=== PATIENT | female | born 1945 | race Caucasian/White ===

== ENCOUNTER 2018-12-03 06:17 | Emergency (ER) | payer MEDICARE, SELFPAY ==
[~2018-12-03] VITALS: Ht 162.6 cm; Wt 59.1 kg
--- NOTE | 2018-12-03 07:49 | REP ---
Left knee five views: There are no comparisons. There is diffuse demineralization. There is no patellar fracture. There is no fracture, otherwise. There is no joint effusion. There is no joint space narrowing. There are no calcifications except for vascular atheroma in the popliteal artery. There is slight deformity at the upper pole of the patella, possibly an old healed patellar injury. Impression: Demineralization. No evidence of arthropathy. No acute fracture. Slight deformity at the upper pole patella on the lateral view, possibly sequela of an old healed injury. No joint effusion. Electronically Signed by Riccardo Barker MD 12/03/2018 07:40 A
[2018-12-03 08:18] VITALS: BP 149/66
== END 2018-12-03 08:22 | disposition home or self-care (01) ==
LOC: M ED 06:17
DX: T74.11XA Adult physical abuse, confirmed, initial encounter (principal); Y07.499 Other family member, perpetrator of maltreatment and neglect; S83.92XA Sprain of unspecified site of left knee, initial encounter; S50.12XA Contusion of left forearm, initial encounter; Y92.098 Other place in other non-institutional residence as the place of occurrence of the external cause; F17.200 Nicotine dependence, unspecified, uncomplicated; Z88.5 Allergy status to narcotic agent; Z91.030 Bee allergy status

== ENCOUNTER 2019-08-08 08:02 | Inpatient (IN) | payer MEDICARE, SELFPAY ==
[~2019-08-08] VITALS: Ht 165.1 cm; Wt 56.8 kg
[2019-08-08] MEDS ORDERED: NS 1,000 ML IV SCH (08:06)
[2019-08-08 08:25] LABS: BASO % 0.4 % (0.0-1.0); EOS % 0.3 % (0.0-3.0); HEMATOCRIT 39.1 % (36.0-47.0); HEMOGLOBIN 13.4 g/dl (12.0-15.5); LYMPH # 1.6 10^3/uL (1.5-5.0); LYMPH % 22.8 % (24.0-44.0); MEAN CORPUSCULAR HEMOGLOBIN 34.6 pg (27.0-33.0); MEAN CORPUSCULAR HGB CONC 34.3 g/dl (32.0-36.5); MONO # 0.6 10^3/uL (0.0-0.8); MONO % 9.2 % (0.0-5.0); NEUTROPHILS # 4.6 10^3/uL (1.5-8.5); NEUTROPHILS % 66.9 % (36.0-66.0); PLATELET COUNT, AUTOMATED 150 10^3/uL (150-450); RED BLOOD COUNT 3.87 10^6/uL (4.00-5.40); WHITE BLOOD COUNT 6.8 10^3/uL (4.0-10.0)
[2019-08-08 08:41] LABS: INR 0.92; PROTHROMBIN TIME 12.1 SECONDS (11.8-14.0)
[2019-08-08] MEDS ORDERED: ISOVUE-370 76% 100ML VIAL As Ordered ONE (08:56)
[2019-08-08 08:57] LABS: ALBUMIN 3.3 GM/DL (3.2-5.2); ALT/SGPT 60 U/L (12-78); BILIRUBIN,DIRECT 0.4 MG/DL (0.0-0.2); BILIRUBIN,TOTAL 1.6 MG/DL (0.2-1.0); LIPASE 151 U/L (73-393)
[2019-08-08] MEDS ORDERED: PANTOPRAZOLE 40MG VIAL (C9113 PER 1) IV ONE (09:00)
[2019-08-08 09:17] LABS: CK-MB VALUE MASS 1.2 NG/ML (<3.6); CPK CREATINE PHOSPHOKINASE 106 U/L (26-192); MB/CK RELATIVE INDEX 1.13 (< OR =4); TROPONIN I < 0.02 NG/ML (< 0.10)
--- NOTE | 2019-08-08 10:02 | REP ---
CT ABDOMEN AND PELVIS WITH IV CONTRAST: TECHNIQUE: Axial contrast-enhanced images from the lung bases to the pubic symphysis using 100 mL Isovue-370 intravenous contrast material with multiplanar reformations. In the visualized lung bases, there are fibroatelectatic changes. There are prominent thickened interstitial markings in the right lower lobe which may represent fibrosis or pneumonitis. There is diffuse fatty infiltration of the liver. No liver mass is seen. Spleen is normal in size with no intrinsic abnormality. No adrenal mass is seen. No pancreatic mass is seen. The patient has had a prior cholecystectomy with expected prominence of the common bile duct. There is bilateral renal cortical scarring with no hydronephrosis. There is a subcentimeter cyst of the lower pole of the right kidney. There is atherosclerotic calcification of the abdominal aorta without aneurysm. There is no adenopathy. There is no free air or free fluid. There is no bowel thickening. There are scattered diverticula of the sigmoid and left colon without acute diverticulitis. Urinary bladder is not well distended and not evaluated. There is as small ventral hernia in the midline of the pelvis containing noninflamed fat with the aperture of the hernia approximately 2.2 cm in width. There are degenerative changes of the spine. IMPRESSION: Scattered diverticula of the sigmoid and left colon without acute diverticulitis. No bowel obstruction, free air or free fluid. Small ventral hernia in the midline of the pelvis contains noninflamed fat. No other evidence of acute finding. Electronically Signed by Riccardo Jones MD 08/08/2019 10:10 A
[2019-08-08] MEDS: NS 1,000 ML IV SCH ×2 (10:37→17:33)
--- NOTE | 2019-08-08 10:57 | HPEPDOC ---
General Date of Admission 08/08/19 Date of Service: August 08, 2019 Chief Complaint The patient is a 73-year-old female admitted with a reason for visit of Hemorrhoids. Source: Patient Exam Limitations: No limitations Timing/Duration: 24 hours Severity: Mild Associated Symptoms: Other (rectal bleeding) History of Present Illness Patient is 73 years old female with past medical history of ovarian cancer, history of uterine cancer presented to the hospital with rectal bleeding. Patient stated that yesterday evening she developed multiple episodes of bowel movements with stool covered with red blood. Patient stated that she has never had this symptoms before. Patient denied any history of colonoscopy. She denied fever, chills, nausea, vomiting, lightheadedness or dizziness. In ER pt was found to have hemoglobin 13.4, no leukocytosis, blood pressure was elevated to 194/93. CT was done and showed scattered diverticula of the sigmoid and left colon without acute diverticulitis. No bowel obstruction, free air or free fluid Home Medications No Active Prescriptions or Reported Meds Allergies Coded Allergies: bee pollen (Verified Allergy, Severe, stops breathing, 12/03/18) codeine (Verified Allergy, Severe, stopped breathing , 12/03/18) morphine (Verified Allergy, Severe, stopped breathing, 12/03/18) oxycodone (Verified Allergy, Severe, stopped breathing, 12/03/18) Past Medical History Medical History Ovarian cancer, uterine cancer, cholecystectomy Surgical History Cholecystectomy, total ureterectomy Family History I personally reviewed family history and found not pertinent Social History * Smoker: current smoker Alcohol: Denies Drugs: denies A-FIB/CHADSVASC A-FIB History Current/History of A-Fib/PAF?: No Current PO Anticoag Therapy: No Review of Systems Constitutional: Denies: Chills, Fever Eyes: Denies: Pain, Vision change ENT: Denies: Head Aches Skin: Denies: Rash Pulmonary: Denies: Dyspnea, Cough Cardiovascular: Denies: Chest Pain Gastrointestinal: Reports: Other Symptoms (rectal bleeding); Denies: Nausea Genitourinary: Denies: Dysuria, Frequency Hematologic: Denies: Bruising Endocrine: Denies: Polydipsia, Polyphagia Musculoskeletal: Denies: Neck Pain Neurological: Denies: Weakness, Numbness Psych: Reports: Mood Normal Physical Examination General Exam: Positive: Alert, Cooperative Eye Exam: Positive: PERRLA ENT Exam: Positive: Atraumatic Neck Exam: Positive: Supple; Negative: JVD Chest Exam: Positive: Clear to auscultation Heart Exam: Positive: Rate Normal Telemetry: Positive: No significant arrhythmia Abdomen Exam: Positive: BS Hyperactive, Tenderness (LLQ tenderness) Extremity Exam: Positive: Clubbing; Negative: Cyanosis Skin Exam: Positive: Nl turgor and temperature Neuro Exam: Positive: Normal Gait, Strength at 5/5 X4 ext Psych Exam: Positive: Mental status NL Vital Signs Vital Signs Date Time Temp Pulse Resp B/P (MAP) Pulse Ox O2 Delivery O2 Flow Rate FiO2 08/08/19 09:30 83 156/70 (98) 97 Room Air 08/08/19 08:08 98.3 22 Laboratory Data Labs 24H Laboratory Tests 2 08/08/19 08:11: Immature Granulocyte % (Auto) 0.4, Neutrophils (%) (Auto) 66.9H, Lymphocytes (%) (Auto) 22.8L, Monocytes (%) (Auto) 9.2H, Eosinophils (%) (Auto) 0.3, Basophils (%) (Auto) 0.4, Neutrophils # (Auto) 4.6, Lymphocytes # (Auto) 1.6, Monocytes # (Auto) 0.6, Eosinophils # (Auto) 0.0, Basophils # (Auto) 0.0, Nucleated Red Blood Cells % (auto) 0.0, Prothrombin Time 12.1, Prothromb Time International Ratio 0.92, Activated Partial Thromboplast Time 29.0, Total Bilirubin 1.6H, Direct Bilirubin 0.4H, Aspartate Amino Transf (AST/SGOT) 61H, Alanine Aminotransferase (ALT/SGPT) 60, Alkaline Phosphatase 96, Total Creatine Kinase 106, Creatine Kinase MB 1.2, Creatine Kinase MB Relative Index 1.13, Troponin I < 0.02, Total Protein 7.0, Albumin 3.3, Albumin/Globulin Ratio 0.9L, Lipase 151 08/08/19 08:15: POC Glucose (Misc Panel) 114H, POC Sodium (Misc Panel) 134L, POC Potassium (Misc Panel) 3.4L, POC Chloride (Misc Panel) 96L, POC Total CO2 (Misc Panel) 24.0, POC Blood Urea Nitrogen (Misc Panel 7L, POC Ionized Calcium (Misc Panel) 4.2L, POC Creatinine (Misc Panel) 0.8, POC Hematocrit (Misc Panel) 43.0 CBC/BMP Laboratory Tests 08/08/19 08:11 Assessment/Plan Patient is 73 years old female with past medical history of ovarian cancer, history of uterine cancer presented to the hospital with rectal bleeding. Patient stated that yesterday evening she developed multiple episodes of bowel movements with stool covered with red blood. Patient stated that she has never had this symptoms before. Patient denied any history of colonoscopy. She denied fever, chills, nausea, vomiting, lightheadedness or dizziness. In ER pt was found to have hemoglobin 13.4, no leukocytosis, blood pressure was elevated to 194/93. CT was done and showed scattered diverticula of the sigmoid and left colon without acute diverticulitis. No bowel obstruction, free air or free fluid Problems (1) GI bleed Status: Acute Problem Text: Most likely secondary to diverticulosis Hemoglobin stable H&H every 6 hours if patient continues to bleed I will ask GI team to evaluate PPI IV fluid (2) Diverticulosis Status: Acute Problem Text: See above (3) Hypertensive urgency Status: Acute Problem Text: Lisinopril 20 mg Patient stated that she didn't see PCP for years Continue to monitor Plan / VTE VTE Prophylaxis Ordered?: No VTE Exclusion Pharmacological: Active Bleeding SARA ARMENDARIZ DO August 08, 2019 10:57
[2019-08-08] MEDS ORDERED: lisinopriL 20 MG TAB PO ONE (11:00)
[2019-08-08 11:30] VITALS: BP 157/72
--- NOTE | 2019-08-08 12:17 | ECGEPIP ---
[facility] - ED Test Date: 2019-08-08 Pat Name: JESSIE LUZ Department: Room: - Gender: Female Curber: : 1945 Requested By: Millie Oh Order Number: [id number] Reading MD: Delta Palmer Measurements Intervals Clio Rate: 87 P: 63 MD: 155 QRS: 68 QRSD: 101 T: 81 QT: 401 QTc: 484 Interpretive Statements SINUS RHYTHM Nonspecific ST-T wave abnormalities Perhaps lateral st depression but significant artifact Comparison tracing not on file Electronically Signed on 08-08-2019 12:17:03 EDT by Delta Palmer
[2019-08-08] MEDS: ACETAMINOPHEN TAB 650MG DOSE (2X325MG) PO PRN ×3 (12:26→22:46)
[2019-08-08 14:00] VITALS: BP 125/58
[2019-08-08 16:06] LABS: HEMATOCRIT 36.8 % (36.0-47.0); HEMOGLOBIN 12.5 g/dl (12.0-15.5)
[2019-08-08] MEDS: NICOTINE 21MG/24HR 1 EA TRANSDERMAL TD SCH (17:33)
[2019-08-08] MEDS ORDERED: MOM 30ML SUSPENSION UDC PO ONE (18:30)
[2019-08-08] MEDS: PANTOPRAZOLE 40MG VIAL (C9113 PER 1) IV SCH (20:45)
[2019-08-08 22:00] VITALS: BP 125/57
[2019-08-08 22:20] LABS: HEMATOCRIT 36.9 % (36.0-47.0); HEMOGLOBIN 12.4 g/dl (12.0-15.5)
[2019-08-09] MEDS: NS 1,000 ML IV SCH ×3 (03:36→23:24)
[2019-08-09 04:06] LABS: HEMATOCRIT 33.2 % (36.0-47.0); HEMOGLOBIN 11.3 g/dl (12.0-15.5); MEAN CORPUSCULAR HEMOGLOBIN 35.1 pg (27.0-33.0); MEAN CORPUSCULAR VOLUME 103.1 fl (80.0-96.0); PLATELET COUNT, AUTOMATED 118 10^3/uL (150-450); RED BLOOD COUNT 3.22 10^6/uL (4.00-5.40); WHITE BLOOD COUNT 5.7 10^3/uL (4.0-10.0)
[2019-08-09 04:40] LABS: ALBUMIN 2.6 GM/DL (3.2-5.2); ALT/SGPT 39 U/L (12-78); BILIRUBIN,TOTAL 1.3 MG/DL (0.2-1.0); BLOOD UREA NITROGEN 5 MG/DL (7-18); CALCIUM LEVEL 7.5 MG/DL (8.8-10.2); CARBON DIOXIDE LEVEL 26 MEQ/L (21-32); CHLORIDE LEVEL 104 MEQ/L (98-107); GLOMERULAR FILTRATION RATE > 60.0 (>39); GLUCOSE, FASTING 85 MG/DL (70-100); MAGNESIUM LEVEL 2.1 MG/DL (1.8-2.4); SODIUM LEVEL 139 MEQ/L (136-145); TOTAL PROTEIN 5.3 GM/DL (6.4-8.2)
[2019-08-09 06:00] VITALS: BP 121/59
[2019-08-09] MEDS ORDERED: POLYETHYLENE GLYCOL (MIRALAX) 238GM BOTTLE PO ONE ×2 (08:00→17:00)
[2019-08-09] MEDS: PANTOPRAZOLE 40MG VIAL (C9113 PER 1) IV SCH ×2 (08:51→21:12)
[2019-08-09] MEDS: NICOTINE 21MG/24HR 1 EA TRANSDERMAL TD SCH (08:52)
[2019-08-09] MEDS ORDERED: POTASSIUM CHLORIDE 10 MEQ SR TABLET PO ONE (09:00)
--- NOTE | 2019-08-09 11:51 | IPNPDOC ---
Text Note Date of Service The patient was seen on 08/09/19. NOTE Subjective: Pt developed a few bm overnight covered with blood. Patient denies fever, chills, nausea, vomiting, chest pain, dysuria Objective: VITAL SIGNS: Please see below. GENERAL: awake, alert, NAD HEENT: NCAT, anicteric sclera, STANISLAW NECK: supple, no JVD CARDIOVASCULAR EXAMINATION: NS1S2, regular rate/rhythm RESPIRATORY EXAMINATION: CTA b/l, no wheezes/rales/rhonchi ABDOMINAL EXAMINATION: positive bowel sounds x 4, mild tenderness in the left lower quadrant EXTREMITIES: no cyanosis, clubbing, edema SKIN: warm, no rashes. NEUROLOGICAL EXAMINATION: AAO x 3, no motor/sensory deficits PSYCHIATRIC EXAMINATION: calm, normal affect Assessment/Plan Patient is 73 years old female with past medical history of ovarian cancer, history of uterine cancer presented to the hospital with rectal bleeding. Patient stated that yesterday evening she developed multiple episodes of bowel movements with stool covered with red blood. Patient stated that she has never had this symptoms before. Patient denied any history of colonoscopy. She denied fever, chills, nausea, vomiting, lightheadedness or dizziness. In ER pt was found to have hemoglobin 13.4, no leukocytosis, blood pressure was elevated to 194/93. CT was done and showed scattered diverticula of the sigmoid and left colon without acute diverticulitis. No bowel obstruction, free air or free fluid Problems (1) GI bleed Most likely secondary to diverticulosis Hemoglobin stable H&H every 6 hours GI team will proceed with colonoscopy tomorrow PPI IV fluid (2) Diverticulosis See above (3) Hypertensive urgency Lisinopril 20 mg Patient stated that she didn't see PCP for years Continue to monitor Plan / VTE VTE Prophylaxis Ordered?: No VTE Exclusion Pharmacological: Active Bleeding VS,Fishbone, I+O VS, Fishbone, I+O Laboratory Tests 08/08/19 15:52 08/08/19 22:01 08/09/19 04:01 08/09/19 10:53 Vital Signs Date Time Temp Pulse Resp B/P (MAP) Pulse Ox O2 Delivery O2 Flow Rate FiO2 08/09/19 06:00 98.4 77 18 121/59 (79) 97 Room Air I&O- Last 24 Hours up to 6 AM 08/09/19 05:59 Intake Total 1880 ml Output Total 0 ml Balance 1880 ml SARA ARMENDARIZ DO August 09, 2019 11:51
[2019-08-09 14:00] VITALS: BP 134/65
[2019-08-09 15:56] LABS: HEMATOCRIT 37.8 % (36.0-47.0); HEMOGLOBIN 13.1 g/dl (12.0-15.5)
[2019-08-09] MEDS ORDERED: MIRALAX *UNIT DOSE* 17GM PACKET PO ONE (17:15)
[2019-08-09] MEDS ORDERED: lisinopriL 20 MG TAB PO SCH (21:00)
[2019-08-09 21:12] VITALS: BP 134/65
[2019-08-09 22:00] VITALS: BP 182/95
[2019-08-09 22:22] LABS: HEMATOCRIT 35.2 % (36.0-47.0); HEMOGLOBIN 11.9 g/dl (12.0-15.5)
[2019-08-10 04:00] LABS: HEMATOCRIT 34.4 % (36.0-47.0); HEMOGLOBIN 11.7 g/dl (12.0-15.5)
[2019-08-10 06:00] VITALS: BP 162/83
[2019-08-10 07:48] VITALS: BP 171/79
[2019-08-10 08:36] LABS: BLOOD UREA NITROGEN 2 MG/DL (7-18); CALCIUM LEVEL 7.7 MG/DL (8.8-10.2); CARBON DIOXIDE LEVEL 25 MEQ/L (21-32); CHLORIDE LEVEL 103 MEQ/L (98-107); CREATININE FOR GFR 0.42 MG/DL (0.55-1.30); GLOMERULAR FILTRATION RATE > 60.0 (>39); GLUCOSE, FASTING 73 MG/DL (70-100); MAGNESIUM LEVEL 1.9 MG/DL (1.8-2.4); POTASSIUM SERUM 2.7 MEQ/L (3.5-5.1); SODIUM LEVEL 139 MEQ/L (136-145)
[2019-08-10] MEDS ORDERED: LIDOCAINE 2% 100MG/5ML SDV (FOR ANES.) As Ordered ONE (08:44)
[2019-08-10] MEDS ORDERED: propofoL 200 MG/20 ML VIAL As Ordered ONE ×2 (08:44→09:09)
--- NOTE | 2019-08-10 09:26 | ROOR ---
Patient Name: Chen Blanca Procedure Date: 08/10/2019 8:16 AM Date of : 1945 Age: 73 Room: Main OR Gender: Female Note Status: Finalized Procedure: Colonoscopy Indications: Hematochezia, Acute post hemorrhagic anemia Providers: Delta DIA MD Referring MD: 2. Inpatient 2. Inpatient Requesting Provider: Medicines: Monitored Anesthesia Care Complications: No immediate complications. Procedure: Pre-Anesthesia Assessment: - The heart rate, respiratory rate, oxygen saturations, blood pressure, adequacy of pulmonary ventilation, and response to care were monitored throughout the procedure. The Colonoscope was introduced through the anus and advanced to the cecum, identified by appendiceal orifice and ileocecal valve. The colonoscopy was somewhat difficult due to multiple diverticula in the colon. The patient tolerated the procedure well. The quality of the bowel preparation was fair. Findings: Hemorrhoids were found on perianal exam. A frond-like/villous non-obstructing medium-sized mass was found in the proximal ascending colon. The mass measured four cm in length. No bleeding was present. The polyp was partially removed with a piecemeal technique using a cold snare. Polyp resection was incomplete. The resected tissue was retrieved. Multiple small and large-mouthed diverticula were found in the sigmoid colon. There was narrowing of the colon in association with the diverticular opening. There was evidence of diverticular spasm. Prolapsed internal hemorrhoids were found during retroflexion. The hemorrhoids were medium-sized. Impression: - Preparation of the colon was fair/suboptimal in a few areas. - Hemorrhoids found on perianal exam. - 4 cm flat multilobed villous lesion in the proximal ascending colon (3 cm distal to ileocecal valve). The lesion was sampled via cold snare. The lesion was NOT REMOVED. - Moderate diverticulosis in the sigmoid colon. There was narrowing of the colon in association with the diverticular opening. There was evidence of diverticular spasm. - Prolapsed internal hemorrhoids. (- Suspect source for rectal bleeding is related to hemorrhoidal bleed, or related to a low grade diverticular bleed. There is no further bleeding at this time) Recommendation: - Await pathology results. - Refer to a surgeon for resection of ascending colon lesion at appointment to be scheduled. (endoscopically unresectable). - Repeat colonoscopy in 1-2 years post resection. (suboptimal prep in a few areas). Delta Dia MD Delta DIA MD 08/10/2019 9:25:46 AM Electronically signed by Delta DIA MD Number of Addenda: 0 Note Initiated On: 08/10/2019 8:16 AM Estimated Blood Loss: Estimated blood loss: none.
[2019-08-10 10:19] LABS: HEMOGLOBIN 11.8 g/dl (12.0-15.5)
[2019-08-10] MEDS: PANTOPRAZOLE 40MG VIAL (C9113 PER 1) IV SCH (10:22)
[2019-08-10] MEDS: NICOTINE 21MG/24HR 1 EA TRANSDERMAL TD SCH (10:23)
[2019-08-10] MEDS ORDERED: POTA20TA6 PO (10:52)
[2019-08-10] MEDS ORDERED: NICO21PAT TD (10:52)
[2019-08-10] MEDS ORDERED: LISI-538 PO (10:52)
[2019-08-10] MEDS ORDERED: POTASSIUM CHLORIDE 10 MEQ SR TABLET PO ONE ×3 (11:00→16:00)
[2019-08-10] MEDS ORDERED: KCL 10MEQ/100ML SWI (KRUN) 10 MEQ in IV 1 EA IV ONE (11:00)
[2019-08-10] MEDS: NS 1,000 ML IV SCH (12:22)
--- NOTE | 2019-08-10 13:28 | DS.PDOC ---
Discharge Summary General Date of Admission August 08, 2019 at 10:22 Date of Discharge 08/10/19 Discharge Summary PROCEDURES PERFORMED DURING STAY: [None]. ADMITTING DIAGNOSES: GI bleed Diverticulosis Hypertensive urgency DISCHARGE DIAGNOSES: GI bleed Diverticulosis Hypertensive urgency COMPLICATIONS/CHIEF COMPLAINT: Gi Bleed. HISTORY OF PRESENT ILLNESS: Patient is 73 years old female with past medical history of ovarian cancer, history of uterine cancer presented to the hospital with rectal bleeding. Patient stated that yesterday evening she developed multiple episodes of bowel movements with stool covered with red blood. Patient stated that she has never had this symptoms before. Patient denied any history of colonoscopy. She denied fever, chills, nausea, vomiting, lightheadedness or dizziness. In ER pt was found to have hemoglobin 13.4, no leukocytosis, blood pressure was elevated to 194/93. CT was done and showed scattered diverticula of the sigmoid and left colon without acute diverticulitis. No bowel obstruction, free air or free fluid HOSPITAL COURSE: During hospital stay following issues addressed Colonoscopy was done. It showed Findings: Hemorrhoids were found on perianal exam. A frond-like/villous non-obstructing medium-sized mass was found in the proximal ascending colon. The mass measured four cm in length. No bleeding was present. The polyp was partially removed with a piecemeal technique using a cold snare. Polyp resection was incomplete. The resected tissue was retrieved. Multiple small and large-mouthed diverticula were found in the sigmoid colon. There was narrowing of the colon in association with the diverticular opening. There was evidence of diverticular spasm. Prolapsed internal hemorrhoids were found during retroflexion. The hemorrhoids were medium-sized. Impression: - Preparation of the colon was fair/suboptimal in a few areas. - Hemorrhoids found on perianal exam. - 4 cm flat multilobed villous lesion in the proximal ascending colon (3 cm distal to ileocecal valve). The lesion was sampled via cold snare. The lesion was NOT REMOVED. - Moderate diverticulosis in the sigmoid colon. There was narrowing of the colon in association with the diverticular opening. There was evidence of diverticular spasm. - Prolapsed internal hemorrhoids. (- Suspect source for rectal bleeding is related to hemorrhoidal bleed, or related to a low grade diverticular bleed. There is no further bleeding at this time) Recommendation: - Await pathology results. - Refer to a surgeon for resection of ascending colon lesion at appointment to be scheduled. (endoscopically unresectable). - Repeat colonoscopy in 1-2 years post resection. (suboptimal prep in a few areas). DISCHARGE MEDICATIONS: Please see below. ALLERGIES: Please see below. PHYSICAL EXAMINATION ON DISCHARGE: VITAL SIGNS: Please see below. GENERAL: awake, alert, NAD HEENT: NCAT, anicteric sclera, STANISLAW NECK: supple, no JVD CARDIOVASCULAR EXAMINATION: NS1S2, regular rate/rhythm RESPIRATORY EXAMINATION: CTA b/l, no wheezes/rales/rhonchi ABDOMINAL EXAMINATION: positive bowel sounds x 4, mild tenderness in the left lower quadrant EXTREMITIES: no cyanosis, clubbing, edema SKIN: warm, no rashes. NEUROLOGICAL EXAMINATION: AAO x 3, no motor/sensory deficits PSYCHIATRIC EXAMINATION: calm, normal affect LABORATORY DATA: Please see below. IMAGING: CT ABDOMEN AND PELVIS WITH IV CONTRAST: TECHNIQUE: Axial contrast-enhanced images from the lung bases to the pubic symphysis using 100 mL Isovue-370 intravenous contrast material with multiplanar reformations. In the visualized lung bases, there are fibroatelectatic changes. There are prominent thickened interstitial markings in the right lower lobe which may represent fibrosis or pneumonitis. There is diffuse fatty infiltration of the liver. No liver mass is seen. Spleen is normal in size with no intrinsic abnormality. No adrenal mass is seen. No pancreatic mass is seen. The patient has had a prior cholecystectomy with expected prominence of the common bile duct. There is bilateral renal cortical scarring with no hydronephrosis. There is a subcentimeter cyst of the lower pole of the right kidney. There is atherosclerotic calcification of the abdominal aorta without aneurysm. There is no adenopathy. There is no free air or free fluid. There is no bowel thickening. There are scattered diverticula of the sigmoid and left colon without acute diverticulitis. Urinary bladder is not well distended and not evaluated. There is as small ventral hernia in the midline of the pelvis containing noninflamed fat with the aperture of the hernia approximately 2.2 cm in width. There are degenerative changes of the spine. IMPRESSION: Scattered diverticula of the sigmoid and left colon without acute diverticulitis. No bowel obstruction, free air or free fluid. Small ventral hernia in the midline of the pelvis contains noninflamed fat. No other evidence of acute finding. PROGNOSIS: Fair ACTIVITY: [As tolerated]. DIET: Cardiac DISPOSITION: Home DISCHARGE INSTRUCTIONS: See above ITEMS TO FOLLOWUP ON ON OUTPATIENT: Follow-up with PCP, surgeon, GI DISCHARGE CONDITION: [Stable]. TIME SPENT ON DISCHARGE: Greater than 20 minutes. Vital Signs/I&Os Vital Signs Date Time Temp Pulse Resp B/P (MAP) Pulse Ox O2 Delivery O2 Flow Rate FiO2 08/10/19 09:32 75 16 142/85 (104) 99 Room Air 08/10/19 09:17 97.1 I&O- Last 24 Hours up to 6 AM 08/10/19 05:59 Intake Total 2470 ml Output Total 0 ml Balance 2470 ml Laboratory Data Labs 24H Laboratory Tests 2 08/10/19 03:50: Anion Gap 11, Glomerular Filtration Rate > 60.0, Calcium Level 7.7L, Magnesium Level 1.9 08/10/19 13:11: CBC/BMP Laboratory Tests 08/09/19 15:43 08/09/19 22:04 08/10/19 03:50 08/10/19 09:59 Discharge Medications Scheduled Lisinopril (Lisinopril) 20 Mg Tablet, 20 MG PO QHS Nicotine (Nicotine Patch) 21 Mg Patch.td24, 1 PATCH TD DAILY Potassium Chloride (Potassium Chloride) 20 Meq Tab.er.prt, 1 TAB PO DAILY Allergies Coded Allergies: bee pollen (Verified Allergy, Severe, stops breathing, 12/03/18) codeine (Verified Allergy, Severe, stopped breathing , 12/03/18) morphine (Verified Allergy, Severe, stopped breathing, 12/03/18) oxycodone (Verified Allergy, Severe, stopped breathing, 12/03/18) SARA ARMENDARIZ DO August 10, 2019 13:28
[2019-08-10 13:56] LABS: BLOOD UREA NITROGEN 2 MG/DL (7-18); CALCIUM LEVEL 7.6 MG/DL (8.8-10.2); CARBON DIOXIDE LEVEL 25 MEQ/L (21-32); CHLORIDE LEVEL 101 MEQ/L (98-107); CREATININE FOR GFR 0.67 MG/DL (0.55-1.30); GLOMERULAR FILTRATION RATE > 60.0 (>39); GLUCOSE, FASTING 188 MG/DL (70-100); POTASSIUM SERUM 2.7 MEQ/L (3.5-5.1); SODIUM LEVEL 135 MEQ/L (136-145)
[2019-08-10 14:00] VITALS: BP 158/81
[2019-08-10 14:57] LABS: BASO % 0.5 % (0.0-1.0); EOS # 0.1 10^3/uL (0.0-0.5); EOS % 1.2 % (0.0-3.0); LYMPH # 1.8 10^3/uL (1.5-5.0); LYMPH % 27.6 % (24.0-44.0); MEAN CORPUSCULAR HEMOGLOBIN 35.3 pg (27.0-33.0); MEAN CORPUSCULAR HGB CONC 34.3 g/dl (32.0-36.5); MONO # 0.6 10^3/uL (0.0-0.8); MONO % 8.7 % (0.0-5.0); NEUTROPHILS % 61.5 % (36.0-66.0); PLATELET COUNT, AUTOMATED 121 10^3/uL (150-450); RED BLOOD COUNT 3.31 10^6/uL (4.00-5.40); WHITE BLOOD COUNT 6.6 10^3/uL (4.0-10.0)
== END 2019-08-10 16:00 | disposition home or self-care (01) | DRG 379 ==
LOC: M ED 08:02 → EDBD 08:02 → M ED INP 10:22 → ENRESERV 11:00 → M MS5PR 11:30
PROVIDERS: ADMIT Internal Medicine; ATTEND Internal Medicine
PROC: 0DBK8ZX Excision of Ascending Colon, Via Natural or Artificial Opening Endoscopic, Diagnostic (ICD-10-PCS; principal; 2019-08-10 08:00)
DX: K57.31 Diverticulosis of large intestine without perforation or abscess with bleeding (principal); K64.8 Other hemorrhoids; F17.200 Nicotine dependence, unspecified, uncomplicated; I16.0 Hypertensive urgency; K63.89 Other specified diseases of intestine; D12.2 Benign neoplasm of ascending colon; Z85.43 Personal history of malignant neoplasm of ovary; Z85.42 Personal history of malignant neoplasm of other parts of uterus; Z88.5 Allergy status to narcotic agent; Z91.030 Bee allergy status

== ENCOUNTER → 2019-10-09 | Outpatient (REF) | payer MEDICARE, MEDICAID ==
[~2019-10-09] MED LIST: ACET-897 PO; AMLO1TAB24 PO; LISI-538 PO; MULTCAP PO; NICO21PAT TD; POTA20TA6 PO; VITMTA PO
[2019-11-06 13:09] LABS: HEMATOCRIT 45.8 % (36.0-47.0); HEMOGLOBIN 15.3 g/dl (12.0-15.5); MEAN CORPUSCULAR HEMOGLOBIN 34.7 pg (27.0-33.0); MEAN CORPUSCULAR HGB CONC 33.4 g/dl (32.0-36.5); MEAN CORPUSCULAR VOLUME 103.9 fl (80.0-96.0); PLATELET COUNT, AUTOMATED 240 10^3/uL (150-450); RED BLOOD COUNT 4.41 10^6/uL (4.00-5.40); WHITE BLOOD COUNT 8.6 10^3/uL (4.0-10.0)
[2019-11-09 08:08] LABS: ALBUMIN 3.3 GM/DL (3.2-5.2); ALT/SGPT 44 U/L (12-78); BILIRUBIN,TOTAL 0.7 MG/DL (0.2-1.0); BLOOD UREA NITROGEN 5 MG/DL (7-18); CALCIUM LEVEL 9.2 MG/DL (8.8-10.2); CARBON DIOXIDE LEVEL 30 MEQ/L (21-32); CHLORIDE LEVEL 97 MEQ/L (98-107); CHOLESTEROL LEVEL 234 MG/DL (<200); CHOLESTEROL RISK RATIO 2.962 (<5); CREATININE FOR GFR 0.75 MG/DL (0.55-1.30); GLOMERULAR FILTRATION RATE > 60.0 (>39); GLUCOSE, FASTING 119 MG/DL (70-100); HDL CHOLESTEROL 79 MG/DL (>40); LDL CHOLESTEROL 134 MG/DL (<100); NON-HDL-C 155 MG/DL; POTASSIUM SERUM 4.5 MEQ/L (3.5-5.1); SODIUM LEVEL 135 MEQ/L (136-145); TRIGLYCERIDES LEVEL 105 MG/DL (<150)
[2019-11-12 10:31] LABS: HEMOGLOBIN A1c 4.9 %
== END ==
LOC: M SFHCPLAZ 14:09
PROVIDERS: ATTEND Family Medicine
DX: Z01.818 Encounter for other preprocedural examination (principal); Z13.1 Encounter for screening for diabetes mellitus; E87.6 Hypokalemia; E78.5 Hyperlipidemia, unspecified; K62.5 Hemorrhage of anus and rectum

== ENCOUNTER → 2019-10-13 | Outpatient (CLI) | payer MEDICARE, MEDICAID | LOC: EDSTATUS 15:09 → M ED 18:50 → M RAD 18:50 | PROVIDERS: ATTEND Surgery | DX: Z01.818 Encounter for other preprocedural examination (principal); D12.2 Benign neoplasm of ascending colon ==

== ENCOUNTER 2019-10-14 10:00 | Inpatient (IN) | payer MEDICARE, MEDICAID ==
[~2019-10-14] VITALS: Ht 167.6 cm; Wt 64.0 kg
[~2019-10-14 10:00] MED LIST changes: -ACET-897 PO; -AMLO1TAB24 PO; -VITMTA PO
[2019-10-14] MEDS ORDERED: cefoTEtan INJ 2GM VIAL (S0074 PER 500MG) As Ordered ONE (10:31)
[2019-10-14] MEDS ORDERED: ALVIMOPAN 12 MG CAPSULE (ENTEREG) As Ordered ONE (10:31)
[2019-10-14] MEDS ORDERED: LIDOCAINE 2% 100MG/5ML SDV (FOR ANES.) As Ordered ONE (13:09)
[2019-10-14] MEDS ORDERED: propofoL 200 MG/20 ML VIAL As Ordered ONE (13:09)
[2019-10-14] MEDS ORDERED: fentaNYL 250 MCG/5 ML INJECTION (J3010) As Ordered ONE (13:10)
[2019-10-14] MEDS ORDERED: ROCURONIUM BROMIDE 50 MG/5 ML VIAL As Ordered ONE ×2 (13:10→16:23)
[2019-10-14] MEDS ORDERED: MIDAZOLAM INJ 2MG/2ML VIAL (J2250 PER 1MG) As Ordered ONE (13:10)
[2019-10-14] MEDS ORDERED: BUPIVACAINE HCL 0.25% 30ML VIAL As Ordered ONE (13:54)
[2019-10-14] MEDS ORDERED: metroNIDAZOLE/NACL 500MG(5MG/ML) 100ML BAG (S0030) As Ordered ONE (14:18)
[2019-10-14] MEDS ORDERED: PHENYLephrine HCL 500 MCG/5 ML (100MCG/ML) SYRINGE (J2370) As Ordered ONE (15:17)
[2019-10-14] MEDS ORDERED: dexameTHASONE 4 MG/ML 1ML VIAL (J1100 PER 1MG) As Ordered ONE (15:30)
[2019-10-14] MEDS ORDERED: ONDANSETRON 4MG/2ML VIAL As Ordered ONE (16:49)
[2019-10-14] MEDS ORDERED: SUGAMMADEX SODIUM 500 MG/5 ML VIAL (BRIDION) As Ordered ONE (16:49)
[2019-10-14] MEDS ORDERED: ACETAMINOPHEN 1000MG 100ML IV BTL (OFIRMEV) (J0131 PER 10MG) As Ordered ONE (17:07)
[2019-10-14] MEDS ORDERED: HYDROmorphone HCL 2 MG/ML 1ML VIAL (J1170) As Ordered ONE (17:28)
[2019-10-14] MEDS ORDERED: ePHEDrine SULFATE 25 MG/5 ML(5MG/ML) SYRINGE As Ordered ONE (17:41)
[2019-10-14] MEDS ORDERED: HYDROMORPHONE HCL 0.5 MG/ 0.5 ML SYRINGE (J1170 PER 1) As Ordered ONE ×3 (18:52→19:20)
[2019-10-14] MEDS ORDERED: KETOROLAC 30 MG/ML 1ML VIAL As Ordered ONE (19:20)
[2019-10-14] MEDS ORDERED: metroNIDAZOLE/NACL 500MG(5MG/ML) 100ML BAG (S0030) ONE (22:47)
[2019-10-14] MEDS ORDERED: ACETAMINOPHEN 325 MG TAB ONE (22:52)
[2019-10-15] MEDS ORDERED: HYDROMORPHONE HCL 0.5 MG/ 0.5 ML SYRINGE (J1170 PER 1) As Ordered ONE ×4 (01:08→20:54)
[2019-10-15] MEDS ORDERED: KETOROLAC 30 MG/ML 1ML VIAL As Ordered ONE ×2 (08:05→16:09)
[2019-10-15] MEDS ORDERED: metroNIDAZOLE/NACL 500MG(5MG/ML) 100ML BAG (S0030) As Ordered ONE (08:06)
[2019-10-15] MEDS ORDERED: NICOTINE 14 MG/24 HR TRANSDERMAL As Ordered ONE (10:25)
[2019-10-15] MEDS ORDERED: ACETAMINOPHEN TAB 650MG DOSE (2X325MG) As Ordered ONE ×2 (12:05→23:49)
[2019-10-15] MEDS ORDERED: cefoTEtan INJ 1GM VIAL (S0074 PER 500MG) ONE (13:00)
[2019-10-15] MEDS ORDERED: ONDANSETRON 4MG/2ML VIAL As Ordered ONE (20:59)
[2019-10-16] MEDS ORDERED: HYDROMORPHONE HCL 0.5 MG/ 0.5 ML SYRINGE (J1170 PER 1) As Ordered ONE ×2 (05:57→13:52)
[2019-10-16] MEDS ORDERED: NICOTINE 14 MG/24 HR TRANSDERMAL As Ordered ONE (09:35)
[2019-10-16] MEDS ORDERED: IBUPROFEN 400 MG TAB As Ordered ONE (18:58)
[2019-10-16] MEDS ORDERED: ACETAMINOPHEN 325 MG TAB As Ordered ONE (22:02)
[2019-10-17] MEDS ORDERED: IBUPROFEN 400 MG TAB As Ordered ONE (01:05)
[2019-10-17] MEDS ORDERED: ACETAMINOPHEN 325 MG TAB As Ordered ONE (07:41)
[2019-10-17] MEDS ORDERED: NICOTINE 14 MG/24 HR TRANSDERMAL As Ordered ONE (09:12)
--- NOTE | 2019-11-26 13:19 | IPN ---
DATE: 10/15/2019 SUBJECTIVE: Patient is now postop day one from a robotic-assisted laparoscopic right hemicolectomy for a polyp of the proximal ascending colon. She is general has done very well following the surgery. She has been taking some clear liquids, but has not taken much yet. She has been out of bed to the bathroom. She denies any nausea or vomiting, but is having some abdominal pain. OBJECTIVE: VITAL SIGNS: Reveal that she has been afebrile and there is no evidence of tachycardia. Her blood pressure is acceptable. GENERAL: Patient is awake and alert. HEART: Shows a regular rhythm. LUNGS: Clear. ABDOMEN: Shows that her incisions are dressed and her dressings are clean and dry. The abdomen may be very slightly distended. She does have bowel sounds present. She is tender particularly in the right mid-abdomen about at the level of her longer midline incision. IMPRESSION: Patient is doing well postoperative day one from her right hemicolectomy. PLAN: She will be advanced to a full liquid diet. We will monitor her intake and saline lock her IV when she has taken an adequate amount. She is encouraged to be up out of bed. She has some pain medication ordered, and she was encouraged to use this as necessary. I advised her that I would expect her to be ready for discharge on or about the third postop day. WEI
--- NOTE | 2019-11-26 13:21 | IPN ---
DATE: 10/16/2019 SUBJECTIVE: Patient is now postop day two from a right hemicolectomy for a large non-endoscopically resectable polyp. Her pathology is still pending. Patient reports she feels much better today with decreased pain. She has been taking liquids well and has been advanced to a regular diet. OBJECTIVE: VITAL SIGNS: Show she has been afebrile with stable vitals. LUNGS: She has clear breath sounds. HEART: Regular rate and rhythm. ABDOMEN: Nondistended. She has active bowel sounds. She still has some tenderness in the right side of the abdomen. Her incisions are clean and dry with no sign of hematoma or infection. EXTREMITIES: The calves are nontender and there is no peripheral edema identified. IMPRESSION: Patient is doing much better today pain-joyce following her right hemicolectomy. PLAN: She was encouraged to continue her regular diet. She has noted some small amount of stool today on one occasion and has been passing some flatus. I advised her that if she continues to do well that I would anticipate, she would be ready for discharge tomorrow on postop day three. WEI
[2019-12-13 08:44] LABS: HEMATOCRIT 37.8 % (36.0-47.0); HEMOGLOBIN 12.2 g/dl (12.0-15.5); MEAN CORPUSCULAR HEMOGLOBIN 34.6 pg (27.0-33.0); MEAN CORPUSCULAR HGB CONC 32.3 g/dl (32.0-36.5); MEAN CORPUSCULAR VOLUME 107.1 fl (80.0-96.0); PLATELET COUNT, AUTOMATED 182 10^3/uL (150-450); RED BLOOD COUNT 3.53 10^6/uL (4.00-5.40); WHITE BLOOD COUNT 9.1 10^3/uL (4.0-10.0)
--- NOTE | 2019-12-18 15:17 | RO ---
DATE OF OPERATION: 10/14/2019 PREOPERATIVE DIAGNOSIS: Ascending colon polyp. POSTOPERATIVE DIAGNOSIS: Non-endoscopically resectable ascending colon polyp. PROCEDURE(S) PERFORMED: Robotic-assisted laparoscopic right hemicolectomy with ileocolonic anastomosis. Lysis of adhesions was also performed. SURGEON: Richard Cabezas M.D. PHARMACEUTICAL ANALYST: DO Dr. Oscar Lin assistance was necessary for exposure of the ends of the terminal ileum and colon and performance and the stapled anastomosis. ANESTHESIA: General. INDICATIONS FOR PROCEDURE: The patient is a 74-year-old woman who on endoscopy was found to have an approximately 3-4 cm sessile polyp in the proximal ascending colon. Some biopsies were obtained with a cold snare, which confirmed an adenoma, but the closing agent felt that this was a non-endoscopically resectable polyp and recommended resection. She is now for a right hemicolectomy. OPERATIVE PROCEDURE: The patient was brought in the operating room and placed on the table in a supine position. She was placed under general endotracheal anesthesia. TEDs and sequentials were utilized. A Barry catheter was inserted. Patient was placed supine. The patients abdomen was prepped and draped in a sterile fashion. A 0.25% Marcaine was infiltrated in each of the trocar sites as needed. A short transverse high left upper quadrant incision was made. A Veress needle was inserted and after posit positive hanging drop test, the abdomen was inflated with carbon dioxide gas. An 8-mm robotic port was placed over a 5-mm scope and advanced through the abdominal wall without difficulty. The laparoscope was inserted. Initial examination showed some adhesions of the lower midline associated with a low midline incision she had. There were also some adhesions in the upper abdomen along the midline and right upper quadrant from a previous cholecystectomy. A second 8-mm port was placed slightly to the right of the midline and slightly above the level of the umbilicus. Using a handheld cauterizing scissor through this port, some of the adhesions were taken down to better expose the midline and locate the areas for the remaining two trocars. A third 12-mm port was placed along the midline just below the umbilicus and a fourth port was placed in the left lower quadrant. The patient cart of the [employer] robot was then brought into position and the endoscope port was docked. Targeting took place in the right upper quadrant in the general area of the hepatic flexure. A cauterizing scissor was placed in the left upper quadrant and a grasping retractor and force bipolar were placed in the right lower quadrant and low midline ports. I then moved to the control consol to begin the robotic portion of the procedure. I continued to take down some adhesions in the upper abdomen and right upper quadrant. The ascending colon was clearly identified. There were some adhesions of the colon along the lateral aspect of the abdomen. Colon was also fairly well-adhesed to the undersurface of the liver in the area of her previous cholecystectomy. Inspection of the ileocolic area showed that the terminal ileum was nicely mobile. A few filmy attachments of the terminal ileum to the retroperitoneum were divided using the cauterizing scissor. I selected a point for transection of the terminal ileum and created a small opening through the mesentery at that point. The lateral attachments of the cecum and ascending colon were divided using the cauterizing scissor initially and the avascular plane was entered and the colon rolled medially. The transverse colon was identified. Using the vessel feeler, the attachments of the mid and proximal transverse colon were divided. This was carried from the midpoint across beneath the liver where the colon was quite adherent to the liver. The peritoneum was opened and the fatty tissues of the attachments in this area were divided using the vessel feeler. The retroperitoneal portion of the duodenum was identified and protected. The dissection was carried across the superior aspect of the hepatic flexure then down along the lateral aspect of the ascending colon. Once the hepatic flexure had been largely mobilized, the terminal ileum was transected with a blue load of the endoscopic 45-mm robotic stapler. The mesentery was dissected down to its base with the vessel feeler. The transverse colon was then transected in the proximal transverse colon with a load of the 45-mm stapler. Again, the mesentery was divided down to its base. Attention was then turned to the ileocolic vessel. This was divided near its base in the retroperitoneum and the mesentery of the ascending colon was then divided working proximally. The final attachments of the mesentery of the distal ascending colon were then divided completely freeing the specimen. Inspection revealed no evidence of any injury to the duodenum. There was no bleeding identified. The terminal ileum and proximal transverse colon were then checked for their degree of mobility. It was necessary to divide some of the attachments of the omentum to the superior aspect of the transverse colon to allow adequate mobility for this to come to the area of the anastomosis. The robot was then undocked after removing the robotic instruments. A handheld laparoscope was inserted and graspers were used to grab the specimen, the end of the terminal ileum, and the end of the colon. A midline incision was made at the site of the infraumbilical midline port site. This was extended to approximately 6-7 cm. The fascia was opened and the peritoneum was then entered. A Mobius retractor was utilized. The specimen was delivered. There did appear to be some thickening in the wall of the proximal ascending colon. This was subsequently opened longitudinally revealing an approximately 3.5 cm fleshy mass just distal to the ileocecal valve. There also appeared to be an approximately 1.5 to 2 cm submucosal lipoma in the ascending colon. The specimen was sent for permanent pathology. The end of the terminal ileum and the end of the colon were brought through the Mobius retractor. The bowel nicely lined up for a stapled anastomosis. This was accomplished with a linear cutter 55 stapler and a TX60G stapler to complete the anastomosis. Several reinforcing sutures of 3-0 Vicryl were placed. The area of the anastomosis was then irrigated with saline and this was then reduced into the abdomen. The Mobius retractor was removed. The surgical team changed gloves and we then moved on with the closing tray. The fascia was somewhat thinned, particularly on the right side of the incision, which had been placed through an old scar from her prior hysterectomy. The edges of the fascia were trimmed and better identified, and the incision was then closed with interrupted simple sutures of 1-Vicryl. The skin incisions were then all closed with buried 4-0 Vicryl and Steri-Strips. Light dressings were applied. The patient tolerated the procedure well without apparent complication. The patients Barry catheter was removed. She was awakened in the operating room, extubated, and moved to the recovery room in stable condition. WEI
[2020-01-07 15:09] LABS: BLOOD UREA NITROGEN 8 MG/DL (7-18); GLUCOSE, FASTING 139 MG/DL (70-100)
[2020-01-07 15:10] LABS: CALCIUM LEVEL 8.1 MG/DL (8.8-10.2); CARBON DIOXIDE LEVEL 29 mmol/L (20-29); CHLORIDE LEVEL 105 MEQ/L (98-107); CREATININE FOR GFR 0.89 MG/DL (0.55-1.30); GLOMERULAR FILTRATION RATE > 60.0 (>39); POTASSIUM SERUM 4.5 MEQ/L (3.5-5.1); SODIUM LEVEL 137 MEQ/L (136-145)
== END 2019-10-17 07:55 | disposition home or self-care (01) | DRG 331 ==
LOC: M MS5PR 12:30
PROVIDERS: ADMIT Surgery; ATTEND Surgery
PROC: 0DTF4ZZ Resection of Right Large Intestine, Percutaneous Endoscopic Approach (ICD-10-PCS; principal; 2019-10-14)
PROC: 8E0WXCZ Robotic Assisted Procedure of Trunk Region (ICD-10-PCS; 2019-10-14)
DX: D12.2 Benign neoplasm of ascending colon (principal)

== ENCOUNTER → 2020-01-07 | Outpatient (REF) | payer MEDICARE ==
[~2020-01-07] MED LIST changes: +ACET-897 PO; +AMLO1TAB24 PO; +VITMTA PO
[2020-01-07 17:15] LABS: BASO # 0.1 10^3/uL (0.0-0.2); BASO % 0.6 % (0.0-1.0); EOS # 0.1 10^3/uL (0.0-0.5); EOS % 0.9 % (0.0-3.0); HEMATOCRIT 45.3 % (36.0-47.0); HEMOGLOBIN 14.7 g/dl (12.0-15.5); LYMPH # 2.9 10^3/uL (1.5-5.0); MEAN CORPUSCULAR HEMOGLOBIN 34.9 pg (27.0-33.0); MEAN CORPUSCULAR HGB CONC 32.5 g/dl (32.0-36.5); MEAN CORPUSCULAR VOLUME 107.6 fl (80.0-96.0); MONO # 0.6 10^3/uL (0.0-0.8); MONO % 7.3 % (0.0-5.0); NEUTROPHILS # 4.1 10^3/uL (1.5-8.5); NEUTROPHILS % 52.9 % (36.0-66.0); PLATELET COUNT, AUTOMATED 197 10^3/uL (150-450); RED BLOOD COUNT 4.21 10^6/uL (4.00-5.40); WHITE BLOOD COUNT 7.7 10^3/uL (4.0-10.0)
[2020-01-07 17:45] LABS: ALT/SGPT 25 U/L (12-78); BLOOD UREA NITROGEN 4 MG/DL (7-18); CALCIUM LEVEL 9.2 MG/DL (8.8-10.2); CARBON DIOXIDE LEVEL 27 MEQ/L (21-32); CHLORIDE LEVEL 103 MEQ/L (98-107); CREATININE FOR GFR 0.66 MG/DL (0.55-1.30); GLOMERULAR FILTRATION RATE > 60.0 (>39); GLUCOSE, FASTING 87 MG/DL (70-100); POTASSIUM SERUM 3.6 MEQ/L (3.5-5.1); SODIUM LEVEL 138 MEQ/L (136-145)
[2020-01-07 17:46] LABS: ALBUMIN 2.9 GM/DL (3.2-5.2); BILIRUBIN,TOTAL 0.9 MG/DL (0.2-1.0); FREE T4 1.32 NG/DL (0.76-1.46); THYROID STIMULATING HORMONE 0.859 uIU/ML (0.358-3.740); TOTAL PROTEIN 6.8 GM/DL (6.4-8.2)
== END ==
LOC: M SFHCPLAZ 15:14
PROVIDERS: ATTEND Family Medicine
DX: R55 Syncope and collapse (principal); R53.83 Other fatigue; Z23 Encounter for immunization
CPT/HCPCS: 36415; 80053; 84439; 84443; 85025; 90682; 93005; G0008; G0463

== ENCOUNTER 2020-01-20 00:52 | Inpatient (IN) | payer MEDICARE ==
[~2020-01-20] VITALS: Ht 167.6 cm; Wt 64.9 kg
[~2020-01-20 00:52] MED LIST changes: -ACET-897 PO; -AMLO1TAB24 PO; -VITMTA PO
[2020-01-20] MEDS ORDERED: NS 1,000 ML IV ONE (01:15)
[2020-01-20] MEDS ORDERED: fentaNYL 100 MCG/2 ML INJECTION (J3010) IV ONE (01:30)
[2020-01-20] MEDS ORDERED: ONDANSETRON 4MG/2ML VIAL IV ONE (01:30)
[2020-01-20 01:40] LABS: BASO # 0.1 10^3/uL (0.0-0.2); BASO % 0.6 % (0.0-1.0); HEMATOCRIT 44.2 % (36.0-47.0); HEMOGLOBIN 14.5 g/dl (12.0-15.5); LYMPH # 1.1 10^3/uL (1.5-5.0); LYMPH % 10.4 % (24.0-44.0); MEAN CORPUSCULAR HEMOGLOBIN 34.4 pg (27.0-33.0); MEAN CORPUSCULAR HGB CONC 32.8 g/dl (32.0-36.5); MONO # 0.4 10^3/uL (0.0-0.8); MONO % 4.3 % (0.0-5.0); NEUTROPHILS # 8.7 10^3/uL (1.5-8.5); NEUTROPHILS % 84.3 % (36.0-66.0); PLATELET COUNT, AUTOMATED 205 10^3/uL (150-450); RED BLOOD COUNT 4.21 10^6/uL (4.00-5.40); WHITE BLOOD COUNT 10.3 10^3/uL (4.0-10.0)
[2020-01-20 02:05] LABS: ALT/SGPT 43 U/L (12-78); BILIRUBIN,DIRECT 0.3 MG/DL (0.0-0.2); CK-MB VALUE MASS < 1.0 NG/ML (<3.6); CPK CREATINE PHOSPHOKINASE 58 U/L (26-192); LIPASE 129 U/L (73-393); MB/CK RELATIVE INDEX 1.72 (< OR =4); TOTAL PROTEIN 6.8 GM/DL (6.4-8.2); TROPONIN I < 0.02 NG/ML (< 0.10)
[2020-01-20] MEDS ORDERED: ISOVUE-370 76% 100ML VIAL As Ordered ONE (02:29)
--- NOTE | 2020-01-20 04:03 | REPVR ---
PROCEDURE INFORMATION: Exam: CT Abdomen And Pelvis With Contrast Exam date and time: 01/20/2020 2:38 AM Age: 74 years old Clinical indication: Abdominal pain; Generalized; Additional info: Abd pain, resent hemicolectomy TECHNIQUE: Imaging protocol: Computed tomography of the abdomen and pelvis with intravenous contrast. Radiation optimization: All CT scans at this facility use at least one of these dose optimization techniques: automated exposure control; mA and/or kV adjustment per patient size (includes targeted exams where dose is matched to clinical indication); or iterative reconstruction. Contrast material: ISOVUE 370; Contrast volume: 100 ml; Contrast route: INTRAVENOUS (IV); COMPARISON: CT ABD/PEL W/IV CONTRAST ONLY 08/08/2019 8:54 AM FINDINGS: Lungs: Minimal bibasilar fibro-atelectatic change with minimal right lower lobe infiltrate. Liver: The liver attenuation is 24 Hounsfield units and the spleen is 130 Hounsfield units. Gallbladder and bile ducts: Absent gallbladder. Mild biliary dilation which is attributed to prior cholecystectomy and is likely physiologic. The CBD measures 10 mm with tapering to the ampulla. Pancreas: Normal. No ductal dilation. Spleen: Normal. No splenomegaly. Adrenal glands: Normal. No mass. Kidneys and ureters: Small focal areas of renal parenchymal loss, right greater than left. Stomach and bowel: Partial ascending colectomy with ileocolic anastomosis at the proximal aspect of the hepatic flexure. Question of wall thickening of the distal gastric antrum which may reflect contraction. Antral gastritis is not excluded. There is colonic diverticulosis without evidence of diverticulitis. Appendix: No evidence of appendicitis. Intraperitoneal space: Unremarkable. No free air. No significant fluid collection. Vasculature: There is mild calcification of the abdominal aorta with extension into the iliac arteries. Lymph nodes: Unremarkable. No enlarged lymph nodes. Urinary bladder: Unremarkable as visualized. Reproductive: Status post hysterectomy. Bones/joints: Unremarkable. No acute fracture. Soft tissues: Unremarkable. IMPRESSION: 1. Interval ascending colectomy since 08/08/2019. 2. Minimal bibasilar fibro-atelectatic change with minimal right lower lobe infiltrate which is similar to the prior study. 3. There has been prior cholecystectomy and hysterectomy. 4. Question of some wall thickening of the pre-pyloric gastric antrum which may reflect fortuitous contraction. Antral gastritis is not excluded. 5. Fatty infiltration of the liver. 6. Colonic diverticulosis without diverticulitis. COMMENTS: Consistent with the [employer]'s Incidental Findings Committee white paper (J Am Carmen Radiol 2018): Any incidental renal lesion less than 1 cm or classified as too small to characterize, or any incidental cystic renal lesion characterized as simple-appearing, is likely benign. No follow-up imaging is recommended for these lesions per consensus recommendations based on imaging criteria. Electronically signed by: Jeison Strong On 01/20/2020 04:02:49 AM
[2020-01-20] MEDS ORDERED: VITMTA PO (04:47)
[2020-01-20] MEDS ORDERED: ACET-897 PO (04:47)
[2020-01-20] MEDS ORDERED: MAALOX 30 ML SUSP *UDC PO PRN (05:15)
[2020-01-20] MEDS ORDERED: MOM 30ML SUSPENSION UDC PO PRN (05:15)
[2020-01-20] MEDS ORDERED: ONDANSETRON 4MG/2ML VIAL IV PRN (05:45)
--- NOTE | 2020-01-20 05:51 | HPEPDOC ---
[facility] Medical History & Physical Date of Admission Jan 20, 2020 Date of Service: Jan 20, 2020 Primary Care Physician: AVILA PADILLA MD Attending Physician: SHILPA VARGAS MD History and Physical CHIEF COMPLAINT: Blood in stool, abdominal pain HISTORY OF PRESENT ILLNESS: Patient is a 74-year-old female who presented to the emergency department with a chief complaint of blood in her stool. Patient states that about a day ago she had a large amount of bright red blood in the toilet bowl after a bowel movement. Patient also saw blood on the toilet paper when wiping. Patient states that the next day she noticed less blood but there was still some bright red blood. Patient denies any dark tarry or maroon stools. Patient recently had a hemicolectomy due to a polyp that was found. This polyp ended up being benign. Patient is also complaining some abdominal pain in her left upper quadrant where she says the surgery was done. Patient is also saying that she's been having some difficulty with keeping things down saying that she has vomited a few times. Patient denies any blood in her vomitus. Patient also says that she has had some issues with syncope. 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 Patient says that she got up and went back to her apartment to rest. Patient says is having a few times over the past few weeks and she has seen her primary care provider for this issue. In the emergency department today, patient says she is very anxious about the blood in her stool and the abdominal pain as she is worried that something may be wrong with her surgery. PAST MEDICAL HISTORY: 1. Hyperlipidemia. 2. History of hypertension. 3. GERD. 4. History of ovarian and uterine cancer PAST SURGICAL HISTORY: 1. Hysterectomy. 2. Cholecystectomy. 3. Breast surgery. 4. Right hemicolectomy, pathology showed large tubovillous adenoma, with rare foci of superficial high-grade dysplasia, large lipoma, no invasive carcinoma SOCIAL HISTORY: Patient smokes about a pack of cigarettes a week. She rarely drinks and denies any illicit drug use. Patient lives at home and apartment with her cat. 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 REVIEW OF SYSTEMS: General: Patient denies fevers HEENT: Patient denies headaches Cardiovascular: Patient denies chest pain Respiratory: Patient denies shortness of breath, cough GI: Patient reports abdominal pain, nausea, blood in stool as above. Patient denies constipation or diarrhea : Patient denies increased frequency or pain with urination Extremities: Patient denies swelling or pain in extremities Neurological: Patient denies numbness or tingling in legs Skin: Patient denies any new rashes or lesions. Hematologic: Patient denies any easy bruising. Lymphatic: Patient denies any lumps lumps or bumps in neck, axilla, or groin HOME MEDICATIONS: Please see below. PHYSICAL EXAMINATION: VITAL SIGNS: See below General: Alert and oriented female patient who is laying on the stretcher when I walked into the room. Patient did not appear to be in any acute distress. HEENT: Normocephalic, atraumatic, moist mucous membranes. Neck: No lymphadenopathy or thyromegaly Cardiac: Regular rate and rhythm, 2/6 systolic murmur heard loudest at the second right intercostal space. Pulm: Clear to auscultation bilaterally. No wheezes, rhonchi, rales Abd: Normal bowel sounds, nondistended, tenderness to palpation in all quadrants but worse over the left upper quadrant, voluntary guarding, no rebound tenderness. Rectal: Exterior anal exam was done and showed multiple external hemorrhoids with dry blood around the anal opening. Ext: No edema bilateral lower extremities dorsalis pedis and posterior tibial pulses 2/4 bilaterally. Skin: No evidence of rash or other lesions. LABORATORY DATA: See below. IMAGING: A CT of the abdomen and pelvis performed with IV contrast only on was reported to show interval descending colectomy since 08/08/2019, minimal bibasilar fibro-atelectatic change with minimal right lower lobe infiltrate which is similar to prior study. There is been a prior cholecystectomy and hysterectomy. Question of some wall thickening in the prepyloric gastric antrum which may reflect Marquita was contraction, antral gastritis is not excluded, fatty infiltration of liver, colonic diverticulosis without diverticulitis. MICROBIOLOGY: Please see below. ASSESSMENT: Patient is a 74-year-old female who presented to the hospital with blood in her stool as well as abdominal pain who was found to have external hemorrhoids on exam. . PLAN: 1. GI bleeding. Patient's GI bleeding is bright red blood. Patient's bleeding is most likely secondary to hemorrhoids however, we'll continue to monitor the patient's hemoglobin and hematocrit as time goes on. Patient's hemoglobin is currently 14.5 with hematocrit of 44.2. GI or general surgical consultation can be placed however, because the patient does not appear to have any brisk bleeding colonoscopy and may not be necessary however, since the patient did just have a recent hemicolectomy in October 2019, Gen. surgery may want to be made aware of the patient. At this time, we will give hemorrhoid cream to the patient to help with her symptoms. 2. Hemorrhoids. This is the most likely source of her bleed. We will monitor and treat as above. 3. Anxiety. Patient is very anxious in the room. Explained to the patient that we do not believe her condition is very serious did seem to calm the patient do wn. If necessary, we will treat that at this time I do not believe pharmacological intervention is needed. 4. History hypertension. The patient's blood pressure is elevated in the hospital. I will start the patient on amlodipine with hold parameters to hold the medication with an SBP < 130 5. DVT prophylaxis: Teds and sequentials as the patient currently has a bleed. 6. CODE STATUS: Full code Vital Signs Vital Signs Date Time Temp Pulse Resp B/P (MAP) Pulse Ox O2 Delivery O2 Flow Rate FiO2 01/20/20 05:27 93 94 01/20/20 05:00 165/77 (106) 01/20/20 01:49 20 Room Air 01/20/20 00:54 98.6 Laboratory Data Labs 24H Laboratory Tests 2 01/20/20 01:13: Immature Granulocyte % (Auto) 0.4, Neutrophils (%) (Auto) 84.3H, Lymphocytes (%) (Auto) 10.4L, Monocytes (%) (Auto) 4.3, Eosinophils (%) (Auto) 0.0, Basophils (%) (Auto) 0.6, Neutrophils # (Auto) 8.7H, Lymphocytes # (Auto) 1.1L, Monocytes # (Auto) 0.4, Eosinophils # (Auto) 0.0, Basophils # (Auto) 0.1, Nucleated Red Blood Cells % (auto) 0.0, Total Bilirubin 1.0, Direct Bilirubin 0.3H, Aspartate Amino Transf (AST/SGOT) 100H, Alanine Aminotransferase (ALT/SGPT) 43, Alkaline Phosphatase 129H, Total Creatine Kinase 58, Creatine Kinase MB < 1.0, Creatine Kinase MB Relative Index 1.72, Troponin I < 0.02, Total Protein 6.8, Albumin 3.0L, Albumin/Globulin Ratio 0.8L, Lipase 129 01/20/20 01:19: POC Glucose (Misc Panel) 148H, POC Sodium (Misc Panel) 137, POC Potassium (Misc Panel) 3.9, POC Chloride (Misc Panel) 101, POC Total CO2 (Misc Panel) 23.0, POC Blood Urea Nitrogen (Misc Panel 4L, POC Ionized Calcium (Misc Panel) 4.2L, POC Creatinine (Misc Panel) 0.6, POC Hematocrit (Misc Panel) 48.0 01/20/20 05:24: CBC/BMP Laboratory Tests 01/20/20 01:13 Home Medications Scheduled Amlodipine Besylate (Amlodipine Besylate) 5 Mg Tablet, 5 MG PO DAILY Multivitamins (Thera M Plus Tablet) 1 Each Tablet, 1 TAB PO DAILY Scheduled PRN Acetaminophen (Tylenol Extra Strength) 500 Mg Tablet, 1,000 MG PO Q6H PRN for PAIN Allergies Coded Allergies: bee pollen (Verified Allergy, Severe, stops breathing, 09/30/19) codeine (Verified Allergy, Severe, stopped breathing , 09/30/19) morphine (Verified Allergy, Severe, stopped breathing, 09/30/19) oxycodone (Verified Allergy, Severe, stopped breathing, 09/30/19) atorvastatin (Verified Allergy, Intermediate, hives, 01/20/20) A-FIB/CHADSVASC A-FIB History Current/History of A-Fib/PAF?: No GME ATTESTATION GME ATTESTATION My faculty preceptor for this patient encounter was physically present during the encounter and was fully available. All aspects of the patient interview, examination, medical decision making process, and medical care plan development were reviewed and approved by the faculty preceptor. The faculty preceptor is aware and concurs with the plan as stated in the body of this note and will attest to such by his/her cosignature. ATTENDING NOTE I, A Yousef, have independently examined this patient and performed my own physical exam, as well as reviewed the documentation and edited where necessary. I have discussed in detail with the resident / student the findings and plan of treatment as documented by the resident / student and edited their note. I agree with their findings and treatment plan and have edited their documentation. I will continue to follow the patient during this hospital stay. LYNETTE HORNE DO Jan 20, 2020 05:51 SHILPA VARGAS MD Jan 27, 2020 05:14
[2020-01-20] MEDS ORDERED: PREPARATION H OINTMENT (HEMORRHOID) PR PRN (06:00)
[2020-01-20] MEDS: amLODIPine 5 MG TAB PO SCH (07:19)
[2020-01-20] MEDS: HYDROMORPHONE HCL 0.5 MG/ 0.5 ML SYRINGE (J1170 PER 1) IV PRN ×2 (07:24→16:10)
[2020-01-20] MEDS ORDERED: PROCHLORPERAZINE 10MG/2ML VIAL (J0780 PER 1) IV PRN (08:15)
[2020-01-20] MEDS: MULTIVITAMINS/MINERALS THERAP 1 TAB PO SCH (09:00)
--- NOTE | 2020-01-20 09:10 | ECGEPIP ---
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
[2020-01-20 10:47] LABS: HEMATOCRIT 39.4 % (36.0-47.0); HEMOGLOBIN 13.1 g/dl (12.0-15.5); MEAN CORPUSCULAR HEMOGLOBIN 34.9 pg (27.0-33.0); MEAN CORPUSCULAR HGB CONC 33.2 g/dl (32.0-36.5); MEAN CORPUSCULAR VOLUME 105.1 fl (80.0-96.0); PLATELET COUNT, AUTOMATED 169 10^3/uL (150-450); RED BLOOD COUNT 3.75 10^6/uL (4.00-5.40)
[2020-01-20 10:52] LABS: BLOOD UREA NITROGEN 6 MG/DL (7-18); CALCIUM LEVEL 8.6 MG/DL (8.8-10.2); CARBON DIOXIDE LEVEL 29 MEQ/L (21-32); CHLORIDE LEVEL 104 MEQ/L (98-107); CREATININE FOR GFR 0.67 MG/DL (0.55-1.30); GLOMERULAR FILTRATION RATE > 60.0 (>39); GLUCOSE, FASTING 133 MG/DL (70-100); MAGNESIUM LEVEL 1.8 MG/DL (1.8-2.4); POTASSIUM SERUM 3.9 MEQ/L (3.5-5.1); SODIUM LEVEL 140 MEQ/L (136-145)
[2020-01-20 12:43] LABS: HEMATOCRIT 36.9 % (36.0-47.0); HEMOGLOBIN 12.4 g/dl (12.0-15.5); MEAN CORPUSCULAR HEMOGLOBIN 35.3 pg (27.0-33.0); MEAN CORPUSCULAR HGB CONC 33.6 g/dl (32.0-36.5); MEAN CORPUSCULAR VOLUME 105.1 fl (80.0-96.0); PLATELET COUNT, AUTOMATED 163 10^3/uL (150-450); RED BLOOD COUNT 3.51 10^6/uL (4.00-5.40); WHITE BLOOD COUNT 7.4 10^3/uL (4.0-10.0)
[2020-01-20 14:45] VITALS: BP 98/47
[2020-01-20 15:15] VITALS: BP_SYST 115; BP_SYST 117; BP_SYST 98; BP_DIAS 47; BP_DIAS 64; BP_DIAS 66
[2020-01-20] MEDS: ONDANSETRON 4MG/2ML VIAL IV PRN (16:10)
[2020-01-20 18:11] LABS: HEMATOCRIT 37.2 % (36.0-47.0); HEMOGLOBIN 12.5 g/dl (12.0-15.5); MEAN CORPUSCULAR HEMOGLOBIN 35.4 pg (27.0-33.0); MEAN CORPUSCULAR HGB CONC 33.6 g/dl (32.0-36.5); MEAN CORPUSCULAR VOLUME 105.4 fl (80.0-96.0); PLATELET COUNT, AUTOMATED 159 10^3/uL (150-450); RED BLOOD COUNT 3.53 10^6/uL (4.00-5.40); WHITE BLOOD COUNT 7.9 10^3/uL (4.0-10.0)
[2020-01-20 22:00] VITALS: BP 117/63
[2020-01-21] VITALS (7 sets, daily range): BP systolic 111–148; BP diastolic 58–111
[2020-01-21] MEDS: ACETAMINOPHEN TAB 650MG DOSE (2X325MG) PO PRN ×3 (02:03→19:34)
[2020-01-21] MEDS: ONDANSETRON 4MG/2ML VIAL IV PRN (02:46)
[2020-01-21 06:14] LABS: HEMATOCRIT 34.6 % (36.0-47.0); HEMOGLOBIN 11.4 g/dl (12.0-15.5); MEAN CORPUSCULAR HEMOGLOBIN 35.3 pg (27.0-33.0); MEAN CORPUSCULAR HGB CONC 32.9 g/dl (32.0-36.5); MEAN CORPUSCULAR VOLUME 107.1 fl (80.0-96.0); PLATELET COUNT, AUTOMATED 139 10^3/uL (150-450); RED BLOOD COUNT 3.23 10^6/uL (4.00-5.40)
[2020-01-21 06:31] LABS: BLOOD UREA NITROGEN 7 MG/DL (7-18); CARBON DIOXIDE LEVEL 29 MEQ/L (21-32); CHLORIDE LEVEL 103 MEQ/L (98-107); CREATININE FOR GFR 0.52 MG/DL (0.55-1.30); GLOMERULAR FILTRATION RATE > 60.0 (>39); GLUCOSE, FASTING 69 MG/DL (70-100); MAGNESIUM LEVEL 1.8 MG/DL (1.8-2.4); POTASSIUM SERUM 3.2 MEQ/L (3.5-5.1); SODIUM LEVEL 139 MEQ/L (136-145)
[2020-01-21] MEDS: MULTIVITAMINS/MINERALS THERAP 1 TAB PO SCH (08:35)
[2020-01-21] MEDS: amLODIPine 5 MG TAB PO SCH (08:36)
[2020-01-21] MEDS: POTASSIUM CHLORIDE 10 MEQ SR TABLET PO SCH (08:36)
--- NOTE | 2020-01-21 13:12 | IPNPDOC ---
Text Note Date of Service The patient was seen on 01/21/20. NOTE SUBJECTIVE: No further bleeding per rectum in hospital , No nausea or abdominal pain. However she does still have severe dizziness and light headedness on standing up and felt this morning that she was going to pass out on standing up. Her orthostatic vitals were negative. PHYSICAL EXAMINATION: VITAL SIGNS: See below General: Alert and oriented female patient who is laying on the stretcher when I walked into the room. Patient did not appear to be in any acute distress. HEENT: Normocephalic, atraumatic, moist mucous membranes. Neck: No lymphadenopathy or thyromegaly Cardiac: Regular rate and rhythm, 3/6 systolic murmur heard loudest at the second right intercostal space. Pulm: Clear to auscultation bilaterally. No wheezes, rhonchi, rales Abd: Normal bowel sounds, nondistended, tenderness to palpation in all quadrants but worse over the left upper quadrant, voluntary guarding, no rebound tenderness. Rectal: Exterior anal exam was done and showed multiple external hemorrhoids with dry blood around the anal opening. Ext: No edema bilateral lower extremities dorsalis pedis and posterior tibial pulses 2/4 bilaterally. Skin: No evidence of rash or other lesions. LABORATORY DATA: See below. IMAGING: A CT of the abdomen and pelvis performed with IV contrast only on 01/20/2020 was reported to show interval descending colectomy since 08/08/2019, minimal bibasilar fibro-atelectatic change with minimal right lower lobe infiltrate which is similar to prior study. There has been a prior cholecystectomy and hysterectomy. Question of some wall thickening in the p repyloric gastric antrum which may reflect contraction, antral gastritis is not excluded, fatty infiltration of liver, colonic diverticulosis without diverticulitis. MICROBIOLOGY: Please see below. ASSESSMENT: Patient is a 74-year-old female who presented to the hospital with blood in her stool as well as abdominal pain, vomiting for 3 days which culminated into severe dizziness and fall. SHe denied any loss of consciousness. She was found to have external hemorrhoids on exam. Dizziness and fall orthostatic hypotension Vs Vasovagal Vs cardiac will check orthostatic vitals PT eval for vestibular function. GI bleeding. bleeding is most likely secondary to hemorrhoids colonoscopy may not be necessary since the patient did just have a recent hemicolectomy in October 2019. we will give hemorrhoid cream to the patient to help with her symptoms. Acute gastritis pantoprazole and sucralfate helping Anxiety Hypertension. amlodipne DVT prophylaxis: Teds and sequentials as the patient currently has a bleed. CODE STATUS: Full code VS,Fishbone, I+O VS, Fishbone, I+O Laboratory Tests 01/20/20 17:50 01/21/20 05:31 Vital Signs Date Time Temp Pulse Resp B/P (MAP) Pulse Ox O2 Delivery O2 Flow Rate FiO2 01/21/20 08:36 79 152/58 01/21/20 06:00 98.8 18 92 Room Air I&O- Last 24 Hours up to 6 AM 01/21/20 06:00 Intake Total 240 ml Output Total 500 ml Balance -260 ml ALONDRA HARPER MD Jan 21, 2020 13:12
[2020-01-21] MEDS ORDERED: SODIUM CHLORIDE 0.9% 1000ML IV ONE (13:45)
[2020-01-21 18:20] LABS: HEMATOCRIT 36.4 % (36.0-47.0); HEMOGLOBIN 11.9 g/dl (12.0-15.5); MEAN CORPUSCULAR HEMOGLOBIN 35.1 pg (27.0-33.0); MEAN CORPUSCULAR HGB CONC 32.7 g/dl (32.0-36.5); MEAN CORPUSCULAR VOLUME 107.4 fl (80.0-96.0); PLATELET COUNT, AUTOMATED 132 10^3/uL (150-450); RED BLOOD COUNT 3.39 10^6/uL (4.00-5.40); WHITE BLOOD COUNT 5.5 10^3/uL (4.0-10.0)
[2020-01-22 06:00] VITALS: BP 159/72
[2020-01-22 06:10] VITALS: BP_SYST 118; BP_SYST 136; BP_SYST 152; BP_DIAS 51; BP_DIAS 67; BP_DIAS 70
[2020-01-22 06:32] LABS: BLOOD UREA NITROGEN 5 MG/DL (7-18); CARBON DIOXIDE LEVEL 29 MEQ/L (21-32); CHLORIDE LEVEL 100 MEQ/L (98-107); CREATININE FOR GFR 0.54 MG/DL (0.55-1.30); GLOMERULAR FILTRATION RATE > 60.0 (>39); GLUCOSE, FASTING 89 MG/DL (70-100); MAGNESIUM LEVEL 1.8 MG/DL (1.8-2.4); POTASSIUM SERUM 3.2 MEQ/L (3.5-5.1); SODIUM LEVEL 137 MEQ/L (136-145)
[2020-01-22] MEDS: ACETAMINOPHEN TAB 650MG DOSE (2X325MG) PO PRN ×2 (08:38→19:36)
[2020-01-22] MEDS: MULTIVITAMINS/MINERALS THERAP 1 TAB PO SCH (08:38)
[2020-01-22] MEDS: POTASSIUM CHLORIDE 10 MEQ SR TABLET PO SCH (08:38)
[2020-01-22] MEDS: amLODIPine 5 MG TAB PO SCH (08:39)
--- NOTE | 2020-01-22 09:18 | REP ---
INDICATION: fall hit head 1 week ago/RIBERA. COMPARISON: None. TECHNIQUE: Axial soft tissue and bone windows with coronal reconstructions. FINDINGS: Lateral ventricles are midline symmetric and mildly dilated. This is in proportion to the diffuse cerebral atrophy which is greatest in the frontal and temporal lobes. Third and 4th ventricles were also proportional in their size to the diffuse atrophy. There are fairly extensive periventricular low-density white matter changes in the cerebral hemispheres bilaterally. This represents small-vessel white matter ischemic change. There is no vascular territory infarct, intracranial hemorrhage, mass or mass effect. The brainstem is unremarkable and the cerebellum shows atrophy. No posterior fossa mass or hemorrhage. The skull base bone windows show mastoids and visualized sinuses well aerated. There is no fracture or focal bone lesion of the skull base or calvarium. Some mild atherosclerotic calcifications in the carotid siphons. IMPRESSION: 1. Cerebral atrophy and ventriculomegaly in proportion, [id number] severity. 2. Fairly extensive small vessel white matter ischemic change. 3. No intracranial hemorrhage, acute infarct, mass, mass effect or edema. 4. The skull base and calvarium show no fracture or focal lesion. <Electronically signed by Cruz Rodriguez > 01/22/20 0901
[2020-01-22 13:32] VITALS: BP 125/68
--- NOTE | 2020-01-22 13:55 | IPNPDOC ---
Text Note Date of Service The patient was seen on 01/22/20. NOTE SUBJECTIVE: No further bleeding per rectum in hospital , No nausea or abdominal pain. However she does still have severe dizziness and light headedness on standing up and felt this morning that she was going to pass out on standing up. Her orthostatic vitals were negative at 3 mins. Today she also says that she passed out and fell 2 weeks ago and hit her head. and since then she has been having a constant headache. She likes to keep her lights inthe room off. She says her eyes are very sensitive to light since childhood. This time during admission also she had passed out . PHYSICAL EXAMINATION: VITAL SIGNS: See below General: Alert and oriented female patient who is laying on the stretcher when I walked into the room. Patient did not appear to be in any acute distress. HEENT: Normocephalic, atraumatic, moist mucous membranes. Neck: No lymphadenopathy or thyromegaly Cardiac: Regular rate and rhythm, 3/6 systolic murmur heard loudest at the second right intercostal space. Pulm: Clear to auscultation bilaterally. No wheezes, rhonchi, rales Abd: Normal bowel sounds, nondistended, tenderness to palpation in all quadrants but worse over the left upper quadrant, voluntary guarding, no rebound tenderness. Rectal: Exterior anal exam was done and showed multiple external hemorrhoids with dry blood around the anal opening. Ext: No edema bilateral lower extremities dorsalis pedis and posterior tibial pulses 2/4 bilaterally. Skin: No evidence of rash or other lesions. LABORATORY DATA: See below. IMAGING: A CT of the abdomen and pelvis performed with IV contrast only on 01/20/2020 was reported to show interval descending colectomy since 08/08/2019, minimal bibasilar fibro-atelectatic change with minimal right lower lobe infiltrate which is similar to prior study. There has been a prior cholecystectomy and hysterectomy. Question of some wall thickening in the prepyloric gastric antrum which may reflect contraction, antral gastritis is not excluded, fatty infiltration of liver, colonic diverticulosis without diverticulitis. MICROBIOLOGY: Please see below. ASSESSMENT: Patient is a 74-year-old female who presented to the hospital with blood in her stool as well as abdominal pain, vomiting for 3 days. Then she had an episode of dizziness and fall. Patient reports today that she had passed out for 10 mins . She was found on the floor of the elevator by her neighbors son who is autistic. She was helped up to her apartment. She did have another fall 2 weeks ago when she reported that she had passed out for several minutes. She unsure about any loss of consciousness. She was found to have external hemorrhoids on exam. Syncope/ Dizziness and fall orthostatic hypotension Vs Vasovagal Vs cardiac will check orthostatic vitals at 1 min, 3 min and 5 mins She did have positive orthostats on the day of admission but after that has been negative PT eval for vestibular function was negative for any vestibular abnormality will order telemetry, Carotid US Had Echo in september 2019 with no major structural abnormality. GI bleeding. 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 we will give hemorrhoid cream to the patient to help with her symptoms. H/o dysphagia/ GERD/ Acute gastritis. continue PPI, sucralfate has been referred to Dr Cabezas from PMD Anxiety Hypertension amlodipine HLD could not tolerate statins H/o Uterine and cervical cancer in 1977 DVT prophylaxis: Teds and sequentials as the patient currently has a bleed. CODE STATUS: Full code VS,Fishbone, I+O VS, Fishbone, I+O Laboratory Tests 01/21/20 17:39 01/22/20 05:24 Vital Signs Date Time Temp Pulse Resp B/P (MAP) Pulse Ox O2 Delivery O2 Flow Rate FiO2 01/22/20 13:32 96.4 72 16 125/68 (87) 90 Room Air I&O- Last 24 Hours up to 6 AM 01/22/20 06:00 Intake Total 1120 ml Output Total 1101 ml Balance 19 ml ALONDRA HARPER MD Jan 22, 2020 13:55
--- NOTE | 2020-01-22 16:47 | REP ---
INDICATION: syncope COMPARISON: None. TECHNIQUE: Real-time ultrasound evaluation and duplex Doppler interrogation of the extracranial carotid vasculature is performed. FINDINGS: There is mild plaquing and narrowing in both carotid bulbs extending into the internal and external carotid arteries. Luminal narrowing is less than 50%. There is no evidence of hemodynamically significant stenosis of either internal carotid artery. Normal flow velocities are seen. The vertebral arteries demonstrate normal direction of flow. RIGHT LEFT Peak systolic velocity ICA 84.4 cm/s 85.2 cm/s End diastolic velocity ICA 20 cm/s 23.3 cm/s Peak systolic velocity CCA 130.2 cm/s 98.6cm/s Peak systolic velocity ECA 102 cm/s 75.4 cm/s ICA/CCA ratio 0.65 0.86 IMPRESSION: Bilateral luminal narrowing of the internal carotid arteries less than 50%. No evidence of hemodynamically significant stenosis. Cranial direction of flow in both vertebral arteries. <Electronically signed by Cruz Rodriguez > 01/22/20 [id number]
[2020-01-22 22:00] VITALS: BP 104/68
[2020-01-22 23:40] VITALS: BP_SYST 127; BP_SYST 134; BP_SYST 143; BP_DIAS 64; BP_DIAS 70
[2020-01-23] MEDS: ACETAMINOPHEN TAB 650MG DOSE (2X325MG) PO PRN ×2 (00:21→09:08)
[2020-01-23 06:00] VITALS: BP 148/68
[2020-01-23 06:29] LABS: BLOOD UREA NITROGEN 4 MG/DL (7-18); CALCIUM LEVEL 8.3 MG/DL (8.8-10.2); CARBON DIOXIDE LEVEL 32 MEQ/L (21-32); CHLORIDE LEVEL 102 MEQ/L (98-107); CREATININE FOR GFR 0.54 MG/DL (0.55-1.30); GLOMERULAR FILTRATION RATE > 60.0 (>39); GLUCOSE, FASTING 92 MG/DL (70-100); MAGNESIUM LEVEL 1.8 MG/DL (1.8-2.4); SODIUM LEVEL 139 MEQ/L (136-145)
[2020-01-23] MEDS ORDERED: POTASSIUM CHLORIDE 10 MEQ SR TABLET PO SCH (09:00)
[2020-01-23] MEDS: MULTIVITAMINS/MINERALS THERAP 1 TAB PO SCH (09:07)
[2020-01-23 09:08] VITALS: BP 159/84
[2020-01-23] MEDS: amLODIPine 5 MG TAB PO SCH (09:08)
[2020-01-23] MEDS ORDERED: AMLO1TAB24 PO (10:28)
--- NOTE | 2020-01-23 13:56 | DS ---
DATE OF ADMISSION: 01/20/2020 DATE OF DISCHARGE: 01/23/2020 PRINCIPAL DIAGNOSIS: Syncope secondary to orthostatic hypotension versus vasovagal episodes. SECONDARY DIAGNOSES: * Chronic mild dizziness. * Lower GI bleeding secondary to hemorrhoids. * History of anxiety. * Hypertensive heart disease. * Hyperlipidemia; intolerant to STATINS. PRIMARY CARE PROVIDER: Robyn Owen MD. HISTORY: Patient was admitted after having abdominal pain, blood in her stool, dizziness and a fall. She had some orthostatic hypotension on admission so she was admitted. HOSPITAL COURSE: Patient admitted to a telemetry bed. She had no significant arrhythmias during the course of her hospitalization. After hydration her orthostatic hypotension resolved. She is still mildly symptomatic with dizziness that is probably vestibular. This morning she had an orthostatic drop of her blood pressure so she still feels a little dizzy when she is upright. She tells me this after I observed her walking in the room and in the doorway several times during my rounds without any symptoms. She is anxious and I think this is contributing as well. She had some lower GI bleeding that was attributed to hemorrhoids. She has had a recent endoscopy so this was not pursued further. I think she is safe for discharge and she has been cleared by physical therapy. She had a vestibular evaluation by physical therapy during this admission and not felt to have significant vestibular abnormality. Consideration could be given to follow up with the [facility] who deals with dizziness problems. PHYSICAL EXAMINATION ON DISCHARGE: On day of discharge she is resting comfortably. No orthostatic fall of her blood pressure. Vital signs are stable. HEENT: There is no nystagmus. Lungs: Clear. Neck: There is no JVD. Heart: Rhythm regular, 1/6 systolic ejection murmur. Abdomen: Soft, nontender, no masses. Extremities: Trace peripheral edema. LABORATORY DATA: White count 5.5, hemoglobin 11.9 which is stable, platelets 132. Sodium 139, potassium 3 [some potassium given before discharge], BUN 4, creatinine 0.5, glucose 92. COVID test was negative. IMAGING: Carotid ultrasound showed no significant stenosis. Echocardiogram is pending. CT of the abdomen and pelvis showed no actionable findings; fatty liver was noted. Head CT showed cerebral atrophy mild to moderate in severity, small vessel disease. DISPOSITION: Discharged home in improved and stable condition. FOLLOW UP: She will follow up with Dr. Owen her primary care provider in a week. DISCHARGE INSTRUCTIONS: * Activity is as tolerated. * No added salt diet recommended. DISCHARGE MEDICATIONS: * Amlodipine 5 mg daily. Continue her home medications: * Tylenol * Multivitamin. MTDD
== END 2020-01-23 11:52 | disposition home or self-care (01) | DRG 312 ==
LOC: M ED 00:52 → M ED INP 04:57 → ENRESERV 14:40 → M MSPAV 14:42
PROVIDERS: ADMIT Family Medicine; ATTEND Family Medicine
DX: I95.1 Orthostatic hypotension (principal); K92.1 Melena; E78.5 Hyperlipidemia, unspecified; I10 Essential (primary) hypertension; K21.9 Gastro-esophageal reflux disease without esophagitis; Z85.42 Personal history of malignant neoplasm of other parts of uterus; F41.9 Anxiety disorder, unspecified; K64.4 Residual hemorrhoidal skin tags; F17.210 Nicotine dependence, cigarettes, uncomplicated; R42 Dizziness and giddiness; Z85.43 Personal history of malignant neoplasm of ovary; Z90.49 Acquired absence of other specified parts of digestive tract; Z88.5 Allergy status to narcotic agent; Z88.8 Allergy status to other drugs, medicaments and biological substances; Z91.030 Bee allergy status; Z20.828 Contact with and (suspected) exposure to other viral communicable diseases

== ENCOUNTER → 2020-02-02 | Outpatient (REF) | payer MEDICARE ==
[~2020-02-02] MED LIST changes: +ACET-897 PO; +AMLO1TAB24 PO; +VITMTA PO
[2020-02-02 13:44] LABS: BASO # 0.1 10^3/uL (0.0-0.2); BASO % 1.1 % (0.0-1.0); EOS # 0.1 10^3/uL (0.0-0.5); EOS % 1.6 % (0.0-3.0); HEMOGLOBIN 14.5 g/dl (12.0-15.5); LYMPH # 3.3 10^3/uL (1.5-5.0); LYMPH % 44.6 % (24.0-44.0); MEAN CORPUSCULAR HEMOGLOBIN 35.5 pg (27.0-33.0); MEAN CORPUSCULAR VOLUME 107.6 fl (80.0-96.0); MONO # 0.6 10^3/uL (0.0-0.8); MONO % 8.4 % (0.0-5.0); NEUTROPHILS # 3.3 10^3/uL (1.5-8.5); PLATELET COUNT, AUTOMATED 339 10^3/uL (150-450); RED BLOOD COUNT 4.09 10^6/uL (4.00-5.40); WHITE BLOOD COUNT 7.5 10^3/uL (4.0-10.0)
[2020-02-02 15:26] LABS: ALBUMIN 2.8 GM/DL (3.2-5.2); ALT/SGPT 23 U/L (12-78); BILIRUBIN,TOTAL 0.3 MG/DL (0.2-1.0); BLOOD UREA NITROGEN 3 MG/DL (7-18); CALCIUM LEVEL 9.2 MG/DL (8.8-10.2); CARBON DIOXIDE LEVEL 25 MEQ/L (21-32); CHLORIDE LEVEL 104 MEQ/L (98-107); CREATININE FOR GFR 0.58 MG/DL (0.55-1.30); FERRITIN 130 NG/ML (8-252); GLOMERULAR FILTRATION RATE > 60.0 (>39); GLUCOSE, FASTING 90 MG/DL (70-100); IRON (FE) 112 UG/DL (50-170); MAGNESIUM LEVEL 2.1 MG/DL (1.8-2.4); POTASSIUM SERUM 4.2 MEQ/L (3.5-5.1); SODIUM LEVEL 137 MEQ/L (136-145); TOTAL PROTEIN 6.5 GM/DL (6.4-8.2)
== END ==
LOC: M SFHCPLAZ 10:51
PROVIDERS: ATTEND Physician Assistant Medical
DX: K92.2 Gastrointestinal hemorrhage, unspecified (principal)
CPT/HCPCS: 36415; 80053; 82728; 83540; 83735; 85025; 99495; G0463

== ENCOUNTER → 2020-04-08 | Outpatient (REF) | payer MEDICARE ==
[2020-04-08 13:42] LABS: HEMATOCRIT 44.7 % (36.0-47.0); HEMOGLOBIN 14.6 g/dl (12.0-15.5); MEAN CORPUSCULAR HEMOGLOBIN 34.4 pg (27.0-33.0); MEAN CORPUSCULAR HGB CONC 32.7 g/dl (32.0-36.5); MEAN CORPUSCULAR VOLUME 105.4 fl (80.0-96.0); PLATELET COUNT, AUTOMATED 245 10^3/uL (150-450); RED BLOOD COUNT 4.24 10^6/uL (4.00-5.40); WHITE BLOOD COUNT 8.5 10^3/uL (4.0-10.0)
[2020-04-08 13:51] LABS: HEMATOCRIT 44.2 % (36.0-47.0)
== END ==
LOC: M SFHCPLAZ 08:24
PROVIDERS: ATTEND Family Medicine
DX: D75.89 Other specified diseases of blood and blood-forming organs (principal)
CPT/HCPCS: 36415; 82607; 82747; 85027; G0463

== ENCOUNTER → 2020-04-19 | Outpatient (REF) | payer MEDICARE ==
[~2020-04-19] MED LIST changes: -LISI-538 PO; +LISI20TA33 PO
== END ==
LOC: M PLALAB 13:22
PROVIDERS: ATTEND Family Medicine
DX: D75.89 Other specified diseases of blood and blood-forming organs (principal)

== ENCOUNTER → 2020-04-27 | Outpatient (CLI) | payer MEDICARE ==
--- NOTE | 2020-04-27 12:50 | DEXAMM ---
INDICATION: [age] AGE REL OSTEOPOROSIS W/O FX. COMPARISON: None. TECHNIQUE: Bone density was measured using dual-energy x-ray absorptionmetry (DEXA). FINDINGS: AP SPINE L1-L4 BMD 0.813 g/cm2 Young Adult T-Score -3.1 Age Matched Z-Score -1.3. LT FEMUR, TOTAL BMD 0.670 g/cm2 Young Adult T-Score -2.7 Age Matched Z-Score -0.9. LT NECK BMD 0.768 g/cm2 Young Adult T-Score -1.9 Age Matched Z-Score 0.0. RT FEMUR, TOTAL BMD 0.683 g/cm2 Young Adult T-Score -2.6 Age Matched Z-Score -0.8. RT NECK BMD 0.776 g/cm2 Young Adult T-Score -1.9 Age Matched Z-Score 0.1. IMPRESSION: There is osteoporosis of the spine. There is osteoporosis of the left hip. There is osteoporosis of the right hip. FOLLOW-UP: Recommendation for the next bone density exam: 2 years. <Electronically signed by Rafael Devine > 04/27/20 [id number]
== END ==
LOC: M WHC 11:02
PROVIDERS: ATTEND Family Medicine
DX: M81.0 Age-related osteoporosis without current pathological fracture (principal)

== ENCOUNTER 2020-06-29 13:14 | Outpatient (CLI) | payer MEDICARE, OTHER ==
[~2020-06-29] VITALS: Ht 162.6 cm; Wt 62.7 kg
[~2020-06-29 13:14] MED LIST changes: +AMLO25TA PO; +ZOLEDRONIC ACID 5 MG in IV 1 EA IV ONE
[2020-06-29 13:15] VITALS: BP 167/68
[2020-06-29 14:20] VITALS: BP 149/70
== END 2020-06-29 14:20 | disposition home or self-care (01) ==
LOC: M INFU 13:14
PROVIDERS: ATTEND Family Medicine
DX: M81.0 Age-related osteoporosis without current pathological fracture (principal); Z88.5 Allergy status to narcotic agent; Z88.6 Allergy status to analgesic agent; Z88.8 Allergy status to other drugs, medicaments and biological substances
CPT/HCPCS: 96365; J3489

== ENCOUNTER → 2020-07-20 | Outpatient (REF) | payer MEDICARE, OTHER ==
[~2020-07-20] MED LIST changes: -ZOLEDRONIC ACID 5 MG in IV 1 EA IV ONE
[2020-07-20 10:41] LABS: BASO # 0.1 10^3/uL (0.0-0.2); BASO % 0.6 % (0.0-1.0); EOS # 0.1 10^3/uL (0.0-0.5); EOS % 0.7 % (0.0-3.0); HEMATOCRIT 43.4 % (36.0-47.0); HEMOGLOBIN 14.3 g/dl (12.0-15.5); LYMPH # 2.3 10^3/uL (1.5-5.0); MEAN CORPUSCULAR HEMOGLOBIN 34.8 pg (27.0-33.0); MEAN CORPUSCULAR HGB CONC 32.9 g/dl (32.0-36.5); MEAN CORPUSCULAR VOLUME 105.6 fl (80.0-96.0); MONO # 0.6 10^3/uL (0.0-0.8); MONO % 7.2 % (2.0-8.0); NEUTROPHILS # 5.7 10^3/uL (1.5-8.5); NEUTROPHILS % 65.2 % (36.0-66.0); PLATELET COUNT, AUTOMATED 308 10^3/uL (150-450); RED BLOOD COUNT 4.11 10^6/uL (4.00-5.40); WHITE BLOOD COUNT 8.7 10^3/uL (4.0-10.0)
[2020-07-20 10:52] LABS: INR 0.85; PROTHROMBIN TIME 11.8 SECONDS (12.5-14.3)
[2020-07-20 10:53] LABS: PARTIAL THROMBOPLASTIN TIME 29.7 SECONDS (24.2-38.5)
[2020-07-20 11:04] LABS: ERYTHROCYTE SEDIMENTATION RATE 22 mm/hr (0-30)
[2020-07-20 11:13] LABS: ALBUMIN 2.7 GM/DL (3.2-5.2); ALT/SGPT 20 U/L (12-78); BILIRUBIN,TOTAL 0.5 MG/DL (0.2-1.0); BLOOD UREA NITROGEN 5 MG/DL (7-18); C REACTIVE PROTEIN QUANTITATIV 0.55 MG/DL (0.00-0.30); CARBON DIOXIDE LEVEL 29 MEQ/L (21-32); CHLORIDE LEVEL 102 MEQ/L (98-107); CREATININE FOR GFR 0.52 MG/DL (0.55-1.30); GLOMERULAR FILTRATION RATE > 60.0 (>39); GLUCOSE, FASTING 89 MG/DL (70-100); POTASSIUM SERUM 3.9 MEQ/L (3.5-5.1); RHEUMATOID FACTOR QUANT < 10.0 IU/ML (<15.0); SODIUM LEVEL 137 MEQ/L (136-145); TOTAL PROTEIN 6.4 GM/DL (6.4-8.2)
[2020-07-20 11:18] LABS: TOTAL 25(OH) VITAMIN D 10.8 NG/ML (30.0-100.0)
[2020-07-21 23:10] LABS: ANTI DOUBLE STRAND-DNA AB 16 IU/mL (0-9); ANTINUCLEAR ANTIBODIES DIRECT Positive (Negative); CYCLIC CITRULLINATED PEPTIDE 5 units (0-19); RNP ANTIBODIES 1.4 AI (0.0-0.9); SJOGREN'S ANTI SS-A <0.2 AI (0.0-0.9); SJOGREN'S ANTI SS-B 0.7 AI (0.0-0.9); SMITH ANTIBODIES <0.2 AI (0.0-0.9)
== END ==
LOC: M PLALAB 08:04
PROVIDERS: ATTEND Family Medicine
DX: M25.50 Pain in unspecified joint (principal); R23.8 Other skin changes; E55.9 Vitamin D deficiency, unspecified
CPT/HCPCS: 36415; 80053; 82306; 85025; 85610; 85652; 85730; 86038; 86140; 86200; 86431; G0463

== ENCOUNTER 2020-12-27 08:39 | Observation (INO) | payer MEDICARE, OTHER ==
[~2020-12-27] VITALS: Ht 162.6 cm; Wt 59.1 kg
[2020-12-27 09:18] LABS: BASO % 0.6 % (0.0-1.0); EOS % 0.6 % (0.0-3.0); HEMATOCRIT 38.3 % (36.0-47.0); HEMOGLOBIN 13.1 g/dl (12.0-15.5); LYMPH # 1.7 10^3/uL (1.5-5.0); LYMPH % 24.2 % (24.0-44.0); MEAN CORPUSCULAR HEMOGLOBIN 35.1 pg (27.0-33.0); MEAN CORPUSCULAR HGB CONC 34.2 g/dl (32.0-36.5); MEAN CORPUSCULAR VOLUME 102.7 fl (80.0-96.0); MONO # 0.6 10^3/uL (0.0-0.8); NEUTROPHILS # 4.6 10^3/uL (1.5-8.5); NEUTROPHILS % 65.3 % (36.0-66.0); PLATELET COUNT, AUTOMATED 174 10^3/uL (150-450); RED BLOOD COUNT 3.73 10^6/uL (4.00-5.40); WHITE BLOOD COUNT 7.1 10^3/uL (4.0-10.0)
--- OUTSIDE RECORDS SUMMARY | 2020-12-27 09:44 | CCD ---
Author Author [facility] Organization [facility] Address Unknown Phone Unavailable Care Team Providers Care Wax Pattern Repairer Name Role Phone DEREK, CLEOPATRA FARR Unavailable Unavailable REINDL, CLEOPATRA FARR Unavailable Unavailable REINDL, CLEOPATRA FARR Unavailable Unavailable REINSHARON, CLEOPATRA FARR Unavailable Unavailable REINSHARON, CLEOPATRA FARR Unavailable Unavailable REINDL, CLEOPATRA FARR Unavailable Unavailable REINDL, CLEOPATRA FARR Unavailable Unavailable REINDL, CLEOPATRA FARR Unavailable Unavailable REINDL, CLEOPATRA FARR Unavailable Unavailable REINDL, CLEOPATRA FARR Unavailable Unavailable REINDL, CLEOPATRA FARR Unavailable Unavailable REINDL, CLEOPATRA FARR Unavailable Unavailable REINDL, CLEOPATRA FARR Unavailable Unavailable REINDL, CLEOPATRA FARR Unavailable Unavailable REINDL, CLEOPATRA FARR Unavailable Unavailable REINDL, CLEOPATRA FARR Unavailable Unavailable REINDL, CLEOPATRA FARR Unavailable Unavailable REINDL, CLEOPATRA FARR Unavailable Unavailable REINDL, CLEOPATRA FARR Unavailable Unavailable REINDL, CLEOPATRA FARR Unavailable Unavailable REINDL, CLEOPATRA FARR Unavailable Unavailable REINDL, CLEOPATRA FARR Unavailable Unavailable REINDL, CLEOPATRA FARR Unavailable Unavailable REINSHARON, CLEOPATRA FARR Unavailable Unavailable REINDL, CLEOPATRA FARR Unavailable Unavailable REINDL, CLEOPATRA FARR Unavailable Unavailable REINDL, CLEOPATRA FARR Unavailable Unavailable REINDL, CLEOPATRA FARR Unavailable Unavailable REINDL, CLEOPATRA FARR Unavailable Unavailable REINDL, CLEOPATRA FARR Unavailable Unavailable REINDL, CLEOPATRA FARR Unavailable Unavailable REINDL, CLEOPATRA FARR Unavailable Unavailable REINDL, CLEOPATRA FARR Unavailable Unavailable REINDL, CLEOPATRA FARR Unavailable Unavailable REINDL, CLEOPATRA FARR Unavailable Unavailable REINDL, CLEOPATRA FRAR Unavailable Unavailable REINDL, CLEOPATRA FARR Unavailable Unavailable REINDL, CELOPATRA FARR Unavailable Unavailable REINDL, CLEOPATRA FARR Unavailable Unavailable REINSHARON, CLEOPATRA FARR Unavailable Unavailable DEREK, CLEOPATRA FARR Unavailable Unavailable DEREK, CLEOPATRA FARR Unavailable Unavailable Allyson Kevin MD Unavailable Unavailable Allyson Kevin MD Unavailable Unavailable Allyson Kevin MD Unavailable Unavailable Allyson Kevin MD Unavailable Unavailable Allyson Kevin MD Unavailable Unavailable Allyson Kevin MD Unavailable Unavailable Allyson Kevin MD Unavailable Unavailable Allyson Kevin MD Unavailable Unavailable Allyson Kevin MD Unavailable Unavailable Allyson Kevin MD Unavailable Unavailable Allyson Kevin MD Unavailable Unavailable Allyson Kevin MD Unavailable Unavailable Allyson Kevin MD Unavailable Unavailable Allyson Kevin MD Unavailable Unavailable Allyson Kevin MD Unavailable Unavailable Allyson Kevin MD Unavailable Unavailable Allyson Kevin MD Unavailable Unavailable Allyson Kevin MD Unavailable Unavailable Allyson Kevin MD Unavailable Unavailable Allyson Kevin MD Unavailable Unavailable Allyson Kevin MD Unavailable Unavailable Allyson Kevin MD Unavailable Unavailable Allyson Kevin MD Unavailable Unavailable Allyson Kevin MD Unavailable Unavailable Allyson Kevin MD Unavailable Unavailable Allyson Kevin MD Unavailable Unavailable Allyson Kevin MD Unavailable Unavailable Allyson Kevin MD Unavailable Unavailable Allyson Kevin MD Unavailable Unavailable Allyson Kevin MD Unavailable Unavailable Allyson Kevin MD Unavailable Unavailable Allyson Kevin MD Unavailable Unavailable Allyson Kevin MD Unavailable Unavailable Allyson Kevin MD Unavailable Unavailable Allyson Kevin MD Unavailable Unavailable Allyson Kevin MD Unavailable Unavailable Allyson Kevin MD Unavailable Unavailable Allyson Kevin MD Unavailable Unavailable Allyson Kevin MD Unavailable Unavailable Allyson Kevin MD Unavailable Unavailable Allyson Kevin MD Unavailable Unavailable Allyson Kevin MD Unavailable Unavailable Allyson Kevin MD Unavailable Unavailable Allyson Kevin MD Unavailable Unavailable Allyson Kevin MD Unavailable Unavailable Allyson Kevin MD Unavailable Unavailable Allyson Kevin MD Unavailable Unavailable Allyson Kevin MD Unavailable Unavailable Allyson Kevin MD Unavailable Unavailable Allyson Kevin MD Unavailable Unavailable Allyson Kevin MD Unavailable Unavailable Allyson Kevin MD Unavailable Unavailable Allyson Kevin MD Unavailable Unavailable Allyson Kevin MD Unavailable Unavailable Allyson Kevin MD Unavailable Unavailable Allyson Kevin MD Unavailable Unavailable Allyson Kevin MD Unavailable Unavailable Allyson Kevin MD Unavailable Unavailable Re-disclosure Warning The records that you are about to access may contain information from federally-assisted alcohol or drug abuse programs. If such information is present, then the following federally mandated warning applies: This information has been disclosed to you from records protected by federal confidentiality rules (42 CFR part 2). The federal rules prohibit you from making any further disclosure of this information unless further disclosure is expressly permitted by the written consent of the person to whom it pertains or as otherwise permitted by 42 CFR part 2. A general authorization for the release of medical or other information is NOT sufficient for this purpose. The Federal rules restrict any use of the information to criminally investigate or prosecute any alcohol or drug abuse patient.The records that you are about to access may contain highly sensitive health information, the redisclosure of which is protected by Article 27-F of the [facility] Public [facility] law. If you continue you may have access to information: Regarding HIV / AIDS; Provided by facilities licensed or operated by the [facility] Office of Mental Health; or Provided by the [facility] Office for People With Developmental Disabilities. If such information is present, then the following [facility] mandated warning applies: This information has been disclosed to you from confidential records which are protected by state law. State law prohibits you from making any further disclosure of this information without the specific written consent of the person to whom it pertains, or as otherwise permitted by law. Any unauthorized further disclosure in violation of state law may result in a fine or chcf sentence or both. A general authorization for the release of medical or other information is NOT sufficient authorization for further disc losure. Encounters Encounter Providers Location Date Indications Data Source(s ) [place] [address] [facility] [address] 12/09/2020 12:00:00 AM EDT eCW1 ([facility]) Outpatient Attender: CLEOPATRA Goldberg/Arnoldo/Igor/Rene kearney 09/29/2020 03:00:00 PM EDT MEDENT ([facility], ) [place] [address] [facility] [address] 08/27/2020 12:00:00 AM EDT eCW1 ([facility]) [place] [address] [facility] [address] 08/26/2020 12:00:00 AM EDT eCW1 ([facility]) [place] [address] [facility] [address] 07/27/2020 12:00:00 AM EDT eCW1 ([facility]) [place] [address] [facility] [address] 07/22/2020 12:00:00 AM EDT eCW1 ([facility]) [place] [address] [facility] [address] 07/20/2020 12:00:00 AM EDT eCW1 ([facility]) [place] [address] [facility] [address] 07/19/2020 12:00:00 AM EDT eCW1 ([facility]) [place] [address] [facility] [address] 07/08/2020 12:00:00 AM EDT eCW1 ([facility]) [place] [address] [facility] [address] 06/24/2020 12:00:00 AM EDT eCW1 ([facility]) [place] [address] [facility] [address] 06/07/2020 12:00:00 AM EDT eCW1 ([facility]) Unknown [address] [facility] [address] 05/20/2020 12:00:00 AM EST eCW1 ([facility]) Unknown [address] [facility] [address] 04/29/2020 12:00:00 AM EST eCW1 ([facility]) Unknown [address] [facility] [address] 04/21/2020 12:00:00 AM EST eCW1 ([facility]) [place] [address] [facility] [address] 04/21/2020 12:00:00 AM EST eCW1 ([facility]) [place] [address] [facility] [address] 04/13/2020 12:00:00 AM EST eCW1 ([facility]) [place]patient [address] [facility] [address] 04/08/2020 12:00:00 AM EST eCW1 ([facility]) Unknown [address] [facility] [address] 03/31/2020 12:00:00 AM EST eCW1 ([facility]) Outpatient CHRISTIANO 03/18/2020 10:16:27 AM EST [facility] 10:29:02 AM EST [facility] [place] [address] [facility] [address] 03/10/2020 12:00:00 AM EST eCW1 ([facility]) [place]patient [address] [facility] [address] 02/20/2020 12:00:00 AM EST eCW1 ([facility]) Outpatient Referrer: Allyson DOMNIGUEZLUCILLE 03/2019 12:00:00 AM EST [facility] Outpatient [address] [facility] [address] 02/02/2020 12:00:00 AM EST eCW1 ([facility]) Unknown [address] [facility] [place] [address] 01/26/2020 12:00:00 AM EST eCW1 ([facility]) Unknown [address] [facility] [place] [address] 01/25/2020 12:00:00 AM EST eCW1 ([facility]) [place] [address] [facility] [address] 01/08/2020 12:00:00 AM EDT eCW1 ([facility]) [place] [address] [facility] [address] 01/07/2020 12:00:00 AM EDT eCW1 ([facility]) Immunizations Vaccine Date Status Description Data Source(s) COVID-19 dose #2 given elsewhere Unspecified 06/15/2020 09:3 3:00 AM EDT completed eCW1 ([facility]) COVID-19 dose #2 given elsewhere Unspecified 06/15/2020 09:3 3:00 AM EDT completed eCW1 ([facility]) COVID-19 dose #2 given elsewhere Unspecified 06/15/2020 09:3 3:00 AM EDT completed eCW1 ([facility]) COVID-19 dose #2 given elsewhere Unspecified 06/15/2020 09:3 3:00 AM EDT completed eCW1 ([facility]) COVID-19 dose #2 given elsewhere Unspecified 06/15/2020 09:3 3:00 AM EDT completed eCW1 ([facility]) COVID-19 dose #2 given elsewhere Unspecified 06/15/2020 09:3 3:00 AM EDT completed eCW1 ([facility]) COVID-19 dose #2 given elsewhere Unspecified 06/15/2020 09:3 3:00 AM EDT completed eCW1 ([facility]) COVID-19 dose #2 given elsewhere Unspecified 06/15/2020 09:3 3:00 AM EDT completed eCW1 ([facility]) COVID-19 VACCINE Moderna 06/12/2020 12:00:00 AM EDT completed [employer] Vaccine Series Complete: YESThis Data wa s Submitted to [facility] Via [employer]. COVID-19 dose #1 given elsewhere Unspecified 05/24/2020 09:3 3:00 AM EDT completed eCW1 ([facility]) COVID-19 dose #1 given elsewhere Unspecified 05/24/2020 09:3 3:00 AM EDT completed eCW1 ([facility]) COVID-19 dose #1 given elsewhere Unspecified 05/24/2020 09:3 3:00 AM EDT completed eCW1 ([facility]) COVID-19 dose #1 given elsewhere Unspecified 05/24/2020 09:3 3:00 AM EDT completed eCW1 ([facility]) COVID-19 dose #1 given elsewhere Unspecified 05/24/2020 09:3 3:00 AM EDT completed eCW1 ([facility]) COVID-19 dose #1 given elsewhere Unspecified 05/24/2020 09:3 3:00 AM EDT completed eCW1 ([facility]) COVID-19 dose #1 given elsewhere Unspecified 05/24/2020 09:3 3:00 AM EDT completed eCW1 ([facility]) COVID-19 dose #1 given elsewhere Unspecified 05/24/2020 09:3 3:00 AM EDT completed eCW1 ([facility]) COVID-19 VACCINE Moderna 05/15/2020 12:00:00 AM EST completed [employer] Vaccine Series Complete: NOThis Data was Submitted to [facility] Via [employer]. influenza, recombinant, quadrIvalent,injectable, prese rvative free 01/07/2020 03:18:00 PM EDT completed eCW1 ([facility]) influenza, recombinant, quadrIvalent,injectable, prese rvative free 01/07/2020 03:18:00 PM EDT completed eCW1 ([facility]) influenza, recombinant, quadrIvalent,injectable, prese rvative free 01/07/2020 03:18:00 PM EDT completed eCW1 ([facility]) influenza, recombinant, quadrIvalent,injectable, prese rvative free 01/07/2020 03:18:00 PM EDT completed eCW1 ([facility]) influenza, recombinant, quadrIvalent,injectable, prese rvative free 01/07/2020 03:18:00 PM EDT completed eCW1 ([facility]) influenza, recombinant, quadrIvalent,injectable, prese rvative free 01/07/2020 03:18:00 PM EDT completed eCW1 ([facility]) influenza, recombinant, quadrIvalent,injectable, prese rvative free 01/07/2020 03:18:00 PM EDT completed eCW1 ([facility]) influenza, recombinant, quadrIvalent,injectable, prese rvative free 01/07/2020 03:18:00 PM EDT completed eCW1 ([facility]) influenza, recombinant, quadrIvalent,injectable, prese rvative free 01/07/2020 03:18:00 PM EDT completed eCW1 ([facility]) influenza, recombinant, quadrIvalent,injectable, prese rvative free 01/07/2020 03:18:00 PM EDT completed eCW1 ([facility]) influenza, recombinant, quadrIvalent,injectable, prese rvative free 01/07/2020 03:18:00 PM EDT completed eCW1 ([facility]) influenza, recombinant, quadrIvalent,injectable, prese rvative free 01/07/2020 03:18:00 PM EDT completed eCW1 ([facility]) influenza, recombinant, quadrIvalent,injectable, prese rvative free 01/07/2020 03:18:00 PM EDT completed eCW1 ([facility]) influenza, recombinant, quadrIvalent,injectable, prese rvative free 01/07/2020 03:18:00 PM EDT completed eCW1 ([facility]) influenza, recombinant, quadrIvalent,injectable, prese rvative free 01/07/2020 03:18:00 PM EDT completed eCW1 ([facility]) influenza, recombinant, quadrIvalent,injectable, prese rvative free 01/07/2020 03:18:00 PM EDT completed eCW1 ([facility]) influenza, recombinant, quadrIvalent,injectable, prese rvative free 01/07/2020 03:18:00 PM EDT completed eCW1 ([facility]) influenza, recombinant, quadrIvalent,injectable, prese rvative free 01/07/2020 03:18:00 PM EDT completed eCW1 ([facility]) influenza, recombinant, quadrIvalent,injectable, prese rvative free 01/07/2020 03:18:00 PM EDT completed eCW1 ([facility]) influenza, recombinant, quadrIvalent,injectable, prese rvative free 01/07/2020 03:18:00 PM EDT completed eCW1 ([facility]) influenza, recombinant, quadrIvalent,injectable, prese rvative free 01/07/2020 03:18:00 PM EDT completed eCW1 ([facility]) influenza, recombinant, quadrIvalent,injectable, prese rvative free 01/07/2020 03:18:00 PM EDT completed eCW1 ([facility]) influenza, recombinant, quadrIvalent,injectable, prese rvative free 01/07/2020 03:18:00 PM EDT completed eCW1 ([facility]) influenza, recombinant, quadrIvalent,injectable, prese rvative free 01/07/2020 03:18:00 PM EDT completed eCW1 ([facility]) Medications Medication Brand Name Start Date Product Form Dose Route Admi nistrative Instructions Pharmacy Instructions Status Indications Reaction Description Data Source(s) Magnesium Hydroxide 80 MG/ML Oral Suspension Milk Of Magnesi a 09/29/2020 12:00:00 AM EDT ORAL active M EDENT ([facility], ) POLYETHYLENE GLYCOL 3350 142 MG/ML Oral Solution [Miralax] M iralax 09/29/2020 12:00:00 AM EDT active DENNIS ([facility], ) Vitamin D3 125 MCG (5000 UT) Vitamin D3 125 MCG (5000 UT) 12:00:00 AM EDT 1.0 {capsule} active Vitamin D3 125 MCG (5000 UT) eCW1 ([facility]) Vitamin D3 125 MCG (5000 UT) Vitamin D3 125 MCG (5000 UT) 12:00:00 AM EDT 1.0 {capsule} active Vitamin D3 125 MCG (5000 UT) eCW1 ([facility]) Vitamin D3 125 MCG (5000 UT) Vitamin D3 125 MCG (5000 UT) 12:00:00 AM EDT 1.0 {capsule} active Vitamin D3 125 MCG (5000 UT) eCW1 ([facility]) Vitamin D3 125 MCG (5000 UT) Vitamin D3 125 MCG (5000 UT) 12:00:00 AM EDT 1.0 {capsule} active Vitamin D3 125 MCG (5000 UT) eCW1 ([facility]) Vitamin D3 125 MCG (5000 UT) Vitamin D3 125 MCG (5000 UT) 12:00:00 AM EDT 1.0 {capsule} active Vitamin D3 125 MCG (5000 UT) eCW1 ([facility]) Naproxen 375 MG Oral Tablet Naproxen 375 MG 07/20/2020 12:00:00 AM EDT active Naproxen 375 MG eCW1 ([facility]) Naproxen 375 MG Oral Tablet Naproxen 375 MG 07/20/2020 12:00:00 AM EDT active Naproxen 375 MG eCW1 ([facility]) Naproxen 375 MG Oral Tablet Naproxen 375 MG 07/20/2020 12:00:00 AM EDT active Naproxen 375 MG eCW1 ([facility]) Alendronic acid 70 MG Oral Tablet Alendronate Sodium 7 0 MG Alendronate Sodium 70 MG 04/29/2020 12:00:00 AM EST active Alendronate Sodium 70 MG eCW1 ([facility]) Alendronic acid 70 MG Oral Tablet Alendronate Sodium 7 0 MG Alendronate Sodium 70 MG 04/29/2020 12:00:00 AM EST active Alendronate Sodium 70 MG eCW1 ([facility]) Alendronic acid 70 MG Oral Tablet Alendronate Sodium 7 0 MG Alendronate Sodium 70 MG 04/29/2020 12:00:00 AM EST active Alendronate Sodium 70 MG eCW1 ([facility]) Alendronic acid 70 MG Oral Tablet Alendronate Sodium 7 0 MG Alendronate Sodium 70 MG 04/29/2020 12:00:00 AM EST active Alendronate Sodium 70 MG eCW1 ([facility]) Amlodipine 2.5 MG Oral Tablet AmLODIPine Besylate 2.5 MG AmLODIPine Besylate 2.5 MG 04/08/2020 12:00:00 AM EST 1.0 {tablet} activ e AmLODIPine Besylate 2.5 MG eCW1 ([facility]) Amlodipine 2.5 MG Oral Tablet AmLODIPine Besylate 2.5 MG AmLODIPine Besylate 2.5 MG 04/08/2020 12:00:00 AM EST 1.0 {tablet} activ e AmLODIPine Besylate 2.5 MG eCW1 ([facility]) Amlodipine 2.5 MG Oral Tablet AmLODIPine Besylate 2.5 MG AmLODIPine Besylate 2.5 MG 04/08/2020 12:00:00 AM EST 1.0 {tablet} activ e AmLODIPine Besylate 2.5 MG eCW1 ([facility]) Amlodipine 2.5 MG Oral Tablet AmLODIPine Besylate 2.5 MG AmLODIPine Besylate 2.5 MG 04/08/2020 12:00:00 AM EST 1.0 {tablet} activ e AmLODIPine Besylate 2.5 MG eCW1 ([facility]) Amlodipine 2.5 MG Oral Tablet amLODIPine Besylate 2.5 MG amLODIPine Besylate 2.5 MG 04/08/2020 12:00:00 AM EST 1.0 {tablet} activ e amLODIPine Besylate 2.5 MG eCW1 ([facility]) Amlodipine 2.5 MG Oral Tablet AmLODIPine Besylate 2.5 MG AmLODIPine Besylate 2.5 MG 04/08/2020 12:00:00 AM EST 1.0 {tablet} activ e AmLODIPine Besylate 2.5 MG eCW1 ([facility]) Amlodipine 2.5 MG Oral Tablet AmLODIPine Besylate 2.5 MG AmLODIPine Besylate 2.5 MG 04/08/2020 12:00:00 AM EST 1.0 {tablet} activ e AmLODIPine Besylate 2.5 MG eCW1 ([facility]) Amlodipine 2.5 MG Oral Tablet AmLODIPine Besylate 2.5 MG AmLODIPine Besylate 2.5 MG 04/08/2020 12:00:00 AM EST 1.0 {tablet} activ e AmLODIPine Besylate 2.5 MG eCW1 ([facility]) Amlodipine 2.5 MG Oral Tablet AmLODIPine Besylate 2.5 MG AmLODIPine Besylate 2.5 MG 04/08/2020 12:00:00 AM EST 1.0 {tablet} activ e AmLODIPine Besylate 2.5 MG eCW1 ([facility]) Amlodipine 2.5 MG Oral Tablet AmLODIPine Besylate 2.5 MG AmLODIPine Besylate 2.5 MG 04/08/2020 12:00:00 AM EST 1.0 {tablet} activ e AmLODIPine Besylate 2.5 MG eCW1 ([facility]) Amlodipine 2.5 MG Oral Tablet AmLODIPine Besylate 2.5 MG AmLODIPine Besylate 2.5 MG 04/08/2020 12:00:00 AM EST 1.0 {tablet} activ e AmLODIPine Besylate 2.5 MG eCW1 ([facility]) Amlodipine 2.5 MG Oral Tablet AmLODIPine Besylate 2.5 MG AmLODIPine Besylate 2.5 MG 04/08/2020 12:00:00 AM EST 1.0 {tablet} activ e AmLODIPine Besylate 2.5 MG eCW1 ([facility]) Amlodipine 2.5 MG Oral Tablet AmLODIPine Besylate 2.5 MG AmLODIPine Besylate 2.5 MG 04/08/2020 12:00:00 AM EST 1.0 {tablet} activ e AmLODIPine Besylate 2.5 MG eCW1 ([facility]) Amlodipine 2.5 MG Oral Tablet amLODIPine Besylate 2.5 MG amLODIPine Besylate 2.5 MG 04/08/2020 12:00:00 AM EST 1.0 {tablet} activ e amLODIPine Besylate 2.5 MG eCW1 ([facility]) Amlodipine 2.5 MG Oral Tablet AmLODIPine Besylate 2.5 MG AmLODIPine Besylate 2.5 MG 04/08/2020 12:00:00 AM EST 1.0 {tablet} activ e AmLODIPine Besylate 2.5 MG eCW1 ([facility]) Amlodipine 5 MG Oral Tablet AmLODIPine Besylate 5 MG AmLODIP ine Besylate 5 MG 01/25/2020 12:00:00 AM EST 1.0 {tablet} active AmLODIPine Besylate 5 MG eCW1 ([facility]) Amlodipine 5 MG Oral Tablet AmLODIPine Besylate 5 MG AmLODIP ine Besylate 5 MG 01/25/2020 12:00:00 AM EST 1.0 {tablet} active AmLODIPine Besylate 5 MG eCW1 ([facility]) Amlodipine 5 MG Oral Tablet AmLODIPine Besylate 5 MG AmLODIP ine Besylate 5 MG 01/25/2020 12:00:00 AM EST 1.0 {tablet} active AmLODIPine Besylate 5 MG eCW1 ([facility]) Amlodipine 5 MG Oral Tablet AmLODIPine Besylate 5 MG AmLODIP ine Besylate 5 MG 01/25/2020 12:00:00 AM EST 1.0 {tablet} active AmLODIPine Besylate 5 MG eCW1 ([facility]) Amlodipine 5 MG Oral Tablet AmLODIPine Besylate 5 MG AmLODIP ine Besylate 5 MG 01/25/2020 12:00:00 AM EST 1.0 {tablet} active AmLODIPine Besylate 5 MG eCW1 ([facility]) Amlodipine 5 MG Oral Tablet AmLODIPine Besylate 5 MG AmLODIP ine Besylate 5 MG 01/25/2020 12:00:00 AM EST 1.0 {tablet} active AmLODIPine Besylate 5 MG eCW1 ([facility]) Acetaminophen 500 MG Oral Tablet Acetaminophen Extra S trength 500 MG Acetaminophen Extra Strength 500 MG 01/23/2020 12:00:00 AM EST 2.0 {tablets_as_needed} active Acetaminophe n Extra Strength 500 MG eCW1 ([facility]) Acetaminophen 500 MG Oral Tablet Acetaminophen Extra S trength 500 MG Acetaminophen Extra Strength 500 MG 01/23/2020 12:00:00 AM EST 2.0 {tablets_as_needed} active Acetaminophe n Extra Strength 500 MG eCW1 ([facility]) Acetaminophen 500 MG Oral Tablet Acetaminophen Extra S trength 500 MG Acetaminophen Extra Strength 500 MG 01/23/2020 12:00:00 AM EST 2.0 {tablets_as_needed} active Acetaminophe n Extra Strength 500 MG eCW1 ([facility]) Acetaminophen 500 MG Oral Tablet Acetaminophen Extra S trength 500 MG Acetaminophen Extra Strength 500 MG 01/23/2020 12:00:00 AM EST 2.0 {tablets_as_needed} active Acetaminophe n Extra Strength 500 MG eCW1 ([facility]) Acetaminophen 500 MG Oral Tablet Acetaminophen Extra S trength 500 MG Acetaminophen Extra Strength 500 MG 01/23/2020 12:00:00 AM EST 2.0 {tablets_as_needed} active Acetaminophe n Extra Strength 500 MG eCW1 ([facility]) Acetaminophen 500 MG Oral Tablet Acetaminophen Extra S trength 500 MG Acetaminophen Extra Strength 500 MG 01/23/2020 12:00:00 AM EST 2.0 {tablets_as_needed} active Acetaminophe n Extra Strength 500 MG eCW1 ([facility]) Acetaminophen 500 MG Oral Tablet Acetaminophen Extra S trength 500 MG Acetaminophen Extra Strength 500 MG 01/23/2020 12:00:00 AM EST 2.0 {tablets_as_needed} active Acetaminophe n Extra Strength 500 MG eCW1 ([facility]) Acetaminophen 500 MG Oral Tablet Acetaminophen Extra S trength 500 MG Acetaminophen Extra Strength 500 MG 01/23/2020 12:00:00 AM EST 2.0 {tablets_as_needed} active Acetaminophe n Extra Strength 500 MG eCW1 ([facility]) Acetaminophen 500 MG Oral Tablet Acetaminophen Extra S trength 500 MG Acetaminophen Extra Strength 500 MG 01/23/2020 12:00:00 AM EST 2.0 {tablets_as_needed} active Acetaminophe n Extra Strength 500 MG eCW1 ([facility]) Acetaminophen 500 MG Oral Tablet Acetaminophen Extra S trength 500 MG Acetaminophen Extra Strength 500 MG 01/23/2020 12:00:00 AM EST 2.0 {tablets_as_needed} active Acetaminophe n Extra Strength 500 MG eCW1 ([facility]) Acetaminophen 500 MG Oral Tablet Acetaminophen Extra S trength 500 MG Acetaminophen Extra Strength 500 MG 01/23/2020 12:00:00 AM EST 2.0 {tablets_as_needed} active Acetaminophe n Extra Strength 500 MG eCW1 ([facility]) Acetaminophen 500 MG Oral Tablet Acetaminophen Extra S trength 500 MG Acetaminophen Extra Strength 500 MG 01/23/2020 12:00:00 AM EST 2.0 {tablets_as_needed} active Acetaminophe n Extra Strength 500 MG eCW1 ([facility]) Acetaminophen 500 MG Oral Tablet Acetaminophen Extra S trength 500 MG Acetaminophen Extra Strength 500 MG 01/23/2020 12:00:00 AM EST 2.0 {tablets_as_needed} active Acetaminophe n Extra Strength 500 MG eCW1 ([facility]) Acetaminophen 500 MG Oral Tablet Acetaminophen Extra S trength 500 MG Acetaminophen Extra Strength 500 MG 01/23/2020 12:00:00 AM EST 2.0 {tablets_as_needed} active Acetaminophe n Extra Strength 500 MG eCW1 ([facility]) Acetaminophen 500 MG Oral Tablet Acetaminophen Extra S trength 500 MG Acetaminophen Extra Strength 500 MG 01/23/2020 12:00:00 AM EST 2.0 {tablets_as_needed} active Acetaminophe n Extra Strength 500 MG eCW1 ([facility]) Acetaminophen 500 MG Oral Tablet Acetaminophen Extra S trength 500 MG Acetaminophen Extra Strength 500 MG 01/23/2020 12:00:00 AM EST 2.0 {tablets_as_needed} active Acetaminophe n Extra Strength 500 MG eCW1 ([facility]) Acetaminophen 500 MG Oral Tablet Acetaminophen Extra S trength 500 MG Acetaminophen Extra Strength 500 MG 01/23/2020 12:00:00 AM EST 2.0 {tablets_as_needed} active Acetaminophe n Extra Strength 500 MG eCW1 ([facility]) Acetaminophen 500 MG Oral Tablet Acetaminophen Extra S trength 500 MG Acetaminophen Extra Strength 500 MG 01/23/2020 12:00:00 AM EST 2.0 {tablets_as_needed} active Acetaminophe n Extra Strength 500 MG eCW1 ([facility]) Acetaminophen 500 MG Oral Tablet Acetaminophen Extra S trength 500 MG Acetaminophen Extra Strength 500 MG 01/23/2020 12:00:00 AM EST 2.0 {tablets_as_needed} active Acetaminophe n Extra Strength 500 MG eCW1 ([facility]) Acetaminophen 500 MG Oral Tablet Acetaminophen Extra S trength 500 MG Acetaminophen Extra Strength 500 MG 01/23/2020 12:00:00 AM EST 2.0 {tablets_as_needed} active Acetaminophe n Extra Strength 500 MG eCW1 ([facility]) Acetaminophen 500 MG Oral Tablet Acetaminophen Extra S trength 500 MG Acetaminophen Extra Strength 500 MG 01/23/2020 12:00:00 AM EST 2.0 {tablets_as_needed} active Acetaminophe n Extra Strength 500 MG eCW1 ([facility]) Insurance Providers Payer name Policy type / Coverage type Policy ID Covered constitution party ID Covered constitution party's relationship to lou Policy Lou Plan Information MEDICARE [id number] Bridgett [id number] [id number] [employer]MA[employer] GOLD [id number] SP [id number] MEDICARE [id number] SP [id number] MEDICARE [id number] SP [id number] [id number] [facility] MEDICAID [id number] SP [id number] WELLCARE [id number] SP [id number] HUMANA GOLD [id number] SP [id number] WELLCARE [id number] SP [id number] SP [id number] MEDICARE C [id number] S [id number] [id number] MEDICAID M [id number] S [id number] SELF PAY ONLY [id number] SP [id number] MEDICARE [id number] SP [id number] [employer]MANA GOLD [id number] SP [id number] MEDICARE [id number] SP [id number] Problems, Conditions, and Diagnoses Code Display Name Description Problem Type Effective Dates Data Source(s) E55.9 Vitamin D deficiency Vitamin D deficiency Problem 07/20/2020 12:00:00 AM EDT eCW1 ([facility]) D75.89 Macrocytosis Macrocytosis Problem 04/08/2020 12:00:00 A M EST eCW1 ([facility]) D75.89 [id number] Macrocytosis without anemia Problem 02/20/20 12:00:00 AM EST eCW1 ([facility]) K21.9 [id number] Gastroesophageal ref lux disease, unspecified whether esophagitis present Problem 01/07/2020 12:00:00 AM EDT eCW1 ([facility]) E78.2 [id number] Mixed hyperlipidemia Problem 01/07/2020 12:0 0:00 AM EDT eCW1 ([facility]) I10 [id number] Essential hypertension Problem 01/07/2020 12 :00:00 AM EDT eCW1 ([facility]) Z86.73 [id number] History of TIA (transient ischemic attack ) Problem 01/07/2020 12:00:00 AM EDT eCW1 ([facility]) F17.210 [id number] Cigarette nicotine dependence without com plication Problem 01/07/2020 12:00:00 AM EDT eCW1 ([facility]) Surgeries/Procedures Procedure Description Date Indications Data Source(s) OFFICE OUTPATIENT VISIT 25 MINUTES 09/29/2020 12:00:00 AM EDT MEDENT ([facility]) ECG ROUTINE ECG W/LEAST 12 LDS W/I&R 01/07/2020 12:00: 00 AM EDT eCW1 ([facility]) Immunization: Flublok Quadrivalent (18 years & older) 0.5mL IM (Influenza) 01/07/2020 12:00:00 AM EDT eCW1 ([facility]) Results ID Date Data Source [id number] 03/18/2020 10:06:34 AM EST [facility] Name Value Range Interpretation Code Description Data Tram rce(s) Supporting Document(s) &PDF [facility] DRFIXe6xPoTGIwMd01/KKNikPGWed4OvHCziEEy0TTpgPCBiM1VsmKluYTRMOU5QMZTICr4EVYCBMP4e [facility] [file] ICAgICAgICAgICAgICAgICAgICAgICAgICAgICAgICAgICAgICAgICAgICAgICAgICAgICAgICAgICAg ICAgICAgICAgICAgICAgICAgICAgICAgICAgICAgICAgICAgICANCiAgICAgICAgICAgICAgICAgICAg ICAgICAgICAgICAgICAgICAgICAgICAgICAgICAgIC AgICAgICAgICAgICAgICAgICAgICAgICAgICAgICAgICAgICAgICAgICAgICAgICANCiAgICAgICAgIC AgICAgICAgICAgICAgICAgICAgICAgICAgICAgICAgICAgICAgICAgICAgICAgICAgICAgICAgICAgIC AgICAgICAgICAgICAgICAgICAgICAgICAgICAgICAN CiAgICAgICAgICAgICAgICAgICAgICAgICAgICAgICAgICAgICAgICAgICAgICAgICAgICAgICAgICAg ICAgICAgICAgICAgICAgICAgICAgICAgICAgICAgICAgICAgICAgICANCiAgICAgICAgICAgICAgICAg ICAgICAgICAgICAgICAgICAgICAgICAgICAgICAgIC AgICAgICAgICAgICAgICAgICAgICAgICAgICAgICAgICAgICAgICAgICAgICAgICAgICANCiAgICAgIC AgICAgICAgICAgICAgICAgICAgICAgICAgICAgICAgICAgICAgICAgICAgICAgICAgICAgICAgICAgIC AgICAgICAgICAgICAgICAgICAgICAgICAgICAgICAg ICANCiAgICAgICAgICAgICAgICAgICAgICAgICAgICAgICAgICAgICAgICAgICAgICAgICAgICAgICAg ICAgICAgICAgICAgICAgICAgICAgICAgICAgICAgICAgICAgICAgICAgICANCiAgICAgICAgICAgICAg ICAgICAgICAgICAgICAgICAgICAgICAgICAgICAgIC AgICAgICAgICAgICAgICAgICAgICAgICAgICAgICAgICAgICAgICAgICAgICAgICAgICAgICANCiAgIC AgICAgICAgICAgICAgICAgICAgICAgICAgICAgICAgICAgICAgICAgICAgICAgICAgICAgICAgICAgIC AgICAgICAgICAgICAgICAgICAgICAgICAgICAgICAg ICAgICANCiAgICAgICAgICAgICAgICAgICAgICAgICAgICAgICAgICAgICAgICAgICAgICAgICAgICAg ICAgICAgICAgICAgICAgICAgICAgICAgICAgICAgICAgICAgICAgICAgICAgICANCjw/rPLsY9ybvZPr vlZ6G3wtDk9QHp9YCQ2nr1GkGFBoOMjevwFsBvvABi VvUFVaUluNPqj2TNfqBK1BmFJmW6FqN4KwRJijAW2CESHwWKJtoFRrLUPqKOGuDrA9AIBoYCrhER3BnT YfPVnwVAAbTGZxXW9IHOUhP877mfQeKG6FZw7QTqLfWX8ggo2TNOktEEUpWdoZOmn1MQtvDD3OjNIqC6 VqfWBpq4dBGxOdF6KAYJA1CEHmBk2WLGNnEeNtNVSx GKtuXT0gNDFdWZOArVpxkeW0JQ2SVJ0otfPdCS6JTmHoKe3uIz2QQsJgL0AvB6FaLLXsIOOZFJszRC4M IXWzLAZ0DXXuFPNsDJTGMgZvX64xKR6KE0Bsn82gQsS6BZCeSjYxGPelSB20wGnpnaLyeRXtqZzzQZ2W Cj4+DQplbmRvYmoNCnhyZWYNCjAgMjANCjAwMDAwMD IzXTJsLoB6GuCxYw5ZFOGuYCRqNSCzNiRsGCGsWDDxJQuiTNInJXX5VwliFEFhJMWlRP6QTjSnDNRrKH xhXZvzFAAuHBNxep4VCOUaYBZmRIN2DMCxCOHqFJNjIAuuOMKuQJUyBEH9LLGcWUYxVW0AQsWvREDvEH U2FPJgMVLiXWZggz6TJHGaHUToCcF9YzLzFUTtXHQv RGgmQWSmWLSnJwF6QETvYMJbWJ8EEhDoBFEgFQN8HNwnTSWrKAZvvy2NAWLjVGSeCHyjCzWjOBKfHZKj BUdeVKNkPED0YJR4OSJtLTGhQW0VIdVgMRHvIJRySSLfJQGzRLAmvb8PWDWoJUJcAkJ1MfGsUQCwVJEf EEceGAThOEV5XCY4CVYfNNAvUA5KMdNuGBLhVKL9Es qeTIViAZXveq1IUOOfPIGwVzHhXLTjSIYyCDBjPCfxXIPtQAE6LfQ3MNGkKBEbIA4DZeOdTEGjVQF2Wy hvYEUuAPQvcv8XHWZfEFKiNfDfAqKwFFCaUUGbVGu3nfLwpEEaEGe9OM9SV8ZmlfKrPuUOLl8If536NM S5VYClAy0WQ4hlCf3sLYWhIKBDXi8QQGs6NRDjNnqm ODSbO2BsBUUkGGGcGVPeVkS9TSbqZjYzZXc+EVbrUuTkN1ItWZYnAbA8PeJsQYYgGMC6DjGoGYQzEWMm Ud9yCJYUUt5+VHpxiJVnqBbmFTRRPmT9HYM3VQhsMRWSTn2V ID Date Data Source [facility] 02/02/2020 12:00:00 AM EST eCW1 ([facility]) Name Value Range Interpretation Code Description Data Tram rce(s) Supporting Document(s) 130 8-252 FERRITIN eCW1 ([facility]) ID Date Data Source MAGNESIUM LEVEL 02/02/2020 12:00:00 AM EST eCW1 ([facility]) Name Value Range Interpretation Code Description Data Tram rce(s) Supporting Document(s) 2.1 1.8-2.4 MAGNESIUM LEVEL eCW1 ([facility]) ID Date Data Source IRON (FE) 02/02/2020 12:00:00 AM EST eCW1 ([facility]) Name Value Range Interpretation Code Description Data Tram rce(s) Supporting Document(s) 112 50-170 IRON (FE) eCW1 ([facility]) ID Date Data Source Comprehensive Metabolic Profile (CMP) 02/02/2020 12:00:00 AM EST eCW1 ([facility]) Name Value Range Interpretation Code Description Data Tram rce(s) Supporting Document(s) 90 70-100 GLUCOSE, FASTING eCW1 ([facility]) 137 136-145 SODIUM LEVEL eCW1 ([facility]) 3 7-18 BLOOD UREA NITROGEN eCW1 ([facility]) 0.58 0.55-1.30 CREATININE FOR GFR eCW1 ([facility]) > 60.0 >39 GLOMERULAR FILTRATION RATE eCW 1 ([facility]) 4.2 3.5-5.1 POTASSIUM SERUM eCW1 ([facility]) 9.2 8.8-10.2 CALCIUM LEVEL eCW1 ([facility]) 25 21-32 CARBON DIOXIDE LEVEL eCW1 ([facility]) 104 98-107 CHLORIDE LEVEL eCW1 ([facility]) 26 7-37 AST/SGOT eCW1 ([facility]) 0.3 0.2-1.0 BILIRUBIN,TOTAL eCW1 ([facility]) 6.5 6.4-8.2 TOTAL PROTEIN eCW1 ([facility]) 2.8 3.2-5.2 ALBUMIN eCW1 ([facility]) 23 12-78 ALT/SGPT eCW1 ([facility]) 115 45-117 ALKALINE PHOSPHATASE eCW1 ([facility]) 0.8 1.2-2.2 ALBUMIN/GLOBULIN RATIO eCW1 ([facility]) ID Date Data Source CBC with Differential 02/02/2020 12:00:00 AM EST eCW1 ([facility]) Name Value Range Interpretation Code Description Data Tram rce(s) Supporting Document(s) 4.09 4.00-5.40 RED BLOOD COUNT eCW1 ([facility]) 7.5 4.0-10.0 WHITE BLOOD COUNT eCW1 [facility] 14.5 12.0-15.5 HEMOGLOBIN eCW1 ([facility]) 107.6 80.0-96.0 MEAN CORPUSCULAR VOLUME e CW1 ([facility]) 33.0 32.0-36.5 MEAN CORPUSCULAR HGB CONC eCW1 ([facility]) 35.5 27.0-33.0 MEAN CORPUSCULAR HEMOGLOB IN eCW1 ([facility]) 44.0 36.0-47.0 HEMATOCRIT eCW1 ([facility]) 44.0 36.0-66.0 NEUTROPHILS % eCW1 ([facility]) 339 150-450 PLATELET COUNT, AUTOMATED eCW1 ([facility]) 13.2 11.5-14.5 RED CELL DISTRIBUTION WID TH eCW1 ([facility]) 44.6 24.0-44.0 LYMPH % eCW1 ([facility]) 1.6 0.0-3.0 EOS % eCW1 ([facility]) 3.3 1.5-8.5 NEUTROPHILS # eCW1 ([facility]) 8.4 0.0-5.0 MONO % eCW1 ([facility]) 1.1 0.0-1.0 BASO % eCW1 ([facility]) 3.3 1.5-5.0 LYMPH # eCW1 ([facility]) 0.1 0.0-0.2 BASO # eCW1 ([facility]) 0.6 0.0-0.8 MONO # eCW1 ([facility]) 0.1 0.0-0.5 EOS # eCW1 ([facility]) ID Date Data Source FREE T4 & TSH PANEL 01/08/2020 04:13:07 AM EDT eCW1 ([facility]) Name Value Range Interpretation Code Description Data Tram rce(s) Supporting Document(s) 1.32 eCW1 ([facility]) 0.859 eCW1 ([facility]) Procedure Social History Code Duration Value Status Description Data Source(s ) Smoking 11/08/2020 12:00:00 AM EDT Current Smoker completed Curre nt Smoker eCW1 ([facility]) Smoking 08/26/2020 12:00:00 AM EDT Current Smoker completed Curre nt Smoker eCW1 ([facility]) Smoking 08/26/2020 12:00:00 AM EDT Current Smoker completed Curre nt Smoker eCW1 ([facility]) Smoking 07/20/2020 12:00:00 AM EDT Current Smoker completed Curre nt Smoker eCW1 ([facility]) Smoking 07/20/2020 12:00:00 AM EDT Current Smoker completed Curre nt Smoker eCW1 ([facility]) Smoking 07/20/2020 12:00:00 AM EDT Current Smoker completed Curre nt Smoker eCW1 ([facility]) Smoking 07/08/2020 12:00:00 AM EDT Current Smoker completed Curre nt Smoker eCW1 ([facility]) Smoking 07/08/2020 12:00:00 AM EDT Current Smoker completed Curre nt Smoker eCW1 ([facility]) Smoking 04/08/2020 12:00:00 AM EST Current Smoker completed Curre nt Smoker eCW1 ([facility]) Smoking 04/08/2020 12:00:00 AM EST Current Smoker completed Curre nt Smoker eCW1 ([facility]) Smoking 04/08/2020 12:00:00 AM EST Current Smoker completed Curre nt Smoker eCW1 ([facility]) Smoking 04/08/2020 12:00:00 AM EST Current Smoker completed Curre nt Smoker eCW1 ([facility]) Smoking 04/08/2020 12:00:00 AM EST Current Smoker completed Curre nt Smoker eCW1 ([facility]) Smoking 04/08/2020 12:00:00 AM EST Current Smoker completed Curre nt Smoker eCW1 ([facility]) Smoking 04/08/2020 12:00:00 AM EST Current Smoker completed Curre nt Smoker eCW1 ([facility]) Smoking 04/08/2020 12:00:00 AM EST Current Smoker completed Curre nt Smoker eCW1 ([facility]) Smoking 02/20/2020 12:00:00 AM EST Current Smoker completed Curre nt Smoker eCW1 ([facility]) Smoking 02/20/2020 12:00:00 AM EST Current Smoker completed Curre nt Smoker eCW1 ([facility]) Smoking 02/20/2020 12:00:00 AM EST Current Smoker completed Curre nt Smoker eCW1 ([facility]) Smoking 02/02/2020 12:00:00 AM EST Current Smoker completed Curre nt Smoker eCW1 ([facility]) Smoking 01/07/2020 12:00:00 AM EDT Current Smoker completed Curre nt Smoker eCW1 ([facility]) Smoking 01/07/2020 12:00:00 AM EDT Current Smoker completed Curre nt Smoker eCW1 ([facility]) Smoking 01/07/2020 12:00:00 AM EDT Current Smoker completed Curre nt Smoker eCW1 ([facility]) Smoking 01/07/2020 12:00:00 AM EDT Current Smoker completed Curre nt Smoker eCW1 ([facility]) Vital Signs ID Date Data Source UNK Name Value Range Interpretation Code Description Data Source(s) Systolic blood pressure 134 mm[Hg] 134 mm[Hg] M EDENT ([facility]) Diastolic blood pressure 68 mm[Hg] 68 mm[Hg] [facility] ([facility]) Body height 64 [in_i] 64 [in_i] [facility] ([facility]) 5'4" Body weight 142.00 [lb_av] 142.00 [lb_av] MEDEN T ([facility]) Body mass index (BMI) [Ratio] 24.4 kg/m2 24.4 k g/m2 [facility] ([facility]) [place] body weight 120 [lb_av] 120 [lb_av] MEDEN T ([facility]) Body weight 64.411 kg 64.411 kg [facility] ([facility]) Body surface area Derived from formula 1.69 m2 1.69 m2 [facility] ([facility]) Body weight 143 [lb_av] 143 [lb_av] eCW1 ([facility]) Body height 65 [in_i] 65 [in_i] eCW1 ([facility]) Body mass index (BMI) [Ratio] 23.79 kg/m2 23.79 kg/m2 W1 ([facility]) Heart rate 101 /min 101 /min eCW1 ([facility]) Respiratory rate 18 /min 18 /min eCW1 ([facility]) Body temperature 96.8 [degF] 96.8 [degF] eCW1 ( [facility]) Systolic blood pressure 98 mm[Hg] 98 mm[Hg] e CW1 ([facility]) Diastolic blood pressure 60 mm[Hg] 60 mm[Hg] eCW1 ([facility]) Body weight 140 [lb_av] 140 [lb_av] eCW1 ([facility]) Body height 65 [in_i] 65 [in_i] eCW1 ([facility]) Body mass index (BMI) [Ratio] 23.29 kg/m2 23.29 kg/m2 W1 ([facility]) Heart rate 93 /min 93 /min eCW1 ([facility]) Respiratory rate 18 /min 18 /min eCW1 ([facility]) Body temperature 97.4 [degF] 97.4 [degF] eCW1 ( [facility]) Systolic blood pressure 122 mm[Hg] 122 mm[Hg] e CW1 ([facility]) Diastolic blood pressure 60 mm[Hg] 60 mm[Hg] eCW1 ([facility]) Body weight 140 [lb_av] 140 [lb_av] eCW1 ([facility]) Body height 65 [in_i] 65 [in_i] eCW1 ([facility]) Body mass index (BMI) [Ratio] 23.29 kg/m2 23.29 kg/m2 eCW1 ([facility]) Heart rate 92 /min 92 /min eCW1 ([facility]) Respiratory rate 18 /min 18 /min eCW1 ([facility]) Body temperature 98.1 [degF] 98.1 [degF] eCW1 ( [facility]) Systolic blood pressure 138 mm[Hg] 138 mm[Hg] e CW1 ([facility]) Diastolic blood pressure 78 mm[Hg] 78 mm[Hg] eCW1 ([facility]) Heart rate 92 /min 92 /min eCW1 ([facility]) Body weight 134 [lb_av] 134 [lb_av] eCW1 ([facility]) Body height 65 [in_i] 65 [in_i] eCW1 ([facility]) Body mass index (BMI) [Ratio] 22.30 kg/m2 22.30 kg/m2 eCW1 ([facility]) Respiratory rate 18 /min 18 /min eCW1 ([facility]) Body temperature 96.5 [degF] 96.5 [degF] eCW1 ( [facility]) Systolic blood pressure 116 mm[Hg] 116 mm[Hg] e CW1 ([facility]) Diastolic blood pressure 60 mm[Hg] 60 mm[Hg] eCW1 ([facility]) Body weight 134 [lb_av] 134 [lb_av] eCW1 ([facility]) Body height 65 [in_i] 65 [in_i] eCW1 ([facility]) Body mass index (BMI) [Ratio] 22.30 kg/m2 22.30 kg/m2 eCW1 ([facility]) Heart rate 101 /min 101 /min eCW1 ([facility]) Respiratory rate 18 /min 18 /min eCW1 ([facility]) Body temperature 97.3 [degF] 97.3 [degF] eCW1 ( [facility]) Systolic blood pressure 120 mm[Hg] 120 mm[Hg] e CW1 ([facility]) Diastolic blood pressure 60 mm[Hg] 60 mm[Hg] eCW1 ([facility]) Body weight 135.4 [lb_av] 135.4 [lb_av] eCW1 ([facility]) Body height 65 [in_i] 65 [in_i] eCW1 ([facility]) Body mass index (BMI) [Ratio] 22.53 kg/m2 22.53 kg/m2 eCW1 ([facility]) Heart rate 93 /min 93 /min eCW1 ([facility]) Respiratory rate 18 /min 18 /min eCW1 ([facility]) Body temperature 98.2 [degF] 98.2 [degF] eCW1 ( [facility]) Systolic blood pressure 122 mm[Hg] 122 mm[Hg] e CW1 ([facility]) Diastolic blood pressure 62 mm[Hg] 62 mm[Hg] eCW1 ([facility]) Body weight 135 [lb_av] 135 [lb_av] eCW1 ([facility]) Body height 65 [in_i] 65 [in_i] eCW1 ([facility]) Body mass index (BMI) [Ratio] 22.46 kg/m2 22.46 kg/m2 eCW1 ([facility]) Heart rate 101 /min 101 /min eCW1 ([facility]) Respiratory rate 20 /min 20 /min eCW1 ([facility]) Body temperature 96 [degF] 96 [degF] eCW1 ([facility]) Systolic blood pressure 120 mm[Hg] 120 mm[Hg] e CW1 ([facility]) Diastolic blood pressure 62 mm[Hg] 62 mm[Hg] eCW1 ([facility]) Systolic blood pressure 130 mm[Hg] 130 mm[Hg] M EDENT ([facility]) Diastolic blood pressure 70 mm[Hg] 70 mm[Hg] MEDENT ([facility]) Body height 65 [in_i] 65 [in_i] [facility] ([facility]) 5'5" Body weight 134.50 [lb_av] 134.50 [lb_av] [facility] Body mass index (BMI) [Ratio] 22.4 kg/m2 22.4 k g/m2 [facility] ([facility]) [place] body weight 125 [lb_av] 125 [lb_av] MEDEN T ([facility]) Body weight 61.009 kg 61.009 kg [facility] ([facility]) Body surface area Derived from formula 1.67 m2 1.67 m2 [facility] ([facility]) Patient Treatment Plan of Care Planned Activity Planned Date Details Description Data Source (s) Vitamin D3 125 MCG (5000 UT) 07/22/2020 12:00:00 AM EDT eCW1 ([facility]) Vitamin D3 125 MCG (5000 UT) 07/22/2020 12:00:00 AM EDT eCW1 ([facility]) Naproxen 375 MG Oral Tablet 07/20/2020 12:00:00 AM EDT eCW1 ([facility]) Naproxen 375 MG Oral Tablet 07/20/2020 12:00:00 AM EDT eCW1 ([facility]) Naproxen 375 MG Oral Tablet 07/20/2020 12:00:00 AM EDT eCW1 ([facility]) Alendronic acid 70 MG Oral Tablet 04/29/2020 12:00:00 AM EST eCW1 ([facility]) Alendronic acid 70 MG Oral Tablet 04/29/2020 12:00:00 AM EST eCW1 ([facility]) Alendronic acid 70 MG Oral Tablet 04/29/2020 12:00:00 AM EST eCW1 ([facility]) Alendronic acid 70 MG Oral Tablet 04/29/2020 12:00:00 AM EST eCW1 ([facility]) Amlodipine 2.5 MG Oral Tablet 04/08/2020 12:00:00 AM EST eCW1 ([facility]) Amlodipine 2.5 MG Oral Tablet 04/08/2020 12:00:00 AM EST eCW1 ([facility]) Amlodipine 2.5 MG Oral Tablet 04/08/2020 12:00:00 AM EST eCW1 ([facility]) Amlodipine 2.5 MG Oral Tablet 04/08/2020 12:00:00 AM EST eCW1 ([facility]) Amlodipine 2.5 MG Oral Tablet 04/08/2020 12:00:00 AM EST eCW1 ([facility]) Amlodipine 2.5 MG Oral Tablet 04/08/2020 12:00:00 AM EST eCW1 ([facility]) Amlodipine 2.5 MG Oral Tablet 04/08/2020 12:00:00 AM EST eCW1 ([facility]) Amlodipine 2.5 MG Oral Tablet 04/08/2020 12:00:00 AM EST eCW1 ([facility]) Amlodipine 2.5 MG Oral Tablet 04/08/2020 12:00:00 AM EST eCW1 ([facility]) Amlodipine 2.5 MG Oral Tablet 04/08/2020 12:00:00 AM EST eCW1 ([facility]) Amlodipine 5 MG Oral Tablet 01/25/2020 12:00:00 AM EST eCW1 ([facility]) Acetaminophen 500 MG Oral Tablet 01/23/2020 12:00:00 AM EST eCW1 ([facility]) Acetaminophen 500 MG Oral Tablet 01/23/2020 12:00:00 AM EST eCW1 ([facility]) Acetaminophen 500 MG Oral Tablet 01/23/2020 12:00:00 AM EST eCW1 ([facility])
--- OUTSIDE RECORDS SUMMARY | 2020-12-27 09:44 | CCD ---
Author Author [facility] Organization [facility] Address Unknown Phone Unavailable Care Team Providers Care Clinical Rehab Liaison Name Role Phone Chelsi Navarrete Unavailable PROBLEMS Type Condition ICD9-CM Code JED19-MP Code Onset Dates Condition S tatus W/U Status Risk SNOMED Code Notes Problem Cigarette nicotine dependence without complication F17.210 Active confirmed 38554466 Problem Macrocytosis without anemia D75.89 Active confirmed 674953544 Problem Vitamin D deficiency E55.9 Active confirmed 27984105 Problem History of TIA (transient ischemic attack) Z86.73 Active confirmed 307695620 Problem Essential hypertension I10 Active confirmed 91820084 Problem Mixed hyperlipidemia E78.2 Active confirmed 817227430 Problem Gastroesophageal reflux dise ase, unspecified whether esophagitis present K21.9 Active confirmed 647691269 ALLERGIES Allergen (clinical drug ingredient) Drug/Non Drug Allergy do cumented on EMR Reaction Allergy Type Onset Date Status Bee Pollen(NDC Code:[address]-35) Hives Drug Allergy Active atorvastatin Atorvastatin Calcium(NDC Code:[address]-33) Vomiting Drug Allergy Active oxycodone Oxycodone HCl(NDC Code:[address]-96) Anaphylaxis Drug All ergy Active morphine Morphine Sulfate(NDC Code:[address]-89) Hives Drug A llergy Active adhesive tape from heart monitor blisters Non Drug Aller gy Active simvastatin Simvastatin(NDC Code:[address]-52) muscle spasms Drug Al lergy Active ENCOUNTERS from 1945 to 2020-12-23 Encounter Location Date Provider Diagnosis [facility] [address] [facility] [phone] [place] [address] Nov, Chelsi Navarrete IMMUNIZATIONS Vaccine Route Administration Date Status COVID-19 dose #2 given elsewhere Unspecified Unknown Apr il 2020 Administered COVID-19 dose #1 given elsewhere Unspecified Unknown Mar ch 2020 Administered Influenza 18 yrs & older Flublok IM Intramuscular Jan 07, 2020 Administered SOCIAL HISTORY Tobacco Use: Social History Observation Description Date Details (start date - stop date) Current Smoker Sex Assigned At : Social History Observation Description Sex Assigned At Unknown Education: Question Answer Notes Level of Education: High School Audit Question Answer Notes Total Score: 2 Interpretation: Alcohol Education Language: Question Answer Notes Languages spoken: Kosovan palauan Presybeterian: Question Answer Notes Presybeterian 13 Shinto Domestic Violence: Question Answer Notes Status: Sexual Hx: Question Answer Notes Had sex in the last 12 months (vaginal, oral, or anal)? No Have you ever had an STD? No Drug and Alcohol Question Answer Notes Total Score: 0 Interpretation: No problems reported Tobacco Use: Question Answer Notes Are you a: current smoker Smoking Cessation Information Given 08/26/2020 Patient counseled on the dangers of tobacco use and urged to quit: 08/26/2020 How many cigarettes a day do you smoke? 5 or less Are you interested in quitting? Ready to quit Counseled the patient on tobacco use, cessation provided REASON FOR REFERRAL No Information VITAL SIGNS No information MEDICATIONS Medication SIG (Take, Route, Frequency, Duration) Notes Start Da te End Date Status Vitamin B12 100 MCG as directed Orally Active Nicotine 21 MG/24HR 1 patch to skin Transdermal Once a day Active Naproxen 375 MG TAKE 1 TABLET BY MOUTH EVERY 12 HOURS WITH FOOD OR MILK NEEDED for 30 Active Centrum Silver - 1 tab Orally Daily Active Vitamin D3 125 MCG (5000 UT) 1 capsule Orally Once a day for 90 day(s) July, Active Acetaminophen Extra Strength 500 MG 2 tablets as needed Orally e very 6 hours Jan, Active Reclast 5 MG/100ML as directed Intravenous Active amLODIPine Besylate 2.5 MG 1 tablet Orally Once a day for 90 Active Calcium 150 MG as directed Orally Ac tive PROCEDURES No Information RESULTS No Results REASON FOR VISIT N/S 11/08/2020 appt MEDICAL (GENERAL) HISTORY Type Description Date Medical History ?history of DC in 2007 Medical History Hx TIA x 2, one week apart, in 2007 Medical History Hyperlipidemia - ASCVD risk 22.6% 09/2019 Medical History Hx Hypertension - BP ok off medication Medical History GERD, dysphagia to solids Medical History Hx ovarian and uterine cancer in 1967 Surgical History Hysterectomy for "uterus and ovary cance r" 1967 Surgical History Cholecystectomy 1969 Surgical History Left knee surgery - not sure what was do ne Surgical History Breast surgery - benign 2013 Surgical History Colonoscopy - Dr. 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 Cabezas 10/2019 Hospitalization History GI bleed 07/2019 Hospitalization History Hemicolectomy 10/2019 Hospitalization History rectal bleeding 01/2020 Goals Section No Information Health Concerns No Information MEDICAL EQUIPMENT No Information MENTAL STATUS No Information FUNCTIONAL STATUS No Information ASSESSMENTS No Information PLAN OF TREATMENT Medication Medication Name Sig Start Date Stop Date amLODIPine Besylate 2.5 MG 1 tablet Orally Once a day for 90 Acetaminophen Extra Strength 500 MG 2 tablets as needed Oral ly every 6 hours Jan, Naproxen 375 MG TAKE 1 TABLET BY MOUTH EVERY 12 HOURS WITH FOOD OR MILK NEEDED for 30 Next Appt Details Provider Name:Robyn Clifton Ositogiselle, 2020-12-27 07:30:00 AM, [address] [facility], , [place], [address], Insurance Providers Payer Name Payer Address Payer Phone Insured Name Patient Relati onship to Insured Coverage Start Date Coverage End Date [employer] GOLD [address] [address] [facility] [phone] JESSIE NETTLES MEDICARE Part A and B [address] [facility] [phone] JESSIE LUZ self
--- OUTSIDE RECORDS SUMMARY | 2020-12-27 09:44 | CCD | Continuity of Care Document ---
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 AUTM [phone] Robyn Owen M.D. AUTM [phone] Problems Active Problems Provider Date Essential hypertension Richard Cabezas M.D. Onset: 0 Social History Type Date Description Comments Sex Unknown ETOH Use Denies alcohol use Tobacco Use Start: Unknown Patient is a current smoker, smo kes every day 5cigs/d Recreational Drug Use Denies Drug Use Allergies, Adverse Reactions, Alerts Active Allergies Reaction Severity Comments Date Oxycodone Difficulty breathing 020 Morphine Difficulty breathing 020 Bee Sting uses epi pen 09/15/2019 Codeine Facial swelling, Swelling of eyelid 09/15/2019 States She Has An Allergy To Most Pain Meds 09/15/2019 Medications Active Medications SIG Qnty Indications Ordering Provide r Date Milk Of Magnesia 1200mg/15ML Suspe nsion take 45 milliliters by mouth as directed on colonoscopy prep sheet. 355ml D12.2 Delta Quigley MD 09/29/2020 Miralax 17GM/Scoop Powder use as directed see dr quigley colon preparation instructions 510gm D12.2 J Luis Quigley MD 09/29/2020 Atenolol 25mg Tablets 1tab qd Unknown Vitamin D qd Unknown Centrum Silver Tablets 1tab qd Unknown Immunizations Description No Information Available Vital Signs Date Vital Result Comment 09/29/2020 3:11pm BP Systolic 134 mmHg BP Diastolic 68 mmHg Height 64 inches 5'4" Weight 142.00 lb BMI (Body Mass Index) 24.4 kg/m2 [place] Body Weight 120 lb Weight 64.411 kg BSA (Body Surface Area) 1.69 m2 12/01/2019 9:14am BP Systolic 130 mmHg BP Diastolic 70 mmHg Height 65 inches 5'5" Weight 134.50 lb BMI (Body Mass Index) 22.4 kg/m2 [place] Body Weight 125 lb Weight 61.009 kg BSA (Body Surface Area) 1.67 m2 Results Description No Information Available Procedures Date Code Description Status 09/29/2020 91331 Office/Outpatient Established Mo d MDM 30-39 Min Completed Medical Devices Description No Information Available Encounters Type Date Location Provider Dx Diagnosis Office Visit 09/29/2020 3:00p [facility] ctice Delta Quigley MD D12.2 Benign neoplasm of ascending colon Assessments Date Code Description Provider 09/29/2020 D12.2 Benign neoplasm of ascending col on Delta Quigley MD Plan of Treatment 09/29/2020 - Delta Quigley MD* D12.2 Benign neoplasm of ascending colon * * New Medication:* Milk Of Magnesia 1200 mg/15ML * Miralax 17 GM/Scoop * New Orders:* Colonoscopy, Ordered: 09/29/20 * Recommendations:* colonoscopy for follow up malignant/HGD polyp/lesion colon. s/p resection. Her prep was suboptimal, she needs repeat Functional Status Description No Information Available Mental Status Description No Information Available Referrals Description No Information Available
--- OUTSIDE RECORDS SUMMARY | 2020-12-27 09:44 | CCD | Continuity of Care Document ---
Author Author Chen QUIGLEY MD Organization Unknown Address [address] [place] [address] Phone [phone] Care Team Providers Care Display Manager Name Role Phone Julian Johnston MD AUTM [phone] Delta Quigley M.D. AUTM [phone] Robyn Owen M.D. AUTM [phone] Problems Active Problems Provider Date Essential hypertension [...] lb BMI (Body Mass Index) 24.4 kg/m2 [place] Body Weight 120 lb Weight 64.411 kg BSA (Body Surface Area) 1.69 m2 12/01/2019 9:14am BP Systolic 130 mmHg BP Diastolic 70 mmHg Height 65 inches 5'5" Weight 134.50 lb BMI (Body Mass Index) 22.4 kg/m2 [place] Body Weight 125 lb Weight 61.009 kg BSA (Body Surface Area) 1.67 m2 Results Description No Information Available Procedures Description No Information Available Medical Devices Description No Information Available Encounters Description No Information Available Assessments Date Code Description Provider 09/29/2020 D12.2 [...]
[2020-12-27 10:13] LABS: BLOOD UREA NITROGEN 6 MG/DL (7-18); CALCIUM LEVEL 8.5 MG/DL (8.8-10.2); CARBON DIOXIDE LEVEL 25 MEQ/L (21-32); CHLORIDE LEVEL 103 MEQ/L (98-107); CK-MB VALUE MASS < 1.0 NG/ML (<3.6); CPK CREATINE PHOSPHOKINASE 27 U/L (26-192); GLOMERULAR FILTRATION RATE > 60.0 (>39); GLUCOSE, FASTING 91 MG/DL (70-100); POTASSIUM SERUM 3.6 MEQ/L (3.5-5.1); SODIUM LEVEL 136 MEQ/L (136-145); THYROID STIMULATING HORMONE 0.759 uIU/ML (0.358-3.740); TROPONIN I < 0.02 NG/ML (< 0.10)
--- NOTE | 2020-12-27 10:16 | REPVR ---
PROCEDURE INFORMATION: Exam: CT Head Without Contrast Exam date and time: 12/27/2020 9:33 AM Age: 75 years old Clinical indication: Pain; Headache; Additional info: Fall injury TECHNIQUE: Imaging protocol: Computed tomography of the head without contrast. Radiation optimization: All CT scans at this facility use at least one of these dose optimization techniques: automated exposure control; mA and/or kV adjustment per patient size (includes targeted exams where dose is matched to clinical indication); or iterative reconstruction. COMPARISON: CT Head without contrast 01/22/2020 8:55 AM FINDINGS: Brain: There is no acute intracranial hemorrhage or mass effect. Mild to moderate diffuse volume loss is within the range of normal for patient age. There are small vessel ischemic changes within the periventricular and subcortical white matter, but the normal joseph/white matter delineation is maintained. Cerebral ventricles: No ventriculomegaly. Paranasal sinuses: Visualized sinuses are unremarkable. No fluid levels. Mastoid air cells: Visualized mastoid air cells are well aerated. Bones/joints: Unremarkable. No acute fracture. Soft tissues: Unremarkable. IMPRESSION: No acute hemorrhage or calvarial fracture. Electronically signed by: Reanna Caruso On 12/27/2020 10:16:03 AM
--- NOTE | 2020-12-27 10:17 | ECGEPIP ---
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
--- NOTE | 2020-12-27 10:19 | REPVR ---
PROCEDURE INFORMATION: Exam: CT Cervical Spine Without Contrast Exam date and time: 12/27/2020 9:33 AM Age: 75 years old Clinical indication: Neck pain; Additional info: Fall injury TECHNIQUE: Imaging protocol: Computed tomography images of the cervical spine without contrast. Radiation optimization: All CT scans at this facility use at least one of these dose optimization techniques: automated exposure control; mA and/or kV adjustment per patient size (includes targeted exams where dose is matched to clinical indication); or iterative reconstruction. COMPARISON: None available. FINDINGS: Bones/joints: No acute fracture. Normal alignment. Discs/Spinal canal/Neural foramina: There is degenerative disc disease and spondylosis. Changes contribute to multilevel severe neural foraminal narrowing. Lungs: Lung apices are normal. Soft tissues: Unremarkable. IMPRESSION: No acute fracture or listhesis. Electronically signed by: Reanna Caruso On 12/27/2020 10:18:57 AM
[2020-12-27 10:55] LABS: MAGNESIUM LEVEL 2.2 MG/DL (1.8-2.4)
--- NOTE | 2020-12-27 11:29 | REP ---
INDICATION: Syncope/near-syncope. COMPARISON: 10/13/2019. TECHNIQUE: Single portable AP view of the chest was performed. FINDINGS: There is no acute infiltrate or pulmonary edema. Lungs are clear. The heart is not significantly enlarged. There is calcification of the thoracic aorta. The mediastinal silhouette is otherwise unremarkable. The visualized osseous structures are intact. IMPRESSION: No acute pulmonary disease. <Electronically signed by Riccardo Jones > 12/27/20 1126
--- NOTE | 2020-12-27 11:31 | REP ---
INDICATION: Pain/trauma. COMPARISON: None. TECHNIQUE: Five views lumbosacral spine. FINDINGS: There is no compression fracture or malalignment. There is normal lumbar lordosis. There is mild diffuse spurring. There is very mild diffuse disc space narrowing with associated subchondral sclerosis. There is sclerosis and spurring at the posterior facet joints of L4-5 and L5-S1. The posterior elements are intact. There is slight curvature toward the left. IMPRESSION: Diffuse degenerative changes without fracture or dislocation. <Electronically signed by Riccardo Jones > 12/27/20 [id number]
--- NOTE | 2020-12-27 12:30 | HPEPDOC ---
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 This morning while stepping into the bathtub she reported loosing consciousness and falling onto her back. She did not use the toilet prior to this. She could not recollect how she had lost consciousness. She denied prodromal symptoms including nausea, vomiting, diaphoresis, palpitations, headache, and dizziness. She denied incontinence of her bladder and bowels. Reports having mild confusion for a few seconds to a minute because she does not know why she lost consciousness, but is fully aware of her surroundings. She reported having 5 episodes in the last 2 weeks and similar nature. Of note, she was seen in the hospital in 2019 with complaints of dizziness, and reports that this is different and there was no dizziness during these episode. Of note, she endorses a 10 pound weight loss in the last 1 month. She has a poor appetite. At this junction, she is complaining of lower lumbar pain attributed to her fall. Otherwise, she denies headaches, blurry vision, chest pain, shortness of breath, palpitations, abdominal pain, nausea, vomiting, problems with urination and bowel movements. She also denied saddle area numbness and incontinence. She denies focal weakness or sensory changes. PAST MEDICAL HISTORY: 1. Hypertension PAST SURGICAL HISTORY: 1. Hysterectomy 2. Right hemicolectomy 3. Cholecystectomy 4. Knee surgery SOCIAL HISTORY: Lives alone at home. She smokes 5 cigarettes/day. She drinks 2 beers per day. She denies recreational drug use. FAMILY HISTORY: Unaware of her family history ALLERGIES: Please see below. REVIEW OF SYSTEMS: 10 point review of system was negative except for what is noted in the HPI HOME MEDICATIONS: Please see below. PHYSICAL EXAMINATION: VITAL SIGNS: Please see below General: Lying in bed, no acute distress Head/Neck/Throat: Trachea midline, mucous membranes moist Eyes: Sclera anicteric, PERRLA Thorax: Normal respiratory effort on room air, lungs clear to auscultation bilaterally, no wheezes/rales/rhonchi Cardiovascular: Normal rate, regular rhythm, normal S1, S2; no S3, S4, rubs/gallops/murmurs Abdomen: Bowel sounds present, soft/nontender/nondistended Genitourinary: No CVA tenderness, no Barry in place Musculoskeletal: Moving all extremities, no edema Skin: Warm, dry Neurologic: AAOx3. Cranial nerves II to XII intact. Strength in the upper and lower extremities is 5/5. Sensation to gross touch in the upper lower extremities intact. Cerebellar examination including slro-gj-pzrh, and qxwqmt-py-posg intact. Babinski's negative. Reflex 2+ at the patellar as well as biceps LABORATORY DATA: See below. IMAGING: Please see imaging section MICROBIOLOGY: Please see below. ASSESSMENT/PLAN: #Syncope -Possibly 2/2 to orthostatic hypotension vs arrhythmia vs vasovagal -Obtain orthostatic signs. -Monitor on telemetry, obtain echocardiogram to rule out valvular and ventricular pathology -We will ask PT to evaluate patient to assess for vertigo -Follow-up on MRI, check tsh/free t4, b12 #Status post fall -Complaining of back pain. Imaging did not reveal fracture or dislocation of the lumbar sacral spine -Lidocaine patch #Hypertension -c/w Amlodipine #Nicotine abuse -education; nicotine patch #Etoh use -Daily drinker. CIWA protocol. #DVT prophylaxis -Lovenox Vital Signs Vital Signs Date Time Temp Pulse Resp B/P (MAP) Pulse Ox O2 Delivery O2 Flow Rate FiO2 12/27/20 11:34 91 16 137/62 (87) 97 Room Air 12/27/20 09:01 97.6 Laboratory Data Labs 24H Laboratory Tests 2 12/27/20 09:06: Immature Granulocyte % (Auto) 0.3, Neutrophils (%) (Auto) 65.3, Lymphocytes (%) (Auto) 24.2, Monocytes (%) (Auto) 9.0H, Eosinophils (%) (Auto) 0.6, Basophils (%) (Auto) 0.6, Neutrophils # (Auto) 4.6, Lymphocytes # (Auto) 1.7, Monocytes # (Auto) 0.6, Eosinophils # (Auto) 0.0, Basophils # (Auto) 0.0, Nucleated Red Blood Cells % (auto) 0.0, Anion Gap 8, Glomerular Filtration Rate > 60.0, Calcium Level 8.5L, Magnesium Level 2.2, Total Creatine Kinase 27, Creatine Kinase MB < 1.0, Creatine Kinase MB Relative Index 3.70, Troponin I < 0.02, Thyr oid Stimulating Hormone (TSH) 0.759 CBC/BMP Laboratory Tests 12/27/20 09:06 Home Medications Scheduled Amlodipine Besylate (Amlodipine Besylate) 2.5 Mg Tablet, 2.5 MG PO DAILY Multivitamins (Thera M Plus Tablet) 1 Each Tablet, 1 TAB PO DAILY Scheduled PRN Acetaminophen (Tylenol Extra Strength) 500 Mg Tablet, 1,000 MG PO Q6H PRN for PAIN Allergies Coded Allergies: bee pollen (Verified Allergy, Severe, stops breathing, 12/27/20) codeine (Verified Allergy, Severe, stopped breathing , 12/27/20) morphine (Verified Allergy, Severe, stopped breathing, 12/27/20) oxycodone (Verified Allergy, Severe, stopped breathing, 12/27/20) atorvastatin (Verified Allergy, Intermediate, hives, 12/27/20) alendronate sodium (Verified Allergy, Unknown, gives her vomiting and diarrhra, 12/27/20) A-FIB/CHADSVASC A-FIB History Current/History of A-Fib/PAF?: No ALEX ARIAS M.D. Dec 27, 2020 12:30
--- OUTSIDE RECORDS SUMMARY | 2020-12-27 12:43 | CCD ---
Author Author [facility] Organization [facility] Address Unknown Phone Unavailable Care Team Providers Care Wearing Apparel Folder Name Role Phone DEREK, CLEOPATRA FARR Unavailable [...] is protected by Article 27-F of the [facility] [place] Public Health law. If you continue you may have access to information: Regarding HIV / AIDS; Provided by facilities licensed or operated by the [facility] [place] Office of Mental Health; or Provided by the [facility] [place] Office for People With Developmental Disabilities. If such information is present, then the following [facility] [place] mandated warning applies: This information has been [...] law may result in a fine or assisted sentence or both. A general authorization for the release of medical or other information is NOT sufficient authorization for further disc losure. Encounters Encounter Providers Location Date Indications Data Source(s ) [place] [address] [address] 12/09/2020 12:00:00 AM EDT eCW1 (Critical access hospital) Outpatient Attender: CLEOPATRA Goldberg/Arnoldo/Igor/Rene kearney 09/29/2020 03:00:00 PM EDT MEDENT ([facility], ) [place] [address] [address] 08/27/2020 12:00:00 AM EDT eCW1 ([facility]) [place] [address] [address] 08/26/2020 12:00:00 AM EDT eCW1 ([facility]) [place] [address] [address] 07/27/2020 12:00:00 AM EDT eCW1 ([facility]) [place] [address] [address] 07/22/2020 12:00:00 AM EDT eCW1 ([facility]) [place] [address] [address] 07/20/2020 12:00:00 AM EDT eCW1 ([facility]) [place] [address] [address] 07/19/2020 12:00:00 AM EDT eCW1 ([facility]) [place] [address] [address] 07/08/2020 12:00:00 AM EDT eCW1 ([facility]) [place] [address] [address] 06/24/2020 12:00:00 AM EDT eCW1 ([facility]) [place] [address] [address] 06/07/2020 12:00:00 AM EDT eCW1 ([facility]) [place] [address] [address] 05/20/2020 12:00:00 AM EST eCW1 ([facility]) [place] [address] [address] 04/29/2020 12:00:00 AM EST eCW1 ([facility]) [place] [address] [address] 04/21/2020 12:00:00 AM EST eCW1 ([facility]) [place] [address] [address] 04/21/2020 12:00:00 AM EST eCW1 ([facility]) [place] [address] [address] 04/13/2020 12:00:00 AM EST [facility]CW1 ([facility]) [place] [address] [address] 04/08/2020 12:00:00 AM EST eCW1 ([facility]) [place] [address] [address] 03/31/2020 12:00:00 AM EST eCW1 ([facility]) Outpatient CHRISTIANO 03/18/2020 10:16:27 AM EST [facility] 06/2020 10:29:02 AM EST [facility] [place] [address] [address] 03/10/2020 12:00:00 AM EST eCW1 ([facility]) [place] [address] [address] 02/20/2020 12:00:00 AM EST eCW1 ([facility]) Outpatient Referrer: Allyson DOMINGUEZLUCILLE 03/2019 12:00:00 AM EST [facility] Outpatient [address] [address] 02/02/2020 12:00:00 AM EST eCW1 ([facility]) Unknown [address] [facility] [place] [address] 01/26/2020 12:00:00 AM EST eCW1 ([facility]) Unknown [address] [facility] [place] [address] 01/25/2020 12:00:00 AM EST eCW1 (Critical access hospital) [place] [address] [address] 01/08/2020 12:00:00 AM EDT eCW1 (Critical access hospital) [place] [address] [address] 01/07/2020 12:00:00 AM EDT eCW1 (Critical access hospital) Immunizations Vaccine Date Status Description Data Source(s) COVID-19 dose #2 given elsewhere Unspecified 06/15/2020 09:3 3:00 AM EDT completed eCW1 (Critical access hospital) COVID-19 dose #2 given elsewhere Unspecified 06/15/2020 09:3 3:00 AM EDT completed eCW1 (Critical access hospital) COVID-19 dose #2 given elsewhere Unspecified 06/15/2020 09:3 3:00 AM EDT completed eCW1 (Critical access hospital) COVID-19 dose #2 given elsewhere Unspecified 06/15/2020 09:3 3:00 AM EDT completed eCW1 (Critical access hospital) COVID-19 dose #2 given elsewhere Unspecified 06/15/2020 09:3 3:00 AM EDT completed eCW1 (Critical access hospital) COVID-19 dose #2 given elsewhere Unspecified 06/15/2020 09:3 3:00 AM EDT completed eCW1 (Critical access hospital) COVID-19 dose #2 given elsewhere Unspecified 06/15/2020 09:3 3:00 AM EDT completed eCW1 (Critical access hospital) COVID-19 dose #2 given elsewhere Unspecified 06/15/2020 09:3 3:00 AM EDT completed eCW1 (Critical access hospital) COVID-19 VACCINE Moderna 06/12/2020 12:00:00 AM EDT completed [facility] Vaccine Series Complete: YESThis Data wa s Submitted to [facility] Via [employer]. COVID-19 dose #1 given elsewhere Unspecified 05/24/2020 09:3 3:00 AM EDT completed eCW1 (Critical access hospital) COVID-19 dose #1 given elsewhere Unspecified 05/24/2020 09:3 3:00 AM EDT completed eCW1 (Critical access hospital) COVID-19 dose #1 given elsewhere Unspecified 05/24/2020 09:3 3:00 AM EDT completed eCW1 (Critical access hospital) COVID-19 dose #1 given elsewhere Unspecified 05/24/2020 09:3 3:00 AM EDT completed eCW1 (Critical access hospital) COVID-19 dose #1 given elsewhere Unspecified 05/24/2020 09:3 3:00 AM EDT completed eCW1 (Critical access hospital) COVID-19 dose #1 given elsewhere Unspecified 05/24/2020 09:3 3:00 AM EDT completed eCW1 (Critical access hospital) COVID-19 dose #1 given elsewhere Unspecified 05/24/2020 09:3 3:00 AM EDT completed eCW1 (Critical access hospital) COVID-19 dose #1 given elsewhere Unspecified 05/24/2020 09:3 3:00 AM EDT completed eCW1 (Critical access hospital) COVID-19 VACCINE Moderna 05/15/2020 12:00:00 AM EST completed [facility] Vaccine Series Complete: NOThis Data was Submitted to [facility] Via [employer]. influenza, recombinant, quadrIvalent,injectable, prese rvative free 01/07/2020 03:18:00 PM EDT completed eCW1 ([facility]) influenza, recombinant, quadrIvalent,injectable, prese rvative free 01/07/2020 03:18:00 PM EDT completed eCW1 ([facility]) influenza, recombinant, quadrIvalent,injectable, prese rvative free 01/07/2020 03:18:00 PM EDT completed eCW1 ([facility]) influenza, recombinant, quadrIvalent,injectable, prese rvative free 01/07/2020 03:18:00 PM EDT completed eCW1 ([facility]) influenza, recombinant, quadrIvalent,injectable, prese rvative free 01/07/2020 03:18:00 PM EDT completed eCW1 ([facility]) influenza, recombinant, quadrIvalent,injectable, prese rvative free 01/07/2020 03:18:00 PM EDT completed eCW1 ([facility]) influenza, recombinant, quadrIvalent,injectable, prese rvative free 01/07/2020 03:18:00 PM EDT completed eCW1 ([facility]) influenza, recombinant, quadrIvalent,injectable, prese rvative free 01/07/2020 03:18:00 PM EDT completed eCW1 ([facility]) influenza, recombinant, quadrIvalent,injectable, prese rvative free 01/07/2020 03:18:00 PM EDT completed eCW1 ([facility]) influenza, recombinant, quadrIvalent,injectable, prese rvative free 01/07/2020 03:18:00 PM EDT completed eCW1 ([facility]) influenza, recombinant, quadrIvalent,injectable, prese rvative free 01/07/2020 03:18:00 PM EDT completed eCW1 ([facility]) influenza, recombinant, quadrIvalent,injectable, prese rvative free 01/07/2020 03:18:00 PM EDT completed eCW1 ([facility]) influenza, recombinant, quadrIvalent,injectable, prese rvative free 01/07/2020 03:18:00 PM EDT completed eCW1 ([facility]) influenza, recombinant, quadrIvalent,injectable, prese rvative free 01/07/2020 03:18:00 PM EDT completed eCW1 ([facility]) influenza, recombinant, quadrIvalent,injectable, prese rvative free 01/07/2020 03:18:00 PM EDT completed eCW1 ([facility]) influenza, recombinant, quadrIvalent,injectable, prese rvative free 01/07/2020 03:18:00 PM EDT completed eCW1 ([facility]) influenza, recombinant, quadrIvalent,injectable, prese rvative free 01/07/2020 03:18:00 PM EDT completed eCW1 ([facility]) influenza, recombinant, quadrIvalent,injectable, prese rvative free 01/07/2020 03:18:00 PM EDT completed eCW1 ([facility]) influenza, recombinant, quadrIvalent,injectable, prese rvative free 01/07/2020 03:18:00 PM EDT completed eCW1 ([facility]) influenza, recombinant, quadrIvalent,injectable, prese rvative free 01/07/2020 03:18:00 PM EDT completed eCW1 ([facility]) influenza, recombinant, quadrIvalent,injectable, prese rvative free 01/07/2020 03:18:00 PM EDT completed eCW1 ([facility]) influenza, recombinant, quadrIvalent,injectable, prese rvative free 01/07/2020 03:18:00 PM EDT completed eCW1 ([facility]) influenza, recombinant, quadrIvalent,injectable, prese rvative free 01/07/2020 03:18:00 PM EDT completed eCW1 ([facility]) influenza, recombinant, quadrIvalent,injectable, prese rvative free 01/07/2020 03:18:00 PM EDT completed eCW1 ([facility]) Medications Medication Brand Name Start Date Product Form Dose Route Admi nistrative Instructions Pharmacy Instructions Status Indications Reaction Description Data Source(s) Magnesium Hydroxide 80 MG/ML Oral Suspension Milk Of Magnesi a 09/29/2020 12:00:00 AM EDT ORAL active M EDENT ([facility], ) POLYETHYLENE GLYCOL 3350 142 MG/ML Oral Solution [Miralax] M iralax 09/29/2020 12:00:00 AM EDT active DENNIS ([facility], ) Vitamin D3 125 MCG (5000 UT) Vitamin D3 125 MCG (5000 UT) 12:00:00 AM EDT 1.0 {capsule} active Vitamin D3 125 MCG (5000 UT) eCW1 ([facility]) Vitamin D3 125 MCG (5000 UT) Vitamin D3 125 MCG (5000 UT) 12:00:00 AM EDT 1.0 {capsule} active Vitamin D3 125 MCG (5000 UT) eCW1 ([facility]) Vitamin D3 125 MCG (5000 UT) Vitamin D3 125 MCG (5000 UT) 12:00:00 AM EDT 1.0 {capsule} active Vitamin D3 125 MCG (5000 UT) eCW1 ([facility]) Vitamin D3 125 MCG (5000 UT) Vitamin D3 125 MCG (5000 UT) 12:00:00 AM EDT 1.0 {capsule} active Vitamin D3 125 MCG (5000 UT) eCW1 ([facility]) Vitamin D3 125 MCG (5000 UT) Vitamin D3 125 MCG (5000 UT) 12:00:00 AM EDT 1.0 {capsule} active Vitamin D3 125 MCG (5000 UT) eCW1 ([facility]) Naproxen 375 MG Oral Tablet Naproxen 375 MG 07/20/2020 12:00:00 AM EDT active Naproxen 375 MG eCW1 ([facility]) Naproxen 375 MG Oral Tablet Naproxen 375 MG 07/20/2020 12:00:00 AM EDT active Naproxen 375 MG eCW1 ([facility]) Naproxen 375 MG Oral Tablet Naproxen 375 MG 07/20/2020 12:00:00 AM EDT active Naproxen 375 MG eCW1 ([facility]) Alendronic acid 70 MG Oral Tablet Alendronate Sodium 7 0 MG Alendronate Sodium 70 MG 04/29/2020 12:00:00 AM EST active Alendronate Sodium 70 MG eCW1 ([facility]) Alendronic acid 70 MG Oral Tablet Alendronate Sodium 7 0 MG Alendronate Sodium 70 MG 04/29/2020 12:00:00 AM EST active Alendronate Sodium 70 MG eCW1 ([facility]) Alendronic acid 70 MG Oral Tablet Alendronate Sodium 7 0 MG Alendronate Sodium 70 MG 04/29/2020 12:00:00 AM EST active Alendronate Sodium 70 MG eCW1 ([facility]) Alendronic acid 70 MG Oral Tablet Alendronate Sodium 7 0 MG Alendronate Sodium 70 MG 04/29/2020 12:00:00 AM EST active Alendronate Sodium 70 MG eCW1 ([facility]) Amlodipine 2.5 MG Oral Tablet AmLODIPine Besylate 2.5 MG AmLODIPine Besylate 2.5 MG 04/08/2020 12:00:00 AM EST 1.0 {tablet} activ e AmLODIPine Besylate 2.5 MG eCW1 ([facility]) Amlodipine 2.5 MG Oral Tablet AmLODIPine Besylate 2.5 MG AmLODIPine Besylate 2.5 MG 04/08/2020 12:00:00 AM EST 1.0 {tablet} activ e AmLODIPine Besylate 2.5 MG eCW1 ([facility]) Amlodipine 2.5 MG Oral Tablet AmLODIPine Besylate 2.5 MG AmLODIPine Besylate 2.5 MG 04/08/2020 12:00:00 AM EST 1.0 {tablet} activ e AmLODIPine Besylate 2.5 MG eCW1 ([facility]) Amlodipine 2.5 MG Oral Tablet AmLODIPine Besylate 2.5 MG AmLODIPine Besylate 2.5 MG 04/08/2020 12:00:00 AM EST 1.0 {tablet} activ e AmLODIPine Besylate 2.5 MG eCW1 ([facility]) Amlodipine 2.5 MG Oral Tablet amLODIPine Besylate 2.5 MG amLODIPine Besylate 2.5 MG 04/08/2020 12:00:00 AM EST 1.0 {tablet} activ e amLODIPine Besylate 2.5 MG eCW1 ([facility]) Amlodipine 2.5 MG Oral Tablet AmLODIPine Besylate 2.5 MG AmLODIPine Besylate 2.5 MG 04/08/2020 12:00:00 AM EST 1.0 {tablet} activ e AmLODIPine Besylate 2.5 MG eCW1 ([facility]) Amlodipine 2.5 MG Oral Tablet AmLODIPine Besylate 2.5 MG AmLODIPine Besylate 2.5 MG 04/08/2020 12:00:00 AM EST 1.0 {tablet} activ e AmLODIPine Besylate 2.5 MG eCW1 ([facility]) Amlodipine 2.5 MG Oral Tablet AmLODIPine Besylate 2.5 MG AmLODIPine Besylate 2.5 MG 04/08/2020 12:00:00 AM EST 1.0 {tablet} activ e AmLODIPine Besylate 2.5 MG eCW1 ([facility]) Amlodipine 2.5 MG Oral Tablet AmLODIPine Besylate 2.5 MG AmLODIPine Besylate 2.5 MG 04/08/2020 12:00:00 AM EST 1.0 {tablet} activ e AmLODIPine Besylate 2.5 MG eCW1 ([facility]) Amlodipine 2.5 MG Oral Tablet AmLODIPine Besylate 2.5 MG AmLODIPine Besylate 2.5 MG 04/08/2020 12:00:00 AM EST 1.0 {tablet} activ e AmLODIPine Besylate 2.5 MG eCW1 ([facility]) Amlodipine 2.5 MG Oral Tablet AmLODIPine Besylate 2.5 MG AmLODIPine Besylate 2.5 MG 04/08/2020 12:00:00 AM EST 1.0 {tablet} activ e AmLODIPine Besylate 2.5 MG eCW1 ([facility]) Amlodipine 2.5 MG Oral Tablet AmLODIPine Besylate 2.5 MG AmLODIPine Besylate 2.5 MG 04/08/2020 12:00:00 AM EST 1.0 {tablet} activ e AmLODIPine Besylate 2.5 MG eCW1 ([facility]) Amlodipine 2.5 MG Oral Tablet AmLODIPine Besylate 2.5 MG AmLODIPine Besylate 2.5 MG 04/08/2020 12:00:00 AM EST 1.0 {tablet} activ e AmLODIPine Besylate 2.5 MG eCW1 ([facility]) Amlodipine 2.5 MG Oral Tablet amLODIPine Besylate 2.5 MG amLODIPine Besylate 2.5 MG 04/08/2020 12:00:00 AM EST 1.0 {tablet} activ e amLODIPine Besylate 2.5 MG eCW1 ([facility]) Amlodipine 2.5 MG Oral Tablet AmLODIPine Besylate 2.5 MG AmLODIPine Besylate 2.5 MG 04/08/2020 12:00:00 AM EST 1.0 {tablet} activ e AmLODIPine Besylate 2.5 MG eCW1 ([facility]) Amlodipine 5 MG Oral Tablet AmLODIPine Besylate 5 MG AmLODIP ine Besylate 5 MG 01/25/2020 12:00:00 AM EST 1.0 {tablet} active AmLODIPine Besylate 5 MG eCW1 ([facility]) Amlodipine 5 MG Oral Tablet AmLODIPine Besylate 5 MG AmLODIP ine Besylate 5 MG 01/25/2020 12:00:00 AM EST 1.0 {tablet} active AmLODIPine Besylate 5 MG eCW1 ([facility]) Amlodipine 5 MG Oral Tablet AmLODIPine Besylate 5 MG AmLODIP ine Besylate 5 MG 01/25/2020 12:00:00 AM EST 1.0 {tablet} active AmLODIPine Besylate 5 MG eCW1 ([facility]) Amlodipine 5 MG Oral Tablet AmLODIPine Besylate 5 MG AmLODIP ine Besylate 5 MG 01/25/2020 12:00:00 AM EST 1.0 {tablet} active AmLODIPine Besylate 5 MG eCW1 ([facility]) Amlodipine 5 MG Oral Tablet AmLODIPine Besylate 5 MG AmLODIP ine Besylate 5 MG 01/25/2020 12:00:00 AM EST 1.0 {tablet} active AmLODIPine Besylate 5 MG eCW1 ([facility]) Amlodipine 5 MG Oral Tablet AmLODIPine Besylate 5 MG AmLODIP ine Besylate 5 MG 01/25/2020 12:00:00 AM EST 1.0 {tablet} active AmLODIPine Besylate 5 MG eCW1 ([facility]) Acetaminophen 500 MG Oral Tablet Acetaminophen Extra S trength 500 MG Acetaminophen Extra Strength 500 MG 01/23/2020 12:00:00 AM EST 2.0 {tablets_as_needed} active Acetaminophe n Extra Strength 500 MG eCW1 ([facility]) Acetaminophen 500 MG Oral Tablet Acetaminophen Extra S trength 500 MG Acetaminophen Extra Strength 500 MG 01/23/2020 12:00:00 AM EST 2.0 {tablets_as_needed} active Acetaminophe n Extra Strength 500 MG eCW1 ([facility]) Acetaminophen 500 MG Oral Tablet Acetaminophen Extra S trength 500 MG Acetaminophen Extra Strength 500 MG 01/23/2020 12:00:00 AM EST 2.0 {tablets_as_needed} active Acetaminophe n Extra Strength 500 MG eCW1 ([facility]) Acetaminophen 500 MG Oral Tablet Acetaminophen Extra S trength 500 MG Acetaminophen Extra Strength 500 MG 01/23/2020 12:00:00 AM EST 2.0 {tablets_as_needed} active Acetaminophe n Extra Strength 500 MG eCW1 ([facility]) Acetaminophen 500 MG Oral Tablet Acetaminophen Extra S trength 500 MG Acetaminophen Extra Strength 500 MG 01/23/2020 12:00:00 AM EST 2.0 {tablets_as_needed} active Acetaminophe n Extra Strength 500 MG eCW1 ([facility]) Acetaminophen 500 MG Oral Tablet Acetaminophen Extra S trength 500 MG Acetaminophen Extra Strength 500 MG 01/23/2020 12:00:00 AM EST 2.0 {tablets_as_needed} active Acetaminophe n Extra Strength 500 MG eCW1 ([facility]) Acetaminophen 500 MG Oral Tablet Acetaminophen Extra S trength 500 MG Acetaminophen Extra Strength 500 MG 01/23/2020 12:00:00 AM EST 2.0 {tablets_as_needed} active Acetaminophe n Extra Strength 500 MG eCW1 ([facility]) Acetaminophen 500 MG Oral Tablet Acetaminophen Extra S trength 500 MG Acetaminophen Extra Strength 500 MG 01/23/2020 12:00:00 AM EST 2.0 {tablets_as_needed} active Acetaminophe n Extra Strength 500 MG eCW1 ([facility]) Acetaminophen 500 MG Oral Tablet Acetaminophen Extra S trength 500 MG Acetaminophen Extra Strength 500 MG 01/23/2020 12:00:00 AM EST 2.0 {tablets_as_needed} active Acetaminophe n Extra Strength 500 MG eCW1 ([facility]) Acetaminophen 500 MG Oral Tablet Acetaminophen Extra S trength 500 MG Acetaminophen Extra Strength 500 MG 01/23/2020 12:00:00 AM EST 2.0 {tablets_as_needed} active Acetaminophe n Extra Strength 500 MG eCW1 ([facility]) Acetaminophen 500 MG Oral Tablet Acetaminophen Extra S trength 500 MG Acetaminophen Extra Strength 500 MG 01/23/2020 12:00:00 AM EST 2.0 {tablets_as_needed} active Acetaminophe n Extra Strength 500 MG eCW1 ([facility]) Acetaminophen 500 MG Oral Tablet Acetaminophen Extra S trength 500 MG Acetaminophen Extra Strength 500 MG 01/23/2020 12:00:00 AM EST 2.0 {tablets_as_needed} active Acetaminophe n Extra Strength 500 MG eCW1 ([facility]) Acetaminophen 500 MG Oral Tablet Acetaminophen Extra S trength 500 MG Acetaminophen Extra Strength 500 MG 01/23/2020 12:00:00 AM EST 2.0 {tablets_as_needed} active Acetaminophe n Extra Strength 500 MG eCW1 ([facility]) Acetaminophen 500 MG Oral Tablet Acetaminophen Extra S trength 500 MG Acetaminophen Extra Strength 500 MG 01/23/2020 12:00:00 AM EST 2.0 {tablets_as_needed} active Acetaminophe n Extra Strength 500 MG eCW1 ([facility]) Acetaminophen 500 MG Oral Tablet Acetaminophen Extra S trength 500 MG Acetaminophen Extra Strength 500 MG 01/23/2020 12:00:00 AM EST 2.0 {tablets_as_needed} active Acetaminophe n Extra Strength 500 MG eCW1 ([facility]) Acetaminophen 500 MG Oral Tablet Acetaminophen Extra S trength 500 MG Acetaminophen Extra Strength 500 MG 01/23/2020 12:00:00 AM EST 2.0 {tablets_as_needed} active Acetaminophe n Extra Strength 500 MG eCW1 ([facility]) Acetaminophen 500 MG Oral Tablet Acetaminophen Extra S trength 500 MG Acetaminophen Extra Strength 500 MG 01/23/2020 12:00:00 AM EST 2.0 {tablets_as_needed} active Acetaminophe n Extra Strength 500 MG eCW1 ([facility]) Acetaminophen 500 MG Oral Tablet Acetaminophen Extra S trength 500 MG Acetaminophen Extra Strength 500 MG 01/23/2020 12:00:00 AM EST 2.0 {tablets_as_needed} active Acetaminophe n Extra Strength 500 MG eCW1 ([facility]) Acetaminophen 500 MG Oral Tablet Acetaminophen Extra S trength 500 MG Acetaminophen Extra Strength 500 MG 01/23/2020 12:00:00 AM EST 2.0 {tablets_as_needed} active Acetaminophe n Extra Strength 500 MG eCW1 ([facility]) Acetaminophen 500 MG Oral Tablet Acetaminophen Extra S trength 500 MG Acetaminophen Extra Strength 500 MG 01/23/2020 12:00:00 AM EST 2.0 {tablets_as_needed} active Acetaminophe n Extra Strength 500 MG eCW1 ([facility]) Acetaminophen 500 MG Oral Tablet Acetaminophen Extra S trength 500 MG Acetaminophen Extra Strength 500 MG 01/23/2020 12:00:00 AM EST 2.0 {tablets_as_needed} active Acetaminophe n Extra Strength 500 MG eCW1 ([facility]) Insurance Providers Payer name Policy type / Coverage type Policy ID Covered republican ID Covered republican's relationship to lou Policy Lou Plan Information MEDICARE [id number] Bridgett [id number] [employer] GOLD [id number] SP [id number] [employer]NA GOLD [id number] SP [id number] MEDICARE [id number] SP [id number] MEDICARE [id number] SP [id number] [facility] MED[facility]ID [id number] SP [id number] WELLCARE [id number] SP [id number] HUMANA GOLD [id number] SP [id number] WELLCARE [id number] SP [id number] [id number] [id number] SP [id number] MEDICARE C [id number] S [id number] MEDICAID M [id number] S [id number] SELF PAY ONLY [id number] SP [id number] MEDICARE [id number] SP [id number] MEDICARE [id number] SP [id number] MEDICARE [id number] SP [id number] Problems, Conditions, and Diagnoses Code Display Name Description Problem Type Effective Dates Data Source(s) E55.9 Vitamin D deficiency Vitamin D deficiency Problem 07/20/2020 12:00:00 AM EDT eCW1 ([facility]) D75.89 Macrocytosis Macrocytosis Problem 04/08/2020 12:00:00 A M EST eCW1 ([facility]) D75.89 [id number] Macrocytosis without anemia Problem 02/20/20 12:00:00 AM EST eCW1 ([facility]) K21.9 [id number] Gastroesophageal ref lux disease, unspecified whether esophagitis present Problem 01/07/2020 12:00:00 AM EDT eCW1 ([facility]) E78.2 [id number] Mixed hyperlipidemia Problem 01/07/2020 12:0 0:00 AM EDT eCW1 ([facility]) I10 [id number] Essential hypertension Problem 01/07/2020 12 :00:00 AM EDT eCW1 ([facility]) Z86.73 [id number] History of TIA (transient ischemic attack ) Problem 01/07/2020 12:00:00 AM EDT eCW1 ([facility]) F17.210 [id number] Cigarette nicotine dependence without com plication Problem 01/07/2020 12:00:00 AM EDT eCW1 ([facility]) Surgeries/Procedures Procedure Description Date Indications Data Source(s) OFFICE OUTPATIENT VISIT 25 MINUTES 09/29/2020 12:00:00 AM EDT MEDENT ([facility]) ECG ROUTINE ECG W/LEAST 12 LDS W/I&R 01/07/2020 12:00: 00 AM EDT eCW1 ([facility]) Immunization: Flublok Quadrivalent (18 years & older) 0.5mL IM (Influenza) 01/07/2020 12:00:00 AM EDT eCW1 ([facility]) Results ID Date Data Source [id number] 03/18/2020 10:06:34 AM EST [facility] Name Value Range Interpretation Code Description Data Tram rce(s) Supporting Document(s) &PDF [facility] YAKXYc5aUuQZSkTl82/SWGksDIIsg6JiIWasRXw2NCqcEDFkL0SnvSmsAJJCGV1SDQUPFy1FCWGACC8j [facility] [place] [file] ICAgICAgICAgICAgICAgICAgICAgICAgICAgICAgICAgICAgICAgICAgICAgICAgICAgICAgICAgICAg ICAgICAgICAgICAgICAgICAgICAgICAgICAgICAgICAgICAgICANCiAgICAgICAgICAgICAgICAgICAg ICAgICAgICAgICAgICAgICAgICAgICAgICAgICAgIC AgICAgICAgICAgICAgICAgICAgICAgICAgICAgICAgICAgICAgICAgICAgICAgICANCiAgICAgICAgIC AgICAgICAgICAgICAgICAgICAgICAgICAgICAgICAgICAgICAgICAgICAgICAgICAgICAgICAgICAgIC AgICAgICAgICAgICAgICAgICAgICAgICAgICAgICAN CiAgICAgICAgICAgICAgICAgICAgICAgICAgICAgICAgICAgICAgICAgICAgICAgICAgICAgICAgICAg ICAgICAgICAgICAgICAgICAgICAgICAgICAgICAgICAgICAgICAgICANCiAgICAgICAgICAgICAgICAg ICAgICAgICAgICAgICAgICAgICAgICAgICAgICAgIC AgICAgICAgICAgICAgICAgICAgICAgICAgICAgICAgICAgICAgICAgICAgICAgICAgICANCiAgICAgIC AgICAgICAgICAgICAgICAgICAgICAgICAgICAgICAgICAgICAgICAgICAgICAgICAgICAgICAgICAgIC AgICAgICAgICAgICAgICAgICAgICAgICAgICAgICAg ICANCiAgICAgICAgICAgICAgICAgICAgICAgICAgICAgICAgICAgICAgICAgICAgICAgICAgICAgICAg ICAgICAgICAgICAgICAgICAgICAgICAgICAgICAgICAgICAgICAgICAgICANCiAgICAgICAgICAgICAg ICAgICAgICAgICAgICAgICAgICAgICAgICAgICAgIC AgICAgICAgICAgICAgICAgICAgICAgICAgICAgICAgICAgICAgICAgICAgICAgICAgICAgICANCiAgIC AgICAgICAgICAgICAgICAgICAgICAgICAgICAgICAgICAgICAgICAgICAgICAgICAgICAgICAgICAgIC AgICAgICAgICAgICAgICAgICAgICAgICAgICAgICAg ICAgICANCiAgICAgICAgICAgICAgICAgICAgICAgICAgICAgICAgICAgICAgICAgICAgICAgICAgICAg ICAgICAgICAgICAgICAgICAgICAgICAgICAgICAgICAgICAgICAgICAgICAgICANCjw/uCArS6lkoZHb qwE2K9bpJf8RYj1ABF7oo2AkYAGlWZwnzbViIteYBf FuGPBpHprXGsk3RVtzAU1OpNTkP5JrX0XqEGcsCU9TPIEbCBXpwDHxUARpTQWgNlV8OHWxCPswQB8HlG YvCKqpHSGcCJOoWA0VYOVdI060wtAgHD3NZm6KHdYdHK9erm7CHOwiUCXkLquGTob2AHnpIP3WgVOvR5 LntBLhb8bSIeYiQ0WZWIV4NEMhZa8NEWKlNbMbFMYo IMmhDD6bRXWiHBCKrFnbrcE0RQ0ACB1jwkCxUL0CLrDhNk3dCd4ZGuNsK6CeZ8SvAGEkXWKNFUnkUE4S BOXiDXM5UNLsQTRfHEMTIgSgG52dXX8KS5Cbw94jEgS3TEBvPvIvGAlpPT16xJpqcoAngUVmgQsqPB0H Cj4+DQplbmRvYmoNCnhyZWYNCjAgMjANCjAwMDAwMD CvWFEyNeE0QtScLi4MAJAiFDWrMONcNeUoVELmQXMmXDenWSHiZGH6OsuoQASgXXFcLD7DPjCaBYAwAP arALtuZMUyKRCbgh0APPUjOKVnJIH9AWVzVFYeUSXeXVtjMCKhXJXjGZY1GESmOTVbTS6IChPdRYDzAA F9FMYeGAEySONjgp9UMPWgPWPsXwF4OxMuCWYkHAXx YGhdTTOxDAEhYvR8VAMcAHEeHL8MHxJaBFUuCXC3HAleYBVpPFKhqn1JMAWkTBEqWTcqLvGrCMHqXQAt ACtmKRNrWUM6RYE4VTWqXXLyZO2RXpPxOEKdXULrPWWwUDCpBZVqay8XMOLvCXMqWfP0SeHaSMGaSOHx SSidRZJoNAL8RVZ9ZUHxZMLoTQ6PViPgPWEgHYS9Ab ibIHShHCVeqm4ZPGUuYHZgVqXaASLdIDGiACWeKEdfBQJsBRE3LsQ0DELaSUAtDV5JFrUgDSNiMES9Qu exIIEdWYBnyv6STEUuIJJjKgBdOxEvGLFmYRCgMVh1xlUszBAkYCu2NM3NV6PfmcOwMdZRAw1Ox676IK M3PPCpIc3IN3evGk4nWHKfDNXYAe4XHFd3OQKnZmyy KFTcF7RxXJPsTFVmAOWuTaZ7YLgsBkFaFLi+EGhcHqXhZ8HzHIBvMeY4FwKfOXQuJZE0SsMyKAFzUUZm Vh0fLANKDy9+PHlymXOnoVbfJTMAGpW3WLW3LSvlXWGGSi5E ID Date Data Source FERRITIN 02/02/2020 12:00:00 AM EST eCW1 ([facility]ly [facility]) Name Value Range Interpretation Code Description Data Tram rce(s) Supporting Document(s) 130 8-252 FERRITIN eCW1 ([facility]ly [facility]) ID Date Data Source MAGNESIUM LEVEL 02/02/2020 12:00:00 AM EST eCW1 (Formerly [facility]) Name Value Range Interpretation Code Description Data Tram rce(s) Supporting Document(s) 2.1 1.8-2.4 MAGNESIUM LEVEL eCW1 ([facility]) ID Date Data Source IRON (FE) 02/02/2020 12:00:00 AM EST eCW1 (Formerly [facility]) Name Value Range Interpretation Code Description Data Tram rce(s) Supporting Document(s) 112 50-170 IRON (FE) eCW1 ([facility]) ID Date Data Source Comprehensive Metabolic Profile (CMP) 02/02/2020 12:00:00 AM EST eCW1 ([facility]) Name Value Range Interpretation Code Description Data Tram rce(s) Supporting Document(s) 90 70-100 GLUCOSE, FASTING eCW1 ([facility]) 137 136-145 SODIUM LEVEL eCW1 ([facility]) 3 7-18 BLOOD UREA NITROGEN eCW1 ([facility]) 0.58 0.55-1.30 CREATININE FOR GFR eCW1 ([facility]) > 60.0 >39 GLOMERULAR FILTRATION RATE eCW 1 ([facility]) 4.2 3.5-5.1 POTASSIUM SERUM eCW1 ([facility]) 9.2 8.8-10.2 CALCIUM LEVEL eCW1 ([facility]) 25 21-32 CARBON DIOXIDE LEVEL eCW1 ([facility]ly [facility]) 104 98-107 CHLORIDE LEVEL eCW1 ([facility]) 26 7-37 AST/SGOT eCW1 ([facility]) 0.3 0.2-1.0 BILIRUBIN,TOTAL eCW1 ([facility]) 6.5 6.4-8.2 TOTAL PROTEIN eCW1 ([facility]) 2.8 3.2-5.2 ALBUMIN eCW1 ([facility]) 23 12-78 ALT/SGPT eCW1 ([facility]) 115 45-117 ALKALINE PHOSPHATASE eCW1 ([facility]ly [facility]) 0.8 1.2-2.2 ALBUMIN/GLOBULIN RATIO eCW1 ([facility]) ID Date Data Source CBC with Differential 02/02/2020 12:00:00 AM EST eCW1 ([facility]) Name Value Range Interpretation Code Description Data Tram rce(s) Supporting Document(s) 4.09 4.00-5.40 RED BLOOD COUNT eCW1 ([facility]) 7.5 4.0-10.0 WHITE BLOOD COUNT eCW1 ([facility]) 14.5 12.0-15.5 HEMOGLOBIN eCW1 ([facility]ly [facility], [facility]) 107.6 80.0-96.0 MEAN CORPUSCULAR VOLUME e CW1 ([facility]) 33.0 32.0-36.5 MEAN CORPUSCULAR HGB CONC eCW1 ([facility]) 35.5 27.0-33.0 MEAN CORPUSCULAR HEMOGLOB IN eCW1 ([facility]) 44.0 36.0-47.0 HEMATOCRIT eCW1 ([facility], [facility]) 44.0 36.0-66.0 NEUTROPHILS % eCW1 ([facility]) 339 150-450 PLATELET COUNT, AUTOMATED eCW1 ([facility]) 13.2 11.5-14.5 RED CELL DISTRIBUTION WID TH eCW1 ([facility]) 44.6 24.0-44.0 LYMPH % eCW1 ([facility]) 1.6 0.0-3.0 EOS % eCW1 ([facility]) 3.3 1.5-8.5 NEUTROPHILS # eCW1 ([facility]) 8.4 0.0-5.0 MONO % eCW1 ([facility]) 1.1 0.0-1.0 BASO % eCW1 ([facility]) 3.3 1.5-5.0 LYMPH # eCW1 ([facility]) 0.1 0.0-0.2 BASO # eCW1 ([facility]) 0.6 0.0-0.8 MONO # eCW1 ([facility]) 0.1 0.0-0.5 EOS # eCW1 ([facility]) ID Date Data Source FREE T4 & TSH PANEL 01/08/2020 04:13:07 AM EDT eCW1 ([facility]ly [facility]) Name Value Range Interpretation Code Description Data Tram rce(s) Supporting Document(s) 1.32 eCW1 ([facility]) 0.859 eCW1 ([facility]) Procedure Social History Code Duration Value Status Description Data Source(s ) Smoking 11/08/2020 12:00:00 AM EDT Current Smoker completed Curre nt Smoker eCW1 ([facility]) Smoking 08/26/2020 12:00:00 AM EDT Current Smoker completed Curre nt Smoker eCW1 ([facility]) Smoking 08/26/2020 12:00:00 AM EDT Current Smoker completed Curre nt Smoker eCW1 ([facility]) Smoking 07/20/2020 12:00:00 AM EDT Current Smoker completed Curre nt Smoker eCW1 ([facility]) Smoking 07/20/2020 12:00:00 AM EDT Current Smoker completed Curre nt Smoker eCW1 ([facility]) Smoking 07/20/2020 12:00:00 AM EDT Current Smoker completed Curre nt Smoker eCW1 ([facility]) Smoking 07/08/2020 12:00:00 AM EDT Current Smoker completed Curre nt Smoker eCW1 ([facility]) Smoking 07/08/2020 12:00:00 AM EDT Current Smoker completed Curre nt Smoker eCW1 ([facility]) Smoking 04/08/2020 12:00:00 AM EST Current Smoker completed Curre nt Smoker eCW1 ([facility]) Smoking 04/08/2020 12:00:00 AM EST Current Smoker completed Curre nt Smoker eCW1 ([facility]) Smoking 04/08/2020 12:00:00 AM EST Current Smoker completed Curre nt Smoker eCW1 ([facility]) Smoking 04/08/2020 12:00:00 AM EST Current Smoker completed Curre nt Smoker eCW1 ([facility]) Smoking 04/08/2020 12:00:00 AM EST Current Smoker completed Curre nt Smoker eCW1 ([facility]) Smoking 04/08/2020 12:00:00 AM EST Current Smoker completed Curre nt Smoker eCW1 ([facility]) Smoking 04/08/2020 12:00:00 AM EST Current Smoker completed Curre nt Smoker eCW1 ([facility]) Smoking 04/08/2020 12:00:00 AM EST Current Smoker completed Curre nt Smoker eCW1 ([facility]) Smoking 02/20/2020 12:00:00 AM EST Current Smoker completed Curre nt Smoker eCW1 ([facility]) Smoking 02/20/2020 12:00:00 AM EST Current Smoker completed Curre nt Smoker eCW1 ([facility]) Smoking 02/20/2020 12:00:00 AM EST Current Smoker completed Curre nt Smoker eCW1 ([facility]) Smoking 02/02/2020 12:00:00 AM EST Current Smoker completed Curre nt Smoker eCW1 ([facility]) Smoking 01/07/2020 12:00:00 AM EDT Current Smoker completed Curre nt Smoker eCW1 ([facility]) Smoking 01/07/2020 12:00:00 AM EDT Current Smoker completed Curre nt Smoker eCW1 ([facility]) Smoking 01/07/2020 12:00:00 AM EDT Current Smoker completed Curre nt Smoker eCW1 ([facility]) Smoking 01/07/2020 12:00:00 AM EDT Current Smoker completed Curre nt Smoker eCW1 ([facility]) Vital Signs ID Date Data Source UNK Name Value Range Interpretation Code Description Data Source(s) Systolic blood pressure 134 mm[Hg] 134 mm[Hg[facility] Diastolic blood pressure 68 mm[Hg] 68 mm[Hg] [facility] ([facility]) Body height 64 [in_i] 64 [in_i] [facility] ([facility]) 5'4" Body weight 142.00 [lb_av] 142.00 [[facility]_av[facility] Body mass index (BMI) [Ratio] 24.4 kg/m2 24.4 k g/m2 [facility] ([facility]) [place] body weight 120 [lb_av] 120 [lb_av] [facility] Body weight 64.411 kg 64.411 kg [facility] ([facility]) Body surface area Derived from formula 1.69 m2 1.69 m2 [facility] ([facility]) Body weight 143 [lb_av] 143 [lb_av] eCW1 ([facility]) Body height 65 [in_i] 65 [in_i] eCW1 ([facility]ly [facility]) Body mass index (BMI) [Ratio] 23.79 kg/m2 23.79 kg/m2 W1 ([facility]) Heart rate 101 /min 101 /min eCW1 ([facility]) Respiratory rate 18 /min 18 /min W1 ([facility]) Body temperature 96.8 [degF] 96.8 [degF] eCW1 ( [facility]) Systolic blood pressure 98 mm[Hg] 98 mm[Hg] e CW1 ([facility]) Diastolic blood pressure 60 mm[Hg] 60 mm[Hg] eCW1 ([facility]) Body weight 140 [lb_av] 140 [lb_av] eCW1 ([facility]) Body height 65 [in_i] 65 [in_i] eCW1 ([facility]) Body mass index (BMI) [Ratio] 23.29 kg/m2 23.29 kg/m2 [facility] ([facility]) Heart rate 93 /min 93 /min eCW1 ([facility]) Respiratory rate 18 /min 18 /min eCW1 ([facility]) Body temperature 97.4 [degF] 97.4 [degF] eCW1 ( [facility]) Systolic blood pressure 122 mm[Hg] 122 mm[Hg] e CW1 ([facility]) Diastolic blood pressure 60 mm[Hg] 60 mm[Hg] eCW1 ([facility]) Body weight 140 [lb_av] 140 [lb_av] eCW1 ([facility]) Body height 65 [in_i] 65 [in_i] eCW1 ([facility]) Body mass index (BMI) [Ratio] 23.29 kg/m2 23.29 kg/m2 eCW1 ([facility]) Heart rate 92 /min 92 /min eCW1 ([facility]) Respiratory rate 18 /min 18 /min eCW1 ([facility]) Body temperature 98.1 [degF] 98.1 [degF] eCW1 ( [facility]) Systolic blood pressure 138 mm[Hg] 138 mm[Hg] e CW1 ([facility]) Diastolic blood pressure 78 mm[Hg] 78 mm[Hg] eCW1 ([facility]) Respiratory rate 18 /min 18 /min eCW1 ([facility]) Body weight 134 [lb_av] 134 [lb_av] eCW1 ([facility]) Body height 65 [in_i] 65 [in_i] eCW1 ([facility]) Body mass index (BMI) [Ratio] 22.30 kg/m2 22.30 kg/m2 eCW1 ([facility]) Heart rate 92 /min 92 /min eCW1 ([facility]) Body temperature 96.5 [degF] 96.5 [degF] eCW1 ( [facility]) Systolic blood pressure 116 mm[Hg] 116 mm[Hg] e CW1 ([facility]) Diastolic blood pressure 60 mm[Hg] 60 mm[Hg] eCW1 ([facility]) Body weight 134 [lb_av] 134 [lb_av] eCW1 ([facility]) Body mass index (BMI) [Ratio] 22.30 kg/m2 22.30 kg/m2 W1 ([facility]) Heart rate 101 /min 101 /min eCW1 ([facility]) Respiratory rate 18 /min 18 /min eCW1 ([facility]) Body temperature 97.3 [degF] 97.3 [degF] eCW1 ( [facility]) Systolic blood pressure 120 mm[Hg] 120 mm[Hg] e CW1 ([facility]) Body height 65 [in_i] 65 [in_i] eCW1 ([facility]) Diastolic blood pressure 60 mm[Hg] 60 mm[Hg] eCW1 ([facility]) Body weight 135.4 [lb_av] 135.4 [lb_av] eCW1 ([facility]) Body height 65 [in_i] 65 [in_i] eCW1 ([facility]) Body mass index (BMI) [Ratio] 22.53 kg/m2 22.53 kg/m2 eCW1 ([facility]) Heart rate 93 /min 93 /min eCW1 ([facility]) Respiratory rate 18 /min 18 /min eCW1 ([facility]) Body temperature 98.2 [degF] 98.2 [degF] eCW1 ( [facility]) Systolic blood pressure 122 mm[Hg] 122 mm[Hg] e CW1 ([facility]) Diastolic blood pressure 62 mm[Hg] 62 mm[Hg] eCW1 ([facility]) Body weight 135 [lb_av] 135 [lb_av] eCW1 ([facility]) Body height 65 [in_i] 65 [in_i] eCW1 ([facility]) Body mass index (BMI) [Ratio] 22.46 kg/m2 22.46 kg/m2 eCW1 ([facility]) Heart rate 101 /min 101 /min eCW1 ([facility]) Respiratory rate 20 /min 20 /min eCW1 ([facility]) Body temperature 96 [degF] 96 [degF] eCW1 ([facility]) Systolic blood pressure 120 mm[Hg] 120 mm[Hg] e CW1 ([facility]) Diastolic blood pressure 62 mm[Hg] 62 mm[Hg] eCW1 ([facility]) Systolic blood pressure 130 mm[Hg] 130 mm[Hg] M EDENT ([facility]) Diastolic blood pressure 70 mm[Hg] 70 mm[Hg] [facility] Body height 65 [in_i] 65 [in_i] [facility] ([facility]) 5'5" [place] body weight 125 [lb_av] 125 [lb_av] [facility] Body weight 61.009 kg 61.009 kg [facility] ([facility]) Body surface area Derived from formula 1.67 m2 1.67 m2 [facility] ([facility]) Body weight 134.50 [lb_av] 134.50 [lb_av] [facility] Body mass index (BMI) [Ratio] 22.4 kg/m2 22.4 k g/m2 [facility] ([facility]) Patient Treatment Plan of Care Planned Activity Planned Date Details Description Data Source (s) Vitamin D3 125 MCG (5000 UT) 07/22/2020 12:00:00 AM EDT eCW1 ([facility]) Vitamin D3 125 MCG (5000 UT) 07/22/2020 12:00:00 AM EDT eCW1 ([facility]) Naproxen 375 MG Oral Tablet 07/20/2020 12:00:00 AM EDT eCW1 ([facility]) Naproxen 375 MG Oral Tablet 07/20/2020 12:00:00 AM EDT eCW1 ([facility]) Naproxen 375 MG Oral Tablet 07/20/2020 12:00:00 AM EDT eCW1 ([facility]) Alendronic acid 70 MG Oral Tablet 04/29/2020 12:00:00 AM EST eCW1 ([facility]) Alendronic acid 70 MG Oral Tablet 04/29/2020 12:00:00 AM EST eCW1 ([facility]) Alendronic acid 70 MG Oral Tablet 04/29/2020 12:00:00 AM EST eCW1 ([facility]) Alendronic acid 70 MG Oral Tablet 04/29/2020 12:00:00 AM EST eCW1 ([facility]) Amlodipine 2.5 MG Oral Tablet 04/08/2020 12:00:00 AM EST eCW1 ([facility]) Amlodipine 2.5 MG Oral Tablet 04/08/2020 12:00:00 AM EST eCW1 ([facility]) Amlodipine 2.5 MG Oral Tablet 04/08/2020 12:00:00 AM EST eCW1 ([facility]) Amlodipine 2.5 MG Oral Tablet 04/08/2020 12:00:00 AM EST eCW1 ([facility]) Amlodipine 2.5 MG Oral Tablet 04/08/2020 12:00:00 AM EST eCW1 ([facility]) Amlodipine 2.5 MG Oral Tablet 04/08/2020 12:00:00 AM EST eCW1 ([facility]) Amlodipine 2.5 MG Oral Tablet 04/08/2020 12:00:00 AM EST eCW1 ([facility]) Amlodipine 2.5 MG Oral Tablet 04/08/2020 12:00:00 AM EST eCW1 ([facility]) Amlodipine 2.5 MG Oral Tablet 04/08/2020 12:00:00 AM EST eCW1 ([facility]) Amlodipine 2.5 MG Oral Tablet 04/08/2020 12:00:00 AM EST eCW1 ([facility]) Amlodipine 5 MG Oral Tablet 01/25/2020 12:00:00 AM EST eCW1 ([facility]) Acetaminophen 500 MG Oral Tablet 01/23/2020 12:00:00 AM EST eCW1 ([facility]) Acetaminophen 500 MG Oral Tablet 01/23/2020 12:00:00 AM EST eCW1 ([facility]) Acetaminophen 500 MG Oral Tablet 01/23/2020 12:00:00 AM EST eCW1 ([facility])
[2020-12-27] MEDS: LIDOCAINE 5% (LIDODERM) PATCH TD SCH (13:00)
[2020-12-27 13:41] LABS: RSV AMPLIFICATION NEGATIVE (NEGATIVE)
[2020-12-27] MEDS ORDERED: HOME MED LIST COMPLETE! XX SCH (14:05)
[2020-12-27] MEDS ORDERED: amLODIPine 5 MG TAB PO ONE (14:20)
[2020-12-27] MEDS ORDERED: PILL CUTTER 1 EACH XX ONE (14:20)
[2020-12-27 16:35] VITALS: BP 138/71
--- NOTE | 2020-12-27 16:56 | REP ---
INDICATION: Assess stenosis TECHNIQUE: Carotid ultrasonography was performed bilaterally FINDINGS: Right: CCA systolic: 119 centimeters/second CCA diastolic: 19.4 centimeters/second ICA systolic: 83.7 centimeters/second ICA diastolic: 15.1 centimeters/second ICA CCA ratio: 0.7 Left: CCA systolic: 93.7 centimeters/second CCA diastolic: 15 centimeters/second ICA systolic: 91.4 centimeters/second ICA diastolic: 21.1 centimeters/second ICA CCA ratio: 0.98 Vertebral artery: Right: Antegrade flow left: Antegrade flow A moderate amount of patchy echogenic material seen along the carotid arterial razo some of which casts and acoustic shadow IMPRESSION: According to the SRU criteria there is less than 50% stenosis of the internal carotid artery bilaterally secondary to both calcified and noncalcified atheromatous plaque formation. <Electronically signed by Juan Gregorio > 12/27/20 [id number]
[2020-12-27] MEDS ORDERED: ACETAMINOPHEN 500 MG TAB PO ONE (17:45)
[2020-12-27 18:00] VITALS: BP 138/71
[2020-12-27] MEDS: NICOTINE 21MG/24HR 1 EA TRANSDERMAL TD SCH (18:07)
--- NOTE | 2020-12-27 20:26 | REPVR ---
PROCEDURE INFORMATION: Exam: MR Head Without Contrast Exam date and time: 12/27/2020 7:37 PM Age: 75 years old Clinical indication: Syncope and collapse TECHNIQUE: Imaging protocol: MR of the head without contrast. COMPARISON: CT Head without contrast 12/27/2020 9:39 AM FINDINGS: Brain: Moderate parenchymal atrophy. Multiple foci of T2 lengthening are demonstrated in the subcortical, periventricular and centrum semiovale white matter consistent with age-related small vessel gliosis. Cerebral ventricles: The degree of ventricular dilatation is normal for age and/or degree of atrophy present. Bones/joints: Unremarkable. Paranasal sinuses: Normal as visualized. No acute sinusitis. Mastoid air cells: Normal as visualized. No mastoid effusion. Orbital cavity: Unremarkable. Soft tissues: Unremarkable. IMPRESSION: 1. Moderate parenchymal atrophy. Multiple foci of T2 lengthening are demonstrated in the subcortical, periventricular and centrum semiovale white matter consistent with age-related small vessel gliosis. 2. The degree of ventricular dilatation is normal for age and/or degree of atrophy present. 3. No acute intracranial findings. Electronically signed by: Gregg Mayer On 12/27/2020 20:25:58 PM
--- NOTE | 2020-12-27 20:28 | REPVR ---
PROCEDURE INFORMATION: Exam: MRA Head Without Contrast; Arteriography Exam date and time: 12/27/2020 7:37 PM Age: 75 years old Clinical indication: Syncope and collapse TECHNIQUE: Imaging protocol: Magnetic resonance angiography head without contrast. Exam focused on the arteries. COMPARISON: CT Head without contrast 12/27/2020 9:39 AM FINDINGS: ANTERIOR CIRCULATION: Right internal carotid artery: Intracranial segment is patent with no significant stenosis. No aneurysm. Right middle cerebral artery: No occlusion or significant stenosis. No aneurysm. Right anterior cerebral artery: No occlusion or significant stenosis. No aneurysm. Left internal carotid artery: Intracranial segment is patent with no significant stenosis. No aneurysm. Left middle cerebral artery: No occlusion or significant stenosis. No aneurysm. Left anterior cerebral artery: No occlusion or significant stenosis. No aneurysm. POSTERIOR CIRCULATION: Right vertebral artery: No occlusion or significant stenosis. No aneurysm. Left vertebral artery: No occlusion or significant stenosis. No aneurysm. Basilar artery: No occlusion or significant stenosis. No aneurysm. Right posterior cerebral artery: No occlusion or significant stenosis. No aneurysm. Left posterior cerebral artery: No occlusion or significant stenosis. No aneurysm. IMPRESSION: No stenosis or occlusion. Electronically signed by: Gregg Mayer On 12/27/2020 20:28:10 PM
[2020-12-27] MEDS: **NOTE PATIENT COMMENT** MISC XX SCH (21:19)
[2020-12-27 22:00] VITALS: BP_SYST 106; BP_SYST 111; BP_SYST 125; BP_DIAS 60; BP_DIAS 61; BP_DIAS 64
[2020-12-27 22:49] LABS: FREE T4 1.36 NG/DL (0.76-1.46); THYROID STIMULATING HORMONE 0.701 uIU/ML (0.358-3.740)
[2020-12-27] MEDS: ACETAMINOPHEN 500 MG TAB PO PRN (23:43)
[2020-12-28] MEDS: ACETAMINOPHEN 500 MG TAB PO PRN ×3 (05:51→20:45)
[2020-12-28 06:22] LABS: HEMATOCRIT 35.3 % (36.0-47.0); MEAN CORPUSCULAR HEMOGLOBIN 35.2 pg (27.0-33.0); MEAN CORPUSCULAR VOLUME 103.5 fl (80.0-96.0); PLATELET COUNT, AUTOMATED 183 10^3/uL (150-450); RED BLOOD COUNT 3.41 10^6/uL (4.00-5.40); WHITE BLOOD COUNT 5.1 10^3/uL (4.0-10.0)
[2020-12-28 06:47] LABS: ALBUMIN 2.1 GM/DL (3.2-5.2); ALT/SGPT 39 U/L (12-78); BILIRUBIN,TOTAL 0.9 MG/DL (0.2-1.0); BLOOD UREA NITROGEN 9 MG/DL (7-18); CARBON DIOXIDE LEVEL 28 MEQ/L (21-32); CHLORIDE LEVEL 102 MEQ/L (98-107); CREATININE FOR GFR 0.61 MG/DL (0.55-1.30); GLOMERULAR FILTRATION RATE > 60.0 (>39); GLUCOSE, FASTING 78 MG/DL (70-100); PHOSPHORUS LEVEL 2.5 MG/DL (2.5-4.9); POTASSIUM SERUM 3.2 MEQ/L (3.5-5.1); SODIUM LEVEL 136 MEQ/L (136-145); TOTAL PROTEIN 5.5 GM/DL (6.4-8.2)
[2020-12-28 07:19] VITALS: BP 112/65
[2020-12-28] MEDS ORDERED: POTASSIUM CHLORIDE 10MEQ SR TABLET PO ONE (08:00)
[2020-12-28] MEDS: ENOXAPARIN 40MG/0.4ML SYRINGE (J1650 PER 10MG) SC SCH (08:03)
[2020-12-28] MEDS: LIDOCAINE 5% (LIDODERM) PATCH TD SCH (08:04)
[2020-12-28] MEDS: NICOTINE 21MG/24HR 1 EA TRANSDERMAL TD SCH (08:06)
[2020-12-28 08:39] LABS: FOLATE 9.6 NG/ML (>5.4)
[2020-12-28] MEDS ORDERED: PREVNAR 13 VACCINE SYRINGE IM ONE (09:00)
[2020-12-28] MEDS ORDERED: FLUBLOK(EGG FREE)(QUAD)INFLUENZA VACC 0.5ML SYRINGE 18YRS & OLDER IM ONE (09:00)
[2020-12-28] MEDS: KCL 10MEQ/100ML SWI (KRUN) 10 MEQ in IV 1 EA IV SCH ×2 (09:58→12:33)
[2020-12-28 14:00] VITALS: BP_SYST 103; BP_SYST 113; BP_SYST 116; BP_DIAS 52; BP_DIAS 62
--- NOTE | 2020-12-28 14:28 | ECHO ---
ECHOCARDIOGRAM DATE OF PROCEDURE: 12/27/2020 Age: 75 Gender: Female Height: 64 inches Weight: 130 pounds Body Surface Area: 1.62 m2 PATIENT LOCATION: Inpatient Emergency Room 10. REFERRING PHYSICIAN: Dr. Ayden Cortés. INDICATION: Syncope. Abnormal EKG. MEASUREMENTS: 2D Measurements: RV 2.8 cm LV 3.8 cm Septum 0.8 cm Posterior wall 0.8 cm Aortic Root 3.0 cm LA 3.6 cm LVEF 65% Doppler Measurements: AV - 2.36 m/s LVOT 1.03 m/s LVOT diameter 2.0 cm Mean AV systolic gradient 12 mmHg Dimensionless index 0.49 MV-E 61, A 92, EA ratio 0.7 Early mitral deceleration time 240 msec E prime medial 5, A prime medial 9.5, E prime lateral 7.2 Average E/E prime ratio 10/PCWP 14.3 mmHg PV - 0.9 m/s Pulmonary artery acceleration time 141 msec PASP 20 mmHg IVC 1.3 cm COMMENTS: Normal sinus rhythm without intraventricular conduction disturbance. Technically challenging study in light of the patient's limited cooperation and body habitus, but diagnostically useful information was still obtained. M-mode and 2-dimensional echocardiography was performed with pulse, continuous wave, color flow, and tissue Doppler studies. Normal left ventricular size, wall thickness, and wall motion. Normal left atrial size with grade 1 LV diastolic dysfunction but currently normal estimated mean left atrial pressure. Normal right heart chamber sizes and motion and estimated pulmonary arterial pressure. IVC size was somewhat reduced with prompt collapse against an elevated central venous pressure. Normal aortic diameters. Mild degenerative changes of the aortic valvular structures with no more than marginal aortic stenosis and no apparent insufficiency. Subtle degenerative changes of her mitral valvular apparatus without inflow tract obstruction and no more than trace insufficiency. Normal appearing tricuspid valve with very mild insufficiency. No apparent intracardiac mass or pericardial effusion. Patient did have an anterior fat pad. MTDD
[2020-12-28] MEDS: **NOTE PATIENT COMMENT** MISC XX SCH (20:49)
[2020-12-28 22:00] VITALS: BP 114/49
--- NOTE | 2020-12-28 22:47 | IPNPDOC ---
Subjective Date Seen The patient was seen on 12/28/20. Subjective Chief Complaint/HPI No complaints this morning. No dizziness or light headedness. Objective Physical Examination General Exam: Positive: Alert, Cooperative, No Acute Distress Eye Exam: Positive: PERRLA, Conjunctiva & lids normal, EOMI; Negative: Sclera icteric ENT Exam: Positive: Atraumatic, Mucous membr. 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 She reported having 5 episodes in the last 2 weeks and similar nature. Of note, she endorses a 10 pound weight loss in the last 1 month. She was admitted for evaluation of Syncope. Syncope possibly due to hypotension from antihypertensive medications. Patient 's hypertension has likely resolved due ot ravinder loss of weight over the past year since her colon surgery so the antihypertensive medication was likely causing her to have episodes of hypotension or vasovagal syncope. . orthostatic changes are negative. Telemetry no cardiac arrhythmias noted yet Carotid doppler less than 50% stenosis. MRI and MRA brain no acute intracranial events. Echo grade 1 diastolic dysfunction, marginal . Hypokalemia replaced. Status post fall Complaining of back pain. Imaging did not reveal fracture or dislocation of the lumbar sacral spine Lidocaine patch is helping. Hypertension Bp low normal will stop amlodipine Nicotine abuse education; nicotine patch Etoh use Daily drinker. H/o Tubullovillous adenoma with dysplastic changes in the ascending colon s/p right hemicolectomy in 2020 has chronic diarrhea since the surgery adn also complains of early satiety with weight loss. GERD PPI H/o Dysphagia to solids. Arthralgias with positive JASON and positive ds DNA pmd has referred her to rheumatology. Plan/VTE VTE Prophylaxis Ordered?: Yes VS, I&O, 24H, Fishbone Vital Signs/I&O Vital Signs Date Time Temp Pulse Resp B/P (MAP) Pulse Ox O2 Delivery O2 Flow Rate FiO2 12/28/20 14:00 76 103/52 (69) 78 116/52 (73) 84 113/62 (79) 12/28/20 07:19 97.4 18 93 Room Air I&O- Last 24 Hours up to 6 AM 12/28/20 07:00 Intake Total 350 ml Balance 350 ml Laboratory Data 24H LABS Laboratory Tests 2 12/28/20 05:35: Nucleated Red Blood Cells % (auto) 0.0, Anion Gap 6L, Glomerular Filtration Rate > 60.0, Calcium Level 8.0L, Phosphorus Level 2.5, Magnesium Level 2.0, Total Bilirubin 0.9, Aspartate Amino Transf (AST/SGOT) 37, Alanine Aminotransferase (ALT/SGPT) 39, Alkaline Phosphatase 111, Total Protein 5.5L, Albumin 2.1L, Albumin/Globulin Ratio 0.6L CBC/BMP Laboratory Tests 12/28/20 05:35 Bessie Lara MD Dec 28, 2020 22:47
[2020-12-28] MEDS ORDERED: carisoprodoL 350 MG TAB PO PRN (23:55)
[2020-12-29] MEDS: DICLOFENAC EPOLAMINE 1.3 % PATCH TOP SCH ×2 (01:03→09:10)
[2020-12-29] MEDS: ACETAMINOPHEN 500 MG TAB PO PRN (04:52)
[2020-12-29 06:00] VITALS: BP 114/57
[2020-12-29] MEDS: ENOXAPARIN 40MG/0.4ML SYRINGE (J1650 PER 10MG) SC SCH (09:10)
[2020-12-29] MEDS: LIDOCAINE 5% (LIDODERM) PATCH TD SCH (09:10)
[2020-12-29] MEDS: NICOTINE 21MG/24HR 1 EA TRANSDERMAL TD SCH (09:11)
[2020-12-29 09:32] LABS: BLOOD UREA NITROGEN 5 MG/DL (7-18); CALCIUM LEVEL 8.3 MG/DL (8.8-10.2); CARBON DIOXIDE LEVEL 27 MEQ/L (21-32); CHLORIDE LEVEL 106 MEQ/L (98-107); CREATININE FOR GFR 0.56 MG/DL (0.55-1.30); GLOMERULAR FILTRATION RATE > 60.0 (>39); GLUCOSE, FASTING 135 MG/DL (70-100); POTASSIUM SERUM 3.4 MEQ/L (3.5-5.1); SODIUM LEVEL 137 MEQ/L (136-145)
[2020-12-29] MEDS ORDERED: LIDO5TD TD (09:52)
[2020-12-29] MEDS ORDERED: NAPR-885 PO (09:52)
[2020-12-29] MEDS ORDERED: KETOROLAC 30 MG/ML 1ML VIAL IV ONE (10:35)
--- NOTE | 2020-12-29 10:37 | DS.PDOC ---
Discharge Summary General Date of Admission Dec 27, 2020 at 08:40 Date of Discharge 12/29/20 Discharge Summary PROCEDURES PERFORMED DURING STAY: [None]. DISCHARGE DIAGNOSES: Syncope likely vasovagal or antihypertensive medication related hypotension Back pain s/p fall Hypokalemia chronic diarrhea s/p right hemicolectomy in 2019 GERD Dysphagia Nicotine and alcohol use daily Arthralgias with positive JASON and positive ds DNA COMPLICATIONS/CHIEF COMPLAINT: Syncope. 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 She reported having 5 episodes in the last 2 weeks and similar nature. Of note, she endorses a 10 pound weight loss in the last 1 month. She was admitted for evaluation of Syncope. Syncope possibly due to hypotension from antihypertensive medications. Patient 's hypertension has likely resolved due ot ravinder loss of weight over the past year since her colon surgery so the antihypertensive medication was likely causing her to have episodes of hypotension or vasovagal syncope. . orthostatic changes are negative. Telemetry no cardiac arrhythmias noted Carotid doppler less than 50% stenosis. MRI and MRA brain no acute intracranial events. Echo grade 1 diastolic dysfunction, marginal . Hypokalemia replaced. Status post fall Complaining of back pain. Imaging did not reveal fracture or dislocation of the lumbar sacral spine Lidocaine patch is helping. will also give naproxen Hypertension Bp low normal will stop amlodipine Nicotine abuse education; nicotine patch Etoh use Daily drinker. H/o Tubullovillous adenoma with dysplastic changes in the ascending colon s/p right hemicolectomy in 2019 has chronic diarrhea since the surgery and also complains of early satiety with weight loss. Has been scheduled for outpatient colonoscopy. Patient may also need a EGD. GERD PPI H/o Dysphagia to solids. Arthralgias with positive JASON and positive ds DNA pmd has referred her to rheumatology. DISCHARGE MEDICATIONS: Please see below. ALLERGIES: Please see below. PHYSICAL EXAMINATION ON DISCHARGE: VITAL SIGNS: Please see below. General Exam: Positive: Alert, Cooperative, No Acute Distress Eye Exam: Positive: PERRLA, Conjunctiva & lids normal, EOMI; Negative: Sclera icteric ENT Exam: Positive: Atraumatic, Mucous membr. moist/pink, Pharynx Normal Neck Exam: Positive: Supple; Negative: JVD, thyromegaly Chest Exam: Positive: Clear to auscultation, Normal air movement Heart Exam: Positive: Rate Normal, Regular Rhythm, Normal S1, Normal S2; Negative: Murmurs, Rubs Abdomen Exam: Positive: Normal bowel sounds, Soft; Negative: Tenderness Extremity Exam: Negative: Clubbing, Cyanosis, Edema Psych Exam: Positive: Memory Intact, Oriented x 3 LABORATORY DATA: Please see below. IMAGING: MRA: ANTERIOR CIRCULATION: Right internal carotid artery: Intracranial segment is patent with no significant stenosis. No aneurysm. Right middle cerebral artery: No occlusion or significant stenosis. No aneurysm. Right anterior cerebral artery: No occlusion or significant stenosis. No aneurysm. Left internal carotid artery: Intracranial segment is patent with no significant stenosis. No aneurysm. Left middle cerebral artery: No occlusion or significant stenosis. No aneurysm. Left anterior cerebral artery: No occlusion or significant stenosis. No aneurysm. POSTERIOR CIRCULATION: Right vertebral artery: No occlusion or significant stenosis. No aneurysm. Left vertebral artery: No occlusion or significant stenosis. No aneurysm. Basilar artery: No occlusion or significant stenosis. No aneurysm. Right posterior cerebral artery: No occlusion or significant stenosis. No aneurysm. Left posterior cerebral artery: No occlusion or significant stenosis. No aneurysm. IMPRESSION: No stenosis or occlusion. MRI: FINDINGS: Brain: Moderate parenchymal atrophy. Multiple foci of T2 lengthening are demonstrated in the subcortical, periventricular and centrum semiovale white matter consistent with age-related small vessel gliosis. Cerebral ventricles: The degree of ventricular dilatation is normal for age and/or degree of atrophy present. Bones/joints: Unremarkable. Paranasal sinuses: Normal as visualized. No acute sinusitis. Mastoid air cells: Normal as visualized. No mastoid effusion. Orbital cavity: Unremarkable. Soft tissues: Unremarkable. IMPRESSION: 1. Moderate parenchymal atrophy. Multiple foci of T2 lengthening are demonstrated in the subcortical, periventricular and centrum semiovale white matter consistent with age-related small vessel gliosis. 2. The degree of ventricular dilatation is normal for age and/or degree of atrophy present. 3. No acute intracranial findings. Carotid US: Right: CCA systolic: 119 centimeters/second CCA diastolic: 19.4 centimeters/second ICA systolic: 83.7 centimeters/second ICA diastolic: 15.1 centimeters/ second ICA CCA ratio: 0.7 Left: CCA systolic: 93.7 centimeters/second CCA diastolic: 15 ce ntimeters/second ICA systolic: 91.4 centimeters/second ICA diastolic: 21.1 centimeters/second ICA CCA ratio: 0.98 Vertebral artery: Right: Antegrade flow left: Antegrade flow A moderate amount of patchy echogenic material seen along the carotid arterial razo some of which casts and acoustic shadow IMPRESSION: According to the SRU criteria there is less than 50% stenosis of the internal carotid artery bilaterally secondary to both calcified and noncalcified atheromatous pl aque formation. Lumber spine Xray: There is no compression fracture or malalignment. There is normal lumbar lordosis. There is mild diffuse spurring. There is very mild diffuse disc space narrowing with associated subchondral sclerosis. There is sclerosis and spurring at the posterior facet joints of L4-5 and L5-S1. The posterior elements are intact. There is slight curvature toward the left. IMPRESSION: Diffuse degenerative changes without fracture or dislocation. ECHO: Normal left ventricular size, wall thickness, and wall motion. Normal left atrial size with grade 1 LV diastolic dysfunction but currently normal estimated mean left atrial pressure. Normal right heart chamber sizes and motion and estimated pulmonary arterial pressure. IVC size was somewhat reduced with prompt collapse against an elevated central venous pressure. Normal aortic diameters. Mild degenerative changes of the aortic valvular structures with no more than marginal aortic stenosis and no apparent insufficiency. Subtle degenerative changes of her mitral valvular apparatus without inflow tract obstruction and no more than trace insufficiency. Normal appearing tricuspid valve with very mild insufficiency. No apparent intracardiac mass or pericardial effusion. Patient did have an anterior fat pad. ACTIVITY: [As tolerated]. DIET: As tolerated DISCHARGE PLAN: Home DISCHARGE INSTRUCTIONS: PMD in 1 week ITEMS TO FOLLOWUP ON ON OUTPATIENT: Needs colonoscopy and EGD. DISCHARGE CONDITION: [Stable]. TIME SPENT ON DISCHARGE: 35 minutes. Vital Signs/I&Os Vital Signs Date Time Temp Pulse Resp B/P (MAP) Pulse Ox O2 Delivery O2 Flow Rate FiO2 12/29/20 06:00 96.9 74 20 114/57 (76) 95 Room Air I&O- Last 24 Hours up to 6 AM 12/29/20 05:59 Intake Total 1290 ml Balance 1290 ml Laboratory Data Labs 24H Laboratory Tests 2 12/29/20 08:54: Anion Gap 4L, Glomerular Filtration Rate > 60.0, Calcium Level 8.3L CBC/BMP Laboratory Tests 12/29/20 08:54 Discharge Medications Scheduled Lidocaine (Lidocaine) 5% Adh..patch, 1 PATCH TD DAILY Multivitamins (Thera M Plus Tablet) 1 Each Tablet, 1 TAB PO DAILY, (Reported) Naproxen (Naproxen) 500 Mg Tablet, 1 TAB PO BID for pain Scheduled PRN Acetaminophen (Tylenol Extra Strength) 500 Mg Tablet, 1,000 MG PO Q6H PRN for PAIN, (Reported) Allergies Coded Allergies: bee pollen (Verified Allergy, Severe, stops breathing, 12/27/20) codeine (Verified Allergy, Severe, stopped breathing , 12/27/20) morphine (Verified Allergy, Severe, stopped breathing, 12/27/20) oxycodone (Verified Allergy, Severe, stopped breathing, 12/27/20) atorvastatin (Verified Allergy, Intermediate, hives, 12/27/20) alendronate sodium (Verified Allergy, Unknown, gives her vomiting and diarrhra, 12/27/20) Bessie Lara MD Dec 29, 2020 10:37
[2020-12-29] MEDS: KCL 10MEQ/100ML SWI (KRUN) 10 MEQ in IV 1 EA IV SCH ×2 (11:00→12:03)
== END 2020-12-29 13:59 | disposition home or self-care (01) ==
LOC: EDBD 08:39 → M ED 08:39 → M ED INP 08:40 → ENRESERV 14:58 → M MSPAV 16:40
PROVIDERS: ADMIT Internal Medicine; ATTEND Internal Medicine Nephrology
DX: R55 Syncope and collapse (principal); M54.9 Dorsalgia, unspecified; R29.6 Repeated falls; E87.6 Hypokalemia; K52.9 Noninfective gastroenteritis and colitis, unspecified; Z90.49 Acquired absence of other specified parts of digestive tract; K21.9 Gastro-esophageal reflux disease without esophagitis; R13.10 Dysphagia, unspecified; F17.200 Nicotine dependence, unspecified, uncomplicated; M25.50 Pain in unspecified joint; R76.0 Raised antibody titer; I10 Essential (primary) hypertension; R63.4 Abnormal weight loss; Z86.010 Personal history of colon polyps; M51.36 Other intervertebral disc degeneration, lumbar region; Z79.899 Other long term (current) drug therapy; Z79.1 Long term (current) use of non-steroidal anti-inflammatories (NSAID); Z88.8 Allergy status to other drugs, medicaments and biological substances; Z88.5 Allergy status to narcotic agent; Z91.030 Bee allergy status
CPT/HCPCS: 36415; 70450; 70544; 70551; 71045; 72110; 72125; 80048; 80053; 82550; 82553; 82607; 82746; 83735; 84100; 84439; 84443; 84484; 85025; 85027; 87631; 90670; 90682; 93005; 93041; 93306; 93880; 94760; 96365; 96366; 96372; 96375; 97116; 97161; 97530; 99285; G0008; G0009; G0378; G0463; J1650; J1885; J3480

== ENCOUNTER 2021-01-07 02:33 | Emergency (ER) | payer OTHER ==
[~2021-01-07] VITALS: Ht 162.6 cm; Wt 59.0 kg
[~2021-01-07 02:33] MED LIST changes: +LIDO5TD TD; +NAPR-885 PO
[2021-01-07 03:45] VITALS: BP 145/72
--- NOTE | 2021-01-07 04:35 | REPVR ---
PROCEDURE INFORMATION: Exam: CT Head Without Contrast Exam date and time: 01/07/2021 3:22 AM Age: 75 years old Clinical indication: Injury or trauma; Fall; Concussion/head injury; Additional info: Fall, ETOH, pain TECHNIQUE: Imaging protocol: Computed tomography of the head without contrast. Radiation optimization: All CT scans at this facility use at least one of these dose optimization techniques: automated exposure control; mA and/or kV adjustment per patient size (includes targeted exams where dose is matched to clinical indication); or iterative reconstruction. COMPARISON: MRI-Brain without Contrast 12/27/2020 7:12 PM FINDINGS: There are no intra-or extra-axial hemorrhages or fluid collections. There is no mass effect or midline shift. Ventricles are mildly dilated with associated cortical volume loss consistent with generalized atrophy. Chronic ischemic changes in the periventricular deep white matter. Atherosclerotic changes within intracranial arteries. There are no focal parenchymal abnormalities. No calvarial fractures. IMPRESSION: Generalized atrophy and chronic ischemic changes. No acute intracranial process. No intracranial hemorrhage. Electronically signed by: Zeyad Mason On 01/07/2021 04:34:34 AM
--- NOTE | 2021-01-07 04:37 | REPVR ---
PROCEDURE INFORMATION: Exam: CT Cervical Spine Without Contrast Exam date and time: 01/07/2021 3:22 AM Age: 75 years old Clinical indication: Neck pain; Additional info: Fall, ETOH, pain TECHNIQUE: Imaging protocol: Computed tomography images of the cervical spine without contrast. Radiation optimization: All CT scans at this facility use at least one of these dose optimization techniques: automated exposure control; mA and/or kV adjustment per patient size (includes targeted exams where dose is matched to clinical indication); or iterative reconstruction. COMPARISON: CT Spine,cervical w/o contrast 12/27/2020 9:39 AM FINDINGS: On sagittal sequences, there is normal cervical lordosis. Broad-based rotational levocurvature of the cervical spine likely positional. Cervical vertebral body heights are maintained for age. Mild disc space narrowing with degenerative anterior and posterior osteophyte formation greatest at C5-C6 and C6-C7.. There is no AP malalignment. No prevertebral soft tissue swelling. Posterior elements and facets are intact. Mild facet hypertrophic changes. On axial sequences, intact neural rings are identified from C1-T1. No evidence of acute fracture. Visualized lung apices are clear. IMPRESSION: Degenerative changes as described above, similar to previous examination. No acute fracture or traumatic AP malalignment within the cervical spine. Electronically signed by: Zeyad Mason On 01/07/2021 04:37:06 AM
--- NOTE | 2021-01-07 04:55 | REPVR ---
PROCEDURE INFORMATION: Exam: CT Lumbar Spine Without Contrast Exam date and time: 01/07/2021 3:22 AM Age: 75 years old Clinical indication: Injury or trauma; Fall; Blunt trauma (contusions or hematomas); Additional info: Fall, ETOH, pain TECHNIQUE: Imaging protocol: Computed tomography images of the lumbar spine without contrast. Radiation optimization: All CT scans at this facility use at least one of these dose optimization techniques: automated exposure control; mA and/or kV adjustment per patient size (includes targeted exams where dose is matched to clinical indication); or iterative reconstruction. COMPARISON: CR Spine. Lumbosacral, complete 12/27/2020 10:49 AM FINDINGS: Vertebrae: Osteopenia. Mild levoscoliosis of the lumbar spine. Discs/Spinal canal/Neural foramina: Multilevel degenerative disease and facet arthropathy the lumbar spine. Lungs: Bilateral dependent and linear atelectasis. Liver: Hepatomegaly and steatosis. Stomach and bowel: Status post right hemicolectomy. Vasculature: Severe atherosclerotic disease of the abdominal aorta. Soft tissues: Unremarkable. IMPRESSION: Osteopenia. Mild levoscoliosis of the lumbar spine. No definite acute fractures. Electronically signed by: Jevon Hill On 01/07/2021 04:55:08 AM
== END 2021-01-07 06:15 | disposition left against medical advice (07) ==
LOC: M ED 02:33
DX: R55 Syncope and collapse (principal); M54.50 Low back pain, unspecified; I10 Essential (primary) hypertension; I25.10 Atherosclerotic heart disease of native coronary artery without angina pectoris; Z88.5 Allergy status to narcotic agent; Z88.8 Allergy status to other drugs, medicaments and biological substances; Z91.030 Bee allergy status; F17.210 Nicotine dependence, cigarettes, uncomplicated

== ENCOUNTER 2021-01-20 17:29 | Inpatient (IN) | payer OTHER ==
[~2021-01-20] VITALS: Ht 162.6 cm; Wt 59.0 kg
[2021-01-20 18:11] LABS: BASO # 0.1 10^3/uL (0.0-0.2); BASO % 0.6 % (0.0-1.0); EOS % 0.4 % (0.0-3.0); HEMATOCRIT 39.1 % (36.0-47.0); HEMOGLOBIN 13.5 g/dl (12.0-15.5); LYMPH # 1.9 10^3/uL (1.5-5.0); LYMPH % 23.8 % (24.0-44.0); MEAN CORPUSCULAR HEMOGLOBIN 35.3 pg (27.0-33.0); MEAN CORPUSCULAR HGB CONC 34.5 g/dl (32.0-36.5); MEAN CORPUSCULAR VOLUME 102.4 fl (80.0-96.0); MONO # 0.8 10^3/uL (0.0-0.8); MONO % 9.9 % (2.0-8.0); NEUTROPHILS # 5.1 10^3/uL (1.5-8.5); NEUTROPHILS % 64.7 % (36.0-66.0); PLATELET COUNT, AUTOMATED 291 10^3/uL (150-450); RED BLOOD COUNT 3.82 10^6/uL (4.00-5.40); WHITE BLOOD COUNT 7.9 10^3/uL (4.0-10.0)
[2021-01-20 18:33] LABS: ALBUMIN 2.2 GM/DL (3.2-5.2); ALT/SGPT 38 U/L (12-78); BILIRUBIN,DIRECT 0.5 MG/DL (0.0-0.2); LIPASE 115 U/L (73-393)
[2021-01-20] MEDS ORDERED: NS 1,000 ML IV ONE (19:00)
[2021-01-20] MEDS ORDERED: KETOROLAC 30 MG/ML 1ML VIAL IV ONE (19:00)
[2021-01-20] MEDS ORDERED: ONDANSETRON 4MG/2ML VIAL IV ONE (19:00)
--- OUTSIDE RECORDS SUMMARY | 2021-01-20 19:29 | CCD ---
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 Name Role Phone Robyn Owen Unavailable PROBLEMS Type Condition ICD9-CM Code [id number] Code Onset Dates Condition S tatus W/U Status Risk SNOMED Code Notes Problem Cigarette nicotine dependence without complication F17.210 Active confirmed 50686058 Problem History of TIA (transient ischemic attack) Z86.73 Active confirmed 587881530 Problem Vitamin D deficiency E55.9 Active confirmed 86206645 Problem Frequent falls R29.6 Active confirmed 47564 2002 Problem Essential hypertension I10 Active confirmed 70188050 Problem Mixed hyperlipidemia E78.2 Active confirmed 661402392 Problem Gastroesophageal reflux dise ase, unspecified whether esophagitis present K21.9 Active confirmed 497878044 Problem Macrocytosis without anemia D75.89 Active confirmed 320286867 ALLERGIES Allergen (clinical drug ingredient) Drug/Non Drug Allergy do cumented on EMR Reaction Allergy Type Onset Date Status Bee Pollen(NDC Code:[address]-21) Hives Drug Allergy Active atorvastatin Atorvastatin Calcium(NDC Code:[address]-37) Vomiting Drug Allergy Active oxycodone Oxycodone HCl(NDC Code:[address]-04) Anaphylaxis Drug All ergy Active morphine Morphine Sulfate(NDC Code:[address]-50) Hives Drug A llergy Active adhesive tape from heart monitor blisters Non Drug Aller gy Active simvastatin Simvastatin(NDC Code:[address]-08) muscle spasms Drug Al lergy Active ENCOUNTERS from 1945 to 2021-01-12 Encounter Location Date Provider Diagnosis [place] [id number] [facility] [phone] [place] [address] Jan, Robyn Owen IMMUNIZATIONS Vaccine Route Administration Date Status COVID-19 [...] School Audit Question Answer Notes Total Score: 0 Interpretation: Alcohol Education Language: Question Answer Notes Languages spoken: Malay danish Evangelical: Question Answer Notes Evangelical 13 Yarsani Domestic Violence: Question Answer Notes Status: Sexual [...] Notes Start Da te End Date Status Naproxen 500 MG 1 tablet with food or milk as needed Orally bid Dec, Active Centrum Silver - 1 tab Orally Daily Active PROCEDURES No Information RESULTS No Results REASON FOR VISIT cancelled appointment MEDICAL (GENERAL) HISTORY Type Description Date Medical History ?history of [place] in 2007 Medical History Hx TIA x [...] Information ASSESSMENTS No Information PLAN OF TREATMENT Next Appt Details Provider Name:Robyn Owen, 2021-01-26 10:00:00 AM, [address] [facility], , [place], [address], Insurance Providers Payer Name Payer Address Payer Phone Insured Name Patient Relati onship to Insured Coverage Start Date Coverage End Date [employer] [address] [address] [address] [facility] [id number] CEE COHEN,JESSIE Hobson self
--- OUTSIDE RECORDS SUMMARY | 2021-01-20 19:29 | CCD ---
Author Author [facility] Address Unknown Phone Unavailable Care Team Providers Care Dock Grader Name Role Phone DEREK, CLEOPATRA FARR Unavailable [...] is protected by Article 27-F of the [facility] Public Health law. If you continue you may have access to information: Regarding HIV / AIDS; Provided by facilities licensed or operated by the [facility] Office of Mental Health; or Provided by the [facility] Office for People With Developmental Disabilities. If such information is present, then the following [facility] mandated warning applies: This information has been [...] law may result in a fine or skilled nursing sentence or both. A general authorization for the release of medical or other information is NOT sufficient authorization for further disc losure. Encounters Encounter Providers Location Date Indications Data Source(s ) Unknown [address] [facility] [place] [address] 01/12/2021 12:00:00 AM EDT eCW1 ([facility]) Unknown [address] [facility] [place] [address] 12/30/2020 12:00:00 AM EDT eCW1 ([facility]) Outpatient [address] [facility] [place] [address] 12/27/2020 12:00:00 AM EDT eCW1 ([facility]) Unknown [address] [facility] [place] [address] 12/09/2020 12:00:00 AM EDT eCW1 ([facility]) Outpatient Attender: CLEOPATRA Goldberg/Arnoldo/Igor/Rene kearney 09/29/2020 03:00:00 PM EDT MEDENT ([facility]) Unknown [address] [facility] [place] [address] 08/27/2020 12:00:00 AM EDT eCW1 ([facility]) [place]patient [address] [facility] [place] [address] 08/26/2020 12:00:00 AM EDT eCW1 ([facility]) Unknown [address] [facility] [place] [address] 07/27/2020 12:00:00 AM EDT eCW1 ([facility]) Unknown [address] [facility] [place] [address] 07/22/2020 12:00:00 AM EDT eCW1 ([facility]) Outpatient [address] [facility] [place] [address] 07/20/2020 12:00:00 AM EDT eCW1 ([facility]) Unknown [address] [facility] [place] [address] 07/19/2020 12:00:00 AM EDT eCW1 ([facility]) Outpatient [address] [facility] [place] [address] 07/08/2020 12:00:00 AM EDT eCW1 ([facility]) Unknown [address] [facility] [place] [address] 06/24/2020 12:00:00 AM EDT eCW1 ([facility]) Unknown [address] [facility] [place] [address] 06/07/2020 12:00:00 AM EDT eCW1 ([facility]) Unknown [address] [facility] [place] [address] 05/20/2020 12:00:00 AM EST eCW1 ([facility]) Unknown [address] [facility] [place] [address] 04/29/2020 12:00:00 AM EST eCW1 ([facility]) Unknown [address] [facility] [place] [address] 04/21/2020 12:00:00 AM EST eCW1 ([facility]) Unknown [address] [facility] [place] [address] 04/21/2020 12:00:00 AM EST eCW1 ([facility]) Unknown [address] [facility] [place] [address] 04/13/2020 12:00:00 AM EST eCW1 ([facility]) Outpatient [address] [facility] [place] [address] 04/08/2020 12:00:00 AM EST eCW1 ([facility]) Unknown [address] [facility] [place] [address] 03/31/2020 12:00:00 AM EST eCW1 ([facility]) Outpatient JOSE ALFREDO.LUCILLE-JOSE ALFREDO 03/18/2020 10:16:27 AM EST [facility] Outpatient Referrer: Allyson VELIZ.[facility]NA.[facility] 06/2020 10:29:02 AM EST [facility] Unknown [address] [facility] [place] [address] 03/10/2020 12:00:00 AM EST eCW1 ([facility]) Outpatient [address] [facility] [place] [address] 02/20/2020 12:00:00 AM EST eCW1 ([facility]) [facility] 03/2019 12:00:00 AM EST [facility] Outpatient [address] [facility] [place] [address] 02/02/2020 12:00:00 AM EST eCW1 ([facility]) Unknown [address] [facility] [place] [address] 01/26/2020 12:00:00 AM EST eCW1 ([facility]) Unknown [address] [facility] [place] [address] 01/25/2020 12:00:00 AM EST eCW1 ([facility]) Unknown [address] [facility] [place] [address] 01/08/2020 12:00:00 AM EDT eCW1 ([facility]) Outpatient [address] [facility] [place] [address] 01/07/2020 12:00:00 AM EDT eCW1 ([facility]) Immunizations Vaccine Date Status Description Data Source(s) COVID-19 dose #2 given elsewhere Unspecified 06/15/2020 09:3 3:00 AM EDT completed eCW1 ([facility]) COVID-19 dose #2 given elsewhere Unspecified 06/15/2020 09:3 3:00 AM EDT completed eCW1 ([facility]) COVID-19 dose #2 given elsewhere Unspecified 06/15/2020 09:3 3:00 AM EDT completed eCW1 ([facility]) COVID-19 dose #2 given elsewhere Unspecified 06/15/2020 09:3 3:00 AM EDT completed eCW1 ([facility]) COVID-19 dose #2 given elsewhere Unspecified 06/15/2020 09:3 3:00 AM EDT completed eCW1 ([facility]) COVID-19 dose #2 given elsewhere Unspecified 06/15/2020 09:3 3:00 AM EDT completed eCW1 ([facility]) COVID-19 dose #2 given elsewhere Unspecified 06/15/2020 09:3 3:00 AM EDT completed eCW1 ([facility]) COVID-19 dose #2 given elsewhere Unspecified 06/15/2020 09:3 3:00 AM EDT completed eCW1 ([facility]) COVID-19 dose #2 given elsewhere Unspecified 06/15/2020 09:3 3:00 AM EDT completed eCW1 ([facility]) COVID-19 dose #2 given elsewhere Unspecified 06/15/2020 09:3 3:00 AM EDT completed eCW1 ([facility]) COVID-19 dose #2 given elsewhere Unspecified 06/15/2020 09:3 3:00 AM EDT completed eCW1 ([facility]) COVID-19 VACCINE Moderna 06/12/2020 12:00:00 AM EDT completed [employer] Vaccine Series Complete: YESThis Data wa s Submitted to [facility] Via [employer]. COVID-19 dose #1 given elsewhere Unspecified 05/24/2020 09:3 3:00 AM EDT completed eCW1 ([facility]) COVID-19 dose #1 given elsewhere Unspecified 05/24/2020 09:3 3:00 AM EDT completed eCW1 ([facility]) COVID-19 dose #1 given elsewhere Unspecified 05/24/2020 09:3 3:00 AM EDT completed eCW1 ([facility]) COVID-19 dose #1 given elsewhere Unspecified 05/24/2020 09:3 3:00 AM EDT completed eCW1 ([facility]) COVID-19 dose #1 given elsewhere Unspecified 05/24/2020 09:3 3:00 AM EDT completed eCW1 ([facility]) COVID-19 dose #1 given elsewhere Unspecified 05/24/2020 09:3 3:00 AM EDT completed eCW1 ([facility]) COVID-19 dose #1 given elsewhere Unspecified 05/24/2020 09:3 3:00 AM EDT completed eCW1 ([facility]) COVID-19 dose #1 given elsewhere Unspecified 05/24/2020 09:3 3:00 AM EDT completed eCW1 ([facility]) COVID-19 dose #1 given elsewhere Unspecified 05/24/2020 09:3 3:00 AM EDT completed eCW1 ([facility]) COVID-19 dose #1 given elsewhere Unspecified 05/24/2020 09:3 3:00 AM EDT completed eCW1 ([facility]) COVID-19 dose #1 given elsewhere Unspecified 05/24/2020 09:3 3:00 AM EDT completed eCW1 ([facility]) COVID-19 VACCINE Moderna 05/15/2020 12:00:00 AM EST completed [employer] Vaccine Series Complete: NOThis Data was Submitted to [facility] Via [employer]. influenza, recombinant, quadrIvalent,injectable, prese rvative free 01/07/2020 03:18:00 PM EDT completed eCW1 ([facility]) influenza, recombinant, quadrIvalent,injectable, prese rvative free 01/07/2020 03:18:00 PM EDT completed eCW1 ([facility]) influenza, recombinant, quadrIvalent,injectable, prese rvative free 01/07/2020 03:18:00 PM EDT completed eCW1 ([facility]) influenza, recombinant, quadrIvalent,injectable, prese rvative free 01/07/2020 03:18:00 PM EDT completed eCW1 ([facility]) influenza, recombinant, quadrIvalent,injectable, prese rvative free 01/07/2020 03:18:00 PM EDT completed eCW1 ([facility]) influenza, recombinant, quadrIvalent,injectable, prese rvative free 01/07/2020 03:18:00 PM EDT completed eCW1 ([facility]) influenza, recombinant, quadrIvalent,injectable, prese rvative free 01/07/2020 03:18:00 PM EDT completed eCW1 ([facility]) influenza, recombinant, quadrIvalent,injectable, prese rvative free 01/07/2020 03:18:00 PM EDT completed eCW1 ([facility]) influenza, recombinant, quadrIvalent,injectable, prese rvative free 01/07/2020 03:18:00 PM EDT completed eCW1 ([facility]) influenza, recombinant, quadrIvalent,injectable, prese rvative free 01/07/2020 03:18:00 PM EDT completed eCW1 ([facility]) influenza, recombinant, quadrIvalent,injectable, prese rvative free 01/07/2020 03:18:00 PM EDT completed eCW1 ([facility]) influenza, recombinant, quadrIvalent,injectable, prese rvative free 01/07/2020 03:18:00 PM EDT completed eCW1 ([facility]) influenza, recombinant, quadrIvalent,injectable, prese rvative free 01/07/2020 03:18:00 PM EDT completed eCW1 ([facility]) influenza, recombinant, quadrIvalent,injectable, prese rvative free 01/07/2020 03:18:00 PM EDT completed eCW1 ([facility]) influenza, recombinant, quadrIvalent,injectable, prese rvative free 01/07/2020 03:18:00 PM EDT completed eCW1 ([facility]) influenza, recombinant, quadrIvalent,injectable, prese rvative free 01/07/2020 03:18:00 PM EDT completed eCW1 ([facility]) influenza, recombinant, quadrIvalent,injectable, prese rvative free 01/07/2020 03:18:00 PM EDT completed eCW1 ([facility]) influenza, recombinant, quadrIvalent,injectable, prese rvative free 01/07/2020 03:18:00 PM EDT completed eCW1 ([facility]) influenza, recombinant, quadrIvalent,injectable, prese rvative free 01/07/2020 03:18:00 PM EDT completed eCW1 ([facility]) influenza, recombinant, quadrIvalent,injectable, prese rvative free 01/07/2020 03:18:00 PM EDT completed eCW1 ([facility]) influenza, recombinant, quadrIvalent,injectable, prese rvative free 01/07/2020 03:18:00 PM EDT completed eCW1 ([facility]) influenza, recombinant, quadrIvalent,injectable, prese rvative free 01/07/2020 03:18:00 PM EDT completed eCW1 ([facility]) influenza, recombinant, quadrIvalent,injectable, prese rvative free 01/07/2020 03:18:00 PM EDT completed eCW1 ([facility]) influenza, recombinant, quadrIvalent,injectable, prese rvative free 01/07/2020 03:18:00 PM EDT completed eCW1 ([facility]) influenza, recombinant, quadrIvalent,injectable, prese rvative free 01/07/2020 03:18:00 PM EDT completed eCW1 ([facility]) influenza, recombinant, quadrIvalent,injectable, prese rvative free 01/07/2020 03:18:00 PM EDT completed eCW1 ([facility]) influenza, recombinant, quadrIvalent,injectable, prese rvative free 01/07/2020 03:18:00 PM EDT completed eCW1 ([facility]) Medications Medication Brand Name Start Date Product Form Dose Route Admi nistrative Instructions Pharmacy Instructions Status Indications Reaction Description Data Source(s) Naproxen 500 MG Oral Tablet Naproxen 500 MG 12/29/2020 12:00:00 AM EDT active Naproxen 500 MG eCW1 ([facility]) Naproxen 500 MG Oral Tablet Naproxen 500 MG 12/29/2020 12:00:00 AM EDT active Naproxen 500 MG eCW1 ([facility]) Magnesium Hydroxide 80 MG/ML Oral Suspension Milk Of Magnesi a 09/29/2020 12:00:00 AM EDT ORAL active M EDENT ([facility] ) POLYETHYLENE GLYCOL 3350 142 MG/ML Oral Solution [Miralax] M iralax 09/29/2020 12:00:00 AM EDT active M DENNIS ([facility], ) Vitamin D3 125 MCG (5000 UT) Vitamin D3 125 MCG (5000 UT) 12:00:00 AM EDT 1.0 {capsule} active Vitamin D3 125 MCG (5000 UT) eCW1 ([facility]) Vitamin D3 125 MCG (5000 UT) Vitamin D3 125 MCG (5000 UT) 12:00:00 AM EDT 1.0 {capsule} active Vitamin D3 125 MCG (5000 UT) eCW1 ([facility]) Vitamin D3 125 MCG (5000 UT) Vitamin D3 125 MCG (5000 UT) 12:00:00 AM EDT 1.0 {capsule} active Vitamin D3 125 MCG (5000 UT) eCW1 ([facility]) Vitamin D3 125 MCG (5000 UT) Vitamin D3 125 MCG (5000 UT) 12:00:00 AM EDT 1.0 {capsule} active Vitamin D3 125 MCG (5000 UT) eCW1 ([facility]) Vitamin D3 125 MCG (5000 UT) Vitamin D3 125 MCG (5000 UT) 12:00:00 AM EDT 1.0 {capsule} active Vitamin D3 125 MCG (5000 UT) eCW1 ([facility]) Vitamin D3 125 MCG (5000 UT) Vitamin D3 125 MCG (5000 UT) 12:00:00 AM EDT 1.0 {capsule} active Vitamin D3 125 MCG (5000 UT) eCW1 ([facility]) Naproxen 375 MG Oral Tablet Naproxen 375 MG 07/20/2020 12:00:00 AM EDT active Naproxen 375 MG eCW1 ([facility]) Naproxen 375 MG Oral Tablet Naproxen 375 MG 07/20/2020 12:00:00 AM EDT active Naproxen 375 MG eCW1 ([facility]) Naproxen 375 MG Oral Tablet Naproxen 375 MG 07/20/2020 12:00:00 AM EDT active Naproxen 375 MG eCW1 ([facility]) Alendronic acid 70 MG Oral Tablet Alendronate Sodium 7 0 MG Alendronate Sodium 70 MG 04/29/2020 12:00:00 AM EST active Alendronate Sodium 70 MG eCW1 ([facility]) Alendronic acid 70 MG Oral Tablet Alendronate Sodium 7 0 MG Alendronate Sodium 70 MG 04/29/2020 12:00:00 AM EST active Alendronate Sodium 70 MG eCW1 ([facility]) Alendronic acid 70 MG Oral Tablet Alendronate Sodium 7 0 MG Alendronate Sodium 70 MG 04/29/2020 12:00:00 AM EST active Alendronate Sodium 70 MG eCW1 ([facility]) Alendronic acid 70 MG Oral Tablet Alendronate Sodium 7 0 MG Alendronate Sodium 70 MG 04/29/2020 12:00:00 AM EST active Alendronate Sodium 70 MG eCW1 ([facility]) Amlodipine 2.5 MG Oral Tablet AmLODIPine Besylate 2.5 MG AmLODIPine Besylate 2.5 MG 04/08/2020 12:00:00 AM EST 1.0 {tablet} activ e AmLODIPine Besylate 2.5 MG eCW1 ([facility]) Amlodipine 2.5 MG Oral Tablet AmLODIPine Besylate 2.5 MG AmLODIPine Besylate 2.5 MG 04/08/2020 12:00:00 AM EST 1.0 {tablet} activ e AmLODIPine Besylate 2.5 MG eCW1 ([facility]) Amlodipine 2.5 MG Oral Tablet AmLODIPine Besylate 2.5 MG AmLODIPine Besylate 2.5 MG 04/08/2020 12:00:00 AM EST 1.0 {tablet} activ e AmLODIPine Besylate 2.5 MG eCW1 ([facility]) Amlodipine 2.5 MG Oral Tablet AmLODIPine Besylate 2.5 MG AmLODIPine Besylate 2.5 MG 04/08/2020 12:00:00 AM EST 1.0 {tablet} activ e AmLODIPine Besylate 2.5 MG eCW1 ([facility]) Amlodipine 2.5 MG Oral Tablet amLODIPine Besylate 2.5 MG amLODIPine Besylate 2.5 MG 04/08/2020 12:00:00 AM EST 1.0 {tablet} activ e amLODIPine Besylate 2.5 MG eCW1 ([facility]) Amlodipine 2.5 MG Oral Tablet AmLODIPine Besylate 2.5 MG AmLODIPine Besylate 2.5 MG 04/08/2020 12:00:00 AM EST 1.0 {tablet} activ e AmLODIPine Besylate 2.5 MG eCW1 ([facility]) Amlodipine 2.5 MG Oral Tablet AmLODIPine Besylate 2.5 MG AmLODIPine Besylate 2.5 MG 04/08/2020 12:00:00 AM EST 1.0 {tablet} activ e AmLODIPine Besylate 2.5 MG eCW1 ([facility]) Amlodipine 2.5 MG Oral Tablet AmLODIPine Besylate 2.5 MG AmLODIPine Besylate 2.5 MG 04/08/2020 12:00:00 AM EST 1.0 {tablet} activ e AmLODIPine Besylate 2.5 MG eCW1 ([facility]) Amlodipine 2.5 MG Oral Tablet AmLODIPine Besylate 2.5 MG AmLODIPine Besylate 2.5 MG 04/08/2020 12:00:00 AM EST 1.0 {tablet} activ e AmLODIPine Besylate 2.5 MG eCW1 ([facility]) Amlodipine 2.5 MG Oral Tablet AmLODIPine Besylate 2.5 MG AmLODIPine Besylate 2.5 MG 04/08/2020 12:00:00 AM EST 1.0 {tablet} activ e AmLODIPine Besylate 2.5 MG eCW1 ([facility]) Amlodipine 2.5 MG Oral Tablet AmLODIPine Besylate 2.5 MG AmLODIPine Besylate 2.5 MG 04/08/2020 12:00:00 AM EST 1.0 {tablet} activ e AmLODIPine Besylate 2.5 MG eCW1 ([facility]) Amlodipine 2.5 MG Oral Tablet AmLODIPine Besylate 2.5 MG AmLODIPine Besylate 2.5 MG 04/08/2020 12:00:00 AM EST 1.0 {tablet} activ e AmLODIPine Besylate 2.5 MG eCW1 ([facility]) Amlodipine 2.5 MG Oral Tablet AmLODIPine Besylate 2.5 MG AmLODIPine Besylate 2.5 MG 04/08/2020 12:00:00 AM EST 1.0 {tablet} activ e AmLODIPine Besylate 2.5 MG eCW1 ([facility]) Amlodipine 2.5 MG Oral Tablet amLODIPine Besylate 2.5 MG amLODIPine Besylate 2.5 MG 04/08/2020 12:00:00 AM EST 1.0 {tablet} activ e amLODIPine Besylate 2.5 MG eCW1 ([facility]) Amlodipine 2.5 MG Oral Tablet AmLODIPine Besylate 2.5 MG AmLODIPine Besylate 2.5 MG 04/08/2020 12:00:00 AM EST 1.0 {tablet} activ e AmLODIPine Besylate 2.5 MG eCW1 ([facility]) Amlodipine 5 MG Oral Tablet AmLODIPine Besylate 5 MG AmLODIP ine Besylate 5 MG 01/25/2020 12:00:00 AM EST 1.0 {tablet} active AmLODIPine Besylate 5 MG eCW1 ([facility]) Amlodipine 5 MG Oral Tablet AmLODIPine Besylate 5 MG AmLODIP ine Besylate 5 MG 01/25/2020 12:00:00 AM EST 1.0 {tablet} active AmLODIPine Besylate 5 MG eCW1 ([facility]) Amlodipine 5 MG Oral Tablet AmLODIPine Besylate 5 MG AmLODIP ine Besylate 5 MG 01/25/2020 12:00:00 AM EST 1.0 {tablet} active AmLODIPine Besylate 5 MG eCW1 ([facility]) Amlodipine 5 MG Oral Tablet AmLODIPine Besylate 5 MG AmLODIP ine Besylate 5 MG 01/25/2020 12:00:00 AM EST 1.0 {tablet} active AmLODIPine Besylate 5 MG eCW1 ([facility]) Amlodipine 5 MG Oral Tablet AmLODIPine Besylate 5 MG AmLODIP ine Besylate 5 MG 01/25/2020 12:00:00 AM EST 1.0 {tablet} active AmLODIPine Besylate 5 MG eCW1 ([facility]) Amlodipine 5 MG Oral Tablet AmLODIPine Besylate 5 MG AmLODIP ine Besylate 5 MG 01/25/2020 12:00:00 AM EST 1.0 {tablet} active AmLODIPine Besylate 5 MG eCW1 ([facility]) Acetaminophen 500 MG Oral Tablet Acetaminophen Extra S trength 500 MG Acetaminophen Extra Strength 500 MG 01/23/2020 12:00:00 AM EST 2.0 {tablets_as_needed} active Acetaminophe n Extra Strength 500 MG eCW1 ([facility]) Acetaminophen 500 MG Oral Tablet Acetaminophen Extra S trength 500 MG Acetaminophen Extra Strength 500 MG 01/23/2020 12:00:00 AM EST 2.0 {tablets_as_needed} active Acetaminophe n Extra Strength 500 MG eCW1 ([facility]) Acetaminophen 500 MG Oral Tablet Acetaminophen Extra S trength 500 MG Acetaminophen Extra Strength 500 MG 01/23/2020 12:00:00 AM EST 2.0 {tablets_as_needed} active Acetaminophe n Extra Strength 500 MG eCW1 ([facility]) Acetaminophen 500 MG Oral Tablet Acetaminophen Extra S trength 500 MG Acetaminophen Extra Strength 500 MG 01/23/2020 12:00:00 AM EST 2.0 {tablets_as_needed} active Acetaminophe n Extra Strength 500 MG eCW1 ([facility]) Acetaminophen 500 MG Oral Tablet Acetaminophen Extra S trength 500 MG Acetaminophen Extra Strength 500 MG 01/23/2020 12:00:00 AM EST 2.0 {tablets_as_needed} active Acetaminophe n Extra Strength 500 MG eCW1 ([facility]) Acetaminophen 500 MG Oral Tablet Acetaminophen Extra S trength 500 MG Acetaminophen Extra Strength 500 MG 01/23/2020 12:00:00 AM EST 2.0 {tablets_as_needed} active Acetaminophe n Extra Strength 500 MG eCW1 ([facility]) Acetaminophen 500 MG Oral Tablet Acetaminophen Extra S trength 500 MG Acetaminophen Extra Strength 500 MG 01/23/2020 12:00:00 AM EST 2.0 {tablets_as_needed} active Acetaminophe n Extra Strength 500 MG eCW1 ([facility]) Acetaminophen 500 MG Oral Tablet Acetaminophen Extra S trength 500 MG Acetaminophen Extra Strength 500 MG 01/23/2020 12:00:00 AM EST 2.0 {tablets_as_needed} active Acetaminophe n Extra Strength 500 MG eCW1 ([facility]) Acetaminophen 500 MG Oral Tablet Acetaminophen Extra S trength 500 MG Acetaminophen Extra Strength 500 MG 01/23/2020 12:00:00 AM EST 2.0 {tablets_as_needed} active Acetaminophe n Extra Strength 500 MG eCW1 ([facility]) Acetaminophen 500 MG Oral Tablet Acetaminophen Extra S trength 500 MG Acetaminophen Extra Strength 500 MG 01/23/2020 12:00:00 AM EST 2.0 {tablets_as_needed} active Acetaminophe n Extra Strength 500 MG eCW1 ([facility]) Acetaminophen 500 MG Oral Tablet Acetaminophen Extra S trength 500 MG Acetaminophen Extra Strength 500 MG 01/23/2020 12:00:00 AM EST 2.0 {tablets_as_needed} active Acetaminophe n Extra Strength 500 MG eCW1 ([facility]) Acetaminophen 500 MG Oral Tablet Acetaminophen Extra S trength 500 MG Acetaminophen Extra Strength 500 MG 01/23/2020 12:00:00 AM EST 2.0 {tablets_as_needed} active Acetaminophe n Extra Strength 500 MG eCW1 ([facility]) Acetaminophen 500 MG Oral Tablet Acetaminophen Extra S trength 500 MG Acetaminophen Extra Strength 500 MG 01/23/2020 12:00:00 AM EST 2.0 {tablets_as_needed} active Acetaminophe n Extra Strength 500 MG eCW1 ([facility]) Acetaminophen 500 MG Oral Tablet Acetaminophen Extra S trength 500 MG Acetaminophen Extra Strength 500 MG 01/23/2020 12:00:00 AM EST 2.0 {tablets_as_needed} active Acetaminophe n Extra Strength 500 MG eCW1 ([facility]) Acetaminophen 500 MG Oral Tablet Acetaminophen Extra S trength 500 MG Acetaminophen Extra Strength 500 MG 01/23/2020 12:00:00 AM EST 2.0 {tablets_as_needed} active Acetaminophe n Extra Strength 500 MG eCW1 ([facility]) Acetaminophen 500 MG Oral Tablet Acetaminophen Extra S trength 500 MG Acetaminophen Extra Strength 500 MG 01/23/2020 12:00:00 AM EST 2.0 {tablets_as_needed} active Acetaminophe n Extra Strength 500 MG eCW1 ([facility]) Acetaminophen 500 MG Oral Tablet Acetaminophen Extra S trength 500 MG Acetaminophen Extra Strength 500 MG 01/23/2020 12:00:00 AM EST 2.0 {tablets_as_needed} active Acetaminophe n Extra Strength 500 MG eCW1 ([facility]) Acetaminophen 500 MG Oral Tablet Acetaminophen Extra S trength 500 MG Acetaminophen Extra Strength 500 MG 01/23/2020 12:00:00 AM EST 2.0 {tablets_as_needed} active Acetaminophe n Extra Strength 500 MG eCW1 ([facility]) Acetaminophen 500 MG Oral Tablet Acetaminophen Extra S trength 500 MG Acetaminophen Extra Strength 500 MG 01/23/2020 12:00:00 AM EST 2.0 {tablets_as_needed} active Acetaminophe n Extra Strength 500 MG eCW1 ([facility]) Acetaminophen 500 MG Oral Tablet Acetaminophen Extra S trength 500 MG Acetaminophen Extra Strength 500 MG 01/23/2020 12:00:00 AM EST 2.0 {tablets_as_needed} active Acetaminophe n Extra Strength 500 MG eCW1 ([facility]) Acetaminophen 500 MG Oral Tablet Acetaminophen Extra S trength 500 MG Acetaminophen Extra Strength 500 MG 01/23/2020 12:00:00 AM EST 2.0 {tablets_as_needed} active Acetaminophe n Extra Strength 500 MG eCW1 ([facility]) Acetaminophen 500 MG Oral Tablet Acetaminophen Extra S trength 500 MG Acetaminophen Extra Strength 500 MG 01/23/2020 12:00:00 AM EST 2.0 {tablets_as_needed} active Acetaminophe n Extra Strength 500 MG eCW1 ([facility]) Insurance Providers Payer name Policy type / Coverage type Policy ID Covered constitution party ID Covered constitution party's relationship to lou Policy Lou Plan Information MEDICARE [id number] Bridgett [id number] MEDICARE [id number] SP [id number] [employer] GOLD [id number] SP [id number] MEDICARE [id number] SP [id number] MEDICARE [id number] SP [id number] [place] [id number] SP [id number] WELLCARE [id number] SP [id number] HUMANA GOLD [id number] SP [id number] WELLCARE [id number] SP [id number] EMEDNY [id number] SP [id number] MEDICARE C [id number] S [id number] MEDICAID M [id number] S [id number] SELF PAY ONLY [id number] SP [id number] MEDICARE [id number] SP [id number] HUMANA GOLD [id number] SP [id number] MEDICARE [id number] SP [id number] Problems, Conditions, and Diagnoses Code Display Name Description Problem Type Effective Dates Data Source(s) R29.6 [id number] Frequent falls Problem 12/27/2020 12:00:00 A M EDT eCW1 ([facility]) E55.9 Vitamin D deficiency Vitamin D deficiency Problem 07/20/2020 12:00:00 AM EDT eCW1 ([facility]) D75.89 Macrocytosis Macrocytosis Problem 04/08/2020 12:00:00 A M EST eCW1 ([facility]) D75.89 [id number] Macrocytosis without anemia Problem 02/20/20 20 12:00:00 AM EST eCW1 ([facility]) K21.9 [id number] Gastroesophageal ref lux disease, unspecified whether esophagitis present Problem 01/07/2020 12:00:00 AM EDT eCW1 ([facility]) E78.2 [id number] Mixed hyperlipidemia Problem 01/07/2020 12:0 0:00 AM EDT eCW1 ([facility]) I10 [id number] Essential hypertension Problem 01/07/2020 12 :00:00 AM EDT eCW1 ([facility]) Z86.73 [id number] History of TIA (transient ischemic attack ) Problem 01/07/2020 12:00:00 AM EDT eCW1 ([facility]) F17.210 [id number] Cigarette nicotine dependence without com plication Problem 01/07/2020 12:00:00 AM EDT eCW1 ([facility]) Surgeries/Procedures Procedure Description Date Indications Data Source(s) OFFICE OUTPATIENT VISIT 25 MINUTES 09/29/2020 12:00:00 AM EDT EL ([facility]) ECG ROUTINE ECG W/LEAST 12 LDS W/I&R 01/07/2020 12:00: 00 AM EDT eCW1 ([facility]) Immunization: Flublok Quadrivalent (18 years & older) 0.5mL IM (Influenza) 01/07/2020 12:00:00 AM EDT eCW1 ([facility]) Results ID Date Data Source [id number] 12/27/2020 12:22:00 PM EDT [facility] Name Value Range Interpretation Code Description Data Tram rce(s) Supporting Document(s) SARS coronavirus 2 RNA [Presence] in Res piratory specimen by ABY with probe detection NEGATIVE [facility] This lab was ordered by [facility] a nd reported by [facility]. ID Date Data Source [id number] 03/18/2020 10:06:34 AM EST [facility] Name Value Range Interpretation Code Description Data Tram rce(s) Supporting Document(s) &PDF [facility] DCRRQq9pUjKVWrAz06/JEHckOYJeg4DxSPmiIDc5GEmpYSPkZ6SroKswYCESEX5ZEALDCd6HQEIKQC7l G [file] ICAgICAgICAgICAgICAgICAgICAgICAgICAgICAgICAgICAgICAgICAgICAgICAgICAgICAgICAgICAg ICAgICAgICAgICAgICAgICAgICAgICAgICAgICAgICAgICAgICANCiAgICAgICAgICAgICAgICAgICAg ICAgICAgICAgICAgICAgICAgICAgICAgICAgICAgIC AgICAgICAgICAgICAgICAgICAgICAgICAgICAgICAgICAgICAgICAgICAgICAgICANCiAgICAgICAgIC AgICAgICAgICAgICAgICAgICAgICAgICAgICAgICAgICAgICAgICAgICAgICAgICAgICAgICAgICAgIC AgICAgICAgICAgICAgICAgICAgICAgICAgICAgICAN CiAgICAgICAgICAgICAgICAgICAgICAgICAgICAgICAgICAgICAgICAgICAgICAgICAgICAgICAgICAg ICAgICAgICAgICAgICAgICAgICAgICAgICAgICAgICAgICAgICAgICANCiAgICAgICAgICAgICAgICAg ICAgICAgICAgICAgICAgICAgICAgICAgICAgICAgIC AgICAgICAgICAgICAgICAgICAgICAgICAgICAgICAgICAgICAgICAgICAgICAgICAgICANCiAgICAgIC AgICAgICAgICAgICAgICAgICAgICAgICAgICAgICAgICAgICAgICAgICAgICAgICAgICAgICAgICAgIC AgICAgICAgICAgICAgICAgICAgICAgICAgICAgICAg ICANCiAgICAgICAgICAgICAgICAgICAgICAgICAgICAgICAgICAgICAgICAgICAgICAgICAgICAgICAg ICAgICAgICAgICAgICAgICAgICAgICAgICAgICAgICAgICAgICAgICAgICANCiAgICAgICAgICAgICAg ICAgICAgICAgICAgICAgICAgICAgICAgICAgICAgIC AgICAgICAgICAgICAgICAgICAgICAgICAgICAgICAgICAgICAgICAgICAgICAgICAgICAgICANCiAgIC AgICAgICAgICAgICAgICAgICAgICAgICAgICAgICAgICAgICAgICAgICAgICAgICAgICAgICAgICAgIC AgICAgICAgICAgICAgICAgICAgICAgICAgICAgICAg ICAgICANCiAgICAgICAgICAgICAgICAgICAgICAgICAgICAgICAgICAgICAgICAgICAgICAgICAgICAg ICAgICAgICAgICAgICAgICAgICAgICAgICAgICAgICAgICAgICAgICAgICAgICANCjw/hJCdW1yhtZMk uvR1X2gvEz4YBj0QNW0qq4FdMYHoCKxiyjOpWimDWv HkDFRnUgiNZja0EFcpPD9XmBHzX3YlO8NmQVzcAX7AVJHeNTAreJStQIJcGMBpSiP3LWTgWVghVI2HrG FzSBkoAIEkHLBkHQ6OCNBmY999kvYcVH8YAx8PZbJzZF2fjw4AEFeaNTAyQnwXLzb6CUtuLY3SfELeL9 DhaENnc1jGUzVeR1DMKHB8WNJiQe9CPKEwMrOxZEZa RNsjQA5wUYGuQJDUbMxqspN6HR1RTT9njdCxKY8QPmSxJu6nOw3MGhOjC5XfG4JtEWHrUBJUZOtmFM3M KSKzQAM0XZZqIRYgHHOOTkFrS49iDX5XW6Ppz18aRmW4DKIgKdIaOAojVV09aPajbhCdnOIfcYafYG4C Cj4+DQplbmRvYmoNCnhyZWYNCjAgMjANCjAwMDAwMD FtTCJoAwM4OxFuMj5EYULtWYAgLHClReIlJZCfSCFaXLdiIKCpGQC0KaykHUUmTSJsRX4BPkLgAHGpUW nfYViuXKOdQBCifo5ZPMGcNSJnLIZ3KNHpOSBcZLZcRUbhLXRvACCcFVH1QQMzHHAkXD7EAsAxWPHyFK S7YZUhDPNxKPRpma4FGNFcLDCjNvH6OdFpBUBoGWUt LYouKUKuRFLxZkL5LJTvGXDwRB3SVvFxCOEaFVH7EHpvYHUjIKZwvu2BCKAfWPMbJRjhEkWyGLKnXSAa PIoaGXLtJEA0MLP1YNJaCIYxFY4ZUmUnFJDjCIXsJOYiMZIqSGApzp4XELGwQUNgTdJ6FkRxDCTgHVAf YLygHDFtYXC4GTV4FZQzKDVzOD7UZcBrRFAbYXJ4Nl wwSOKuJWScal3XCIFgWCAyVnMdARPfOHRiIBZxMZlqXMKmEVZ9IiG9IWZhPIVeVC9GIeUqNRHjDFK1Lo woFABaNDAzpx0HSOWpJKQjOxJwGiTtGJGoYZXwOGc8aqIntWXwVBx7ES1PR8NlmeNrNeCGWe8Mc406FS A4WXAbFv9YT4jqAr8dZMLhAYTYZl2TYHa1JJSfJybg GBDnH8CsICKhKAZsVLSzEaQ1OPuuOgMqEKw+XSdsQwSrU8KeKPPkSyP5JcHzRLYoTUZ3YsLpROAcJPDh Lw6tGYGMUg9+HCxgjVNnjUijSUGSQnG8NYB8XOgwFUNKTd8A ID Date Data Source FERRITIN 02/02/2020 12:00:00 AM EST eCW1 ([facility]) Name Value Range Interpretation Code Description Data Tram rce(s) Supporting Document(s) 130 6-421 FERRITIN eCW1 ([facility]) ID Date Data Source MAGNESIUM LEVEL 02/02/2020 12:00:00 AM EST eCW1 ([facility]) Name Value Range Interpretation Code Description Data Tram rce(s) Supporting Document(s) 2.1 1.8-2.4 MAGNESIUM LEVEL eCW1 ([facility]) ID Date Data Source IRON (FE) 02/02/2020 12:00:00 AM EST eCW1 ([facility]) Name Value Range Interpretation Code Description Data Tram rce(s) Supporting Document(s) 112 50-170 IRON (FE) eCW1 ([facility]) ID Date Data Source Comprehensive Metabolic Profile (CMP) 02/02/2020 12:00:00 AM EST eCW1 ([facility]) Name Value Range Interpretation Code Description Data Tram rce(s) Supporting Document(s) 90 70-100 GLUCOSE, FASTING eCW1 ([facility]) 137 136-145 SODIUM LEVEL eCW1 ([facility]) 3 7-18 BLOOD UREA NITROGEN eCW1 ([facility]) 0.58 0.55-1.30 CREATININE FOR GFR eCW1 ([facility]) > 60.0 >39 GLOMERULAR FILTRATION RATE eCW 1 ([facility]) 4.2 3.5-5.1 POTASSIUM SERUM eCW1 ([facility]) 9.2 8.8-10.2 CALCIUM LEVEL eCW1 ([facility]) 25 21-32 CARBON DIOXIDE LEVEL eCW1 ([facility]) 104 98-107 CHLORIDE LEVEL eCW1 ([facility]) 26 7-37 AST/SGOT eCW1 ([facility]) 0.3 0.2-1.0 BILIRUBIN,TOTAL eCW1 ([facility]) 6.5 6.4-8.2 TOTAL PROTEIN eCW1 ([facility]) 2.8 3.2-5.2 ALBUMIN eCW1 ([facility]) 23 12-78 ALT/SGPT eCW1 ([facility]) 115 45-117 ALKALINE PHOSPHATASE eCW1 ([facility]) 0.8 1.2-2.2 ALBUMIN/GLOBULIN RATIO eCW1 ([facility]) ID Date Data Source CBC with Differential 02/02/2020 12:00:00 AM EST eCW1 ([facility]) Name Value Range Interpretation Code Description Data Tram rce(s) Supporting Document(s) 4.09 4.00-5.40 RED BLOOD COUNT eCW1 ([facility]) 7.5 4.0-10.0 WHITE BLOOD COUNT eCW1 ([facility]) 14.5 12.0-15.5 HEMOGLOBIN eCW1 ([facility]) 107.6 80.0-96.0 MEAN CORPUSCULAR VOLUME e CW1 ([facility]) 33.0 32.0-36.5 MEAN CORPUSCULAR HGB CONC eCW1 ([facility]) 35.5 27.0-33.0 MEAN CORPUSCULAR HEMOGLOB IN eCW1 ([facility]) 44.0 36.0-47.0 HEMATOCRIT eCW1 ([facility]) 44.0 36.0-66.0 NEUTROPHILS % eCW1 ([facility]) 339 150-450 PLATELET COUNT, AUTOMATED eCW1 ([facility]) 13.2 11.5-14.5 RED CELL DISTRIBUTION WID TH eCW1 ([facility]) 44.6 24.0-44.0 LYMPH % eCW1 ([facility]) 1.6 0.0-3.0 EOS % eCW1 ([facility]) 3.3 1.5-8.5 NEUTROPHILS # eCW1 ([facility]) 8.4 0.0-5.0 MONO % eCW1 ([facility]) 1.1 0.0-1.0 BASO % eCW1 ([facility]) 3.3 1.5-5.0 LYMPH # eCW1 ([facility]) 0.1 0.0-0.2 BASO # eCW1 ([facility]) 0.6 0.0-0.8 MONO # eCW1 ([facility]) 0.1 0.0-0.5 EOS # eCW1 ([facility]) ID Date Data Source FREE T4 & TSH PANEL 01/08/2020 04:13:07 AM EDT eCW1 ([facility]) Name Value Range Interpretation Code Description Data Tram rce(s) Supporting Document(s) 1.32 eCW1 ([facility]) 0.859 eCW1 ([facility]) Procedure Social History Code Duration Value Status Description Data Source(s ) Smoking 12/27/2020 12:00:00 AM EDT Current Smoker completed Curre nt Smoker eCW1 ([facility]) Smoking 12/27/2020 12:00:00 AM EDT Current Smoker completed Curre nt Smoker eCW1 ([facility]) Smoking 12/27/2020 12:00:00 AM EDT Current Smoker completed Curre nt Smoker eCW1 ([facility]) Smoking 11/08/2020 12:00:00 AM EDT Current Smoker completed Curre nt Smoker eCW1 ([facility]) Smoking 08/26/2020 12:00:00 AM EDT Current Smoker completed Curre nt Smoker eCW1 ([facility]) Smoking 08/26/2020 12:00:00 AM EDT Current Smoker completed Curre nt Smoker eCW1 ([facility]) Smoking 07/20/2020 12:00:00 AM EDT Current Smoker completed Curre nt Smoker eCW1 ([facility]) Smoking 07/20/2020 12:00:00 AM EDT Current Smoker completed Curre nt Smoker eCW1 ([facility]) Smoking 07/20/2020 12:00:00 AM EDT Current Smoker completed Curre nt Smoker eCW1 ([facility]) Smoking 07/08/2020 12:00:00 AM EDT Current Smoker completed Curre nt Smoker eCW1 ([facility]) Smoking 07/08/2020 12:00:00 AM EDT Current Smoker completed Curre nt Smoker eCW1 ([facility]) Smoking 04/08/2020 12:00:00 AM EST Current Smoker completed Curre nt Smoker eCW1 ([facility]) Smoking 04/08/2020 12:00:00 AM EST Current Smoker completed Curre nt Smoker eCW1 ([facility]) Smoking 04/08/2020 12:00:00 AM EST Current Smoker completed Curre nt Smoker eCW1 ([facility]) Smoking 04/08/2020 12:00:00 AM EST Current Smoker completed Curre nt Smoker eCW1 ([facility]) Smoking 04/08/2020 12:00:00 AM EST Current Smoker completed Curre nt Smoker eCW1 ([facility]) Smoking 04/08/2020 12:00:00 AM EST Current Smoker completed Curre nt Smoker eCW1 ([facility]) Smoking 04/08/2020 12:00:00 AM EST Current Smoker completed Curre nt Smoker eCW1 ([facility]) Smoking 04/08/2020 12:00:00 AM EST Current Smoker completed Curre nt Smoker eCW1 ([facility]) Smoking 02/20/2020 12:00:00 AM EST Current Smoker completed Curre nt Smoker eCW1 ([facility]) Smoking 02/20/2020 12:00:00 AM EST Current Smoker completed Curre nt Smoker eCW1 ([facility]) Smoking 02/20/2020 12:00:00 AM EST Current Smoker completed Curre nt Smoker eCW1 ([facility]) Smoking 02/02/2020 12:00:00 AM EST Current Smoker completed Curre nt Smoker eCW1 ([facility]) Smoking 01/07/2020 12:00:00 AM EDT Current Smoker completed Curre nt Smoker eCW1 ([facility]) Smoking 01/07/2020 12:00:00 AM EDT Current Smoker completed Curre nt Smoker eCW1 ([facility]) Smoking 01/07/2020 12:00:00 AM EDT Current Smoker completed Curre nt Smoker eCW1 ([facility]) Smoking 01/07/2020 12:00:00 AM EDT Current Smoker completed Curre nt Smoker eCW1 ([facility]) Vital Signs ID Date Data Source UNK Name Value Range Interpretation Code Description Data Source(s) Body weight 134 [lb_av] 134 [lb_av] eCW1 ([facility]) Body height 65 [in_i] 65 [in_i] eCW1 ([facility]) Body mass index (BMI) [Ratio] 22.30 kg/m2 22.30 kg/m2 eCW1 ([facility]) Heart rate 98 /min 98 /min eCW1 ([facility]) Respiratory rate 18 /min 18 /min eCW1 ([facility]) Body temperature 97.1 [degF] 97.1 [degF] eCW1 ( [facility]) Systolic blood pressure 100 mm[Hg] 100 mm[Hg] e CW1 ([facility]) Diastolic blood pressure 58 mm[Hg] 58 mm[Hg] eCW1 ([facility]) Systolic blood pressure 134 mm[Hg] 134 mm[Hg] M EDENT ([facility]) Diastolic blood pressure 68 mm[Hg] 68 mm[Hg] MEDENT ([facility]) Body height 64 [in_i] 64 [in_i] [facility] ([facility]) 5'4" Body weight 142.00 [lb_av] 142.00 [lb_av] MEDEN T ([facility]) Body mass index (BMI) [Ratio] 24.4 kg/m2 24.4 k g/m2 [facility] ([facility]) [place] body weight 120 [lb_av] 120 [facility]_av[facility] Body weight 64.411 kg 64.411 kg [facility] ([facility]) Body surface area Derived from formula 1.69 m2 1.69 m2 [facility] ([facility]) Body weight 143 [lb_av] 143 [lb_av] eCW1 ([facility]) Body height 65 [in_i] 65 [in_i] eCW1 ([facility]) Body mass index (BMI) [Ratio] 23.79 kg/m2 23.79 kg/m2 W1 ([facility]) Heart rate 101 /min 101 /min eCW1 ([facility]) Respiratory rate 18 /min 18 /min eCW1 ([facility]) Body temperature 96.8 [degF] 96.8 [degF] eCW1 ( [facility]) Systolic blood pressure 98 mm[Hg] 98 mm[Hg] e CW1 ([facility]) Diastolic blood pressure 60 mm[Hg] 60 mm[Hg] eCW1 ([facility]) Body weight 140 [lb_av] 140 [lb_av] eCW1 ([facility]) Body height 65 [in_i] 65 [in_i] eCW1 ([facility]) Body mass index (BMI) [Ratio] 23.29 kg/m2 23.29 kg/m2 eCW1 ([facility]) Heart rate 93 /min 93 /min eCW1 ([facility]) Respiratory rate 18 /min 18 /min eCW1 ([facility]) Body temperature 97.4 [degF] 97.4 [degF] eCW1 ( [facility]) Systolic blood pressure 122 mm[Hg] 122 mm[Hg] e CW1 ([facility]) Diastolic blood pressure 60 mm[Hg] 60 mm[Hg] eCW1 ([facility]) Body weight 140 [lb_av] 140 [lb_av] eCW1 ([facility]) Body height 65 [in_i] 65 [in_i] eCW1 ([facility]) Body mass index (BMI) [Ratio] 23.29 kg/m2 23.29 kg/m2 eCW1 ([facility]) Heart rate 92 /min 92 /min eCW1 ([facility]) Respiratory rate 18 /min 18 /min eCW1 ([facility]) Body temperature 98.1 [degF] 98.1 [degF] eCW1 ( [facility]) Systolic blood pressure 138 mm[Hg] 138 mm[Hg] e CW1 ([facility]) Diastolic blood pressure 78 mm[Hg] 78 mm[Hg] eCW1 ([facility]) Body weight 134 [lb_av] 134 [lb_av] eCW1 ([facility]) Body height 65 [in_i] 65 [in_i] eCW1 ([facility]) Body mass index (BMI) [Ratio] 22.30 kg/m2 22.30 kg/m2 eCW1 ([facility]) Body temperature 96.5 [degF] 96.5 [degF] eCW1 ( [facility]) Systolic blood pressure 116 mm[Hg] 116 mm[Hg] e CW1 ([facility]) Diastolic blood pressure 60 mm[Hg] 60 mm[Hg] eCW1 ([facility]) Respiratory rate 18 /min 18 /min eCW1 ([facility]) Heart rate 92 /min 92 /min eCW1 ([facility]) Body height 65 [in_i] 65 [in_i] eCW1 ([facility]) Heart rate 101 /min 101 /min eCW1 ([facility]) Body weight 134 [lb_av] 134 [lb_av] eCW1 ([facility]) Respiratory rate 18 /min 18 /min eCW1 ([facility]) Body mass index (BMI) [Ratio] 22.30 kg/m2 22.30 kg/m2 eCW1 ([facility]) Body temperature 97.3 [degF] 97.3 [degF] eCW1 ( [facility]) Diastolic blood pressure 60 mm[Hg] 60 mm[Hg] eCW1 ([facility]) Systolic blood pressure 120 mm[Hg] 120 mm[Hg] e CW1 ([facility]) Body weight 135.4 [lb_av] 135.4 [lb_av] eCW1 ([facility]) Body height 65 [in_i] 65 [in_i] eCW1 ([facility]) Body mass index (BMI) [Ratio] 22.53 kg/m2 22.53 kg/m2 eCW1 ([facility]) Heart rate 93 /min 93 /min eCW1 ([facility]) Respiratory rate 18 /min 18 /min eCW1 ([facility]) Body temperature 98.2 [degF] 98.2 [degF] eCW1 ( [facility]) Systolic blood pressure 122 mm[Hg] 122 mm[Hg] e CW1 ([facility]) Diastolic blood pressure 62 mm[Hg] 62 mm[Hg] eCW1 ([facility]) Body weight 135 [lb_av] 135 [lb_av] eCW1 ([facility]) Body height 65 [in_i] 65 [in_i] eCW1 ([facility]) Body mass index (BMI) [Ratio] 22.46 kg/m2 22.46 kg/m2 eCW1 ([facility]) Heart rate 101 /min 101 /min eCW1 ([facility]) Respiratory rate 20 /min 20 /min eCW1 ([facility]) Body temperature 96 [degF] 96 [degF] eCW1 ([facility]) Systolic blood pressure 120 mm[Hg] 120 mm[Hg] e CW1 ([facility]) Diastolic blood pressure 62 mm[Hg] 62 mm[Hg] eCW1 ([facility]) Systolic blood pressure 130 mm[Hg] 130 mm[Hg] M EDENT ([facility] ) [place] body weight 125 [lb_av] 125 [lb_av] MEDEN T ([facility], ) Diastolic blood pressure 70 mm[Hg] 70 mm[Hg] MEDENT ([facility]) Body height 65 [in_i] 65 [in_i] [facility] 5'5" Body weight 134.50 [lb_av] 134.50 [lb_av] MEDEN T ([facility]) Body weight 61.009 kg 61.009 kg [facility] ([facility]) Body mass index (BMI) [Ratio] 22.4 kg/m2 22.4 k g/m2 [facility] ([facility]) Body surface area Derived from formula 1.67 m2 1.67 m2 [facility] ([facility]) Patient Treatment Plan of Care Planned Activity Planned Date Details Description Data Source (s) Vitamin D3 125 MCG (5000 UT) 07/22/2020 12:00:00 AM EDT eCW1 ([facility]) Vitamin D3 125 MCG (5000 UT) 07/22/2020 12:00:00 AM EDT eCW1 ([facility]) Naproxen 375 MG Oral Tablet 07/20/2020 12:00:00 AM EDT eCW1 ([facility]) Naproxen 375 MG Oral Tablet 07/20/2020 12:00:00 AM EDT eCW1 ([facility]) Naproxen 375 MG Oral Tablet 07/20/2020 12:00:00 AM EDT eCW1 ([facility]) Alendronic acid 70 MG Oral Tablet 04/29/2020 12:00:00 AM EST eCW1 ([facility]) Alendronic acid 70 MG Oral Tablet 04/29/2020 12:00:00 AM EST eCW1 ([facility]) Alendronic acid 70 MG Oral Tablet 04/29/2020 12:00:00 AM EST eCW1 ([facility]) Alendronic acid 70 MG Oral Tablet 04/29/2020 12:00:00 AM EST eCW1 ([facility]) Amlodipine 2.5 MG Oral Tablet 04/08/2020 12:00:00 AM EST eCW1 ([facility]) Amlodipine 2.5 MG Oral Tablet 04/08/2020 12:00:00 AM EST eCW1 ([facility]) Amlodipine 2.5 MG Oral Tablet 04/08/2020 12:00:00 AM EST eCW1 ([facility]) Amlodipine 2.5 MG Oral Tablet 04/08/2020 12:00:00 AM EST eCW1 ([facility]) Amlodipine 2.5 MG Oral Tablet 04/08/2020 12:00:00 AM EST eCW1 ([facility]) Amlodipine 2.5 MG Oral Tablet 04/08/2020 12:00:00 AM EST eCW1 ([facility]) Amlodipine 2.5 MG Oral Tablet 04/08/2020 12:00:00 AM EST eCW1 ([facility]) Amlodipine 2.5 MG Oral Tablet 04/08/2020 12:00:00 AM EST eCW1 ([facility]) Amlodipine 2.5 MG Oral Tablet 04/08/2020 12:00:00 AM EST eCW1 ([facility]) Amlodipine 2.5 MG Oral Tablet 04/08/2020 12:00:00 AM EST eCW1 ([facility]) Amlodipine 5 MG Oral Tablet 01/25/2020 12:00:00 AM EST eCW1 ([facility]) Acetaminophen 500 MG Oral Tablet 01/23/2020 12:00:00 AM EST eCW1 ([facility]) Acetaminophen 500 MG Oral Tablet 01/23/2020 12:00:00 AM EST eCW1 ([facility]) Acetaminophen 500 MG Oral Tablet 01/23/2020 12:00:00 AM EST eCW1 ([facility])
--- OUTSIDE RECORDS SUMMARY | 2021-01-20 19:29 | CCD ---
Author Author [facility] em[facility] Organization [facility] ems Address Unknown Phone Unavailable Care Team Providers Care Downstream Biomanufacturing Technician Name Role Phone Robyn Owen Unavailable PROBLEMS Type Condition ICD9-CM Code UAE09-BC Code Onset Dates Condition S tatus W/U Status Risk SNOMED Code Notes Problem Cigarette nicotine dependence without complication F17.210 Active confirmed 40084273 Problem History of TIA (transient ischemic attack) Z86.73 Active confirmed 084131526 Problem Vitamin D deficiency E55.9 Active confirmed 04527416 Problem Frequent falls R29.6 Active confirmed 53162 2002 Problem Essential hypertension I10 Active confirmed 53735873 Problem Mixed hyperlipidemia E78.2 Active confirmed 159123339 Problem Gastroesophageal reflux dise ase, unspecified whether esophagitis present K21.9 Active confirmed 768878848 Problem Macrocytosis without anemia D75.89 Active confirmed 145942307 ALLERGIES Allergen (clinical drug ingredient) Drug/Non Drug Allergy do cumented on EMR Reaction Allergy Type Onset Date Status Bee Pollen(NDC Code:[address]-17) Hives Drug Allergy Active atorvastatin Atorvastatin Calcium(NDC Code:[address]-71) Vomiting Drug Allergy Active oxycodone Oxycodone HCl(NDC Code:[address]-73) Anaphylaxis Drug All ergy Active morphine Morphine Sulfate(NDC Code:[address]-25) Hives Drug A llergy Active adhesive tape from heart monitor blisters Non Drug Aller gy Active simvastatin Simvastatin(NDC Code:[address]-32) muscle spasms Drug Al lergy Active ENCOUNTERS from 1945 to 2020-12-28 Encounter Location Date Provider Diagnosis [facility] [phone] [place] [address] Dec, Robyn Owen Injury of head, initial enco unter S09.90XA ; Syncope, unspecified syncope type R55 ; Lightheadedness R42 ; Acute bilateral low back pain without sciatica M54.50 ; Early satiety R68.81 and Intractable vomiting without nausea, unspecified vomiting type R11.11 IMMUNIZATIONS Vaccine Route Administration Date Status COVID-19 [...] Education Language: Question Answer Notes Languages spoken: Iraqi sinhala Sabianist: Question Answer Notes Sabianist 13 Advent Domestic Violence: Question Answer Notes Status: Sexual [...] REASON FOR REFERRAL No Information VITAL SIGNS Weight 134 lbs Dec, Height 65 in Dec, BMI 22.30 kg/m2 Dec, Heart Rate 98 /min Dec, Respiratory Rate 18 /min Dec, Temperature 97.1 degrees Fahrenheit Dec, Oximetry 98 Dec, Blood pressure systolic 100 mm Hg Dec, Blood pressure diastolic 58 mm Hg Dec, MEDICATIONS Medication SIG (Take, Route, Frequency, Duration) Notes Start Da te End Date Status amLODIPine Besylate 2.5 MG 1 tablet Orally Once a day for 90 Active Vitamin B12 100 MCG as directed Orally Active Vitamin D3 125 MCG (5000 UT) 1 capsule Orally Once a day for 90 day(s) 13 May, 2021 Active Nicotine 21 MG/24HR 1 patch to skin Transdermal Once a day Active Centrum Silver - 1 tab Orally Daily Active Naproxen 375 MG TAKE 1 TABLET BY MOUTH EVERY 12 HOURS WITH FOOD OR MILK NEEDED for 30 Not-Taking Acetaminophen Extra Strength 500 MG 2 tablets as needed Orally e very 6 hours Jan, Active Reclast 5 MG/100ML as directed Intravenous Not-Taking Calcium 150 MG as directed Orally Ac tive PROCEDURES No Information RESULTS No Results REASON FOR VISIT Frequent Falls, lightheadedness, LOC, vomiting, early satiety MEDICAL (GENERAL) HISTORY Type Description Date Medical History ?history of [place] in 2007 Medical History Hx TIA x [...] No Information FUNCTIONAL STATUS No Information ASSESSMENTS Encounter Date Diagnosis Assessment Notes Treatment Notes Treatm ent Clinical Notes Dec, Injury of head, initial encounter (ICD-10 - S09. 90XA) Hit head with LOC 2 days ago; since then dizziness has been worse. Denies other new neurologic deficits. Likely needs head CT. Dec, Syncope, unspecified syncope type (ICD-10 - R55) Has had 5 episodes of syncope in the last 2-3 weeks. Most likely etiology is dehydration due to decreased oral intake from early satiety and vomiting. Likely needs evaluation of electrolytes and renal function and IV hydration as she is not able to tolerate PO without vomiting. Dec, Lightheadedness (ICD-10 - R42) She is extremely lightheaded upon standing in the office today; she lives alone. She has a son, but he does not have a phone or a car and she states he is not able to stay with her at home. She is not safe to go home with her current lightheadedness and recurrent syncope. She states she does not have anyone else she can call to take her to the hospital for testing. Therefore, we called and ambulance to transport her for further workup with head imaging and lab testing. 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 Dec, Acute bilateral low back pain without sciatica ( ICD-10 - M54.50) No neurologic deficits; likely muscular injury with recent fall. Dec, Early satiety (ICD-10 - R68.81) Likely needs further workup with abdominal imaging, upper endoscopy, and/or gastric emptying study. Has history of a large colon adenoma requiring partial bowel resection and is scheduled for a colonoscopy on 01/07. She has been passing liquid stools and has been incontinent; likely needs to have partial SBO ruled out. Dec, Intractable vomiting without nausea, unspecified vomiting type (ICD-10 - R11.11) See above for early satiety. I am concerned for obstruction. Dec, Other Total time spen t care for the patient: 65 min (45 min face to face, 5 min speaking with ED, 5 min speaking with EMS crew, 10 min completing documentation). PLAN OF TREATMENT Treatment Notes Assessment Notes Clinical Notes Injury of head, initial encounter Hit he ad with LOC 2 days ago; since then dizziness has been worse. Denies other new neurologic deficits. Likely needs head CT. Syncope, unspecified syncope type Has saldana d 5 episodes of syncope in the last 2- 3 weeks. Most likely etiology is dehydration due to decreased oral intake from early satiety and vomiting. Likely needs evaluation of electrolytes and renal function and IV hydration as she is not able to tolerate PO without vomiting. Lightheadedness She is extremely lig htheaded upon standing in the office today; she lives alone. She has a son, but he does not have a phone or a car and she states he is not able to stay with her at home. She is not safe to go home with her current lightheadedness and recurrent syncope. She states she does not have anyone else she can call to take her to the hospital for testing. Therefore, we called and ambulance to transport her for further workup with head imaging and lab testing. 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 Acute bilateral low back pain without sciatica No neurologic deficits; likely muscular injury with recent fall. Early satiety Likely needs further workup with abdominal imaging, upper endoscopy, and/or gastric emptying study. Has history of a large colon adenoma requiring partial bowel resection and is scheduled for a colonoscopy on 01/07. She has been passing liquid stools and has been incontinent; likely needs to have partial SBO ruled out. Intractable vomiting without nausea, unspecified vomiting ty pe See above for early satiety. I am concerned for obstruction. Next Appt Details After ED follow up Reason: Insurance Providers Payer Name Payer Address Payer Phone Insured Name Patient Relati onship to Insured Coverage Start Date Coverage End Date [address] [place] [address] [address] [facility] [id number] CEE COHEN,JESSIE Hobson self
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
[2021-01-20] MEDS: GASTROGRAFIN SOLUTION 30ML PO SCH ×2 (19:30→20:00)
[2021-01-20] MEDS ORDERED: ISOVUE-370 76% 100ML VIAL As Ordered ONE (20:31)
[2021-01-20 20:45] LABS: RSV AMPLIFICATION NEGATIVE (NEGATIVE)
--- NOTE | 2021-01-20 22:14 | REPVR ---
PROCEDURE INFORMATION: Exam: CT Abdomen And Pelvis With Contrast Exam date and time: 01/20/2021 8:59 PM Age: 75 years old Clinical indication: Abdominal pain; Localized; Upper; Additional info: Upper abd pain/vomiting with eating ? obstruction TECHNIQUE: Imaging protocol: Computed tomography of the abdomen and pelvis with contrast. Radiation optimization: All CT scans at this facility use at least one of these dose optimization techniques: automated exposure control; mA and/or kV adjustment per patient size (includes targeted exams where dose is matched to clinical indication); or iterative reconstruction. Contrast material: ISOVUE 370; Contrast volume: 100 ml; Contrast route: INTRAVENOUS (IV); COMPARISON: CT ABD/PEL W/IV CONTRAST ONLY 01/20/2020 2:33 AM FINDINGS: Lungs: Right basilar atelectasis. Liver: There is a diffuse decrease in hepatic parenchymal density, consistent with fatty infiltration. There are no focal liver lesions present. Gallbladder and bile ducts: The gallbladder is surgically resected. Pancreas: The pancreas is diminutive. No pancreatic mass identified. Spleen: The spleen is normal. Adrenal glands: Normal. No mass. Kidneys and ureters: There is no evidence of hydronephrosis. No renal, ureteral, or bladder calculi are seen. Stomach and bowel: The stomach is normal. There are findings of colitis involving the sigmoid colon, with mural thickening and surrounding mesenteric edema. Innumerable colonic diverticula are noted, most prominent in the sigmoid colon. Air-fluid levels are seen in the bowel, which may reflect ileus or early obstruction. Appendix: No findings of acute appendicitis. Intraperitoneal space: No free air is seen. Vasculature: Atherosclerotic vascular disease is noted. Lymph nodes: No lymphadenopathy is seen. Urinary bladder: The bladder is normal. Reproductive: Hysterectomy. Bones/joints: T12 compression deformity is age indeterminate but new since 01/20/2020. IMPRESSION: 1. Sigmoid colitis, with associated ileus or early obstruction. 2. Diverticulosis coli. 3. Hepatic steatosis. 4. Right basilar atelectasis. Electronically signed by: Kath Campa On 01/20/2021 22:13:49 PM
[2021-01-20] MEDS ORDERED: fentaNYL 100 MCG/2 ML INJECTION (J3010) IV ONE (23:50)
[2021-01-21] MEDS ORDERED: MOM 30ML SUSPENSION UDC PO PRN (00:50)
[2021-01-21] MEDS ORDERED: MAALOX 30 ML SUSP *UDC PO PRN (00:50)
[2021-01-21] MEDS: metroNIDAZOLE 500 MG in IV 1 EA IV SCH ×3 (01:00→17:54)
--- OUTSIDE RECORDS SUMMARY | 2021-01-21 01:02 | CCD ---
Author [facility] Organization [facility] Address Unknown Phone Unavailable Care Team Providers Care Charge Entry Clerk Name Role Phone DEREK, CLEOPATRA FARR Unavailable [...] is protected by Article 27-F of the [facility] Public Health law. If you continue you may have access to information: Regarding HIV / AIDS; Provided by facilities licensed or operated by the [facility] Office of Mental Health; or Provided by the [facility] Office for People With Developmental Disabilities. If such information is present, then the following [facility] mandated warning applies: This information has [...] law may result in a fine or half-way sentence or both. A general authorization for the release of medical or other information is NOT sufficient authorization for further disc losure. Encounters Encounter Providers Location Date Indications Data Source(s ) Unknown [address] [facility] [place] [address] 01/12/2021 12:00:00 AM EDT eCW1 ([facility]) Unknown [address] [facility] [place] [address] 12/30/2020 12:00:00 AM EDT eCW1 ([facility]) [place]patient [address] [facility] [address] [place] [address] 12/27/2020 12:00:00 AM EDT eCW1 ([facility]) Unknown [address] [facility] [place] [address] 12/09/2020 12:00:00 AM EDT eCW1 ([facility]) Outpatient Attender: CLEOPATRA Goldberg/Arnoldo/Igor/Rene kearney 09/29/2020 03:00:00 PM EDT MEDENT ([facility]) [place] [address] [facility] [place] [address] 08/27/2020 12:00:00 AM EDT eCW1 ([facility]) [place] [address] [facility] [place] [address] 08/26/2020 12:00:00 AM EDT eCW1 ([facility]) Unknown [address] [facility] [place] [address] 07/27/2020 12:00:00 AM EDT eCW1 ([facility]) Unknown [address] [facility] [place] [address] 07/22/2020 12:00:00 AM EDT eCW1 ([facility]) [place] [address] [facility] [place] [address] 07/20/2020 12:00:00 AM EDT eCW1 ([facility]) Unknown [address] [facility] [place] [address] 07/19/2020 12:00:00 AM EDT eCW1 ([facility]) [place] [address] [facility] [place] [address] 07/08/2020 12:00:00 AM EDT eCW1 ([facility]) Unknown [address] [facility] [place] [address] 06/24/2020 12:00:00 AM EDT eCW1 ([facility]) Unknown [address] [facility] [place] [address] 06/07/2020 12:00:00 AM EDT eCW1 ([facility]) Unknown [address] [facility] [place] [address] 05/20/2020 12:00:00 AM EST eCW1 ([facility]) Unknown [address] [facility] [place] [address] 04/29/2020 12:00:00 AM EST eCW1 ([facility]) Unknown [address] [facility] [place] [address] 04/21/2020 12:00:00 AM EST eCW1 ([facility]) Unknown [address] [facility] [place] [address] 04/21/2020 12:00:00 AM EST eCW1 ([facility]) Unknown [address] [facility] [place] [address] 04/13/2020 12:00:00 AM EST eCW1 ([facility]) Out[place] [address] [facility] [place] [address] 04/08/2020 12:00:00 AM EST eCW1 ([facility]) Unknown [address] [facility] [place] [address] 03/31/2020 12:00:00 AM EST eCW1 ([facility]) Outpatient JOSE ALFREDO.LUCILLE-JOSE ALFREDO 03/18/2020 10:16:27 AM EST [facility] Outpatient Referrer: Allyson VELIZ[facility] 06/2020 10:29:02 AM EST [facility] Unknown [address] [facility] [place] [address] 03/10/2020 12:00:00 AM EST eCW1 ([facility]) Out[place] [address] [facility] [place] [address] 02/20/2020 12:00:00 AM EST eCW1 ([facility]) [facility] 03/2019 12:00:00 AM EST [facility] Outpatient [address] [facility] [place] [address] 02/02/2020 12:00:00 AM EST eCW1 ([facility]) Unknown [address] [facility] [place] [address] 01/26/2020 12:00:00 AM EST eCW1 ([facility]) Unknown [address] [facility] [place] [address] 01/25/2020 12:00:00 AM EST eCW1 ([facility]) Unknown [address] [facility] [place] [address] 01/08/2020 12:00:00 AM EDT eCW1 ([facility]) Outpatient [address] [facility] [place] [address] 01/07/2020 12:00:00 AM EDT eCW1 ([facility]) Immunizations Vaccine Date Status Description Data Source(s) COVID-19 dose #2 given elsewhere Unspecified 06/15/2020 09:3 3:00 AM EDT completed eCW1 ([facility]) COVID-19 dose #2 given elsewhere Unspecified 06/15/2020 09:3 3:00 AM EDT completed eCW1 ([facility]) COVID-19 dose #2 given elsewhere Unspecified 06/15/2020 09:3 3:00 AM EDT completed eCW1 ([facility]) COVID-19 dose #2 given elsewhere Unspecified 06/15/2020 09:3 3:00 AM EDT completed eCW1 ([facility]) COVID-19 dose #2 given elsewhere Unspecified 06/15/2020 09:3 3:00 AM EDT completed eCW1 ([facility]) COVID-19 dose #2 given elsewhere Unspecified 06/15/2020 09:3 3:00 AM EDT completed eCW1 ([facility]) COVID-19 dose #2 given elsewhere Unspecified 06/15/2020 09:3 3:00 AM EDT completed eCW1 ([facility]) COVID-19 dose #2 given elsewhere Unspecified 06/15/2020 09:3 3:00 AM EDT completed eCW1 ([facility]) COVID-19 dose #2 given elsewhere Unspecified 06/15/2020 09:3 3:00 AM EDT completed eCW1 ([facility]) COVID-19 dose #2 given elsewhere Unspecified 06/15/2020 09:3 3:00 AM EDT completed eCW1 ([facility]) COVID-19 dose #2 given elsewhere Unspecified 06/15/2020 09:3 3:00 AM EDT completed eCW1 ([facility]) COVID-19 VACCINE Moderna 06/12/2020 12:00:00 AM EDT completed [facility] Vaccine Series Complete: YESThis Data wa s Submitted to [facility] Via [facility]. COVID-19 dose #1 given elsewhere Unspecified 05/24/2020 09:3 3:00 AM EDT completed eCW1 ([facility]) COVID-19 dose #1 given elsewhere Unspecified 05/24/2020 09:3 3:00 AM EDT completed eCW1 ([facility]) COVID-19 dose #1 given elsewhere Unspecified 05/24/2020 09:3 3:00 AM EDT completed eCW1 ([facility]) COVID-19 dose #1 given elsewhere Unspecified 05/24/2020 09:3 3:00 AM EDT completed eCW1 ([facility]) COVID-19 dose #1 given elsewhere Unspecified 05/24/2020 09:3 3:00 AM EDT completed eCW1 ([facility]) COVID-19 dose #1 given elsewhere Unspecified 05/24/2020 09:3 3:00 AM EDT completed eCW1 ([facility]) COVID-19 dose #1 given elsewhere Unspecified 05/24/2020 09:3 3:00 AM EDT completed eCW1 ([facility]) COVID-19 dose #1 given elsewhere Unspecified 05/24/2020 09:3 3:00 AM EDT completed eCW1 ([facility]) COVID-19 dose #1 given elsewhere Unspecified 05/24/2020 09:3 3:00 AM EDT completed eCW1 ([facility]) COVID-19 dose #1 given elsewhere Unspecified 05/24/2020 09:3 3:00 AM EDT completed eCW1 ([facility]) COVID-19 dose #1 given elsewhere Unspecified 05/24/2020 09:3 3:00 AM EDT completed eCW1 ([facility]) COVID-19 VACCINE Moderna 05/15/2020 12:00:00 AM EST completed [facility] Vaccine Series Complete: NOThis Data was Submitted to [facility] Via [employer]. influenza, recombinant, quadrIvalent,injectable, prese rvative free 01/07/2020 03:18:00 PM EDT completed eCW1 ([facility]) influenza, recombinant, quadrIvalent,injectable, prese rvative free 01/07/2020 03:18:00 PM EDT completed eCW1 ([facility]) influenza, recombinant, quadrIvalent,injectable, prese rvative free 01/07/2020 03:18:00 PM EDT completed eCW1 ([facility]) influenza, recombinant, quadrIvalent,injectable, prese rvative free 01/07/2020 03:18:00 PM EDT completed eCW1 ([facility]) influenza, recombinant, quadrIvalent,injectable, prese rvative free 01/07/2020 03:18:00 PM EDT completed eCW1 ([facility]) influenza, recombinant, quadrIvalent,injectable, prese rvative free 01/07/2020 03:18:00 PM EDT completed eCW1 ([facility]) influenza, recombinant, quadrIvalent,injectable, prese rvative free 01/07/2020 03:18:00 PM EDT completed eCW1 ([facility]) influenza, recombinant, quadrIvalent,injectable, prese rvative free 01/07/2020 03:18:00 PM EDT completed eCW1 ([facility]) influenza, recombinant, quadrIvalent,injectable, prese rvative free 01/07/2020 03:18:00 PM EDT completed eCW1 ([facility]) influenza, recombinant, quadrIvalent,injectable, prese rvative free 01/07/2020 03:18:00 PM EDT completed eCW1 ([facility]) influenza, recombinant, quadrIvalent,injectable, prese rvative free 01/07/2020 03:18:00 PM EDT completed eCW1 ([facility]) influenza, recombinant, quadrIvalent,injectable, prese rvative free 01/07/2020 03:18:00 PM EDT completed eCW1 ([facility]) influenza, recombinant, quadrIvalent,injectable, prese rvative free 01/07/2020 03:18:00 PM EDT completed eCW1 ([facility]) influenza, recombinant, quadrIvalent,injectable, prese rvative free 01/07/2020 03:18:00 PM EDT completed eCW1 ([facility]) influenza, recombinant, quadrIvalent,injectable, prese rvative free 01/07/2020 03:18:00 PM EDT completed eCW1 ([facility]) influenza, recombinant, quadrIvalent,injectable, prese rvative free 01/07/2020 03:18:00 PM EDT completed eCW1 ([facility]) influenza, recombinant, quadrIvalent,injectable, prese rvative free 01/07/2020 03:18:00 PM EDT completed eCW1 ([facility]) influenza, recombinant, quadrIvalent,injectable, prese rvative free 01/07/2020 03:18:00 PM EDT completed eCW1 ([facility]) influenza, recombinant, quadrIvalent,injectable, prese rvative free 01/07/2020 03:18:00 PM EDT completed eCW1 ([facility]) influenza, recombinant, quadrIvalent,injectable, prese rvative free 01/07/2020 03:18:00 PM EDT completed eCW1 ([facility]) influenza, recombinant, quadrIvalent,injectable, prese rvative free 01/07/2020 03:18:00 PM EDT completed eCW1 ([facility]) influenza, recombinant, quadrIvalent,injectable, prese rvative free 01/07/2020 03:18:00 PM EDT completed eCW1 ([facility]) influenza, recombinant, quadrIvalent,injectable, prese rvative free 01/07/2020 03:18:00 PM EDT completed eCW1 ([facility]) influenza, recombinant, quadrIvalent,injectable, prese rvative free 01/07/2020 03:18:00 PM EDT completed eCW1 ([facility]) influenza, recombinant, quadrIvalent,injectable, prese rvative free 01/07/2020 03:18:00 PM EDT completed eCW1 ([facility]) influenza, recombinant, quadrIvalent,injectable, prese rvative free 01/07/2020 03:18:00 PM EDT completed eCW1 ([facility]) influenza, recombinant, quadrIvalent,injectable, prese rvative free 01/07/2020 03:18:00 PM EDT completed eCW1 ([facility]) Medications Medication Brand Name Start Date Product Form Dose Route Admi nistrative Instructions Pharmacy Instructions Status Indications Reaction Description Data Source(s) Naproxen 500 MG Oral Tablet Naproxen 500 MG 12/29/2020 12:00:00 AM EDT active Naproxen 500 MG eCW1 ([facility]) Naproxen 500 MG Oral Tablet Naproxen 500 MG 12/29/2020 12:00:00 AM EDT active Naproxen 500 MG eCW1 ([facility]) Magnesium Hydroxide 80 MG/ML Oral Suspension Milk Of Magnesi a 09/29/2020 12:00:00 AM EDT ORAL active M EDENT ([facility], ) POLYETHYLENE GLYCOL 3350 142 MG/ML Oral Solution [Miralax] M iralax 09/29/2020 12:00:00 AM EDT active M DENNIS ([facility], ) Vitamin D3 125 MCG (5000 UT) Vitamin D3 125 MCG (5000 UT) 12:00:00 AM EDT 1.0 {capsule} active Vitamin D3 125 MCG (5000 UT) eCW1 ([facility]) Vitamin D3 125 MCG (5000 UT) Vitamin D3 125 MCG (5000 UT) 12:00:00 AM EDT 1.0 {capsule} active Vitamin D3 125 MCG (5000 UT) eCW1 ([facility]) Vitamin D3 125 MCG (5000 UT) Vitamin D3 125 MCG (5000 UT) 12:00:00 AM EDT 1.0 {capsule} active Vitamin D3 125 MCG (5000 UT) eCW1 ([facility]) Vitamin D3 125 MCG (5000 UT) Vitamin D3 125 MCG (5000 UT) 12:00:00 AM EDT 1.0 {capsule} active Vitamin D3 125 MCG (5000 UT) eCW1 ([facility]) Vitamin D3 125 MCG (5000 UT) Vitamin D3 125 MCG (5000 UT) 12:00:00 AM EDT 1.0 {capsule} active Vitamin D3 125 MCG (5000 UT) eCW1 ([facility]) Vitamin D3 125 MCG (5000 UT) Vitamin D3 125 MCG (5000 UT) 12:00:00 AM EDT 1.0 {capsule} active Vitamin D3 125 MCG (5000 UT) eCW1 ([facility]) Naproxen 375 MG Oral Tablet Naproxen 375 MG 07/20/2020 12:00:00 AM EDT active Naproxen 375 MG eCW1 ([facility]) Naproxen 375 MG Oral Tablet Naproxen 375 MG 07/20/2020 12:00:00 AM EDT active Naproxen 375 MG eCW1 ([facility]) Naproxen 375 MG Oral Tablet Naproxen 375 MG 07/20/2020 12:00:00 AM EDT active Naproxen 375 MG eCW1 ([facility]) Alendronic acid 70 MG Oral Tablet Alendronate Sodium 7 0 MG Alendronate Sodium 70 MG 04/29/2020 12:00:00 AM EST active Alendronate Sodium 70 MG eCW1 ([facility]) Alendronic acid 70 MG Oral Tablet Alendronate Sodium 7 0 MG Alendronate Sodium 70 MG 04/29/2020 12:00:00 AM EST active Alendronate Sodium 70 MG eCW1 ([facility]) Alendronic acid 70 MG Oral Tablet Alendronate Sodium 7 0 MG Alendronate Sodium 70 MG 04/29/2020 12:00:00 AM EST active Alendronate Sodium 70 MG eCW1 ([facility]) Alendronic acid 70 MG Oral Tablet Alendronate Sodium 7 0 MG Alendronate Sodium 70 MG 04/29/2020 12:00:00 AM EST active Alendronate Sodium 70 MG eCW1 ([facility]) Amlodipine 2.5 MG Oral Tablet AmLODIPine Besylate 2.5 MG AmLODIPine Besylate 2.5 MG 04/08/2020 12:00:00 AM EST 1.0 {tablet} activ e AmLODIPine Besylate 2.5 MG eCW1 ([facility]) Amlodipine 2.5 MG Oral Tablet AmLODIPine Besylate 2.5 MG AmLODIPine Besylate 2.5 MG 04/08/2020 12:00:00 AM EST 1.0 {tablet} activ e AmLODIPine Besylate 2.5 MG eCW1 ([facility]) Amlodipine 2.5 MG Oral Tablet AmLODIPine Besylate 2.5 MG AmLODIPine Besylate 2.5 MG 04/08/2020 12:00:00 AM EST 1.0 {tablet} activ e AmLODIPine Besylate 2.5 MG eCW1 ([facility]) Amlodipine 2.5 MG Oral Tablet AmLODIPine Besylate 2.5 MG AmLODIPine Besylate 2.5 MG 04/08/2020 12:00:00 AM EST 1.0 {tablet} activ e AmLODIPine Besylate 2.5 MG eCW1 ([facility]) Amlodipine 2.5 MG Oral Tablet amLODIPine Besylate 2.5 MG amLODIPine Besylate 2.5 MG 04/08/2020 12:00:00 AM EST 1.0 {tablet} activ e amLODIPine Besylate 2.5 MG eCW1 ([facility]) Amlodipine 2.5 MG Oral Tablet AmLODIPine Besylate 2.5 MG AmLODIPine Besylate 2.5 MG 04/08/2020 12:00:00 AM EST 1.0 {tablet} activ e AmLODIPine Besylate 2.5 MG eCW1 ([facility]) Amlodipine 2.5 MG Oral Tablet AmLODIPine Besylate 2.5 MG AmLODIPine Besylate 2.5 MG 04/08/2020 12:00:00 AM EST 1.0 {tablet} activ e AmLODIPine Besylate 2.5 MG eCW1 ([facility]) Amlodipine 2.5 MG Oral Tablet AmLODIPine Besylate 2.5 MG AmLODIPine Besylate 2.5 MG 04/08/2020 12:00:00 AM EST 1.0 {tablet} activ e AmLODIPine Besylate 2.5 MG eCW1 ([facility]) Amlodipine 2.5 MG Oral Tablet AmLODIPine Besylate 2.5 MG AmLODIPine Besylate 2.5 MG 04/08/2020 12:00:00 AM EST 1.0 {tablet} activ e AmLODIPine Besylate 2.5 MG eCW1 ([facility]) Amlodipine 2.5 MG Oral Tablet AmLODIPine Besylate 2.5 MG AmLODIPine Besylate 2.5 MG 04/08/2020 12:00:00 AM EST 1.0 {tablet} activ e AmLODIPine Besylate 2.5 MG eCW1 ([facility]) Amlodipine 2.5 MG Oral Tablet AmLODIPine Besylate 2.5 MG AmLODIPine Besylate 2.5 MG 04/08/2020 12:00:00 AM EST 1.0 {tablet} activ e AmLODIPine Besylate 2.5 MG eCW1 ([facility]) Amlodipine 2.5 MG Oral Tablet AmLODIPine Besylate 2.5 MG AmLODIPine Besylate 2.5 MG 04/08/2020 12:00:00 AM EST 1.0 {tablet} activ e AmLODIPine Besylate 2.5 MG eCW1 ([facility]) Amlodipine 2.5 MG Oral Tablet AmLODIPine Besylate 2.5 MG AmLODIPine Besylate 2.5 MG 04/08/2020 12:00:00 AM EST 1.0 {tablet} activ e AmLODIPine Besylate 2.5 MG eCW1 ([facility]) Amlodipine 2.5 MG Oral Tablet amLODIPine Besylate 2.5 MG amLODIPine Besylate 2.5 MG 04/08/2020 12:00:00 AM EST 1.0 {tablet} activ e amLODIPine Besylate 2.5 MG eCW1 ([facility]) Amlodipine 2.5 MG Oral Tablet AmLODIPine Besylate 2.5 MG AmLODIPine Besylate 2.5 MG 04/08/2020 12:00:00 AM EST 1.0 {tablet} activ e AmLODIPine Besylate 2.5 MG eCW1 ([facility]) Amlodipine 5 MG Oral Tablet AmLODIPine Besylate 5 MG AmLODIP ine Besylate 5 MG 01/25/2020 12:00:00 AM EST 1.0 {tablet} active AmLODIPine Besylate 5 MG eCW1 ([facility]) Amlodipine 5 MG Oral Tablet AmLODIPine Besylate 5 MG AmLODIP ine Besylate 5 MG 01/25/2020 12:00:00 AM EST 1.0 {tablet} active AmLODIPine Besylate 5 MG eCW1 ([facility]) Amlodipine 5 MG Oral Tablet AmLODIPine Besylate 5 MG AmLODIP ine Besylate 5 MG 01/25/2020 12:00:00 AM EST 1.0 {tablet} active AmLODIPine Besylate 5 MG eCW1 ([facility]) Amlodipine 5 MG Oral Tablet AmLODIPine Besylate 5 MG AmLODIP ine Besylate 5 MG 01/25/2020 12:00:00 AM EST 1.0 {tablet} active AmLODIPine Besylate 5 MG eCW1 ([facility]) Amlodipine 5 MG Oral Tablet AmLODIPine Besylate 5 MG AmLODIP ine Besylate 5 MG 01/25/2020 12:00:00 AM EST 1.0 {tablet} active AmLODIPine Besylate 5 MG eCW1 ([facility]) Amlodipine 5 MG Oral Tablet AmLODIPine Besylate 5 MG AmLODIP ine Besylate 5 MG 01/25/2020 12:00:00 AM EST 1.0 {tablet} active AmLODIPine Besylate 5 MG eCW1 ([facility]) Acetaminophen 500 MG Oral Tablet Acetaminophen Extra S trength 500 MG Acetaminophen Extra Strength 500 MG 01/23/2020 12:00:00 AM EST 2.0 {tablets_as_needed} active Acetaminophe n Extra Strength 500 MG eCW1 ([facility]) Acetaminophen 500 MG Oral Tablet Acetaminophen Extra S trength 500 MG Acetaminophen Extra Strength 500 MG 01/23/2020 12:00:00 AM EST 2.0 {tablets_as_needed} active Acetaminophe n Extra Strength 500 MG eCW1 ([facility]) Acetaminophen 500 MG Oral Tablet Acetaminophen Extra S trength 500 MG Acetaminophen Extra Strength 500 MG 01/23/2020 12:00:00 AM EST 2.0 {tablets_as_needed} active Acetaminophe n Extra Strength 500 MG eCW1 ([facility]) Acetaminophen 500 MG Oral Tablet Acetaminophen Extra S trength 500 MG Acetaminophen Extra Strength 500 MG 01/23/2020 12:00:00 AM EST 2.0 {tablets_as_needed} active Acetaminophe n Extra Strength 500 MG eCW1 ([facility]) Acetaminophen 500 MG Oral Tablet Acetaminophen Extra S trength 500 MG Acetaminophen Extra Strength 500 MG 01/23/2020 12:00:00 AM EST 2.0 {tablets_as_needed} active Acetaminophe n Extra Strength 500 MG eCW1 ([facility]) Acetaminophen 500 MG Oral Tablet Acetaminophen Extra S trength 500 MG Acetaminophen Extra Strength 500 MG 01/23/2020 12:00:00 AM EST 2.0 {tablets_as_needed} active Acetaminophe n Extra Strength 500 MG eCW1 ([facility]) Acetaminophen 500 MG Oral Tablet Acetaminophen Extra S trength 500 MG Acetaminophen Extra Strength 500 MG 01/23/2020 12:00:00 AM EST 2.0 {tablets_as_needed} active Acetaminophe n Extra Strength 500 MG eCW1 ([facility]) Acetaminophen 500 MG Oral Tablet Acetaminophen Extra S trength 500 MG Acetaminophen Extra Strength 500 MG 01/23/2020 12:00:00 AM EST 2.0 {tablets_as_needed} active Acetaminophe n Extra Strength 500 MG eCW1 ([facility]) Acetaminophen 500 MG Oral Tablet Acetaminophen Extra S trength 500 MG Acetaminophen Extra Strength 500 MG 01/23/2020 12:00:00 AM EST 2.0 {tablets_as_needed} active Acetaminophe n Extra Strength 500 MG eCW1 ([facility]) Acetaminophen 500 MG Oral Tablet Acetaminophen Extra S trength 500 MG Acetaminophen Extra Strength 500 MG 01/23/2020 12:00:00 AM EST 2.0 {tablets_as_needed} active Acetaminophe n Extra Strength 500 MG eCW1 ([facility]) Acetaminophen 500 MG Oral Tablet Acetaminophen Extra S trength 500 MG Acetaminophen Extra Strength 500 MG 01/23/2020 12:00:00 AM EST 2.0 {tablets_as_needed} active Acetaminophe n Extra Strength 500 MG eCW1 ([facility]) Acetaminophen 500 MG Oral Tablet Acetaminophen Extra S trength 500 MG Acetaminophen Extra Strength 500 MG 01/23/2020 12:00:00 AM EST 2.0 {tablets_as_needed} active Acetaminophe n Extra Strength 500 MG eCW1 ([facility]) Acetaminophen 500 MG Oral Tablet Acetaminophen Extra S trength 500 MG Acetaminophen Extra Strength 500 MG 01/23/2020 12:00:00 AM EST 2.0 {tablets_as_needed} active Acetaminophe n Extra Strength 500 MG eCW1 ([facility]) Acetaminophen 500 MG Oral Tablet Acetaminophen Extra S trength 500 MG Acetaminophen Extra Strength 500 MG 01/23/2020 12:00:00 AM EST 2.0 {tablets_as_needed} active Acetaminophe n Extra Strength 500 MG eCW1 ([facility]) Acetaminophen 500 MG Oral Tablet Acetaminophen Extra S trength 500 MG Acetaminophen Extra Strength 500 MG 01/23/2020 12:00:00 AM EST 2.0 {tablets_as_needed} active Acetaminophe n Extra Strength 500 MG eCW1 ([facility]) Acetaminophen 500 MG Oral Tablet Acetaminophen Extra S trength 500 MG Acetaminophen Extra Strength 500 MG 01/23/2020 12:00:00 AM EST 2.0 {tablets_as_needed} active Acetaminophe n Extra Strength 500 MG eCW1 ([facility]) Acetaminophen 500 MG Oral Tablet Acetaminophen Extra S trength 500 MG Acetaminophen Extra Strength 500 MG 01/23/2020 12:00:00 AM EST 2.0 {tablets_as_needed} active Acetaminophe n Extra Strength 500 MG eCW1 ([facility]) Acetaminophen 500 MG Oral Tablet Acetaminophen Extra S trength 500 MG Acetaminophen Extra Strength 500 MG 01/23/2020 12:00:00 AM EST 2.0 {tablets_as_needed} active Acetaminophe n Extra Strength 500 MG eCW1 ([facility]) Acetaminophen 500 MG Oral Tablet Acetaminophen Extra S trength 500 MG Acetaminophen Extra Strength 500 MG 01/23/2020 12:00:00 AM EST 2.0 {tablets_as_needed} active Acetaminophe n Extra Strength 500 MG eCW1 ([facility]) Acetaminophen 500 MG Oral Tablet Acetaminophen Extra S trength 500 MG Acetaminophen Extra Strength 500 MG 01/23/2020 12:00:00 AM EST 2.0 {tablets_as_needed} active Acetaminophe n Extra Strength 500 MG eCW1 ([facility]) Acetaminophen 500 MG Oral Tablet Acetaminophen Extra S trength 500 MG Acetaminophen Extra Strength 500 MG 01/23/2020 12:00:00 AM EST 2.0 {tablets_as_needed} active Acetaminophe n Extra Strength 500 MG eCW1 ([facility]) Acetaminophen 500 MG Oral Tablet Acetaminophen Extra S trength 500 MG Acetaminophen Extra Strength 500 MG 01/23/2020 12:00:00 AM EST 2.0 {tablets_as_needed} active Acetaminophe n Extra Strength 500 MG eCW1 ([facility]) Insurance Providers Payer name Policy type / Coverage type Policy ID Covered green party ID Covered green party's relationship to lou Policy Lou Plan Information MEDICARE [id number] Bridgett [id number] W70 MEDICARE [id number] SP [id number] [employer] GOLD [id number] SP [id number] MEDICARE [id number] SP [id number] MEDICARE [id number] SP [id number] [id number] SP [id number] WELLCARE [id number] SP [id number] HUMANA GOLD [id number] SP [id number] WELLCARE [id number] SP [id number] SP [id number] MEDICARE C [id number] S [id number] MEDICAID M [id number] S [id number] SELF PAY ONLY [id number] SP [id number] MEDICARE [id number] SP [id number] [employer] GOLD [id number] SP [id number] MEDICARE [id number] SP [id number] Problems, Conditions, and Diagnoses Code Display Name Description Problem Type Effective Dates Data Source(s) R29.6 [id number] Frequent falls Problem 12/27/2020 12:00:00 A M EDT eCW1 ([facility]) E55.9 Vitamin D deficiency Vitamin D deficiency Problem 07/20/2020 12:00:00 AM EDT eCW1 ([facility]) D75.89 Macrocytosis Macrocytosis Problem 04/08/2020 12:00:00 A M EST eCW1 ([facility]) D75.89 [id number] Macrocytosis without anemia Problem 02/20/20 20 12:00:00 AM EST eCW1 ([facility]) K21.9 [id number] Gastroesophageal ref lux disease, unspecified whether esophagitis present Problem 01/07/2020 12:00:00 AM EDT eCW1 (formerly [facility]) E78.2 [id number] Mixed hyperlipidemia Problem 01/07/2020 12:0 0:00 AM EDT eCW1 ([facility]) I10 [id number] Essential hypertension Problem 01/07/2020 12 :00:00 AM EDT eCW1 ([facility]) Z86.73 [id number] History of TIA (transient ischemic attack ) Problem 01/07/2020 12:00:00 AM EDT eCW1 ([facility]) F17.210 [id number] Cigarette nicotine dependence without com plication Problem 01/07/2020 12:00:00 AM EDT eCW1 ([facility]) Surgeries/Procedures Procedure Description Date Indications Data Source(s) OFFICE OUTPATIENT VISIT 25 MINUTES 09/29/2020 12:00:00 AM EDT EL ([facility]) ECG ROUTINE ECG W/LEAST 12 LDS W/I&R 01/07/2020 12:00: 00 AM EDT eCW1 ([facility]) Immunization: Flublok Quadrivalent (18 years & older) 0.5mL IM (Influenza) 01/07/2020 12:00:00 AM EDT eCW1 ([facility]) Results ID Date Data Source [id number] 12/27/2020 12:22:00 PM EDT [facility] Name Value Range Interpretation Code Description Data Tram rce(s) Supporting Document(s) SARS coronavirus 2 RNA [Presence] in Res piratory specimen by ABY with probe detection NEGATIVE [facility] This lab was ordered by [facility] a nd reported by [facility]. ID Date Data Source [id number] 03/18/2020 10:06:34 AM EST [facility] Name Value Range Interpretation Code Description Data Tram rce(s) Supporting Document(s) &PDF [facility] [id number]/ZTJloIXWyo1LaJHmnANv4EIthTHUzC9FdeAyrARBSIP3BBNIYWs8CFVQEVY5q G [file] ICAgICAgICAgICAgICAgICAgICAgICAgICAgICAgICAgICAgICAgICAgICAgICAgICAgICAgICAgICAg ICAgICAgICAgICAgICAgICAgICAgICAgICAgICAgICAgICAgICANCiAgICAgICAgICAgICAgICAgICAg ICAgICAgICAgICAgICAgICAgICAgICAgICAgICAgIC AgICAgICAgICAgICAgICAgICAgICAgICAgICAgICAgICAgICAgICAgICAgICAgICANCiAgICAgICAgIC AgICAgICAgICAgICAgICAgICAgICAgICAgICAgICAgICAgICAgICAgICAgICAgICAgICAgICAgICAgIC AgICAgICAgICAgICAgICAgICAgICAgICAgICAgICAN CiAgICAgICAgICAgICAgICAgICAgICAgICAgICAgICAgICAgICAgICAgICAgICAgICAgICAgICAgICAg ICAgICAgICAgICAgICAgICAgICAgICAgICAgICAgICAgICAgICAgICANCiAgICAgICAgICAgICAgICAg ICAgICAgICAgICAgICAgICAgICAgICAgICAgICAgIC AgICAgICAgICAgICAgICAgICAgICAgICAgICAgICAgICAgICAgICAgICAgICAgICAgICANCiAgICAgIC AgICAgICAgICAgICAgICAgICAgICAgICAgICAgICAgICAgICAgICAgICAgICAgICAgICAgICAgICAgIC AgICAgICAgICAgICAgICAgICAgICAgICAgICAgICAg ICANCiAgICAgICAgICAgICAgICAgICAgICAgICAgICAgICAgICAgICAgICAgICAgICAgICAgICAgICAg ICAgICAgICAgICAgICAgICAgICAgICAgICAgICAgICAgICAgICAgICAgICANCiAgICAgICAgICAgICAg ICAgICAgICAgICAgICAgICAgICAgICAgICAgICAgIC AgICAgICAgICAgICAgICAgICAgICAgICAgICAgICAgICAgICAgICAgICAgICAgICAgICAgICANCiAgIC AgICAgICAgICAgICAgICAgICAgICAgICAgICAgICAgICAgICAgICAgICAgICAgICAgICAgICAgICAgIC AgICAgICAgICAgICAgICAgICAgICAgICAgICAgICAg ICAgICANCiAgICAgICAgICAgICAgICAgICAgICAgICAgICAgICAgICAgICAgICAgICAgICAgICAgICAg ICAgICAgICAgICAgICAgICAgICAgICAgICAgICAgICAgICAgICAgICAgICAgICANCjw/zQCtR2kioCJw cvY2O3xhXd3BXk3JTI8fa3PzJCOdQDtgtpCfSodGDv RtBQJgDolDGtk8HUcaRK9IuQOpO4HpR5ElESusAA4QSQVwUFLrbKXzZVEjWHXsAnP8CJLoUYniAT3MuR TlYAtnPQSzVSDhMC0YEMOdC609lxBdMW2QGc1BVnKxLN7tbk6WYNpiXJEtVvfLWtq9ZVxzFV8GlYTlB3 XmcEFnx5pOUeInS8JDCIB2CHQrGi4FNXXvHxMsVHAw BFkgOR0zEWPaTEIAoAddtjI6EP4DUI6cujFoGL2OYdRbNi8jNk9KWjCbI5QzG0EhMAXgONUYFPklHV2X JHQsQSL9JTGxETLuLIKQZbIjU92aSN8GJ3Wjn44jMgM5UJJpOxWzUAolCQ98pBauxoDomOPtsFxiED5M Cj4+DQplbmRvYmoNCnhyZWYNCjAgMjANCjAwMDAwMD PjVHVvHrH6QhGuEv4YYVRfWWLrZUPmUoXgYVTmQRZcRUenUEHtROO6WiqsKMNoHPHfCK0AIhLdKEJxXW krFFdeTFNzHYSpyj9TVLViZKDqCFT7JMKyCFAyIWMiQUewMWLnZFJpVDM1XTXgANAzLN0TWkBtYVOcVS R9LKSpURBoQWUvzj2LSUKsTFJtTcW5OtUsFJYqKMNr ULniYGGiYIXwIrI3ZMTeWPLjVF0PCgYrNOIeQJD9MRwzDWEdYSDnbq6ALQSfKDVeDHkbZyGnXMEmUOOu GXikCQUaMVR9ONE6GRNfADOnEJ4ENjSbHSBmITGwATBcZNIdPBEcfr5BGYEdTXHsNbI1HaHjBQVsSDMy ICxoNTBhRHL5FSL7AHSzJXYtIU9PZjWzRQJlRJF6Vb caRGHxBXPjrc1QFVDoRHIwYqXzOLJyODQtCWXuUEdrUUXkSZM6SjH3QSNqMQTvGO2ZLlFpSJIhTZL3Lh guLNVfQFNwid9NGFYgYLLnSqXiGnMpMSWgEZEwSCf5ndEkpHZbTRv1JL0FS6LyalCiTcJLGu2Tf674GE Q2TKSiOk3LZ2ymMc9hTEClFQVUGc1PQAu6YQQuHspt WUAdV2GyPUOeIQGdANRaAbL5EVbeDiKaVCp+JDapWaGzJ2FrWUDoFzT9UjBsLGNoWHJ7OvUvDCOeWLLr Xw3pLCJWBe1+SEiwcPCvuXkgQNFDTtX8SOY0YJbeUWGOZh3H ID Date Data Source FERRITIN 02/02/2020 12:00:00 AM EST eCW1 (formerly [facility]) Name Value Range Interpretation Code Description Data Tram rce(s) Supporting Document(s) 130 5-791 FERRITIN eCW1 ([facility]) ID Date Data Source MAGNESIUM LEVEL 02/02/2020 12:00:00 AM EST eCW1 (formerly [facility]) Name Value Range Interpretation Code Description Data Tram rce(s) Supporting Document(s) 2.1 1.8-2.4 MAGNESIUM LEVEL eCW1 ([facility]) ID Date Data Source IRON (FE) 02/02/2020 12:00:00 AM EST eCW1 (formerly [facility]) Name Value Range Interpretation Code Description Data Tram rce(s) Supporting Document(s) 112 50-170 IRON (FE) eCW1 ([facility]) ID Date Data Source Comprehensive Metabolic Profile (CMP) 02/02/2020 12:00:00 AM EST eCW1 ([facility]) Name Value Range Interpretation Code Description Data Tram rce(s) Supporting Document(s) 90 70-100 GLUCOSE, FASTING eCW1 (formerly [facility]) 137 136-145 SODIUM LEVEL eCW1 ([facility]) 3 7-18 BLOOD UREA NITROGEN eCW1 ([facility]) 0.58 0.55-1.30 CREATININE FOR GFR eCW1 ([facility]) > 60.0 >39 GLOMERULAR FILTRATION RATE eCW 1 ([facility]) 4.2 3.5-5.1 POTASSIUM SERUM eCW1 ([facility]) 9.2 8.8-10.2 CALCIUM LEVEL eCW1 ([facility]) 25 21-32 CARBON DIOXIDE LEVEL eCW1 ([facility]) 104 98-107 CHLORIDE LEVEL eCW1 ([facility]) 26 7-37 AST/SGOT eCW1 ([facility]) 0.3 0.2-1.0 BILIRUBIN,TOTAL eCW1 ([facility]) 6.5 6.4-8.2 TOTAL PROTEIN eCW1 ([facility]) 2.8 3.2-5.2 ALBUMIN eCW1 ([facility]) 23 12-78 ALT/SGPT eCW1 ([facility]) 115 45-117 ALKALINE PHOSPHATASE eCW1 ([facility]) 0.8 1.2-2.2 ALBUMIN/GLOBULIN RATIO eCW1 ([facility]) ID Date Data Source CBC with Differential 02/02/2020 12:00:00 AM EST eCW1 ([facility]) Name Value Range Interpretation Code Description Data Tram rce(s) Supporting Document(s) 4.09 4.00-5.40 RED BLOOD COUNT eCW1 ([facility]) 7.5 4.0-10.0 WHITE BLOOD COUNT eCW1 ([facility]) 14.5 12.0-15.5 HEMOGLOBIN eCW1 ([facility]) 107.6 80.0-96.0 MEAN CORPUSCULAR VOLUME e CW1 ([facility]) 33.0 32.0-36.5 MEAN CORPUSCULAR HGB CONC eCW1 ([facility]) 35.5 27.0-33.0 MEAN CORPUSCULAR HEMOGLOB IN eCW1 ([facility]) 44.0 36.0-47.0 HEMATOCRIT eCW1 ([facility]) 44.0 36.0-66.0 NEUTROPHILS % eCW1 ([facility]) 339 150-450 PLATELET COUNT, AUTOMATED eCW1 ([facility]) 13.2 11.5-14.5 RED CELL DISTRIBUTION WID TH eCW1 ([facility]) 44.6 24.0-44.0 LYMPH % eCW1 ([facility]) 1.6 0.0-3.0 EOS % eCW1 ([facility]) 3.3 1.5-8.5 NEUTROPHILS # eCW1 ([facility]) 8.4 0.0-5.0 MONO % eCW1 ([facility]) 1.1 0.0-1.0 BASO % eCW1 ([facility]) 3.3 1.5-5.0 LYMPH # eCW1 ([facility]) 0.1 0.0-0.2 BASO # eCW1 ([facility]) 0.6 0.0-0.8 MONO # eCW1 ([facility]) 0.1 0.0-0.5 EOS # eCW1 ([facility]) ID Date Data Source FREE T4 & TSH PANEL 01/08/2020 04:13:07 AM EDT eCW1 (formerly [facility]) Name Value Range Interpretation Code Description Data Tram rce(s) Supporting Document(s) 1.32 eCW1 ([facility]) 0.859 eCW1 ([facility]) Procedure Social History Code Duration Value Status Description Data Source(s ) Smoking 12/27/2020 12:00:00 AM EDT Current Smoker completed Curre nt Smoker eCW1 ([facility]) Smoking 12/27/2020 12:00:00 AM EDT Current Smoker completed Curre nt Smoker eCW1 ([facility]) Smoking 12/27/2020 12:00:00 AM EDT Current Smoker completed Curre nt Smoker eCW1 ([facility]) Smoking 11/08/2020 12:00:00 AM EDT Current Smoker completed Curre nt Smoker eCW1 ([facility]) Smoking 08/26/2020 12:00:00 AM EDT Current Smoker completed Curre nt Smoker eCW1 ([facility]) Smoking 08/26/2020 12:00:00 AM EDT Current Smoker completed Curre nt Smoker eCW1 ([facility]) Smoking 07/20/2020 12:00:00 AM EDT Current Smoker completed Curre nt Smoker eCW1 ([facility]) Smoking 07/20/2020 12:00:00 AM EDT Current Smoker completed Curre nt Smoker eCW1 ([facility]) Smoking 07/20/2020 12:00:00 AM EDT Current Smoker completed Curre nt Smoker eCW1 ([facility]) Smoking 07/08/2020 12:00:00 AM EDT Current Smoker completed Curre nt Smoker eCW1 ([facility]) Smoking 07/08/2020 12:00:00 AM EDT Current Smoker completed Curre nt Smoker eCW1 ([facility]) Smoking 04/08/2020 12:00:00 AM EST Current Smoker completed Curre nt Smoker eCW1 ([facility]) Smoking 04/08/2020 12:00:00 AM EST Current Smoker completed Curre nt Smoker eCW1 ([facility]) Smoking 04/08/2020 12:00:00 AM EST Current Smoker completed Curre nt Smoker eCW1 ([facility]) Smoking 04/08/2020 12:00:00 AM EST Current Smoker completed Curre nt Smoker eCW1 ([facility]) Smoking 04/08/2020 12:00:00 AM EST Current Smoker completed Curre nt Smoker eCW1 ([facility]) Smoking 04/08/2020 12:00:00 AM EST Current Smoker completed Curre nt Smoker eCW1 ([facility]) Smoking 04/08/2020 12:00:00 AM EST Current Smoker completed Curre nt Smoker eCW1 ([facility]) Smoking 04/08/2020 12:00:00 AM EST Current Smoker completed Curre nt Smoker eCW1 ([facility]) Smoking 02/20/2020 12:00:00 AM EST Current Smoker completed Curre nt Smoker eCW1 ([facility]) Smoking 02/20/2020 12:00:00 AM EST Current Smoker completed Curre nt Smoker eCW1 ([facility]) Smoking 02/20/2020 12:00:00 AM EST Current Smoker completed Curre nt Smoker eCW1 ([facility]) Smoking 02/02/2020 12:00:00 AM EST Current Smoker completed Curre nt Smoker eCW1 ([facility]) Smoking 01/07/2020 12:00:00 AM EDT Current Smoker completed Curre nt Smoker eCW1 ([facility]) Smoking 01/07/2020 12:00:00 AM EDT Current Smoker completed Curre nt Smoker eCW1 ([facility]) Smoking 01/07/2020 12:00:00 AM EDT Current Smoker completed Curre nt Smoker eCW1 ([facility]) Smoking 01/07/2020 12:00:00 AM EDT Current Smoker completed Curre nt Smoker eCW1 ([facility]) Vital Signs ID Date Data Source UNK Name Value Range Interpretation Code Description Data Source(s) Body weight 134 [lb_av] 134 [lb_av] eCW1 ([facility]) Body height 65 [in_i] 65 [in_i] eCW1 (formerly [facility]) Body mass index (BMI) [Ratio] 22.30 kg/m2 22.30 kg/m2 eCW1 ([facility]) Heart rate 98 /min 98 /min eCW1 ([facility]) Respiratory rate 18 /min 18 /min eCW1 ([facility]) Body temperature 97.1 [degF] 97.1 [degF] eCW1 ( [facility]) Systolic blood pressure 100 mm[Hg] 100 mm[Hg] e CW1 ([facility]) Diastolic blood pressure 58 mm[Hg] 58 mm[Hg] eCW1 ([facility]) Systolic blood pressure 134 mm[Hg] 134 mm[Hg] M EDENT ([facility]) Diastolic blood pressure 68 mm[Hg] 68 mm[Hg] MEDENT ([facility]) Body height 64 [in_i] 64 [in_i] [facility] ([facility]) 5'4" Body weight 142.00 [lb_av] 142.00 [lb_av] MEDEN T ([facility]) Body mass index (BMI) [Ratio] 24.4 kg/m2 24.4 k g/m2 [facility] ([facility]) [place] body weight 120 [lb_av] 120 [facility]_av[facility] Body weight 64.411 kg 64.411 kg [facility] ([facility]) Body surface area Derived from formula 1.69 m2 1.69 m2 [facility] ([facility]) Body weight 143 [lb_av] 143 [lb_av] eCW1 ([facility]) Body height 65 [in_i] 65 [in_i] eCW1 (formerly [facility]) Body mass index (BMI) [Ratio] 23.79 kg/m2 23.79 kg/m2 W1 ([facility]) Heart rate 101 /min 101 /min eCW1 ([facility]) Respiratory rate 18 /min 18 /min eCW1 ([facility]) Body temperature 96.8 [degF] 96.8 [degF] eCW1 ( [facility]) Systolic blood pressure 98 mm[Hg] 98 mm[Hg] e CW1 ([facility]) Diastolic blood pressure 60 mm[Hg] 60 mm[Hg] eCW1 ([facility]) Body weight 140 [lb_av] 140 [lb_av] eCW1 ([facility]) Body height 65 [in_i] 65 [in_i] eCW1 ([facility]) Body mass index (BMI) [Ratio] 23.29 kg/m2 23.29 kg/m2 eCW1 ([facility]) Heart rate 93 /min 93 /min eCW1 ([facility]) Respiratory rate 18 /min 18 /min eCW1 ([facility]) Body temperature 97.4 [degF] 97.4 [degF] eCW1 ( [facility]) Systolic blood pressure 122 mm[Hg] 122 mm[Hg] e CW1 ([facility]) Diastolic blood pressure 60 mm[Hg] 60 mm[Hg] eCW1 ([facility]) Body weight 140 [lb_av] 140 [lb_av] eCW1 ([facility]) Body height 65 [in_i] 65 [in_i] eCW1 (formerly [facility]) Body mass index (BMI) [Ratio] 23.29 kg/m2 23.29 kg/m2 eCW1 ([facility]) Heart rate 92 /min 92 /min eCW1 ([facility]) Respiratory rate 18 /min 18 /min eCW1 ([facility]) Body temperature 98.1 [degF] 98.1 [degF] eCW1 ( [facility]) Systolic blood pressure 138 mm[Hg] 138 mm[Hg] e CW1 ([facility]) Diastolic blood pressure 78 mm[Hg] 78 mm[Hg] eCW1 ([facility]) Respiratory rate 18 /min 18 /min eCW1 ([facility]) Heart rate 92 /min 92 /min eCW1 ([facility]) Body temperature 96.5 [degF] 96.5 [degF] eCW1 ( [facility]) Systolic blood pressure 116 mm[Hg] 116 mm[Hg] e CW1 ([facility]) Diastolic blood pressure 60 mm[Hg] 60 mm[Hg] eCW1 ([facility]) Body weight 134 [lb_av] 134 [lb_av] eCW1 ([facility]) Body height 65 [in_i] 65 [in_i] eCW1 ([facility]) Body mass index (BMI) [Ratio] 22.30 kg/m2 22.30 kg/m2 eCW1 ([facility]) Body height 65 [in_i] 65 [in_i] eCW1 ([facility]) Body mass index (BMI) [Ratio] 22.30 kg/m2 22.30 kg/m2 eCW1 ([facility]) Body weight 134 [lb_av] 134 [lb_av] eCW1 ([facility]) Body temperature 97.3 [degF] 97.3 [degF] eCW1 ( [facility]) Respiratory rate 18 /min 18 /min eCW1 ([facility]) Heart rate 101 /min 101 /min eCW1 ([facility]) Systolic blood pressure 120 mm[Hg] 120 mm[Hg] e CW1 ([facility]) Diastolic blood pressure 60 mm[Hg] 60 mm[Hg] eCW1 ([facility]) Body weight 135.4 [lb_av] 135.4 [lb_av] eCW1 ([facility]) Body height 65 [in_i] 65 [in_i] eCW1 ([facility]) Body mass index (BMI) [Ratio] 22.53 kg/m2 22.53 kg/m2 eCW1 ([facility]) Heart rate 93 /min 93 /min eCW1 ([facility]) Respiratory rate 18 /min 18 /min eCW1 ([facility]) Body temperature 98.2 [degF] 98.2 [degF] eCW1 ( [facility]) Systolic blood pressure 122 mm[Hg] 122 mm[Hg] e CW1 ([facility]) Diastolic blood pressure 62 mm[Hg] 62 mm[Hg] eCW1 ([facility]) Body weight 135 [lb_av] 135 [lb_av] eCW1 ([facility]) Body height 65 [in_i] 65 [in_i] eCW1 (formerly [facility]) Body mass index (BMI) [Ratio] 22.46 kg/m2 22.46 kg/m2 eCW1 ([facility]) Heart rate 101 /min 101 /min eCW1 ([facility]) Respiratory rate 20 /min 20 /min eCW1 ([facility]) Body temperature 96 [degF] 96 [degF] eCW1 ([facility]) Systolic blood pressure 120 mm[Hg] 120 mm[Hg] e CW1 ([facility]) Diastolic blood pressure 62 mm[Hg] 62 mm[Hg] eCW1 ([facility]) Body height 65 [in_i] 65 [in_i] [facility] ([facility], ) 5'5" Systolic blood pressure 130 mm[Hg] 130 [facility] Diastolic blood pressure 70 mm[Hg] 70 mm[Hg] [facility] ([facility], ) [place] body weight 125 [lb_av] 125 [lb_av] [facility] Body weight 61.009 kg 61.009 kg [facility] Body surface area Derived from formula 1.67 m2 1.67 m2 [facility] ([facility], ) Body weight 134.50 [lb_av] 134.50 [lb_av] MEDEN T ([facility], ) Body mass index (BMI) [Ratio] 22.4 kg/m2 22.4 k g/m2 [facility] ([facility], ) Patient Treatment Plan of Care Planned Activity Planned Date Details Description Data Source (s) Vitamin D3 125 MCG (5000 UT) 07/22/2020 12:00:00 AM EDT eCW1 ([facility]) Vitamin D3 125 MCG (5000 UT) 07/22/2020 12:00:00 AM EDT eCW1 ([facility]) Naproxen 375 MG Oral Tablet 07/20/2020 12:00:00 AM EDT eCW1 ([facility]) Naproxen 375 MG Oral Tablet 07/20/2020 12:00:00 AM EDT eCW1 ([facility]) Naproxen 375 MG Oral Tablet 07/20/2020 12:00:00 AM EDT eCW1 ([facility]) Alendronic acid 70 MG Oral Tablet 04/29/2020 12:00:00 AM EST eCW1 ([facility]) Alendronic acid 70 MG Oral Tablet 04/29/2020 12:00:00 AM EST eCW1 ([facility]) Alendronic acid 70 MG Oral Tablet 04/29/2020 12:00:00 AM EST eCW1 ([facility]) Alendronic acid 70 MG Oral Tablet 04/29/2020 12:00:00 AM EST eCW1 ([facility]) Amlodipine 2.5 MG Oral Tablet 04/08/2020 12:00:00 AM EST eCW1 ([facility]) Amlodipine 2.5 MG Oral Tablet 04/08/2020 12:00:00 AM EST eCW1 ([facility]) Amlodipine 2.5 MG Oral Tablet 04/08/2020 12:00:00 AM EST eCW1 ([facility]) Amlodipine 2.5 MG Oral Tablet 04/08/2020 12:00:00 AM EST eCW1 ([facility]) Amlodipine 2.5 MG Oral Tablet 04/08/2020 12:00:00 AM EST eCW1 ([facility]) Amlodipine 2.5 MG Oral Tablet 04/08/2020 12:00:00 AM EST eCW1 ([facility]) Amlodipine 2.5 MG Oral Tablet 04/08/2020 12:00:00 AM EST eCW1 ([facility]) Amlodipine 2.5 MG Oral Tablet 04/08/2020 12:00:00 AM EST eCW1 ([facility]) Amlodipine 2.5 MG Oral Tablet 04/08/2020 12:00:00 AM EST eCW1 ([facility]) Amlodipine 2.5 MG Oral Tablet 04/08/2020 12:00:00 AM EST eCW1 ([facility]) Amlodipine 5 MG Oral Tablet 01/25/2020 12:00:00 AM EST eCW1 ([facility]) Acetaminophen 500 MG Oral Tablet 01/23/2020 12:00:00 AM EST eCW1 ([facility]) Acetaminophen 500 MG Oral Tablet 01/23/2020 12:00:00 AM EST eCW1 ([facility]) Acetaminophen 500 MG Oral Tablet 01/23/2020 12:00:00 AM EST eCW1 ([facility])
[2021-01-21] MEDS ORDERED: CIPROFLOXACIN 400 MG in IV 1 EA IV SCH (02:00)
--- NOTE | 2021-01-21 02:48 | HPEPDOC ---
[facility] Medical History & Physical Date of Admission Jan 21, 2021 Date of Service: Jan 21, 2021 History and Physical CHIEF COMPLAINT: diarrhea HISTORY OF PRESENT ILLNESS: 75 yo F with a PMHx of HLD, HTN, GERD, ovarian and uterine cancers, presented to ER with a 2 day hx of SOB, as well as abdominal pain with reduced PO intake. She was found to be covid-19 positive in the ER. CT abdomen showed sigmoid colitis with possible ileus. Dr. Hare was called from ER, who recommended a course of antiobiotics. Patient will be admitted to hospitalist service for management of colitis. PAST MEDICAL HISTORY: 1. Hyperlipidemia. 2. History of hypertension. 3. GERD. 4. History of ovarian and uterine cancer PAST SURGICAL HISTORY: 1. Hysterectomy. 2. Cholecystectomy. 3. Breast surgery. 4. Right hemicolectomy, pathology showed large tubovillous adenoma, with rare foci of superficial high-grade dysplasia SOCIAL HISTORY: Smoker, 1 ppd Rare etoh use Denies illicit drug use FAMILY HISTORY: Reviewed with patient, no pertinent family history ALLERGIES: Please see below. REVIEW OF SYSTEMS: 10 point ROS conducted, relevant findings are noted on HPI HOME MEDICATIONS: Please see below. PHYSICAL EXAMINATION: VITAL SIGNS: please see below General: NAD, comfortable HEENT: PERRLA, EOMI, sclerae clear Neck: supple, normal ROM, no JVD Respiratory: lungs CTAB, no wheeze, no rales, no crackles CVS: RRR, normal S1, S2, no murmurs Abdo: soft, no masses, no hepatosplenomegaly, BS+, no rebound tenderness Extremities: no edema, pulses 2+ MSK: no joint deformities, normal ROM Neuro: no focal neuro deficits, moving all 4 extremities, CN2-12 intact. Strength 5/5 in all 4 extremities. No nystagmus. Psych: calm, cooperative, AAO x 3 LABORATORY DATA: See below. IMAGING: CT abdo pelvis w IV and oral contrast (01/20/21): 1. Sigmoid colitis, with associated ileus or early obstruction. 2. Diverticulosis coli. 3. Hepatic steatosis. 4. Right basilar atelectasis. MICROBIOLOGY: Please see below. ASSESSMENT: 75 yo F with a PMHx of HLD, HTN, GERD, ovarian and uterine cancers, presented to ER with a 2 day hx of SOB, as well as abdominal pain with reduced PO intake. She was found to be covid-19 positive in the ER. CT abdomen showed sigmoid colitis with possible ileus. Dr. Hare was called from ER, who recommended a course of antiobiotics. Patient will be admitted to hospitalist service for management of colitis. Despite a diagnosis of Covid-19, patient is saturating well on RA. . PLAN: #Sigmoid colitis: seen on CT, reviewed above. Start ciprofloxacin 400 mg IV q12h and metronidazole 500 mg q8h IV. Bowel rest. Tylenol for fevers. Tylenol for pain, appears to be mild. NS at 125 cc/hr. #Hx of HTN: start amlodipine. #Hx of Tubulovillious adenma of ascending colon: s/p R hemicolectomy 10/2019. #Macrocytic anemia: follows with hematology. DVT ppx: SCDpercos. TEDs. Vital Signs Vital Signs Date Time Temp Pulse Resp B/P (MAP) Pulse Ox O2 Delivery O2 Flow Rate FiO2 01/20/21 23:50 18 96 01/20/21 22:30 119/56 (77) 01/20/21 22:29 89 01/20/21 18:02 97.7 Room Air Laboratory Data Labs 24H Laboratory Tests 2 01/20/21 17:57: Immature Granulocyte % (Auto) 0.6, Neutrophils (%) (Auto) 64.7, Lymphocytes (%) (Auto) 23.8L, Monocytes (%) (Auto) 9.9H, Eosinophils (%) (Auto) 0.4, Basophils (%) (Auto) 0.6, Neutrophils # (Auto) 5.1, Lymphocytes # (Auto) 1.9, Monocytes # (Auto) 0.8, Eosinophils # (Auto) 0.0, Basophils # (Auto) 0.1, Nucleated Red Blood Cells % (auto) 0.0, Lactic Acid Level 1.3, Total Bilirubin 1.0, Direct Bilirubin 0.5H, Aspartate Amino Transf (AST/SGOT) 41H, Alanine Aminotransferase (ALT/SGPT) 38, Alkaline Phosphatase 218H, Total Protein 6.0L, Albumin 2.2L, Albumin/Globulin Ratio 0.6L, Lipase 115 01/20/21 18:02: POC Glucose (Misc Panel) 88, POC Sodium (Misc Panel) 135L, POC Potassium (Misc Panel) 3.5, POC Chloride (Misc Panel) 97L, POC Total CO2 (Misc Panel) 25.0, POC Blood Urea Nitrogen (Misc Panel 6L, POC Ionized Calcium (Misc Panel) 4.5, POC Creatinine (Misc Panel) 0.5L, POC Hematocrit (Misc Panel) 42.0 01/20/21 19:38: Coronavirus (COVID-19)(PCR) POSITIVEA, Influenza Type A (RT-PCR) NEGATIVE, Influenza Type B (RT-PCR) NEGATIVE, Respiratory Syncytial Virus (PCR) NEGATIVE CBC/BMP Laboratory Tests 01/20/21 17:57 Home Medications Scheduled Lidocaine (Lidocaine) 5% Adh..patch, 1 PATCH TD DAILY Multivitamins (Thera M Plus Tablet) 1 Each Tablet, 1 TAB PO DAILY Naproxen (Naproxen) 500 Mg Tablet, 1 TAB PO BID for pain Scheduled PRN Acetaminophen (Tylenol Extra Strength) 500 Mg Tablet, 1,000 MG PO Q6H PRN for PAIN Allergies Coded Allergies: bee pollen (Verified Allergy, Severe, stops breathing, 12/27/20) codeine (Verified Allergy, Severe, stopped breathing , 12/27/20) morphine (Verified Allergy, Severe, stopped breathing, 12/27/20) oxycodone (Verified Allergy, Severe, stopped breathing, 12/27/20) atorvastatin (Verified Allergy, Intermediate, hives, 12/27/20) alendronate sodium (Verified Allergy, Unknown, gives her vomiting and diarrhra, 12/27/20) A-FIB/CHADSVASC A-FIB History Current/History of A-Fib/PAF?: No YANET LINDSEY MD Jan 21, 2021 02:48
[2021-01-21 03:02] LABS: C REACTIVE PROTEIN QUANTITATIV < 0.30 MG/DL (0.00-0.30); CPK CREATINE PHOSPHOKINASE 28 U/L (26-192); FERRITIN 656 NG/ML (8-252); LDH LACTATE DEHYDROGENASE 241 U/L (84-246); TROPONIN I < 0.02 NG/ML (< 0.10)
[2021-01-21] MEDS: CIPROFLOXACIN 400 MG in IV 1 EA IV SCH ×2 (03:38→15:58)
[2021-01-21] MEDS: NS 1,000 ML IV SCH ×2 (04:41→13:54)
[2021-01-21] MEDS ORDERED: HOME MED LIST COMPLETE! XX SCH (06:40)
[2021-01-21 06:46] LABS: BASO # 0.1 10^3/uL (0.0-0.2); BASO % 0.7 % (0.0-1.0); EOS % 0.6 % (0.0-3.0); HEMATOCRIT 32.4 % (36.0-47.0); LYMPH # 1.7 10^3/uL (1.5-5.0); LYMPH % 24.6 % (24.0-44.0); MEAN CORPUSCULAR HEMOGLOBIN 35.4 pg (27.0-33.0); MEAN CORPUSCULAR HGB CONC 34.9 g/dl (32.0-36.5); MEAN CORPUSCULAR VOLUME 101.6 fl (80.0-96.0); MONO # 0.8 10^3/uL (0.0-0.8); MONO % 11.1 % (2.0-8.0); NEUTROPHILS # 4.2 10^3/uL (1.5-8.5); NEUTROPHILS % 62.4 % (36.0-66.0); PLATELET COUNT, AUTOMATED 254 10^3/uL (150-450); RED BLOOD COUNT 3.19 10^6/uL (4.00-5.40); WHITE BLOOD COUNT 6.8 10^3/uL (4.0-10.0)
[2021-01-21 06:54] LABS: HEMOGLOBIN 11.3 g/dl (12.0-15.5)
[2021-01-21 06:55] LABS: INR 0.98; PROTHROMBIN TIME 13.4 SECONDS (12.7-14.5)
[2021-01-21 06:56] LABS: PARTIAL THROMBOPLASTIN TIME 31.6 SECONDS (25.9-37.0)
[2021-01-21 06:59] LABS: D-DIMER QUANT 1309.82 ng/ml (<500)
[2021-01-21 07:02] LABS: ALBUMIN 1.6 GM/DL (3.2-5.2); ALT/SGPT 30 U/L (12-78); BILIRUBIN,TOTAL 0.9 MG/DL (0.2-1.0); BLOOD UREA NITROGEN 7 MG/DL (7-18); CALCIUM LEVEL 7.6 MG/DL (8.8-10.2); CARBON DIOXIDE LEVEL 25 MEQ/L (21-32); CHLORIDE LEVEL 105 MEQ/L (98-107); CREATININE FOR GFR 0.39 MG/DL (0.55-1.30); GLOMERULAR FILTRATION RATE > 60.0 (>39); GLUCOSE, FASTING 71 MG/DL (70-100); MAGNESIUM LEVEL 1.9 MG/DL (1.8-2.4); POTASSIUM SERUM 3.3 MEQ/L (3.5-5.1); SODIUM LEVEL 138 MEQ/L (136-145); TOTAL PROTEIN 4.7 GM/DL (6.4-8.2)
--- NOTE | 2021-01-21 08:33 | REP ---
INDICATION: elevated ALP. COMPARISON: None TECHNIQUE: Real-time sonographic evaluation of the right upper quadrant with Doppler FINDINGS: Multiple ultrasonographic images of the liver shows diffuse increased echos throughout the hepatic parenchyma without evidence of a mass or ductal dilatation. The common bile duct measures approximately 12 mm in its greatest transverse dimension. Images of the pancreatic region show no gross abnormality. The imaged portion of the right kidney is unremarkable. IMPRESSION: Status post cholecystectomy. Fatty infiltration of the liver. The CBD is upper limits of normal for the patient's age and post cholecystectomy state. Accredited by the [employer] in General Ultrasound. <Electronically signed by Juan Gregorio > 01/21/21 [id number]
[2021-01-21] MEDS: amLODIPine 5 MG TAB PO SCH (09:47)
--- NOTE | 2021-01-21 14:08 | IPNPDOC ---
Text Note Date of Service The patient was seen on 01/21/21. NOTE SUBJECTIVE: -No acute events overnight OBJECTIVE: VITAL SIGNS: please see below General: NAD HEENT: PERRLA, EOMI, sclerae clear Neck: supple, normal ROM, no JVD Respiratory: lungs CTAB, no wheeze, no rales, no crackles CVS: RRR, normal S1, S2, no murmurs Abdo: Normoactive bowel sounds, soft, no masses, no hepatosplenomegaly, no rebound tenderness Extremities: no edema, pulses 2+ MSK: no joint deformities, normal ROM Neuro: no focal neuro deficits, moving all 4 extremities, CN2-12 intact. Strength 5/5 in all 4 extremities. Psych: calm, cooperative, AAO x 3 LABORATORY DATA: Reviewed WBC 6.8 hgb 11.3 platelets 254 na 138 K 3.3 (repleted) Cr 0.39 Mag 1.9 IMAGING: CT abdo pelvis w IV and oral contrast (01/20/21): 1. Sigmoid colitis, with associated ileus or early obstruction. 2. Diverticulosis coli. 3. Hepatic steatosis. 4. Right basilar atelectasis. MICROBIOLOGY: Please see below. ASSESSMENT: 75 yo F with a PMHx of HLD, HTN, GERD, ovarian and uterine cancers, presented to ER with a 2 day hx of SOB, as well as abdominal pain with reduced PO intake and was diagnosed with covid-19 positive in the ER and now admitted for sigmoid colitis with a CT abdomen that showed sigmoid colitis now on empiric antiobiotics. PLAN: #Sigmoid colitis: seen on CT, reviewed above. -ciprofloxacin 400 mg IV q12h and metronidazole 500 mg q8h IV. Will consider PO abx after eval for tolerance of PO and N/V -Tylenol PRN for fevers. -NS at 100 cc/hr. -start at clear liquid diet -GI panel was negative Covid-19 infection: -Has GI symptoms, on IVF and empiric abx -Breathing comfortably on room air -daily labs -droplet and contact isolation #Hx of HTN: -amlodipine. DVT ppx: SCD. TEDs. VS,Fishbone, I+O VS, Fishbone, I+O Laboratory Tests 01/20/21 17:57 01/21/21 06:13 Vital Signs Date Time Temp Pulse Resp B/P (MAP) Pulse Ox O2 Delivery O2 Flow Rate FiO2 01/21/21 08:00 70 123/60 (81) 96 01/20/21 23:50 18 01/20/21 18:02 97.7 Room Air I&O- Last 24 Hours up to 6 AM 01/21/21 06:00 Intake Total 1240 ml Balance 1240 ml ALFONSO CEDILLO MD Jan 21, 2021 10:07
[2021-01-21 16:30] VITALS: BP 130/60
[2021-01-21 20:00] VITALS: BP 140/63
[2021-01-21] MEDS: ONDANSETRON 4MG/2ML VIAL IV PRN (20:29)
[2021-01-21] MEDS: ACETAMINOPHEN TAB 650MG DOSE (2X325MG) PO PRN (22:17)
[2021-01-22] MEDS: metroNIDAZOLE 500 MG in IV 1 EA IV SCH (00:24)
[2021-01-22] MEDS: CIPROFLOXACIN 400 MG in IV 1 EA IV SCH (02:06)
[2021-01-22] MEDS: NS 1,000 ML IV SCH ×2 (02:06→08:42)
[2021-01-22 04:00] VITALS: BP 130/75
[2021-01-22] MEDS: VANCOMYCIN ORAL SOL 250MG/5ML ORAL SYRINGE PO SCH ×5 (06:23→23:48)
[2021-01-22] MEDS: LACTOBACILLUS ACIDOPHILUS CAP (BACID) PO SCH (08:42)
[2021-01-22] MEDS: amLODIPine 5 MG TAB PO SCH (08:43)
[2021-01-22 11:16] LABS: HEMATOCRIT 32.5 % (36.0-47.0); HEMOGLOBIN 11.1 g/dl (12.0-15.5); MEAN CORPUSCULAR HEMOGLOBIN 35.1 pg (27.0-33.0); MEAN CORPUSCULAR HGB CONC 34.2 g/dl (32.0-36.5); MEAN CORPUSCULAR VOLUME 102.8 fl (80.0-96.0); PLATELET COUNT, AUTOMATED 231 10^3/uL (150-450); RED BLOOD COUNT 3.16 10^6/uL (4.00-5.40)
[2021-01-22 11:49] LABS: BLOOD UREA NITROGEN 3 MG/DL (7-18); CALCIUM LEVEL 7.4 MG/DL (8.8-10.2); CARBON DIOXIDE LEVEL 23 MEQ/L (21-32); CHLORIDE LEVEL 108 MEQ/L (98-107); CREATININE FOR GFR 0.48 MG/DL (0.55-1.30); GLOMERULAR FILTRATION RATE > 60.0 (>39); GLUCOSE, FASTING 127 MG/DL (70-100); MAGNESIUM LEVEL 1.5 MG/DL (1.8-2.4); POTASSIUM SERUM 2.8 MEQ/L (3.5-5.1); SODIUM LEVEL 139 MEQ/L (136-145)
[2021-01-22] MEDS ORDERED: MAG SULF 1GM/100ML (MAG RUN) 1 GM in IV 1 EA IV ONE (12:20)
--- NOTE | 2021-01-22 12:21 | IPNPDOC ---
Text Note Date of Service The patient was seen on 01/22/21. NOTE SUBJECTIVE: -No acute events overnight -GI panel came back positive for C.diff, was started on oral vanc OBJECTIVE: VITAL SIGNS: please see below General: NAD HEENT: PERRLA, EOMI, sclerae clear Neck: supple, normal ROM, no JVD Respiratory: lungs CTAB, no wheeze, no rales, no crackles CVS: RRR, normal S1, S2, no murmurs Abdo: Normoactive bowel sounds, soft, no masses, no hepatosplenomegaly, no rebound tenderness Extremities: no edema, pulses 2+ MSK: no joint deformities, normal ROM Neuro: no focal neuro deficits, moving all 4 extremities, CN2-12 intact. Strength 5/5 in all 4 extremities. Psych: calm, cooperative, AAO x 3 LABORATORY DATA: Reviewed, pending AM labs IMAGING: CT abdo pelvis w IV and oral contrast (01/20/21): 1. Sigmoid colitis, with associated ileus or early obstruction. 2. Diverticulosis coli. 3. Hepatic steatosis. 4. Right basilar atelectasis. MICROBIOLOGY: Please see below. ASSESSMENT: 75 yo F with a PMHx of HLD, HTN, GERD, ovarian and uterine cancers, presented to ER with a 2 day hx of SOB, as well as abdominal pain with reduced PO intake and was diagnosed with covid-19 positive in the ER and now admitted for sigmoid colitis with a CT abdomen that showed sigmoid colitis now on empiric antiobiotics. PLAN: #C.difficle colitis: Sigmoid colitis seen on CT, and GI panel positive for C.difficile. -DC IV ciprofloxacin/flagyl -continue the PO vanc 125Q6H started overnight -probiotic with meals -Tylenol PRN for fevers. -NS at 100 cc/hr. -regular diet Covid-19 infection: -Has GI symptoms likely 2/2 ongoing c.diff, on IVF and PO vanc -Otherwise breathing comfortably on room air -daily labs -droplet and contact isolation #Hx of HTN: -amlodipine. DVT ppx: SCD. TEDs. VS,Fishbone, I+O VS, Fishbone, I+O Vital Signs Date Time Temp Pulse Resp B/P (MAP) Pulse Ox O2 Delivery O2 Flow Rate FiO2 01/22/21 04:00 97.3 74 18 130/75 (93) 96 Room Air I&O- Last 24 Hours up to 6 AM 01/22/21 06:00 Intake Total 3550 ml Output Total 750 ml Balance 2800 ml ALFONSO CEDILLO MD Jan 22, 2021 09:09
[2021-01-22] MEDS: POTASSIUM CHLORIDE 10MEQ SR TABLET PO ONE ×2 (12:29→12:34)
[2021-01-22 14:00] VITALS: BP 128/60
[2021-01-22] MEDS: KCL 20MEQ in NS 1000ML 1,000 ML IV SCH ×2 (15:00→23:48)
[2021-01-22] MEDS ORDERED: POTASSIUM CHLORIDE 10% LIQ 20 MEQ/15 ML UDC PO ONE (15:15)
[2021-01-22 19:56] VITALS: BP 160/74
[2021-01-22 20:00] VITALS: BP 115/56
[2021-01-22] MEDS: ONDANSETRON 4MG/2ML VIAL IV PRN (20:35)
[2021-01-23 04:00] VITALS: BP 130/60
[2021-01-23] MEDS: VANCOMYCIN ORAL SOL 250MG/5ML ORAL SYRINGE PO SCH ×3 (05:20→17:01)
[2021-01-23] MEDS: ONDANSETRON 4MG/2ML VIAL IV PRN ×2 (06:16→17:07)
[2021-01-23 07:37] LABS: HEMATOCRIT 33.9 % (36.0-47.0); HEMOGLOBIN 11.6 g/dl (12.0-15.5); MEAN CORPUSCULAR HEMOGLOBIN 36.7 pg (27.0-33.0); MEAN CORPUSCULAR HGB CONC 34.2 g/dl (32.0-36.5); MEAN CORPUSCULAR VOLUME 107.3 fl (80.0-96.0); PLATELET COUNT, AUTOMATED 213 10^3/uL (150-450); RED BLOOD COUNT 3.16 10^6/uL (4.00-5.40); WHITE BLOOD COUNT 6.1 10^3/uL (4.0-10.0)
[2021-01-23 08:12] LABS: BLOOD UREA NITROGEN < 1 MG/DL (7-18); CALCIUM LEVEL 7.5 MG/DL (8.8-10.2); CARBON DIOXIDE LEVEL 19 MEQ/L (21-32); CHLORIDE LEVEL 113 MEQ/L (98-107); CREATININE FOR GFR 0.42 MG/DL (0.55-1.30); GLOMERULAR FILTRATION RATE > 60.0 (>39); GLUCOSE, FASTING 81 MG/DL (70-100); POTASSIUM SERUM 3.5 MEQ/L (3.5-5.1); SODIUM LEVEL 138 MEQ/L (136-145)
[2021-01-23] MEDS: amLODIPine 5 MG TAB PO SCH (09:00)
[2021-01-23] MEDS: LACTOBACILLUS ACIDOPHILUS CAP (BACID) PO SCH (09:25)
[2021-01-23] MEDS: KCL 20MEQ in NS 1000ML 1,000 ML IV SCH ×2 (09:25→19:52)
--- NOTE | 2021-01-23 11:38 | IPNPDOC ---
Text Note Date of Service The patient was seen on 01/23/21. NOTE SUBJECTIVE: -No acute events overnight OBJECTIVE: VITAL SIGNS: please see below General: NAD HEENT: PERRLA, EOMI, sclerae clear Neck: supple, normal ROM, no JVD Respiratory: lungs CTAB, no wheeze, no rales, no crackles CVS: RRR, normal S1, S2, no murmurs Abdo: Normoactive bowel sounds, soft, no masses, no hepatosplenomegaly, has mild pain of palpation in LUQ, no rebound tenderness Extremities: no edema, pulses 2+ MSK: no joint deformities, normal ROM Neuro: no focal neuro deficits, moving all 4 extremities, CN2-12 intact. Strength 5/5 in all 4 extremities. Psych: calm, cooperative, AAO x 3 LABORATORY DATA: Reviewed WBC 6.1 hgb 11.6 platelets 213 na 138 K 3.5 Cr 0.42 Pending mag IMAGING: CT abdo pelvis w IV and oral contrast (01/20/21): 1. Sigmoid colitis, with associated ileus or early obstruction. 2. Diverticulosis coli. 3. Hepatic steatosis. 4. Right basilar atelectasis. MICROBIOLOGY: Please see below. ASSESSMENT: 75 yo F with a PMHx of HLD, HTN, GERD, ovarian and uterine cancers, presented to ER with a 2 day hx of SOB, as well as abdominal pain with reduced PO intake and was diagnosed with covid-19 positive in the ER and now admitted for sigmoid colitis with a CT abdomen that showed sigmoid colitis now on empiric antiobiotics. PLAN: #C.difficle colitis: Sigmoid colitis seen on CT, and GI panel positive for C.difficile. -continue the PO vanc 125Q6H started overnight, day 2 -probiotic with meals -Tylenol PRN for fevers. -20meqKNS at 100 cc/hr. -regular diet Covid-19 infection: -Has GI symptoms likely 2/2 ongoing c.diff, on IVF and PO vanc -Otherwise breathing comfortably on room air -daily labs -droplet and contact isolation #Hx of HTN: -amlodipine. DVT ppx: SCD. TEDs. VS,Fishbone, I+O VS, Fishbone, I+O Laboratory Tests 01/22/21 11:02 01/23/21 06:49 Vital Signs Date Time Temp Pulse Resp B/P (MAP) Pulse Ox O2 Delivery O2 Flow Rate FiO2 01/23/21 04:00 98.5 74 20 130/60 (83) 96 Room Air I&O- Last 24 Hours up to 6 AM 01/23/21 06:00 Intake Total 2278 ml Balance 2278 ml ALFONSO CEDILLO MD Jan 23, 2021 10:01
[2021-01-23 14:00] VITALS: BP 126/79
[2021-01-23] MEDS: NICOTINE 14 MG/24 HR TRANSDERMAL TD SCH (18:06)
[2021-01-23 20:03] VITALS: BP 132/64
[2021-01-23] MEDS: ACETAMINOPHEN TAB 650MG DOSE (2X325MG) PO PRN (22:24)
[2021-01-24] MEDS: VANCOMYCIN ORAL SOL 250MG/5ML ORAL SYRINGE PO SCH ×3 (00:24→12:58)
[2021-01-24 04:00] VITALS: BP 137/65
[2021-01-24] MEDS: KCL 20MEQ in NS 1000ML 1,000 ML IV SCH (06:21)
[2021-01-24 07:35] LABS: HEMATOCRIT 32.7 % (36.0-47.0); HEMOGLOBIN 11.4 g/dl (12.0-15.5); MEAN CORPUSCULAR HEMOGLOBIN 36.2 pg (27.0-33.0); MEAN CORPUSCULAR HGB CONC 34.9 g/dl (32.0-36.5); MEAN CORPUSCULAR VOLUME 103.8 fl (80.0-96.0); PLATELET COUNT, AUTOMATED 210 10^3/uL (150-450); RED BLOOD COUNT 3.15 10^6/uL (4.00-5.40); WHITE BLOOD COUNT 5.4 10^3/uL (4.0-10.0)
[2021-01-24 07:57] LABS: BLOOD UREA NITROGEN < 1 MG/DL (7-18); CALCIUM LEVEL 7.5 MG/DL (8.8-10.2); CARBON DIOXIDE LEVEL 22 MEQ/L (21-32); CHLORIDE LEVEL 112 MEQ/L (98-107); CREATININE FOR GFR 0.49 MG/DL (0.55-1.30); GLOMERULAR FILTRATION RATE > 60.0 (>39); GLUCOSE, FASTING 95 MG/DL (70-100); POTASSIUM SERUM 3.4 MEQ/L (3.5-5.1); SODIUM LEVEL 140 MEQ/L (136-145)
[2021-01-24] MEDS: amLODIPine 5 MG TAB PO SCH (08:07)
[2021-01-24] MEDS: ACETAMINOPHEN TAB 650MG DOSE (2X325MG) PO PRN (08:07)
[2021-01-24] MEDS: LACTOBACILLUS ACIDOPHILUS CAP (BACID) PO SCH (08:07)
[2021-01-24] MEDS: NICOTINE 14 MG/24 HR TRANSDERMAL TD SCH (08:08)
[2021-01-24] MEDS ORDERED: FIRV50SO PO (09:49)
[2021-01-24] MEDS ORDERED: RISATAB3 PO (09:49)
[2021-01-24] MEDS ORDERED: AMLO1TAB24 PO (09:49)
--- NOTE | 2021-01-24 10:17 | DS.PDOC ---
Discharge Summary General Date of Admission Jan 21, 2021 at 00:50 Date of Discharge 01/24/2021 Attending Physician: ALFONSO CEDILLO MD Discharge Summary PROCEDURES PERFORMED DURING STAY: None ADMITTING DIAGNOSES: Covid-19 infection C.diff colitis DISCHARGE DIAGNOSES: Covid-19 infection C.diff colitis Hyperlipidemia. Hypertension. GERD. COMPLICATIONS/CHIEF COMPLAINT: Colitis;Covid-19. HISTORY OF PRESENT ILLNESS: 75 yo W with a PMHx of HLD, HTN, GERD, ovarian and uterine cancers, presented to ER with a 2 day hx of SOB, as well as abdominal pain with reduced PO intake. HOSPITAL COURSE: She was found to be covid-19 positive in the ER. CT abdomen showed sigmoid co litis with possible ileus. Dr. Hare was called from ER, and recommended a course of antibiotics and she was initially started on empiric cipro/flagyl but was eventually found to be C.diff positive on stool PCR and switched to PO vanc. Abdominal pain improved with resolution of diarrhea and stool incontinence and is now having formed stool. She fortunately has not had much symptoms from a covid-19 perspective and is breathing comfortably on room air, is afebrile and has no URI symptoms. She is now being discharged home to complete 8 more days of PO vancomycin. Of note, she has a history of HTN and had some sustained untreated hypertension for which we started her on amlodipine 5mg daily. DISCHARGE MEDICATIONS: Please see below. ALLERGIES: Please see below. PHYSICAL EXAMINATION ON DISCHARGE: VITAL SIGNS: Please see below. VITAL SIGNS: please see below General: NAD HEENT: PERRLA, EOMI, sclerae clear Neck: supple, normal ROM, no JVD Respiratory: lungs CTAB, no wheeze, no rales, no crackles CVS: RRR, normal S1, S2, no murmurs Abdo: Normoactive bowel sounds, soft, no masses, no hepatosplenomegaly, has mild pain of palpation in LUQ, no rebound tenderness Extremities: no edema, pulses 2+ MSK: no joint deformities, normal ROM Neuro: no focal neuro deficits, moving all 4 extremities, CN2-12 intact. Strength 5/5 in all 4 extremities. Psych: calm, cooperative, AAO x 3 LABORATORY DATA: Please see below IMAGING: CT abdo pelvis w IV and oral contrast (01/20/21): 1. Sigmoid colitis, with associated ileus or early obstruction. 2. Diverticulosis coli. 3. Hepatic steatosis. 4. Right basilar atelectasis. PROGNOSIS: Good ACTIVITY: As tolerated DIET: 2g sodium DISCHARGE PLAN: Home w/ 8d of PO vanc for C.diff colitis. 2tabs daily of probiotic. PCP follow up within 7d DISPOSITION: Home DISCHARGE INSTRUCTIONS: Home w/ 8d of PO vanc for C.diff colitis. 2tabs daily of probiotic. PCP follow up within 7d ITEMS TO FOLLOWUP ON ON OUTPATIENT: C.diff colitis covid-19 infection DISCHARGE CONDITION: Stable TIME SPENT ON DISCHARGE: 40 minutes. Vital Signs/I&Os Vital Signs Date Time Temp Pulse Resp B/P (MAP) Pulse Ox O2 Delivery O2 Flow Rate FiO2 01/24/21 04:00 97.8 73 20 137/65 (89) 94 Room Air I&O- Last 24 Hours up to 6 AM 01/24/21 06:00 Intake Total 1852 ml Balance 1852 ml Laboratory Data Labs 24H Laboratory Tests 2 01/24/21 07:13: Nucleated Red Blood Cells % (auto) 0.0, Anion Gap 6L, Glomerular Filtration Rate > 60.0, Calcium Level 7.5L CBC/BMP Laboratory Tests 01/24/21 07:13 Microbiology Microbiology 01/21/21 Gastrointestinal Tract Panel (PCR) - Final, Complete Clostridium Difficile A/B Discharge Medications Scheduled Amlodipine Besylate (Amlodipine Besylate) 5 Mg Tablet, 5 MG PO DAILY L.acidoph/L.bulg/B.bif/S.therm (Niurka-Bid Caplet) 1 Each Tablet, 2 EA PO DAILY Vancomycin HCl (Firvanq) 50 Mg/1 Ml Soln.recon, 125 MG PO Q6H Allergies Coded Allergies: bee pollen (Verified Allergy, Severe, stops breathing, 12/27/20) codeine (Verified Allergy, Severe, stopped breathing , 12/27/20) morphine (Verified Allergy, Severe, stopped breathing, 12/27/20) oxycodone (Verified Allergy, Severe, stopped breathing, 12/27/20) atorvastatin (Verified Allergy, Intermediate, hives, 12/27/20) alendronate sodium (Verified Allergy, Unknown, gives her vomiting and diarrhra, 12/27/20) ALFONSO CEDILLO MD Jan 24, 2021 10:17
== END 2021-01-24 14:30 | disposition home health service (06) | DRG 371 ==
LOC: M ED 17:29 → EDBD 17:29 → M ED INP 01-21 00:50 → ENRESERV 01-21 14:59 → M 4MAIN 01-21 16:15
PROVIDERS: ADMIT Family Medicine; ATTEND Internal Medicine
DX: A04.72 Enterocolitis due to Clostridium difficile, not specified as recurrent (principal); U07.1 COVID-19; K56.7 Ileus, unspecified; E78.5 Hyperlipidemia, unspecified; K21.9 Gastro-esophageal reflux disease without esophagitis; Z85.43 Personal history of malignant neoplasm of ovary; Z85.42 Personal history of malignant neoplasm of other parts of uterus; Z90.710 Acquired absence of both cervix and uterus; Z90.49 Acquired absence of other specified parts of digestive tract; Z86.010 Personal history of colon polyps; F17.200 Nicotine dependence, unspecified, uncomplicated; D53.9 Nutritional anemia, unspecified; I10 Essential (primary) hypertension; Z20.822 Contact with and (suspected) exposure to COVID-19; Z79.899 Other long term (current) drug therapy; Z79.1 Long term (current) use of non-steroidal anti-inflammatories (NSAID); Z88.5 Allergy status to narcotic agent; Z88.8 Allergy status to other drugs, medicaments and biological substances; Z91.030 Bee allergy status

== ENCOUNTER 2021-02-21 14:35 | Inpatient (IN) | payer OTHER ==
[~2021-02-21] VITALS: Ht 162.6 cm; Wt 59.3 kg
[~2021-02-21 14:35] MED LIST changes: +FIRV50SO PO; +RISATAB3 PO
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
--- OUTSIDE RECORDS SUMMARY | 2021-02-21 14:39 | CCD ---
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 Results This patient has no known results.
--- OUTSIDE RECORDS SUMMARY | 2021-02-21 14:39 | CCD ---
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
--- OUTSIDE RECORDS SUMMARY | 2021-02-21 14:40 | CCD ---
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
--- OUTSIDE RECORDS SUMMARY | 2021-02-21 14:40 | CCD ---
Author Author [facility] Organization [facility] Address Unknown Phone Unavailable Care Team Providers Care Instrument/Control Technician Name Role Phone CLEOPATRA REED MD Unavailable Unavailable REINSHARON, CLEOPATRA FARR Unavailable Unavailable [...] Unavailable REINSHARON, CLEOPATRA FARR Unavailable Unavailable REINSHARON, CLOEPATRA FARR Unavailable Unavailable REINDL, CLEOPATRA FARR Unavailable [...] Unavailable Unavailable REINDL, CLEOPATRA FARR Unavailable Unavailable DEREK, CLEOPATRA FARR Unavailable Unavailable DEREK, CLEOPATRA FARR Unavailable Unavailable REINSHARON, CLEOPATRA FARR Unavailable Unavailable REINSHARON, CLEOPATRA FARR Unavailable Unavailable REINSHARON, CLEOPATRA FARR Unavailable Unavailable DEREK, CLEOPATRA FARR Unavailable Unavailable DEREK, CLEOPATRA FARR Unavailable Unavailable DEREK, CLEOPATRA FARR Unavailable Unavailable REINSHARON, CLEOPATRA FARR Unavailable Unavailable REINSHARON, CLEOPATRA FARR Unavailable Unavailable DEREK, CLEOPATRA FARR Unavailable Unavailable DEREK, CLEOPATRA FARR Unavailable Unavailable Etienne Owen MD Unavailable Unavailable Etienne Oewn MD Unavailable Unavailable Skipton, E Robyn MD Unavailable Unavailable Skipton, E Robyn MD Unavailable Unavailable Skipton, E Robyn MD Unavailable Unavailable Skipton, E Robyn MD Unavailable Unavailable Skipton, E Robyn MD Unavailable Unavailable Skipton, E Robyn MD Unavailable Unavailable Skipton, E Robyn MD Unavailable Unavailable Skipton, E Robyn MD Unavailable Unavailable Skipton, E Robyn MD Unavailable Unavailable Skipton, E Robyn MD Unavailable Unavailable Skipton, E Robyn MD Unavailable Unavailable Skipton, E Robyn MD Unavailable Unavailable Skipton, E Robyn MD Unavailable Unavailable Skipton, E Robyn MD Unavailable Unavailable Skipton, E Robyn MD Unavailable Unavailable Skipton, E Robyn MD Unavailable Unavailable Skipton, E Robyn MD Unavailable Unavailable Skipton, E Robyn MD Unavailable Unavailable Skipton, E Robyn MD Unavailable Unavailable Skipton, E Robyn MD Unavailable Unavailable Skipton, E Robyn MD Unavailable Unavailable Skipton, E Robyn MD Unavailable Unavailable Skipton, E Robyn MD Unavailable Unavailable Skipton, E Robyn MD Unavailable Unavailable Skipton, E Robyn MD Unavailable Unavailable Skipton, E Robyn MD Unavailable Unavailable Skipton, E Robyn MD Unavailable Unavailable Skipton, E Robyn MD Unavailable Unavailable Skipton, E Robyn MD Unavailable Unavailable Skipton, E Robyn MD Unavailable Unavailable Skipton, E Robyn MD Unavailable Unavailable Skipton, E Robyn MD Unavailable Unavailable Skipton, E Robyn MD Unavailable Unavailable Skipton, E Robyn MD Unavailable Unavailable Skipton, E Robyn MD Unavailable Unavailable Skipton, E Robyn MD Unavailable Unavailable Skipton, E Robyn MD Unavailable Unavailable Skipton, E Robyn MD Unavailable Unavailable Skipton, E Robyn MD Unavailable Unavailable Skipton, E Robyn MD Unavailable Unavailable Skipton, E Robyn MD Unavailable Unavailable Skipton, E Robyn MD Unavailable Unavailable Skipton, E Robyn MD Unavailable Unavailable Skipton, E Robyn MD Unavailable Unavailable Skipton, E Robyn MD Unavailable Unavailable Skipton, E Robyn MD Unavailable Unavailable Skipton, E Robyn MD Unavailable Unavailable Skipton, E Robyn MD Unavailable Unavailable Skipton, E Robyn MD Unavailable Unavailable Skipton, E Robyn MD Unavailable Unavailable Skipton, E Robyn MD Unavailable Unavailable Skipton, E Robyn MD Unavailable Unavailable Skipton, E Robyn MD Unavailable Unavailable Skipton, E Robyn MD Unavailable Unavailable Skipton, E Robyn MD Unavailable Unavailable Skipton, E Robyn MD Unavailable Unavailable Skipton, E Robyn MD Unavailable Unavailable Etienne Owen MD Unavailable Unavailable Etienne Owen MD Unavailable Unavailable Allyson Kevin MD Unavailable [...] Unavailable Unavailable Allyson Kevin MD Unavailable Unavailable Slezka, Vojtech MD Unavailable Unavailable Slezka, Vojtech MD Unavailable Unavailable Slezka, Vojtech MD Unavailable Unavailable Slezka, Vojtech MD Unavailable Unavailable Slezka, Vojtech MD Unavailable Unavailable Slezka, Vojtech MD Unavailable Unavailable Slezka, Vojtech MD Unavailable Unavailable Slezka, Vojtech MD Unavailable Unavailable Slezka, Vojtech MD Unavailable Unavailable Slezka, Vojtech MD Unavailable Unavailable Slezka, Vojtech MD Unavailable Unavailable Slezka, Vojtech MD Unavailable Unavailable Slezka, Vojtech MD Unavailable Unavailable Re-disclosure Warning The records [...] is protected by Article 27-F of the [facility] Public Health law. If you continue you may have access to information: Regarding HIV / AIDS; Provided by facilities licensed or operated by the [facility] Office of Mental Health; or Provided by the [facility] Office for People With Developmental Disabilities. If such information is present, then the following [facility] mandated warning applies: This information has [...] NOT sufficient authorization for further disc losure. Allergies and Adverse Reactions Type Description Substance Reaction Status Data Source(s ) Unknown bee pollen Bee pollen Reaction Unknown NDOC ([facility]) Unknown atorvastatin atorvastatin Reaction Unknown NDO C ([facility]) Unknown alendronate sodium alendronate sodium Reaction Unknown NDOC ([facility]) Unknown oxycodone Oxycodone Reaction Unknown [facility] Unknown codeine Codeine Reaction Unknown NDOC ([facility]) Unknown morphine Morphine Reaction Unknown NDOC ([facility]) Encounters Encounter Providers Location Date Indications Data Source(s ) [place] [address] [facility] [address] 02/11/2021 12:00:00 AM EST eCW1 ([facility]) Unknown [address] [facility] [place] [address] 01/28/2021 12:00:00 AM EST eCW1 ([facility]) O Attender: Robyn Owen MD 01/25/2021 12:00:00 A M EST NDOC ([facility]) Patient admitted. Unknown [address] [facility] [address] 01/25/2021 12:00:00 AM EST eCW1 ([facility]) Unknown [address] [facility] [place] [address] 01/20/2021 12:00:00 AM EST eCW1 ([facility]) [place] [address] [facility] [place] [address] 01/12/2021 12:00:00 AM EDT eCW1 ([facility]) [place] [address] [facility] [place] [address] 12/30/2020 12:00:00 AM EDT eCW1 ([facility]) Outpatient [address] [facility] [place] [address] 12/27/2020 12:00:00 AM EDT eCW1 ([facility]) Unknown [address] [facility] [place] [address] 12/09/2020 12:00:00 AM EDT eCW1 ([facility]) Outpatient Attender: CLEOPATRA Goldberg/Arnoldo/Igor/Rein dl 09/29/2020 03:00:00 PM EDT MEDENT ([facility]) [place] [address] [facility] [address] 08/27/2020 12:00:00 AM EDT [facility]CW1 [facility] [place] [address] [facility] [address] 08/26/2020 12:00:00 AM EDT eCW1 ([facility]) [place] [address] [facility] [address] 07/27/2020 12:00:00 AM EDT eCW1 ([facility]) [place] [address] [facility] [address] 07/22/2020 12:00:00 AM EDT eCW1 ([facility]) [place] [address] [facility] [address] 07/20/2020 12:00:00 AM EDT eCW1 ([facility]) [place] [address] [facility] [address] 07/19/2020 12:00:00 AM EDT eCW1 ([facility]) [place] [address] [facility] [address] 07/08/2020 12:00:00 AM EDT eCW1 ([facility]) [place] [address] [facility] [address] 06/24/2020 12:00:00 AM EDT eCW1 ([facility]) [place] [address] [facility] [address] 06/07/2020 12:00:00 AM EDT eCW1 ([facility]) [place] [address] [facility] [address] 05/20/2020 12:00:00 AM EST eCW1 ([facility]) [place] [address] [facility] [address] 04/29/2020 12:00:00 AM EST eCW1 ([facility]) [place] [address] [facility] [address] 04/21/2020 12:00:00 AM EST eCW1 ([facility]) [place] [address] [facility] [address] 04/21/2020 12:00:00 AM EST eCW1 ([facility]) [place] [address] [facility] [address] 04/13/2020 12:00:00 AM EST eCW1 ([facility]) Outpatient [address] [facility] [address] 04/08/2020 12:00:00 AM EST eCW1 ([facility]) Unknown [address] [facility] [address] 03/31/2020 12:00:00 AM EST eCW1 ([facility]) Outpatient RUSLANP.LUCILLE-JOSE ALFREDO 03/18/2020 10:16:27 AM EST [facility] Outpatient Referrer: Allyson LION-SJJenni.MAICOL 06/2020 10:29:02 AM EST [facility] Unknown [address] [facility] [address] 03/10/2020 12:00:00 AM EST eCW1 ([facility]) Outpatient [address] [facility] [address] 02/20/2020 12:00:00 AM EST eCW1 ([facility]) Outpatient Referrer: Allyson DOMINGUEZLUCILLE 03/2019 12:00:00 AM EST [facility] Outpatient [address] [facility] [address] 02/02/2020 12:00:00 AM EST eCW1 ([facility]) Unknown [address] [facility] [address] 01/26/2020 12:00:00 AM EST eCW1 ([facility]) [place] [address] [facility] [address] 01/25/2020 12:00:00 AM EST eCW1 ([facility]) [place] [address] [facility] [address] 01/08/2020 12:00:00 AM EDT eCW1 ([facility]) [place] [address] [facility] [address] 01/07/2020 12:00:00 AM EDT eCW1 ([facility]) Immunizations Vaccine Date Status Description Data Source(s) COVID-19 dose #2 given elsewhere Unspecified 06/15/2020 09:3 3:00 AM EDT completed eCW1 ([facility]) COVID-19 dose #2 given elsewhere Unspecified 06/15/2020 09:3 3:00 AM EDT completed eCW1 ([facility]) COVID-19 dose #2 given elsewhere Unspecified 06/15/2020 09:3 3:00 AM EDT completed eCW1 ([facility]) COVID-19 dose #2 given elsewhere Unspecified 06/15/2020 09:3 3:00 AM EDT completed eCW1 ([facility]) COVID-19 dose #2 given elsewhere Unspecified 06/15/2020 09:3 3:00 AM EDT completed eCW1 ([facility]) COVID-19 dose #2 given elsewhere Unspecified 06/15/2020 09:3 3:00 AM EDT completed eCW1 ([facility]) COVID-19 dose #2 given elsewhere Unspecified 06/15/2020 09:3 3:00 AM EDT completed eCW1 ([facility]) COVID-19 dose #2 given elsewhere Unspecified 06/15/2020 09:3 3:00 AM EDT completed eCW1 ([facility]) COVID-19 dose #2 given elsewhere Unspecified 06/15/2020 09:3 3:00 AM EDT completed eCW1 ([facility]) COVID-19 dose #2 given elsewhere Unspecified 06/15/2020 09:3 3:00 AM EDT completed eCW1 ([facility]) COVID-19 dose #2 given elsewhere Unspecified 06/15/2020 09:3 3:00 AM EDT completed eCW1 ([facility]) COVID-19 dose #2 given elsewhere Unspecified 06/15/2020 09:3 3:00 AM EDT completed eCW1 ([facility]) COVID-19 dose #2 given elsewhere Unspecified 06/15/2020 09:3 3:00 AM EDT completed eCW1 ([facility]) COVID-19 dose #2 given elsewhere Unspecified 06/15/2020 09:3 3:00 AM EDT completed eCW1 ([facility]) COVID-19 dose #2 given elsewhere Unspecified 06/15/2020 09:3 3:00 AM EDT completed eCW1 ([facility]) COVID-19 VACCINE Moderna 06/12/2020 12:00:00 AM EDT completed [employer] Vaccine Series Complete: YESThis Data wa s Submitted to [facility] Via [employer]. COVID-19 dose #1 given elsewhere Unspecified 05/24/2020 09:3 3:00 AM EDT completed eCW1 ([facility]) COVID-19 dose #1 given elsewhere Unspecified 05/24/2020 09:3 3:00 AM EDT completed eCW1 ([facility]) COVID-19 dose #1 given elsewhere Unspecified 05/24/2020 09:3 3:00 AM EDT completed eCW1 ([facility]) COVID-19 dose #1 given elsewhere Unspecified 05/24/2020 09:3 3:00 AM EDT completed eCW1 ([facility]) COVID-19 dose #1 given elsewhere Unspecified 05/24/2020 09:3 3:00 AM EDT completed eCW1 ([facility]) COVID-19 dose #1 given elsewhere Unspecified 05/24/2020 09:3 3:00 AM EDT completed eCW1 ([facility]) COVID-19 dose #1 given elsewhere Unspecified 05/24/2020 09:3 3:00 AM EDT completed eCW1 ([facility]) COVID-19 dose #1 given elsewhere Unspecified 05/24/2020 09:3 3:00 AM EDT completed eCW1 ([facility]) COVID-19 dose #1 given elsewhere Unspecified 05/24/2020 09:3 3:00 AM EDT completed eCW1 ([facility]) COVID-19 dose #1 given elsewhere Unspecified 05/24/2020 09:3 3:00 AM EDT completed eCW1 ([facility]) COVID-19 dose #1 given elsewhere Unspecified 05/24/2020 09:3 3:00 AM EDT completed eCW1 ([facility]) COVID-19 dose #1 given elsewhere Unspecified 05/24/2020 09:3 3:00 AM EDT completed eCW1 ([facility]) COVID-19 dose #1 given elsewhere Unspecified 05/24/2020 09:3 3:00 AM EDT completed eCW1 ([facility]) COVID-19 dose #1 given elsewhere Unspecified 05/24/2020 09:3 3:00 AM EDT completed eCW1 ([facility]) COVID-19 dose #1 given elsewhere Unspecified 05/24/2020 09:3 3:00 AM EDT completed eCW1 ([facility]) COVID-19 VACCINE Moderna 05/15/2020 12:00:00 AM EST completed [employer] Vaccine Series Complete: NOThis Data was Submitted to [facility] Via [employer]. influenza, recombinant, quadrIvalent,injectable, prese rvative free 01/07/2020 03:18:00 PM EDT completed eCW1 ([facility]) influenza, recombinant, quadrIvalent,injectable, prese rvative free 01/07/2020 03:18:00 PM EDT completed eCW1 ([facility]) influenza, recombinant, quadrIvalent,injectable, prese rvative free 01/07/2020 03:18:00 PM EDT completed eCW1 ([facility]) influenza, recombinant, quadrIvalent,injectable, prese rvative free 01/07/2020 03:18:00 PM EDT completed eCW1 ([facility]) influenza, recombinant, quadrIvalent,injectable, prese rvative free 01/07/2020 03:18:00 PM EDT completed eCW1 ([facility]) influenza, recombinant, quadrIvalent,injectable, prese rvative free 01/07/2020 03:18:00 PM EDT completed eCW1 ([facility]) influenza, recombinant, quadrIvalent,injectable, prese rvative free 01/07/2020 03:18:00 PM EDT completed eCW1 ([facility]) influenza, recombinant, quadrIvalent,injectable, prese rvative free 01/07/2020 03:18:00 PM EDT completed eCW1 ([facility]) influenza, recombinant, quadrIvalent,injectable, prese rvative free 01/07/2020 03:18:00 PM EDT completed eCW1 ([facility]) influenza, recombinant, quadrIvalent,injectable, prese rvative free 01/07/2020 03:18:00 PM EDT completed eCW1 ([facility]) influenza, recombinant, quadrIvalent,injectable, prese rvative free 01/07/2020 03:18:00 PM EDT completed eCW1 ([facility]) influenza, recombinant, quadrIvalent,injectable, prese rvative free 01/07/2020 03:18:00 PM EDT completed eCW1 ([facility]) influenza, recombinant, quadrIvalent,injectable, prese rvative free 01/07/2020 03:18:00 PM EDT completed eCW1 ([facility]) influenza, recombinant, quadrIvalent,injectable, prese rvative free 01/07/2020 03:18:00 PM EDT completed eCW1 ([facility]) influenza, recombinant, quadrIvalent,injectable, prese rvative free 01/07/2020 03:18:00 PM EDT completed eCW1 ([facility]) influenza, recombinant, quadrIvalent,injectable, prese rvative free 01/07/2020 03:18:00 PM EDT completed eCW1 ([facility]) influenza, recombinant, quadrIvalent,injectable, prese rvative free 01/07/2020 03:18:00 PM EDT completed eCW1 ([facility]) influenza, recombinant, quadrIvalent,injectable, prese rvative free 01/07/2020 03:18:00 PM EDT completed eCW1 ([facility]) influenza, recombinant, quadrIvalent,injectable, prese rvative free 01/07/2020 03:18:00 PM EDT completed eCW1 ([facility]) influenza, recombinant, quadrIvalent,injectable, prese rvative free 01/07/2020 03:18:00 PM EDT completed eCW1 ([facility]) influenza, recombinant, quadrIvalent,injectable, prese rvative free 01/07/2020 03:18:00 PM EDT completed eCW1 ([facility]) influenza, recombinant, quadrIvalent,injectable, prese rvative free 01/07/2020 03:18:00 PM EDT completed eCW1 ([facility]) influenza, recombinant, quadrIvalent,injectable, prese rvative free 01/07/2020 03:18:00 PM EDT completed eCW1 ([facility]) influenza, recombinant, quadrIvalent,injectable, prese rvative free 01/07/2020 03:18:00 PM EDT completed eCW1 ([facility]) influenza, recombinant, quadrIvalent,injectable, prese rvative free 01/07/2020 03:18:00 PM EDT completed eCW1 ([facility]) influenza, recombinant, quadrIvalent,injectable, prese rvative free 01/07/2020 03:18:00 PM EDT completed eCW1 ([facility]) influenza, recombinant, quadrIvalent,injectable, prese rvative free 01/07/2020 03:18:00 PM EDT completed eCW1 ([facility]) influenza, recombinant, quadrIvalent,injectable, prese rvative free 01/07/2020 03:18:00 PM EDT completed eCW1 ([facility]) influenza, recombinant, quadrIvalent,injectable, prese rvative free 01/07/2020 03:18:00 PM EDT completed eCW1 ([facility]) influenza, recombinant, quadrIvalent,injectable, prese rvative free 01/07/2020 03:18:00 PM EDT completed eCW1 ([facility]) influenza, recombinant, quadrIvalent,injectable, prese rvative free 01/07/2020 03:18:00 PM EDT completed eCW1 ([facility]) Medications Medication Brand Name Start Date Product Form Dose Route Admi nistrative Instructions Pharmacy Instructions Status Indications Reaction Description Data Source(s) 125 mg 01/28/2021 12:00:00 AM EST capsule 32 TAKE 1 CAPSULE BY MOUTH ONCE EVERY 6 HOURS UNTIL GONE TAKE 1 CAPSULE BY MOUTH ONCE EVERY 6 HOURS UNTIL GONE SOLD: 01/28/2021 [facility] Naproxen 500 MG Oral Tablet Naproxen 500 MG 12/29/2020 12:00:00 AM EDT active Naproxen 500 MG eCW1 ([facility]) Naproxen 500 MG Oral Tablet Naproxen 500 MG 12/29/2020 12:00:00 AM EDT active Naproxen 500 MG eCW1 ([facility]) Naproxen 500 MG Oral Tablet Naproxen 500 MG 12/29/2020 12:00:00 AM EDT active Naproxen 500 MG eCW1 ([facility]) Naproxen 500 MG Oral Tablet Naproxen 500 MG 12/29/2020 12:00:00 AM EDT active eCW1 ([facility]) Naproxen 500 MG Oral Tablet Naproxen 500 MG 12/29/2020 12:00:00 AM EDT active Naproxen 500 MG eCW1 ([facility]) Naproxen 500 MG Oral Tablet Naproxen 500 MG 12/29/2020 12:00:00 AM EDT active Naproxen 500 MG eCW1 ([facility]) Magnesium Hydroxide 80 MG/ML Oral Suspension Milk Of Magnesi a 09/29/2020 12:00:00 AM EDT ORAL active Marifer DENNIS ([facility], ) POLYETHYLENE GLYCOL 3350 142 MG/ML Oral Solution [Miralax] M iralax 09/29/2020 12:00:00 AM EDT active M EDPIERO ([facility], ) Vitamin D3 125 MCG (5000 UT) Vitamin D3 125 MCG (5000 UT) 12:00:00 AM EDT 1.0 {capsule} active Vitamin D3 125 MCG (5000 UT) eCW1 ([facility]) Vitamin D3 125 MCG (5000 UT) Vitamin D3 125 MCG (5000 UT) 12:00:00 AM EDT 1.0 {capsule} active Vitamin D3 125 MCG (5000 UT) eCW1 ([facility]) Vitamin D3 125 MCG (5000 UT) Vitamin D3 125 MCG (5000 UT) 12:00:00 AM EDT 1.0 {capsule} active Vitamin D3 125 MCG (5000 UT) eCW1 ([facility]) Vitamin D3 125 MCG (5000 UT) Vitamin D3 125 MCG (5000 UT) 12:00:00 AM EDT 1.0 {capsule} active Vitamin D3 125 MCG (5000 UT) eCW1 ([facility]) Vitamin D3 125 MCG (5000 UT) Vitamin D3 125 MCG (5000 UT) 12:00:00 AM EDT 1.0 {capsule} active Vitamin D3 125 MCG (5000 UT) eCW1 ([facility]) Vitamin D3 125 MCG (5000 UT) Vitamin D3 125 MCG (5000 UT) 12:00:00 AM EDT 1.0 {capsule} active Vitamin D3 125 MCG (5000 UT) eCW1 ([facility]) Naproxen 375 MG Oral Tablet Naproxen 375 MG 07/20/2020 12:00:00 AM EDT active Naproxen 375 MG eCW1 ([facility]) Naproxen 375 MG Oral Tablet Naproxen 375 MG 07/20/2020 12:00:00 AM EDT active Naproxen 375 MG eCW1 ([facility]) Naproxen 375 MG Oral Tablet Naproxen 375 MG 07/20/2020 12:00:00 AM EDT active Naproxen 375 MG eCW1 ([facility]) Alendronic acid 70 MG Oral Tablet Alendronate Sodium 7 0 MG Alendronate Sodium 70 MG 04/29/2020 12:00:00 AM EST active Alendronate Sodium 70 MG eCW1 ([facility]) Alendronic acid 70 MG Oral Tablet Alendronate Sodium 7 0 MG Alendronate Sodium 70 MG 04/29/2020 12:00:00 AM EST active Alendronate Sodium 70 MG eCW1 ([facility]) Alendronic acid 70 MG Oral Tablet Alendronate Sodium 7 0 MG Alendronate Sodium 70 MG 04/29/2020 12:00:00 AM EST active Alendronate Sodium 70 MG eCW1 ([facility]) Alendronic acid 70 MG Oral Tablet Alendronate Sodium 7 0 MG Alendronate Sodium 70 MG 04/29/2020 12:00:00 AM EST active Alendronate Sodium 70 MG eCW1 ([facility]) Amlodipine 2.5 MG Oral Tablet AmLODIPine Besylate 2.5 MG AmLODIPine Besylate 2.5 MG 04/08/2020 12:00:00 AM EST 1.0 {tablet} activ e AmLODIPine Besylate 2.5 MG eCW1 ([facility]) Amlodipine 2.5 MG Oral Tablet AmLODIPine Besylate 2.5 MG AmLODIPine Besylate 2.5 MG 04/08/2020 12:00:00 AM EST 1.0 {tablet} activ e AmLODIPine Besylate 2.5 MG eCW1 ([facility]) Amlodipine 2.5 MG Oral Tablet AmLODIPine Besylate 2.5 MG AmLODIPine Besylate 2.5 MG 04/08/2020 12:00:00 AM EST 1.0 {tablet} activ e AmLODIPine Besylate 2.5 MG eCW1 ([facility]) Amlodipine 2.5 MG Oral Tablet AmLODIPine Besylate 2.5 MG AmLODIPine Besylate 2.5 MG 04/08/2020 12:00:00 AM EST 1.0 {tablet} activ e AmLODIPine Besylate 2.5 MG eCW1 ([facility]) Amlodipine 2.5 MG Oral Tablet amLODIPine Besylate 2.5 MG amLODIPine Besylate 2.5 MG 04/08/2020 12:00:00 AM EST 1.0 {tablet} activ e amLODIPine Besylate 2.5 MG eCW1 ([facility]) Amlodipine 2.5 MG Oral Tablet AmLODIPine Besylate 2.5 MG AmLODIPine Besylate 2.5 MG 04/08/2020 12:00:00 AM EST 1.0 {tablet} activ e AmLODIPine Besylate 2.5 MG eCW1 ([facility]) Amlodipine 2.5 MG Oral Tablet AmLODIPine Besylate 2.5 MG AmLODIPine Besylate 2.5 MG 04/08/2020 12:00:00 AM EST 1.0 {tablet} activ e AmLODIPine Besylate 2.5 MG eCW1 ([facility]) Amlodipine 2.5 MG Oral Tablet AmLODIPine Besylate 2.5 MG AmLODIPine Besylate 2.5 MG 04/08/2020 12:00:00 AM EST 1.0 {tablet} activ e AmLODIPine Besylate 2.5 MG eCW1 ([facility]) Amlodipine 2.5 MG Oral Tablet AmLODIPine Besylate 2.5 MG AmLODIPine Besylate 2.5 MG 04/08/2020 12:00:00 AM EST 1.0 {tablet} activ e AmLODIPine Besylate 2.5 MG eCW1 ([facility]) Amlodipine 2.5 MG Oral Tablet AmLODIPine Besylate 2.5 MG AmLODIPine Besylate 2.5 MG 04/08/2020 12:00:00 AM EST 1.0 {tablet} activ e AmLODIPine Besylate 2.5 MG eCW1 ([facility]) Amlodipine 2.5 MG Oral Tablet AmLODIPine Besylate 2.5 MG AmLODIPine Besylate 2.5 MG 04/08/2020 12:00:00 AM EST 1.0 {tablet} activ e AmLODIPine Besylate 2.5 MG eCW1 ([facility]) Amlodipine 2.5 MG Oral Tablet AmLODIPine Besylate 2.5 MG AmLODIPine Besylate 2.5 MG 04/08/2020 12:00:00 AM EST 1.0 {tablet} activ e AmLODIPine Besylate 2.5 MG eCW1 ([facility]) Amlodipine 2.5 MG Oral Tablet AmLODIPine Besylate 2.5 MG AmLODIPine Besylate 2.5 MG 04/08/2020 12:00:00 AM EST 1.0 {tablet} activ e AmLODIPine Besylate 2.5 MG eCW1 ([facility]) Amlodipine 2.5 MG Oral Tablet amLODIPine Besylate 2.5 MG amLODIPine Besylate 2.5 MG 04/08/2020 12:00:00 AM EST 1.0 {tablet} activ e amLODIPine Besylate 2.5 MG eCW1 ([facility]) Amlodipine 2.5 MG Oral Tablet AmLODIPine Besylate 2.5 MG AmLODIPine Besylate 2.5 MG 04/08/2020 12:00:00 AM EST 1.0 {tablet} activ e AmLODIPine Besylate 2.5 MG eCW1 ([facility]) Amlodipine 5 MG Oral Tablet AmLODIPine Besylate 5 MG AmLODIP ine Besylate 5 MG 01/25/2020 12:00:00 AM EST 1.0 {tablet} active AmLODIPine Besylate 5 MG eCW1 ([facility]) Amlodipine 5 MG Oral Tablet AmLODIPine Besylate 5 MG AmLODIP ine Besylate 5 MG 01/25/2020 12:00:00 AM EST 1.0 {tablet} active AmLODIPine Besylate 5 MG eCW1 ([facility]) Amlodipine 5 MG Oral Tablet AmLODIPine Besylate 5 MG AmLODIP ine Besylate 5 MG 01/25/2020 12:00:00 AM EST 1.0 {tablet} active AmLODIPine Besylate 5 MG eCW1 ([facility]) Amlodipine 5 MG Oral Tablet AmLODIPine Besylate 5 MG AmLODIP ine Besylate 5 MG 01/25/2020 12:00:00 AM EST 1.0 {tablet} active AmLODIPine Besylate 5 MG eCW1 ([facility]) Amlodipine 5 MG Oral Tablet AmLODIPine Besylate 5 MG AmLODIP ine Besylate 5 MG 01/25/2020 12:00:00 AM EST 1.0 {tablet} active AmLODIPine Besylate 5 MG eCW1 ([facility]) Amlodipine 5 MG Oral Tablet AmLODIPine Besylate 5 MG AmLODIP ine Besylate 5 MG 01/25/2020 12:00:00 AM EST 1.0 {tablet} active AmLODIPine Besylate 5 MG eCW1 ([facility]) Acetaminophen 500 MG Oral Tablet Acetaminophen Extra S trength 500 MG Acetaminophen Extra Strength 500 MG 01/23/2020 12:00:00 AM EST 2.0 {tablets_as_needed} active Acetaminophe n Extra Strength 500 MG eCW1 ([facility]) Acetaminophen 500 MG Oral Tablet Acetaminophen Extra S trength 500 MG Acetaminophen Extra Strength 500 MG 01/23/2020 12:00:00 AM EST 2.0 {tablets_as_needed} active Acetaminophe n Extra Strength 500 MG eCW1 ([facility]) Acetaminophen 500 MG Oral Tablet Acetaminophen Extra S trength 500 MG Acetaminophen Extra Strength 500 MG 01/23/2020 12:00:00 AM EST 2.0 {tablets_as_needed} active Acetaminophe n Extra Strength 500 MG eCW1 ([facility]) Acetaminophen 500 MG Oral Tablet Acetaminophen Extra S trength 500 MG Acetaminophen Extra Strength 500 MG 01/23/2020 12:00:00 AM EST 2.0 {tablets_as_needed} active Acetaminophe n Extra Strength 500 MG eCW1 ([facility]) Acetaminophen 500 MG Oral Tablet Acetaminophen Extra S trength 500 MG Acetaminophen Extra Strength 500 MG 01/23/2020 12:00:00 AM EST 2.0 {tablets_as_needed} active Acetaminophe n Extra Strength 500 MG eCW1 ([facility]) Acetaminophen 500 MG Oral Tablet Acetaminophen Extra S trength 500 MG Acetaminophen Extra Strength 500 MG 01/23/2020 12:00:00 AM EST 2.0 {tablets_as_needed} active Acetaminophe n Extra Strength 500 MG eCW1 ([facility]) Acetaminophen 500 MG Oral Tablet Acetaminophen Extra S trength 500 MG Acetaminophen Extra Strength 500 MG 01/23/2020 12:00:00 AM EST 2.0 {tablets_as_needed} active Acetaminophe n Extra Strength 500 MG eCW1 ([facility]) Acetaminophen 500 MG Oral Tablet Acetaminophen Extra S trength 500 MG Acetaminophen Extra Strength 500 MG 01/23/2020 12:00:00 AM EST 2.0 {tablets_as_needed} active Acetaminophe n Extra Strength 500 MG eCW1 ([facility]) Acetaminophen 500 MG Oral Tablet Acetaminophen Extra S trength 500 MG Acetaminophen Extra Strength 500 MG 01/23/2020 12:00:00 AM EST 2.0 {tablets_as_needed} active Acetaminophe n Extra Strength 500 MG eCW1 ([facility]) Acetaminophen 500 MG Oral Tablet Acetaminophen Extra S trength 500 MG Acetaminophen Extra Strength 500 MG 01/23/2020 12:00:00 AM EST 2.0 {tablets_as_needed} active Acetaminophe n Extra Strength 500 MG eCW1 ([facility]) Acetaminophen 500 MG Oral Tablet Acetaminophen Extra S trength 500 MG Acetaminophen Extra Strength 500 MG 01/23/2020 12:00:00 AM EST 2.0 {tablets_as_needed} active Acetaminophe n Extra Strength 500 MG eCW1 ([facility]) Acetaminophen 500 MG Oral Tablet Acetaminophen Extra S trength 500 MG Acetaminophen Extra Strength 500 MG 01/23/2020 12:00:00 AM EST 2.0 {tablets_as_needed} active Acetaminophe n Extra Strength 500 MG eCW1 ([facility]) Acetaminophen 500 MG Oral Tablet Acetaminophen Extra S trength 500 MG Acetaminophen Extra Strength 500 MG 01/23/2020 12:00:00 AM EST 2.0 {tablets_as_needed} active Acetaminophe n Extra Strength 500 MG eCW1 ([facility]) Acetaminophen 500 MG Oral Tablet Acetaminophen Extra S trength 500 MG Acetaminophen Extra Strength 500 MG 01/23/2020 12:00:00 AM EST 2.0 {tablets_as_needed} active Acetaminophe n Extra Strength 500 MG eCW1 ([facility]) Acetaminophen 500 MG Oral Tablet Acetaminophen Extra S trength 500 MG Acetaminophen Extra Strength 500 MG 01/23/2020 12:00:00 AM EST 2.0 {tablets_as_needed} active Acetaminophe n Extra Strength 500 MG eCW1 ([facility]) Acetaminophen 500 MG Oral Tablet Acetaminophen Extra S trength 500 MG Acetaminophen Extra Strength 500 MG 01/23/2020 12:00:00 AM EST 2.0 {tablets_as_needed} active Acetaminophe n Extra Strength 500 MG eCW1 ([facility]) Acetaminophen 500 MG Oral Tablet Acetaminophen Extra S trength 500 MG Acetaminophen Extra Strength 500 MG 01/23/2020 12:00:00 AM EST 2.0 {tablets_as_needed} active Acetaminophe n Extra Strength 500 MG eCW1 ([facility]) Acetaminophen 500 MG Oral Tablet Acetaminophen Extra S trength 500 MG Acetaminophen Extra Strength 500 MG 01/23/2020 12:00:00 AM EST 2.0 {tablets_as_needed} active Acetaminophe n Extra Strength 500 MG eCW1 ([facility]) Acetaminophen 500 MG Oral Tablet Acetaminophen Extra S trength 500 MG Acetaminophen Extra Strength 500 MG 01/23/2020 12:00:00 AM EST 2.0 {tablets_as_needed} active Acetaminophe n Extra Strength 500 MG eCW1 ([facility]) Acetaminophen 500 MG Oral Tablet Acetaminophen Extra S trength 500 MG Acetaminophen Extra Strength 500 MG 01/23/2020 12:00:00 AM EST 2.0 {tablets_as_needed} active Acetaminophe n Extra Strength 500 MG eCW1 ([facility]) Acetaminophen 500 MG Oral Tablet Acetaminophen Extra S trength 500 MG Acetaminophen Extra Strength 500 MG 01/23/2020 12:00:00 AM EST 2.0 {tablets_as_needed} active Acetaminophe n Extra Strength 500 MG eCW1 ([facility]) Acetaminophen 500 MG Oral Tablet Acetaminophen Extra S trength 500 MG Acetaminophen Extra Strength 500 MG 01/23/2020 12:00:00 AM EST 2.0 {tablets_as_needed} active Acetaminophe n Extra Strength 500 MG eCW1 ([facility]) Insurance Providers Payer name Policy type / Coverage type Policy ID Covered green party ID Covered green party's relationship to lou Policy Lou Plan Information MEDICARE [id number] [facility] [id number] W70 MEDICARE [id number] SP [id number] [employer] [id number] SP [id number] MEDICARE [id number] SP [id number] MEDICARE [id number] SP [id number] [facility] MEDICAID [id number] SP [id number] WELLCARE [id number] SP [id number] [employer] GOLD [id number] SP [id number] WELLCARE [id number] SP [id number] [place] [id number] SP [id number] MEDICARE C [id number] S [id number] MEDICAID M [id number] S [id number] SELF PAY ONLY [id number] SP [id number] MEDICARE [id number] SP [id number] MEDICARE [id number] SP [id number] [employer] [id number] SP [id number] Problems, Conditions, and Diagnoses Code Display Name Description Problem Type Effective Dates Data Source(s) Z60.2 Problems related to living alone Problems relate d to living alone Diagnosis 01/25/2021 12:00:00 AM EST NDOC ([facility] ) Z85.42 Personal history of malignant neoplasm o f other parts of uterus Personal history of malignant neoplasm of other parts of uterus Diagnosis 01/25/2021 12:00:00 AM EST NDOC ([facility]) Z85.43 Personal history of malignant neoplasm o f ovary Personal history of malignant neoplasm of ovary Diagnosis 01/25/2021 12:00:00 AM EST NDOC ([facility]) Z91.81 History of falling History of falling Diagnosis 12:00:00 AM EST NDOC ([facility]) F17.210 Nicotine dependence, cigarettes, uncompl icated Nicotine dependence, cigarettes, uncomplicated Diagnosis 01/25/2021 12:00:00 AM EST NDOC ([facility]) I25.2 Old myocardial infarction Old myocardial infarction Di agnosis 01/25/2021 12:00:00 AM EST NDOC ([facility]) E78.5 Hyperlipidemia, unspecified Hyperlipidemia, unspecifie d Diagnosis 01/25/2021 12:00:00 AM EST NDOC ([facility]) M81.0 Age-related osteoporosis without current pathological fracture Age-related osteoporosis without current pathological fracture Diagnosis 12:00:00 AM EST NDOC ([facility]) E55.9 Vitamin D deficiency, unspecified Vitamin D defi ciency, unspecified Diagnosis 01/25/2021 12:00:00 AM EST NDOC ([facility] ) R13.10 Dysphagia, unspecified Dysphagia, unspecified Diagnosi s 01/25/2021 12:00:00 AM EST NDOC ([facility]) K21.9 Gastro-esophageal reflux disease without esophagitis Gastro-esophageal reflux disease without esophagitis Diagnosis 01/25/2021 12:00:00 AM ES T NDOC ([facility]) M54.50 M54.50 Low back pain, unspecified Diagnosis 12:00:00 AM EST NDOC ([facility]) K57.90 Diverticulosis of intestine, part unspecified, without perforation or abscess without bleeding Diverticulosis of intestine, part unspec ified, without perforation or abscess without bleeding Diagnosis 01/25/2021 12:00:00 AM EST NDOC ([facility]) K92.2 Gastrointestinal hemorrhage, unspecified Gastrointestinal hemorrhage, unspecified Diagnosis 01/25/2021 12:00:00 AM EST NDOC ([facility]) D53.9 Nutritional anemia, unspecified Nutritional anemia, un specified Diagnosis 01/25/2021 12:00:00 AM EST NDOC ([facility]) R29.6 Repeated falls Repeated falls Diagnosis 01/25/2021 12:00: 00 AM EST NDOC ([facility]) I10 Essential (primary) hypertension Essential (primary) h ypertension Diagnosis 01/25/2021 12:00:00 AM EST NDOC ([facility]) I25.10 Atherosclerotic heart diseas e of [place] coronary artery without angina pectoris Atherosclerotic heart disease of [place] coronary artery without angina pectoris Diagnosis 01/25/2021 12:00:00 AM EST NDOC ([facility]) J98.11 Atelectasis Atelectasis Diagnosis 01/25/2021 12:00:00 AM EST NDOC ([facility]) U07.1 U07.1 COVID-19 Diagnosis 01/25/2021 12:00:00 AM ES T NDOC ([facility]) A04.72 Enterocolitis due to Clostridium diffici le, not specified as recurrent Enterocolitis due to Clostridium difficile, not specified as recurrent Diagnosis 01/25/2021 12:00:00 AM EST NDOC ([facility] ) R29.6 [id number] Frequent falls Problem 12/27/2020 12:00:00 A M EDT eCW1 ([facility]) E55.9 Vitamin D deficiency Vitamin D deficiency Problem 07/20/2020 12:00:00 AM EDT eCW1 ([facility]) D75.89 Macrocytosis Macrocytosis Problem 04/08/2020 12:00:00 A M EST eCW1 ([facility]) D75.89 [id number] Macrocytosis without anemia Problem 02/20/20 12:00:00 AM EST eCW1 ([facility]) K21.9 [id number] Gastroesophageal ref lux disease, unspecified whether esophagitis present Problem 01/07/2020 12:00:00 AM EDT eCW1 ([facility]) E78.2 [id number] Mixed hyperlipidemia Problem 01/07/2020 12:0 0:00 AM EDT eCW1 ([facility]) I10 [id number] Essential hypertension Problem 01/07/2020 12 :00:00 AM EDT eCW1 ([facility]) Z86.73 [id number] History of TIA (transient ischemic attack ) Problem 01/07/2020 12:00:00 AM EDT eCW1 ([facility]) F17.210 [id number] Cigarette nicotine dependence without com plication Problem 01/07/2020 12:00:00 AM EDT eCW1 ([facility]) Surgeries/Procedures Procedure Description Date Indications Data Source(s) OFFICE OUTPATIENT VISIT 25 MINUTES 09/29/2020 12:00:00 AM EDT EL ([facility]) ECG ROUTINE ECG W/LEAST 12 LDS W/I&R 01/07/2020 12:00: 00 AM EDT eCW1 ([facility]) Immunization: Flublok Quadrivalent (18 years & older) 0.5mL IM (Influenza) 01/07/2020 12:00:00 AM EDT eCW1 ([facility]) Results ID Date Data Source [id number] 01/20/2021 07:38:00 PM EST [facility] Name Value Range Interpretation Code Description Data Tram rce(s) Supporting Document(s) SARS coronavirus 2 RNA [Presence] in Res piratory specimen by ABY with probe detection POSITIVE [facility] This lab was ordered by [facility] a nd reported by [facility]. ID Date Data Source [id number] 12/27/2020 12:22:00 PM EDT [facility] Name Value Range Interpretation Code Description Data Tram rce(s) Supporting Document(s) SARS coronavirus 2 RNA [Presence] in Res piratory specimen by ABY with probe detection NEGATIVE [facility] This lab was ordered by [facility] a nd reported by [facility]. ID Date Data Source [id number] 03/18/2020 10:06:34 AM EST [facility] Name Value Range Interpretation Code Description Data Tram rce(s) Supporting Document(s) &PDF [facility] PCPESw2uEwWYBxMl23/KNTddCCFpm4MuFFvvTVt5ERgoIWOkU1TuyGwiRLEHDO6YPYRMZg2HBVANZO0e [facility] [file] ICAgICAgICAgICAgICAgICAgICAgICAgICAgICAgICAgICAgICAgICAgICAgICAgICAgICAgICAgICAg ICAgICAgICAgICAgICAgICAgICAgICAgICAgICAgICAgICAgICANCiAgICAgICAgICAgICAgICAgICAg ICAgICAgICAgICAgICAgICAgICAgICAgICAgICAgIC AgICAgICAgICAgICAgICAgICAgICAgICAgICAgICAgICAgICAgICAgICAgICAgICANCiAgICAgICAgIC AgICAgICAgICAgICAgICAgICAgICAgICAgICAgICAgICAgICAgICAgICAgICAgICAgICAgICAgICAgIC AgICAgICAgICAgICAgICAgICAgICAgICAgICAgICAN CiAgICAgICAgICAgICAgICAgICAgICAgICAgICAgICAgICAgICAgICAgICAgICAgICAgICAgICAgICAg ICAgICAgICAgICAgICAgICAgICAgICAgICAgICAgICAgICAgICAgICANCiAgICAgICAgICAgICAgICAg ICAgICAgICAgICAgICAgICAgICAgICAgICAgICAgIC AgICAgICAgICAgICAgICAgICAgICAgICAgICAgICAgICAgICAgICAgICAgICAgICAgICANCiAgICAgIC AgICAgICAgICAgICAgICAgICAgICAgICAgICAgICAgICAgICAgICAgICAgICAgICAgICAgICAgICAgIC AgICAgICAgICAgICAgICAgICAgICAgICAgICAgICAg ICANCiAgICAgICAgICAgICAgICAgICAgICAgICAgICAgICAgICAgICAgICAgICAgICAgICAgICAgICAg ICAgICAgICAgICAgICAgICAgICAgICAgICAgICAgICAgICAgICAgICAgICANCiAgICAgICAgICAgICAg ICAgICAgICAgICAgICAgICAgICAgICAgICAgICAgIC AgICAgICAgICAgICAgICAgICAgICAgICAgICAgICAgICAgICAgICAgICAgICAgICAgICAgICANCiAgIC AgICAgICAgICAgICAgICAgICAgICAgICAgICAgICAgICAgICAgICAgICAgICAgICAgICAgICAgICAgIC AgICAgICAgICAgICAgICAgICAgICAgICAgICAgICAg ICAgICANCiAgICAgICAgICAgICAgICAgICAgICAgICAgICAgICAgICAgICAgICAgICAgICAgICAgICAg ICAgICAgICAgICAgICAgICAgICAgICAgICAgICAgICAgICAgICAgICAgICAgICANCjw/bRAcW8qbzLTs vyJ9H8peTv5XDw0JKG2yk8WrTUKgLEayswPjJgmFRf KsBOYqLpeYFju3XNedPE2QkIBrA8OiU2YpUFtuNU0FILKiSKMzjVJhRTJaGDGrRqL2ZRCuRViaRZ9CjZ XkTIchWYNlDNHwWY0CUPXdT175tbDaBI3PIo8BOsGmLJ7owl0GAHveAGRxJskFFdx6DQlwVO1JvWAsR1 ZbaFGrd4tBZtBxT1QNMLE9DDHhFh7VDZFhJzEvTNTd NMlrQJ3jOCDkTADEbLgsvzI3VR1CFK6kujYtRH1GErHbUl8aNs5XYdKxC5RaU7HdQXHxAVTKLEsaJJ8C TMCfGXZ9XMNzEPXkQZWQIwLuB17dQE8AM3Wcc10tRkJ7BEPhVyXuOStiKI84lUolreGwzMSeiQzsKA5F Cj4+DQplbmRvYmoNCnhyZWYNCjAgMjANCjAwMDAwMD PvSGZzBtF3MiHwPz3APAXxCTPyFWHtZyKoDNXmJPUsBDwqSHCiSRP9HfuwACHzXQEpUK6XPkFpPQDeJN pdNRjlFUQzMZDzkn3BLQHsLZKcFVL4FFQzGSSlVGBiOMovWPBbGPBwQRN2DDAeBKYsID9OVcXnDLUcJU R7UIIxVKPxQVElpm2YYCJpEOZaPoJ6XcGxDEUzPIMd ICxkKHMmJDJrVhV1DBYiYGVrMB6MZbYaQMYoRAG4MBbpIOMoNJIhsz1QTNSoHMMaIAqfLzLvQUMgJMYc ATozJTAmVTO4ZOH8YKVkWWTbOW6BLrKgFQTtAJFaCYZjWHDiUZEybw9PUWBnURFtAvO3SwBzDWQaYAYh AAcaETEgOCA9RRA6LJDaJKSdME3RDlSbQDZvUYF1Uf rwZXTcCJImpc2GEJRtUDFoDgOrKEVmHQBbVJTvFGapOBIdDEF2HwF3VTXkYBRwUN6RXxGxRHHsGMY5Gc dwSAWcOXAsdd0YIDGeSBGpHeDmMdFcCXMdNOCuGWa3mfSqcKMiZZf8UC8HD2ZxnoQgViWVEl4Sg375TS A9BYJfBa7TL8rxRx4gKKKpSIKVLr6FKUk7WQFnQska ITIcP5QlWPJjACHxQUUwCqD1WTcqXxIuPHo+QSefYjOfJ7QsILHfImS7BfCdEAJlRSO1DwVxLXFyEPNl Oh3xXVHQFh8+YXexfDKthArgOOXSKdH7LSV2NUupEYYUUt4Y ID Date Data Source FERRITIN 02/02/2020 12:00:00 AM EST eCW1 ([facility]) Name Value Range Interpretation Code Description Data Tram rce(s) Supporting Document(s) 130 9-252 FERRITIN eCW1 ([facility]) ID Date Data Source MAGNESIUM LEVEL 02/02/2020 12:00:00 AM EST eCW1 ([facility]) Name Value Range Interpretation Code Description Data Tram rce(s) Supporting Document(s) 2.1 1.8-2.4 MAGNESIUM LEVEL eCW1 ([facility]) ID Date Data Source IRON (FE) 02/02/2020 12:00:00 AM EST eCW1 ([facility]) Name Value Range Interpretation Code Description Data Tram rce(s) Supporting Document(s) 112 50-170 IRON (FE) eCW1 ([facility]) ID Date Data Source Comprehensive Metabolic Profile (CMP) 02/02/2020 12:00:00 AM EST eCW1 ([facility]) Name Value Range Interpretation Code Description Data Tram rce(s) Supporting Document(s) 90 70-100 GLUCOSE, FASTING eCW1 ([facility]) 137 136-145 SODIUM LEVEL eCW1 ([facility]) 3 7-18 BLOOD UREA NITROGEN eCW1 ([facility]) 0.58 0.55-1.30 CREATININE FOR GFR eCW1 ([facility]) > 60.0 >39 GLOMERULAR FILTRATION RATE eCW 1 ([facility]) 4.2 3.5-5.1 POTASSIUM SERUM eCW1 ([facility]) 9.2 8.8-10.2 CALCIUM LEVEL eCW1 ([facility]) 25 21-32 CARBON DIOXIDE LEVEL eCW1 ([facility]) 104 98-107 CHLORIDE LEVEL eCW1 ([facility]) 26 7-37 AST/SGOT eCW1 ([facility]) 0.3 0.2-1.0 BILIRUBIN,TOTAL eCW1 ([facility]) 6.5 6.4-8.2 TOTAL PROTEIN eCW1 ([facility]) 2.8 3.2-5.2 ALBUMIN eCW1 ([facility]) 23 12-78 ALT/SGPT eCW1 ([facility]) 115 45-117 ALKALINE PHOSPHATASE eCW1 ([facility]) 0.8 1.2-2.2 ALBUMIN/GLOBULIN RATIO eCW1 ([facility]) ID Date Data Source CBC with Differential 02/02/2020 12:00:00 AM EST eCW1 ([facility]) Name Value Range Interpretation Code Description Data Tram rce(s) Supporting Document(s) 4.09 4.00-5.40 RED BLOOD COUNT eCW1 ([facility]) 7.5 4.0-10.0 WHITE BLOOD COUNT eCW1 ([facility]) 14.5 12.0-15.5 HEMOGLOBIN eCW1 ([facility]) 107.6 80.0-96.0 MEAN CORPUSCULAR VOLUME e CW1 ([facility]) 33.0 32.0-36.5 MEAN CORPUSCULAR HGB CONC eCW1 ([facility]) 35.5 27.0-33.0 MEAN CORPUSCULAR HEMOGLOB IN eCW1 ([facility]) 44.0 36.0-47.0 HEMATOCRIT eCW1 ([facility]) 44.0 36.0-66.0 NEUTROPHILS % eCW1 ([facility]) 339 150-450 PLATELET COUNT, AUTOMATED eCW1 ([facility]) 13.2 11.5-14.5 RED CELL DISTRIBUTION WID TH eCW1 ([facility]) 44.6 24.0-44.0 LYMPH % eCW1 ([facility]) 1.6 0.0-3.0 EOS % eCW1 ([facility]) 3.3 1.5-8.5 NEUTROPHILS # eCW1 ([facility]) 8.4 0.0-5.0 MONO % eCW1 ([facility]) 1.1 0.0-1.0 BASO % eCW1 ([facility]) 3.3 1.5-5.0 LYMPH # eCW1 ([facility]) 0.1 0.0-0.2 BASO # eCW1 ([facility]) 0.6 0.0-0.8 MONO # eCW1 ([facility]) 0.1 0.0-0.5 EOS # eCW1 ([facility]) ID Date Data Source FREE T4 & TSH PANEL 01/08/2020 04:13:07 AM EDT eCW1 ([facility]) Name Value Range Interpretation Code Description Data Tram rce(s) Supporting Document(s) 1.32 eCW1 ([facility]) 0.859 eCW1 ([facility]) Procedure Social History Code Duration Value Status Description Data Source(s ) Smoking 12/27/2020 12:00:00 AM EDT Current Smoker completed Curre nt Smoker eCW1 ([facility]) Smoking 12/27/2020 12:00:00 AM EDT Current Smoker completed Curre nt Smoker eCW1 ([facility]) Smoking 12/27/2020 12:00:00 AM EDT Current Smoker completed Curre nt Smoker eCW1 ([facility]) Smoking 12/27/2020 12:00:00 AM EDT Current Smoker completed Curre nt Smoker eCW1 ([facility]) Smoking 12/27/2020 12:00:00 AM EDT Current Smoker completed Curre nt Smoker eCW1 ([facility]) Smoking 12/27/2020 12:00:00 AM EDT Current Smoker completed Curre nt Smoker eCW1 ([facility]) Smoking 12/27/2020 12:00:00 AM EDT Current Smoker completed Curre nt Smoker eCW1 ([facility]) Smoking 11/08/2020 12:00:00 AM EDT Current Smoker completed Curre nt Smoker eCW1 ([facility]) Smoking 08/26/2020 12:00:00 AM EDT Current Smoker completed Curre nt Smoker eCW1 ([facility]) Smoking 08/26/2020 12:00:00 AM EDT Current Smoker completed Curre nt Smoker eCW1 ([facility]) Smoking 07/20/2020 12:00:00 AM EDT Current Smoker completed Curre nt Smoker eCW1 ([facility]) Smoking 07/20/2020 12:00:00 AM EDT Current Smoker completed Curre nt Smoker eCW1 ([facility]) Smoking 07/20/2020 12:00:00 AM EDT Current Smoker completed Curre nt Smoker eCW1 ([facility]) Smoking 07/08/2020 12:00:00 AM EDT Current Smoker completed Curre nt Smoker eCW1 ([facility]) Smoking 07/08/2020 12:00:00 AM EDT Current Smoker completed Curre nt Smoker eCW1 ([facility]) Smoking 04/08/2020 12:00:00 AM EST Current Smoker completed Curre nt Smoker eCW1 ([facility]) Smoking 04/08/2020 12:00:00 AM EST Current Smoker completed Curre nt Smoker eCW1 ([facility]) Smoking 04/08/2020 12:00:00 AM EST Current Smoker completed Curre nt Smoker eCW1 ([facility]) Smoking 04/08/2020 12:00:00 AM EST Current Smoker completed Curre nt Smoker eCW1 ([facility]) Smoking 04/08/2020 12:00:00 AM EST Current Smoker completed Curre nt Smoker eCW1 ([facility]) Smoking 04/08/2020 12:00:00 AM EST Current Smoker completed Curre nt Smoker eCW1 ([facility]) Smoking 04/08/2020 12:00:00 AM EST Current Smoker completed Curre nt Smoker eCW1 ([facility]) Smoking 04/08/2020 12:00:00 AM EST Current Smoker completed Curre nt Smoker eCW1 ([facility]) Smoking 02/20/2020 12:00:00 AM EST Current Smoker completed Curre nt Smoker eCW1 ([facility]) Smoking 02/20/2020 12:00:00 AM EST Current Smoker completed Curre nt Smoker eCW1 ([facility]) Smoking 02/20/2020 12:00:00 AM EST Current Smoker completed Curre nt Smoker eCW1 ([facility]) Smoking 02/02/2020 12:00:00 AM EST Current Smoker completed Curre nt Smoker eCW1 ([facility]) Smoking 01/07/2020 12:00:00 AM EDT Current Smoker completed Curre nt Smoker eCW1 ([facility]) Smoking 01/07/2020 12:00:00 AM EDT Current Smoker completed Curre nt Smoker eCW1 ([facility]) Smoking 01/07/2020 12:00:00 AM EDT Current Smoker completed Curre nt Smoker eCW1 ([facility]) Smoking 01/07/2020 12:00:00 AM EDT Current Smoker completed Curre nt Smoker eCW1 ([facility]) Vital Signs ID Date Data Source UNK Name Value Range Interpretation Code Description Data Source(s) Body weight 134 [lb_av] 134 [lb_av] eCW1 ([facility]) Body height 65 [in_i] 65 [in_i] eCW1 ([facility]) Body mass index (BMI) [Ratio] 22.30 kg/m2 22.30 kg/m2 eCW1 ([facility]) Heart rate 98 /min 98 /min eCW1 ([facility]) Respiratory rate 18 /min 18 /min eCW1 ([facility]) Body temperature 97.1 [degF] 97.1 [degF] eCW1 ( [facility]) Systolic blood pressure 100 mm[Hg] 100 mm[Hg] e CW1 ([facility]) Diastolic blood pressure 58 mm[Hg] 58 mm[Hg] eCW1 ([facility]) Systolic blood pressure 134 mm[Hg] 134 mm[Hg] M EDENT ([facility], ) Diastolic blood pressure 68 mm[Hg] 68 mm[Hg] [facility], ) Body height 64 [in_i] 64 [in_i] [facility] ([facility]) 5'4" Body weight 142.00 [lb_av] 142.00 [lb_av] MEDEN T ([facility]) Body mass index (BMI) [Ratio] 24.4 kg/m2 24.4 k g/m2 [facility] ([facility]) [place] body weight 120 [lb_av] 120 [lb_av] MEDEN T ([facility]) Body weight 64.411 kg 64.411 kg [facility] ([facility]) Body surface area Derived from formula 1.69 m2 1.69 m2 MEDPIERO ([facility], ) Body weight 143 [lb_av] 143 [lb_av] eCW1 ([facility]) Body height 65 [in_i] 65 [in_i] eCW1 ([facility]) Body mass index (BMI) [Ratio] 23.79 kg/m2 23.79 kg/m2 eCW1 ([facility]) Heart rate 101 /min 101 /min eCW1 ([facility]) Respiratory rate 18 /min 18 /min eCW1 ([facility]) Body temperature 96.8 [degF] 96.8 [degF] eCW1 ( [facility]) Systolic blood pressure 98 mm[Hg] 98 mm[Hg] e CW1 ([facility]) Diastolic blood pressure 60 mm[Hg] 60 mm[Hg] eCW1 ([facility]) Body weight 140 [lb_av] 140 [lb_av] eCW1 ([facility]) Body height 65 [in_i] 65 [in_i] eCW1 ([facility]) Body mass index (BMI) [Ratio] 23.29 kg/m2 23.29 kg/m2 eCW1 ([facility]) Heart rate 93 /min 93 /min eCW1 ([facility]) Respiratory rate 18 /min 18 /min eCW1 ([facility]) Body temperature 97.4 [degF] 97.4 [degF] eCW1 ( [facility]) Systolic blood pressure 122 mm[Hg] 122 mm[Hg] e CW1 ([facility]) Diastolic blood pressure 60 mm[Hg] 60 mm[Hg] eCW1 ([facility]) Body weight 140 [lb_av] 140 [lb_av] eCW1 ([facility]) Body height 65 [in_i] 65 [in_i] eCW1 ([facility]) Body mass index (BMI) [Ratio] 23.29 kg/m2 23.29 kg/m2 eCW1 ([facility]) Heart rate 92 /min 92 /min eCW1 ([facility]) Respiratory rate 18 /min 18 /min eCW1 ([facility]) Body temperature 98.1 [degF] 98.1 [degF] eCW1 ( [facility]) Systolic blood pressure 138 mm[Hg] 138 mm[Hg] e CW1 ([facility]) Diastolic blood pressure 78 mm[Hg] 78 mm[Hg] eCW1 ([facility]) Heart rate 92 /min 92 /min eCW1 ([facility]) Body weight 134 [lb_av] 134 [lb_av] eCW1 ([facility]) Body height 65 [in_i] 65 [in_i] eCW1 ([facility]) Body mass index (BMI) [Ratio] 22.30 kg/m2 22.30 kg/m2 eCW1 ([facility]) Respiratory rate 18 /min 18 /min eCW1 ([facility]) Body temperature 96.5 [degF] 96.5 [degF] eCW1 ( [facility]) Systolic blood pressure 116 mm[Hg] 116 mm[Hg] e CW1 ([facility]) Diastolic blood pressure 60 mm[Hg] 60 mm[Hg] eCW1 ([facility]) Body weight 134 [lb_av] 134 [lb_av] eCW1 ([facility]) Body height 65 [in_i] 65 [in_i] eCW1 ([facility]) Body mass index (BMI) [Ratio] 22.30 kg/m2 22.30 kg/m2 eCW1 ([facility]) Heart rate 101 /min 101 /min eCW1 ([facility]) Respiratory rate 18 /min 18 /min eCW1 ([facility]) Body temperature 97.3 [degF] 97.3 [degF] eCW1 ( [facility]) Systolic blood pressure 120 mm[Hg] 120 mm[Hg] e CW1 ([facility]) Diastolic blood pressure 60 mm[Hg] 60 mm[Hg] eCW1 ([facility]) Body weight 135.4 [lb_av] 135.4 [lb_av] eCW1 ([facility]) Body height 65 [in_i] 65 [in_i] eCW1 ([facility]) Body mass index (BMI) [Ratio] 22.53 kg/m2 22.53 kg/m2 eCW1 ([facility]) Heart rate 93 /min 93 /min eCW1 ([facility]) Respiratory rate 18 /min 18 /min eCW1 ([facility]) Body temperature 98.2 [degF] 98.2 [degF] eCW1 ( [facility]) Systolic blood pressure 122 mm[Hg] 122 mm[Hg] e CW1 ([facility]) Diastolic blood pressure 62 mm[Hg] 62 mm[Hg] eCW1 ([facility]) Body weight 135 [lb_av] 135 [lb_av] eCW1 ([facility]) Body height 65 [in_i] 65 [in_i] eCW1 ([facility]) Body mass index (BMI) [Ratio] 22.46 kg/m2 22.46 kg/m2 eCW1 ([facility]) Heart rate 101 /min 101 /min eCW1 ([facility]) Respiratory rate 20 /min 20 /min eCW1 ([facility]) Body temperature 96 [degF] 96 [degF] eCW1 ([facility]) Systolic blood pressure 120 mm[Hg] 120 mm[Hg] e CW1 ([facility]) Diastolic blood pressure 62 mm[Hg] 62 mm[Hg] eCW1 ([facility]) Patient Treatment Plan of Care Planned Activity Planned Date Details Description Data Source (s) Vitamin D3 125 MCG (5000 UT) 07/22/2020 12:00:00 AM EDT eCW1 ([facility]) Vitamin D3 125 MCG (5000 UT) 07/22/2020 12:00:00 AM EDT eCW1 ([facility]) Naproxen 375 MG Oral Tablet 07/20/2020 12:00:00 AM EDT eCW1 ([facility]) Naproxen 375 MG Oral Tablet 07/20/2020 12:00:00 AM EDT eCW1 ([facility]) Naproxen 375 MG Oral Tablet 07/20/2020 12:00:00 AM EDT eCW1 ([facility]) Alendronic acid 70 MG Oral Tablet 04/29/2020 12:00:00 AM EST eCW1 ([facility]) Alendronic acid 70 MG Oral Tablet 04/29/2020 12:00:00 AM EST eCW1 ([facility]) Alendronic acid 70 MG Oral Tablet 04/29/2020 12:00:00 AM EST eCW1 ([facility]) Alendronic acid 70 MG Oral Tablet 04/29/2020 12:00:00 AM EST eCW1 ([facility]) Amlodipine 2.5 MG Oral Tablet 04/08/2020 12:00:00 AM EST eCW1 ([facility]) Amlodipine 2.5 MG Oral Tablet 04/08/2020 12:00:00 AM EST eCW1 ([facility]) Amlodipine 2.5 MG Oral Tablet 04/08/2020 12:00:00 AM EST eCW1 ([facility]) Amlodipine 2.5 MG Oral Tablet 04/08/2020 12:00:00 AM EST eCW1 ([facility]) Amlodipine 2.5 MG Oral Tablet 04/08/2020 12:00:00 AM EST eCW1 ([facility]) Amlodipine 2.5 MG Oral Tablet 04/08/2020 12:00:00 AM EST eCW1 ([facility]) Amlodipine 2.5 MG Oral Tablet 04/08/2020 12:00:00 AM EST eCW1 ([facility]) Amlodipine 2.5 MG Oral Tablet 04/08/2020 12:00:00 AM EST eCW1 ([facility]) Amlodipine 2.5 MG Oral Tablet 04/08/2020 12:00:00 AM EST eCW1 ([facility]) Amlodipine 2.5 MG Oral Tablet 04/08/2020 12:00:00 AM EST eCW1 ([facility]) Amlodipine 5 MG Oral Tablet 01/25/2020 12:00:00 AM EST eCW1 ([facility]) Acetaminophen 500 MG Oral Tablet 01/23/2020 12:00:00 AM EST eCW1 ([facility]) Acetaminophen 500 MG Oral Tablet 01/23/2020 12:00:00 AM EST eCW1 ([facility]) Acetaminophen 500 MG Oral Tablet 01/23/2020 12:00:00 AM EST eCW1 ([facility])
--- OUTSIDE RECORDS SUMMARY | 2021-02-21 14:40 | CCD ---
Author Author [facility] Organization [facility] Address Unknown Phone Unavailable Care Team Providers Care Regional Training Manager Name Role Phone Robyn Owen Unavailable PROBLEMS ALLERGIES ENCOUNTERS from 1945 to 2021-01-21 IMMUNIZATIONS SOCIAL HISTORY REASON FOR REFERRAL No Information VITAL SIGNS MEDICATIONS PROCEDURES No Information RESULTS No Results REASON FOR VISIT MEDICAL (GENERAL) HISTORY Goals Section Health Concerns MEDICAL EQUIPMENT No Information MENTAL STATUS FUNCTIONAL STATUS ASSESSMENTS No Information PLAN OF TREATMENT Insurance Providers
[2021-02-21] MEDS ORDERED: ONDANSETRON 4MG/2ML VIAL IV ONE (18:15)
[2021-02-21] MEDS ORDERED: fentaNYL 100 MCG/2 ML INJECTION (J3010) IV PRN (18:15)
[2021-02-21] MEDS ORDERED: AMPICILLIN SOD/SULBACTAM SOD 3 GM in D5W MINI-BAG PLUS 100 ML IV ONE (18:15)
[2021-02-21] MEDS ORDERED: NS 1,000 ML IV ONE (18:15)
--- NOTE | 2021-02-21 18:46 | ECGEPIP ---
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
[2021-02-21 19:01] LABS: BASO % 0.3 % (0.0-1.0); HEMATOCRIT 40.5 % (36.0-47.0); LYMPH # 1.6 10^3/uL (1.5-5.0); LYMPH % 17.1 % (24.0-44.0); MEAN CORPUSCULAR HEMOGLOBIN 37.1 pg (27.0-33.0); MEAN CORPUSCULAR HGB CONC 34.6 g/dl (32.0-36.5); MEAN CORPUSCULAR VOLUME 107.4 fl (80.0-96.0); MONO # 0.7 10^3/uL (0.0-0.8); MONO % 7.2 % (2.0-8.0); NEUTROPHILS # 6.9 10^3/uL (1.5-8.5); NEUTROPHILS % 75.1 % (36.0-66.0); PLATELET COUNT, AUTOMATED 242 10^3/uL (150-450); RED BLOOD COUNT 3.77 10^6/uL (4.00-5.40); WHITE BLOOD COUNT 9.2 10^3/uL (4.0-10.0)
[2021-02-21] MEDS ORDERED: NS 640 ML in IV 1 EA IV ONE (19:25)
[2021-02-21] MEDS ORDERED: NS 1,000 ML IV SCH (19:25)
--- OUTSIDE RECORDS SUMMARY | 2021-02-21 19:32 | CCD ---
Author [facility] Address Unknown Phone Unavailable Care Team Providers Care Manager Oracle Database Name Role Phone CLEOPATRA REED MD Unavailable [...] Unavailable Unavailable REINDL, CLEOPATRA FARR Unavailable Unavailable REINDLCLEOPATRA MD Unavailable Unavailable REINDL, CLEOPATRA FARR Unavailable Unavailable [...] Unavailable Unavailable DEREK, CLEOPATRA FARR Unavailable Unavailable Skipton, E Robyn MD Unavailable [...] Unavailable Unavailable Allyson Kevin MD Unavailable Unavailable lAlyson Kevin MD Unavailable Unavailable Allyson Kevin MD [...] is protected by Article 27-F of the [facility] Public Health law. If you continue you may have access to information: Regarding HIV / AIDS; Provided by facilities licensed or operated by the [facility] Office of Mental Health; or Provided by the [facility] Office for People With Developmental Disabilities. If such information is present, then the following [facility] mandated warning applies: This information has [...] law may result in a fine or senior living sentence or both. A general authorization for the release of medical or other information is NOT sufficient authorization for further disc losure. Allergies and Adverse Reactions Type Description Substance Reaction Status Data Source(s ) Unknown bee pollen Bee pollen Reaction Unknown NDOC ([facility]) Unknown atorvastatin atorvastatin Reaction Unknown NDO C ([facility]) Unknown alendronate sodium alendronate sodium Reaction Unknown NDOC ([facility]) Unknown oxycodone Oxycodone Reaction Unknown [facility] Unknown codeine Codeine Reaction Unknown NDOC ([facility]) Unknown morphine Morphine Reaction Unknown NDOC ([facility]) Encounters Encounter Providers Location Date Indications Data Source(s ) [place] [address] [facility] [address] 02/11/2021 12:00:00 AM EST eCW1 [facility] [place] [address] [facility] [place] [address] 01/28/2021 12:00:00 AM EST eCW1 ([facility]) O Attender: Robyn Owen MD 01/25/2021 12:00:00 A M EST NDOC ([facility]) Patient admitted. Unknown [address] [facility] [address] 01/25/2021 12:00:00 AM EST eCW1 [facility] [place] [address] [facility] [address] 01/20/2021 12:00:00 AM EST eCW1 [facility] [place] [address] [facility] [place] [address] 01/12/2021 12:00:00 AM EDT eCW1 ([facility] [place] [address] [facility] [address] 12/30/2020 12:00:00 AM EDT eCW1 [facility] [place] [address] [facility] [place] [address] 12/27/2020 12:00:00 AM EDT eCW1 [facility] [place] [address] [facility] [place] [address] 12/09/2020 12:00:00 AM EDT eCW1 ([facility]) Outpatient Attender: CLEOPATRA Goldberg/Arnoldo/Igor/Rene kearney 09/29/2020 03:00:00 PM EDT MEDENT ([facility]) [place] [address] [facility] [address] 08/27/2020 12:00:00 AM EDT eCW1 [facility] [place] [address] [facility] [address] 08/26/2020 12:00:00 AM EDT eCW1 ([facility]) [place] [address] [facility] [address] 07/27/2020 12:00:00 AM EDT eCW1 [facility] [place] [address] [facility] [address] 07/22/2020 12:00:00 AM EDT eCW1 ([facility]) [place] [address] [facility] [address] 07/20/2020 12:00:00 AM EDT eCW1 ([facility]) [place] [address] [facility] [address] 07/19/2020 12:00:00 AM EDT eCW1 ([facility]) [place] [address] [facility] [place] [address] 07/08/2020 12:00:00 AM EDT eCW1 ([facility] [place] [address] [facility] [address] 06/24/2020 12:00:00 AM EDT eCW1 ([facility]) [place] [address] [facility] [place] [address] 06/07/2020 12:00:00 AM EDT eCW1 ([facility]) [place] [address] [facility] [place] [address] 05/20/2020 12:00:00 AM EST eCW1 ([facility]) [place] [address] [facility] [address] 04/29/2020 12:00:00 AM EST eCW1 ([facility]) [place] [address] [facility] [address] 04/21/2020 12:00:00 AM EST eCW1 ([facility]) [place] [address] [facility] [address] 04/21/2020 12:00:00 AM EST eCW1 ([facility]) [place] [address] [facility] [address] 04/13/2020 12:00:00 AM EST eCW1 ([facility]) [place] [address] [facility] [address] 04/08/2020 12:00:00 AM EST eCW1 [facility] [place] [address] [facility] [address] 03/31/2020 12:00:00 AM EST eCW1 ([facility] Outpatient JOSE ALFREDO.LUCILLE-JOSE ALFREDO 03/18/2020 10:16:27 AM EST [facility] Outpatient Referrer: Allyson GAINES 06/2020 10:29:02 AM EST [facility] [place] [address] [facility] [address] 03/10/2020 12:00:00 AM EST eCW1 ([facility]) [place] [address] [facility] [address] 02/20/2020 12:00:00 AM EST eCW1 ([facility] Outpatient Referrer: Allyson MCMULLEN 03/2019 12:00:00 AM EST [facility] [place] [address] [facility] [address] 02/02/2020 12:00:00 AM EST [facility] [place] [address] [facility] [address] 01/26/2020 12:00:00 AM EST eCW1 ([facility]) [place] [address] [facility] [address] 01/25/2020 12:00:00 AM EST eCW1 ([facility]) [place] [address] [facility] [address] 01/08/2020 12:00:00 AM EDT eCW1 ([facility]) [place] [address] [facility] [address] 01/07/2020 12:00:00 AM EDT eCW1 ([facility]) Immunizations Vaccine Date Status Description Data Source(s) COVID-19 dose #2 given elsewhere Unspecified 06/15/2020 09:3 3:00 AM EDT completed eCW1 ([facility]) COVID-19 dose #2 given elsewhere Unspecified 06/15/2020 09:3 3:00 AM EDT completed eCW1 ([facility]) COVID-19 dose #2 given elsewhere Unspecified 06/15/2020 09:3 3:00 AM EDT completed eCW1 ([facility]) COVID-19 dose #2 given elsewhere Unspecified 06/15/2020 09:3 3:00 AM EDT completed eCW1 ([facility]) COVID-19 dose #2 given elsewhere Unspecified 06/15/2020 09:3 3:00 AM EDT completed eCW1 ([facility]) COVID-19 dose #2 given elsewhere Unspecified 06/15/2020 09:3 3:00 AM EDT completed eCW1 ([facility]) COVID-19 dose #2 given elsewhere Unspecified 06/15/2020 09:3 3:00 AM EDT completed eCW1 ([facility]) COVID-19 dose #2 given elsewhere Unspecified 06/15/2020 09:3 3:00 AM EDT completed eCW1 ([facility]) COVID-19 dose #2 given elsewhere Unspecified 06/15/2020 09:3 3:00 AM EDT completed eCW1 ([facility]) COVID-19 dose #2 given elsewhere Unspecified 06/15/2020 09:3 3:00 AM EDT completed eCW1 ([facility]) COVID-19 dose #2 given elsewhere Unspecified 06/15/2020 09:3 3:00 AM EDT completed eCW1 ([facility]) COVID-19 dose #2 given elsewhere Unspecified 06/15/2020 09:3 3:00 AM EDT completed eCW1 ([facility]) COVID-19 dose #2 given elsewhere Unspecified 06/15/2020 09:3 3:00 AM EDT completed eCW1 ([facility]) COVID-19 dose #2 given elsewhere Unspecified 06/15/2020 09:3 3:00 AM EDT completed eCW1 ([facility]) COVID-19 dose #2 given elsewhere Unspecified 06/15/2020 09:3 3:00 AM EDT completed eCW1 ([facility]) COVID-19 VACCINE Moderna 06/12/2020 12:00:00 AM EDT completed [employer] Vaccine Series Complete: YESThis Data wa s Submitted to [facility] Via [employer]. COVID-19 dose #1 given elsewhere Unspecified 05/24/2020 09:3 3:00 AM EDT completed eCW1 ([facility]) COVID-19 dose #1 given elsewhere Unspecified 05/24/2020 09:3 3:00 AM EDT completed eCW1 ([facility]) COVID-19 dose #1 given elsewhere Unspecified 05/24/2020 09:3 3:00 AM EDT completed eCW1 ([facility]) COVID-19 dose #1 given elsewhere Unspecified 05/24/2020 09:3 3:00 AM EDT completed eCW1 ([facility]) COVID-19 dose #1 given elsewhere Unspecified 05/24/2020 09:3 3:00 AM EDT completed eCW1 ([facility]) COVID-19 dose #1 given elsewhere Unspecified 05/24/2020 09:3 3:00 AM EDT completed eCW1 ([facility]) COVID-19 dose #1 given elsewhere Unspecified 05/24/2020 09:3 3:00 AM EDT completed eCW1 ([facility]) COVID-19 dose #1 given elsewhere Unspecified 05/24/2020 09:3 3:00 AM EDT completed eCW1 ([facility]) COVID-19 dose #1 given elsewhere Unspecified 05/24/2020 09:3 3:00 AM EDT completed eCW1 ([facility]) COVID-19 dose #1 given elsewhere Unspecified 05/24/2020 09:3 3:00 AM EDT completed eCW1 ([facility]) COVID-19 dose #1 given elsewhere Unspecified 05/24/2020 09:3 3:00 AM EDT completed eCW1 ([facility]) COVID-19 dose #1 given elsewhere Unspecified 05/24/2020 09:3 3:00 AM EDT completed eCW1 ([facility]) COVID-19 dose #1 given elsewhere Unspecified 05/24/2020 09:3 3:00 AM EDT completed eCW1 ([facility]) COVID-19 dose #1 given elsewhere Unspecified 05/24/2020 09:3 3:00 AM EDT completed eCW1 ([facility]) COVID-19 dose #1 given elsewhere Unspecified 05/24/2020 09:3 3:00 AM EDT completed eCW1 ([facility]) COVID-19 VACCINE Moderna 05/15/2020 12:00:00 AM EST completed [employer] Vaccine Series Complete: NOThis Data was Submitted to [facility] Via [employer]. influenza, recombinant, quadrIvalent,injectable, prese rvative free 01/07/2020 03:18:00 PM EDT completed eCW1 ([facility]) influenza, recombinant, quadrIvalent,injectable, prese rvative free 01/07/2020 03:18:00 PM EDT completed eCW1 ([facility]) influenza, recombinant, quadrIvalent,injectable, prese rvative free 01/07/2020 03:18:00 PM EDT completed eCW1 ([facility]) influenza, recombinant, quadrIvalent,injectable, prese rvative free 01/07/2020 03:18:00 PM EDT completed eCW1 ([facility]) influenza, recombinant, quadrIvalent,injectable, prese rvative free 01/07/2020 03:18:00 PM EDT completed eCW1 ([facility]) influenza, recombinant, quadrIvalent,injectable, prese rvative free 01/07/2020 03:18:00 PM EDT completed eCW1 ([facility]) influenza, recombinant, quadrIvalent,injectable, prese rvative free 01/07/2020 03:18:00 PM EDT completed eCW1 ([facility]) influenza, recombinant, quadrIvalent,injectable, prese rvative free 01/07/2020 03:18:00 PM EDT completed eCW1 ([facility]) influenza, recombinant, quadrIvalent,injectable, prese rvative free 01/07/2020 03:18:00 PM EDT completed eCW1 ([facility]) influenza, recombinant, quadrIvalent,injectable, prese rvative free 01/07/2020 03:18:00 PM EDT completed eCW1 ([facility]) influenza, recombinant, quadrIvalent,injectable, prese rvative free 01/07/2020 03:18:00 PM EDT completed eCW1 ([facility]) influenza, recombinant, quadrIvalent,injectable, prese rvative free 01/07/2020 03:18:00 PM EDT completed eCW1 ([facility]) influenza, recombinant, quadrIvalent,injectable, prese rvative free 01/07/2020 03:18:00 PM EDT completed eCW1 ([facility]) influenza, recombinant, quadrIvalent,injectable, prese rvative free 01/07/2020 03:18:00 PM EDT completed eCW1 ([facility]) influenza, recombinant, quadrIvalent,injectable, prese rvative free 01/07/2020 03:18:00 PM EDT completed eCW1 ([facility]) influenza, recombinant, quadrIvalent,injectable, prese rvative free 01/07/2020 03:18:00 PM EDT completed eCW1 ([facility]) influenza, recombinant, quadrIvalent,injectable, prese rvative free 01/07/2020 03:18:00 PM EDT completed eCW1 ([facility]) influenza, recombinant, quadrIvalent,injectable, prese rvative free 01/07/2020 03:18:00 PM EDT completed eCW1 ([facility]) influenza, recombinant, quadrIvalent,injectable, prese rvative free 01/07/2020 03:18:00 PM EDT completed eCW1 ([facility]) influenza, recombinant, quadrIvalent,injectable, prese rvative free 01/07/2020 03:18:00 PM EDT completed eCW1 ([facility]) influenza, recombinant, quadrIvalent,injectable, prese rvative free 01/07/2020 03:18:00 PM EDT completed eCW1 ([facility]) influenza, recombinant, quadrIvalent,injectable, prese rvative free 01/07/2020 03:18:00 PM EDT completed eCW1 ([facility]) influenza, recombinant, quadrIvalent,injectable, prese rvative free 01/07/2020 03:18:00 PM EDT completed eCW1 ([facility]) influenza, recombinant, quadrIvalent,injectable, prese rvative free 01/07/2020 03:18:00 PM EDT completed eCW1 ([facility]) influenza, recombinant, quadrIvalent,injectable, prese rvative free 01/07/2020 03:18:00 PM EDT completed eCW1 ([facility]) influenza, recombinant, quadrIvalent,injectable, prese rvative free 01/07/2020 03:18:00 PM EDT completed eCW1 ([facility]) influenza, recombinant, quadrIvalent,injectable, prese rvative free 01/07/2020 03:18:00 PM EDT completed eCW1 ([facility]) influenza, recombinant, quadrIvalent,injectable, prese rvative free 01/07/2020 03:18:00 PM EDT completed eCW1 ([facility]) influenza, recombinant, quadrIvalent,injectable, prese rvative free 01/07/2020 03:18:00 PM EDT completed eCW1 ([facility]) influenza, recombinant, quadrIvalent,injectable, prese rvative free 01/07/2020 03:18:00 PM EDT completed eCW1 ([facility]) influenza, recombinant, quadrIvalent,injectable, prese rvative free 01/07/2020 03:18:00 PM EDT completed eCW1 ([facility]) Medications Medication Brand Name Start Date Product [...] AM EDT active Naproxen 500 MG eCW1 ([facility]) Naproxen 500 MG Oral Tablet Naproxen 500 MG 12/29/2020 12:00:00 AM EDT active Naproxen 500 MG eCW1 ([facility]) Naproxen 500 MG Oral Tablet Naproxen 500 MG 12/29/2020 12:00:00 AM EDT active Naproxen 500 MG eCW1 ([facility]) Naproxen 500 MG Oral Tablet Naproxen 500 MG 12/29/2020 12:00:00 AM EDT active eCW1 ([facility]) Naproxen 500 MG Oral Tablet Naproxen 500 MG 12/29/2020 12:00:00 AM EDT active Naproxen 500 MG eCW1 ([facility]) Naproxen 500 MG Oral Tablet Naproxen 500 MG 12/29/2020 12:00:00 AM EDT active Naproxen 500 MG eCW1 ([facility]) Magnesium Hydroxide 80 MG/ML Oral Suspension Milk Of Magnesi a 09/29/2020 12:00:00 AM EDT ORAL active M EDENT ([facility], ) POLYETHYLENE GLYCOL 3350 142 MG/ML Oral Solution [Miralax] M iralax 09/29/2020 12:00:00 AM EDT active M EDENT ([facility], ) Vitamin D3 125 MCG (5000 UT) Vitamin D3 125 MCG (5000 UT) 12:00:00 AM EDT 1.0 {capsule} active Vitamin D3 125 MCG (5000 UT) eCW1 ([facility]) Vitamin D3 125 MCG (5000 UT) Vitamin D3 125 MCG (5000 UT) 12:00:00 AM EDT 1.0 {capsule} active Vitamin D3 125 MCG (5000 UT) eCW1 ([facility]) Vitamin D3 125 MCG (5000 UT) Vitamin D3 125 MCG (5000 UT) 12:00:00 AM EDT 1.0 {capsule} active Vitamin D3 125 MCG (5000 UT) eCW1 ([facility]) Vitamin D3 125 MCG (5000 UT) Vitamin D3 125 MCG (5000 UT) 12:00:00 AM EDT 1.0 {capsule} active Vitamin D3 125 MCG (5000 UT) eCW1 ([facility]) Vitamin D3 125 MCG (5000 UT) Vitamin D3 125 MCG (5000 UT) 12:00:00 AM EDT 1.0 {capsule} active Vitamin D3 125 MCG (5000 UT) eCW1 ([facility]) Vitamin D3 125 MCG (5000 UT) Vitamin D3 125 MCG (5000 UT) 12:00:00 AM EDT 1.0 {capsule} active Vitamin D3 125 MCG (5000 UT) eCW1 ([facility]) Naproxen 375 MG Oral Tablet Naproxen 375 MG 07/20/2020 12:00:00 AM EDT active Naproxen 375 MG eCW1 ([facility]) Naproxen 375 MG Oral Tablet Naproxen 375 MG 07/20/2020 12:00:00 AM EDT active Naproxen 375 MG eCW1 ([facility]) Naproxen 375 MG Oral Tablet Naproxen 375 MG 07/20/2020 12:00:00 AM EDT active Naproxen 375 MG eCW1 ([facility]) Alendronic acid 70 MG Oral Tablet Alendronate Sodium 7 0 MG Alendronate Sodium 70 MG 04/29/2020 12:00:00 AM EST active Alendronate Sodium 70 MG eCW1 ([facility]) Alendronic acid 70 MG Oral Tablet Alendronate Sodium 7 0 MG Alendronate Sodium 70 MG 04/29/2020 12:00:00 AM EST active Alendronate Sodium 70 MG eCW1 ([facility]) Alendronic acid 70 MG Oral Tablet Alendronate Sodium 7 0 MG Alendronate Sodium 70 MG 04/29/2020 12:00:00 AM EST active Alendronate Sodium 70 MG eCW1 ([facility]) Alendronic acid 70 MG Oral Tablet Alendronate Sodium 7 0 MG Alendronate Sodium 70 MG 04/29/2020 12:00:00 AM EST active Alendronate Sodium 70 MG eCW1 ([facility]) Amlodipine 2.5 MG Oral Tablet AmLODIPine Besylate 2.5 MG AmLODIPine Besylate 2.5 MG 04/08/2020 12:00:00 AM EST 1.0 {tablet} activ e AmLODIPine Besylate 2.5 MG eCW1 ([facility]) Amlodipine 2.5 MG Oral Tablet AmLODIPine Besylate 2.5 MG AmLODIPine Besylate 2.5 MG 04/08/2020 12:00:00 AM EST 1.0 {tablet} activ e AmLODIPine Besylate 2.5 MG eCW1 ([facility]) Amlodipine 2.5 MG Oral Tablet AmLODIPine Besylate 2.5 MG AmLODIPine Besylate 2.5 MG 04/08/2020 12:00:00 AM EST 1.0 {tablet} activ e AmLODIPine Besylate 2.5 MG eCW1 ([facility]) Amlodipine 2.5 MG Oral Tablet AmLODIPine Besylate 2.5 MG AmLODIPine Besylate 2.5 MG 04/08/2020 12:00:00 AM EST 1.0 {tablet} activ e AmLODIPine Besylate 2.5 MG eCW1 ([facility]) Amlodipine 2.5 MG Oral Tablet amLODIPine Besylate 2.5 MG amLODIPine Besylate 2.5 MG 04/08/2020 12:00:00 AM EST 1.0 {tablet} activ e amLODIPine Besylate 2.5 MG eCW1 ([facility]) Amlodipine 2.5 MG Oral Tablet AmLODIPine Besylate 2.5 MG AmLODIPine Besylate 2.5 MG 04/08/2020 12:00:00 AM EST 1.0 {tablet} activ e AmLODIPine Besylate 2.5 MG eCW1 ([facility]) Amlodipine 2.5 MG Oral Tablet AmLODIPine Besylate 2.5 MG AmLODIPine Besylate 2.5 MG 04/08/2020 12:00:00 AM EST 1.0 {tablet} activ e AmLODIPine Besylate 2.5 MG eCW1 ([facility]) Amlodipine 2.5 MG Oral Tablet AmLODIPine Besylate 2.5 MG AmLODIPine Besylate 2.5 MG 04/08/2020 12:00:00 AM EST 1.0 {tablet} activ e AmLODIPine Besylate 2.5 MG eCW1 ([facility]) Amlodipine 2.5 MG Oral Tablet AmLODIPine Besylate 2.5 MG AmLODIPine Besylate 2.5 MG 04/08/2020 12:00:00 AM EST 1.0 {tablet} activ e AmLODIPine Besylate 2.5 MG eCW1 ([facility]) Amlodipine 2.5 MG Oral Tablet AmLODIPine Besylate 2.5 MG AmLODIPine Besylate 2.5 MG 04/08/2020 12:00:00 AM EST 1.0 {tablet} activ e AmLODIPine Besylate 2.5 MG eCW1 ([facility]) Amlodipine 2.5 MG Oral Tablet AmLODIPine Besylate 2.5 MG AmLODIPine Besylate 2.5 MG 04/08/2020 12:00:00 AM EST 1.0 {tablet} activ e AmLODIPine Besylate 2.5 MG eCW1 ([facility]) Amlodipine 2.5 MG Oral Tablet AmLODIPine Besylate 2.5 MG AmLODIPine Besylate 2.5 MG 04/08/2020 12:00:00 AM EST 1.0 {tablet} activ e AmLODIPine Besylate 2.5 MG eCW1 ([facility]) Amlodipine 2.5 MG Oral Tablet AmLODIPine Besylate 2.5 MG AmLODIPine Besylate 2.5 MG 04/08/2020 12:00:00 AM EST 1.0 {tablet} activ e AmLODIPine Besylate 2.5 MG eCW1 ([facility]) Amlodipine 2.5 MG Oral Tablet amLODIPine Besylate 2.5 MG amLODIPine Besylate 2.5 MG 04/08/2020 12:00:00 AM EST 1.0 {tablet} activ e amLODIPine Besylate 2.5 MG eCW1 ([facility]) Amlodipine 2.5 MG Oral Tablet AmLODIPine Besylate 2.5 MG AmLODIPine Besylate 2.5 MG 04/08/2020 12:00:00 AM EST 1.0 {tablet} activ e AmLODIPine Besylate 2.5 MG eCW1 ([facility]) Amlodipine 5 MG Oral Tablet AmLODIPine Besylate 5 MG AmLODIP ine Besylate 5 MG 01/25/2020 12:00:00 AM EST 1.0 {tablet} active AmLODIPine Besylate 5 MG eCW1 ([facility]) Amlodipine 5 MG Oral Tablet AmLODIPine Besylate 5 MG AmLODIP ine Besylate 5 MG 01/25/2020 12:00:00 AM EST 1.0 {tablet} active AmLODIPine Besylate 5 MG eCW1 ([facility]) Amlodipine 5 MG Oral Tablet AmLODIPine Besylate 5 MG AmLODIP ine Besylate 5 MG 01/25/2020 12:00:00 AM EST 1.0 {tablet} active AmLODIPine Besylate 5 MG eCW1 ([facility]) Amlodipine 5 MG Oral Tablet AmLODIPine Besylate 5 MG AmLODIP ine Besylate 5 MG 01/25/2020 12:00:00 AM EST 1.0 {tablet} active AmLODIPine Besylate 5 MG eCW1 ([facility]) Amlodipine 5 MG Oral Tablet AmLODIPine Besylate 5 MG AmLODIP ine Besylate 5 MG 01/25/2020 12:00:00 AM EST 1.0 {tablet} active AmLODIPine Besylate 5 MG eCW1 ([facility]) Amlodipine 5 MG Oral Tablet AmLODIPine Besylate 5 MG AmLODIP ine Besylate 5 MG 01/25/2020 12:00:00 AM EST 1.0 {tablet} active AmLODIPine Besylate 5 MG eCW1 ([facility]) Acetaminophen 500 MG Oral Tablet Acetaminophen Extra S trength 500 MG Acetaminophen Extra Strength 500 MG 01/23/2020 12:00:00 AM EST 2.0 {tablets_as_needed} active Acetaminophe n Extra Strength 500 MG eCW1 ([facility]) Acetaminophen 500 MG Oral Tablet Acetaminophen Extra S trength 500 MG Acetaminophen Extra Strength 500 MG 01/23/2020 12:00:00 AM EST 2.0 {tablets_as_needed} active Acetaminophe n Extra Strength 500 MG eCW1 ([facility]) Acetaminophen 500 MG Oral Tablet Acetaminophen Extra S trength 500 MG Acetaminophen Extra Strength 500 MG 01/23/2020 12:00:00 AM EST 2.0 {tablets_as_needed} active Acetaminophe n Extra Strength 500 MG eCW1 ([facility]) Acetaminophen 500 MG Oral Tablet Acetaminophen Extra S trength 500 MG Acetaminophen Extra Strength 500 MG 01/23/2020 12:00:00 AM EST 2.0 {tablets_as_needed} active Acetaminophe n Extra Strength 500 MG eCW1 ([facility]) Acetaminophen 500 MG Oral Tablet Acetaminophen Extra S trength 500 MG Acetaminophen Extra Strength 500 MG 01/23/2020 12:00:00 AM EST 2.0 {tablets_as_needed} active Acetaminophe n Extra Strength 500 MG eCW1 ([facility]) Acetaminophen 500 MG Oral Tablet Acetaminophen Extra S trength 500 MG Acetaminophen Extra Strength 500 MG 01/23/2020 12:00:00 AM EST 2.0 {tablets_as_needed} active Acetaminophe n Extra Strength 500 MG eCW1 ([facility]) Acetaminophen 500 MG Oral Tablet Acetaminophen Extra S trength 500 MG Acetaminophen Extra Strength 500 MG 01/23/2020 12:00:00 AM EST 2.0 {tablets_as_needed} active Acetaminophe n Extra Strength 500 MG eCW1 ([facility]) Acetaminophen 500 MG Oral Tablet Acetaminophen Extra S trength 500 MG Acetaminophen Extra Strength 500 MG 01/23/2020 12:00:00 AM EST 2.0 {tablets_as_needed} active Acetaminophe n Extra Strength 500 MG eCW1 ([facility]) Acetaminophen 500 MG Oral Tablet Acetaminophen Extra S trength 500 MG Acetaminophen Extra Strength 500 MG 01/23/2020 12:00:00 AM EST 2.0 {tablets_as_needed} active Acetaminophe n Extra Strength 500 MG eCW1 ([facility]) Acetaminophen 500 MG Oral Tablet Acetaminophen Extra S trength 500 MG Acetaminophen Extra Strength 500 MG 01/23/2020 12:00:00 AM EST 2.0 {tablets_as_needed} active Acetaminophe n Extra Strength 500 MG eCW1 ([facility]) Acetaminophen 500 MG Oral Tablet Acetaminophen Extra S trength 500 MG Acetaminophen Extra Strength 500 MG 01/23/2020 12:00:00 AM EST 2.0 {tablets_as_needed} active Acetaminophe n Extra Strength 500 MG eCW1 ([facility]) Acetaminophen 500 MG Oral Tablet Acetaminophen Extra S trength 500 MG Acetaminophen Extra Strength 500 MG 01/23/2020 12:00:00 AM EST 2.0 {tablets_as_needed} active Acetaminophe n Extra Strength 500 MG eCW1 ([facility]) Acetaminophen 500 MG Oral Tablet Acetaminophen Extra S trength 500 MG Acetaminophen Extra Strength 500 MG 01/23/2020 12:00:00 AM EST 2.0 {tablets_as_needed} active Acetaminophe n Extra Strength 500 MG eCW1 ([facility]) Acetaminophen 500 MG Oral Tablet Acetaminophen Extra S trength 500 MG Acetaminophen Extra Strength 500 MG 01/23/2020 12:00:00 AM EST 2.0 {tablets_as_needed} active Acetaminophe n Extra Strength 500 MG eCW1 ([facility]) Acetaminophen 500 MG Oral Tablet Acetaminophen Extra S trength 500 MG Acetaminophen Extra Strength 500 MG 01/23/2020 12:00:00 AM EST 2.0 {tablets_as_needed} active Acetaminophe n Extra Strength 500 MG eCW1 ([facility]) Acetaminophen 500 MG Oral Tablet Acetaminophen Extra S trength 500 MG Acetaminophen Extra Strength 500 MG 01/23/2020 12:00:00 AM EST 2.0 {tablets_as_needed} active Acetaminophe n Extra Strength 500 MG eCW1 ([facility]) Acetaminophen 500 MG Oral Tablet Acetaminophen Extra S trength 500 MG Acetaminophen Extra Strength 500 MG 01/23/2020 12:00:00 AM EST 2.0 {tablets_as_needed} active Acetaminophe n Extra Strength 500 MG eCW1 ([facility]) Acetaminophen 500 MG Oral Tablet Acetaminophen Extra S trength 500 MG Acetaminophen Extra Strength 500 MG 01/23/2020 12:00:00 AM EST 2.0 {tablets_as_needed} active Acetaminophe n Extra Strength 500 MG eCW1 ([facility]) Acetaminophen 500 MG Oral Tablet Acetaminophen Extra S trength 500 MG Acetaminophen Extra Strength 500 MG 01/23/2020 12:00:00 AM EST 2.0 {tablets_as_needed} active Acetaminophe n Extra Strength 500 MG eCW1 ([facility]) Acetaminophen 500 MG Oral Tablet Acetaminophen Extra S trength 500 MG Acetaminophen Extra Strength 500 MG 01/23/2020 12:00:00 AM EST 2.0 {tablets_as_needed} active Acetaminophe n Extra Strength 500 MG eCW1 ([facility]) Acetaminophen 500 MG Oral Tablet Acetaminophen Extra S trength 500 MG Acetaminophen Extra Strength 500 MG 01/23/2020 12:00:00 AM EST 2.0 {tablets_as_needed} active Acetaminophe n Extra Strength 500 MG eCW1 ([facility]) Acetaminophen 500 MG Oral Tablet Acetaminophen Extra S trength 500 MG Acetaminophen Extra Strength 500 MG 01/23/2020 12:00:00 AM EST 2.0 {tablets_as_needed} active Acetaminophe n Extra Strength 500 MG eCW1 ([facility]) Insurance Providers Payer name Policy type / Coverage type Policy ID Covered alliance party ID Covered alliance party's relationship to lou Policy Lou Plan Information MEDICARE [id number] [facility] [id number] W70 MEDICARE [id number] MEDICARE [id number] SP [id number] MEDICARE [id number] SP [id number] W70 [facility] MEDICAID [id number] SP [id number] WELLCARE [id number] SP [id number] [employer] [id number] SP [id number] WELLCARE [id number] SP [id number] [place] [id number] SP [id number] MEDICARE C [id number] S [id number] [id number] MEDICAID M [id number] S [id number] SELF PAY ONLY [id number] SP [id number] MEDICARE [id number] SP [id number] [employer] GOLD [id number] SP [id number] MEDICARE [id number] SP [id number] [employer] GOLD [id number] SP [id number] Problems, Conditions, and Diagnoses Code Display Name Description Problem Type Effective Dates Data Source(s) Z60.2 Problems related to living alone Problems relate d to living alone Diagnosis 01/25/2021 12:00:00 AM EST NDOC ([facility] ) Z85.42 Personal history of malignant neoplasm o f other parts of uterus Personal history of malignant neoplasm of other parts of uterus Diagnosis 01/25/2021 12:00:00 AM EST NDOC ([facility]) Z85.43 Personal history of malignant neoplasm o f ovary Personal history of malignant neoplasm of ovary Diagnosis 01/25/2021 12:00:00 AM EST NDOC ([facility]) Z91.81 History of falling History of falling Diagnosis 12:00:00 AM EST NDOC ([facility]) F17.210 Nicotine dependence, cigarettes, uncompl icated Nicotine dependence, cigarettes, uncomplicated Diagnosis 01/25/2021 12:00:00 AM EST NDOC ([facility]) I25.2 Old myocardial infarction Old myocardial infarction Di agnosis 01/25/2021 12:00:00 AM EST NDOC ([facility]) E78.5 Hyperlipidemia, unspecified Hyperlipidemia, unspecifie d Diagnosis 01/25/2021 12:00:00 AM EST NDOC ([facility]) M81.0 Age-related osteoporosis without current pathological fracture Age-related osteoporosis without current pathological fracture Diagnosis 12:00:00 AM EST NDOC ([facility]) E55.9 Vitamin D deficiency, unspecified Vitamin D defi ciency, unspecified Diagnosis 01/25/2021 12:00:00 AM EST NDOC ([facility] ) R13.10 Dysphagia, unspecified Dysphagia, unspecified Diagnosi s 01/25/2021 12:00:00 AM EST NDOC ([facility]) K21.9 Gastro-esophageal reflux disease without esophagitis Gastro-esophageal reflux disease without esophagitis Diagnosis 01/25/2021 12:00:00 AM ES T NDOC ([facility]) M54.50 M54.50 Low back pain, unspecified Diagnosis 12:00:00 AM EST NDOC ([facility]) K57.90 Diverticulosis of intestine, part unspecified, without perforation or abscess without bleeding Diverticulosis of intestine, part unspec ified, without perforation or abscess without bleeding Diagnosis 01/25/2021 12:00:00 AM EST NDOC ([facility]) K92.2 Gastrointestinal hemorrhage, unspecified Gastrointestinal hemorrhage, unspecified Diagnosis 01/25/2021 12:00:00 AM EST NDOC ([facility]) D53.9 Nutritional anemia, unspecified Nutritional anemia, un specified Diagnosis 01/25/2021 12:00:00 AM EST NDOC ([facility]) R29.6 Repeated falls Repeated falls Diagnosis 01/25/2021 12:00: 00 AM EST NDOC ([facility]) I10 Essential (primary) hypertension Essential (primary) h ypertension Diagnosis 01/25/2021 12:00:00 AM EST NDOC ([facility]) I25.10 Atherosclerotic heart diseas e of [place] coronary artery without angina pectoris Atherosclerotic heart disease of [place] coronary artery without angina pectoris Diagnosis 01/25/2021 12:00:00 AM EST NDOC ([facility]) J98.11 Atelectasis Atelectasis Diagnosis 01/25/2021 12:00:00 AM EST NDOC ([facility]) U07.1 U07.1 COVID-19 Diagnosis 01/25/2021 12:00:00 AM ES T NDOC ([facility]) A04.72 Enterocolitis due to Clostridium diffici le, not specified as recurrent Enterocolitis due to Clostridium difficile, not specified as recurrent Diagnosis 01/25/2021 12:00:00 AM EST NDOC ([facility] ) R29.6 [id number] Frequent falls Problem 12/27/2020 12:00:00 A M EDT eCW1 ([facility]) E55.9 Vitamin D deficiency Vitamin D deficiency Problem 07/20/2020 12:00:00 AM EDT eCW1 ([facility]) D75.89 Macrocytosis Macrocytosis Problem 04/08/2020 12:00:00 A M EST eCW1 ([facility]) D75.89 [id number] Macrocytosis without anemia Problem 02/20/20 12:00:00 AM EST eCW1 ([facility]) K21.9 [id number] Gastroesophageal ref lux disease, unspecified whether esophagitis present Problem 01/07/2020 12:00:00 AM EDT eCW1 ([facility]) E78.2 [id number] Mixed hyperlipidemia Problem 01/07/2020 12:0 0:00 AM EDT eCW1 ([facility]) I10 [id number] Essential hypertension Problem 01/07/2020 12 :00:00 AM EDT eCW1 ([facility]) Z86.73 [id number] History of TIA (transient ischemic attack ) Problem 01/07/2020 12:00:00 AM EDT eCW1 ([facility]) F17.210 [id number] Cigarette nicotine dependence without com plication Problem 01/07/2020 12:00:00 AM EDT eCW1 ([facility]) Surgeries/Procedures Procedure Description Date Indications Data Source(s) OFFICE OUTPATIENT VISIT 25 MINUTES 09/29/2020 12:00:00 AM EDT MEDPIERO ([facility], ) ECG ROUTINE ECG W/LEAST 12 LDS W/I&R 01/07/2020 12:00: 00 AM EDT eCW1 ([facility]) Immunization: Flublok Quadrivalent (18 years & older) 0.5mL IM (Influenza) 01/07/2020 12:00:00 AM EDT eCW1 ([facility]) Results ID Date Data Source [id number] 01/20/2021 07:38:00 PM EST [facility] Name Value Range Interpretation Code Description Data Tram rce(s) Supporting Document(s) SARS coronavirus 2 RNA [Presence] in Res piratory specimen by ABY with probe detection POSITIVE [facility] This lab was ordered by [facility] a nd reported by [facility]. ID Date Data Source [id number] 12/27/2020 12:22:00 PM EDT [facility] Name Value Range Interpretation Code Description Data Tram rce(s) Supporting Document(s) SARS coronavirus 2 RNA [Presence] in Res piratory specimen by ABY with probe detection NEGATIVE [facility] This lab was ordered by [facility] a nd reported by [facility]. ID Date Data Source [id number] 03/18/2020 10:06:34 AM EST [facility] Name Value Range Interpretation Code Description Data Tram rce(s) Supporting Document(s) &PDF [facility] IDZVQs4xVaVAHjUa58/JXNkvZLDth7BiUJpmHKt0OHykYZYkZ1QzgVobHHNSSP1CHJLDYr8KJEARLL0k [facility] [place] [file] ICAgICAgICAgICAgICAgICAgICAgICAgICAgICAgICAgICAgICAgICAgICAgICAgICAgICAgICAgICAg ICAgICAgICAgICAgICAgICAgICAgICAgICAgICAgICAgICAgICANCiAgICAgICAgICAgICAgICAgICAg ICAgICAgICAgICAgICAgICAgICAgICAgICAgICAgIC AgICAgICAgICAgICAgICAgICAgICAgICAgICAgICAgICAgICAgICAgICAgICAgICANCiAgICAgICAgIC AgICAgICAgICAgICAgICAgICAgICAgICAgICAgICAgICAgICAgICAgICAgICAgICAgICAgICAgICAgIC AgICAgICAgICAgICAgICAgICAgICAgICAgICAgICAN CiAgICAgICAgICAgICAgICAgICAgICAgICAgICAgICAgICAgICAgICAgICAgICAgICAgICAgICAgICAg ICAgICAgICAgICAgICAgICAgICAgICAgICAgICAgICAgICAgICAgICANCiAgICAgICAgICAgICAgICAg ICAgICAgICAgICAgICAgICAgICAgICAgICAgICAgIC AgICAgICAgICAgICAgICAgICAgICAgICAgICAgICAgICAgICAgICAgICAgICAgICAgICANCiAgICAgIC AgICAgICAgICAgICAgICAgICAgICAgICAgICAgICAgICAgICAgICAgICAgICAgICAgICAgICAgICAgIC AgICAgICAgICAgICAgICAgICAgICAgICAgICAgICAg ICANCiAgICAgICAgICAgICAgICAgICAgICAgICAgICAgICAgICAgICAgICAgICAgICAgICAgICAgICAg ICAgICAgICAgICAgICAgICAgICAgICAgICAgICAgICAgICAgICAgICAgICANCiAgICAgICAgICAgICAg ICAgICAgICAgICAgICAgICAgICAgICAgICAgICAgIC AgICAgICAgICAgICAgICAgICAgICAgICAgICAgICAgICAgICAgICAgICAgICAgICAgICAgICANCiAgIC AgICAgICAgICAgICAgICAgICAgICAgICAgICAgICAgICAgICAgICAgICAgICAgICAgICAgICAgICAgIC AgICAgICAgICAgICAgICAgICAgICAgICAgICAgICAg ICAgICANCiAgICAgICAgICAgICAgICAgICAgICAgICAgICAgICAgICAgICAgICAgICAgICAgICAgICAg ICAgICAgICAgICAgICAgICAgICAgICAgICAgICAgICAgICAgICAgICAgICAgICANCjw/tKSzR8ctpHNy eyD1U8tlQs6AXy5XLR0fw9YmRTQjZHxfaoVoZmlXMh WyZVUuPxoKSly4FVlzFX7DjZJoC5QzZ0XiZArnME9NVAWcGLQlfBTwBNTwYYMmRpE1DYEoCCaiBC7AuT CnNYcaZIRkAXZnGK7FSNFcR068ziGxZU2HAd2YEjFmPS4wzj6NBOplHIQdWwyPVcl7GWldGJ4ZjQIgY7 YcbHDlo2eICjLwG0URCVZ5BGNlUq9ZWTJdIhLnBUMt KWynVD9eTGYzHZPVzKevdeJ5GQ1QKI9imkJlJT6MDnRjIq7lFl5TCmPbQ9DiD6AzPUMpDGFFOFhqDK6I AIAzIIA9HYWePJTaLFNKOdUiA82gIU8FF2Zlq73xMsI9KNTqEzHmCXnzUY27sIxfazSdtDUokDfwRA7X Cj4+DQplbmRvYmoNCnhyZWYNCjAgMjANCjAwMDAwMD MvFMMjSbI3FrJbUz1SSTPeXEQvCMGpTgFxPNCiXBMhGFltADEnHFY3ZkahWULnVPYvRB0TBjUsQJFfIW ojCVmjHBUxPCXjrn8AFNIaRUZtNUI2SXFxQPFcQWRzHJejKPYsDEClVTD9GHBjMZIpSU1HZaRwDMSnCR O5MBFcFVThQUHgqt4WHBHzQKCbXeE2CfVxVMPeZMHh YAczNDKbMMHiXnZ5LJPsPEFnVV7HToGbIIEtVXU4VRmgWMDpUASsbr1UARCnHYDiMNacNwWiLAGtUILv UWszLUGdVLN9ZRQ4OZGiCXXyWV0JLdTnLMUgLXMfXILlQLVlEOZrja1YFEWvAEDqJrM2TwWwOTEsYWWy QTjxOFNvKUB5LAK2DHHnMGGbYN3ABuRdHSLxRLM7Xj spKXXoYXGsuz1CZPCvVIDkVjGyTDToEUCtSUJhLBicIDZsUHQ6QvF2DGPaYXYmTR4SXsGlIVOxVVD9Ec kgEBHdOFGaii0MRIMkRXCoPyRbSiBsSBAeZRMpMUp2rtUhpERmFPc4VL5SX1ArdtKuLgJFRy3Wk675UE J5KWOzNc3KU7ibLu8rZKIdFGOCSx7TLLy4OWYrPxgu XOCiA8WuBBDrHZGuVWLlGyB0XLzeSkKkUCs+TXmxKtRmM9AbTGPcAlQ2DjEzBFAbCIE2KsJkNCMuFMUk Fl4nOVMOLe3+RLxgwQXflDqiUJWGPyU8JTS1FOynYURAHr0H ID Date Data Source FERRITIN 02/02/2020 12:00:00 AM EST eCW1 ([facility]) Name Value Range Interpretation Code Description Data Tram rce(s) Supporting Document(s) 130 2-252 FERRITIN eCW1 ([facility]) ID Date Data Source MAGNESIUM LEVEL 02/02/2020 12:00:00 AM EST eCW1 ([facility]) Name Value Range Interpretation Code Description Data Tram rce(s) Supporting Document(s) 2.1 1.8-2.4 MAGNESIUM LEVEL eCW1 ([facility]) ID Date Data Source IRON (FE) 02/02/2020 12:00:00 AM EST eCW1 ([facility]) Name Value Range Interpretation Code Description Data Tram rce(s) Supporting Document(s) 112 50-170 IRON (FE) eCW1 ([facility]) ID Date Data Source Comprehensive Metabolic Profile (CMP) 02/02/2020 12:00:00 AM EST eCW1 ([facility]) Name Value Range Interpretation Code Description Data Tram rce(s) Supporting Document(s) 90 70-100 GLUCOSE, FASTING eCW1 ([facility]) 137 136-145 SODIUM LEVEL eCW1 ([facility]) 3 7-18 BLOOD UREA NITROGEN eCW1 ([facility]) 0.58 0.55-1.30 CREATININE FOR GFR eCW1 ([facility]) > 60.0 >39 GLOMERULAR FILTRATION RATE eCW 1 ([facility]) 4.2 3.5-5.1 POTASSIUM SERUM eCW1 ([facility]) 9.2 8.8-10.2 CALCIUM LEVEL eCW1 ([facility]) 25 21-32 CARBON DIOXIDE LEVEL eCW1 [facility] 104 98-107 CHLORIDE LEVEL eCW1 ([facility]) 26 7-37 AST/SGOT eCW1 ([facility]) 0.3 0.2-1.0 BILIRUBIN,TOTAL eCW1 ([facility]) 6.5 6.4-8.2 TOTAL PROTEIN eCW1 ([facility]) 2.8 3.2-5.2 ALBUMIN eCW1 ([facility]) 23 12-78 ALT/SGPT eCW1 ([facility]) 115 45-117 ALKALINE PHOSPHATASE eCW1 ([facility]) 0.8 1.2-2.2 ALBUMIN/GLOBULIN RATIO eCW1 ([facility]) ID Date Data Source CBC with Differential 02/02/2020 12:00:00 AM EST eCW1 ([facility]) Name Value Range Interpretation Code Description Data Tram rce(s) Supporting Document(s) 4.09 4.00-5.40 RED BLOOD COUNT eCW1 ([facility]) 7.5 4.0-10.0 WHITE BLOOD COUNT eCW1 ([facility]) 14.5 12.0-15.5 HEMOGLOBIN eCW1 ([facility]) 107.6 80.0-96.0 MEAN CORPUSCULAR VOLUME e CW1 ([facility]) 33.0 32.0-36.5 MEAN CORPUSCULAR HGB CONC eCW1 ([facility]) 35.5 27.0-33.0 MEAN CORPUSCULAR HEMOGLOB IN eCW1 ([facility]) 44.0 36.0-47.0 HEMATOCRIT eCW1 ([facility]) 44.0 36.0-66.0 NEUTROPHILS % eCW1 ([facility]) 339 150-450 PLATELET COUNT, AUTOMATED eCW1 ([facility]) 13.2 11.5-14.5 RED CELL DISTRIBUTION WID TH eCW1 ([facility]) 44.6 24.0-44.0 LYMPH % eCW1 ([facility]) 1.6 0.0-3.0 EOS % eCW1 ([facility]) 3.3 1.5-8.5 NEUTROPHILS # eCW1 ([facility]) 8.4 0.0-5.0 MONO % eCW1 ([facility]) 1.1 0.0-1.0 BASO % eCW1 ([facility]) 3.3 1.5-5.0 LYMPH # eCW1 ([facility]) 0.1 0.0-0.2 BASO # eCW1 ([facility]) 0.6 0.0-0.8 MONO # eCW1 ([facility]) 0.1 0.0-0.5 EOS # eCW1 ([facility]) ID Date Data Source FREE T4 & TSH PANEL 01/08/2020 04:13:07 AM EDT eCW1 ([facility]) Name Value Range Interpretation Code Description Data Tram rce(s) Supporting Document(s) 1.32 eCW1 ([facility]) 0.859 eCW1 ([facility]) Procedure Social History Code Duration Value Status Description Data Source(s ) Smoking 12/27/2020 12:00:00 AM EDT Current Smoker completed Curre nt Smoker eCW1 ([facility]) Smoking 12/27/2020 12:00:00 AM EDT Current Smoker completed Curre nt Smoker eCW1 ([facility]) Smoking 12/27/2020 12:00:00 AM EDT Current Smoker completed Curre nt Smoker eCW1 ([facility]) Smoking 12/27/2020 12:00:00 AM EDT Current Smoker completed Curre nt Smoker eCW1 ([facility]) Smoking 12/27/2020 12:00:00 AM EDT Current Smoker completed Curre nt Smoker eCW1 ([facility]) Smoking 12/27/2020 12:00:00 AM EDT Current Smoker completed Curre nt Smoker eCW1 ([facility]) Smoking 12/27/2020 12:00:00 AM EDT Current Smoker completed Curre nt Smoker eCW1 ([facility]) Smoking 11/08/2020 12:00:00 AM EDT Current Smoker completed Curre nt Smoker eCW1 ([facility]) Smoking 08/26/2020 12:00:00 AM EDT Current Smoker completed Curre nt Smoker eCW1 ([facility]) Smoking 08/26/2020 12:00:00 AM EDT Current Smoker completed Curre nt Smoker eCW1 ([facility]) Smoking 07/20/2020 12:00:00 AM EDT Current Smoker completed Curre nt Smoker eCW1 ([facility]) Smoking 07/20/2020 12:00:00 AM EDT Current Smoker completed Curre nt Smoker eCW1 ([facility]) Smoking 07/20/2020 12:00:00 AM EDT Current Smoker completed Curre nt Smoker eCW1 ([facility]) Smoking 07/08/2020 12:00:00 AM EDT Current Smoker completed Curre nt Smoker eCW1 ([facility]) Smoking 07/08/2020 12:00:00 AM EDT Current Smoker completed Curre nt Smoker eCW1 ([facility]) Smoking 04/08/2020 12:00:00 AM EST Current Smoker completed Curre nt Smoker eCW1 ([facility]) Smoking 04/08/2020 12:00:00 AM EST Current Smoker completed Curre nt Smoker eCW1 ([facility]) Smoking 04/08/2020 12:00:00 AM EST Current Smoker completed Curre nt Smoker eCW1 ([facility]) Smoking 04/08/2020 12:00:00 AM EST Current Smoker completed Curre nt Smoker eCW1 ([facility]) Smoking 04/08/2020 12:00:00 AM EST Current Smoker completed Curre nt Smoker eCW1 ([facility]) Smoking 04/08/2020 12:00:00 AM EST Current Smoker completed Curre nt Smoker eCW1 ([facility]) Smoking 04/08/2020 12:00:00 AM EST Current Smoker completed Curre nt Smoker eCW1 ([facility]) Smoking 04/08/2020 12:00:00 AM EST Current Smoker completed Curre nt Smoker eCW1 ([facility]) Smoking 02/20/2020 12:00:00 AM EST Current Smoker completed Curre nt Smoker eCW1 ([facility]) Smoking 02/20/2020 12:00:00 AM EST Current Smoker completed Curre nt Smoker eCW1 ([facility]) Smoking 02/20/2020 12:00:00 AM EST Current Smoker completed Curre nt Smoker eCW1 ([facility]) Smoking 02/02/2020 12:00:00 AM EST Current Smoker completed Curre nt Smoker eCW1 ([facility]) Smoking 01/07/2020 12:00:00 AM EDT Current Smoker completed Curre nt Smoker eCW1 ([facility]) Smoking 01/07/2020 12:00:00 AM EDT Current Smoker completed Curre nt Smoker eCW1 ([facility]) Smoking 01/07/2020 12:00:00 AM EDT Current Smoker completed Curre nt Smoker eCW1 ([facility]) Smoking 01/07/2020 12:00:00 AM EDT Current Smoker completed Curre nt Smoker eCW1 ([facility]) Vital Signs ID Date Data Source UNK Name Value Range Interpretation Code Description Data Source(s) Body weight 134 [lb_av] 134 [lb_av] eCW1 ([facility]) Body height 65 [in_i] 65 [in_i] eCW1 ([facility]) Body mass index (BMI) [Ratio] 22.30 kg/m2 22.30 kg/m2 eCW1 ([facility]) Heart rate 98 /min 98 /min eCW1 ([facility]) Respiratory rate 18 /min 18 /min eCW1 ([facility]) Body temperature 97.1 [degF] 97.1 [degF] eCW1 ( [facility]) Systolic blood pressure 100 mm[Hg] 100 mm[Hg] e CW1 ([facility]) Diastolic blood pressure 58 mm[Hg] 58 mm[Hg] eCW1 ([facility]) Systolic blood pressure 134 mm[Hg] 134 mm[Hg] M EDENT ([facility], ) Diastolic blood pressure 68 mm[Hg] 68 mm[Hg] MEDENT ([facility], ) Body height 64 [in_i] 64 [in_i] [facility] ([facility], ) 5'4" Body weight 142.00 [lb_av] 142.00 [lb_av] MEDEN T ([facility], ) Body mass index (BMI) [Ratio] 24.4 kg/m2 24.4 k g/m2 [facility] ([facility], ) [place] body weight 120 [lb_av] 120 [lb_av] MEDEN T ([facility], ) Body weight 64.411 kg 64.411 kg [facility] ([facility], ) Body surface area Derived from formula 1.69 m2 1.69 m2 [facility] ([facility], ) Body weight 143 [lb_av] 143 [lb_av] eCW1 ([facility]) Body height 65 [in_i] 65 [in_i] eCW1 ([facility]) Body mass index (BMI) [Ratio] 23.79 kg/m2 23.79 kg/m2 eCW1 ([facility]) Heart rate 101 /min 101 /min eCW1 ([facility]) Respiratory rate 18 /min 18 /min eCW1 ([facility]) Body temperature 96.8 [degF] 96.8 [degF] eCW1 ( [facility]) Systolic blood pressure 98 mm[Hg] 98 mm[Hg] e CW1 ([facility]) Diastolic blood pressure 60 mm[Hg] 60 mm[Hg] eCW1 ([facility]) Body weight 140 [lb_av] 140 [lb_av] eCW1 ([facility]) Body height 65 [in_i] 65 [in_i] eCW1 ([facility]) Body mass index (BMI) [Ratio] 23.29 kg/m2 23.29 kg/m2 eCW1 ([facility]) Heart rate 93 /min 93 /min eCW1 ([facility]) Respiratory rate 18 /min 18 /min eCW1 ([facility]) Body temperature 97.4 [degF] 97.4 [degF] eCW1 ( [facility]) Systolic blood pressure 122 mm[Hg] 122 mm[Hg] e CW1 ([facility]) Diastolic blood pressure 60 mm[Hg] 60 mm[Hg] eCW1 ([facility]) Body weight 140 [lb_av] 140 [lb_av] eCW1 ([facility]) Body height 65 [in_i] 65 [in_i] eCW1 ([facility]) Body mass index (BMI) [Ratio] 23.29 kg/m2 23.29 kg/m2 eCW1 ([facility]) Heart rate 92 /min 92 /min eCW1 ([facility]) Respiratory rate 18 /min 18 /min eCW1 ([facility]) Body temperature 98.1 [degF] 98.1 [degF] eCW1 ( [facility]) Systolic blood pressure 138 mm[Hg] 138 mm[Hg] e CW1 ([facility]) Diastolic blood pressure 78 mm[Hg] 78 mm[Hg] eCW1 ([facility]) Heart rate 92 /min 92 /min eCW1 ([facility]) Body temperature 96.5 [degF] 96.5 [degF] eCW1 ( [facility]) Systolic blood pressure 116 mm[Hg] 116 mm[Hg] e CW1 ([facility]) Diastolic blood pressure 60 mm[Hg] 60 mm[Hg] eCW1 ([facility]) Respiratory rate 18 /min 18 /min eCW1 ([facility]) Body weight 134 [lb_av] 134 [lb_av] eCW1 ([facility]) Body height 65 [in_i] 65 [in_i] eCW1 ([facility]) Body mass index (BMI) [Ratio] 22.30 kg/m2 22.30 kg/m2 eCW1 ([facility]) Body weight 134 [lb_av] 134 [lb_av] eCW1 ([facility]) Heart rate 101 /min 101 /min eCW1 ([facility]) Respiratory rate 18 /min 18 /min eCW1 ([facility]) Body temperature 97.3 [degF] 97.3 [degF] eCW1 ( [facility]) Body height 65 [in_i] 65 [in_i] eCW1 ([facility]) Diastolic blood pressure 60 mm[Hg] 60 mm[Hg] eCW1 ([facility]) Systolic blood pressure 120 mm[Hg] 120 mm[Hg] e CW1 ([facility]) Body mass index (BMI) [Ratio] 22.30 kg/m2 22.30 kg/m2 eCW1 ([facility]) Body weight 135.4 [lb_av] 135.4 [lb_av] eCW1 ([facility]) Body height 65 [in_i] 65 [in_i] eCW1 ([facility]) Body mass index (BMI) [Ratio] 22.53 kg/m2 22.53 kg/m2 eCW1 ([facility]) Heart rate 93 /min 93 /min eCW1 ([facility]) Respiratory rate 18 /min 18 /min eCW1 ([facility]) Body temperature 98.2 [degF] 98.2 [degF] eCW1 ( [facility]) Systolic blood pressure 122 mm[Hg] 122 mm[Hg] e CW1 ([facility]) Diastolic blood pressure 62 mm[Hg] 62 mm[Hg] eCW1 ([facility]) Body weight 135 [lb_av] 135 [lb_av] eCW1 ([facility]) Body height 65 [in_i] 65 [in_i] eCW1 ([facility]) Body mass index (BMI) [Ratio] 22.46 kg/m2 22.46 kg/m2 eCW1 ([facility]) Heart rate 101 /min 101 /min eCW1 ([facility]) Respiratory rate 20 /min 20 /min eCW1 ([facility]) Body temperature 96 [degF] 96 [degF] eCW1 ([facility]) Systolic blood pressure 120 mm[Hg] 120 mm[Hg] e CW1 ([facility]) Diastolic blood pressure 62 mm[Hg] 62 mm[Hg] eCW1 ([facility]) Patient Treatment Plan of Care Planned Activity Planned Date Details Description Data Source (s) Vitamin D3 125 MCG (5000 UT) 07/22/2020 12:00:00 AM EDT eCW1 ([facility]) Vitamin D3 125 MCG (5000 UT) 07/22/2020 12:00:00 AM EDT eCW1 ([facility]) Naproxen 375 MG Oral Tablet 07/20/2020 12:00:00 AM EDT eCW1 ([facility]) Naproxen 375 MG Oral Tablet 07/20/2020 12:00:00 AM EDT eCW1 ([facility]) Naproxen 375 MG Oral Tablet 07/20/2020 12:00:00 AM EDT eCW1 ([facility]) Alendronic acid 70 MG Oral Tablet 04/29/2020 12:00:00 AM EST eCW1 ([facility]) Alendronic acid 70 MG Oral Tablet 04/29/2020 12:00:00 AM EST eCW1 ([facility]) Alendronic acid 70 MG Oral Tablet 04/29/2020 12:00:00 AM EST eCW1 ([facility]) Alendronic acid 70 MG Oral Tablet 04/29/2020 12:00:00 AM EST eCW1 ([facility]) Amlodipine 2.5 MG Oral Tablet 04/08/2020 12:00:00 AM EST eCW1 ([facility]) Amlodipine 2.5 MG Oral Tablet 04/08/2020 12:00:00 AM EST eCW1 ([facility]) Amlodipine 2.5 MG Oral Tablet 04/08/2020 12:00:00 AM EST eCW1 ([facility]) Amlodipine 2.5 MG Oral Tablet 04/08/2020 12:00:00 AM EST eCW1 ([facility]) Amlodipine 2.5 MG Oral Tablet 04/08/2020 12:00:00 AM EST eCW1 ([facility]) Amlodipine 2.5 MG Oral Tablet 04/08/2020 12:00:00 AM EST eCW1 ([facility]) Amlodipine 2.5 MG Oral Tablet 04/08/2020 12:00:00 AM EST eCW1 ([facility]) Amlodipine 2.5 MG Oral Tablet 04/08/2020 12:00:00 AM EST eCW1 ([facility]) Amlodipine 2.5 MG Oral Tablet 04/08/2020 12:00:00 AM EST eCW1 ([facility]) Amlodipine 2.5 MG Oral Tablet 04/08/2020 12:00:00 AM EST eCW1 ([facility]) Amlodipine 5 MG Oral Tablet 01/25/2020 12:00:00 AM EST eCW1 ([facility]) Acetaminophen 500 MG Oral Tablet 01/23/2020 12:00:00 AM EST eCW1 ([facility]) Acetaminophen 500 MG Oral Tablet 01/23/2020 12:00:00 AM EST eCW1 ([facility]) Acetaminophen 500 MG Oral Tablet 01/23/2020 12:00:00 AM EST eCW1 ([facility])
[2021-02-21 19:37] LABS: ALT/SGPT 39 U/L (12-78); BILIRUBIN,DIRECT 0.4 MG/DL (0.0-0.2); BILIRUBIN,TOTAL 1.3 MG/DL (0.2-1.0); BLOOD UREA NITROGEN 4 MG/DL (7-18); CALCIUM LEVEL 8.5 MG/DL (8.8-10.2); CARBON DIOXIDE LEVEL 26 MEQ/L (21-32); CHLORIDE LEVEL 102 MEQ/L (98-107); CREATININE FOR GFR 0.72 MG/DL (0.55-1.30); GLOMERULAR FILTRATION RATE > 60.0 (>39); GLUCOSE, FASTING 118 MG/DL (70-100); LIPASE 80 U/L (73-393); POTASSIUM SERUM 4.3 MEQ/L (3.5-5.1); SODIUM LEVEL 138 MEQ/L (136-145); TOTAL PROTEIN 6.3 GM/DL (6.4-8.2)
[2021-02-21] MEDS ORDERED: ISOVUE-370 76% 100ML VIAL As Ordered ONE (19:43)
--- NOTE | 2021-02-21 22:33 | REPVR ---
PROCEDURE INFORMATION: Exam: CT Abdomen And Pelvis With Contrast Exam date and time: 02/21/2021 8:33 PM Age: 75 years old Clinical indication: Abdominal pain; Localized; Left; Additional info: Left abd pain/all po coming up/? Obstruction TECHNIQUE: Imaging protocol: Computed tomography of the abdomen and pelvis with contrast. Radiation optimization: All CT scans at this facility use at least one of these dose optimization techniques: automated exposure control; mA and/or kV adjustment per patient size (includes targeted exams where dose is matched to clinical indication); or iterative reconstruction. Contrast material: ISOVUE 370; Contrast volume: 100 ml; Contrast route: INTRAVENOUS (IV); COMPARISON: 1. CT ABD/PEL W/IV ORAL CONTRAS 2021-01-20 20:[address] ABD/PEL W/IV CONTRAST ONLY 2020-01-20 02:33 FINDINGS: Lungs: Dependent subsegmental pulmonary atelectasis. Mediastinal space: Distal esophageal, and gastric and duodenal wall thickening and hyperenhancement, correlate for gastritis and duodenitis. Diaphragm: Small gastroesophageal sliding type hiatal hernia. Midline abdominal wall eventration. Liver: Hepatic steatosis. Gallbladder and bile ducts: Cholecystectomy. Pancreas: Normal. No ductal dilation. Spleen: Normal. No splenomegaly. Adrenal glands: Normal. No mass. Kidneys and ureters: Mild renal lobulations. Stomach and bowel: Diverticulosis coli without acute inflammatory changes. Right lower abdominal bowel anastomosis. Moderate diverticulosis coli. Appendix: Appendectomy. Intraperitoneal space: Unremarkable. No free air. No significant fluid collection. Vasculature: Mild to moderate aortic and iliac artery atherosclerotic calcification. Moderate renal artery origin stenosis. Moderate right common iliac artery stenosis. Moderate severe distal left common iliac artery stenosis. Lymph nodes: Unremarkable. No enlarged lymph nodes. Urinary bladder: Unremarkable as visualized. Reproductive: Hysterectomy. Bones/joints: Moderate hip degenerative joint disease. Chronic T12 moderate compression fracture. Soft tissues: Unremarkable. IMPRESSION: 1. Small gastroesophageal sliding type hiatal hernia. Distal esophageal, and gastric and duodenal wall thickening and hyperenhancement, correlate for gastritis and duodenitis. 2. Moderate diverticulosis coli. 3. Moderate right common iliac artery stenosis. Moderate severe distal left common iliac artery stenosis. Electronically signed by: Delta Antonio On 02/21/2021 22:32:51 PM
[2021-02-21] MEDS ORDERED: PANTOPRAZOLE 40MG VIAL (C9113 PER 1) IV ONE (22:45)
[2021-02-22] MEDS ORDERED: MOM 30ML SUSPENSION UDC PO PRN (00:25)
[2021-02-22] MEDS ORDERED: MAALOX 30 ML SUSP *UDC PO PRN (00:25)
[2021-02-22] MEDS ORDERED: ACETAMINOPHEN TAB 650MG DOSE (2X325MG) PO PRN (00:25)
--- OUTSIDE RECORDS SUMMARY | 2021-02-22 00:35 | CCD ---
Author [facility] Organization 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 Battery Name Role Phone CLEOPATRA REED MD Unavailable [...] Unavailable Unavailable REINSHARON, CLEOPATRA FARR Unavailable Unavailable REINDLCLEOPATRA MD Unavailable Unavailable REINCLEOPATRA KEARNEY MD Unavailable Unavailable REINCLEOPATRA KEARNEY MD Unavailable Unavailable DEREK, CLEOPATRA FARR Unavailable Unavailable REINSHARON, CLEOPATRA FARR Unavailable Unavailable REINCLEOPATRA KEARNEY MD Unavailable Unavailable REINSHARON, CLEOPATRA FARR Unavailable Unavailable REINSHARON, CLEOPATRA FARR Unavailable Unavailable DEREK, CLEOPATRA FARR Unavailable Unavailable DEREK, CLEOPATRA FARR Unavailable Unavailable DEREK, CLEOPATRA FARR Unavailable Unavailable CLEOPATRA REED MD Unavailable Unavailable CLEOPATRA REED MD Unavailable Unavailable DEREK, CLEOPATRA FARR Unavailable Unavailable DEREK, CLEOPATRA FARR Unavailable Unavailable CLEOPATRA REED MD Unavailable Unavailable DEREK, CLEOPATRA FARR Unavailable Unavailable REINCLEOPATRA KEARNEY MD Unavailable Unavailable REINCLEOPATRA KEARNEY MD Unavailable Unavailable REINCLEOPATRA KEARNEY MD Unavailable Unavailable REINDL, CLEOPATRA MD Unavailable Unavailable Skipton, E Robyn MD [...] is protected by Article 27-F of the [facility] Public Health law. If you continue you may have access to information: Regarding HIV / AIDS; Provided by facilities licensed or operated by the [facility] Office of Mental Health; or Provided by the [facility] Office for People With Developmental Disabilities. If such information is present, then the following [facility] mandated warning applies: This information has [...] law may result in a fine or nursing home sentence or both. A general authorization for the release of medical or other information is NOT sufficient authorization for further disc losure. Allergies and Adverse Reactions Type Description Substance Reaction Status Data Source(s ) Unknown bee pollen Bee pollen Reaction Unknown NDOC ([facility]) Unknown atorvastatin atorvastatin Reaction Unknown NDO C ([facility]) Unknown alendronate sodium alendronate sodium Reaction Unknown NDOC ([facility]) Unknown oxycodone Oxycodone Reaction Unknown NDOC ([facility]) Unknown codeine Codeine Reaction Unknown NDOC ([facility]) Unknown morphine Morphine Reaction Unknown NDOC ([facility]) Encounters Encounter Providers Location Date Indications Data Source(s ) [place] [address] [facility] [address] 02/16/2021 12:00:00 AM EST [facility] [place] [address] [facility] [address] 02/11/2021 12:00:00 AM EST [facility] [place] [address] [facility] [address] 01/28/2021 12:00:00 AM EST [facility]) O Attender: Robyn Owen MD 01/25/2021 12:00:00 A M EST NDOC ([facility]) Patient admitted. [place] [address] [facility] [address] 01/25/2021 12:00:00 AM EST [facility] [place] [address] [facility] [address] 01/20/2021 12:00:00 AM EST [facility] [place] [address] [facility] [address] 01/12/2021 12:00:00 AM EDT [facility]) [place] [address] [facility] [address] 12/30/2020 12:00:00 AM EDT [facility]) [place] [address] [facility] [place] [address] 12/27/2020 12:00:00 AM EDT eCW1 ([facility]) [place] [address] [facility] [address] 12/09/2020 12:00:00 AM EDT eCW1 ([facility]) Outpatient Attender: CLEOPATRA Goldberg/Arnoldo/Igor/Rene kearney 09/29/2020 03:00:00 PM EDT MEDENT ([facility]) [place] [address] [facility] [address] 08/27/2020 12:00:00 AM EDT eCW1 ([facility]) [place] [address] [facility] [address] 08/26/2020 12:00:00 AM EDT eCW1 ([facility]) [place] [address] [facility] [address] 07/27/2020 12:00:00 AM EDT eCW1 ([facility]) [place] [address] [facility] [address] 07/22/2020 12:00:00 AM EDT eCW1 ([facility]) [place] [address] [facility] [address] 07/20/2020 12:00:00 AM EDT eCW1 ([facility]) [place] [address] [facility] [address] 07/19/2020 12:00:00 AM EDT eCW1 ([facility]) [place] [address] [facility] [address] 07/08/2020 12:00:00 AM EDT eCW1 ([facility]) [place] [address] [facility] [address] 06/24/2020 12:00:00 AM EDT eCW1 ([facility]) [place] [address] [facility] [address] 06/07/2020 12:00:00 AM EDT eCW1 ([facility]) [place] [address] [facility] [address] 05/20/2020 12:00:00 AM EST eCW1 ([facility]) [place] [address] [facility] [address] 04/29/2020 12:00:00 AM EST eCW1 ([facility]) [place] [address] [facility] [address] 04/21/2020 12:00:00 AM EST eCW1 ([facility]) [place] [address] [facility] [address] 04/21/2020 12:00:00 AM EST eCW1 ([facility]) [place] [address] [facility] [address] 04/13/2020 12:00:00 AM EST eCW1 ([facility]) [place] [address] [facility] [address] 04/08/2020 12:00:00 AM EST eCW1 ([facility]) [place] [address] [facility] [address] 03/31/2020 12:00:00 AM EST [facility] Outpatient CHRISTIANO 03/18/2020 10:16:27 AM EST [facility] Outpatient Referrer: Allyson GAINES 06/2020 10:29:02 AM EST [facility] Unknown [address] [facility] [address] 03/10/2020 12:00:00 AM EST eCW1 ([facility]) Outpatient [address] [facility] [place] [address] 02/20/2020 12:00:00 AM EST eCW1 [facility] Outpatient Referrer: Allyson MCMULLEN 03/2019 12:00:00 AM EST [facility] Outpatient [address] [facility] [address] 02/02/2020 12:00:00 AM EST eCW1 ([facility]) [place] [address] [facility] [address] 01/26/2020 12:00:00 AM EST eCW1 ([facility]) [place] [address] [facility] [address] 01/25/2020 12:00:00 AM EST eCW1 ([facility]) [place] [address] [facility] [address] 01/08/2020 12:00:00 AM EDT eCW1 ([facility]) [place] [address] [facility] [address] 01/07/2020 12:00:00 AM EDT eCW1 ([facility]) Immunizations Vaccine Date Status Description Data Source(s) COVID-19 dose #2 given elsewhere Unspecified 06/15/2020 09:3 3:00 AM EDT completed eCW1 ([facility]) COVID-19 dose #2 given elsewhere Unspecified 06/15/2020 09:3 3:00 AM EDT completed eCW1 ([facility]) COVID-19 dose #2 given elsewhere Unspecified 06/15/2020 09:3 3:00 AM EDT completed eCW1 ([facility]) COVID-19 dose #2 given elsewhere Unspecified 06/15/2020 09:3 3:00 AM EDT completed eCW1 ([facility]) COVID-19 dose #2 given elsewhere Unspecified 06/15/2020 09:3 3:00 AM EDT completed eCW1 ([facility]) COVID-19 dose #2 given elsewhere Unspecified 06/15/2020 09:3 3:00 AM EDT completed eCW1 ([facility]) COVID-19 dose #2 given elsewhere Unspecified 06/15/2020 09:3 3:00 AM EDT completed eCW1 ([facility]) COVID-19 dose #2 given elsewhere Unspecified 06/15/2020 09:3 3:00 AM EDT completed eCW1 ([facility]) COVID-19 dose #2 given elsewhere Unspecified 06/15/2020 09:3 3:00 AM EDT completed eCW1 ([facility]) COVID-19 dose #2 given elsewhere Unspecified 06/15/2020 09:3 3:00 AM EDT completed eCW1 ([facility]) COVID-19 dose #2 given elsewhere Unspecified 06/15/2020 09:3 3:00 AM EDT completed eCW1 ([facility]) COVID-19 dose #2 given elsewhere Unspecified 06/15/2020 09:3 3:00 AM EDT completed eCW1 ([facility]) COVID-19 dose #2 given elsewhere Unspecified 06/15/2020 09:3 3:00 AM EDT completed eCW1 ([facility]) COVID-19 dose #2 given elsewhere Unspecified 06/15/2020 09:3 3:00 AM EDT completed eCW1 ([facility]) COVID-19 dose #2 given elsewhere Unspecified 06/15/2020 09:3 3:00 AM EDT completed eCW1 ([facility]) COVID-19 dose #2 given elsewhere Unspecified 06/15/2020 09:3 3:00 AM EDT completed eCW1 ([facility]) COVID-19 VACCINE Moderna 06/12/2020 12:00:00 AM EDT completed [employer] Vaccine Series Complete: YESThis Data wa s Submitted to [facility] Via [employer]. COVID-19 dose #1 given elsewhere Unspecified 05/24/2020 09:3 3:00 AM EDT completed eCW1 ([facility]) COVID-19 dose #1 given elsewhere Unspecified 05/24/2020 09:3 3:00 AM EDT completed eCW1 ([facility]) COVID-19 dose #1 given elsewhere Unspecified 05/24/2020 09:3 3:00 AM EDT completed eCW1 ([facility]) COVID-19 dose #1 given elsewhere Unspecified 05/24/2020 09:3 3:00 AM EDT completed eCW1 ([facility]) COVID-19 dose #1 given elsewhere Unspecified 05/24/2020 09:3 3:00 AM EDT completed eCW1 ([facility]) COVID-19 dose #1 given elsewhere Unspecified 05/24/2020 09:3 3:00 AM EDT completed eCW1 ([facility]) COVID-19 dose #1 given elsewhere Unspecified 05/24/2020 09:3 3:00 AM EDT completed eCW1 ([facility]) COVID-19 dose #1 given elsewhere Unspecified 05/24/2020 09:3 3:00 AM EDT completed eCW1 ([facility]) COVID-19 dose #1 given elsewhere Unspecified 05/24/2020 09:3 3:00 AM EDT completed eCW1 ([facility]) COVID-19 dose #1 given elsewhere Unspecified 05/24/2020 09:3 3:00 AM EDT completed eCW1 ([facility]) COVID-19 dose #1 given elsewhere Unspecified 05/24/2020 09:3 3:00 AM EDT completed eCW1 ([facility]) COVID-19 dose #1 given elsewhere Unspecified 05/24/2020 09:3 3:00 AM EDT completed eCW1 ([facility]) COVID-19 dose #1 given elsewhere Unspecified 05/24/2020 09:3 3:00 AM EDT completed eCW1 ([facility]) COVID-19 dose #1 given elsewhere Unspecified 05/24/2020 09:3 3:00 AM EDT completed eCW1 ([facility]) COVID-19 dose #1 given elsewhere Unspecified 05/24/2020 09:3 3:00 AM EDT completed eCW1 ([facility]) COVID-19 dose #1 given elsewhere Unspecified 05/24/2020 09:3 3:00 AM EDT completed eCW1 ([facility]) COVID-19 VACCINE Moderna 05/15/2020 12:00:00 AM EST completed [employer] Vaccine Series Complete: NOThis Data was Submitted to [facility] Via [employer]. influenza, recombinant, quadrIvalent,injectable, prese rvative free 01/07/2020 03:18:00 PM EDT completed eCW1 ([facility]) influenza, recombinant, quadrIvalent,injectable, prese rvative free 01/07/2020 03:18:00 PM EDT completed eCW1 ([facility]) influenza, recombinant, quadrIvalent,injectable, prese rvative free 01/07/2020 03:18:00 PM EDT completed eCW1 ([facility]) influenza, recombinant, quadrIvalent,injectable, prese rvative free 01/07/2020 03:18:00 PM EDT completed eCW1 ([facility]) influenza, recombinant, quadrIvalent,injectable, prese rvative free 01/07/2020 03:18:00 PM EDT completed eCW1 ([facility]) influenza, recombinant, quadrIvalent,injectable, prese rvative free 01/07/2020 03:18:00 PM EDT completed eCW1 ([facility]) influenza, recombinant, quadrIvalent,injectable, prese rvative free 01/07/2020 03:18:00 PM EDT completed eCW1 ([facility]) influenza, recombinant, quadrIvalent,injectable, prese rvative free 01/07/2020 03:18:00 PM EDT completed eCW1 ([facility]) influenza, recombinant, quadrIvalent,injectable, prese rvative free 01/07/2020 03:18:00 PM EDT completed eCW1 ([facility]) influenza, recombinant, quadrIvalent,injectable, prese rvative free 01/07/2020 03:18:00 PM EDT completed eCW1 ([facility]) influenza, recombinant, quadrIvalent,injectable, prese rvative free 01/07/2020 03:18:00 PM EDT completed eCW1 ([facility]) influenza, recombinant, quadrIvalent,injectable, prese rvative free 01/07/2020 03:18:00 PM EDT completed eCW1 ([facility]) influenza, recombinant, quadrIvalent,injectable, prese rvative free 01/07/2020 03:18:00 PM EDT completed eCW1 ([facility]) influenza, recombinant, quadrIvalent,injectable, prese rvative free 01/07/2020 03:18:00 PM EDT completed eCW1 ([facility]) influenza, recombinant, quadrIvalent,injectable, prese rvative free 01/07/2020 03:18:00 PM EDT completed eCW1 ([facility]) influenza, recombinant, quadrIvalent,injectable, prese rvative free 01/07/2020 03:18:00 PM EDT completed eCW1 ([facility]) influenza, recombinant, quadrIvalent,injectable, prese rvative free 01/07/2020 03:18:00 PM EDT completed eCW1 ([facility]) influenza, recombinant, quadrIvalent,injectable, prese rvative free 01/07/2020 03:18:00 PM EDT completed eCW1 ([facility]) influenza, recombinant, quadrIvalent,injectable, prese rvative free 01/07/2020 03:18:00 PM EDT completed eCW1 ([facility]) influenza, recombinant, quadrIvalent,injectable, prese rvative free 01/07/2020 03:18:00 PM EDT completed eCW1 ([facility]) influenza, recombinant, quadrIvalent,injectable, prese rvative free 01/07/2020 03:18:00 PM EDT completed eCW1 ([facility]) influenza, recombinant, quadrIvalent,injectable, prese rvative free 01/07/2020 03:18:00 PM EDT completed eCW1 ([facility]) influenza, recombinant, quadrIvalent,injectable, prese rvative free 01/07/2020 03:18:00 PM EDT completed eCW1 ([facility]) influenza, recombinant, quadrIvalent,injectable, prese rvative free 01/07/2020 03:18:00 PM EDT completed eCW1 ([facility]) influenza, recombinant, quadrIvalent,injectable, prese rvative free 01/07/2020 03:18:00 PM EDT completed eCW1 ([facility]) influenza, recombinant, quadrIvalent,injectable, prese rvative free 01/07/2020 03:18:00 PM EDT completed eCW1 ([facility]) influenza, recombinant, quadrIvalent,injectable, prese rvative free 01/07/2020 03:18:00 PM EDT completed eCW1 ([facility]) influenza, recombinant, quadrIvalent,injectable, prese rvative free 01/07/2020 03:18:00 PM EDT completed eCW1 ([facility]) influenza, recombinant, quadrIvalent,injectable, prese rvative free 01/07/2020 03:18:00 PM EDT completed eCW1 ([facility]) influenza, recombinant, quadrIvalent,injectable, prese rvative free 01/07/2020 03:18:00 PM EDT completed eCW1 ([facility]) influenza, recombinant, quadrIvalent,injectable, prese rvative free 01/07/2020 03:18:00 PM EDT completed eCW1 ([facility]) influenza, recombinant, quadrIvalent,injectable, prese rvative free 01/07/2020 03:18:00 PM EDT completed eCW1 ([facility]) Medications Medication Brand Name Start Date Product [...] AM EDT active Naproxen 500 MG [facility]CW[facility] Naproxen 500 MG Oral Tablet Naproxen 500 MG 12/29/2020 12:00:00 AM EDT active Naproxen 500 MG eCW1 ([facility]) Naproxen 500 MG Oral Tablet Naproxen 500 MG 12/29/2020 12:00:00 AM EDT active Naproxen 500 MG eCW1 ([facility]) Naproxen 500 MG Oral Tablet Naproxen 500 MG 12/29/2020 12:00:00 AM EDT suspended Naproxen 500 MG eCW1 ([facility]) Naproxen 500 MG Oral Tablet Naproxen 500 MG 12/29/2020 12:00:00 AM EDT active eCW1 ([facility]) Naproxen 500 MG Oral Tablet Naproxen 500 MG 12/29/2020 12:00:00 AM EDT active Naproxen 500 MG eCW1 ([facility]) Naproxen 500 MG Oral Tablet Naproxen 500 MG 12/29/2020 12:00:00 AM EDT active Naproxen 500 MG eCW1 ([facility]) Magnesium Hydroxide 80 MG/ML Oral Suspension Milk Of Magnesi a 09/29/2020 12:00:00 AM EDT ORAL active Marifer COLLINS ([facility], ) POLYETHYLENE GLYCOL 3350 142 MG/ML Oral Solution [Miralax] M iralax 09/29/2020 12:00:00 AM EDT active Marifer COLLINS ([facility], ) Vitamin D3 125 MCG (5000 UT) Vitamin D3 125 MCG (5000 UT) 12:00:00 AM EDT 1.0 {capsule} active Vitamin D3 125 MCG (5000 UT) eCW1 ([facility]) Vitamin D3 125 MCG (5000 UT) Vitamin D3 125 MCG (5000 UT) 12:00:00 AM EDT 1.0 {capsule} active Vitamin D3 125 MCG (5000 UT) eCW1 ([facility]) Vitamin D3 125 MCG (5000 UT) Vitamin D3 125 MCG (5000 UT) 12:00:00 AM EDT 1.0 {capsule} active Vitamin D3 125 MCG (5000 UT) eCW1 ([facility]) Vitamin D3 125 MCG (5000 UT) Vitamin D3 125 MCG (5000 UT) 12:00:00 AM EDT 1.0 {capsule} active Vitamin D3 125 MCG (5000 UT) eCW1 ([facility]) Vitamin D3 125 MCG (5000 UT) Vitamin D3 125 MCG (5000 UT) 12:00:00 AM EDT 1.0 {capsule} active Vitamin D3 125 MCG (5000 UT) eCW1 ([facility]) Vitamin D3 125 MCG (5000 UT) Vitamin D3 125 MCG (5000 UT) 12:00:00 AM EDT 1.0 {capsule} active Vitamin D3 125 MCG (5000 UT) eCW1 ([facility]) Naproxen [...] EST active Alendronate Sodium 70 MG eCW1 ([facility]) Alendronic acid 70 MG Oral Tablet Alendronate Sodium 7 0 MG Alendronate Sodium 70 MG 04/29/2020 12:00:00 AM EST active Alendronate Sodium 70 MG eCW1 ([facility]) Alendronic acid 70 MG Oral Tablet Alendronate Sodium 7 0 MG Alendronate Sodium 70 MG 04/29/2020 12:00:00 AM EST active Alendronate Sodium 70 MG eCW1 ([facility]) Alendronic acid 70 MG Oral Tablet Alendronate Sodium 7 0 MG Alendronate Sodium 70 MG 04/29/2020 12:00:00 AM EST active Alendronate Sodium 70 MG eCW1 ([facility]) Amlodipine 2.5 MG Oral Tablet AmLODIPine Besylate 2.5 MG AmLODIPine Besylate 2.5 MG 04/08/2020 12:00:00 AM EST 1.0 {tablet} activ e AmLODIPine Besylate 2.5 MG eCW1 ([facility]) Amlodipine 2.5 MG Oral Tablet AmLODIPine Besylate 2.5 MG AmLODIPine Besylate 2.5 MG 04/08/2020 12:00:00 AM EST 1.0 {tablet} activ e AmLODIPine Besylate 2.5 MG eCW1 ([facility]) Amlodipine 2.5 MG Oral Tablet AmLODIPine Besylate 2.5 MG AmLODIPine Besylate 2.5 MG 04/08/2020 12:00:00 AM EST 1.0 {tablet} activ e AmLODIPine Besylate 2.5 MG eCW1 ([facility]) Amlodipine 2.5 MG Oral Tablet AmLODIPine Besylate 2.5 MG AmLODIPine Besylate 2.5 MG 04/08/2020 12:00:00 AM EST 1.0 {tablet} activ e AmLODIPine Besylate 2.5 MG eCW1 ([facility]) Amlodipine 2.5 MG Oral Tablet amLODIPine Besylate 2.5 MG amLODIPine Besylate 2.5 MG 04/08/2020 12:00:00 AM EST 1.0 {tablet} activ e amLODIPine Besylate 2.5 MG eCW1 ([facility]) Amlodipine 2.5 MG Oral Tablet AmLODIPine Besylate 2.5 MG AmLODIPine Besylate 2.5 MG 04/08/2020 12:00:00 AM EST 1.0 {tablet} activ e AmLODIPine Besylate 2.5 MG eCW1 ([facility]) Amlodipine 2.5 MG Oral Tablet AmLODIPine Besylate 2.5 MG AmLODIPine Besylate 2.5 MG 04/08/2020 12:00:00 AM EST 1.0 {tablet} activ e AmLODIPine Besylate 2.5 MG eCW1 ([facility]) Amlodipine 2.5 MG Oral Tablet AmLODIPine Besylate 2.5 MG AmLODIPine Besylate 2.5 MG 04/08/2020 12:00:00 AM EST 1.0 {tablet} activ e AmLODIPine Besylate 2.5 MG eCW1 ([facility]) Amlodipine 2.5 MG Oral Tablet AmLODIPine Besylate 2.5 MG AmLODIPine Besylate 2.5 MG 04/08/2020 12:00:00 AM EST 1.0 {tablet} activ e AmLODIPine Besylate 2.5 MG eCW1 ([facility]) Amlodipine 2.5 MG Oral Tablet AmLODIPine Besylate 2.5 MG AmLODIPine Besylate 2.5 MG 04/08/2020 12:00:00 AM EST 1.0 {tablet} activ e AmLODIPine Besylate 2.5 MG eCW1 ([facility]) Amlodipine 2.5 MG Oral Tablet AmLODIPine Besylate 2.5 MG AmLODIPine Besylate 2.5 MG 04/08/2020 12:00:00 AM EST 1.0 {tablet} activ e AmLODIPine Besylate 2.5 MG eCW1 ([facility]) Amlodipine 2.5 MG Oral Tablet AmLODIPine Besylate 2.5 MG AmLODIPine Besylate 2.5 MG 04/08/2020 12:00:00 AM EST 1.0 {tablet} activ e AmLODIPine Besylate 2.5 MG eCW1 ([facility]) Amlodipine 2.5 MG Oral Tablet AmLODIPine Besylate 2.5 MG AmLODIPine Besylate 2.5 MG 04/08/2020 12:00:00 AM EST 1.0 {tablet} activ e AmLODIPine Besylate 2.5 MG eCW1 ([facility]) Amlodipine 2.5 MG Oral Tablet amLODIPine Besylate 2.5 MG amLODIPine Besylate 2.5 MG 04/08/2020 12:00:00 AM EST 1.0 {tablet} activ e amLODIPine Besylate 2.5 MG eCW1 ([facility]) Amlodipine 2.5 MG Oral Tablet AmLODIPine Besylate 2.5 MG AmLODIPine Besylate 2.5 MG 04/08/2020 12:00:00 AM EST 1.0 {tablet} activ e AmLODIPine Besylate 2.5 MG eCW1 ([facility]) Amlodipine 5 MG Oral Tablet AmLODIPine Besylate 5 MG AmLODIP ine Besylate 5 MG 01/25/2020 12:00:00 AM EST 1.0 {tablet} active AmLODIPine Besylate 5 MG eCW1 ([facility]) Amlodipine 5 MG Oral Tablet AmLODIPine Besylate 5 MG AmLODIP ine Besylate 5 MG 01/25/2020 12:00:00 AM EST 1.0 {tablet} active AmLODIPine Besylate 5 MG eCW1 ([facility]) Amlodipine 5 MG Oral Tablet AmLODIPine Besylate 5 MG AmLODIP ine Besylate 5 MG 01/25/2020 12:00:00 AM EST 1.0 {tablet} active AmLODIPine Besylate 5 MG eCW1 ([facility]) Amlodipine 5 MG Oral Tablet AmLODIPine Besylate 5 MG AmLODIP ine Besylate 5 MG 01/25/2020 12:00:00 AM EST 1.0 {tablet} active AmLODIPine Besylate 5 MG eCW1 ([facility]) Amlodipine 5 MG Oral Tablet AmLODIPine Besylate 5 MG AmLODIP ine Besylate 5 MG 01/25/2020 12:00:00 AM EST 1.0 {tablet} active AmLODIPine Besylate 5 MG eCW1 ([facility]) Amlodipine 5 MG Oral Tablet AmLODIPine Besylate 5 MG AmLODIP ine Besylate 5 MG 01/25/2020 12:00:00 AM EST 1.0 {tablet} active AmLODIPine Besylate 5 MG eCW1 ([facility]) Acetaminophen 500 MG Oral Tablet Acetaminophen Extra S trength 500 MG Acetaminophen Extra Strength 500 MG 01/23/2020 12:00:00 AM EST 2.0 {tablets_as_needed} active Acetaminophe n Extra Strength 500 MG eCW1 ([facility]) Acetaminophen 500 MG Oral Tablet Acetaminophen Extra S trength 500 MG Acetaminophen Extra Strength 500 MG 01/23/2020 12:00:00 AM EST 2.0 {tablets_as_needed} active Acetaminophe n Extra Strength 500 MG eCW1 ([facility]) Acetaminophen 500 MG Oral Tablet Acetaminophen Extra S trength 500 MG Acetaminophen Extra Strength 500 MG 01/23/2020 12:00:00 AM EST 2.0 {tablets_as_needed} active Acetaminophe n Extra Strength 500 MG eCW1 ([facility]) Acetaminophen 500 MG Oral Tablet Acetaminophen Extra S trength 500 MG Acetaminophen Extra Strength 500 MG 01/23/2020 12:00:00 AM EST 2.0 {tablets_as_needed} active Acetaminophe n Extra Strength 500 MG eCW1 ([facility]) Acetaminophen 500 MG Oral Tablet Acetaminophen Extra S trength 500 MG Acetaminophen Extra Strength 500 MG 01/23/2020 12:00:00 AM EST 2.0 {tablets_as_needed} active Acetaminophe n Extra Strength 500 MG eCW1 ([facility]) Acetaminophen 500 MG Oral Tablet Acetaminophen Extra S trength 500 MG Acetaminophen Extra Strength 500 MG 01/23/2020 12:00:00 AM EST 2.0 {tablets_as_needed} active Acetaminophe n Extra Strength 500 MG eCW1 ([facility]) Acetaminophen 500 MG Oral Tablet Acetaminophen Extra S trength 500 MG Acetaminophen Extra Strength 500 MG 01/23/2020 12:00:00 AM EST 2.0 {tablets_as_needed} active Acetaminophe n Extra Strength 500 MG eCW1 ([facility]) Acetaminophen 500 MG Oral Tablet Acetaminophen Extra S trength 500 MG Acetaminophen Extra Strength 500 MG 01/23/2020 12:00:00 AM EST 2.0 {tablets_as_needed} active Acetaminophe n Extra Strength 500 MG eCW1 ([facility]) Acetaminophen 500 MG Oral Tablet Acetaminophen Extra S trength 500 MG Acetaminophen Extra Strength 500 MG 01/23/2020 12:00:00 AM EST 2.0 {tablets_as_needed} active Acetaminophe n Extra Strength 500 MG eCW1 ([facility]) Acetaminophen 500 MG Oral Tablet Acetaminophen Extra S trength 500 MG Acetaminophen Extra Strength 500 MG 01/23/2020 12:00:00 AM EST 2.0 {tablets_as_needed} active Acetaminophe n Extra Strength 500 MG eCW1 ([facility]) Acetaminophen 500 MG Oral Tablet Acetaminophen Extra S trength 500 MG Acetaminophen Extra Strength 500 MG 01/23/2020 12:00:00 AM EST 2.0 {tablets_as_needed} active Acetaminophe n Extra Strength 500 MG eCW1 ([facility]) Acetaminophen 500 MG Oral Tablet Acetaminophen Extra S trength 500 MG Acetaminophen Extra Strength 500 MG 01/23/2020 12:00:00 AM EST 2.0 {tablets_as_needed} active Acetaminophe n Extra Strength 500 MG eCW1 ([facility]) Acetaminophen 500 MG Oral Tablet Acetaminophen Extra S trength 500 MG Acetaminophen Extra Strength 500 MG 01/23/2020 12:00:00 AM EST 2.0 {tablets_as_needed} active Acetaminophe n Extra Strength 500 MG eCW1 ([facility]) Acetaminophen 500 MG Oral Tablet Acetaminophen Extra S trength 500 MG Acetaminophen Extra Strength 500 MG 01/23/2020 12:00:00 AM EST 2.0 {tablets_as_needed} active Acetaminophe n Extra Strength 500 MG eCW1 ([facility]) Acetaminophen 500 MG Oral Tablet Acetaminophen Extra S trength 500 MG Acetaminophen Extra Strength 500 MG 01/23/2020 12:00:00 AM EST 2.0 {tablets_as_needed} active Acetaminophe n Extra Strength 500 MG eCW1 ([facility]) Acetaminophen 500 MG Oral Tablet Acetaminophen Extra S trength 500 MG Acetaminophen Extra Strength 500 MG 01/23/2020 12:00:00 AM EST 2.0 {tablets_as_needed} active Acetaminophe n Extra Strength 500 MG eCW1 ([facility]) Acetaminophen 500 MG Oral Tablet Acetaminophen Extra S trength 500 MG Acetaminophen Extra Strength 500 MG 01/23/2020 12:00:00 AM EST 2.0 {tablets_as_needed} active Acetaminophe n Extra Strength 500 MG eCW1 ([facility]) Acetaminophen 500 MG Oral Tablet Acetaminophen Extra S trength 500 MG Acetaminophen Extra Strength 500 MG 01/23/2020 12:00:00 AM EST 2.0 {tablets_as_needed} active Acetaminophe n Extra Strength 500 MG eCW1 ([facility]) Acetaminophen 500 MG Oral Tablet Acetaminophen Extra S trength 500 MG Acetaminophen Extra Strength 500 MG 01/23/2020 12:00:00 AM EST 2.0 {tablets_as_needed} active Acetaminophe n Extra Strength 500 MG eCW1 ([facility]) Acetaminophen 500 MG Oral Tablet Acetaminophen Extra S trength 500 MG Acetaminophen Extra Strength 500 MG 01/23/2020 12:00:00 AM EST 2.0 {tablets_as_needed} active Acetaminophe n Extra Strength 500 MG eCW1 ([facility]) Acetaminophen 500 MG Oral Tablet Acetaminophen Extra S trength 500 MG Acetaminophen Extra Strength 500 MG 01/23/2020 12:00:00 AM EST 2.0 {tablets_as_needed} active Acetaminophe n Extra Strength 500 MG eCW1 ([facility]) Acetaminophen 500 MG Oral Tablet Acetaminophen Extra S trength 500 MG Acetaminophen Extra Strength 500 MG 01/23/2020 12:00:00 AM EST 2.0 {tablets_as_needed} active Acetaminophe n Extra Strength 500 MG eCW1 ([facility]) Insurance Providers Payer name Policy type / Coverage type Policy ID Covered republican ID Covered republican's relationship to lou Policy Lou Plan Information MEDICARE [id number] Bridgett [id number] W70 MEDICARE [id number] SP [id number] MEDICARE [id number] SP [id number] MEDICARE [id number] SP [id number] [facility] MEDICAID [id number] SP [id number] WELLCARE [id number] SP [id number] HUMANA GOLD [id number] SP [id number] WELLCARE [id number] SP [id number] [place] [id number] SP [id number] MEDICARE C [id number] S [id number] MEDICAID M [id number] S [id number] SELF PAY ONLY [id number] SP [id number] MEDICARE [id number] SP [id number] HUMANA GOLD [id number] SP [id number] MEDICARE [id number] SP [id number] HUMANA GOLD [id number] SP [id number] Problems, Conditions, and Diagnoses Code Display Name Description Problem Type Effective Dates Data Source(s) Z60.2 Problems related to living alone Problems relate d to living alone Diagnosis 01/25/2021 12:00:00 AM EST NDOC ([facility] ) Z85.42 Personal history of malignant neoplasm o f other parts of uterus Personal history of malignant neoplasm of other parts of uterus Diagnosis 01/25/2021 12:00:00 AM EST NDOC ([facility]) Z85.43 Personal history of malignant neoplasm o f ovary Personal history of malignant neoplasm of ovary Diagnosis 01/25/2021 12:00:00 AM EST NDOC ([facility]) Z91.81 History of falling History of falling Diagnosis 12:00:00 AM EST NDOC ([facility]) F17.210 Nicotine dependence, cigarettes, uncompl icated Nicotine dependence, cigarettes, uncomplicated Diagnosis 01/25/2021 12:00:00 AM EST NDOC ([facility]) I25.2 Old myocardial infarction Old myocardial infarction Di agnosis 01/25/2021 12:00:00 AM EST NDOC ([facility]) E78.5 Hyperlipidemia, unspecified Hyperlipidemia, unspecifie d Diagnosis 01/25/2021 12:00:00 AM EST NDOC ([facility]) M81.0 Age-related osteoporosis without current pathological fracture Age-related osteoporosis without current pathological fracture Diagnosis 12:00:00 AM EST NDOC ([facility]) E55.9 Vitamin D deficiency, unspecified Vitamin D defi ciency, unspecified Diagnosis 01/25/2021 12:00:00 AM EST NDOC ([facility] ) R13.10 Dysphagia, unspecified Dysphagia, unspecified Diagnosi s 01/25/2021 12:00:00 AM EST NDOC ([facility]) K21.9 Gastro-esophageal reflux disease without esophagitis Gastro-esophageal reflux disease without esophagitis Diagnosis 01/25/2021 12:00:00 AM ES T NDOC ([facility]) M54.50 M54.50 Low back pain, unspecified Diagnosis 12:00:00 AM EST NDOC ([facility]) K57.90 Diverticulosis of intestine, part unspecified, without perforation or abscess without bleeding Diverticulosis of intestine, part unspec ified, without perforation or abscess without bleeding Diagnosis 01/25/2021 12:00:00 AM EST NDOC ([facility]) K92.2 Gastrointestinal hemorrhage, unspecified Gastrointestinal hemorrhage, unspecified Diagnosis 01/25/2021 12:00:00 AM EST NDOC ([facility]) D53.9 Nutritional anemia, unspecified Nutritional anemia, un specified Diagnosis 01/25/2021 12:00:00 AM EST NDOC ([facility]) R29.6 Repeated falls Repeated falls Diagnosis 01/25/2021 12:00: 00 AM EST NDOC ([facility]) I10 Essential (primary) hypertension Essential (primary) h ypertension Diagnosis 01/25/2021 12:00:00 AM EST NDOC ([facility]) I25.10 Atherosclerotic heart diseas e of [place] coronary artery without angina pectoris Atherosclerotic heart disease of [place] coronary artery without angina pectoris Diagnosis 01/25/2021 12:00:00 AM EST NDOC ([facility]) J98.11 Atelectasis Atelectasis Diagnosis 01/25/2021 12:00:00 AM EST NDOC ([facility]) U07.1 U07.1 COVID-19 Diagnosis 01/25/2021 12:00:00 AM ES T NDOC ([facility]) A04.72 Enterocolitis due to Clostridium diffici le, not specified as recurrent Enterocolitis due to Clostridium difficile, not specified as recurrent Diagnosis 01/25/2021 12:00:00 AM EST NDOC ([facility] ) R29.6 [id number] Frequent falls Problem 12/27/2020 12:00:00 A M EDT eCW1 ([facility]) E55.9 Vitamin D deficiency Vitamin D deficiency Problem 07/20/2020 12:00:00 AM EDT eCW1 ([facility]) D75.89 Macrocytosis Macrocytosis Problem 04/08/2020 12:00:00 A M EST eCW1 ([facility]) D75.89 [id number] Macrocytosis without anemia Problem 02/20/20 12:00:00 AM EST eCW1 ([facility]) K21.9 [id number] Gastroesophageal ref lux disease, unspecified whether esophagitis present Problem 01/07/2020 12:00:00 AM EDT eCW1 ([facility]) E78.2 [id number] Mixed hyperlipidemia Problem 01/07/2020 12:0 0:00 AM EDT eCW1 ([facility]) I10 [id number] Essential hypertension Problem 01/07/2020 12 :00:00 AM EDT eCW1 ([facility]) Z86.73 [id number] History of TIA (transient ischemic attack ) Problem 01/07/2020 12:00:00 AM EDT eCW1 ([facility]) F17.210 [id number] Cigarette nicotine dependence without com plication Problem 01/07/2020 12:00:00 AM EDT eCW1 ([facility]) Surgeries/Procedures Procedure Description Date Indications Data Source(s) OFFICE OUTPATIENT VISIT 25 MINUTES 09/29/2020 12:00:00 AM EDT MEDENT ([facility] ) ECG ROUTINE ECG W/LEAST 12 LDS W/I&R 01/07/2020 12:00: 00 AM EDT eCW1 ([facility]) Immunization: Flublok Quadrivalent (18 years & older) 0.5mL IM (Influenza) 01/07/2020 12:00:00 AM EDT eCW1 ([facility]) Results ID Date Data Source [id number] 01/20/2021 07:38:00 PM EST [facility] Name Value Range Interpretation Code Description Data Tram rce(s) Supporting Document(s) SARS coronavirus 2 RNA [Presence] in Res piratory specimen by ABY with probe detection POSITIVE [facility] This lab was ordered by [facility] a nd reported by [facility]. ID Date Data Source [id number] 12/27/2020 12:22:00 PM EDT [facility] Name Value Range Interpretation Code Description Data Tram rce(s) Supporting Document(s) SARS coronavirus 2 RNA [Presence] in Res piratory specimen by ABY with probe detection NEGATIVE [facility] This lab was ordered by [facility] a nd reported by [facility]. ID Date Data Source [id number] 03/18/2020 10:06:34 AM EST [facility] Name Value Range Interpretation Code Description Data Tram rce(s) Supporting Document(s) &PDF [facility] WTFADy2rOpAHEtZb64/MGMjmIVPbo9PmVCjxNFl7CCnjELQmA1NyaXtfIDCZRB0TVNISVo4LCBAMNS0z FcG [file] ICAgICAgICAgICAgICAgICAgICAgICAgICAgICAgICAgICAgICAgICAgICAgICAgICAgICAgICAgICAg ICAgICAgICAgICAgICAgICAgICAgICAgICAgICAgICAgICAgICANCiAgICAgICAgICAgICAgICAgICAg ICAgICAgICAgICAgICAgICAgICAgICAgICAgICAgIC AgICAgICAgICAgICAgICAgICAgICAgICAgICAgICAgICAgICAgICAgICAgICAgICANCiAgICAgICAgIC AgICAgICAgICAgICAgICAgICAgICAgICAgICAgICAgICAgICAgICAgICAgICAgICAgICAgICAgICAgIC AgICAgICAgICAgICAgICAgICAgICAgICAgICAgICAN CiAgICAgICAgICAgICAgICAgICAgICAgICAgICAgICAgICAgICAgICAgICAgICAgICAgICAgICAgICAg ICAgICAgICAgICAgICAgICAgICAgICAgICAgICAgICAgICAgICAgICANCiAgICAgICAgICAgICAgICAg ICAgICAgICAgICAgICAgICAgICAgICAgICAgICAgIC AgICAgICAgICAgICAgICAgICAgICAgICAgICAgICAgICAgICAgICAgICAgICAgICAgICANCiAgICAgIC AgICAgICAgICAgICAgICAgICAgICAgICAgICAgICAgICAgICAgICAgICAgICAgICAgICAgICAgICAgIC AgICAgICAgICAgICAgICAgICAgICAgICAgICAgICAg ICANCiAgICAgICAgICAgICAgICAgICAgICAgICAgICAgICAgICAgICAgICAgICAgICAgICAgICAgICAg ICAgICAgICAgICAgICAgICAgICAgICAgICAgICAgICAgICAgICAgICAgICANCiAgICAgICAgICAgICAg ICAgICAgICAgICAgICAgICAgICAgICAgICAgICAgIC AgICAgICAgICAgICAgICAgICAgICAgICAgICAgICAgICAgICAgICAgICAgICAgICAgICAgICANCiAgIC AgICAgICAgICAgICAgICAgICAgICAgICAgICAgICAgICAgICAgICAgICAgICAgICAgICAgICAgICAgIC AgICAgICAgICAgICAgICAgICAgICAgICAgICAgICAg ICAgICANCiAgICAgICAgICAgICAgICAgICAgICAgICAgICAgICAgICAgICAgICAgICAgICAgICAgICAg ICAgICAgICAgICAgICAgICAgICAgICAgICAgICAgICAgICAgICAgICAgICAgICANCjw/sMWnS3kpaLQa fsE8Z8faIi6XRs2AYC8nw8TtUVSaDPyzriEhXgvIPe KkSZLcMznOIzg8FOdvYB6OuPGyQ5OiS5XzIDoeLL7TXQLhOCXepNOtLUSaROMzQwR3SYFpEVaqDA6NdW BsSRwkDAWkHSLpLH6ZAEIjB522mwSmEO3OMc9TUnDyXC9rrn3EQCdzUZEcKukUGbm3DHrpYR1DdLKpP4 HvvSPqs8pAYpOhQ5TPFNF7DJDiGl3KCDGxLdNlRKUo RNtbGK5jDOJfUVJItRmdvvA9KK1IGP2swrFuXI3PNzRnOa3iGe6ZQrDtT7XiK2AwQSJhNAALIUnqMF6L ISFmYVJ0RMDgGXPjWWXLRpJpD75iTE9VN1Qkh35oYuM3UDOcPtVzQOxsVC56kTznupXziZMjqTpvAA8H Cj4+DQplbmRvYmoNCnhyZWYNCjAgMjANCjAwMDAwMD KsTPZnBsT1OeLbNk7SDKJfOTHbDSNwZxRfSCWcEJKvZZcmMOMrJNC5DlqeQPGvGZBhXY8HIpXaUJWwRT anWZfgLMMmGSEowg5SWHKpXDQfJZO7GXWvUTFbDQSlWHmqUEMcUQYtKZF3LXUeDMJaDY6ABrGySTKxKE M6RBSxVWOvUMUbtj4PHQCuWRCbPlB8ZyXjYMPnLTTg KLxdUSOmQONhWxU4JZUmOGEhBY1THgGfSDJxYFP9HRkdSZMoXHFewr3NIRMyPENzBCdvIpLqKAHrFTGe JFsaALMbXGP9BVM4DWSiXSJmYH0XHnKcTPTmTWNuBEIsOVZbVCXxrm9MSFBiFEJtPdN1TdUyOPDlZZMl ICilDSDxSBH6OGU1YZLaHSRhXC6OMfQqXVNbHYU4Mb yrZHYlACZxnw8POJYtBWIkYyCsYQVdOPDpIJKuLAapYYGvODO8CqR6YIXwXDVlNL2ENlAvKPVmWYN7Il drYZEsZGRjik9MHMBuTWVyEiJkHhFzXDWiGNPzHAy0tnUupQKtKOk3OE8MP9TjnmZgThQIPj2Ld408SU O0KYUhKv9PV6bzTr3lDTRtEDCKOy7YIJb5ULHgRbon VPTuZ0UhJKHtDWVaAHCcJhO1TNixEmOzNPh+EFcmSjVjO9TuKYXhEhA9BoWjKXVnFDY1DeIzWMLcEEQw Ro6xCXJMHs3+MRmarDUraTsvOSUONbG9IKQ5DLsxQICNZa1N ID Date Data Source FERRITIN 02/02/2020 12:00:00 AM EST eCW1 ([facility]) Name Value Range Interpretation Code Description Data Tram rce(s) Supporting Document(s) 130 8-252 FERRITIN eCW1 ([facility]) ID Date Data Source MAGNESIUM LEVEL 02/02/2020 12:00:00 AM EST eCW1 ([facility]) Name Value Range Interpretation Code Description Data Tram rce(s) Supporting Document(s) 2.1 1.8-2.4 MAGNESIUM LEVEL eCW1 ([facility]) ID Date Data Source IRON (FE) 02/02/2020 12:00:00 AM EST eCW1 ([facility]) Name Value Range Interpretation Code Description Data Tram rce(s) Supporting Document(s) 112 50-170 IRON (FE) eCW1 ([facility]) ID Date Data Source Comprehensive Metabolic Profile (CMP) 02/02/2020 12:00:00 AM EST eCW1 ([facility]) Name Value Range Interpretation Code Description Data Tram rce(s) Supporting Document(s) 90 70-100 GLUCOSE, FASTING eCW1 ([facility]) 137 136-145 SODIUM LEVEL eCW1 ([facility]) 3 7-18 BLOOD UREA NITROGEN eCW1 ([facility]) 0.58 0.55-1.30 CREATININE FOR GFR eCW1 ([facility]) > 60.0 >39 GLOMERULAR FILTRATION RATE eCW 1 ([facility]) 4.2 3.5-5.1 POTASSIUM SERUM eCW1 ([facility]) 9.2 8.8-10.2 CALCIUM LEVEL eCW1 ([facility]) 25 21-32 CARBON DIOXIDE LEVEL eCW1 ([facility]) 104 98-107 CHLORIDE LEVEL eCW1 ([facility]) 26 7-37 AST/SGOT eCW1 ([facility]) 0.3 0.2-1.0 BILIRUBIN,TOTAL eCW1 ([facility]) 6.5 6.4-8.2 TOTAL PROTEIN eCW1 ([facility]) 2.8 3.2-5.2 ALBUMIN eCW1 ([facility]) 23 12-78 ALT/SGPT eCW1 ([facility]) 115 45-117 ALKALINE PHOSPHATASE eCW1 ([facility]) 0.8 1.2-2.2 ALBUMIN/GLOBULIN RATIO eCW1 ([facility]) ID Date Data Source CBC with Differential 02/02/2020 12:00:00 AM EST eCW1 ([facility]) Name Value Range Interpretation Code Description Data Tram rce(s) Supporting Document(s) 4.09 4.00-5.40 RED BLOOD COUNT eCW1 ([facility]) 7.5 4.0-10.0 WHITE BLOOD COUNT eCW1 [facility] 14.5 12.0-15.5 HEMOGLOBIN eCW1 ([facility]) 107.6 80.0-96.0 MEAN CORPUSCULAR VOLUME e CW1 ([facility]) 33.0 32.0-36.5 MEAN CORPUSCULAR HGB CONC eCW1 ([facility]) 35.5 27.0-33.0 MEAN CORPUSCULAR HEMOGLOB IN eCW1 ([facility]) 44.0 36.0-47.0 HEMATOCRIT eCW1 ([facility]) 44.0 36.0-66.0 NEUTROPHILS % eCW1 ([facility]) 339 150-450 PLATELET COUNT, AUTOMATED eCW1 ([facility]) 13.2 11.5-14.5 RED CELL DISTRIBUTION WID TH eCW1 ([facility]) 44.6 24.0-44.0 LYMPH % eCW1 ([facility]) 1.6 0.0-3.0 EOS % eCW1 ([facility]) 3.3 1.5-8.5 NEUTROPHILS # eCW1 ([facility]) 8.4 0.0-5.0 MONO % eCW1 ([facility]) 1.1 0.0-1.0 BASO % eCW1 ([facility]) 3.3 1.5-5.0 LYMPH # eCW1 ([facility]) 0.1 0.0-0.2 BASO # eCW1 ([facility]) 0.6 0.0-0.8 MONO # eCW1 ([facility]) 0.1 0.0-0.5 EOS # eCW1 ([facility]) ID Date Data Source FREE T4 & TSH PANEL 01/08/2020 04:13:07 AM EDT eCW1 ([facility]) Name Value Range Interpretation Code Description Data Tram rce(s) Supporting Document(s) 1.32 eCW1 ([facility]) 0.859 eCW1 ([facility]) Procedure Social History Code Duration Value Status Description Data Source(s ) Smoking 02/21/2021 12:00:00 AM EST Current Smoker completed Curre nt Smoker eCW1 ([facility]) Smoking 12/27/2020 12:00:00 AM EDT Current Smoker completed Curre nt Smoker eCW1 ([facility]) Smoking 12/27/2020 12:00:00 AM EDT Current Smoker completed Curre nt Smoker eCW1 ([facility]) Smoking 12/27/2020 12:00:00 AM EDT Current Smoker completed Curre nt Smoker eCW1 ([facility]) Smoking 12/27/2020 12:00:00 AM EDT Current Smoker completed Curre nt Smoker eCW1 ([facility]) Smoking 12/27/2020 12:00:00 AM EDT Current Smoker completed Curre nt Smoker eCW1 ([facility]) Smoking 12/27/2020 12:00:00 AM EDT Current Smoker completed Curre nt Smoker eCW1 ([facility]) Smoking 12/27/2020 12:00:00 AM EDT Current Smoker completed Curre nt Smoker eCW1 ([facility]) Smoking 11/08/2020 12:00:00 AM EDT Current Smoker completed Curre nt Smoker eCW1 ([facility]) Smoking 08/26/2020 12:00:00 AM EDT Current Smoker completed Curre nt Smoker eCW1 ([facility]) Smoking 08/26/2020 12:00:00 AM EDT Current Smoker completed Curre nt Smoker eCW1 ([facility]) Smoking 07/20/2020 12:00:00 AM EDT Current Smoker completed Curre nt Smoker eCW1 ([facility]) Smoking 07/20/2020 12:00:00 AM EDT Current Smoker completed Curre nt Smoker eCW1 ([facility]) Smoking 07/20/2020 12:00:00 AM EDT Current Smoker completed Curre nt Smoker eCW1 ([facility]) Smoking 07/08/2020 12:00:00 AM EDT Current Smoker completed Curre nt Smoker eCW1 ([facility]) Smoking 07/08/2020 12:00:00 AM EDT Current Smoker completed Curre nt Smoker eCW1 ([facility]) Smoking 04/08/2020 12:00:00 AM EST Current Smoker completed Curre nt Smoker eCW1 ([facility]) Smoking 04/08/2020 12:00:00 AM EST Current Smoker completed Curre nt Smoker eCW1 ([facility]) Smoking 04/08/2020 12:00:00 AM EST Current Smoker completed Curre nt Smoker eCW1 ([facility]) Smoking 04/08/2020 12:00:00 AM EST Current Smoker completed Curre nt Smoker eCW1 ([facility]) Smoking 04/08/2020 12:00:00 AM EST Current Smoker completed Curre nt Smoker eCW1 ([facility]) Smoking 04/08/2020 12:00:00 AM EST Current Smoker completed Curre nt Smoker eCW1 ([facility]) Smoking 04/08/2020 12:00:00 AM EST Current Smoker completed Curre nt Smoker eCW1 ([facility]) Smoking 04/08/2020 12:00:00 AM EST Current Smoker completed Curre nt Smoker eCW1 ([facility]) Smoking 02/20/2020 12:00:00 AM EST Current Smoker completed Curre nt Smoker eCW1 ([facility]) Smoking 02/20/2020 12:00:00 AM EST Current Smoker completed Curre nt Smoker eCW1 ([facility]) Smoking 02/20/2020 12:00:00 AM EST Current Smoker completed Curre nt Smoker eCW1 ([facility]) Smoking 02/02/2020 12:00:00 AM EST Current Smoker completed Curre nt Smoker eCW1 ([facility]) Smoking 01/07/2020 12:00:00 AM EDT Current Smoker completed Curre nt Smoker eCW1 ([facility]) Smoking 01/07/2020 12:00:00 AM EDT Current Smoker completed Curre nt Smoker eCW1 ([facility]) Smoking 01/07/2020 12:00:00 AM EDT Current Smoker completed Curre nt Smoker eCW1 ([facility]) Smoking 01/07/2020 12:00:00 AM EDT Current Smoker completed Curre nt Smoker eCW1 ([facility]) Vital Signs ID Date Data Source UNK Name Value Range Interpretation Code Description Data Source(s) Body weight 134 [lb_av] 134 [lb_av] eCW1 ([facility]) Body height 65 [in_i] 65 [in_i] eCW1 ([facility]) Body mass index (BMI) [Ratio] 22.30 kg/m2 22.30 kg/m2 eCW1 ([facility]) Heart rate 98 /min 98 /min eCW1 ([facility]) Respiratory rate 18 /min 18 /min eCW1 ([facility]) Body temperature 97.1 [degF] 97.1 [degF] eCW1 ( [facility]) Systolic blood pressure 100 mm[Hg] 100 mm[Hg] e CW1 ([facility]) Diastolic blood pressure 58 mm[Hg] 58 mm[Hg] eCW1 ([facility]) Systolic blood pressure 134 mm[Hg] 134 mm[Hg] M EDENT ([facility]) Diastolic blood pressure 68 mm[Hg] 68 mm[Hg] MEDENT ([facility]) Body height 64 [in_i] 64 [in_i] [facility] ([facility]) 5'4" Body weight 142.00 [lb_av] 142.00 [lb_av] MEDEN T ([facility]) Body mass index (BMI) [Ratio] 24.4 kg/m2 24.4 k g/m2 [facility] ([facility]) [place] body weight 120 [lb_av] 120 [lb_av] MEDEN T ([facility]) Body weight 64.411 kg 64.411 kg [facility] ([facility]) Body surface area Derived from formula 1.69 m2 1.69 m2 [facility] ([facility]) Body weight 143 [lb_av] 143 [lb_av] eCW1 ([facility]) Body height 65 [in_i] 65 [in_i] eCW1 ([facility]) Body mass index (BMI) [Ratio] 23.79 kg/m2 23.79 kg/m2 W1 ([facility]) Heart rate 101 /min 101 /min eCW1 ([facility]) Respiratory rate 18 /min 18 /min eCW1 ([facility]) Body temperature 96.8 [degF] 96.8 [degF] eCW1 ( [facility]) Systolic blood pressure 98 mm[Hg] 98 mm[Hg] e CW1 ([facility]) Diastolic blood pressure 60 mm[Hg] 60 mm[Hg] eCW1 ([facility]) Body weight 140 [lb_av] 140 [lb_av] eCW1 ([facility]) Body height 65 [in_i] 65 [in_i] eCW1 ([facility]) Body mass index (BMI) [Ratio] 23.29 kg/m2 23.29 kg/m2 eCW1 ([facility]) Heart rate 93 /min 93 /min eCW1 ([facility]) Respiratory rate 18 /min 18 /min eCW1 ([facility]) Body temperature 97.4 [degF] 97.4 [degF] eCW1 ( [facility]) Systolic blood pressure 122 mm[Hg] 122 mm[Hg] e CW1 ([facility]) Diastolic blood pressure 60 mm[Hg] 60 mm[Hg] eCW1 ([facility]) Body weight 140 [lb_av] 140 [lb_av] eCW1 ([facility]) Body height 65 [in_i] 65 [in_i] eCW1 ([facility]) Body mass index (BMI) [Ratio] 23.29 kg/m2 23.29 kg/m2 eCW1 ([facility]) Heart rate 92 /min 92 /min eCW1 ([facility]) Respiratory rate 18 /min 18 /min eCW1 ([facility]) Body temperature 98.1 [degF] 98.1 [degF] eCW1 ( [facility]) Systolic blood pressure 138 mm[Hg] 138 mm[Hg] e CW1 ([facility]) Diastolic blood pressure 78 mm[Hg] 78 mm[Hg] eCW1 ([facility]) Respiratory rate 18 /min 18 /min eCW1 (Pending sale to [facility]) Body weight 134 [lb_av] 134 [lb_av] eCW1 ([facility]) Heart rate 92 /min 92 /min eCW1 ([facility]) Body temperature 96.5 [degF] 96.5 [degF] eCW1 ( [facility]) Body height 65 [in_i] 65 [in_i] eCW1 ([facility]) Body mass index (BMI) [Ratio] 22.30 kg/m2 22.30 kg/m2 eCW1 ([facility]) Systolic blood pressure 116 mm[Hg] 116 mm[Hg] e CW1 ([facility]) Diastolic blood pressure 60 mm[Hg] 60 mm[Hg] eCW1 ([facility]) Body weight 134 [lb_av] 134 [lb_av] eCW1 ([facility]) Body height 65 [in_i] 65 [in_i] eCW1 ([facility]) Respiratory rate 18 /min 18 /min eCW1 (Pending sale to [facility]) Heart rate 101 /min 101 /min eCW1 ([facility]) Body temperature 97.3 [degF] 97.3 [degF] eCW1 ( [facility]) Body mass index (BMI) [Ratio] 22.30 kg/m2 22.30 kg/m2 eCW1 ([facility]) Systolic blood pressure 120 mm[Hg] 120 mm[Hg] e CW1 ([facility]) Diastolic blood pressure 60 mm[Hg] 60 mm[Hg] eCW1 ([facility]) Body weight 135.4 [lb_av] 135.4 [lb_av] eCW1 ([facility]) Body height 65 [in_i] 65 [in_i] eCW1 ([facility]) Body mass index (BMI) [Ratio] 22.53 kg/m2 22.53 kg/m2 eCW1 ([facility]) Heart rate 93 /min 93 /min eCW1 ([facility]) Respiratory rate 18 /min 18 /min eCW1 (Pending sale to [facility]) Body temperature 98.2 [degF] 98.2 [degF] eCW1 ( [facility]) Systolic blood pressure 122 mm[Hg] 122 mm[Hg] e CW1 ([facility]) Diastolic blood pressure 62 mm[Hg] 62 mm[Hg] eCW1 ([facility]) Body weight 135 [lb_av] 135 [lb_av] eCW1 ([facility]) Body height 65 [in_i] 65 [in_i] eCW1 ([facility]) Body mass index (BMI) [Ratio] 22.46 kg/m2 22.46 kg/m2 eCW1 ([facility]) Heart rate 101 /min 101 /min eCW1 ([facility]) Respiratory rate 20 /min 20 /min eCW1 ([facility]ending [facility] to [facility]) Body temperature 96 [degF] 96 [degF] eCW1 ([facility]ending [facility] to [facility]) Systolic blood pressure 120 mm[Hg] 120 mm[Hg] e CW1 ([facility]) Diastolic blood pressure 62 mm[Hg] 62 mm[Hg] eCW1 ([facility]) Patient Treatment Plan of Care Planned Activity Planned Date Details Description Data Source (s) Vitamin D3 125 MCG (5000 UT) 07/22/2020 12:00:00 AM EDT eCW1 ([facility]) Vitamin D3 125 MCG (5000 UT) 07/22/2020 12:00:00 AM EDT eCW1 ([facility]) Naproxen 375 MG Oral Tablet 07/20/2020 12:00:00 AM EDT eCW1 ([facility]) Naproxen 375 MG Oral Tablet 07/20/2020 12:00:00 AM EDT eCW1 ([facility]) Naproxen 375 MG Oral Tablet 07/20/2020 12:00:00 AM EDT eCW1 ([facility]) Alendronic acid 70 MG Oral Tablet 04/29/2020 12:00:00 AM EST eCW1 ([facility]) Alendronic acid 70 MG Oral Tablet 04/29/2020 12:00:00 AM EST eCW1 ([facility]) Alendronic acid 70 MG Oral Tablet 04/29/2020 12:00:00 AM EST eCW1 ([facility]) Alendronic acid 70 MG Oral Tablet 04/29/2020 12:00:00 AM EST eCW1 ([facility]) Amlodipine 2.5 MG Oral Tablet 04/08/2020 12:00:00 AM EST eCW1 ([facility]) Amlodipine 2.5 MG Oral Tablet 04/08/2020 12:00:00 AM EST eCW1 ([facility]) Amlodipine 2.5 MG Oral Tablet 04/08/2020 12:00:00 AM EST eCW1 ([facility]) Amlodipine 2.5 MG Oral Tablet 04/08/2020 12:00:00 AM EST eCW1 ([facility]) Amlodipine 2.5 MG Oral Tablet 04/08/2020 12:00:00 AM EST eCW1 ([facility]) Amlodipine 2.5 MG Oral Tablet 04/08/2020 12:00:00 AM EST eCW1 ([facility]) Amlodipine 2.5 MG Oral Tablet 04/08/2020 12:00:00 AM EST eCW1 ([facility]) Amlodipine 2.5 MG Oral Tablet 04/08/2020 12:00:00 AM EST eCW1 ([facility]) Amlodipine 2.5 MG Oral Tablet 04/08/2020 12:00:00 AM EST eCW1 ([facility]) Amlodipine 2.5 MG Oral Tablet 04/08/2020 12:00:00 AM EST eCW1 ([facility]) Amlodipine 5 MG Oral Tablet 01/25/2020 12:00:00 AM EST eCW1 ([facility]) Acetaminophen 500 MG Oral Tablet 01/23/2020 12:00:00 AM EST eCW1 ([facility]) Acetaminophen 500 MG Oral Tablet 01/23/2020 12:00:00 AM EST eCW1 ([facility]) Acetaminophen 500 MG Oral Tablet 01/23/2020 12:00:00 AM EST eCW1 ([facility])
--- OUTSIDE RECORDS SUMMARY | 2021-02-22 00:35 | CCD ---
Author Author [facility] Address Unknown Phone Unavailable Care Team Providers Care Pre Coder Name Role Phone Unavailable Unavailable Problems Condition Name Condition Details Condition Category Status Onset Date Resolution Date Last Treatment Date Treating Clinician Comments Enterocolitis due to Clostridium difficile, not specif ied as recurrent Enterocolitis due to Clostridium difficile, not specified as recurrent Diagnosis Active Linda Day COVID-19 COVID-19 Diagnosis Active Linda Cronin Atelectasis Atelectasis Diagnosis Active Andi Charlton Atherosclerotic heart disease of [place] coronary arter y without angina pectoris Atherosclerotic heart disease of [place] coronary artery without angina pectoris Diagnosis Active [...] falling History of falling Diagnosis Active Linda aDy Personal history of malignant neoplasm of ovary [...]
[2021-02-22] MEDS: NS 1,000 ML IV SCH ×2 (01:10→16:07)
--- NOTE | 2021-02-22 01:10 | HPEPDOC ---
[facility] Medical History & Physical Date of Admission Feb 22, 2021 Date of Service: Feb 22, 2021 History and Physical CHIEF COMPLAINT: Intractable diarrhea with vomiting HISTORY OF PRESENT ILLNESS: Mrs. Lowery is a pleasant 75-year-old female with a past medical history of hypertension, GERD, hyperlipidemia, ovarian and uterine cancers. She was recently admitted to [facility] in January 2021 for colitis secondary to C. difficile. She was discharged with a course of p.o. vancomycin. She reports that she picked up the course of vancomycin 8 days after discharge. Patient returns to the ER with persistent diarrhea for the past 2 weeks reports significant weight loss approximately 15 to 20 pounds. Her diarrhea is profuse, watery, occurring approximately 3-4 times per day and is associated with occasional nonbloody nonbilious vomiting and nausea. Patient denies any chest pain palpitation shortness of breath nausea vomiting or diarrhea. She is hemodynamically stable in the ER. 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 AST MEDICAL HISTORY: 1. Hyperlipidemia. 2. History of hypertension. 3. GERD. 4. History of ovarian and uterine cancer 5. COVID-19 infection PAST SURGICAL HISTORY: 1. Hysterectomy. 2. Cholecystectomy. 3. Breast surgery. 4. Right hemicolectomy, pathology showed large tubovillous adenoma, with rare foci of superficial high-grade dysplasia SOCIAL HISTORY: Smoker, 1 ppd Rare etoh use Denies illicit drug use FAMILY HISTORY: Reviewed with patient, no pertinent family history ALLERGIES: Please see below. REVIEW OF SYSTEMS: 10 point ROS conducted, relevant findings are noted on HPI HOME MEDICATIONS: Please see below. PHYSICAL EXAMINATION: VITAL SIGNS: please see below General: NAD, comfortable HEENT: PERRLA, EOMI, sclerae clear Neck: supple, normal ROM, no JVD Respiratory: lungs CTAB, no wheeze, no rales, no crackles CVS: RRR, normal S1, S2, no murmurs Abdo: soft, no masses, no hepatosplenomegaly, BS+, no rebound tenderness Extremities: no edema, pulses 2+ MSK: no joint deformities, normal ROM Neuro: no focal neuro deficits, moving all 4 extremities, CN2-12 intact. Strength 5/5 in all 4 extremities. No nystagmus. Psych: calm, cooperative, AAO x 3 LABORATORY DATA: See below. IMAGING: CT abdomen pelvis with IV contrast on 02/21/2021: 1. Small gastroesophageal sliding type hiatal hernia. Distal esophageal, and gastric and duodenal wall thickening and hyperenhancement, correlate for gastritis and duodenitis. 2. Moderate diverticulosis coli. 3. Moderate right common iliac artery stenosis. Moderate severe distal left common iliac artery stenosis. MICROBIOLOGY: Please see below. ASSESSMENT: Mrs. Lowery is a pleasant 75-year-old female with a past medical history of hypertension, GERD, hyperlipidemia, ovarian and uterine cancers. . PLAN: #Intractable and recurrent watery diarrhea: hx c diff colitis in 01/30. S/p course of vancomycin. Picked up rx 8 days after last DC, unknown reason. States 4 watery BMs for past 2 weeks, 15-20 lb weight loss. Poor PO intake. Suspect C diff recurrence. Check GI panel. Start empiric dificid [address] abdo revi ewed as above, no focal diverticulitis, but possible gastritis/duondenitis. GI cocktail. Pantoprazole IV. Repeat LA. #Hx of HTN: c/w amlodipine. #Hx of Tubulovillious adenma of ascending colon: s/p R hemicolectomy 10/2019. #Macrocytic anemia: follows with hematology. DVT ppx: SCDpercos. TEDs. Dispo: pending clinical improvement. Med rec pending. Vital Signs Vital Signs Date Time Temp Pulse Resp B/P (MAP) Pulse Ox O2 Delivery O2 Flow Rate FiO2 02/21/21 23:47 85 97 02/21/21 23:13 98.9 19 150/68 (95) 02/21/21 15:15 Room Air Laboratory Data Labs 24H Laboratory Tests 2 02/21/21 18:27: Immature Granulocyte % (Auto) 0.3, Neutrophils (%) (Auto) 75.1H, Lymphocytes (%) (Auto) 17.1L, Monocytes (%) (Auto) 7.2, Eosinophils (%) (Auto) 0.0, Basophils (%) (Auto) 0.3, Neutrophils # (Auto) 6.9, Lymphocytes # (Auto) 1.6, Monocytes # (Auto) 0.7, Eosinophils # (Auto) 0.0, Basophils # (Auto) 0.0, Nucleated Red Blood Cells % (auto) 0.0, Lactic Acid Level 3.1*H 02/21/21 18:36: Anion Gap 10, Glomerular Filtration Rate > 60.0, Calcium Level 8.5L, Total Bilirubin 1.3H, Direct Bilirubin 0.4H, Aspartate Amino Transf (AST/SGOT) 72H, Alanine Aminotransferase (ALT/SGPT) 39, Alkaline Phosphatase 186H, Total Protein 6.3L, Albumin 2.0L, Albumin/Globulin Ratio 0.5L, Lipase 80 CBC/BMP Laboratory Tests 02/21/21 18:27 02/21/21 18:36 Microbiology Microbiology 02/21/21 Blood Culture, Received Pending 02/21/21 Blood Culture, Received Pending Allergies Coded Allergies: bee pollen (Verified Allergy, Severe, stops breathing, 12/27/20) codeine (Verified Allergy, Severe, stopped breathing , 12/27/20) morphine (Verified Allergy, Severe, stopped breathing, 12/27/20) oxycodone (Verified Allergy, Severe, stopped breathing, 12/27/20) atorvastatin (Verified Allergy, Intermediate, hives, 12/27/20) alendronate sodium (Verified Allergy, Unknown, gives her vomiting and diarrhra, 12/27/20) YANET LINDSEY MD Feb 22, 2021 01:10
[2021-02-22] MEDS: FIDAXOMICIN 200 MG TAB (DIFICID) PO SCH ×3 (02:37→20:05)
[2021-02-22] MEDS ORDERED: HOME MED LIST COMPLETE! XX SCH (02:50)
[2021-02-22 04:04] LABS: RSV AMPLIFICATION NEGATIVE (NEGATIVE)
[2021-02-22 06:10] VITALS: BP 125/75
[2021-02-22] MEDS: amLODIPine 5 MG TAB PO SCH (09:00)
[2021-02-22 09:29] LABS: BASO % 0.3 % (0.0-1.0); EOS # 0.1 10^3/uL (0.0-0.5); EOS % 0.9 % (0.0-3.0); LYMPH # 1.9 10^3/uL (1.5-5.0); LYMPH % 32.2 % (24.0-44.0); MEAN CORPUSCULAR HEMOGLOBIN 36.9 pg (27.0-33.0); MEAN CORPUSCULAR HGB CONC 33.2 g/dl (32.0-36.5); MEAN CORPUSCULAR VOLUME 111.1 fl (80.0-96.0); MONO # 0.6 10^3/uL (0.0-0.8); MONO % 9.7 % (2.0-8.0); NEUTROPHILS # 3.3 10^3/uL (1.5-8.5); NEUTROPHILS % 56.7 % (36.0-66.0); PLATELET COUNT, AUTOMATED 196 10^3/uL (150-450); RED BLOOD COUNT 2.79 10^6/uL (4.00-5.40); WHITE BLOOD COUNT 5.8 10^3/uL (4.0-10.0)
[2021-02-22 09:40] LABS: HEMOGLOBIN 10.3 g/dl (12.0-15.5)
[2021-02-22 09:57] LABS: ALBUMIN 1.5 GM/DL (3.2-5.2); ALT/SGPT 28 U/L (12-78); BILIRUBIN,TOTAL 0.7 MG/DL (0.2-1.0); BLOOD UREA NITROGEN 4 MG/DL (7-18); CALCIUM LEVEL 7.5 MG/DL (8.8-10.2); CARBON DIOXIDE LEVEL 26 MEQ/L (21-32); CHLORIDE LEVEL 106 MEQ/L (98-107); GLOMERULAR FILTRATION RATE > 60.0 (>39); GLUCOSE, FASTING 93 MG/DL (70-100); MAGNESIUM LEVEL 1.9 MG/DL (1.8-2.4); POTASSIUM SERUM 3.4 MEQ/L (3.5-5.1); SODIUM LEVEL 137 MEQ/L (136-145); TOTAL PROTEIN 4.9 GM/DL (6.4-8.2)
[2021-02-22] MEDS: FIBER-CON 625 MG TAB PO SCH ×2 (10:21→20:04)
[2021-02-22] MEDS ORDERED: POTASSIUM CHLORIDE 10MEQ SR TABLET PO ONE (11:55)
[2021-02-22] MEDS ORDERED: MAG SULF 1GM/100ML (MAG RUN) 1 GM in IV 1 EA IV ONE (12:05)
[2021-02-22] MEDS: ENOXAPARIN 40MG/0.4ML SYRINGE (J1650 PER 10MG) SC SCH (13:31)
[2021-02-22 14:00] VITALS: BP 103/58
--- NOTE | 2021-02-22 14:10 | IPNPDOC ---
Date Seen The patient was seen on 02/22/21. Progress Note SUBJECTIVE: Chen is a very pleasant 75-year-old female who initially presented to the hospital in the afternoon of 02/21/21 from her PCPs office on recommendation for roughly 20 pound weight loss in the past month with persistent watery diarrhea. Of note, the patient was admitted last month at [facility] for colitis secondary to C. difficile infection. She was discharged on 01/24 but unable to get authorization to obtain her oral vancomycin prescription until 02/01. She completed an 8-day course of the oral vancomycin, ending on 02/08. During administration of the oral Vanco, her appetite improved, she was having regular formed stools. Beginning 02/09 following the lesion of her oral bank prescription, the patient's frequent daily watery bowel movements returned. She now reports having approximately 7 nonbloody watery bowel movements a day. Upon review this morning, patient reports some moderate mid abdominal pain without nausea or vomiting; as well as decreased appetite (this has been present for the past month plus). While documentation states she has had 1 bowel movement since presenting to the ED, she reports this morning that she had for nonbloody watery bowel movements through 11:59 PM on 02/21; she denies any bowel movements since midnight on 02/22. In addition, she denies any current or overnight fever, chills, sweats, chest pain, palpitations, shortness of breath, pleuritic chest pain, dysuria, or hematuria. OBJECTIVE PHYSICAL EXAMINATION: VITAL SIGNS: Please see below. GENERAL: Very pleasant elderly female lying on her left side in bed. She is in no significant acute distress. HEENT: There appears to be some bilateral cheek swelling reminiscent of campos facies. Atraumatic. Oral cavity: Relatively poor dentition. Mildly dry mucous membranes. Neck: There appears to be some nonpainful swelling at the base of the neck bilaterally. There is no appreciated cervical or supraclavicular lymphadenopathy. CARDIOVASCULAR: Regular rate, regular rhythm. There is a roughly 12/6 systolic murmur appreciated best at the right second parasternal intercostal space. RESPIRATORY: Patient does have a raspy voice. There is no visualized accessory muscle use. Breathing room air with symmetric chest expansion. Good respiratory effort with no significant adventitious breath sounds appreciated. ABDOMINAL: Moderately obese with abdominal striae present. There is moderate tenderness of the left upper and left mid abdominal quadrants. Soft and nondistended. There is no guarding or rigidity appreciated. Normoactive bowel sounds throughout. Well-healed incisional scar inferior to the umbilicus. EXTREMITIES: Thinner bilateral lower extremities without pitting edema. 2+ radial pulses. Dry skin of distal lower extremities. NEUROLOGICAL: No gross focal neurologic deficits appreciated. Nondysarthric speech. Responding appropriate all questions and commands. PSYCHOLOGICAL: Pleasant mood. Appropriate pairing affect. LABORATORY DATA, IMAGING STUDIES, MICROBIOLOGY: Please see below. ASSESSMENT AND PLAN: This is a pleasant 75-year-old female with notable past medical history of recent colitis 2/2 C. difficile infection s/p delayed 8-day course of oral vancomycin, HTN, ovarian and uterine cancer, prior COVID-19 infection in January 2021, smoker, and GERD who presented to the [facility] ED on 02/21 from her PCPs office due to roughly 20 pound weight loss over the last month with 2 weeks of frequent nonbloody watery stools. She was admitted primarily for high suspicion for recurrent C. difficile infection and bid Dificid was initiated. #Recurrent and intractable nonbloody frequent watery stools with high suspicion for recurrent C. difficile infection -Admitted in January with colitis 2/2 C. difficile infection -GI panel upon admission was actually negative [id number], including a negative C. difficile toxin A/B result -High suspicion remains for infection due to recent infection; likely presence of C. difficile spores from prior infection remain and are causing symptoms -Patient is currently on day 2 of oral 200 mg bid Dificid dosing -She has had 2 weeks of approximately 7 watery nonbloody bowel movements per day after finishing prior oral vancomycin dose -S/p 8 days of oral vancomycin as outpatient (from ) -Strict intake and output order has been placed to document all bowel movements and voids -No leukocytosis on initial CBC from presentation on 02/21; repeat CBC ordered -CT abdomen/pelvis on 02/21 showed possible duodenitis/gastroenteritis with no focal diverticulitis. -Repeat lactic acid down trended since admission (3.1 initial, repeats 2.3 then 1.6) -Is s/p 1 dose of Unasyn on the evening of 02/21 -Of note, patient reports roughly 20 pound weight loss since discharge last month from prior C. difficile infection; appetite remains poor overall and was only improved when she was on oral vancomycin s/p Lactic acidosis - Has improved with IV fluid hydration #History of macrocytosis without anemia -Initial CBC upon presentation (02/21) showed Hgb WNL; repeat CBC added this morning (02/22) -Patient was seen for initial hematology outpatient appointment on 06/21/20 after having slow rise of MCV with macrocytosis and stable Hgb. At that time, B12 and folate were WNL. -Patient reports drinking 3 cans of beer every day for "many years." She has previously been advised to cease alcohol use. -Most recently, and B12 was elevated at 1757 2 months ago (12/27); folate was WNL -Monitoring daily CBCs #Prior COVID-19 infection -Patient was tested while admitted last month for C. difficile colitis and found to be positive -last positive test was 01/20 -On admission, repeat Covid test was negative on 02/21 #Current smoker -Patient reports smoking approximately 5-6 cigarettes/day and requested a nicotine patch; ordered for 14 mg patch has been placed #Reported history of acid reflux -CT/W IV Protonix that was initiated upon admission #History of hypertension -Blood pressure has remained stable since admission -C/W home amlodipine was continued upon admission #Cushingoid appearance on physical examination -Patient had campos facies with neck base swelling bilaterally with abdominal striae present -Patient reports on questioning that her facial swelling is a new finding. -24-hour urinary cortisol has been ordered to screen for possible hypercortisolism #History of ascending colon tubulovillous adenoma with rare foci of superficial high-grade dysplasia s/p right hemicolectomy #DVT prophylaxis: Switched to Lovenox 40 mg daily SC from mechanical CODE STATUS: Full code Disposition: Discharge is pending improvement clinically in the frequency and nature of BMs I/S/O high suspicion for recurrent C. difficile infection. VS, I&O, 24H, Fishbone Vital Signs/I&O Vital Signs Date Time Temp Pulse Resp B/P (MAP) Pulse Ox O2 Delivery O2 Flow Rate FiO2 02/22/21 06:10 98.5 93 16 125/75 (92) 98 Room Air I&O- Last 24 Hours up to 6 AM 02/22/21 06:00 Intake Total 1000 ml Balance 1000 ml Laboratory Data 24H LABS Laboratory Tests 2 02/21/21 18:27: Immature Granulocyte % (Auto) 0.3, Neutrophils (%) (Auto) 75.1H, Lymphocytes (%) (Auto) 17.1L, Monocytes (%) (Auto) 7.2, Eosinophils (%) (Auto) 0.0, Basophils (%) (Auto) 0.3, Neutrophils # (Auto) 6.9, Lymphocytes # (Auto) 1.6, Monocytes # (Auto) 0.7, Eosinophils # (Auto) 0.0, Basophils # (Auto) 0.0, Nucleated Red Blood Cells % (auto) 0.0, Lactic Acid Level 3.1*H 02/21/21 18:36: Anion Gap 10, Glomerular Filtration Rate > 60.0, Calcium Level 8.5L, Total Bilirubin 1.3H, Direct Bilirubin 0.4H, Aspartate Amino Transf (AST/SGOT) 72H, Alanine Aminotransferase (ALT/SGPT) 39, Alkaline Phosphatase 186H, Total Protein 6.3L, Albumin 2.0L, Albumin/Globulin Ratio 0.5L, Lipase 80 02/22/21 02:02: Lactic Acid Level 2.3*H 02/22/21 02:47: Coronavirus (COVID-19)(PCR) NEGATIVE, Influenza Type A (RT-PCR) NEGATIVE, Influenza Type B (RT-PCR) NEGATIVE, Respiratory Syncytial Virus (PCR) NEGATIVE 02/22/21 09:02: Immature Granulocyte % (Auto) 0.2, Neutrophils (%) (Auto) 56.7, Lymphocytes (%) (Auto) 32.2, Monocytes (%) (Auto) 9.7H, Eosinophils (%) (Auto) 0.9, Basophils (% ) (Auto) 0.3, Neutrophils # (Auto) 3.3, Lymphocytes # (Auto) 1.9, Monocytes # (Auto) 0.6, Eosinophils # (Auto) 0.1, Basophils # (Auto) 0.0, Nucleated Red Blood Cells % (auto) 0.0, Anion Gap 5L, Glomerular Filtration Rate > 60.0, Lactic Acid Followup at 4 Hours 1.6, Calcium Level 7.5L, Magnesium Level 1.9, Total Bilirubin 0.7, Aspartate Amino Transf (AST/SGOT) 49H, Alanine Aminotransferase (ALT/SGPT) 28, Alkaline Phosphatase 140H, Total Protein 4.9#L, Albumin 1.5#L, Albumin/Globulin Ratio 0.4L CBC/BMP Laboratory Tests 02/21/21 18:27 02/21/21 18:36 02/22/21 09:02 Microbiology Microbiology 02/22/21 Gastrointestinal Tract Panel (PCR) - Final, Complete 02/21/21 Blood Culture, Received Pending 02/21/21 Blood Culture, Received Pending GME ATTESTATION GME ATTESTATION My faculty preceptor for this patient encounter was physically present during the encounter and was fully available. All aspects of the patient interview, examination, medical decision making process, and medical care plan development were reviewed and approved by the faculty preceptor. The faculty preceptor is aware and concurs with the plan as stated in the body of this note and will attest to such by his/her cosignature. ATTENDING NOTE I, Miranda Pearce, have independently examined this patient and performed my own physical exam, as well as reviewed the documentation and edited where necessary with the resident. For medical students we have performed the physical exam together and discussed medical decision making and I have verified the history. I have discussed in detail with the resident / student the findings and plan of treatment as documented by the resident / student and edited their note. I agree with their findings and treatment plan and have edited their documentation. I will continue to follow the patient during this hospital stay. CRYSTAL JAMES D.O. Feb 22, 2021 14:10 MIRANDA PEARCE MD Feb 22, 2021 16:13
[2021-02-22] MEDS ORDERED: DIFI200T PO (14:40)
[2021-02-22] MEDS ORDERED: POTASSIUM CHLORIDE 10% LIQ 20 MEQ/15 ML UDC PO ONE (14:50)
[2021-02-22] MEDS: NICOTINE 14 MG/24 HR TRANSDERMAL TD SCH (16:06)
[2021-02-22 22:00] VITALS: BP 93/57
[2021-02-23] MEDS: NS 1,000 ML IV SCH ×2 (01:29→09:13)
[2021-02-23 05:59] VITALS: BP 149/58
[2021-02-23 06:49] LABS: BASO % 0.6 % (0.0-1.0); EOS # 0.1 10^3/uL (0.0-0.5); EOS % 1.4 % (0.0-3.0); HEMATOCRIT 33.5 % (36.0-47.0); HEMOGLOBIN 10.7 g/dl (12.0-15.5); LYMPH # 1.9 10^3/uL (1.5-5.0); LYMPH % 38.2 % (24.0-44.0); MEAN CORPUSCULAR HEMOGLOBIN 36.9 pg (27.0-33.0); MEAN CORPUSCULAR HGB CONC 31.9 g/dl (32.0-36.5); MONO # 0.5 10^3/uL (0.0-0.8); MONO % 9.4 % (2.0-8.0); NEUTROPHILS # 2.5 10^3/uL (1.5-8.5); NEUTROPHILS % 50.2 % (36.0-66.0); PLATELET COUNT, AUTOMATED 158 10^3/uL (150-450); WHITE BLOOD COUNT 4.9 10^3/uL (4.0-10.0)
[2021-02-23 06:58] LABS: MEAN CORPUSCULAR VOLUME 115.5 fl (80.0-96.0)
[2021-02-23 07:00] LABS: BLOOD UREA NITROGEN 3 MG/DL (7-18); CALCIUM LEVEL 7.7 MG/DL (8.8-10.2); CARBON DIOXIDE LEVEL 20 MEQ/L (21-32); CHLORIDE LEVEL 112 MEQ/L (98-107); CREATININE FOR GFR 0.46 MG/DL (0.55-1.30); GLOMERULAR FILTRATION RATE > 60.0 (>39); GLUCOSE, FASTING 87 MG/DL (70-100); POTASSIUM SERUM 3.3 MEQ/L (3.5-5.1); SODIUM LEVEL 139 MEQ/L (136-145)
[2021-02-23] MEDS: amLODIPine 5 MG TAB PO SCH (09:00)
[2021-02-23] MEDS: FIBER-CON 625 MG TAB PO SCH (09:12)
[2021-02-23] MEDS: FIDAXOMICIN 200 MG TAB (DIFICID) PO SCH ×2 (09:12→18:08)
[2021-02-23] MEDS: ENOXAPARIN 40MG/0.4ML SYRINGE (J1650 PER 10MG) SC SCH (09:13)
[2021-02-23] MEDS: NICOTINE 14 MG/24 HR TRANSDERMAL TD SCH (09:13)
[2021-02-23] MEDS ORDERED: AMLO1TAB24 PO (09:52)
[2021-02-23] MEDS ORDERED: FIBE62TA PO (09:52)
[2021-02-23] MEDS ORDERED: POTASSIUM CHLORIDE 10MEQ SR TABLET PO ONE (11:00)
[2021-02-23] MEDS ORDERED: POTASSIUM CHLORIDE 10% LIQ 20 MEQ/15 ML UDC PO ONE (11:15)
--- NOTE | 2021-02-23 12:03 | DS.PDOC ---
Discharge Summary General Date of Admission Feb 22, 2021 at 00:24 Date of Discharge 02/23/2021 Discharge Summary PROCEDURES PERFORMED DURING STAY: [None]. ADMITTING DIAGNOSES / DISCHARGE DIAGNOSES: Nausea / Vomiting / Diarrhea - likely Recurrent C. diff colitis s/p Lactic acidosis Hx of COVID-19 Nicotine dependence HTN Cushingoid appearance on physical examination Hx of Ascending colon tubulovillous adenoma with rare foci of superficial high- grade dysplasia GERD DVT prophylaxis COMPLICATIONS/CHIEF COMPLAINT: Diarrhea HISTORY OF PRESENT ILLNESS: Patient is a 75-year-old female with a PMHx of HTN, DLP, Hx of C. diff colitis (January/2021), Hx of COVID19, Hx of Ovarian / Uterine CA, GERD, who presented to the ER on 02/22 with diarrhea and vomiting. Patient had a recent admission in January 2021 for C. difficile colitis which was treated with vancomycin on discharge, patient was unable to brain picker her vancomycin because of insurance coverage reasons. Ultimately patient was able to pick this up from her primary care provider. After completing course of therapy, patient had recurrence of her C. difficile colitis. Patient was admitted to the hospitalist service for further evaluation and treatment. Patient was seen and examined at the bedside. Currently, she denies any nausea, vomiting, chest pain, shortness breath, palpitations, abdominal pain or any further episodes of diarrhea. Her last bowel movement was yesterday evening. HOSPITAL COURSE: Nausea / Vomiting / Diarrhea - likely Recurrent C. diff colitis - Currently patient reports that she has resolution of her diarrhea - She remains hemodynamically stable and afebrile - No leukocytosis - GI panel noted - Imaging noted below - c/w Fidaxomicin and FiberCon tablets - Was coordinated with PFS to help patient receiv outpatient infusion of Zinplava the to prevent further episodes of C. difficile recurrence s/p Lactic acidosis - Has improved with IV fluid hydration Hx of COVID-19 - She is currently asymptomatic - Last positive on 01/10 Nicotine dependence - Advised smoking cessation - c/w Nicotine patch HTN - BP well controlled - c/w Amlodipine Cushingoid appearance on physical examination - Will have outpatient follow-up with primary care provider for additional workup Hx of Ascending colon tubulovillous adenoma with rare foci of superficial high- grade dysplasia - s/p right hemicolectomy GERD - c/w Protonix DVT prophylaxis - c/w Lovenox DISCHARGE MEDICATIONS: Please see below. ALLERGIES: Please see below. PHYSICAL EXAMINATION ON DISCHARGE: Vitals (See below) General: Lying in bed, no acute distress, comfortable, AAOx3 HEENT: NC, AT CVS: RRR, +S1S2 Lungs: Fair air entry b/l, -w/r/r Abdomen: Soft, ND, NT Extremities: - Edema, - Calf tenderness LABORATORY DATA: Please see below. IMAGING: CT abdomen / pelvis 02/21: 1. Small gastroesophageal sliding type hiatal hernia. Distal esophageal, and gastric and duodenal wall thickening and hyperenhancement, correlate for gastritis and duodenitis. 2. Moderate diverticulosis coli. 3. Moderate right common iliac artery stenosis. Moderate severe distal left common iliac artery stenosis. ACTIVITY: [As tolerated]. DISCHARGE PLAN: Follow-up with primary care provider within the next 7 days Remain compliant with treatment plan and medications Return to the ER if you experience any problems DISPOSITION: Home with services DISCHARGE CONDITION: [Stable]. TIME SPENT ON DISCHARGE: 35 minutes Vital Signs/I&Os Vital Signs Date Time Temp Pulse Resp B/P (MAP) Pulse Ox O2 Delivery O2 Flow Rate FiO2 02/23/21 05:59 98.7 77 18 149/58 (88) 98 Room Air I&O- Last 24 Hours up to 6 AM 02/23/21 06:00 Intake Total 1500 ml Output Total 200 ml Balance 1300 ml Laboratory Data Labs 24H Laboratory Tests 2 02/23/21 06:22: Immature Granulocyte % (Auto) 0.2, Neutrophils (%) (Auto) 50.2, Lymphocytes (%) (Auto) 38.2, Monocytes (%) (Auto) 9.4H, Eosinophils (%) (Auto) 1.4, Basophils (%) (Auto) 0.6, Neutrophils # (Auto) 2.5, Lymphocytes # (Auto) 1.9, Monocytes # (Auto) 0.5, Eosinophils # (Auto) 0.1, Basophils # (Auto) 0.0, Nucleated Red Blood Cells % (auto) 0.0, Anion Gap 7L, Glomerular Filtration Rate > 60.0, Calcium Level 7.7L, Magnesium Level 2.0 CBC/BMP Laboratory Tests 02/23/21 06:22 Microbiology Microbiology 02/23/21 Gastrointestinal Tract Panel (PCR), Ordered Pending 02/22/21 Gastrointestinal Tract Panel (PCR) - Final, Complete 02/21/21 Blood Culture - Preliminary, Resulted No growth after 24 hours . All specim... 02/21/21 Blood Culture - Preliminary, Resulted No growth after 24 hours . All specim... Discharge Medications Scheduled Amlodipine Besylate (Amlodipine Besylate) 5 Mg Tablet, 5 MG PO DAILY Calcium Polycarbophil (Fiber-Lax) 625 Mg Tablet, 2 EA PO BID Fidaxomicin (Dificid) 200 Mg Tablet, 200 MG PO BID Allergies Coded Allergies: bee pollen (Verified Allergy, Severe, stops breathing, 12/27/20) codeine (Verified Allergy, Severe, stopped breathing , 12/27/20) morphine (Verified Allergy, Severe, stopped breathing, 12/27/20) oxycodone (Verified Allergy, Severe, stopped breathing, 12/27/20) atorvastatin (Verified Allergy, Intermediate, hives, 12/27/20) alendronate sodium (Verified Allergy, Unknown, gives her vomiting and diarrhra, 12/27/20) BETHANY PEARCE MD Feb 23, 2021 12:03
[2021-02-23] MEDS ORDERED: DIFI200T PO (12:41)
[2021-02-23 14:00] VITALS: BP 154/80
== END 2021-02-23 18:30 | disposition home health service (06) | DRG 372 ==
LOC: M ED 14:35 → M ED INP 02-22 00:24 → ENRESERV 02-22 04:34 → M MS5PR 02-22 06:03
PROVIDERS: ADMIT Family Medicine; ATTEND Internal Medicine
DX: A04.71 Enterocolitis due to Clostridium difficile, recurrent (principal); E87.2 Acidosis; I10 Essential (primary) hypertension; K21.9 Gastro-esophageal reflux disease without esophagitis; E78.5 Hyperlipidemia, unspecified; Z85.42 Personal history of malignant neoplasm of other parts of uterus; Z85.43 Personal history of malignant neoplasm of ovary; Z86.16 Personal history of COVID-19; Z90.79 Acquired absence of other genital organ(s); Z90.49 Acquired absence of other specified parts of digestive tract; F17.210 Nicotine dependence, cigarettes, uncomplicated; D53.9 Nutritional anemia, unspecified; Z88.5 Allergy status to narcotic agent; Z88.8 Allergy status to other drugs, medicaments and biological substances; Z91.030 Bee allergy status; Z20.822 Contact with and (suspected) exposure to COVID-19; K29.70 Gastritis, unspecified, without bleeding; K29.80 Duodenitis without bleeding

== ENCOUNTER 2021-02-28 09:42 | Outpatient (CLI) | payer OTHER ==
[~2021-02-28] VITALS: Ht 162.6 cm; Wt 59.3 kg
[~2021-02-28 09:42] MED LIST changes: +BEZLOTOXUMAB 600 MG in NS 100 ML IV ONE; +DIFI200T PO; +FIBE62TA PO
[2021-02-28 09:45] VITALS: BP 127/68
[2021-02-28] MEDS ORDERED: BEZLOTOXUMAB 600 MG in NS 100 ML IV ONE (10:00)
[2021-02-28 11:50] VITALS: BP 149/65
== END 2021-02-28 11:50 | disposition home or self-care (01) ==
LOC: M INFU 09:42
PROVIDERS: ATTEND Internal Medicine
DX: A04.72 Enterocolitis due to Clostridium difficile, not specified as recurrent (principal); Z88.5 Allergy status to narcotic agent; Z88.8 Allergy status to other drugs, medicaments and biological substances
CPT/HCPCS: 96365; J0565

== ENCOUNTER 2021-03-09 16:17 | Inpatient (IN) | payer OTHER ==
[~2021-03-09] VITALS: Ht 165.1 cm; Wt 50.0 kg
[~2021-03-09 16:17] MED LIST changes: -BEZLOTOXUMAB 600 MG in NS 100 ML IV ONE
[2021-03-09] MEDS ORDERED: NS 500 ML IV ONE (17:00)
[2021-03-09 17:34] LABS: BASO % 0.4 % (0.0-1.0); EOS % 0.1 % (0.0-3.0); HEMATOCRIT 36.1 % (36.0-47.0); HEMOGLOBIN 12.2 g/dl (12.0-15.5); LYMPH # 1.8 10^3/uL (1.5-5.0); LYMPH % 26.3 % (24.0-44.0); MEAN CORPUSCULAR HEMOGLOBIN 37.5 pg (27.0-33.0); MEAN CORPUSCULAR HGB CONC 33.8 g/dl (32.0-36.5); MEAN CORPUSCULAR VOLUME 111.1 fl (80.0-96.0); MONO # 0.7 10^3/uL (0.0-0.8); MONO % 10.3 % (2.0-8.0); NEUTROPHILS # 4.2 10^3/uL (1.5-8.5); NEUTROPHILS % 62.6 % (36.0-66.0); PLATELET COUNT, AUTOMATED 216 10^3/uL (150-450); RED BLOOD COUNT 3.25 10^6/uL (4.00-5.40); WHITE BLOOD COUNT 6.7 10^3/uL (4.0-10.0)
[2021-03-09 18:05] LABS: ALT/SGPT 36 U/L (12-78); BILIRUBIN,DIRECT 0.2 MG/DL (0.0-0.2); BILIRUBIN,TOTAL 0.7 MG/DL (0.2-1.0); BLOOD UREA NITROGEN 4 MG/DL (7-18); CALCIUM LEVEL 8.3 MG/DL (8.8-10.2); CARBON DIOXIDE LEVEL 28 MEQ/L (21-32); CHLORIDE LEVEL 104 MEQ/L (98-107); CREATININE FOR GFR 0.58 MG/DL (0.55-1.30); GLOMERULAR FILTRATION RATE > 60.0 (>39); GLUCOSE, FASTING 107 MG/DL (70-100); LIPASE 55 U/L (73-393); MAGNESIUM LEVEL 2.1 MG/DL (1.8-2.4); POTASSIUM SERUM 4.4 MEQ/L (3.5-5.1); SODIUM LEVEL 138 MEQ/L (136-145)
[2021-03-09 18:24] LABS: RSV AMPLIFICATION NEGATIVE (NEGATIVE)
[2021-03-09] MEDS ORDERED: ISOVUE-370 76% 100ML VIAL As Ordered ONE (18:39)
--- NOTE | 2021-03-09 19:43 | REPVR ---
PROCEDURE INFORMATION: Exam: CT Abdomen And Pelvis With Contrast Exam date and time: 03/09/2021 6:44 PM Age: 75 years old Clinical indication: Other: Left sided pain; Known c-diff; TECHNIQUE: Imaging protocol: Computed tomography of the abdomen and pelvis with contrast. Radiation optimization: All CT scans at this facility use at least one of these dose optimization techniques: automated exposure control; mA and/or kV adjustment per patient size (includes targeted exams where dose is matched to clinical indication); or iterative reconstruction. Contrast material: ISOVUE 370; Contrast volume: 100 ml; Contrast route: INTRAVENOUS (IV); COMPARISON: CT ABD/PEL W/IV CONTRAST ONLY 02/21/2021 8:28 PM FINDINGS: Lungs: Patchy parenchymal opacities in the medial basal segment the right lower lobe. Findings a stable in comparison to the earlier studies. Liver: There is a diffuse decrease in hepatic parenchymal density, consistent with steatosis. Gallbladder and bile ducts: There has been a cholecystectomy. Pancreas: There is diffuse pancreatic atrophy. Spleen: Normal. No splenomegaly. Adrenal glands: Normal. No mass. Kidneys and ureters: Bilateral simple renal cysts measuring up to 5 mm in the left kidney. No follow-up suggested. Stomach and bowel: Small hiatal hernia. Mild diverticulosis is present in the distal colon. No acute diverticulitis. Changes secondary to resolving diverticulitis demonstrated in the sigmoid colon. Appendix: There has been an appendectomy. Intraperitoneal space: Unremarkable. No free air. No significant fluid collection. Vasculature: The aortoiliac vessels demonstrate moderate atherosclerotic calcification. Lymph nodes: Unremarkable. No enlarged lymph nodes. Urinary bladder: Unremarkable as visualized. Reproductive: There has been a hysterectomy. Bones/joints: Stable compression deformity at T12 in comparison prior studies of 02/21/2021 and 01/20/2021. Earlier examination is not available for review at this time. Mild central spinal stenosis at L2-L3, moderate central spinal stenosis L3-L4, moderate to severe central spinal stenosis L4-L5. Soft tissues: Atrophic changes in the rectus abdominus muscles bilaterally. IMPRESSION: 1. There is a diffuse decrease in hepatic parenchymal density, consistent with steatosis. 2. There has been a cholecystectomy. 3. There is diffuse pancreatic atrophy. 4. There has been a hysterectomy. 5. Mild diverticulosis is present in the distal colon. No acute diverticulitis with CT evidence of resolving diverticulitis demonstrated. COMMENTS: Consistent with the [employer]'s Incidental Findings Committee white paper (J Am Carmen Radiol 2018): Any incidental renal lesion less than 1 cm or classified as too small to characterize, or any incidental cystic renal lesion characterized as simple-appearing, is likely benign. No follow-up imaging is recommended for these lesions per consensus recommendations based on imaging criteria. Electronically signed by: Gregg Mayer On 03/09/2021 19:42:37 PM
[2021-03-09] MEDS ORDERED: HOME MED LIST COMPLETE! XX SCH (20:05)
[2021-03-09] MEDS: NS 1,000 ML IV SCH (20:45)
--- NOTE | 2021-03-09 20:45 | HPEPDOC ---
General Date of Admission Date of Service: Mar 09, 2021 Primary Care Physician: A Attending Physician: MIKEY MAZA MD Chief Complaint The patient is a 75-year-old female admitted with a reason for visit of Diarrhea. Source: Patient Exam Limitations: No limitations Timing/Duration: Other (Since last discharge) Severity: Severe Associated Symptoms: Other (Diarrhea) History of Present Illness 75 years old white female with past medical history of hyperlipidemia, hypertension, GERD, ovarian and uterine cancer, s/p COVID-19 infection was recently treated for recurrent C. difficile infection what is per patient her diarrhea never really stopped and she has more than 10 loose bowel movements with mucus and watery diarrhea every day. According the patient is affecting her quality of life and she is unable to get out of her home and do anything secondary to persistent diarrhea.. Denies chest pain shortness of breath nausea vomiting or abdominal pain Home Medications No Active Prescriptions or Reported Meds Allergies Coded Allergies: bee pollen (Verified Allergy, Severe, stops breathing, 12/27/20) codeine (Verified Allergy, Severe, stopped breathing , 12/27/20) morphine (Verified Allergy, Severe, stopped breathing, 12/27/20) oxycodone (Verified Allergy, Severe, stopped breathing, 12/27/20) atorvastatin (Verified Allergy, Intermediate, hives, 12/27/20) alendronate sodium (Verified Allergy, Unknown, gives her vomiting and diarrhra, 12/27/20) Past Medical History Medical History #1 hyperlipidemia. #2 history of hypertension. #3 GERD. #4 history of ovarian and uterine cancer #5 COVID-19 infection #6 s/p hysterectomy #7 status post cholecystectomy #8 history of brain surgery #9 right hemicolectomy, pathology showed large tubovillous adenoma, with rare foci of superficial high-grade dysplasia Surgical History As above Family History Significant Family History: No pertinent family hx Social History * Smoker: current smoker, other (Smokes 1 pack/day) Alcohol: Denies Drugs: denies A-FIB/CHADSVASC A-FIB History Current/History of A-Fib/PAF?: No Review of Systems Constitutional: Denies: Chills, Fever, Malaise, Night Sweats, Weakness, Fatigue, Weight Loss, Lethargy, Other Eyes: Denies: Pain, Vision change, Conjunctivae inflammation, Eyelid inflammation, Redness, Other ENT: Denies: Head Aches, Ear Pain, Dysphagia, Sinus Congestion, Post Nasal Drip, Sore Throat, Epistaxis, Other Symptoms Skin: Denies: Rash, Lesions, Jaundice, Bruising, Itching, Dry, Breakdown, Nail Changes, Other Pulmonary: Denies: Dyspnea, Cough, Pleuritic Chest Pain, Other Symptoms Cardiovascular: Denies: Chest Pain, Palpitations, Orthopnea, Paroxysmal Noc. Dyspnea, Edema, Lt Headedness, Other Symptoms Gastrointestinal: Reports: Diarrhea Genitourinary: Denies: Dysuria, Frequency, Incontinence, Hematuria, Retention, Other Symptoms Hematologic: Denies: Bruising, Bleeding Excessively, Petecchia, Purpura, Enlarged Lymph Nodes, Other Hematologic Endocrine: Denies: Polydipsia, Polyphagia, Polyuria, Heat Intolerance, Cold Intolerance, Other Endocrine Sx Musculoskeletal: Denies: Neck Pain, Back Pain, Shoulder Pain, Arm Pain, Hand Pain, Leg Pain, Foot Pain, Joint Pain, Muscle Pain, Spasms, Other Symptoms Neurological: Denies: Weakness, Numbness, Incoordination, Change in speech, Confusion, Seizures, Other Symptoms Psych: Denies: Mood Normal, Anxiety, Depression, Memory Issues, Thoughts of Self Harm, Anger, Thoughts of Harming Other, Other Psych Physical Examination General Exam: Positive: Alert Eye Exam: Positive: PERRLA, Conjunctiva & lids normal ENT Exam: Positive: Atraumatic, Mucous membr. moist/pink Neck Exam: Positive: Supple, JVD Chest Exam: Positive: Clear to auscultation, Normal air movement Heart Exam: Positive: Rate Normal, Normal S1, Normal S2 Abdomen Exam: Positive: Normal bowel sounds Extremity Exam: Positive: Other (No clubbing sinus edema) Skin Exam: Positive: Nl turgor and temperature Neuro Exam: Positive: Normal Gait, Normal Speech Psych Exam: Positive: Mental status NL, Mood NL Vital Signs Vital Signs Date Time Temp Pulse Resp B/P (MAP) Pulse Ox O2 Delivery O2 Flow Rate FiO2 03/09/21 16:28 97.7 93 18 137/72 (93) 100 Room Air Laboratory Data Labs 24H Laboratory Tests 2 03/09/21 17:21: Immature Granulocyte % (Auto) 0.3, Neutrophils (%) (Auto) 62.6, Lymphocytes (%) (Auto) 26.3, Monocytes (%) (Auto) 10.3H, Eosinophils (%) (Auto) 0.1, Basophils (%) (Auto) 0.4, Neutrophils # (Auto) 4.2, Lymphocytes # (Auto) 1.8, Monocytes # (Auto) 0.7, Eosinophils # (Auto) 0.0, Basophils # (Auto) 0.0, Nucleated Red Blood Cells % (auto) 0.0, Anion Gap 6L, Glomerular Filtration Rate > 60.0, Lactic Acid Level 2.7*H, Calcium Level 8.3L, Magnesium Level 2.1, Total Bilirubin 0.7, Direct Bilirubin 0.2, Aspartate Amino Transf (AST/SGOT) 63H, Alanine Aminotransferase (ALT/SGPT) 36, Alkaline Phosphatase 175H, Total Protein 6.0L, Albumin 2.0L, Albumin/Globulin Ratio 0.5L, Lipase 55L, Coronavirus (COVID- 19)(PCR) NEGATIVE, Influenza Type A (RT-PCR) NEGATIVE, Influenza Type B (RT-PCR) NEGATIVE, Respiratory Syncytial Virus (PCR) NEGATIVE CBC/BMP Laboratory Tests 03/09/21 17:21 Microbiology Microbiology 03/09/21 Blood Culture, Received Pending Assessment/Plan 75 years old white female with past medical history of hyperlipidemia, hypertension, GERD, ovarian and uterine cancer, s/p COVID-19 infection was recently treated for recurrent C. difficile infection what is per patient her diarrhea never really stopped and she has more than 10 loose bowel movements with mucus and watery diarrhea every day. According the patient is affecting her quality of life and she is unable to get out of her home and do anything secondary to persistent diarrhea.. Denies chest pain shortness of breath nausea vomiting or abdominal pain On examination patient is alert oriented x3 no apparent distress temperature 97.7 heart rate of 93 respirate 18 blood pressure 137/72 and pulse ox 100% on room air WBC count 6.7 hemoglobin 12.2 platelets 216, electrolytes are within normal range lactic acid elevated to 2.7 AST slightly elevated at 63 [facility] with acute on chronic recurrent C. difficile colitis #1 C. 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 difficile antigen in stool to establish diagnosis Also if Fidaxomicin available in our formulary will be started if not patient will be started on p.o. Vanco and IV Flagyl Monitor electrolytes especially potassium phosphate and magnesium and replace as needed Continue all home senior care medications for hypertension and hyperlipidemia Bedside counseling regarding abstinence from smoking was done DVT prophylaxis with Lovenox Problems (1) Recurrent Clostridioides difficile diarrhea Status: Acute Response to Treatment: Worse Problem Specific Plan: Repeat Tests Plan / VTE VTE Prophylaxis Ordered?: Yes MIKEY MAZA MD Mar 09, 2021 20:45
[2021-03-09] MEDS: CHOLESTYRAMINE 4 GM PWD PKT PO SCH (21:00)
[2021-03-09] MEDS ORDERED: FIDAXOMICIN 200 MG TAB (DIFICID) PO SCH (21:00)
[2021-03-09] MEDS: ACETAMINOPHEN TAB 650MG DOSE (2X325MG) PO PRN (22:18)
[2021-03-10 01:20] VITALS: BP 115/49
[2021-03-10] MEDS: NS 1,000 ML IV SCH (04:23)
[2021-03-10 06:00] VITALS: BP 102/66
[2021-03-10] MEDS ORDERED: NICOTINE 7 MG/24 HR TRANSDERMAL TD SCH (06:00)
[2021-03-10] MEDS ORDERED: ONDANSETRON 4MG/2ML VIAL IV PRN (07:35)
[2021-03-10 08:02] LABS: ALBUMIN 1.6 GM/DL (3.2-5.2); ALT/SGPT 27 U/L (12-78); BILIRUBIN,TOTAL 0.5 MG/DL (0.2-1.0); BLOOD UREA NITROGEN 4 MG/DL (7-18); CALCIUM LEVEL 7.3 MG/DL (8.8-10.2); CARBON DIOXIDE LEVEL 26 MEQ/L (21-32); CHLORIDE LEVEL 108 MEQ/L (98-107); CREATININE FOR GFR 0.43 MG/DL (0.55-1.30); GLOMERULAR FILTRATION RATE > 60.0 (>39); GLUCOSE, FASTING 79 MG/DL (70-100); POTASSIUM SERUM 3.4 MEQ/L (3.5-5.1); SODIUM LEVEL 139 MEQ/L (136-145); TOTAL PROTEIN 4.5 GM/DL (6.4-8.2)
[2021-03-10] MEDS ORDERED: POTASSIUM CHLORIDE 10MEQ SR TABLET PO ONE (09:20)
[2021-03-10] MEDS: CHOLESTYRAMINE 4 GM PWD PKT PO SCH ×2 (09:34→20:43)
[2021-03-10] MEDS: ENOXAPARIN 40MG/0.4ML SYRINGE (J1650 PER 10MG) SC SCH (09:35)
[2021-03-10] MEDS: NICOTINE 7 MG/24 HR TRANSDERMAL TD SCH (09:36)
--- NOTE | 2021-03-10 09:39 | IPNPDOC ---
Subjective Date Seen The patient was seen on 03/10/21. Subjective Chief Complaint/HPI Patient reports that she has not had any bowel movements overnight. I have discussed with her about choosing low fiber diet. No fever or chills no abdominal pain. Objective Physical Examination General Exam: Positive: Alert, Cooperative, No Acute Distress Eye Exam: Positive: Conjunctiva & lids normal ENT Exam: Positive: Atraumatic, Mucous membr. moist/pink Neck Exam: Positive: Supple, JVD Chest Exam: Positive: Clear to auscultation, Normal air movement Heart Exam: Positive: Rate Normal, Normal S1, Normal S2 Abdomen Exam: Positive: Soft; Negative: Normal bowel sounds, BS Hyperactive, BS Hypoactive, Tenderness, Mass, Hernia, Other Extremity Exam: Negative: Clubbing, Edema Skin Exam: Positive: Nl turgor and temperature Neuro Exam: Positive: Normal Speech, Strength at 5/5 X4 ext, Normal Tone Psych Exam: Positive: Memory Intact, Oriented x 3 Assessment /Plan Assessment 75-year-old female with a past medical history of recent C. 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 She reports that her usual bowel habits are 4 times per day but it was unmanageable on 03/09/2021 so presented to the emergency room. Intractable diarrhea Did not have any more bowel movements overnight I do not think this is recurrence of C. difficile so have stopped Dificid CT scan shows resolving diverticulitis, pancreatic atrophy, fatty liver, Most likely this is due to something in her diet which worsened her chronic diarrhea. She did report that she had some spaghetti with the pasta sauce. She also reports she likes to have salads and fruits. Started the patient on cholestyramine and Imodium We will also give lactobacillus We will stop IV fluid History of C. difficile colitis Stool was positive for C. difficile on 01/22/2020 1 repeat GI panel on 02/22/2021 was negative Patient finished course of Dificid followed by [facility]. Lactic acidosis Likely from diarrhea and dehydration Resolved with IV fluid. Chronic diarrhea This has been going on since her right hemicolectomy Has history of hypertension However her amlodipine was stopped during one of her prior admissions because of hypotension with syncopal episode Will not restart amlodipine as her blood pressure in the hospital has been low. Stable T12 compression deformity Spinal stenosis /chronic low back pain central spinal canal stenosis in the lumbar region moderate at L3-L4 and severe at L4-L5 levels Hypokalemia Replaced Plan/VTE VTE Prophylaxis Ordered?: Yes VS, I&O, 24H, Fishbone Vital Signs/I&O Vital Signs Date Time Temp Pulse Resp B/P (MAP) Pulse Ox O2 Delivery O2 Flow Rate FiO2 03/10/21 06:00 98.6 90 18 102/66 (78) 95 Room Air I&O- Last 24 Hours up to 6 AM 03/10/21 05:59 Output Total 100 ml Balance -100 ml Laboratory Data 24H LABS Laboratory Tests 2 03/09/21 17:21: Immature Granulocyte % (Auto) 0.3, Neutrophils (%) (Auto) 62.6, Lymphocytes (%) (Auto) 26.3, Monocytes (%) (Auto) 10.3H, Eosinophils (%) (Auto) 0.1, Basophils (%) (Auto) 0.4, Neutrophils # (Auto) 4.2, Lymphocytes # (Auto) 1.8, Monocytes # (Auto) 0.7, Eosinophils # (Auto) 0.0, Basophils # (Auto) 0.0, Nucleated Red Blood Cells % (auto) 0.0, Anion Gap 6L, Glomerular Filtration Rate > 60.0, Lactic Acid Level 2.7*H, Calcium Level 8.3L, Magnesium Level 2.1, Total Bilirubin 0.7, Direct Bilirubin 0.2, Aspartate Amino Transf (AST/SGOT) 63H, Alanine Aminotransferase (ALT/SGPT) 36, Alkaline Phosphatase 175H, Total Protein 6.0L, Albumin 2.0L, Albumin/Globulin Ratio 0.5L, Lipase 55L, Coronavirus (COVID- 19)(PCR) NEGATIVE, Influenza Type A (RT-PCR) NEGATIVE, Influenza Type B (RT-PCR) NEGATIVE, Respiratory Syncytial Virus (PCR) NEGATIVE 03/09/21 21:50: Lactic Acid Followup at 4 Hours 1.4 03/10/21 06:58: Anion Gap 5L, Glomerular Filtration Rate > 60.0, Lactic Acid Level 0.7, Calcium Level 7.3L, Magnesium Level 2.0, Total Bilirubin 0.5, Aspartate Amino Transf (AST/SGOT) 44H, Alanine Aminotransferase (ALT/SGPT) 27, Alkaline Phosphatase 130H, Total Protein 4.5#L, Albumin 1.6L, Albumin/Globulin Ratio 0.6L 03/10/21 07:32: Bedside Glucose (Misc Panel) 84 CBC/BMP Laboratory Tests 03/09/21 17:21 03/10/21 06:58 Microbiology Microbiology 03/09/21 Blood Culture, Received Pending 03/09/21 Blood Culture, Received Pending Bessie Lara MD Mar 10, 2021 09:39
[2021-03-10] MEDS ORDERED: POTASSIUM CHLORIDE 10% LIQ 20 MEQ/15 ML UDC PO ONE (10:05)
[2021-03-10 11:30] LABS: CLOSTRIDIUM DIFFICILE PCR NEGATIVE (NEGATIVE)
[2021-03-10] MEDS: LACTOBACILLUS ACIDOPHILUS CAP (BACID) PO SCH ×3 (13:02→20:43)
[2021-03-10] MEDS: ACETAMINOPHEN TAB 650MG DOSE (2X325MG) PO PRN (13:03)
[2021-03-10 14:00] VITALS: BP 116/61
[2021-03-10] MEDS: LOPERAMIDE 2 MG CAPLET PO PRN (17:26)
[2021-03-10 21:00] VITALS: BP 119/62
[2021-03-11] MEDS: ACETAMINOPHEN TAB 650MG DOSE (2X325MG) PO PRN (00:14)
[2021-03-11 06:33] LABS: BASO % 0.7 % (0.0-1.0); EOS # 0.1 10^3/uL (0.0-0.5); EOS % 1.9 % (0.0-3.0); HEMATOCRIT 29.7 % (36.0-47.0); LYMPH % 46.5 % (24.0-44.0); MEAN CORPUSCULAR HEMOGLOBIN 37.9 pg (27.0-33.0); MEAN CORPUSCULAR HGB CONC 33.3 g/dl (32.0-36.5); MEAN CORPUSCULAR VOLUME 113.8 fl (80.0-96.0); MONO # 0.4 10^3/uL (0.0-0.8); MONO % 9.3 % (2.0-8.0); NEUTROPHILS # 1.8 10^3/uL (1.5-8.5); NEUTROPHILS % 41.4 % (36.0-66.0); PLATELET COUNT, AUTOMATED 184 10^3/uL (150-450); RED BLOOD COUNT 2.61 10^6/uL (4.00-5.40); WHITE BLOOD COUNT 4.3 10^3/uL (4.0-10.0)
[2021-03-11 06:46] LABS: HEMOGLOBIN 9.9 g/dl (12.0-15.5)
[2021-03-11 07:02] LABS: BLOOD UREA NITROGEN 3 MG/DL (7-18); CALCIUM LEVEL 7.9 MG/DL (8.8-10.2); CARBON DIOXIDE LEVEL 25 MEQ/L (21-32); CHLORIDE LEVEL 112 MEQ/L (98-107); CREATININE FOR GFR 0.44 MG/DL (0.55-1.30); GLOMERULAR FILTRATION RATE > 60.0 (>39); GLUCOSE, FASTING 81 MG/DL (70-100); POTASSIUM SERUM 3.7 MEQ/L (3.5-5.1); SODIUM LEVEL 141 MEQ/L (136-145)
[2021-03-11] MEDS: LOPERAMIDE 2 MG CAPLET PO PRN (08:38)
[2021-03-11] MEDS: LACTOBACILLUS ACIDOPHILUS CAP (BACID) PO SCH ×2 (08:38→12:31)
[2021-03-11] MEDS: NICOTINE 7 MG/24 HR TRANSDERMAL TD SCH (08:38)
[2021-03-11] MEDS: ENOXAPARIN 40MG/0.4ML SYRINGE (J1650 PER 10MG) SC SCH (08:38)
[2021-03-11] MEDS: CHOLESTYRAMINE 4 GM PWD PKT PO SCH (08:38)
[2021-03-11] MEDS ORDERED: CHOL4PW PO (10:48)
[2021-03-11] MEDS ORDERED: RISATAB3 PO (10:48)
[2021-03-11] MEDS ORDERED: LOPE2CA PO (10:48)
--- NOTE | 2021-03-11 12:50 | DS.PDOC ---
Discharge Summary General Date of Admission Mar 09, 2021 at 20:45 Date of Discharge 03/11/2021 Attending Physician: ALFONSO CEDILLO MD Discharge Summary PROCEDURES PERFORMED DURING STAY: None ADMITTING DIAGNOSES: Diarrhea DISCHARGE DIAGNOSES: Acute on chronic diarrhea lactic acidosis Dehydration Hypokalemia Hyperlipidemia. History of hypertension. GERD. History of ovarian and uterine cancer Recent COVID-19 infection Recent history of recurrent c.diff infection s/p right hemicolectomy Stable T12 compression deformity, with chronic spinal stenosis /chronic low back pain COMPLICATIONS/CHIEF COMPLAINT: Recurrent Clostridioides Difficile Diarrhea. HISTORY OF PRESENT ILLNESS: 75 years old W with past medical history of hyperlipidemia, hypertension, GERD, ovarian and uterine cancer, s/p recent COVID-19 infection and recent bout of recurrent C. difficile infection who presented to the ED reporting persisting diarrhea that never really stopped and actually got worse reporting 10 loose bowel movements with mucus and watery diarrhea every day to the degree that it was affecting her quality of life and she is unable to get out of her home and do anything secondary to persistent diarrhea. She otherwise denied any chest pain shortness of breath nausea vomiting or abdominal pain. HOSPITAL COURSE: On admission, she was placed on empiric fidaxomicin and IVF for hydration while K was repleted and she was staretd on supportive cholestyramine and immodium. The GI panel was actually negative for C.diff and by day [address] discontinued. The [address] of A/P showed a resolving diverticulitis, pancreatic atrophy and fatty liver. Her diarrhea dramatically improved with imodium and cholestyramine and I am now discharging her home with both medications and close PCP follow up. Of note, she previously completed a fidaxomicin course followed by bezlotoxumab infusion. She also has a history of a R colectomy. She will follow up with her PCP within 7d. DISCHARGE MEDICATIONS: Please see below. ALLERGIES: Please see below. PHYSICAL EXAMINATION ON DISCHARGE: VITAL SIGNS: Please see below. General: Alert, Cooperative, No Acute Distress Eyes: Conjunctiva & lids normal ENTs: Atraumatic, Mucous membr. moist/pink Necks: Supple, no JVD Chest: Clear to auscultation, Normal air movement Heart: Rate Normal, Normal S1, Normal S2 Abdomen: Normoactive bowel sounds, soft, NTND Extremities: no LE edema, WWP Neuro: Normal Speech, Strength at 5/5 X4 ext Psych: Memory Intact, AO x 3 LABORATORY DATA: Please see below. IMAGING: CT A/P: Lungs: Patchy parenchymal opacities in the medial basal segment the right lower lobe. Findings a stable in comparison to the earlier studies. Liver: There is a diffuse decrease in hepatic parenchymal density, consistent with steatosis. Gallbladder and bile ducts: There has been a cholecystectomy. Pancreas: There is diffuse pancreatic atrophy. Spleen: Normal. No splenomegaly. Adrenal glands: Normal. No mass. Kidneys and ureters: Bilateral simple renal cysts measuring up to 5 mm in the left kidney. No follow-up suggested. Stomach and bowel: Small hiatal hernia. Mild diverticulosis is present in the distal colon. No acute diverticulitis. Changes secondary to resolving diverticulitis demonstrated in the sigmoid colon. Appendix: There has been an appendectomy. Intraperitoneal space: Unremarkable. No free air. No significant fluid collection. Vasculature: The aortoiliac vessels demonstrate moderate atherosclerotic calcification. Lymph nodes: Unremarkable. No enlarged lymph nodes. Urinary bladder: Unremarkable as visualized. Reproductive: There has been a hysterectomy. Bones/joints: Stable compression deformity at T12 in comparison prior studies of 02/21/2021 and 01/20/2021. Earlier examination is not available for review at this time. Mild central spinal stenosis at L2-L3, moderate central spinal stenosis L3-L4, moderate to severe central spinal stenosis L4-L5. Soft tissues: Atrophic changes in the rectus abdominus muscles bilaterally. IMPRESSION: 1. There is a diffuse decrease in hepatic parenchymal density, consistent with steatosis. 2. There has been a cholecystectomy. 3. There is diffuse pancreatic atrophy. 4. There has been a hysterectomy. 5. Mild diverticulosis is present in the distal colon. No acute diverticulitis with CT evidence of resolving diverticulitis demonstrated. PROGNOSIS: Good ACTIVITY: As tolerated DIET: regular DISCHARGE PLAN: Home with cholestyramine, PRN Imodium, probiotic and close PCP follow up within 7d. DISPOSITION: Home DISCHARGE INSTRUCTIONS: Home with cholestyramine, PRN Imodium, probiotic and close PCP follow up within 7d. ITEMS TO FOLLOWUP ON ON OUTPATIENT: Acute on chronic diarrhea DISCHARGE CONDITION: Stable TIME SPENT ON DISCHARGE: 31 minutes. Vital Signs/I&Os Vital Signs Date Time Temp Pulse Resp B/P (MAP) Pulse Ox O2 Delivery O2 Flow Rate FiO2 03/10/21 21:00 98.5 83 18 119/62 (81) 98 03/10/21 14:00 Room Air I&O- Last 24 Hours up to 6 AM 03/11/21 06:00 Intake Total 545 ml Output Total 300 ml Balance 245 ml Laboratory Data Labs 24H Laboratory Tests 2 03/11/21 06:17: Immature Granulocyte % (Auto) 0.2, Neutrophils (%) (Auto) 41.4, Lymphocytes (%) (Auto) 46.5H, Monocytes (%) (Auto) 9.3H, Eosinophils (%) (Auto) 1.9, Basophils (%) (Auto) 0.7, Neutrophils # (Auto) 1.8, Lymphocytes # (Auto) 2.0, Monocytes # (Auto) 0.4, Eosinophils # (Auto) 0.1, Basophils # (Auto) 0.0, Nucleated Red Blood Cells % (auto) 0.0, Anion Gap 4L, Glomerular Filtration Rate > 60.0, Calcium Level 7.9L CBC/BMP Laboratory Tests 03/11/21 06:17 Microbiology Microbiology 03/09/21 Blood Culture - Preliminary, Resulted No growth after 24 hours . All specim... 03/09/21 Blood Culture - Preliminary, Resulted No growth after 24 hours . All specim... Discharge Medications Scheduled Cholestyramine (Cholestyramine Packet) 4 Gm Powd.pack, 2 GM PO BID L.acidoph/L.bulg/B.bif/S.therm (Niurka-Bid Caplet) 1 Each Tablet, 1 EA PO [facility] Scheduled PRN Loperamide HCl (Anti-Diarrheal) 2 Mg Tablet, 2 MG PO ASDIRECTED PRN for DIARRHEA Allergies Coded Allergies: bee pollen (Verified Allergy, Severe, stops breathing, 12/27/20) codeine (Verified Allergy, Severe, stopped breathing , 12/27/20) morphine (Verified Allergy, Severe, stopped breathing, 12/27/20) oxycodone (Verified Allergy, Severe, stopped breathing, 12/27/20) atorvastatin (Verified Allergy, Intermediate, hives, 12/27/20) alendronate sodium (Verified Allergy, Unknown, gives her vomiting and diarrhra, 12/27/20) ALFONSO CEDILLO MD Mar 11, 2021 12:50
== END 2021-03-11 13:53 | disposition home or self-care (01) | DRG 392 ==
LOC: EDBD 16:17 → M ED 16:17 → M ED INP 20:45 → M MSPAV 03-10 01:08
PROVIDERS: ADMIT Internal Medicine; ATTEND Internal Medicine
DX: K52.9 Noninfective gastroenteritis and colitis, unspecified (principal); E87.2 Acidosis; E78.5 Hyperlipidemia, unspecified; I10 Essential (primary) hypertension; K21.9 Gastro-esophageal reflux disease without esophagitis; F17.200 Nicotine dependence, unspecified, uncomplicated; E86.0 Dehydration; E87.6 Hypokalemia; M54.50 Low back pain, unspecified; M48.061 Spinal stenosis, lumbar region without neurogenic claudication; Z86.16 Personal history of COVID-19; Z85.43 Personal history of malignant neoplasm of ovary; Z85.42 Personal history of malignant neoplasm of other parts of uterus; Z88.5 Allergy status to narcotic agent; Z88.8 Allergy status to other drugs, medicaments and biological substances; Z91.030 Bee allergy status; Z90.49 Acquired absence of other specified parts of digestive tract; Z20.822 Contact with and (suspected) exposure to COVID-19

== ENCOUNTER 2021-04-04 15:56 | Inpatient (IN) | payer MEDICARE, OTHER ==
[~2021-04-04] VITALS: Ht 165.1 cm; Wt 58.9 kg
[2021-04-04 01:35] VITALS: BP 118/65
[~2021-04-04 15:56] MED LIST changes: +CHOL4PW PO; +LOPE2CA PO; +POTA-151 PO; -POTA20TA6 PO
[2021-04-04] MEDS ORDERED: ONDANSETRON 4MG/2ML VIAL IV ONE (16:30)
[2021-04-04 18:08] LABS: BASO # 0.1 10^3/uL (0.0-0.2); EOS # 0.1 10^3/uL (0.0-0.5); EOS % 1.2 % (0.0-3.0); HEMATOCRIT 35.2 % (36.0-47.0); HEMOGLOBIN 12.3 g/dl (12.0-15.5); LYMPH # 2.1 10^3/uL (1.5-5.0); LYMPH % 41.5 % (24.0-44.0); MEAN CORPUSCULAR HEMOGLOBIN 37.5 pg (27.0-33.0); MEAN CORPUSCULAR HGB CONC 34.9 g/dl (32.0-36.5); MEAN CORPUSCULAR VOLUME 107.3 fl (80.0-96.0); MONO # 0.5 10^3/uL (0.0-0.8); MONO % 9.4 % (2.0-8.0); NEUTROPHILS # 2.4 10^3/uL (1.5-8.5); NEUTROPHILS % 46.7 % (36.0-66.0); PLATELET COUNT, AUTOMATED 159 10^3/uL (150-450); RED BLOOD COUNT 3.28 10^6/uL (4.00-5.40); WHITE BLOOD COUNT 5.1 10^3/uL (4.0-10.0)
[2021-04-04 18:12] LABS: ALBUMIN 1.7 GM/DL (3.2-5.2); ALT/SGPT 55 U/L (12-78); BILIRUBIN,DIRECT 0.2 MG/DL (0.0-0.2); BILIRUBIN,TOTAL 0.8 MG/DL (0.2-1.0); BLOOD UREA NITROGEN 4 MG/DL (7-18); CALCIUM LEVEL 8.2 MG/DL (8.8-10.2); CARBON DIOXIDE LEVEL 25 MEQ/L (21-32); CHLORIDE LEVEL 102 MEQ/L (98-107); CREATININE FOR GFR 0.47 MG/DL (0.55-1.30); GLOMERULAR FILTRATION RATE > 60.0 (>39); GLUCOSE, FASTING 82 MG/DL (70-100); LIPASE 47 U/L (73-393); POTASSIUM SERUM 4.2 MEQ/L (3.5-5.1); SODIUM LEVEL 136 MEQ/L (136-145); TOTAL PROTEIN 5.3 GM/DL (6.4-8.2)
[2021-04-04] MEDS ORDERED: NS 1,000 ML IV ONE (18:25)
[2021-04-04] MEDS ORDERED: ISOVUE-370 76% 100ML VIAL As Ordered ONE (18:38)
[2021-04-04] MEDS ORDERED: ONDA4TAB6 PO (20:46)
[2021-04-04] MEDS ORDERED: ONDANSETRON 4 MG ORAL DISINTEGRATING TAB PO PRN (21:40)
[2021-04-04] MEDS: LR 1,000 ML IV SCH (21:40)
[2021-04-04] MEDS ORDERED: VITMTA PO (21:44)
[2021-04-04] MEDS ORDERED: HOME MED LIST COMPLETE! XX SCH (21:45)
[2021-04-04] MEDS ORDERED: PANTOPRAZOLE 40MG TAB (PROTONIX) PO ONE (21:50)
[2021-04-04 22:36] LABS: APPEARANCE, URINE HAZY (CLEAR); BACTERIA, URINE AUTO NEGATIVE (NEGATIVE); BILIRUBIN, URINE AUTO NEGATIVE (NEGATIVE); BLOOD, URINE BLOOD NEGATIVE (NEGATIVE); COLOR, URINE YELLOW (YELLOW); GLUCOSE, URINE (UA) AUTO NEGATIVE (NEGATIVE); KETONE, URINE AUTO NEGATIVE (NEGATIVE); LEUKOCYTE ESTERASE, URINE AUTO NEGATIVE (NEGATIVE); MUCUS, URINE SMALL (NEGATIVE); NITRITE, URINE AUTO NEGATIVE (NEGATIVE); PROTEIN, URINE AUTO NEGATIVE (NEGATIVE); RBC, URINE AUTO 0 /HPF (0-3); SQUAMOUS EPITHELIAL CELL UR AU 10 /HPF (0-6); WBC, URINE AUTO 3 /HPF (0-3)
[2021-04-04 23:00] LABS: INR 0.97; PROTHROMBIN TIME 13.3 SECONDS (12.7-14.5)
[2021-04-04 23:01] LABS: PARTIAL THROMBOPLASTIN TIME 29.8 SECONDS (25.9-37.0)
[2021-04-05 01:35] VITALS: BP 118/65
[2021-04-05] MEDS ORDERED: NICOTINE 7 MG/24 HR TRANSDERMAL TD PRN (04:50)
[2021-04-05 06:00] VITALS: BP 115/51
[2021-04-05 06:38] LABS: HEMATOCRIT 29.4 % (36.0-47.0); HEMOGLOBIN 10.4 g/dl (12.0-15.5); MEAN CORPUSCULAR HEMOGLOBIN 37.8 pg (27.0-33.0); MEAN CORPUSCULAR HGB CONC 35.4 g/dl (32.0-36.5); MEAN CORPUSCULAR VOLUME 106.9 fl (80.0-96.0); PLATELET COUNT, AUTOMATED 129 10^3/uL (150-450); RED BLOOD COUNT 2.75 10^6/uL (4.00-5.40); WHITE BLOOD COUNT 5.6 10^3/uL (4.0-10.0)
[2021-04-05 06:50] LABS: BLOOD UREA NITROGEN 6 MG/DL (7-18); CALCIUM LEVEL 7.5 MG/DL (8.8-10.2); CARBON DIOXIDE LEVEL 27 MEQ/L (21-32); CHLORIDE LEVEL 104 MEQ/L (98-107); CREATININE FOR GFR 0.53 MG/DL (0.55-1.30); GLOMERULAR FILTRATION RATE > 60.0 (>39); GLUCOSE, FASTING 92 MG/DL (70-100); MAGNESIUM LEVEL 2.1 MG/DL (1.8-2.4); SODIUM LEVEL 136 MEQ/L (136-145)
[2021-04-05] MEDS: LACTOBACILLUS ACIDOPHILUS CAP (BACID) PO SCH (08:51)
[2021-04-05] MEDS: PANTOPRAZOLE 40MG TAB (PROTONIX) PO SCH (08:51)
[2021-04-05] MEDS: ENOXAPARIN 40MG/0.4ML SYRINGE (J1650 PER 10MG) SC SCH (08:52)
[2021-04-05 09:33] LABS: FOLATE 15.2 NG/ML (>5.4)
[2021-04-05 09:35] LABS: VITAMIN B12 LEVEL > 2000 PG/ML (247-911)
[2021-04-05 09:47] LABS: HEPATITIS B SURFACE ANTIGEN NEGATIVE (NEGATIVE)
[2021-04-05 10:13] LABS: HEPATITIS B CORE ANTIBODY IGM NEGATIVE (NEGATIVE); HEPATITIS C VIRUS ABY INDEX < 0.0 INDEX (<0.8)
[2021-04-05] MEDS: LR 1,000 ML IV SCH (11:15)
[2021-04-05 11:45] LABS: ALBUMIN 1.5 GM/DL (3.2-5.2); BILIRUBIN,DIRECT 0.5 MG/DL (0.0-0.2); BILIRUBIN,TOTAL 1.1 MG/DL (0.2-1.0); TOTAL PROTEIN 4.8 GM/DL (6.4-8.2)
[2021-04-05 14:00] VITALS: BP 117/52
[2021-04-05] MEDS: ACETAMINOPHEN TAB 650MG DOSE (2X325MG) PO PRN (15:56)
[2021-04-05 22:00] VITALS: BP 115/54
[2021-04-06] MEDS: LR 1,000 ML IV SCH (00:05)
[2021-04-06 05:50] LABS: EOS # 0.1 10^3/uL (0.0-0.5); HEMATOCRIT 27.6 % (36.0-47.0); HEMOGLOBIN 9.5 g/dl (12.0-15.5); LYMPH # 1.8 10^3/uL (1.5-5.0); LYMPH % 45.1 % (24.0-44.0); MEAN CORPUSCULAR HEMOGLOBIN 36.8 pg (27.0-33.0); MEAN CORPUSCULAR HGB CONC 34.4 g/dl (32.0-36.5); MONO # 0.5 10^3/uL (0.0-0.8); MONO % 12.8 % (2.0-8.0); NEUTROPHILS # 1.5 10^3/uL (1.5-8.5); NEUTROPHILS % 38.8 % (36.0-66.0); PLATELET COUNT, AUTOMATED 118 10^3/uL (150-450); RED BLOOD COUNT 2.58 10^6/uL (4.00-5.40)
[2021-04-06 06:00] VITALS: BP 115/56
[2021-04-06 06:16] LABS: ALBUMIN 1.5 GM/DL (3.2-5.2); ALT/SGPT 44 U/L (12-78); BILIRUBIN,TOTAL 1.1 MG/DL (0.2-1.0); BLOOD UREA NITROGEN 5 MG/DL (7-18); CALCIUM LEVEL 7.6 MG/DL (8.8-10.2); CARBON DIOXIDE LEVEL 25 MEQ/L (21-32); CHLORIDE LEVEL 109 MEQ/L (98-107); CREATININE FOR GFR 0.48 MG/DL (0.55-1.30); GLOMERULAR FILTRATION RATE > 60.0 (>39); GLUCOSE, FASTING 81 MG/DL (70-100); POTASSIUM SERUM 3.5 MEQ/L (3.5-5.1); SODIUM LEVEL 139 MEQ/L (136-145); TOTAL PROTEIN 4.5 GM/DL (6.4-8.2)
[2021-04-06] MEDS: PANTOPRAZOLE 40MG TAB (PROTONIX) PO SCH (08:06)
[2021-04-06] MEDS: LACTOBACILLUS ACIDOPHILUS CAP (BACID) PO SCH (08:06)
[2021-04-06] MEDS: ENOXAPARIN 40MG/0.4ML SYRINGE (J1650 PER 10MG) SC SCH (08:07)
[2021-04-06] MEDS: ACETAMINOPHEN TAB 650MG DOSE (2X325MG) PO PRN (12:39)
[2021-04-06 14:00] VITALS: BP 114/54
[2021-04-06 20:04] VITALS: BP 111/68
[2021-04-07 04:38] LABS: EOS # 0.1 10^3/uL (0.0-0.5); EOS % 1.4 % (0.0-3.0); HEMATOCRIT 30.2 % (36.0-47.0); HEMOGLOBIN 10.4 g/dl (12.0-15.5); LYMPH # 1.7 10^3/uL (1.5-5.0); LYMPH % 39.5 % (24.0-44.0); MEAN CORPUSCULAR HEMOGLOBIN 37.7 pg (27.0-33.0); MEAN CORPUSCULAR HGB CONC 34.4 g/dl (32.0-36.5); MEAN CORPUSCULAR VOLUME 109.4 fl (80.0-96.0); MONO # 0.5 10^3/uL (0.0-0.8); MONO % 12.9 % (2.0-8.0); NEUTROPHILS # 1.9 10^3/uL (1.5-8.5); NEUTROPHILS % 44.7 % (36.0-66.0); PLATELET COUNT, AUTOMATED 128 10^3/uL (150-450); RED BLOOD COUNT 2.76 10^6/uL (4.00-5.40); WHITE BLOOD COUNT 4.2 10^3/uL (4.0-10.0)
[2021-04-07 04:59] LABS: ALBUMIN 1.6 GM/DL (3.2-5.2); ALT/SGPT 39 U/L (12-78); BILIRUBIN,TOTAL 1.2 MG/DL (0.2-1.0); BLOOD UREA NITROGEN 4 MG/DL (7-18); CALCIUM LEVEL 7.7 MG/DL (8.8-10.2); CARBON DIOXIDE LEVEL 26 MEQ/L (21-32); CHLORIDE LEVEL 105 MEQ/L (98-107); CREATININE FOR GFR 0.54 MG/DL (0.55-1.30); GLOMERULAR FILTRATION RATE > 60.0 (>39); GLUCOSE, FASTING 87 MG/DL (70-100); MAGNESIUM LEVEL 1.9 MG/DL (1.8-2.4); POTASSIUM SERUM 3.3 MEQ/L (3.5-5.1); SODIUM LEVEL 138 MEQ/L (136-145); TOTAL PROTEIN 5.1 GM/DL (6.4-8.2)
[2021-04-07 06:42] VITALS: BP 112/48
[2021-04-07] MEDS ORDERED: POTASSIUM CHLORIDE 10MEQ SR TABLET PO ONE (07:05)
[2021-04-07] MEDS: PANTOPRAZOLE 40MG TAB (PROTONIX) PO SCH (08:46)
[2021-04-07] MEDS: LACTOBACILLUS ACIDOPHILUS CAP (BACID) PO SCH (08:46)
[2021-04-07] MEDS: ENOXAPARIN 40MG/0.4ML SYRINGE (J1650 PER 10MG) SC SCH (08:47)
[2021-04-07] MEDS ORDERED: POTASSIUM CHLORIDE 10% LIQ 20 MEQ/15 ML UDC PO ONE (09:15)
[2021-04-07] MEDS: GASTROGRAFIN SOLUTION 30ML PO SCH ×2 (10:49→11:16)
[2021-04-07] MEDS ORDERED: ISOVUE-370 76% 100ML VIAL As Ordered ONE (10:51)
[2021-04-07 14:00] VITALS: BP 110/46
[2021-04-07 20:32] VITALS: BP 111/49
[2021-04-07] MEDS: ACETAMINOPHEN TAB 650MG DOSE (2X325MG) PO PRN (21:37)
[2021-04-08 06:00] VITALS: BP 129/80
[2021-04-08] MEDS: LACTOBACILLUS ACIDOPHILUS CAP (BACID) PO SCH (08:04)
[2021-04-08] MEDS: PANTOPRAZOLE 40MG TAB (PROTONIX) PO SCH (08:04)
[2021-04-08] MEDS: ENOXAPARIN 40MG/0.4ML SYRINGE (J1650 PER 10MG) SC SCH (08:05)
[2021-04-08 11:33] LABS: BASO % 0.6 % (0.0-1.0); EOS # 0.1 10^3/uL (0.0-0.5); HEMATOCRIT 29.4 % (36.0-47.0); HEMOGLOBIN 10.1 g/dl (12.0-15.5); LYMPH % 40.2 % (24.0-44.0); MEAN CORPUSCULAR HEMOGLOBIN 37.3 pg (27.0-33.0); MEAN CORPUSCULAR HGB CONC 34.4 g/dl (32.0-36.5); MEAN CORPUSCULAR VOLUME 108.5 fl (80.0-96.0); MONO # 0.5 10^3/uL (0.0-0.8); MONO % 10.9 % (2.0-8.0); NEUTROPHILS # 2.3 10^3/uL (1.5-8.5); NEUTROPHILS % 47.1 % (36.0-66.0); PLATELET COUNT, AUTOMATED 117 10^3/uL (150-450); RED BLOOD COUNT 2.71 10^6/uL (4.00-5.40); WHITE BLOOD COUNT 4.9 10^3/uL (4.0-10.0)
[2021-04-08 12:24] LABS: ALBUMIN 1.5 GM/DL (3.2-5.2); ALT/SGPT 39 U/L (12-78); BILIRUBIN,TOTAL 0.8 MG/DL (0.2-1.0); BLOOD UREA NITROGEN 4 MG/DL (7-18); CALCIUM LEVEL 7.8 MG/DL (8.8-10.2); CARBON DIOXIDE LEVEL 25 MEQ/L (21-32); CHLORIDE LEVEL 106 MEQ/L (98-107); CREATININE FOR GFR 0.46 MG/DL (0.55-1.30); GLOMERULAR FILTRATION RATE > 60.0 (>39); GLUCOSE, FASTING 87 MG/DL (70-100); MAGNESIUM LEVEL 1.9 MG/DL (1.8-2.4); POTASSIUM SERUM 4.1 MEQ/L (3.5-5.1); SODIUM LEVEL 135 MEQ/L (136-145); TOTAL PROTEIN 4.9 GM/DL (6.4-8.2)
[2021-04-08] MEDS ORDERED: FURO20TA2 PO ×2 (14:27→16:39)
[2021-04-08] MEDS ORDERED: PANT40TA29 PO (14:27)
[2021-04-08] MEDS ORDERED: RISATAB3 PO (14:27)
[2021-04-08] MEDS ORDERED: FUROSEMIDE 20MG/2ML VIAL (J1940) IV ONE (15:00)
[2021-04-08] MEDS ORDERED: FUROSEMIDE 20 MG TAB PO ONE (15:10)
[2021-04-08] MEDS ORDERED: CHOL4PW PO (16:31)
[2021-04-08] MEDS ORDERED: CHOLESTYRAMINE 4 GM PWD PKT PO ONE (17:15)
[2021-04-08] MEDS ORDERED: POTA1TAB24 PO (18:24)
[2021-04-09] MEDS ORDERED: FUROSEMIDE 20 MG TAB PO SCH (09:00)
[2021-04-09 20:07] LABS: Methylmalonic Acid 344 nmol/L (0-378)
== END 2021-04-08 17:29 | disposition home health service (06) | DRG 392 ==
LOC: M ED 15:56 → M ED INP 15:57 → ENRESERV 04-05 01:18 → M MS5PR 04-05 01:33 → OBSVTOIN 04-05 16:46
PROVIDERS: ADMIT Internal Medicine; ATTEND Internal Medicine
DX: K52.9 Noninfective gastroenteritis and colitis, unspecified (principal); J90 Pleural effusion, not elsewhere classified; M48.54XA Collapsed vertebra, not elsewhere classified, thoracic region, initial encounter for fracture; F17.210 Nicotine dependence, cigarettes, uncomplicated; Z85.038 Personal history of other malignant neoplasm of large intestine; Z85.3 Personal history of malignant neoplasm of breast; Z85.42 Personal history of malignant neoplasm of other parts of uterus; Z90.49 Acquired absence of other specified parts of digestive tract; Z90.710 Acquired absence of both cervix and uterus; Z79.899 Other long term (current) drug therapy; Z88.5 Allergy status to narcotic agent; Z88.8 Allergy status to other drugs, medicaments and biological substances; Z91.030 Bee allergy status; R74.8 Abnormal levels of other serum enzymes

== ENCOUNTER 2021-04-15 15:37 | Emergency (ER) | payer MEDICARE ==
[~2021-04-15] VITALS: Ht 162.6 cm; Wt 45.5 kg
[~2021-04-15 15:37] MED LIST changes: +FURO20TA2 PO; +ONDA4TAB6 PO; +PANT40TA29 PO; +POTA1TAB24 PO
[2021-04-15 15:44] VITALS: BP 103/52
== END 2021-04-15 17:57 | disposition left against medical advice (07) ==
LOC: EDBD 15:37 → M ED 15:37
DX: R19.7 Diarrhea, unspecified (principal); R10.9 Unspecified abdominal pain; Z53.9 Procedure and treatment not carried out, unspecified reason; I10 Essential (primary) hypertension; K21.9 Gastro-esophageal reflux disease without esophagitis; I25.2 Old myocardial infarction; E78.5 Hyperlipidemia, unspecified; Z85.42 Personal history of malignant neoplasm of other parts of uterus; Z85.038 Personal history of other malignant neoplasm of large intestine; Z90.49 Acquired absence of other specified parts of digestive tract; Z90.710 Acquired absence of both cervix and uterus; Z79.899 Other long term (current) drug therapy; Z88.5 Allergy status to narcotic agent; Z88.6 Allergy status to analgesic agent; Z88.8 Allergy status to other drugs, medicaments and biological substances

== ENCOUNTER 2021-04-28 11:58 | Inpatient (IN) | payer MEDICARE ==
[~2021-04-28] VITALS: Ht 162.6 cm; Wt 57.3 kg
[2021-04-28] MEDS ORDERED: KETOROLAC 30 MG/ML 1ML VIAL IV ONE (13:20)
[2021-04-28 13:53] LABS: BASO % 0.4 % (0.0-1.0); EOS % 0.1 % (0.0-3.0); HEMATOCRIT 35.4 % (36.0-47.0); HEMOGLOBIN 12.4 g/dl (12.0-15.5); LYMPH # 1.6 10^3/uL (1.5-5.0); LYMPH % 23.1 % (24.0-44.0); MEAN CORPUSCULAR HEMOGLOBIN 37.5 pg (27.0-33.0); MEAN CORPUSCULAR VOLUME 106.9 fl (80.0-96.0); MONO # 0.6 10^3/uL (0.0-0.8); MONO % 9.1 % (2.0-8.0); NEUTROPHILS # 4.7 10^3/uL (1.5-8.5); PLATELET COUNT, AUTOMATED 176 10^3/uL (150-450); RED BLOOD COUNT 3.31 10^6/uL (4.00-5.40); WHITE BLOOD COUNT 7.1 10^3/uL (4.0-10.0)
[2021-04-28 14:42] LABS: ALT/SGPT 39 U/L (12-78); BILIRUBIN,DIRECT 0.6 MG/DL (0.0-0.2); BILIRUBIN,TOTAL 1.6 MG/DL (0.2-1.0); BLOOD UREA NITROGEN 3 MG/DL (7-18); CALCIUM LEVEL 8.3 MG/DL (8.8-10.2); CARBON DIOXIDE LEVEL 25 MEQ/L (21-32); CHLORIDE LEVEL 101 MEQ/L (98-107); CREATININE FOR GFR 0.66 MG/DL (0.55-1.30); GLOMERULAR FILTRATION RATE > 60.0 (>39); GLUCOSE, FASTING 121 MG/DL (70-100); LIPASE 81 U/L (73-393); POTASSIUM SERUM 4.4 MEQ/L (3.5-5.1); SODIUM LEVEL 137 MEQ/L (136-145); TOTAL PROTEIN 6.1 GM/DL (6.4-8.2)
[2021-04-28] MEDS ORDERED: ISOVUE-370 76% 100ML VIAL As Ordered ONE (14:52)
[2021-04-28] MEDS ORDERED: NS 500 ML IV ONE (16:30)
[2021-04-28] MEDS ORDERED: CHOL100013 PO (16:58)
[2021-04-28] MEDS ORDERED: HOME MED LIST COMPLETE! XX SCH (17:00)
[2021-04-28] MEDS: NS 1,000 ML IV SCH (17:15)
[2021-04-28] MEDS ORDERED: NS 1,000 ML IV ONE (17:45)
[2021-04-28 21:00] VITALS: BP 115/58
[2021-04-28] MEDS: FIDAXOMICIN 200 MG TAB (DIFICID) PO SCH (22:21)
[2021-04-28] MEDS ORDERED: ONDANSETRON 4 MG ORAL DISINTEGRATING TAB PO PRN (22:45)
[2021-04-28] MEDS: ONDANSETRON 4MG/2ML VIAL IV PRN (23:06)
[2021-04-29] MEDS: NS 1,000 ML IV SCH (01:02)
[2021-04-29 06:00] VITALS: BP 103/58
[2021-04-29] MEDS ORDERED: CIPROFLOXACIN 500MG TABLET PO SCH (06:00)
[2021-04-29 06:27] LABS: BASO % 0.6 % (0.0-1.0); EOS % 0.6 % (0.0-3.0); LYMPH # 1.8 10^3/uL (1.5-5.0); LYMPH % 35.8 % (24.0-44.0); MEAN CORPUSCULAR HEMOGLOBIN 37.8 pg (27.0-33.0); MEAN CORPUSCULAR HGB CONC 34.8 g/dl (32.0-36.5); MEAN CORPUSCULAR VOLUME 108.4 fl (80.0-96.0); MONO # 0.5 10^3/uL (0.0-0.8); MONO % 10.9 % (2.0-8.0); NEUTROPHILS # 2.6 10^3/uL (1.5-8.5); NEUTROPHILS % 51.5 % (36.0-66.0); PLATELET COUNT, AUTOMATED 147 10^3/uL (150-450); RED BLOOD COUNT 2.49 10^6/uL (4.00-5.40)
[2021-04-29 06:40] LABS: HEMOGLOBIN 9.4 g/dl (12.0-15.5)
[2021-04-29 06:56] LABS: ALBUMIN 1.4 GM/DL (3.2-5.2); ALT/SGPT 30 U/L (12-78); BILIRUBIN,TOTAL 1.1 MG/DL (0.2-1.0); BLOOD UREA NITROGEN 4 MG/DL (7-18); CALCIUM LEVEL 7.1 MG/DL (8.8-10.2); CARBON DIOXIDE LEVEL 24 MEQ/L (21-32); CHLORIDE LEVEL 105 MEQ/L (98-107); CREATININE FOR GFR 0.39 MG/DL (0.55-1.30); GLOMERULAR FILTRATION RATE > 60.0 (>39); GLUCOSE, FASTING 85 MG/DL (70-100); MAGNESIUM LEVEL 1.9 MG/DL (1.8-2.4); PHOSPHORUS LEVEL 2.3 MG/DL (2.5-4.9); POTASSIUM SERUM 3.3 MEQ/L (3.5-5.1); SODIUM LEVEL 137 MEQ/L (136-145); TOTAL PROTEIN 4.7 GM/DL (6.4-8.2)
[2021-04-29] MEDS: K-PHOS ORIGINAL (POT.ACID PHOSPHATE) 500MG TAB PO SCH ×2 (08:35→23:16)
[2021-04-29] MEDS: POTASSIUM CHLORIDE 10MEQ SR TABLET PO ONE ×2 (08:35→08:45)
[2021-04-29] MEDS: ENOXAPARIN 40MG/0.4ML SYRINGE (J1650 PER 10MG) SC SCH (08:35)
[2021-04-29] MEDS: LACTOBACILLUS ACIDOPHILUS CAP (BACID) PO SCH (08:35)
[2021-04-29] MEDS: FIDAXOMICIN 200 MG TAB (DIFICID) PO SCH (08:35)
[2021-04-29 14:00] VITALS: BP 128/56
[2021-04-29] MEDS ORDERED: metroNIDAZOLE (FLAGYL) 500MG TABLET PO SCH (14:00)
[2021-04-29] MEDS ORDERED: ACETAMINOPHEN TAB 650MG DOSE (2X325MG) PO ONE (14:20)
[2021-04-29 16:12] LABS: PERCENT SATURATION 84.3 % (13.2-45.0)
[2021-04-29 16:33] LABS: TOTAL 25(OH) VITAMIN D 39.1 NG/ML (30.0-100.0)
[2021-04-29 16:34] LABS: FOLATE 8.7 NG/ML (>5.4)
[2021-04-29] MEDS: VANCOMYCIN ORAL SOL 250MG/5ML ORAL SYRINGE PO SCH ×2 (18:03→23:16)
[2021-04-29 20:48] VITALS: BP 107/62
[2021-04-30 05:39] VITALS: BP 115/72
[2021-04-30] MEDS: VANCOMYCIN ORAL SOL 250MG/5ML ORAL SYRINGE PO SCH ×4 (06:03→23:53)
[2021-04-30 07:13] LABS: HEMATOCRIT 27.4 % (36.0-47.0); HEMOGLOBIN 9.3 g/dl (12.0-15.5); MEAN CORPUSCULAR HEMOGLOBIN 36.8 pg (27.0-33.0); MEAN CORPUSCULAR HGB CONC 33.9 g/dl (32.0-36.5); MEAN CORPUSCULAR VOLUME 108.3 fl (80.0-96.0); PLATELET COUNT, AUTOMATED 144 10^3/uL (150-450); RED BLOOD COUNT 2.53 10^6/uL (4.00-5.40)
[2021-04-30 07:49] LABS: BLOOD UREA NITROGEN 3 MG/DL (7-18); CALCIUM LEVEL 7.6 MG/DL (8.8-10.2); CARBON DIOXIDE LEVEL 24 MEQ/L (21-32); CHLORIDE LEVEL 106 MEQ/L (98-107); CREATININE FOR GFR 0.51 MG/DL (0.55-1.30); GLOMERULAR FILTRATION RATE > 60.0 (>39); GLUCOSE, FASTING 83 MG/DL (70-100); MAGNESIUM LEVEL 1.8 MG/DL (1.8-2.4); PHOSPHORUS LEVEL 2.4 MG/DL (2.5-4.9); POTASSIUM SERUM 2.9 MEQ/L (3.5-5.1); SODIUM LEVEL 139 MEQ/L (136-145)
[2021-04-30] MEDS: LACTOBACILLUS ACIDOPHILUS CAP (BACID) PO SCH (08:38)
[2021-04-30] MEDS: POTASSIUM CHLORIDE 10MEQ SR TABLET PO SCH ×2 (08:38→11:44)
[2021-04-30] MEDS: KCL 10MEQ/100ML SWI (KRUN) 10 MEQ in IV 1 EA IV SCH ×2 (08:39→10:03)
[2021-04-30] MEDS: ENOXAPARIN 40MG/0.4ML SYRINGE (J1650 PER 10MG) SC SCH (08:39)
[2021-04-30 14:00] VITALS: BP 135/67
[2021-04-30 14:44] LABS: BLOOD UREA NITROGEN 3 MG/DL (7-18); CALCIUM LEVEL 7.7 MG/DL (8.8-10.2); CARBON DIOXIDE LEVEL 23 MEQ/L (21-32); CHLORIDE LEVEL 108 MEQ/L (98-107); CREATININE FOR GFR 0.46 MG/DL (0.55-1.30); GLOMERULAR FILTRATION RATE > 60.0 (>39); GLUCOSE, FASTING 95 MG/DL (70-100); SODIUM LEVEL 139 MEQ/L (136-145)
[2021-04-30 22:00] VITALS: BP 117/60
[2021-05-01] MEDS: VANCOMYCIN ORAL SOL 250MG/5ML ORAL SYRINGE PO SCH ×3 (05:44→18:26)
[2021-05-01 06:00] VITALS: BP 120/60
[2021-05-01 07:18] LABS: BLOOD UREA NITROGEN 2 MG/DL (7-18); CALCIUM LEVEL 7.7 MG/DL (8.8-10.2); CARBON DIOXIDE LEVEL 24 MEQ/L (21-32); CHLORIDE LEVEL 107 MEQ/L (98-107); CREATININE FOR GFR 0.46 MG/DL (0.55-1.30); GLOMERULAR FILTRATION RATE > 60.0 (>39); GLUCOSE, FASTING 82 MG/DL (70-100); MAGNESIUM LEVEL 1.8 MG/DL (1.8-2.4); PHOSPHORUS LEVEL 2.1 MG/DL (2.5-4.9); SODIUM LEVEL 138 MEQ/L (136-145)
[2021-05-01] MEDS: ENOXAPARIN 40MG/0.4ML SYRINGE (J1650 PER 10MG) SC SCH ×2 (09:00→10:39)
[2021-05-01] MEDS: LACTOBACILLUS ACIDOPHILUS CAP (BACID) PO SCH (09:22)
[2021-05-01] MEDS ORDERED: ACETAMINOPHEN TAB 650MG DOSE (2X325MG) PO ONE (11:40)
[2021-05-01] MEDS: K-PHOS ORIGINAL (POT.ACID PHOSPHATE) 500MG TAB PO SCH ×2 (11:56→21:42)
[2021-05-01 14:00] VITALS: BP 122/59
[2021-05-01 22:00] VITALS: BP 122/72
[2021-05-02] MEDS: VANCOMYCIN ORAL SOL 250MG/5ML ORAL SYRINGE PO SCH ×4 (00:49→18:25)
[2021-05-02 06:00] VITALS: BP 128/71
[2021-05-02 06:56] LABS: HEMATOCRIT 30.8 % (36.0-47.0); HEMOGLOBIN 10.5 g/dl (12.0-15.5); MEAN CORPUSCULAR HEMOGLOBIN 37.8 pg (27.0-33.0); MEAN CORPUSCULAR HGB CONC 34.1 g/dl (32.0-36.5); MEAN CORPUSCULAR VOLUME 110.8 fl (80.0-96.0); PLATELET COUNT, AUTOMATED 145 10^3/uL (150-450); RED BLOOD COUNT 2.78 10^6/uL (4.00-5.40); WHITE BLOOD COUNT 5.6 10^3/uL (4.0-10.0)
[2021-05-02 07:24] LABS: BLOOD UREA NITROGEN 2 MG/DL (7-18); CALCIUM LEVEL 7.9 MG/DL (8.8-10.2); CARBON DIOXIDE LEVEL 23 MEQ/L (21-32); CHLORIDE LEVEL 107 MEQ/L (98-107); CREATININE FOR GFR 0.51 MG/DL (0.55-1.30); GLOMERULAR FILTRATION RATE > 60.0 (>39); GLUCOSE, FASTING 83 MG/DL (70-100); MAGNESIUM LEVEL 1.9 MG/DL (1.8-2.4); PHOSPHORUS LEVEL 2.9 MG/DL (2.5-4.9); POTASSIUM SERUM 3.9 MEQ/L (3.5-5.1); SODIUM LEVEL 137 MEQ/L (136-145)
[2021-05-02] MEDS: K-PHOS ORIGINAL (POT.ACID PHOSPHATE) 500MG TAB PO SCH (09:34)
[2021-05-02] MEDS: ENOXAPARIN 40MG/0.4ML SYRINGE (J1650 PER 10MG) SC SCH (09:34)
[2021-05-02] MEDS: LACTOBACILLUS ACIDOPHILUS CAP (BACID) PO SCH (09:34)
[2021-05-02] MEDS: ONDANSETRON 4MG/2ML VIAL IV PRN (13:46)
[2021-05-02 15:00] VITALS: BP 141/91
[2021-05-02] MEDS ORDERED: FUROSEMIDE 20 MG TAB PO ONE (15:55)
[2021-05-02 22:00] VITALS: BP_SYST 87; BP_SYST 88; BP_DIAS 59; BP_DIAS 60
[2021-05-02 23:59] VITALS: BP 116/50
[2021-05-03] MEDS: K-PHOS ORIGINAL (POT.ACID PHOSPHATE) 500MG TAB PO SCH (00:07)
[2021-05-03] MEDS: NICOTINE 14 MG/24 HR TRANSDERMAL TD PRN ×2 (00:07→21:52)
[2021-05-03] MEDS: VANCOMYCIN ORAL SOL 250MG/5ML ORAL SYRINGE PO SCH ×4 (00:07→17:49)
[2021-05-03] MEDS: ACETAMINOPHEN TAB 650MG DOSE (2X325MG) PO PRN ×3 (00:08→17:48)
[2021-05-03] MEDS ORDERED: PREPARATION H OINTMENT (HEMORRHOID) PR PRN (00:35)
[2021-05-03 06:00] VITALS: BP 128/70
[2021-05-03 06:03] LABS: HEMATOCRIT 25.2 % (36.0-47.0); HEMOGLOBIN 8.8 g/dl (12.0-15.5); MEAN CORPUSCULAR HEMOGLOBIN 37.9 pg (27.0-33.0); MEAN CORPUSCULAR HGB CONC 34.9 g/dl (32.0-36.5); MEAN CORPUSCULAR VOLUME 108.6 fl (80.0-96.0); PLATELET COUNT, AUTOMATED 136 10^3/uL (150-450); RED BLOOD COUNT 2.32 10^6/uL (4.00-5.40)
[2021-05-03 06:32] LABS: BLOOD UREA NITROGEN 2 MG/DL (7-18); CALCIUM LEVEL 7.5 MG/DL (8.8-10.2); CARBON DIOXIDE LEVEL 25 MEQ/L (21-32); CHLORIDE LEVEL 106 MEQ/L (98-107); GLOMERULAR FILTRATION RATE > 60.0 (>39); GLUCOSE, FASTING 80 MG/DL (70-100); MAGNESIUM LEVEL 1.6 MG/DL (1.8-2.4); PHOSPHORUS LEVEL 3.2 MG/DL (2.5-4.9); SODIUM LEVEL 136 MEQ/L (136-145)
[2021-05-03] MEDS ORDERED: POTASSIUM CHLORIDE 10MEQ SR TABLET PO ONE ×2 (07:30→16:15)
[2021-05-03] MEDS: MAG SULF 1GM/100ML (MAG RUN) 1 GM in IV 1 EA IV SCH ×2 (08:33→09:50)
[2021-05-03 08:45] VITALS: BP 134/64
[2021-05-03] MEDS: LACTOBACILLUS ACIDOPHILUS CAP (BACID) PO SCH (09:32)
[2021-05-03] MEDS: ENOXAPARIN 40MG/0.4ML SYRINGE (J1650 PER 10MG) SC SCH (09:32)
[2021-05-03] MEDS: KCL 10MEQ/100ML SWI (KRUN) 10 MEQ in IV 1 EA IV SCH ×4 (12:00→13:29)
[2021-05-03 14:00] VITALS: BP 132/66
[2021-05-03] MEDS ORDERED: ONDANSETRON 4 MG TAB PO PRN (17:35)
[2021-05-03] MEDS ORDERED: MAALOX 30 ML SUSP *UDC PO ONE (18:00)
[2021-05-03] MEDS: FAMOTIDINE 20 MG TAB PO SCH (21:52)
[2021-05-04] MEDS: VANCOMYCIN ORAL SOL 250MG/5ML ORAL SYRINGE PO SCH ×4 (00:49→17:29)
[2021-05-04 06:00] VITALS: BP 130/56
[2021-05-04 07:56] LABS: HEMATOCRIT 28.2 % (36.0-47.0); HEMOGLOBIN 9.8 g/dl (12.0-15.5); MEAN CORPUSCULAR HEMOGLOBIN 38.4 pg (27.0-33.0); MEAN CORPUSCULAR HGB CONC 34.8 g/dl (32.0-36.5); MEAN CORPUSCULAR VOLUME 110.6 fl (80.0-96.0); PLATELET COUNT, AUTOMATED 160 10^3/uL (150-450); RED BLOOD COUNT 2.55 10^6/uL (4.00-5.40); WHITE BLOOD COUNT 4.7 10^3/uL (4.0-10.0)
[2021-05-04] MEDS: FAMOTIDINE 20 MG TAB PO SCH ×2 (09:37→20:36)
[2021-05-04] MEDS: ENOXAPARIN 40MG/0.4ML SYRINGE (J1650 PER 10MG) SC SCH (09:38)
[2021-05-04] MEDS: LACTOBACILLUS ACIDOPHILUS CAP (BACID) PO SCH (09:39)
[2021-05-04 10:05] LABS: BLOOD UREA NITROGEN 2 MG/DL (7-18); CALCIUM LEVEL 7.7 MG/DL (8.8-10.2); CARBON DIOXIDE LEVEL 26 MEQ/L (21-32); CHLORIDE LEVEL 107 MEQ/L (98-107); CREATININE FOR GFR 0.44 MG/DL (0.55-1.30); GLOMERULAR FILTRATION RATE > 60.0 (>39); GLUCOSE, FASTING 75 MG/DL (70-100); MAGNESIUM LEVEL 2.2 MG/DL (1.8-2.4); PHOSPHORUS LEVEL 3.3 MG/DL (2.5-4.9); POTASSIUM SERUM 3.5 MEQ/L (3.5-5.1); SODIUM LEVEL 140 MEQ/L (136-145)
[2021-05-04] MEDS: ACETAMINOPHEN TAB 650MG DOSE (2X325MG) PO PRN (13:05)
[2021-05-04] MEDS ORDERED: POTASSIUM CHLORIDE 10MEQ SR TABLET PO ONE (15:50)
[2021-05-04] MEDS: NICOTINE 14 MG/24 HR TRANSDERMAL TD PRN (20:36)
[2021-05-05] MEDS: VANCOMYCIN ORAL SOL 250MG/5ML ORAL SYRINGE PO SCH ×3 (00:06→12:43)
[2021-05-05 06:00] VITALS: BP 123/58
[2021-05-05] MEDS: LACTOBACILLUS ACIDOPHILUS CAP (BACID) PO SCH (08:53)
[2021-05-05] MEDS: FAMOTIDINE 20 MG TAB PO SCH (08:53)
[2021-05-05] MEDS: ENOXAPARIN 40MG/0.4ML SYRINGE (J1650 PER 10MG) SC SCH (08:53)
[2021-05-05] MEDS ORDERED: FIRV50SO PO (11:40)
[2021-05-05] MEDS ORDERED: FAMO20TA PO (11:40)
[2021-05-05] MEDS ORDERED: RISATAB3 PO (11:40)
[2021-05-05] MEDS ORDERED: NICO14PA TD (11:40)
[2021-05-05 12:30] LABS: ALBUMIN 1.8 GM/DL (3.2-5.2); ALT/SGPT 25 U/L (12-78); BILIRUBIN,DIRECT 0.5 MG/DL (0.0-0.2); BILIRUBIN,TOTAL 0.8 MG/DL (0.2-1.0); BLOOD UREA NITROGEN 2 MG/DL (7-18); CALCIUM LEVEL 8.1 MG/DL (8.8-10.2); CARBON DIOXIDE LEVEL 26 MEQ/L (21-32); CHLORIDE LEVEL 106 MEQ/L (98-107); CREATININE FOR GFR 0.64 MG/DL (0.55-1.30); GLOMERULAR FILTRATION RATE > 60.0 (>39); GLUCOSE, FASTING 95 MG/DL (70-100); LIPASE 113 U/L (73-393); MAGNESIUM LEVEL 1.9 MG/DL (1.8-2.4); PHOSPHORUS LEVEL 3.2 MG/DL (2.5-4.9); POTASSIUM SERUM 3.5 MEQ/L (3.5-5.1); SODIUM LEVEL 139 MEQ/L (136-145); TOTAL PROTEIN 5.1 GM/DL (6.4-8.2)
[2021-05-05 12:54] LABS: HEPATITIS B SURFACE ANTIGEN NEGATIVE (NEGATIVE)
[2021-05-05 13:21] LABS: HEPATITIS B CORE ANTIBODY IGM NEGATIVE (NEGATIVE); HEPATITIS C VIRUS ABY INDEX 0.1 INDEX (<0.8)
== END 2021-05-05 14:19 | disposition home health service (06) | DRG 373 ==
LOC: M ED 11:58 → M ED INP 17:13 → ENRESERV 19:12 → M MSPAV 21:10
PROVIDERS: ADMIT Internal Medicine; ATTEND Internal Medicine
DX: A04.71 Enterocolitis due to Clostridium difficile, recurrent (principal); I10 Essential (primary) hypertension; E78.5 Hyperlipidemia, unspecified; K21.9 Gastro-esophageal reflux disease without esophagitis; Z85.038 Personal history of other malignant neoplasm of large intestine; K76.0 Fatty (change of) liver, not elsewhere classified; Z85.3 Personal history of malignant neoplasm of breast; Z85.42 Personal history of malignant neoplasm of other parts of uterus; Z90.49 Acquired absence of other specified parts of digestive tract; Z90.710 Acquired absence of both cervix and uterus; F17.210 Nicotine dependence, cigarettes, uncomplicated; Z91.030 Bee allergy status; Z88.5 Allergy status to narcotic agent; Z88.8 Allergy status to other drugs, medicaments and biological substances; D53.9 Nutritional anemia, unspecified; K57.30 Diverticulosis of large intestine without perforation or abscess without bleeding

== ENCOUNTER 2021-05-20 13:34 | Inpatient (IN) | payer MEDICARE ==
[~2021-05-20] VITALS: Ht 162.6 cm; Wt 58.0 kg
[~2021-05-20 13:34] MED LIST changes: +CHOL100013 PO; +FAMO20TA PO; +NICO14PA TD
[2021-05-20] MEDS ORDERED: NS 1,000 ML IV ONE (14:40)
[2021-05-20 15:45] LABS: BASO % 0.5 % (0.0-1.0); EOS % 0.5 % (0.0-3.0); HEMATOCRIT 28.7 % (36.0-47.0); HEMOGLOBIN 9.9 g/dl (12.0-15.5); MEAN CORPUSCULAR HEMOGLOBIN 37.5 pg (27.0-33.0); MEAN CORPUSCULAR HGB CONC 34.5 g/dl (32.0-36.5); MEAN CORPUSCULAR VOLUME 108.7 fl (80.0-96.0); MONO # 0.6 10^3/uL (0.0-0.8); MONO % 10.3 % (2.0-8.0); NEUTROPHILS # 3.3 10^3/uL (1.5-8.5); NEUTROPHILS % 54.5 % (36.0-66.0); PLATELET COUNT, AUTOMATED 176 10^3/uL (150-450); RED BLOOD COUNT 2.64 10^6/uL (4.00-5.40)
[2021-05-20 16:25] LABS: ALBUMIN 1.7 GM/DL (3.2-5.2); ALT/SGPT 30 U/L (12-78); BILIRUBIN,DIRECT 0.4 MG/DL (0.0-0.2); BILIRUBIN,TOTAL 0.6 MG/DL (0.2-1.0); BLOOD UREA NITROGEN 2 MG/DL (7-18); CALCIUM LEVEL 8.1 MG/DL (8.8-10.2); CARBON DIOXIDE LEVEL 25 MEQ/L (21-32); CHLORIDE LEVEL 98 MEQ/L (98-107); CREATININE FOR GFR 0.46 MG/DL (0.55-1.30); GLOMERULAR FILTRATION RATE > 60.0 (>39); GLUCOSE, FASTING 90 MG/DL (70-100); LIPASE 80 U/L (73-393); POTASSIUM SERUM 2.7 MEQ/L (3.5-5.1); SODIUM LEVEL 138 MEQ/L (136-145); TOTAL PROTEIN 5.1 GM/DL (6.4-8.2)
[2021-05-20] MEDS: NS 1,000 ML IV SCH (16:59)
[2021-05-20] MEDS: POTASSIUM CHLORIDE 10MEQ SR TABLET PO ONE ×2 (17:40→18:57)
[2021-05-20] MEDS ORDERED: FAMO1TAB11 PO (19:09)
[2021-05-20] MEDS ORDERED: POTASSIUM CHLORIDE 10% LIQ 20 MEQ/15 ML UDC PO ONE (19:10)
[2021-05-20] MEDS ORDERED: FIRV50SO PO (19:11)
[2021-05-20] MEDS ORDERED: ACET1TAB55 PO (19:12)
[2021-05-20] MEDS ORDERED: HOME MED LIST COMPLETE! XX SCH (19:15)
[2021-05-20 20:47] LABS: RSV AMPLIFICATION NEGATIVE (NEGATIVE)
[2021-05-20] MEDS: FAMOTIDINE 20 MG TAB PO SCH (21:51)
[2021-05-20 22:31] LABS: BLOOD UREA NITROGEN 2 MG/DL (7-18); CALCIUM LEVEL 7.7 MG/DL (8.8-10.2); CARBON DIOXIDE LEVEL 27 MEQ/L (21-32); CHLORIDE LEVEL 104 MEQ/L (98-107); GLOMERULAR FILTRATION RATE > 60.0 (>39); GLUCOSE, FASTING 93 MG/DL (70-100); MAGNESIUM LEVEL 1.9 MG/DL (1.8-2.4); POTASSIUM SERUM 3.6 MEQ/L (3.5-5.1); SODIUM LEVEL 138 MEQ/L (136-145)
[2021-05-21] MEDS: NS 1,000 ML IV SCH ×2 (00:40→10:40)
[2021-05-21] MEDS: VANCOMYCIN ORAL SOL 250MG/5ML ORAL SYRINGE PO SCH ×4 (01:14→19:08)
[2021-05-21] MEDS: ENOXAPARIN 40MG/0.4ML SYRINGE (J1650 PER 10MG) SC SCH (08:21)
[2021-05-21] MEDS: FAMOTIDINE 20 MG TAB PO SCH ×2 (08:21→20:30)
[2021-05-21 10:47] LABS: HEMATOCRIT 27.2 % (36.0-47.0); HEMOGLOBIN 9.4 g/dl (12.0-15.5); MEAN CORPUSCULAR HEMOGLOBIN 37.6 pg (27.0-33.0); MEAN CORPUSCULAR HGB CONC 34.6 g/dl (32.0-36.5); MEAN CORPUSCULAR VOLUME 108.8 fl (80.0-96.0); PLATELET COUNT, AUTOMATED 175 10^3/uL (150-450); WHITE BLOOD COUNT 6.5 10^3/uL (4.0-10.0)
[2021-05-21 11:15] LABS: BLOOD UREA NITROGEN 2 MG/DL (7-18); CALCIUM LEVEL 7.1 MG/DL (8.8-10.2); CARBON DIOXIDE LEVEL 27 MEQ/L (21-32); CHLORIDE LEVEL 107 MEQ/L (98-107); CREATININE FOR GFR 0.59 MG/DL (0.55-1.30); GLOMERULAR FILTRATION RATE > 60.0 (>39); GLUCOSE, FASTING 115 MG/DL (70-100); POTASSIUM SERUM 3.6 MEQ/L (3.5-5.1); SODIUM LEVEL 141 MEQ/L (136-145)
[2021-05-21] MEDS: FIBER-CON 625 MG TAB PO SCH (20:30)
[2021-05-21 22:00] VITALS: BP 125/75
[2021-05-22] MEDS: NS 1,000 ML IV SCH ×2 (00:33→13:07)
[2021-05-22] MEDS: VANCOMYCIN ORAL SOL 250MG/5ML ORAL SYRINGE PO SCH ×4 (00:33→18:44)
[2021-05-22 06:00] VITALS: BP 125/74
[2021-05-22 06:20] LABS: HEMATOCRIT 27.2 % (36.0-47.0); HEMOGLOBIN 9.4 g/dl (12.0-15.5); MEAN CORPUSCULAR HEMOGLOBIN 37.5 pg (27.0-33.0); MEAN CORPUSCULAR HGB CONC 34.6 g/dl (32.0-36.5); MEAN CORPUSCULAR VOLUME 108.4 fl (80.0-96.0); PLATELET COUNT, AUTOMATED 161 10^3/uL (150-450); RED BLOOD COUNT 2.51 10^6/uL (4.00-5.40); WHITE BLOOD COUNT 5.9 10^3/uL (4.0-10.0)
[2021-05-22 06:47] LABS: BLOOD UREA NITROGEN 2 MG/DL (7-18); CARBON DIOXIDE LEVEL 25 MEQ/L (21-32); CHLORIDE LEVEL 108 MEQ/L (98-107); CREATININE FOR GFR 0.53 MG/DL (0.55-1.30); GLOMERULAR FILTRATION RATE > 60.0 (>39); GLUCOSE, FASTING 95 MG/DL (70-100); POTASSIUM SERUM 3.1 MEQ/L (3.5-5.1); SODIUM LEVEL 138 MEQ/L (136-145)
[2021-05-22] MEDS ORDERED: POTASSIUM CHLORIDE 10MEQ SR TABLET PO ONE (07:25)
[2021-05-22] MEDS: FIBER-CON 625 MG TAB PO SCH ×2 (09:54→21:18)
[2021-05-22] MEDS: FAMOTIDINE 20 MG TAB PO SCH ×2 (09:54→21:18)
[2021-05-22 14:00] VITALS: BP_SYST 127; BP_SYST 94; BP_DIAS 52; BP_DIAS 73
[2021-05-22] MEDS: SIMETHICONE 80MG CHEW TAB PO PRN (14:10)
[2021-05-22] MEDS: ACETAMINOPHEN TAB 650MG DOSE (2X325MG) PO PRN ×2 (14:10→21:28)
[2021-05-22] MEDS: ENOXAPARIN 40MG/0.4ML SYRINGE (J1650 PER 10MG) SC SCH (14:11)
[2021-05-22] MEDS: NICOTINE 14 MG/24 HR TRANSDERMAL TD PRN (14:19)
[2021-05-22 21:20] VITALS: BP 140/70
[2021-05-23] MEDS: VANCOMYCIN ORAL SOL 250MG/5ML ORAL SYRINGE PO SCH ×4 (00:42→18:14)
[2021-05-23] MEDS: NS 1,000 ML IV SCH (02:44)
[2021-05-23 05:59] LABS: HEMATOCRIT 28.9 % (36.0-47.0); HEMOGLOBIN 10.1 g/dl (12.0-15.5); MEAN CORPUSCULAR HEMOGLOBIN 37.7 pg (27.0-33.0); MEAN CORPUSCULAR HGB CONC 34.9 g/dl (32.0-36.5); MEAN CORPUSCULAR VOLUME 107.8 fl (80.0-96.0); PLATELET COUNT, AUTOMATED 157 10^3/uL (150-450); RED BLOOD COUNT 2.68 10^6/uL (4.00-5.40); WHITE BLOOD COUNT 4.6 10^3/uL (4.0-10.0)
[2021-05-23 06:00] VITALS: BP 149/72
[2021-05-23 06:30] LABS: BLOOD UREA NITROGEN 1 MG/DL (7-18); CALCIUM LEVEL 7.2 MG/DL (8.8-10.2); CARBON DIOXIDE LEVEL 23 MEQ/L (21-32); CHLORIDE LEVEL 112 MEQ/L (98-107); CREATININE FOR GFR 0.37 MG/DL (0.55-1.30); GLOMERULAR FILTRATION RATE > 60.0 (>39); GLUCOSE, FASTING 84 MG/DL (70-100); POTASSIUM SERUM 2.9 MEQ/L (3.5-5.1); SODIUM LEVEL 142 MEQ/L (136-145)
[2021-05-23] MEDS: KCL 10MEQ/100ML SWI (KRUN) 10 MEQ in IV 1 EA IV SCH ×2 (06:55→09:27)
[2021-05-23] MEDS ORDERED: POTASSIUM CHLORIDE 10MEQ SR TABLET PO ONE ×2 (07:00→17:50)
[2021-05-23] MEDS: FIBER-CON 625 MG TAB PO SCH (09:23)
[2021-05-23] MEDS: FAMOTIDINE 20 MG TAB PO SCH ×2 (09:23→20:15)
[2021-05-23] MEDS: ACETAMINOPHEN TAB 650MG DOSE (2X325MG) PO PRN (09:24)
[2021-05-23] MEDS: ENOXAPARIN 40MG/0.4ML SYRINGE (J1650 PER 10MG) SC SCH (09:24)
[2021-05-23 10:39] LABS: MAGNESIUM LEVEL 1.7 MG/DL (1.8-2.4); NT-PRO BNP 4337 PG/ML (<450)
[2021-05-23] MEDS: NICOTINE 14 MG/24 HR TRANSDERMAL TD PRN (11:24)
[2021-05-23 12:32] LABS: BLOOD UREA NITROGEN 1 MG/DL (7-18); CARBON DIOXIDE LEVEL 21 MEQ/L (21-32); CHLORIDE LEVEL 112 MEQ/L (98-107); CREATININE FOR GFR 0.41 MG/DL (0.55-1.30); GLOMERULAR FILTRATION RATE > 60.0 (>39); GLUCOSE, FASTING 88 MG/DL (70-100); POTASSIUM SERUM 3.4 MEQ/L (3.5-5.1); SODIUM LEVEL 139 MEQ/L (136-145)
[2021-05-23 14:00] VITALS: BP 128/58
[2021-05-23] MEDS ORDERED: MAG SULF 1GM/100ML (MAG RUN) 1 GM in IV 1 EA IV ONE (18:00)
[2021-05-23] MEDS: FIDAXOMICIN 200 MG TAB (DIFICID) PO SCH (20:16)
[2021-05-23 22:00] VITALS: BP 134/84
[2021-05-24 06:00] VITALS: BP 147/70
[2021-05-24 08:09] LABS: HEMATOCRIT 28.1 % (36.0-47.0); HEMOGLOBIN 9.8 g/dl (12.0-15.5); MEAN CORPUSCULAR HEMOGLOBIN 37.3 pg (27.0-33.0); MEAN CORPUSCULAR HGB CONC 34.9 g/dl (32.0-36.5); MEAN CORPUSCULAR VOLUME 106.8 fl (80.0-96.0); PLATELET COUNT, AUTOMATED 153 10^3/uL (150-450); RED BLOOD COUNT 2.63 10^6/uL (4.00-5.40); WHITE BLOOD COUNT 5.1 10^3/uL (4.0-10.0)
[2021-05-24 08:32] LABS: BLOOD UREA NITROGEN 1 MG/DL (7-18); CALCIUM LEVEL 7.5 MG/DL (8.8-10.2); CARBON DIOXIDE LEVEL 23 MEQ/L (21-32); CHLORIDE LEVEL 112 MEQ/L (98-107); CREATININE FOR GFR 0.37 MG/DL (0.55-1.30); GLOMERULAR FILTRATION RATE > 60.0 (>39); GLUCOSE, FASTING 90 MG/DL (70-100); POTASSIUM SERUM 3.5 MEQ/L (3.5-5.1); SODIUM LEVEL 140 MEQ/L (136-145)
[2021-05-24] MEDS: FAMOTIDINE 20 MG TAB PO SCH ×2 (09:31→20:19)
[2021-05-24] MEDS: ENOXAPARIN 40MG/0.4ML SYRINGE (J1650 PER 10MG) SC SCH (09:31)
[2021-05-24] MEDS: FIDAXOMICIN 200 MG TAB (DIFICID) PO SCH ×2 (09:31→20:19)
[2021-05-24] MEDS: ACETAMINOPHEN TAB 650MG DOSE (2X325MG) PO PRN (10:53)
[2021-05-24 14:00] VITALS: BP 140/73
[2021-05-24] MEDS ORDERED: ONDANSETRON 4MG/2ML VIAL IV PRN (16:20)
[2021-05-24] MEDS: SIMETHICONE 80MG CHEW TAB PO PRN (17:40)
[2021-05-24 21:09] VITALS: BP 133/69
[2021-05-25 06:00] VITALS: BP 145/75
[2021-05-25] MEDS: ENOXAPARIN 40MG/0.4ML SYRINGE (J1650 PER 10MG) SC SCH (08:29)
[2021-05-25] MEDS: FAMOTIDINE 20 MG TAB PO SCH ×2 (08:29→19:58)
[2021-05-25] MEDS: FIDAXOMICIN 200 MG TAB (DIFICID) PO SCH (08:29)
[2021-05-25 09:00] LABS: HEMATOCRIT 26.3 % (36.0-47.0); HEMOGLOBIN 9.3 g/dl (12.0-15.5); MEAN CORPUSCULAR HEMOGLOBIN 38.8 pg (27.0-33.0); MEAN CORPUSCULAR HGB CONC 35.4 g/dl (32.0-36.5); MEAN CORPUSCULAR VOLUME 109.6 fl (80.0-96.0); PLATELET COUNT, AUTOMATED 151 10^3/uL (150-450); WHITE BLOOD COUNT 4.1 10^3/uL (4.0-10.0)
[2021-05-25 09:22] LABS: BLOOD UREA NITROGEN 1 MG/DL (7-18); CALCIUM LEVEL 7.6 MG/DL (8.8-10.2); CARBON DIOXIDE LEVEL 26 MEQ/L (21-32); CHLORIDE LEVEL 111 MEQ/L (98-107); CREATININE FOR GFR 0.29 MG/DL (0.55-1.30); GLOMERULAR FILTRATION RATE > 60.0 (>39); GLUCOSE, FASTING 76 MG/DL (70-100); POTASSIUM SERUM 3.5 MEQ/L (3.5-5.1); SODIUM LEVEL 142 MEQ/L (136-145)
[2021-05-25 14:00] VITALS: BP 140/68
[2021-05-25] MEDS ORDERED: POLYETHYLENE GLYCOL (MIRALAX) 238GM BOTTLE PO ONE (19:00)
[2021-05-25] MEDS: SIMETHICONE 80MG CHEW TAB PO PRN (19:58)
[2021-05-25 20:21] VITALS: BP 156/67
[2021-05-26] VITALS (7 sets, daily range): BP systolic 124–155; BP diastolic 59–72
[2021-05-26] MEDS ORDERED: POLYETHYLENE GLYCOL (MIRALAX) 238GM BOTTLE PO ONE (05:00)
[2021-05-26 08:25] LABS: HEMATOCRIT 28.2 % (36.0-47.0); HEMOGLOBIN 9.6 g/dl (12.0-15.5); MEAN CORPUSCULAR HEMOGLOBIN 37.9 pg (27.0-33.0); MEAN CORPUSCULAR VOLUME 111.5 fl (80.0-96.0); PLATELET COUNT, AUTOMATED 145 10^3/uL (150-450); RED BLOOD COUNT 2.53 10^6/uL (4.00-5.40); WHITE BLOOD COUNT 4.4 10^3/uL (4.0-10.0)
[2021-05-26 08:46] LABS: BLOOD UREA NITROGEN 1 MG/DL (7-18); CALCIUM LEVEL 7.8 MG/DL (8.8-10.2); CARBON DIOXIDE LEVEL 27 MEQ/L (21-32); CHLORIDE LEVEL 109 MEQ/L (98-107); CREATININE FOR GFR 0.46 MG/DL (0.55-1.30); GLOMERULAR FILTRATION RATE > 60.0 (>39); GLUCOSE, FASTING 90 MG/DL (70-100); POTASSIUM SERUM 3.2 MEQ/L (3.5-5.1); SODIUM LEVEL 140 MEQ/L (136-145)
[2021-05-26] MEDS: ENOXAPARIN 40MG/0.4ML SYRINGE (J1650 PER 10MG) SC SCH (09:00)
[2021-05-26] MEDS: FAMOTIDINE 20 MG TAB PO SCH ×2 (09:17→20:18)
[2021-05-26] MEDS: SIMETHICONE 80MG CHEW TAB PO PRN (09:24)
[2021-05-26] MEDS ORDERED: FECAL MICROBIOTA PREPARATION 250 ML BTL (J3590) XX ONE (13:00)
[2021-05-26] MEDS ORDERED: POTASSIUM CHLORIDE 10MEQ SR TABLET PO ONE (13:20)
[2021-05-26] MEDS ORDERED: propofoL 200 MG/20 ML VIAL As Ordered ONE (15:49)
[2021-05-26] MEDS ORDERED: LIDOCAINE 2% 100MG/5ML SDV (FOR ANES.) As Ordered ONE (15:49)
[2021-05-27 06:32] VITALS: BP 131/59
[2021-05-27 06:45] LABS: HEMATOCRIT 26.3 % (36.0-47.0); MEAN CORPUSCULAR HEMOGLOBIN 37.5 pg (27.0-33.0); MEAN CORPUSCULAR HGB CONC 34.2 g/dl (32.0-36.5); MEAN CORPUSCULAR VOLUME 109.6 fl (80.0-96.0); PLATELET COUNT, AUTOMATED 145 10^3/uL (150-450); WHITE BLOOD COUNT 4.2 10^3/uL (4.0-10.0)
[2021-05-27 07:19] LABS: BLOOD UREA NITROGEN 2 MG/DL (7-18); CALCIUM LEVEL 7.6 MG/DL (8.8-10.2); CARBON DIOXIDE LEVEL 26 MEQ/L (21-32); CHLORIDE LEVEL 112 MEQ/L (98-107); CREATININE FOR GFR 0.33 MG/DL (0.55-1.30); GLOMERULAR FILTRATION RATE > 60.0 (>39); GLUCOSE, FASTING 81 MG/DL (70-100); SODIUM LEVEL 141 MEQ/L (136-145)
[2021-05-27] MEDS ORDERED: METAMUCIL (PSYLLIUM) PACKET PO SCH (09:00)
[2021-05-27] MEDS ORDERED: POTASSIUM CHLORIDE 10MEQ SR TABLET PO SCH (09:00)
[2021-05-27] MEDS: FAMOTIDINE 20 MG TAB PO SCH (09:11)
[2021-05-27] MEDS: POTASSIUM CHLORIDE 10MEQ SR TABLET PO SCH ×2 (09:11→10:28)
[2021-05-27] MEDS: ENOXAPARIN 40MG/0.4ML SYRINGE (J1650 PER 10MG) SC SCH (09:12)
[2021-05-27] MEDS ORDERED: META1POW PO (09:44)
[2021-05-27] MEDS ORDERED: K-TA1TAB PO (09:44)
[2021-05-27 10:00] VITALS: BP 162/68
[2021-05-28] MEDS ORDERED: META28.32 PO (17:44)
[2021-05-28] MEDS ORDERED: POTA1TAB14 PO (17:44)
== END 2021-05-27 12:14 | disposition home health service (06) | DRG 372 ==
LOC: M ED 13:34 → M ED INP 19:38 → ENRESERV 05-21 16:09 → M MSPAV 05-21 17:31
PROVIDERS: ADMIT Internal Medicine; ATTEND General Practice
PROC: 0DJ08ZZ Inspection of Upper Intestinal Tract, Via Natural or Artificial Opening Endoscopic (ICD-10-PCS; 2021-05-26)
PROC: 3E0H8GC Introduction of Other Therapeutic Substance into Lower GI, Via Natural or Artificial Opening Endoscopic (ICD-10-PCS; principal; 2021-05-26 15:00)
DX: A04.71 Enterocolitis due to Clostridium difficile, recurrent (principal); J98.11 Atelectasis; J90 Pleural effusion, not elsewhere classified; E78.5 Hyperlipidemia, unspecified; I10 Essential (primary) hypertension; K21.9 Gastro-esophageal reflux disease without esophagitis; E87.6 Hypokalemia; M51.26 Other intervertebral disc displacement, lumbar region; E86.0 Dehydration; D63.8 Anemia in other chronic diseases classified elsewhere; Z85.038 Personal history of other malignant neoplasm of large intestine; Z85.42 Personal history of malignant neoplasm of other parts of uterus; Z85.3 Personal history of malignant neoplasm of breast; Z90.710 Acquired absence of both cervix and uterus; Z90.49 Acquired absence of other specified parts of digestive tract; Z79.899 Other long term (current) drug therapy; Z88.5 Allergy status to narcotic agent; Z88.8 Allergy status to other drugs, medicaments and biological substances; Z87.891 Personal history of nicotine dependence; Z91.030 Bee allergy status; Z86.16 Personal history of COVID-19; E88.09 Other disorders of plasma-protein metabolism, not elsewhere classified; R11.2 Nausea with vomiting, unspecified; R53.81 Other malaise; K64.4 Residual hemorrhoidal skin tags; K57.30 Diverticulosis of large intestine without perforation or abscess without bleeding; Z98.0 Intestinal bypass and anastomosis status

== ENCOUNTER 2021-05-28 16:39 | Inpatient (IN) | payer MEDICARE ==
[~2021-05-28] VITALS: Ht 162.6 cm; Wt 61.0 kg
[~2021-05-28 16:39] MED LIST changes: +ACET1TAB55 PO; +FAMO1TAB11 PO; +K-TA1TAB PO; +META1POW PO
[2021-05-28 17:36] LABS: BASO % 0.6 % (0.0-1.0); EOS % 0.1 % (0.0-3.0); HEMATOCRIT 33.8 % (36.0-47.0); LYMPH # 1.1 10^3/uL (1.5-5.0); LYMPH % 16.4 % (24.0-44.0); MEAN CORPUSCULAR HEMOGLOBIN 37.5 pg (27.0-33.0); MEAN CORPUSCULAR HGB CONC 34.6 g/dl (32.0-36.5); MEAN CORPUSCULAR VOLUME 108.3 fl (80.0-96.0); MONO # 0.7 10^3/uL (0.0-0.8); MONO % 9.6 % (2.0-8.0); PLATELET COUNT, AUTOMATED 190 10^3/uL (150-450); RED BLOOD COUNT 3.12 10^6/uL (4.00-5.40); WHITE BLOOD COUNT 6.9 10^3/uL (4.0-10.0)
[2021-05-28 17:40] LABS: HEMOGLOBIN 11.7 g/dl (12.0-15.5)
[2021-05-28] MEDS ORDERED: POTA1TAB14 PO (17:44)
[2021-05-28] MEDS ORDERED: META28.32 PO (17:44)
[2021-05-28] MEDS ORDERED: HOME MED LIST COMPLETE! XX SCH (17:45)
[2021-05-28 18:03] LABS: ALBUMIN 1.7 GM/DL (3.2-5.2); ALT/SGPT 35 U/L (12-78); BILIRUBIN,DIRECT < 0.1 MG/DL (0.0-0.2); BILIRUBIN,TOTAL 1.1 MG/DL (0.2-1.0); BLOOD UREA NITROGEN 2 MG/DL (7-18); CALCIUM LEVEL 8.1 MG/DL (8.8-10.2); CARBON DIOXIDE LEVEL 24 MEQ/L (21-32); CHLORIDE LEVEL 106 MEQ/L (98-107); CREATININE FOR GFR 0.59 MG/DL (0.55-1.30); GLOMERULAR FILTRATION RATE > 60.0 (>39); GLUCOSE, FASTING 97 MG/DL (70-100); LIPASE 51 U/L (73-393); POTASSIUM SERUM 6.6 MEQ/L (3.5-5.1); SODIUM LEVEL 136 MEQ/L (136-145); TOTAL PROTEIN 5.9 GM/DL (6.4-8.2)
[2021-05-28 18:13] LABS: RSV AMPLIFICATION NEGATIVE (NEGATIVE)
[2021-05-28] MEDS: FAMOTIDINE 20 MG TAB PO SCH (21:12)
[2021-05-28] MEDS: ACETAMINOPHEN TAB 650MG DOSE (2X325MG) PO PRN (21:12)
[2021-05-29 00:39] VITALS: BP 126/72
[2021-05-29] MEDS ORDERED: NS 1,000 ML IV SCH (01:15)
[2021-05-29] MEDS ORDERED: NS 500 ML IV ONE (01:15)
[2021-05-29 01:35] LABS: INR 1.07; PROTHROMBIN TIME 14.3 SECONDS (12.7-14.5)
[2021-05-29 01:36] LABS: PARTIAL THROMBOPLASTIN TIME 29.7 SECONDS (25.9-37.0)
[2021-05-29 06:00] VITALS: BP 128/69
[2021-05-29 06:26] LABS: HEMATOCRIT 28.5 % (36.0-47.0); HEMOGLOBIN 9.8 g/dl (12.0-15.5); MEAN CORPUSCULAR HEMOGLOBIN 38.1 pg (27.0-33.0); MEAN CORPUSCULAR HGB CONC 34.4 g/dl (32.0-36.5); MEAN CORPUSCULAR VOLUME 110.9 fl (80.0-96.0); PLATELET COUNT, AUTOMATED 162 10^3/uL (150-450); RED BLOOD COUNT 2.57 10^6/uL (4.00-5.40); WHITE BLOOD COUNT 5.3 10^3/uL (4.0-10.0)
[2021-05-29 06:45] LABS: BLOOD UREA NITROGEN 3 MG/DL (7-18); CALCIUM LEVEL 7.6 MG/DL (8.8-10.2); CARBON DIOXIDE LEVEL 25 MEQ/L (21-32); CHLORIDE LEVEL 109 MEQ/L (98-107); CREATININE FOR GFR 0.46 MG/DL (0.55-1.30); GLOMERULAR FILTRATION RATE > 60.0 (>39); GLUCOSE, FASTING 77 MG/DL (70-100); MAGNESIUM LEVEL 1.9 MG/DL (1.8-2.4); SODIUM LEVEL 140 MEQ/L (136-145)
[2021-05-29] MEDS: FAMOTIDINE 20 MG TAB PO SCH ×2 (08:01→21:21)
[2021-05-29] MEDS: ENOXAPARIN 40MG/0.4ML SYRINGE (J1650 PER 10MG) SC SCH (08:01)
[2021-05-29] MEDS ORDERED: MAG SULF 1GM/100ML (MAG RUN) 1 GM in IV 1 EA IV ONE (09:00)
[2021-05-29] MEDS ORDERED: METAMUCIL (PSYLLIUM) PACKET PO SCH (09:00)
[2021-05-29] MEDS ORDERED: POTASSIUM CHLORIDE 10MEQ SR TABLET PO SCH (09:00)
[2021-05-29 10:00] VITALS: BP_SYST 125; BP_SYST 129; BP_SYST 91; BP_DIAS 54; BP_DIAS 67; BP_DIAS 70
[2021-05-29 14:00] VITALS: BP_SYST 117; BP_SYST 124; BP_SYST 128; BP_SYST 129; BP_DIAS 57; BP_DIAS 60; BP_DIAS 63; BP_DIAS 64
[2021-05-29] MEDS: NS 1,000 ML IV SCH (15:16)
[2021-05-29 21:00] VITALS: BP 139/63
[2021-05-30] MEDS: NS 1,000 ML IV SCH (01:40)
[2021-05-30 06:00] VITALS: BP 134/61
[2021-05-30] MEDS ORDERED: ONDANSETRON 4MG/2ML VIAL IV ONE (08:25)
[2021-05-30] MEDS: FAMOTIDINE 20 MG TAB PO SCH ×2 (08:27→20:01)
[2021-05-30] MEDS: ENOXAPARIN 40MG/0.4ML SYRINGE (J1650 PER 10MG) SC SCH (08:28)
[2021-05-30 09:16] LABS: ALBUMIN 1.5 GM/DL (3.2-5.2); ALT/SGPT 24 U/L (12-78); BILIRUBIN,DIRECT 0.5 MG/DL (0.0-0.2); BILIRUBIN,TOTAL 1.2 MG/DL (0.2-1.0); BLOOD UREA NITROGEN 3 MG/DL (7-18); CALCIUM LEVEL 7.4 MG/DL (8.8-10.2); CARBON DIOXIDE LEVEL 24 MEQ/L (21-32); CHLORIDE LEVEL 110 MEQ/L (98-107); CREATININE FOR GFR 0.52 MG/DL (0.55-1.30); GLOMERULAR FILTRATION RATE > 60.0 (>39); GLUCOSE, FASTING 91 MG/DL (70-100); MAGNESIUM LEVEL 2.1 MG/DL (1.8-2.4); POTASSIUM SERUM 3.9 MEQ/L (3.5-5.1); SODIUM LEVEL 138 MEQ/L (136-145); TOTAL PROTEIN 4.8 GM/DL (6.4-8.2)
[2021-05-30 14:00] VITALS: BP 131/61
[2021-05-30] MEDS: NYSTATIN 100,000 UNITS/GM TOPICAL PWD 15 GM TOP SCH ×2 (15:20→20:01)
[2021-05-30 17:04] VITALS: BP 153/74
[2021-05-30] MEDS ORDERED: amLODIPine 5 MG TAB PO ONE (17:35)
[2021-05-30] MEDS ORDERED: GI COCKTAIL 50ML BTL(HYOSCYAMINE/MAALOX/LIDOCAINE VISCOUS)(1:3:1) PO ONE (17:35)
[2021-05-30] MEDS ORDERED: NITROGLYCERIN 0.4 MG SUBL TABLET SL SCH (17:35)
[2021-05-30] MEDS ORDERED: MORPHINE 2 MG/ML 1ML VIAL (J2270) IV ONE (17:35)
[2021-05-30] MEDS ORDERED: GI COCKTAIL 50ML BTL(HYOSCYAMINE/MAALOX/LIDOCAINE VISCOUS)(1:3:1) PO PRN (17:35)
[2021-05-30 18:19] LABS: CK-MB VALUE MASS < 1.0 NG/ML (<3.6); CPK CREATINE PHOSPHOKINASE 19 U/L (26-192); MB/CK RELATIVE INDEX 5.26 (< OR =4)
[2021-05-30 20:00] VITALS: BP 150/72
[2021-05-31 05:00] VITALS: BP 142/67
[2021-05-31] MEDS: FAMOTIDINE 20 MG TAB PO SCH ×2 (08:12→21:13)
[2021-05-31] MEDS: amLODIPine 5 MG TAB PO SCH (08:13)
[2021-05-31] MEDS: ENOXAPARIN 40MG/0.4ML SYRINGE (J1650 PER 10MG) SC SCH (08:13)
[2021-05-31] MEDS: NYSTATIN 100,000 UNITS/GM TOPICAL PWD 15 GM TOP SCH ×2 (08:14→21:15)
[2021-05-31] MEDS: CHOLESTYRAMINE 4 GM PWD PKT PO SCH (12:49)
[2021-05-31 14:00] VITALS: BP 128/63
[2021-05-31] MEDS: ACETAMINOPHEN TAB 650MG DOSE (2X325MG) PO PRN ×2 (15:10→21:15)
[2021-05-31 22:00] VITALS: BP 129/63
[2021-06-01] MEDS ORDERED: PHENAZOPYRIDINE 100 MG TAB PO ONE
[2021-06-01 06:00] VITALS: BP 129/64
[2021-06-01 06:23] LABS: HEMATOCRIT 27.5 % (36.0-47.0); HEMOGLOBIN 9.5 g/dl (12.0-15.5); MEAN CORPUSCULAR HEMOGLOBIN 37.3 pg (27.0-33.0); MEAN CORPUSCULAR HGB CONC 34.5 g/dl (32.0-36.5); MEAN CORPUSCULAR VOLUME 107.8 fl (80.0-96.0); PLATELET COUNT, AUTOMATED 170 10^3/uL (150-450); RED BLOOD COUNT 2.55 10^6/uL (4.00-5.40); WHITE BLOOD COUNT 3.9 10^3/uL (4.0-10.0)
[2021-06-01 06:59] LABS: ALBUMIN 1.3 GM/DL (3.2-5.2); ALT/SGPT 21 U/L (12-78); BILIRUBIN,TOTAL 0.6 MG/DL (0.2-1.0); BLOOD UREA NITROGEN 1 MG/DL (7-18); CALCIUM LEVEL 7.5 MG/DL (8.8-10.2); CARBON DIOXIDE LEVEL 25 MEQ/L (21-32); CHLORIDE LEVEL 111 MEQ/L (98-107); CREATININE FOR GFR 0.35 MG/DL (0.55-1.30); GLOMERULAR FILTRATION RATE > 60.0 (>39); GLUCOSE, FASTING 79 MG/DL (70-100); POTASSIUM SERUM 2.9 MEQ/L (3.5-5.1); SODIUM LEVEL 143 MEQ/L (136-145); TOTAL PROTEIN 4.2 GM/DL (6.4-8.2)
[2021-06-01] MEDS ORDERED: POTASSIUM CHLORIDE 10MEQ SR TABLET PO ONE ×2 (08:00→10:00)
[2021-06-01] MEDS: CHOLESTYRAMINE 4 GM PWD PKT PO SCH (09:01)
[2021-06-01] MEDS: amLODIPine 5 MG TAB PO SCH (09:05)
[2021-06-01] MEDS: FAMOTIDINE 20 MG TAB PO SCH ×2 (09:05→21:54)
[2021-06-01] MEDS: ENOXAPARIN 40MG/0.4ML SYRINGE (J1650 PER 10MG) SC SCH (09:06)
[2021-06-01] MEDS: NYSTATIN 100,000 UNITS/GM TOPICAL PWD 15 GM TOP SCH ×2 (09:07→21:54)
[2021-06-01] MEDS: ONDANSETRON 4MG/2ML VIAL IV PRN (09:10)
[2021-06-01 13:42] LABS: BLOOD UREA NITROGEN 2 MG/DL (7-18); CALCIUM LEVEL 7.3 MG/DL (8.8-10.2); CARBON DIOXIDE LEVEL 23 MEQ/L (21-32); CHLORIDE LEVEL 109 MEQ/L (98-107); CREATININE FOR GFR 0.59 MG/DL (0.55-1.30); GLOMERULAR FILTRATION RATE > 60.0 (>39); GLUCOSE, FASTING 93 MG/DL (70-100); POTASSIUM SERUM 2.9 MEQ/L (3.5-5.1); SODIUM LEVEL 138 MEQ/L (136-145)
[2021-06-01 14:00] VITALS: BP 150/66
[2021-06-01] MEDS ORDERED: POTASSIUM CHLORIDE 10% LIQ 20 MEQ/15 ML UDC PO ONE ×2 (16:50→17:45)
[2021-06-01 19:09] VITALS: BP 132/67
[2021-06-02 06:00] VITALS: BP 131/65
[2021-06-02 06:04] LABS: HEMATOCRIT 27.8 % (36.0-47.0); HEMOGLOBIN 9.5 g/dl (12.0-15.5); MEAN CORPUSCULAR HEMOGLOBIN 37.4 pg (27.0-33.0); MEAN CORPUSCULAR HGB CONC 34.2 g/dl (32.0-36.5); MEAN CORPUSCULAR VOLUME 109.4 fl (80.0-96.0); PLATELET COUNT, AUTOMATED 176 10^3/uL (150-450); RED BLOOD COUNT 2.54 10^6/uL (4.00-5.40)
[2021-06-02 06:35] LABS: ALBUMIN 1.4 GM/DL (3.2-5.2); ALT/SGPT 15 U/L (12-78); BILIRUBIN,TOTAL 0.7 MG/DL (0.2-1.0); BLOOD UREA NITROGEN 1 MG/DL (7-18); CALCIUM LEVEL 7.5 MG/DL (8.8-10.2); CARBON DIOXIDE LEVEL 25 MEQ/L (21-32); CHLORIDE LEVEL 111 MEQ/L (98-107); GLOMERULAR FILTRATION RATE > 60.0 (>39); GLUCOSE, FASTING 79 MG/DL (70-100); POTASSIUM SERUM 4.1 MEQ/L (3.5-5.1); SODIUM LEVEL 140 MEQ/L (136-145); TOTAL PROTEIN 4.5 GM/DL (6.4-8.2)
[2021-06-02] MEDS: FAMOTIDINE 20 MG TAB PO SCH ×2 (09:33→20:11)
[2021-06-02] MEDS: CHOLESTYRAMINE 4 GM PWD PKT PO SCH (09:33)
[2021-06-02] MEDS: ENOXAPARIN 40MG/0.4ML SYRINGE (J1650 PER 10MG) SC SCH (09:33)
[2021-06-02] MEDS: NYSTATIN 100,000 UNITS/GM TOPICAL PWD 15 GM TOP SCH ×2 (09:34→20:11)
[2021-06-02] MEDS: amLODIPine 5 MG TAB PO SCH (09:34)
[2021-06-02] MEDS ORDERED: CHOL4PW PO (14:47)
[2021-06-02] MEDS ORDERED: CEFU50TA PO (14:47)
[2021-06-02] MEDS ORDERED: AMLO1TAB24 PO (14:47)
[2021-06-02] MEDS ORDERED: PROB250C PO (14:47)
[2021-06-02] MEDS: ONDANSETRON 4MG/2ML VIAL IV PRN (20:11)
[2021-06-02] MEDS: ACETAMINOPHEN TAB 650MG DOSE (2X325MG) PO PRN (20:13)
[2021-06-03 05:59] LABS: HEMATOCRIT 26.8 % (36.0-47.0); HEMOGLOBIN 9.2 g/dl (12.0-15.5); MEAN CORPUSCULAR HEMOGLOBIN 37.2 pg (27.0-33.0); MEAN CORPUSCULAR HGB CONC 34.3 g/dl (32.0-36.5); MEAN CORPUSCULAR VOLUME 108.5 fl (80.0-96.0); PLATELET COUNT, AUTOMATED 175 10^3/uL (150-450); RED BLOOD COUNT 2.47 10^6/uL (4.00-5.40); WHITE BLOOD COUNT 3.9 10^3/uL (4.0-10.0)
[2021-06-03 06:00] VITALS: BP 129/68
[2021-06-03 06:29] LABS: ALBUMIN 1.3 GM/DL (3.2-5.2); ALT/SGPT 17 U/L (12-78); BILIRUBIN,TOTAL 0.9 MG/DL (0.2-1.0); BLOOD UREA NITROGEN 1 MG/DL (7-18); CALCIUM LEVEL 7.4 MG/DL (8.8-10.2); CARBON DIOXIDE LEVEL 28 MEQ/L (21-32); CHLORIDE LEVEL 111 MEQ/L (98-107); CREATININE FOR GFR 0.39 MG/DL (0.55-1.30); GLOMERULAR FILTRATION RATE > 60.0 (>39); GLUCOSE, FASTING 74 MG/DL (70-100); SODIUM LEVEL 141 MEQ/L (136-145); TOTAL PROTEIN 3.9 GM/DL (6.4-8.2)
[2021-06-03] MEDS: CHOLESTYRAMINE 4 GM PWD PKT PO SCH (08:06)
[2021-06-03 08:07] VITALS: BP 133/69
[2021-06-03] MEDS: ENOXAPARIN 40MG/0.4ML SYRINGE (J1650 PER 10MG) SC SCH (08:07)
[2021-06-03] MEDS: NYSTATIN 100,000 UNITS/GM TOPICAL PWD 15 GM TOP SCH (08:07)
[2021-06-03] MEDS: amLODIPine 5 MG TAB PO SCH (08:07)
[2021-06-03] MEDS: FAMOTIDINE 20 MG TAB PO SCH (08:08)
== END 2021-06-03 10:33 | disposition home health service (06) | DRG 641 ==
LOC: M ED 16:39 → EDBD 16:39 → M ED INP 18:57 → M MSPAV 05-29 00:37
PROVIDERS: ADMIT Internal Medicine; ATTEND Internal Medicine
DX: E86.0 Dehydration (principal); A04.71 Enterocolitis due to Clostridium difficile, recurrent; N39.0 Urinary tract infection, site not specified; K21.9 Gastro-esophageal reflux disease without esophagitis; F17.200 Nicotine dependence, unspecified, uncomplicated; R29.6 Repeated falls; R62.7 Adult failure to thrive; E86.1 Hypovolemia; I95.1 Orthostatic hypotension; D63.8 Anemia in other chronic diseases classified elsewhere; E87.6 Hypokalemia; E87.5 Hyperkalemia; Z85.038 Personal history of other malignant neoplasm of large intestine; Z85.3 Personal history of malignant neoplasm of breast; Z85.42 Personal history of malignant neoplasm of other parts of uterus; Z90.49 Acquired absence of other specified parts of digestive tract; Z90.710 Acquired absence of both cervix and uterus; Z79.899 Other long term (current) drug therapy; Z88.5 Allergy status to narcotic agent; Z88.8 Allergy status to other drugs, medicaments and biological substances; Z91.030 Bee allergy status

== ENCOUNTER 2021-06-05 20:16 | Inpatient (IN) | payer MEDICARE ==
[~2021-06-05] VITALS: Ht 162.6 cm; Wt 54.5 kg
[~2021-06-05 20:16] MED LIST changes: +CEFU50TA PO; +META28.32 PO; +POTA1TAB14 PO; +PROB250C PO
[2021-06-05 22:10] LABS: RSV AMPLIFICATION NEGATIVE (NEGATIVE)
[2021-06-05 22:40] LABS: BASO # 0.1 10^3/uL (0.0-0.2); BASO % 0.7 % (0.0-1.0); EOS % 0.3 % (0.0-3.0); HEMATOCRIT 29.8 % (36.0-47.0); HEMOGLOBIN 10.5 g/dl (12.0-15.5); LYMPH # 1.9 10^3/uL (1.5-5.0); LYMPH % 26.2 % (24.0-44.0); MEAN CORPUSCULAR HEMOGLOBIN 37.4 pg (27.0-33.0); MEAN CORPUSCULAR HGB CONC 35.2 g/dl (32.0-36.5); MONO # 0.7 10^3/uL (0.0-0.8); MONO % 9.1 % (2.0-8.0); NEUTROPHILS # 4.6 10^3/uL (1.5-8.5); NEUTROPHILS % 63.4 % (36.0-66.0); PLATELET COUNT, AUTOMATED 199 10^3/uL (150-450); RED BLOOD COUNT 2.81 10^6/uL (4.00-5.40); WHITE BLOOD COUNT 7.2 10^3/uL (4.0-10.0)
[2021-06-06 00:56] LABS: ALBUMIN 1.4 GM/DL (3.2-5.2); ALT/SGPT 26 U/L (12-78); BILIRUBIN,DIRECT 0.5 MG/DL (0.0-0.2); BILIRUBIN,TOTAL 0.7 MG/DL (0.2-1.0); BLOOD UREA NITROGEN 2 MG/DL (7-18); CALCIUM LEVEL 7.3 MG/DL (8.8-10.2); CARBON DIOXIDE LEVEL 26 MEQ/L (21-32); CHLORIDE LEVEL 109 MEQ/L (98-107); CREATININE FOR GFR 0.45 MG/DL (0.55-1.30); GLOMERULAR FILTRATION RATE > 60.0 (>39); GLUCOSE, FASTING 92 MG/DL (70-100); NT-PRO BNP 502 PG/ML (<450); POTASSIUM SERUM 3.4 MEQ/L (3.5-5.1); SODIUM LEVEL 141 MEQ/L (136-145); THYROID STIMULATING HORMONE 0.886 uIU/ML (0.358-3.740); THYROXINE (T4) 5.3 UG/DL (4.5-12.0); TOTAL PROTEIN 4.5 GM/DL (6.4-8.2)
[2021-06-06] MEDS ORDERED: FIRV50SO PO (01:38)
[2021-06-06] MEDS ORDERED: AMLO1TAB24 PO (01:38)
[2021-06-06] MEDS ORDERED: CEFU1TAB22 PO (01:38)
[2021-06-06] MEDS ORDERED: CHOL4PW PO (01:54)
[2021-06-06] MEDS ORDERED: HOME MED LIST COMPLETE! XX SCH (01:55)
[2021-06-06 09:01] LABS: MAGNESIUM LEVEL 1.9 MG/DL (1.8-2.4)
[2021-06-06] MEDS: FAMOTIDINE 20 MG TAB PO SCH ×2 (09:39→21:43)
[2021-06-06] MEDS: LACTOBACILLUS ACIDOPHILUS CAP (BACID) PO SCH (09:39)
[2021-06-06] MEDS: POTASSIUM CHLORIDE 10MEQ SR TABLET PO SCH (09:40)
[2021-06-06] MEDS: amLODIPine 5 MG TAB PO SCH (09:43)
[2021-06-06] MEDS: METAMUCIL (PSYLLIUM) PACKET PO SCH (09:43)
[2021-06-06] MEDS: CHOLESTYRAMINE 4 GM PWD PKT PO SCH (09:43)
[2021-06-06] MEDS: ENOXAPARIN 40MG/0.4ML SYRINGE (J1650 PER 10MG) SC SCH (09:44)
[2021-06-06] MEDS: VANCOMYCIN ORAL SOL 250MG/5ML ORAL SYRINGE PO SCH ×2 (13:23→21:43)
[2021-06-06 20:00] VITALS: BP 144/76
[2021-06-06] MEDS: ACETAMINOPHEN 325 MG TAB PO PRN (21:43)
[2021-06-07] MEDS: VANCOMYCIN ORAL SOL 250MG/5ML ORAL SYRINGE PO SCH ×4 (00:55→16:54)
[2021-06-07 05:48] LABS: BASO # 0.1 10^3/uL (0.0-0.2); BASO % 1.2 % (0.0-1.0); EOS # 0.1 10^3/uL (0.0-0.5); EOS % 2.6 % (0.0-3.0); HEMATOCRIT 26.2 % (36.0-47.0); HEMOGLOBIN 9.2 g/dl (12.0-15.5); LYMPH # 1.6 10^3/uL (1.5-5.0); LYMPH % 38.1 % (24.0-44.0); MEAN CORPUSCULAR HEMOGLOBIN 37.4 pg (27.0-33.0); MEAN CORPUSCULAR HGB CONC 35.1 g/dl (32.0-36.5); MEAN CORPUSCULAR VOLUME 106.5 fl (80.0-96.0); MONO # 0.4 10^3/uL (0.0-0.8); MONO % 10.2 % (2.0-8.0); NEUTROPHILS # 2.1 10^3/uL (1.5-8.5); NEUTROPHILS % 47.7 % (36.0-66.0); PLATELET COUNT, AUTOMATED 192 10^3/uL (150-450); RED BLOOD COUNT 2.46 10^6/uL (4.00-5.40); WHITE BLOOD COUNT 4.3 10^3/uL (4.0-10.0)
[2021-06-07 06:00] VITALS: BP 134/63
[2021-06-07 06:16] LABS: BLOOD UREA NITROGEN 4 MG/DL (7-18); CALCIUM LEVEL 7.5 MG/DL (8.8-10.2); CARBON DIOXIDE LEVEL 27 MEQ/L (21-32); CHLORIDE LEVEL 107 MEQ/L (98-107); CREATININE FOR GFR 0.52 MG/DL (0.55-1.30); GLOMERULAR FILTRATION RATE > 60.0 (>39); GLUCOSE, FASTING 82 MG/DL (70-100); MAGNESIUM LEVEL 1.9 MG/DL (1.8-2.4); POTASSIUM SERUM 3.4 MEQ/L (3.5-5.1); SODIUM LEVEL 139 MEQ/L (136-145)
[2021-06-07] MEDS ORDERED: POTASSIUM CHLORIDE 10MEQ SR TABLET PO ONE (07:40)
[2021-06-07] MEDS: LACTOBACILLUS ACIDOPHILUS CAP (BACID) PO SCH (07:53)
[2021-06-07] MEDS: FAMOTIDINE 20 MG TAB PO SCH ×2 (07:54→22:02)
[2021-06-07] MEDS: METAMUCIL (PSYLLIUM) PACKET PO SCH (07:58)
[2021-06-07] MEDS: ENOXAPARIN 40MG/0.4ML SYRINGE (J1650 PER 10MG) SC SCH (08:02)
[2021-06-07] MEDS: amLODIPine 5 MG TAB PO SCH (08:07)
[2021-06-07 08:47] LABS: ALBUMIN 1.4 GM/DL (3.2-5.2); ALT/SGPT 21 U/L (12-78); BILIRUBIN,DIRECT 0.4 MG/DL (0.0-0.2); BILIRUBIN,TOTAL 0.7 MG/DL (0.2-1.0); TOTAL PROTEIN 4.3 GM/DL (6.4-8.2)
[2021-06-07] MEDS: CHOLESTYRAMINE 4 GM PWD PKT PO SCH (09:00)
[2021-06-07] MEDS: POTASSIUM CHLORIDE 10MEQ SR TABLET PO SCH (09:00)
[2021-06-07] MEDS: POTASSIUM CHLORIDE 10% LIQ 20 MEQ/15 ML UDC PO ONE ×2 (09:29→10:26)
[2021-06-07 14:00] VITALS: BP 127/66
[2021-06-07] MEDS: ACETAMINOPHEN 325 MG TAB PO PRN (16:53)
[2021-06-07] MEDS: KCL 10MEQ/100ML SWI (KRUN) 10 MEQ in IV 1 EA IV SCH ×4 (20:15→22:02)
[2021-06-07 20:48] VITALS: BP 142/64
[2021-06-08] MEDS: VANCOMYCIN ORAL SOL 250MG/5ML ORAL SYRINGE PO SCH ×4 (00:02→18:33)
[2021-06-08 05:08] VITALS: BP 122/60
[2021-06-08 07:41] LABS: BASO % 0.7 % (0.0-1.0); EOS # 0.1 10^3/uL (0.0-0.5); EOS % 2.8 % (0.0-3.0); HEMATOCRIT 24.7 % (36.0-47.0); HEMOGLOBIN 8.8 g/dl (12.0-15.5); LYMPH # 1.7 10^3/uL (1.5-5.0); LYMPH % 39.3 % (24.0-44.0); MEAN CORPUSCULAR HEMOGLOBIN 37.4 pg (27.0-33.0); MEAN CORPUSCULAR HGB CONC 35.6 g/dl (32.0-36.5); MEAN CORPUSCULAR VOLUME 105.1 fl (80.0-96.0); MONO # 0.4 10^3/uL (0.0-0.8); MONO % 8.5 % (2.0-8.0); NEUTROPHILS # 2.1 10^3/uL (1.5-8.5); NEUTROPHILS % 48.5 % (36.0-66.0); PLATELET COUNT, AUTOMATED 185 10^3/uL (150-450); RED BLOOD COUNT 2.35 10^6/uL (4.00-5.40); WHITE BLOOD COUNT 4.3 10^3/uL (4.0-10.0)
[2021-06-08 08:09] LABS: ALBUMIN 1.3 GM/DL (3.2-5.2); ALT/SGPT 19 U/L (12-78); BILIRUBIN,TOTAL 0.8 MG/DL (0.2-1.0); BLOOD UREA NITROGEN 3 MG/DL (7-18); CALCIUM LEVEL 7.4 MG/DL (8.8-10.2); CARBON DIOXIDE LEVEL 27 MEQ/L (21-32); CHLORIDE LEVEL 108 MEQ/L (98-107); CREATININE FOR GFR 0.38 MG/DL (0.55-1.30); GLOMERULAR FILTRATION RATE > 60.0 (>39); GLUCOSE, FASTING 78 MG/DL (70-100); MAGNESIUM LEVEL 1.8 MG/DL (1.8-2.4); POTASSIUM SERUM 4.2 MEQ/L (3.5-5.1); SODIUM LEVEL 139 MEQ/L (136-145)
[2021-06-08] MEDS: POTASSIUM CHLORIDE 10MEQ SR TABLET PO SCH (09:00)
[2021-06-08] MEDS: LACTOBACILLUS ACIDOPHILUS CAP (BACID) PO SCH (09:03)
[2021-06-08] MEDS: FAMOTIDINE 20 MG TAB PO SCH ×2 (09:03→20:10)
[2021-06-08] MEDS: amLODIPine 5 MG TAB PO SCH (09:04)
[2021-06-08] MEDS: METAMUCIL (PSYLLIUM) PACKET PO SCH (09:04)
[2021-06-08] MEDS: ENOXAPARIN 40MG/0.4ML SYRINGE (J1650 PER 10MG) SC SCH (09:04)
[2021-06-08] MEDS: CHOLESTYRAMINE 4 GM PWD PKT PO SCH (10:11)
[2021-06-08 11:23] LABS: FERRITIN 295 NG/ML (8-252)
[2021-06-08] MEDS: MULTIVITAMINS/MINERALS THERAP 1 TAB PO SCH (12:18)
[2021-06-08 14:00] VITALS: BP 129/68
[2021-06-08] MEDS ORDERED: NYSTATIN OINTMENT 15 GM TOP PRN (17:05)
[2021-06-08] MEDS ORDERED: FLUCONAZOLE 50MG TABLET PO ONE (17:10)
[2021-06-08] MEDS ORDERED: NYSTATIN 100,000 UNITS/GM TOPICAL PWD 15 GM TOP PRN (17:55)
[2021-06-08] MEDS: ACETAMINOPHEN 325 MG TAB PO PRN (20:10)
[2021-06-08 22:00] VITALS: BP 121/72
[2021-06-09] MEDS: VANCOMYCIN ORAL SOL 250MG/5ML ORAL SYRINGE PO SCH ×2 (00:19→05:34)
[2021-06-09 06:00] VITALS: BP 125/65
[2021-06-09 06:55] LABS: BASO % 0.9 % (0.0-1.0); EOS # 0.1 10^3/uL (0.0-0.5); EOS % 3.3 % (0.0-3.0); HEMATOCRIT 27.5 % (36.0-47.0); HEMOGLOBIN 9.6 g/dl (12.0-15.5); LYMPH # 1.8 10^3/uL (1.5-5.0); LYMPH % 42.9 % (24.0-44.0); MEAN CORPUSCULAR HEMOGLOBIN 37.5 pg (27.0-33.0); MEAN CORPUSCULAR HGB CONC 34.9 g/dl (32.0-36.5); MEAN CORPUSCULAR VOLUME 107.4 fl (80.0-96.0); MONO # 0.4 10^3/uL (0.0-0.8); MONO % 8.7 % (2.0-8.0); NEUTROPHILS # 1.9 10^3/uL (1.5-8.5); PLATELET COUNT, AUTOMATED 191 10^3/uL (150-450); RED BLOOD COUNT 2.56 10^6/uL (4.00-5.40); WHITE BLOOD COUNT 4.2 10^3/uL (4.0-10.0)
[2021-06-09 07:22] LABS: ALBUMIN 1.4 GM/DL (3.2-5.2); ALT/SGPT 22 U/L (12-78); BILIRUBIN,TOTAL 0.8 MG/DL (0.2-1.0); BLOOD UREA NITROGEN 3 MG/DL (7-18); CALCIUM LEVEL 7.8 MG/DL (8.8-10.2); CARBON DIOXIDE LEVEL 29 MEQ/L (21-32); CHLORIDE LEVEL 107 MEQ/L (98-107); CREATININE FOR GFR 0.42 MG/DL (0.55-1.30); GLOMERULAR FILTRATION RATE > 60.0 (>39); GLUCOSE, FASTING 94 MG/DL (70-100); MAGNESIUM LEVEL 1.8 MG/DL (1.8-2.4); POTASSIUM SERUM 3.5 MEQ/L (3.5-5.1); SODIUM LEVEL 140 MEQ/L (136-145); TOTAL PROTEIN 4.8 GM/DL (6.4-8.2)
[2021-06-09] MEDS: ENOXAPARIN 40MG/0.4ML SYRINGE (J1650 PER 10MG) SC SCH (08:11)
[2021-06-09] MEDS: FAMOTIDINE 20 MG TAB PO SCH ×2 (08:12→20:19)
[2021-06-09] MEDS: amLODIPine 5 MG TAB PO SCH (08:12)
[2021-06-09] MEDS: MULTIVITAMINS/MINERALS THERAP 1 TAB PO SCH (08:12)
[2021-06-09] MEDS: LACTOBACILLUS ACIDOPHILUS CAP (BACID) PO SCH (08:12)
[2021-06-09] MEDS: POTASSIUM CHLORIDE 10MEQ SR TABLET PO SCH (08:12)
[2021-06-09] MEDS: METAMUCIL (PSYLLIUM) PACKET PO SCH (08:13)
[2021-06-09] MEDS: CHOLESTYRAMINE 4 GM PWD PKT PO SCH (09:00)
[2021-06-09] MEDS: ACETAMINOPHEN 325 MG TAB PO PRN ×2 (13:48→20:20)
[2021-06-09 14:00] VITALS: BP 126/66
[2021-06-09 22:00] VITALS: BP 125/59
[2021-06-10 06:00] VITALS: BP 122/63
[2021-06-10 06:18] LABS: HEMATOCRIT 26.2 % (36.0-47.0); HEMOGLOBIN 9.1 g/dl (12.0-15.5); MEAN CORPUSCULAR HEMOGLOBIN 37.4 pg (27.0-33.0); MEAN CORPUSCULAR HGB CONC 34.7 g/dl (32.0-36.5); MEAN CORPUSCULAR VOLUME 107.8 fl (80.0-96.0); PLATELET COUNT, AUTOMATED 193 10^3/uL (150-450); RED BLOOD COUNT 2.43 10^6/uL (4.00-5.40)
[2021-06-10 06:46] LABS: ATYPICAL LYMPH 1 % (0-5); EOSINOPHILS 2 % (0-3); LYMPHOCYTES 49 % (16-44); MONOCYTES 7 % (0-5); NEUTROPHILS 41 % (28-66)
[2021-06-10 06:47] LABS: PLATELET ESTIMATE NORMAL (NORMAL)
[2021-06-10 06:51] LABS: ALBUMIN 1.4 GM/DL (3.2-5.2); ALT/SGPT 27 U/L (12-78); BILIRUBIN,TOTAL 0.5 MG/DL (0.2-1.0); BLOOD UREA NITROGEN 3 MG/DL (7-18); CALCIUM LEVEL 7.5 MG/DL (8.8-10.2); CARBON DIOXIDE LEVEL 28 MEQ/L (21-32); CHLORIDE LEVEL 108 MEQ/L (98-107); CREATININE FOR GFR 0.52 MG/DL (0.55-1.30); GLOMERULAR FILTRATION RATE > 60.0 (>39); GLUCOSE, FASTING 83 MG/DL (70-100); POTASSIUM SERUM 3.2 MEQ/L (3.5-5.1); SODIUM LEVEL 141 MEQ/L (136-145); TOTAL PROTEIN 4.5 GM/DL (6.4-8.2)
[2021-06-10] MEDS: ENOXAPARIN 40MG/0.4ML SYRINGE (J1650 PER 10MG) SC SCH (08:28)
[2021-06-10] MEDS: MULTIVITAMINS/MINERALS THERAP 1 TAB PO SCH (08:30)
[2021-06-10 08:31] VITALS: BP 122/63
[2021-06-10] MEDS: FAMOTIDINE 20 MG TAB PO SCH (08:31)
[2021-06-10] MEDS: amLODIPine 5 MG TAB PO SCH (08:31)
[2021-06-10] MEDS: LACTOBACILLUS ACIDOPHILUS CAP (BACID) PO SCH (08:31)
[2021-06-10] MEDS: METAMUCIL (PSYLLIUM) PACKET PO SCH (08:32)
[2021-06-10] MEDS: CHOLESTYRAMINE 4 GM PWD PKT PO SCH (08:33)
[2021-06-10] MEDS: KCL 10MEQ/100ML SWI (KRUN) 10 MEQ in IV 1 EA IV SCH ×4 (08:35→11:52)
[2021-06-10] MEDS: POTASSIUM CHLORIDE 10MEQ SR TABLET PO SCH (09:00)
[2021-06-10] MEDS ORDERED: LOPE-39 PO (11:58)
[2021-06-10] MEDS ORDERED: NYST10006 TOP (11:58)
== END 2021-06-10 14:50 | disposition home health service (06) | DRG 641 ==
LOC: M ED 20:16 → M ED INP 20:17 → ENRESERV 06-06 17:10 → M MS5PR 06-06 19:40 → OBSVTOIN 06-08 10:42
PROVIDERS: ADMIT Internal Medicine; ATTEND Internal Medicine
DX: E46 Unspecified protein-calorie malnutrition (principal); A04.71 Enterocolitis due to Clostridium difficile, recurrent; R60.0 Localized edema; R53.1 Weakness; D63.8 Anemia in other chronic diseases classified elsewhere; K21.9 Gastro-esophageal reflux disease without esophagitis; D52.0 Dietary folate deficiency anemia; R62.7 Adult failure to thrive; K52.22 Food protein-induced enteropathy; B37.3 Candidiasis of vulva and vagina; E87.6 Hypokalemia; B37.2 Candidiasis of skin and nail; E88.09 Other disorders of plasma-protein metabolism, not elsewhere classified; Z85.42 Personal history of malignant neoplasm of other parts of uterus; Z90.49 Acquired absence of other specified parts of digestive tract; Z90.710 Acquired absence of both cervix and uterus; Z87.891 Personal history of nicotine dependence; Z79.899 Other long term (current) drug therapy; Z85.038 Personal history of other malignant neoplasm of large intestine; Z88.5 Allergy status to narcotic agent; Z88.8 Allergy status to other drugs, medicaments and biological substances; Z91.030 Bee allergy status; Z85.3 Personal history of malignant neoplasm of breast

== ENCOUNTER 2021-06-16 11:51 | Inpatient (IN) | payer MEDICARE ==
[~2021-06-16] VITALS: Ht 162.6 cm; Wt 54.5 kg
[~2021-06-16 11:51] MED LIST changes: +CEFU1TAB22 PO; +LOPE-39 PO; +NYST10006 TOP
[2021-06-16 13:36] LABS: BASO % 0.6 % (0.0-1.0); EOS % 0.6 % (0.0-3.0); HEMATOCRIT 28.9 % (36.0-47.0); HEMOGLOBIN 10.2 g/dl (12.0-15.5); LYMPH # 1.3 10^3/uL (1.5-5.0); LYMPH % 19.3 % (24.0-44.0); MEAN CORPUSCULAR HEMOGLOBIN 37.9 pg (27.0-33.0); MEAN CORPUSCULAR HGB CONC 35.3 g/dl (32.0-36.5); MEAN CORPUSCULAR VOLUME 107.4 fl (80.0-96.0); MONO # 0.4 10^3/uL (0.0-0.8); MONO % 6.4 % (2.0-8.0); NEUTROPHILS % 72.8 % (36.0-66.0); PLATELET COUNT, AUTOMATED 155 10^3/uL (150-450); RED BLOOD COUNT 2.69 10^6/uL (4.00-5.40); WHITE BLOOD COUNT 6.8 10^3/uL (4.0-10.0)
[2021-06-16 14:11] LABS: ALBUMIN 1.6 GM/DL (3.2-5.2); ALT/SGPT 69 U/L (12-78); BILIRUBIN,TOTAL 1.4 MG/DL (0.2-1.0); BLOOD UREA NITROGEN 3 MG/DL (7-18); CALCIUM LEVEL 7.9 MG/DL (8.8-10.2); CARBON DIOXIDE LEVEL 21 MEQ/L (21-32); CHLORIDE LEVEL 102 MEQ/L (98-107); CREATININE FOR GFR 0.39 MG/DL (0.55-1.30); GLOMERULAR FILTRATION RATE > 60.0 (>39); GLUCOSE, FASTING 90 MG/DL (70-100); LIPASE 47 U/L (73-393); NT-PRO BNP 803 PG/ML (<450); POTASSIUM SERUM 3.6 MEQ/L (3.5-5.1); SODIUM LEVEL 136 MEQ/L (136-145)
[2021-06-16 14:29] LABS: RSV AMPLIFICATION NEGATIVE (NEGATIVE)
[2021-06-16] MEDS ORDERED: VANCOMYCIN HCL 1,000 MG in IV FLUID PLACE HOLDER 1 EA IV ONE (15:05)
[2021-06-16] MEDS ORDERED: NS 500 ML IV ONE (15:20)
[2021-06-16] MEDS ORDERED: cefTRIAXone SOD 2 GM in D5W MINI-BAG PLUS 50 ML IV ONE (15:25)
[2021-06-16] MEDS ORDERED: VANCOMYCIN HCL 1,000 MG, VIAL MATE ADAPTER 1 EACH in NS 250 ML IV ONE (16:00)
[2021-06-16] MEDS ORDERED: LOPERAMIDE 2 MG CAPLET PO PRN (16:15)
[2021-06-16] MEDS: NS 1,000 ML IV SCH ×2 (16:55→23:45)
[2021-06-16] MEDS ORDERED: LOPE2CAP PO (17:05)
[2021-06-16] MEDS ORDERED: HOME MED LIST COMPLETE! XX SCH (17:05)
[2021-06-16] MEDS ORDERED: NYST1POW9 TOP (17:05)
[2021-06-16] MEDS ORDERED: LORazepam 2 MG TAB PO PRN (17:35)
[2021-06-16 17:39] LABS: INR 1.07; PROTHROMBIN TIME 14.3 SECONDS (12.7-14.5)
[2021-06-16 17:43] VITALS: BP 98/53
[2021-06-16 18:00] VITALS: BP 110/58
[2021-06-16] MEDS: FOLIC ACID 1 MG TAB PO SCH (18:22)
[2021-06-16] MEDS: NICOTINE 14 MG/24 HR TRANSDERMAL TD SCH (18:22)
[2021-06-16] MEDS: MULTIVITAMINS/MINERALS THERAP 1 TAB PO SCH (18:22)
[2021-06-16] MEDS: FLUCONAZOLE 50MG TABLET PO SCH (19:52)
[2021-06-16] MEDS: THIAMINE 100 MG TAB PO SCH (19:52)
[2021-06-16] MEDS ORDERED: traMADol 50 MG TAB PO PRN (21:35)
[2021-06-16] MEDS: IBUPROFEN 400MG TAB PO PRN (22:48)
[2021-06-17 05:27] LABS: HEMATOCRIT 23.5 % (36.0-47.0); MEAN CORPUSCULAR HEMOGLOBIN 37.4 pg (27.0-33.0); MEAN CORPUSCULAR HGB CONC 34.9 g/dl (32.0-36.5); MEAN CORPUSCULAR VOLUME 107.3 fl (80.0-96.0); PLATELET COUNT, AUTOMATED 133 10^3/uL (150-450); RED BLOOD COUNT 2.19 10^6/uL (4.00-5.40); WHITE BLOOD COUNT 4.7 10^3/uL (4.0-10.0)
[2021-06-17 05:30] VITALS: BP 112/65
[2021-06-17 05:30] LABS: HEMOGLOBIN 8.2 g/dl (12.0-15.5)
[2021-06-17] MEDS: ACETAMINOPHEN TAB 650MG DOSE (2X325MG) PO PRN (05:32)
[2021-06-17 05:55] LABS: ALBUMIN 1.2 GM/DL (3.2-5.2); ALT/SGPT 48 U/L (12-78); BLOOD UREA NITROGEN 3 MG/DL (7-18); CALCIUM LEVEL 7.1 MG/DL (8.8-10.2); CARBON DIOXIDE LEVEL 28 MEQ/L (21-32); CHLORIDE LEVEL 108 MEQ/L (98-107); CREATININE FOR GFR 0.47 MG/DL (0.55-1.30); GLOMERULAR FILTRATION RATE > 60.0 (>39); GLUCOSE, FASTING 77 MG/DL (70-100); POTASSIUM SERUM 3.1 MEQ/L (3.5-5.1); SODIUM LEVEL 141 MEQ/L (136-145)
[2021-06-17] MEDS: NICOTINE 14 MG/24 HR TRANSDERMAL TD SCH (08:38)
[2021-06-17] MEDS: FLUCONAZOLE 50MG TABLET PO SCH (08:39)
[2021-06-17] MEDS: POTASSIUM CHLORIDE 10MEQ SR TABLET PO SCH ×2 (08:39→10:00)
[2021-06-17] MEDS: ENOXAPARIN 40MG/0.4ML SYRINGE (J1650 PER 10MG) SC SCH (08:39)
[2021-06-17] MEDS: FOLIC ACID 1 MG TAB PO SCH (08:39)
[2021-06-17] MEDS: MULTIVITAMINS/MINERALS THERAP 1 TAB PO SCH (08:40)
[2021-06-17] MEDS: THIAMINE 100 MG TAB PO SCH ×2 (08:40→21:24)
[2021-06-17] MEDS ORDERED: CHOLESTYRAMINE 4 GM PWD PKT PO SCH (09:00)
[2021-06-17] MEDS: IBUPROFEN 400MG TAB PO PRN ×3 (10:39→21:30)
[2021-06-17] MEDS: NS 1,000 ML IV SCH (12:48)
[2021-06-17 14:00] VITALS: BP_SYST 111; BP_SYST 112; BP_DIAS 59
[2021-06-17] MEDS: KCL 10MEQ/100ML SWI (KRUN) 10 MEQ in IV 1 EA IV SCH ×5 (15:30→19:47)
[2021-06-17] MEDS: CHOLESTYRAMINE 4 GM PWD PKT PO SCH (21:23)
[2021-06-17 22:00] VITALS: BP 110/57
[2021-06-18] MEDS: ACETAMINOPHEN TAB 650MG DOSE (2X325MG) PO PRN ×2 (03:34→21:20)
[2021-06-18 06:00] VITALS: BP 111/57
[2021-06-18 07:02] LABS: HEMATOCRIT 25.3 % (36.0-47.0); HEMOGLOBIN 8.8 g/dl (12.0-15.5); MEAN CORPUSCULAR HEMOGLOBIN 37.6 pg (27.0-33.0); MEAN CORPUSCULAR HGB CONC 34.8 g/dl (32.0-36.5); MEAN CORPUSCULAR VOLUME 108.1 fl (80.0-96.0); PLATELET COUNT, AUTOMATED 141 10^3/uL (150-450); RED BLOOD COUNT 2.34 10^6/uL (4.00-5.40); WHITE BLOOD COUNT 4.9 10^3/uL (4.0-10.0)
[2021-06-18 07:35] LABS: ALBUMIN 1.2 GM/DL (3.2-5.2); ALT/SGPT 45 U/L (12-78); BLOOD UREA NITROGEN 3 MG/DL (7-18); CALCIUM LEVEL 7.5 MG/DL (8.8-10.2); CARBON DIOXIDE LEVEL 24 MEQ/L (21-32); CHLORIDE LEVEL 110 MEQ/L (98-107); CREATININE FOR GFR 0.42 MG/DL (0.55-1.30); GLOMERULAR FILTRATION RATE > 60.0 (>39); GLUCOSE, FASTING 76 MG/DL (70-100); POTASSIUM SERUM 4.1 MEQ/L (3.5-5.1); SODIUM LEVEL 140 MEQ/L (136-145); TOTAL PROTEIN 4.2 GM/DL (6.4-8.2)
[2021-06-18] MEDS: NICOTINE 14 MG/24 HR TRANSDERMAL TD SCH (09:54)
[2021-06-18] MEDS: MULTIVITAMINS/MINERALS THERAP 1 TAB PO SCH (09:54)
[2021-06-18] MEDS: FLUCONAZOLE 50MG TABLET PO SCH (09:54)
[2021-06-18] MEDS: ENOXAPARIN 40MG/0.4ML SYRINGE (J1650 PER 10MG) SC SCH (09:55)
[2021-06-18] MEDS: THIAMINE 100 MG TAB PO SCH ×2 (09:55→21:22)
[2021-06-18] MEDS: FOLIC ACID 1 MG TAB PO SCH (09:56)
[2021-06-18 16:18] LABS: PERCENT SATURATION 89.3 % (13.2-45.0)
[2021-06-18] MEDS: traMADol 50 MG TAB PO PRN (18:01)
[2021-06-18] MEDS: CHOLESTYRAMINE 4 GM PWD PKT PO SCH (21:00)
[2021-06-18] MEDS: NYSTATIN 100,000 UNITS/GM TOPICAL PWD 15 GM TOP SCH (21:20)
[2021-06-18] MEDS: CLOTRIMAZOLE 1% TOPICAL CREAM 30GM TOP SCH (21:21)
[2021-06-19 04:37] VITALS: BP 108/63
[2021-06-19 06:46] LABS: HEMATOCRIT 23.2 % (36.0-47.0); MEAN CORPUSCULAR HEMOGLOBIN 37.6 pg (27.0-33.0); MEAN CORPUSCULAR HGB CONC 34.5 g/dl (32.0-36.5); MEAN CORPUSCULAR VOLUME 108.9 fl (80.0-96.0); PLATELET COUNT, AUTOMATED 135 10^3/uL (150-450); RED BLOOD COUNT 2.13 10^6/uL (4.00-5.40); WHITE BLOOD COUNT 4.5 10^3/uL (4.0-10.0)
[2021-06-19 07:08] LABS: ALBUMIN 1.1 GM/DL (3.2-5.2); ALT/SGPT 38 U/L (12-78); BILIRUBIN,TOTAL 0.7 MG/DL (0.2-1.0); BLOOD UREA NITROGEN 4 MG/DL (7-18); CALCIUM LEVEL 7.5 MG/DL (8.8-10.2); CARBON DIOXIDE LEVEL 24 MEQ/L (21-32); CHLORIDE LEVEL 108 MEQ/L (98-107); CREATININE FOR GFR 0.44 MG/DL (0.55-1.30); GLOMERULAR FILTRATION RATE > 60.0 (>39); GLUCOSE, FASTING 81 MG/DL (70-100); POTASSIUM SERUM 3.9 MEQ/L (3.5-5.1); SODIUM LEVEL 138 MEQ/L (136-145); TOTAL PROTEIN 3.9 GM/DL (6.4-8.2)
[2021-06-19] MEDS: NICOTINE 14 MG/24 HR TRANSDERMAL TD SCH (08:21)
[2021-06-19] MEDS: FOLIC ACID 1 MG TAB PO SCH (08:22)
[2021-06-19] MEDS: THIAMINE 100 MG TAB PO SCH (08:23)
[2021-06-19] MEDS: ENOXAPARIN 40MG/0.4ML SYRINGE (J1650 PER 10MG) SC SCH (08:23)
[2021-06-19] MEDS: MULTIVITAMINS/MINERALS THERAP 1 TAB PO SCH (08:23)
[2021-06-19] MEDS: NYSTATIN 100,000 UNITS/GM TOPICAL PWD 15 GM TOP SCH ×2 (08:24→19:37)
[2021-06-19] MEDS: CLOTRIMAZOLE 1% TOPICAL CREAM 30GM TOP SCH ×2 (08:24→19:37)
[2021-06-19] MEDS: traMADol 50 MG TAB PO PRN ×3 (08:28→19:41)
[2021-06-19 14:00] VITALS: BP 110/57
[2021-06-19] MEDS: CHOLESTYRAMINE 4 GM PWD PKT PO SCH (19:37)
[2021-06-19 22:00] VITALS: BP 108/68
[2021-06-20] MEDS: diphenhydrAMINE 25MG CAP PO PRN ×3 (00:45→16:04)
[2021-06-20 04:39] VITALS: BP 105/56
[2021-06-20 05:59] LABS: HEMATOCRIT 25.5 % (36.0-47.0); HEMOGLOBIN 8.7 g/dl (12.0-15.5); MEAN CORPUSCULAR HEMOGLOBIN 36.6 pg (27.0-33.0); MEAN CORPUSCULAR HGB CONC 34.1 g/dl (32.0-36.5); MEAN CORPUSCULAR VOLUME 107.1 fl (80.0-96.0); PLATELET COUNT, AUTOMATED 148 10^3/uL (150-450); RED BLOOD COUNT 2.38 10^6/uL (4.00-5.40); WHITE BLOOD COUNT 4.4 10^3/uL (4.0-10.0)
[2021-06-20 06:24] LABS: ALBUMIN 1.3 GM/DL (3.2-5.2); ALT/SGPT 40 U/L (12-78); BILIRUBIN,TOTAL 0.9 MG/DL (0.2-1.0); BLOOD UREA NITROGEN 4 MG/DL (7-18); CALCIUM LEVEL 7.7 MG/DL (8.8-10.2); CARBON DIOXIDE LEVEL 26 MEQ/L (21-32); CHLORIDE LEVEL 106 MEQ/L (98-107); CREATININE FOR GFR 0.42 MG/DL (0.55-1.30); GLOMERULAR FILTRATION RATE > 60.0 (>39); GLUCOSE, FASTING 70 MG/DL (70-100); SODIUM LEVEL 138 MEQ/L (136-145); TOTAL PROTEIN 4.4 GM/DL (6.4-8.2)
[2021-06-20] MEDS: CLOTRIMAZOLE 1% TOPICAL CREAM 30GM TOP SCH ×2 (08:45→20:31)
[2021-06-20] MEDS: NYSTATIN 100,000 UNITS/GM TOPICAL PWD 15 GM TOP SCH ×2 (08:45→20:32)
[2021-06-20] MEDS: NICOTINE 14 MG/24 HR TRANSDERMAL TD SCH (08:49)
[2021-06-20] MEDS: MULTIVITAMINS/MINERALS THERAP 1 TAB PO SCH (08:50)
[2021-06-20] MEDS: FOLIC ACID 1 MG TAB PO SCH (08:51)
[2021-06-20] MEDS: ENOXAPARIN 40MG/0.4ML SYRINGE (J1650 PER 10MG) SC SCH (08:51)
[2021-06-20 09:29] LABS: FOLATE 12.2 NG/ML (>5.4)
[2021-06-20] MEDS ORDERED: ONDANSETRON 4MG TAB PO PRN (10:50)
[2021-06-20] MEDS: traMADol 50 MG TAB PO PRN (16:05)
[2021-06-20] MEDS: CHOLESTYRAMINE 4 GM PWD PKT PO SCH (20:30)
[2021-06-21 05:56] LABS: HEMATOCRIT 25.2 % (36.0-47.0); HEMOGLOBIN 8.6 g/dl (12.0-15.5); MEAN CORPUSCULAR HEMOGLOBIN 37.4 pg (27.0-33.0); MEAN CORPUSCULAR HGB CONC 34.1 g/dl (32.0-36.5); MEAN CORPUSCULAR VOLUME 109.6 fl (80.0-96.0); PLATELET COUNT, AUTOMATED 149 10^3/uL (150-450)
[2021-06-21 06:00] VITALS: BP 114/59
[2021-06-21 06:18] LABS: ALBUMIN 1.2 GM/DL (3.2-5.2); ALT/SGPT 36 U/L (12-78); BILIRUBIN,TOTAL 0.8 MG/DL (0.2-1.0); BLOOD UREA NITROGEN 3 MG/DL (7-18); CALCIUM LEVEL 7.8 MG/DL (8.8-10.2); CARBON DIOXIDE LEVEL 28 MEQ/L (21-32); CHLORIDE LEVEL 107 MEQ/L (98-107); CREATININE FOR GFR 0.39 MG/DL (0.55-1.30); GLOMERULAR FILTRATION RATE > 60.0 (>39); GLUCOSE, FASTING 77 MG/DL (70-100); POTASSIUM SERUM 3.6 MEQ/L (3.5-5.1); SODIUM LEVEL 140 MEQ/L (136-145)
[2021-06-21] MEDS: CLOTRIMAZOLE 1% TOPICAL CREAM 30GM TOP SCH ×2 (09:28→19:51)
[2021-06-21] MEDS: MULTIVITAMINS/MINERALS THERAP 1 TAB PO SCH (09:28)
[2021-06-21] MEDS: NYSTATIN 100,000 UNITS/GM TOPICAL PWD 15 GM TOP SCH ×2 (09:28→19:50)
[2021-06-21] MEDS: FOLIC ACID 1 MG TAB PO SCH (09:29)
[2021-06-21] MEDS: ENOXAPARIN 40MG/0.4ML SYRINGE (J1650 PER 10MG) SC SCH (09:30)
[2021-06-21] MEDS: NICOTINE 14 MG/24 HR TRANSDERMAL TD SCH (09:30)
[2021-06-21] MEDS: diphenhydrAMINE 25MG CAP PO PRN ×2 (09:38→19:55)
[2021-06-21] MEDS: traMADol 50 MG TAB PO PRN ×2 (09:39→20:02)
[2021-06-21] MEDS: CHOLESTYRAMINE 4 GM PWD PKT PO SCH (19:51)
[2021-06-22] MEDS: traMADol 50 MG TAB PO PRN ×2 (03:46→09:26)
[2021-06-22 03:53] VITALS: BP 124/67
[2021-06-22] MEDS: NICOTINE 14 MG/24 HR TRANSDERMAL TD SCH (09:24)
[2021-06-22] MEDS: diphenhydrAMINE 25MG CAP PO PRN (09:25)
[2021-06-22] MEDS: ENOXAPARIN 40MG/0.4ML SYRINGE (J1650 PER 10MG) SC SCH (09:25)
[2021-06-22] MEDS: MULTIVITAMINS/MINERALS THERAP 1 TAB PO SCH (09:25)
[2021-06-22] MEDS: NYSTATIN 100,000 UNITS/GM TOPICAL PWD 15 GM TOP SCH (09:27)
[2021-06-22] MEDS: FOLIC ACID 1 MG TAB PO SCH (09:27)
[2021-06-22] MEDS: CLOTRIMAZOLE 1% TOPICAL CREAM 30GM TOP SCH (09:27)
[2021-06-22] MEDS ORDERED: TRAM50TA2 PO (10:55)
[2021-06-22] MEDS ORDERED: CLOTR1CR TOP (10:55)
[2021-06-22] MEDS ORDERED: FOLI1TAB11 PO (10:55)
[2021-06-22] MEDS ORDERED: NICO14PA TD (10:55)
[2021-06-22] MEDS ORDERED: VITMTA PO (10:55)
[2021-06-22] MEDS ORDERED: NYST10006 TOP (10:55)
== END 2021-06-22 13:47 | DRG 92 ==
LOC: M ED 11:51 → M ED INP 16:14 → ENRESERV 16:45 → M MSPAV 17:40
PROVIDERS: ADMIT Internal Medicine; ATTEND Family Medicine
DX: R29.6 Repeated falls (principal); K90.49 Malabsorption due to intolerance, not elsewhere classified; R53.1 Weakness; I95.9 Hypotension, unspecified; E86.0 Dehydration; E78.5 Hyperlipidemia, unspecified; K21.9 Gastro-esophageal reflux disease without esophagitis; R53.81 Other malaise; B37.3 Candidiasis of vulva and vagina; R62.7 Adult failure to thrive; L24.A2 Irritant contact dermatitis due to fecal, urinary or dual incontinence; D53.9 Nutritional anemia, unspecified; R74.01 Elevation of levels of liver transaminase levels; R60.0 Localized edema; L89.329 Pressure ulcer of left buttock, unspecified stage; L89.319 Pressure ulcer of right buttock, unspecified stage; Z85.038 Personal history of other malignant neoplasm of large intestine; Z90.49 Acquired absence of other specified parts of digestive tract; Z87.440 Personal history of urinary (tract) infections; Z85.3 Personal history of malignant neoplasm of breast; Z85.42 Personal history of malignant neoplasm of other parts of uterus; Z79.899 Other long term (current) drug therapy; Z90.710 Acquired absence of both cervix and uterus; Z88.5 Allergy status to narcotic agent; Z88.8 Allergy status to other drugs, medicaments and biological substances; Z91.030 Bee allergy status

== ENCOUNTER 2021-07-01 13:40 | Inpatient (IN) | payer MEDICARE ==
[~2021-07-01] VITALS: Ht 162.6 cm; Wt 61.1 kg
[~2021-07-01 13:40] MED LIST changes: +CLOTR1CR TOP; +FOLI1TAB11 PO; +LOPE2CAP PO; +NYST1POW9 TOP; +TRAM50TA2 PO
[2021-07-01] MEDS ORDERED: fentaNYL 100 MCG/2 ML INJECTION IV ONE (16:30)
[2021-07-01] MEDS ORDERED: AMLO1TAB24 PO (16:52)
[2021-07-01] MEDS ORDERED: POTA1TAB14 PO (17:15)
[2021-07-01] MEDS ORDERED: NICO14PA TOP (17:44)
[2021-07-01] MEDS ORDERED: NYST1POW9 TOP (17:44)
[2021-07-01] MEDS ORDERED: VITMTA PO (17:44)
[2021-07-01] MEDS ORDERED: HOME MED LIST COMPLETE! XX SCH (17:45)
[2021-07-01 18:04] LABS: BASO # 0.1 10^3/uL (0.0-0.2); BASO % 0.8 % (0.0-1.0); EOS % 0.3 % (0.0-3.0); HEMATOCRIT 29.6 % (36.0-47.0); HEMOGLOBIN 10.2 g/dl (12.0-15.5); LYMPH # 1.5 10^3/uL (1.5-5.0); LYMPH % 17.3 % (24.0-44.0); MEAN CORPUSCULAR HEMOGLOBIN 35.5 pg (27.0-33.0); MEAN CORPUSCULAR HGB CONC 34.5 g/dl (32.0-36.5); MEAN CORPUSCULAR VOLUME 103.1 fl (80.0-96.0); MONO # 0.5 10^3/uL (0.0-0.8); MONO % 5.4 % (2.0-8.0); NEUTROPHILS # 6.6 10^3/uL (1.5-8.5); NEUTROPHILS % 75.9 % (36.0-66.0); PLATELET COUNT, AUTOMATED 217 10^3/uL (150-450); RED BLOOD COUNT 2.87 10^6/uL (4.00-5.40); WHITE BLOOD COUNT 8.7 10^3/uL (4.0-10.0)
[2021-07-01 18:29] LABS: ALBUMIN 1.7 GM/DL (3.2-5.2); ALT/SGPT 38 U/L (12-78); BILIRUBIN,TOTAL 1.7 MG/DL (0.2-1.0); BLOOD UREA NITROGEN 4 MG/DL (7-18); C REACTIVE PROTEIN QUANTITATIV 0.99 MG/DL (0.00-0.30); CALCIUM LEVEL 8.1 MG/DL (8.8-10.2); CARBON DIOXIDE LEVEL 26 MEQ/L (21-32); CHLORIDE LEVEL 106 MEQ/L (98-107); CREATININE FOR GFR 0.54 MG/DL (0.55-1.30); GLOMERULAR FILTRATION RATE > 60.0 (>39); GLUCOSE, FASTING 102 MG/DL (70-100); POTASSIUM SERUM 3.6 MEQ/L (3.5-5.1); SODIUM LEVEL 138 MEQ/L (136-145); TOTAL PROTEIN 5.6 GM/DL (6.4-8.2)
[2021-07-01 18:53] LABS: ERYTHROCYTE SEDIMENTATION RATE 46 mm/hr (0-30)
[2021-07-01] MEDS ORDERED: LOPERAMIDE 2 MG CAPLET PO PRN (22:05)
[2021-07-01] MEDS: TRIAMCINOLONE ACET 0.1% OINTMENT 15 GM TOP SCH (22:58)
[2021-07-02] MEDS: ACETAMINOPHEN 325 MG TAB PO PRN ×2 (00:18→04:48)
[2021-07-02] MEDS: CHOLESTYRAMINE 4 GM PWD PKT PO SCH (07:31)
[2021-07-02] MEDS: HEPARIN SOD (PORCINE) 5000UNITS/ML 1ML VIAL/SYRINGE SC SCH ×3 (07:32→21:57)
[2021-07-02] MEDS: MULTIVITAMINS/MINERALS THERAP 1 TAB PO SCH (07:54)
[2021-07-02] MEDS: NICOTINE 14 MG/24 HR TRANSDERMAL TOP SCH (07:55)
[2021-07-02] MEDS: TRIAMCINOLONE ACET 0.1% OINTMENT 15 GM TOP SCH ×2 (09:11→21:56)
[2021-07-02] MEDS: NYSTATIN 100,000 UNITS/GM TOPICAL PWD 15 GM TOP SCH ×2 (09:11→21:57)
[2021-07-02 09:24] LABS: HEMATOCRIT 24.9 % (36.0-47.0); HEMOGLOBIN 8.7 g/dl (12.0-15.5); MEAN CORPUSCULAR HGB CONC 34.9 g/dl (32.0-36.5); PLATELET COUNT, AUTOMATED 173 10^3/uL (150-450); RED BLOOD COUNT 2.35 10^6/uL (4.00-5.40); WHITE BLOOD COUNT 6.6 10^3/uL (4.0-10.0)
[2021-07-02 09:31] LABS: ALBUMIN 1.3 GM/DL (3.2-5.2); ALT/SGPT 31 U/L (12-78); BILIRUBIN,TOTAL 1.5 MG/DL (0.2-1.0); BLOOD UREA NITROGEN 5 MG/DL (7-18); CALCIUM LEVEL 7.6 MG/DL (8.8-10.2); CARBON DIOXIDE LEVEL 23 MEQ/L (21-32); CHLORIDE LEVEL 109 MEQ/L (98-107); GLOMERULAR FILTRATION RATE > 60.0 (>39); GLUCOSE, FASTING 80 MG/DL (70-100); MAGNESIUM LEVEL 1.9 MG/DL (1.8-2.4); POTASSIUM SERUM 3.9 MEQ/L (3.5-5.1); SODIUM LEVEL 138 MEQ/L (136-145); TOTAL PROTEIN 4.9 GM/DL (6.4-8.2)
[2021-07-02 09:58] LABS: BASOPHILS 2 % (0-1); LYMPHOCYTES 20 % (16-44); MONOCYTES 2 % (0-5); NEUTROPHILS 75 % (28-66)
[2021-07-02 10:00] LABS: PLATELET ESTIMATE NORMAL (NORMAL)
[2021-07-02] MEDS ORDERED: traMADol 50 MG TAB PO PRN (10:10)
[2021-07-02] MEDS ORDERED: PILL CUTTER 1 EACH XX PRN (10:20)
[2021-07-02 10:55] LABS: INR 1.16; PROTHROMBIN TIME 15.2 SECONDS (12.7-14.5)
[2021-07-02 11:30] VITALS: BP 105/56
[2021-07-02 12:19] LABS: APPEARANCE, URINE HAZY (CLEAR); BACTERIA, URINE AUTO 1+ (NEGATIVE); BILIRUBIN, URINE AUTO 1+ (NEGATIVE); BLOOD, URINE BLOOD NEGATIVE (NEGATIVE); COLOR, URINE AMBER (YELLOW); GLUCOSE, URINE (UA) AUTO NEGATIVE (NEGATIVE); KETONE, URINE AUTO NEGATIVE (NEGATIVE); LEUKOCYTE ESTERASE, URINE AUTO NEGATIVE (NEGATIVE); MUCUS, URINE LARGE (NEGATIVE); NITRITE, URINE AUTO NEGATIVE (NEGATIVE); PROTEIN, URINE AUTO 1+ mg/dL (NEGATIVE); RBC, URINE AUTO 2 /HPF (0-3); SPECIFIC GRAVITY URINE AUTO 1.023 (1.002-1.035); SQUAMOUS EPITHELIAL CELL UR AU 16 /HPF (0-6); WBC, URINE AUTO 6 /HPF (0-3)
[2021-07-02 14:00] VITALS: BP 105/56
[2021-07-02 15:22] VITALS: O2SAT 97
[2021-07-02] MEDS: traMADol 50 MG TAB PO PRN ×2 (16:09→21:58)
[2021-07-02 18:00] VITALS: BP 106/58
[2021-07-02 21:33] VITALS: BP 115/63
[2021-07-03] VITALS (19 sets, daily range): BP systolic 99–137; BP diastolic 46–73; O2SAT 86–93
[2021-07-03] MEDS: traMADol 50 MG TAB PO PRN ×3 (02:21→21:04)
[2021-07-03] MEDS ORDERED: NS 500 ML IV ONE (02:25)
[2021-07-03 05:16] LABS: HEMATOCRIT 22.3 % (36.0-47.0); HEMOGLOBIN 7.5 g/dl (12.0-15.5); MEAN CORPUSCULAR HEMOGLOBIN 35.2 pg (27.0-33.0); MEAN CORPUSCULAR HGB CONC 33.6 g/dl (32.0-36.5); MEAN CORPUSCULAR VOLUME 104.7 fl (80.0-96.0); PLATELET COUNT, AUTOMATED 163 10^3/uL (150-450); RED BLOOD COUNT 2.13 10^6/uL (4.00-5.40); WHITE BLOOD COUNT 5.2 10^3/uL (4.0-10.0)
[2021-07-03 05:36] LABS: ATYPICAL LYMPH 3 % (0-5); BASOPHILS 1 % (0-1); EOSINOPHILS 2 % (0-3); LYMPHOCYTES 24 % (16-44); MONOCYTES 4 % (0-5); NEUTROPHILS 66 % (28-66)
[2021-07-03 05:37] LABS: PLATELET ESTIMATE NORMAL (NORMAL)
[2021-07-03 05:38] LABS: ANISOCYTOSIS 1+; POIKILOCYTOSIS 1+; POLYCHROMASIA 1+; TARGET CELLS 1+
[2021-07-03 05:46] LABS: BLOOD UREA NITROGEN 6 MG/DL (7-18); C REACTIVE PROTEIN QUANTITATIV 1.07 MG/DL (0.00-0.30); CALCIUM LEVEL 7.4 MG/DL (8.8-10.2); CARBON DIOXIDE LEVEL 26 MEQ/L (21-32); CHLORIDE LEVEL 108 MEQ/L (98-107); CREATININE FOR GFR 0.26 MG/DL (0.55-1.30); FERRITIN 310 NG/ML (8-252); GLOMERULAR FILTRATION RATE > 60.0 (>39); GLUCOSE, FASTING 71 MG/DL (70-100); IRON (FE) 65 UG/DL (50-170); MAGNESIUM LEVEL 1.8 MG/DL (1.8-2.4); PERCENT SATURATION 112.1 % (13.2-45.0); POTASSIUM SERUM 3.2 MEQ/L (3.5-5.1); SODIUM LEVEL 138 MEQ/L (136-145); TOTAL IRON BINDING CAPACITY 58 UG/DL (250-450)
[2021-07-03] MEDS: CHOLESTYRAMINE 4 GM PWD PKT PO SCH ×2 (06:00→06:07)
[2021-07-03] MEDS: HEPARIN SOD (PORCINE) 5000UNITS/ML 1ML VIAL/SYRINGE SC SCH ×3 (06:07→21:03)
[2021-07-03] MEDS ORDERED: POTASSIUM CHLORIDE 10MEQ SR TABLET PO ONE (07:45)
[2021-07-03] MEDS: ONDANSETRON 4MG/2ML VIAL IV PRN (09:25)
[2021-07-03] MEDS: NICOTINE 14 MG/24 HR TRANSDERMAL TOP SCH (09:26)
[2021-07-03] MEDS: TRIAMCINOLONE ACET 0.1% OINTMENT 15 GM TOP SCH ×2 (09:26→21:03)
[2021-07-03] MEDS: NYSTATIN 100,000 UNITS/GM TOPICAL PWD 15 GM TOP SCH ×2 (09:26→21:05)
[2021-07-03] MEDS: MULTIVITAMINS/MINERALS THERAP 1 TAB PO SCH (10:03)
[2021-07-03 11:49] LABS: ALBUMIN 1.2 GM/DL (3.2-5.2); ALT/SGPT 30 U/L (12-78); BILIRUBIN,DIRECT 0.9 MG/DL (0.0-0.2); BILIRUBIN,TOTAL 1.4 MG/DL (0.2-1.0); TOTAL PROTEIN 4.1 GM/DL (6.4-8.2)
[2021-07-03] MEDS ORDERED: FUROSEMIDE 40MG/4ML VIAL (J1940) IV ONE (20:00)
[2021-07-03] MEDS: POTASSIUM CHLORIDE 10MEQ SR TABLET PO ONE ×2 (21:02→21:04)
[2021-07-04 02:00] VITALS: BP 115/61
[2021-07-04] MEDS: HEPARIN SOD (PORCINE) 5000UNITS/ML 1ML VIAL/SYRINGE SC SCH ×3 (05:03→20:23)
[2021-07-04] MEDS: traMADol 50 MG TAB PO PRN ×2 (05:04→20:22)
[2021-07-04] MEDS: CHOLESTYRAMINE 4 GM PWD PKT PO SCH (05:06)
[2021-07-04 06:00] VITALS: BP 114/62
[2021-07-04 07:01] LABS: BASO # 0.1 10^3/uL (0.0-0.2); BASO % 0.8 % (0.0-1.0); EOS # 0.1 10^3/uL (0.0-0.5); EOS % 2.1 % (0.0-3.0); HEMATOCRIT 35.1 % (36.0-47.0); LYMPH % 32.7 % (24.0-44.0); MEAN CORPUSCULAR HEMOGLOBIN 33.2 pg (27.0-33.0); MEAN CORPUSCULAR HGB CONC 34.8 g/dl (32.0-36.5); MEAN CORPUSCULAR VOLUME 95.6 fl (80.0-96.0); MONO # 0.5 10^3/uL (0.0-0.8); MONO % 7.3 % (2.0-8.0); NEUTROPHILS # 3.5 10^3/uL (1.5-8.5); NEUTROPHILS % 56.8 % (36.0-66.0); PLATELET COUNT, AUTOMATED 157 10^3/uL (150-450); RED BLOOD COUNT 3.67 10^6/uL (4.00-5.40); WHITE BLOOD COUNT 6.1 10^3/uL (4.0-10.0)
[2021-07-04 07:08] LABS: HEMOGLOBIN 12.2 g/dl (12.0-15.5)
[2021-07-04 07:30] LABS: ALBUMIN 1.3 GM/DL (3.2-5.2); ALT/SGPT 34 U/L (12-78); BILIRUBIN,DIRECT 1.2 MG/DL (0.0-0.2); BILIRUBIN,TOTAL 1.9 MG/DL (0.2-1.0); BLOOD UREA NITROGEN 5 MG/DL (7-18); CALCIUM LEVEL 7.4 MG/DL (8.8-10.2); CARBON DIOXIDE LEVEL 26 MEQ/L (21-32); CHLORIDE LEVEL 108 MEQ/L (98-107); CREATININE FOR GFR 0.41 MG/DL (0.55-1.30); GLOMERULAR FILTRATION RATE > 60.0 (>39); GLUCOSE, FASTING 84 MG/DL (70-100); MAGNESIUM LEVEL 1.7 MG/DL (1.8-2.4); POTASSIUM SERUM 3.5 MEQ/L (3.5-5.1); SODIUM LEVEL 138 MEQ/L (136-145); TOTAL PROTEIN 4.4 GM/DL (6.4-8.2)
[2021-07-04] MEDS: NICOTINE 14 MG/24 HR TRANSDERMAL TOP SCH (08:24)
[2021-07-04] MEDS: TRIAMCINOLONE ACET 0.1% OINTMENT 15 GM TOP SCH ×2 (08:24→20:22)
[2021-07-04] MEDS: MULTIVITAMINS/MINERALS THERAP 1 TAB PO SCH (08:24)
[2021-07-04] MEDS: NYSTATIN 100,000 UNITS/GM TOPICAL PWD 15 GM TOP SCH ×2 (08:24→20:22)
[2021-07-04] MEDS: ONDANSETRON 4MG/2ML VIAL IV PRN (08:29)
[2021-07-04] MEDS ORDERED: POTASSIUM CHLORIDE 10MEQ SR TABLET PO ONE (08:30)
[2021-07-04] MEDS ORDERED: MAG SULF 1GM/100ML (MAG RUN) 1 GM in IV 1 EA IV ONE (08:30)
[2021-07-04] MEDS ORDERED: FUROSEMIDE 40 MG TAB PO ONE (08:30)
[2021-07-04 10:12] LABS: FOLATE 8.7 NG/ML (>5.4)
[2021-07-04 14:00] VITALS: BP 113/60
[2021-07-04 22:00] VITALS: BP 112/59
[2021-07-05] MEDS: traMADol 50 MG TAB PO PRN ×3 (01:16→22:46)
[2021-07-05] MEDS: HEPARIN SOD (PORCINE) 5000UNITS/ML 1ML VIAL/SYRINGE SC SCH ×3 (05:14→22:12)
[2021-07-05] MEDS: CHOLESTYRAMINE 4 GM PWD PKT PO SCH (05:14)
[2021-07-05 06:00] VITALS: BP 112/59
[2021-07-05 06:49] LABS: BASO # 0.1 10^3/uL (0.0-0.2); BASO % 0.9 % (0.0-1.0); EOS # 0.1 10^3/uL (0.0-0.5); EOS % 2.1 % (0.0-3.0); HEMATOCRIT 33.8 % (36.0-47.0); HEMOGLOBIN 12.1 g/dl (12.0-15.5); LYMPH # 2.4 10^3/uL (1.5-5.0); LYMPH % 41.7 % (24.0-44.0); MEAN CORPUSCULAR HEMOGLOBIN 34.6 pg (27.0-33.0); MEAN CORPUSCULAR HGB CONC 35.8 g/dl (32.0-36.5); MEAN CORPUSCULAR VOLUME 96.6 fl (80.0-96.0); MONO # 0.5 10^3/uL (0.0-0.8); MONO % 7.9 % (2.0-8.0); NEUTROPHILS # 2.7 10^3/uL (1.5-8.5); NEUTROPHILS % 47.2 % (36.0-66.0); PLATELET COUNT, AUTOMATED 152 10^3/uL (150-450); WHITE BLOOD COUNT 5.7 10^3/uL (4.0-10.0)
[2021-07-05 07:18] LABS: ALBUMIN 1.3 GM/DL (3.2-5.2); ALT/SGPT 31 U/L (12-78); BILIRUBIN,DIRECT 1.2 MG/DL (0.0-0.2); BILIRUBIN,TOTAL 1.7 MG/DL (0.2-1.0); BLOOD UREA NITROGEN 5 MG/DL (7-18); C REACTIVE PROTEIN QUANTITATIV 1.33 MG/DL (0.00-0.30); CALCIUM LEVEL 7.6 MG/DL (8.8-10.2); CARBON DIOXIDE LEVEL 29 MEQ/L (21-32); CHLORIDE LEVEL 105 MEQ/L (98-107); CREATININE FOR GFR 0.28 MG/DL (0.55-1.30); GLOMERULAR FILTRATION RATE > 60.0 (>39); GLUCOSE, FASTING 58 MG/DL (70-100); MAGNESIUM LEVEL 1.7 MG/DL (1.8-2.4); POTASSIUM SERUM 3.4 MEQ/L (3.5-5.1); SODIUM LEVEL 138 MEQ/L (136-145); TOTAL PROTEIN 4.4 GM/DL (6.4-8.2)
[2021-07-05 08:00] VITALS: O2SAT 93
[2021-07-05] MEDS: MULTIVITAMINS/MINERALS THERAP 1 TAB PO SCH (09:18)
[2021-07-05] MEDS: NYSTATIN 100,000 UNITS/GM TOPICAL PWD 15 GM TOP SCH ×2 (09:18→22:12)
[2021-07-05] MEDS: NICOTINE 14 MG/24 HR TRANSDERMAL TOP SCH (09:18)
[2021-07-05] MEDS: TRIAMCINOLONE ACET 0.1% OINTMENT 15 GM TOP SCH ×2 (09:18→22:13)
[2021-07-05 14:00] VITALS: BP 108/59
[2021-07-05 18:10] LABS: VITAMIN B12 LEVEL 1142 PG/ML (247-911)
[2021-07-05 21:39] VITALS: BP 115/56
[2021-07-05 22:00] VITALS: O2SAT 91
[2021-07-06] MEDS: traMADol 50 MG TAB PO PRN ×3 (03:37→22:02)
[2021-07-06] MEDS: HEPARIN SOD (PORCINE) 5000UNITS/ML 1ML VIAL/SYRINGE SC SCH ×3 (05:36→22:00)
[2021-07-06 06:00] VITALS: BP 117/57
[2021-07-06 06:43] LABS: BASO % 0.8 % (0.0-1.0); EOS # 0.1 10^3/uL (0.0-0.5); EOS % 2.7 % (0.0-3.0); HEMATOCRIT 34.7 % (36.0-47.0); HEMOGLOBIN 12.1 g/dl (12.0-15.5); LYMPH # 2.2 10^3/uL (1.5-5.0); LYMPH % 41.5 % (24.0-44.0); MEAN CORPUSCULAR HEMOGLOBIN 34.1 pg (27.0-33.0); MEAN CORPUSCULAR HGB CONC 34.9 g/dl (32.0-36.5); MEAN CORPUSCULAR VOLUME 97.7 fl (80.0-96.0); MONO # 0.4 10^3/uL (0.0-0.8); MONO % 8.2 % (2.0-8.0); NEUTROPHILS # 2.5 10^3/uL (1.5-8.5); NEUTROPHILS % 46.6 % (36.0-66.0); PLATELET COUNT, AUTOMATED 148 10^3/uL (150-450); RED BLOOD COUNT 3.55 10^6/uL (4.00-5.40); WHITE BLOOD COUNT 5.3 10^3/uL (4.0-10.0)
[2021-07-06 07:12] LABS: ALBUMIN 1.3 GM/DL (3.2-5.2); ALT/SGPT 33 U/L (12-78); BILIRUBIN,DIRECT 1.2 MG/DL (0.0-0.2); BILIRUBIN,TOTAL 1.6 MG/DL (0.2-1.0); BLOOD UREA NITROGEN 5 MG/DL (7-18); C REACTIVE PROTEIN QUANTITATIV 1.26 MG/DL (0.00-0.30); CALCIUM LEVEL 7.5 MG/DL (8.8-10.2); CARBON DIOXIDE LEVEL 30 MEQ/L (21-32); CHLORIDE LEVEL 101 MEQ/L (98-107); CREATININE FOR GFR 0.41 MG/DL (0.55-1.30); GLOMERULAR FILTRATION RATE > 60.0 (>39); GLUCOSE, FASTING 69 MG/DL (70-100); MAGNESIUM LEVEL 1.7 MG/DL (1.8-2.4); POTASSIUM SERUM 3.5 MEQ/L (3.5-5.1); SODIUM LEVEL 135 MEQ/L (136-145); TOTAL PROTEIN 4.4 GM/DL (6.4-8.2)
[2021-07-06] MEDS ORDERED: MAGNESIUM OXIDE 400MG TAB (MAG-OX) PO ONE (08:45)
[2021-07-06] MEDS: MULTIVITAMINS/MINERALS THERAP 1 TAB PO SCH (08:56)
[2021-07-06] MEDS: NYSTATIN 100,000 UNITS/GM TOPICAL PWD 15 GM TOP SCH (08:56)
[2021-07-06] MEDS: NICOTINE 14 MG/24 HR TRANSDERMAL TOP SCH (08:56)
[2021-07-06] MEDS: TRIAMCINOLONE ACET 0.1% OINTMENT 15 GM TOP SCH (08:57)
[2021-07-06] MEDS: CHOLESTYRAMINE 4 GM PWD PKT PO SCH (14:38)
[2021-07-06] MEDS: CLOTRIMAZOLE 1% TOPICAL CREAM 30GM TOP SCH (22:00)
[2021-07-06 23:59] VITALS: BP 114/57
[2021-07-07] MEDS: HEPARIN SOD (PORCINE) 5000UNITS/ML 1ML VIAL/SYRINGE SC SCH ×3 (05:18→22:27)
[2021-07-07 06:00] VITALS: BP 112/48
[2021-07-07 06:33] LABS: BASO # 0.1 10^3/uL (0.0-0.2); BASO % 1.1 % (0.0-1.0); EOS # 0.2 10^3/uL (0.0-0.5); EOS % 3.2 % (0.0-3.0); HEMATOCRIT 34.8 % (36.0-47.0); HEMOGLOBIN 12.1 g/dl (12.0-15.5); LYMPH % 43.4 % (24.0-44.0); MEAN CORPUSCULAR HEMOGLOBIN 33.4 pg (27.0-33.0); MEAN CORPUSCULAR HGB CONC 34.8 g/dl (32.0-36.5); MEAN CORPUSCULAR VOLUME 96.1 fl (80.0-96.0); MONO # 0.4 10^3/uL (0.0-0.8); MONO % 9.1 % (2.0-8.0); PLATELET COUNT, AUTOMATED 151 10^3/uL (150-450); RED BLOOD COUNT 3.62 10^6/uL (4.00-5.40); WHITE BLOOD COUNT 4.7 10^3/uL (4.0-10.0)
[2021-07-07 07:09] LABS: ALBUMIN 1.3 GM/DL (3.2-5.2); ALT/SGPT 31 U/L (12-78); BILIRUBIN,DIRECT 0.7 MG/DL (0.0-0.2); BILIRUBIN,TOTAL 1.1 MG/DL (0.2-1.0); BLOOD UREA NITROGEN 4 MG/DL (7-18); C REACTIVE PROTEIN QUANTITATIV 1.22 MG/DL (0.00-0.30); CALCIUM LEVEL 8.1 MG/DL (8.8-10.2); CARBON DIOXIDE LEVEL 29 MEQ/L (21-32); CHLORIDE LEVEL 103 MEQ/L (98-107); CREATININE FOR GFR 0.46 MG/DL (0.55-1.30); GLOMERULAR FILTRATION RATE > 60.0 (>39); GLUCOSE, FASTING 69 MG/DL (70-100); MAGNESIUM LEVEL 1.7 MG/DL (1.8-2.4); POTASSIUM SERUM 3.5 MEQ/L (3.5-5.1); SODIUM LEVEL 137 MEQ/L (136-145); TOTAL PROTEIN 4.4 GM/DL (6.4-8.2)
[2021-07-07] MEDS ORDERED: MAGNESIUM OXIDE 400MG TAB (MAG-OX) PO ONE (07:30)
[2021-07-07] MEDS: MULTIVITAMINS/MINERALS THERAP 1 TAB PO SCH (08:57)
[2021-07-07] MEDS: NICOTINE 14 MG/24 HR TRANSDERMAL TOP SCH (08:57)
[2021-07-07] MEDS: CLOTRIMAZOLE 1% TOPICAL CREAM 30GM TOP SCH ×2 (08:57→22:27)
[2021-07-07] MEDS: CHOLESTYRAMINE 4 GM PWD PKT PO SCH (13:44)
[2021-07-07] MEDS: traMADol 50 MG TAB PO PRN ×2 (15:36→23:28)
[2021-07-08 05:35] VITALS: BP 121/75
[2021-07-08] MEDS: HEPARIN SOD (PORCINE) 5000UNITS/ML 1ML VIAL/SYRINGE SC SCH ×3 (05:45→20:22)
[2021-07-08 06:44] LABS: BASO % 0.7 % (0.0-1.0); EOS # 0.1 10^3/uL (0.0-0.5); EOS % 2.4 % (0.0-3.0); HEMATOCRIT 36.6 % (36.0-47.0); HEMOGLOBIN 12.7 g/dl (12.0-15.5); LYMPH # 2.4 10^3/uL (1.5-5.0); LYMPH % 39.6 % (24.0-44.0); MEAN CORPUSCULAR HEMOGLOBIN 33.6 pg (27.0-33.0); MEAN CORPUSCULAR HGB CONC 34.7 g/dl (32.0-36.5); MEAN CORPUSCULAR VOLUME 96.8 fl (80.0-96.0); MONO # 0.6 10^3/uL (0.0-0.8); MONO % 10.4 % (2.0-8.0); NEUTROPHILS # 2.8 10^3/uL (1.5-8.5); NEUTROPHILS % 46.6 % (36.0-66.0); PLATELET COUNT, AUTOMATED 160 10^3/uL (150-450); RED BLOOD COUNT 3.78 10^6/uL (4.00-5.40); WHITE BLOOD COUNT 5.9 10^3/uL (4.0-10.0)
[2021-07-08 07:05] LABS: ALBUMIN 1.4 GM/DL (3.2-5.2); ALT/SGPT 33 U/L (12-78); BILIRUBIN,DIRECT 0.6 MG/DL (0.0-0.2); BLOOD UREA NITROGEN 4 MG/DL (7-18); C REACTIVE PROTEIN QUANTITATIV 1.18 MG/DL (0.00-0.30); CALCIUM LEVEL 8.5 MG/DL (8.8-10.2); CARBON DIOXIDE LEVEL 26 MEQ/L (21-32); CHLORIDE LEVEL 103 MEQ/L (98-107); GLOMERULAR FILTRATION RATE > 60.0 (>39); GLUCOSE, FASTING 75 MG/DL (70-100); MAGNESIUM LEVEL 1.8 MG/DL (1.8-2.4); POTASSIUM SERUM 3.5 MEQ/L (3.5-5.1); SODIUM LEVEL 138 MEQ/L (136-145); TOTAL PROTEIN 4.9 GM/DL (6.4-8.2)
[2021-07-08] MEDS: NICOTINE 14 MG/24 HR TRANSDERMAL TOP SCH (09:06)
[2021-07-08] MEDS: MULTIVITAMINS/MINERALS THERAP 1 TAB PO SCH (09:07)
[2021-07-08] MEDS: MAGNESIUM OXIDE 400MG TAB (MAG-OX) PO SCH (09:07)
[2021-07-08] MEDS: CLOTRIMAZOLE 1% TOPICAL CREAM 30GM TOP SCH ×2 (09:07→20:21)
[2021-07-08] MEDS: traMADol 50 MG TAB PO PRN ×2 (09:14→20:23)
[2021-07-08] MEDS: CHOLESTYRAMINE 4 GM PWD PKT PO SCH (14:10)
[2021-07-09] MEDS: HEPARIN SOD (PORCINE) 5000UNITS/ML 1ML VIAL/SYRINGE SC SCH ×3 (05:02→21:16)
[2021-07-09 06:00] VITALS: BP 119/55
[2021-07-09 07:00] LABS: BASO % 0.7 % (0.0-1.0); EOS # 0.1 10^3/uL (0.0-0.5); EOS % 1.1 % (0.0-3.0); HEMATOCRIT 32.7 % (36.0-47.0); HEMOGLOBIN 11.5 g/dl (12.0-15.5); LYMPH # 1.6 10^3/uL (1.5-5.0); LYMPH % 28.3 % (24.0-44.0); MEAN CORPUSCULAR HEMOGLOBIN 34.5 pg (27.0-33.0); MEAN CORPUSCULAR HGB CONC 35.2 g/dl (32.0-36.5); MEAN CORPUSCULAR VOLUME 98.2 fl (80.0-96.0); MONO # 0.7 10^3/uL (0.0-0.8); MONO % 11.8 % (2.0-8.0); NEUTROPHILS # 3.3 10^3/uL (1.5-8.5); NEUTROPHILS % 57.4 % (36.0-66.0); PLATELET COUNT, AUTOMATED 150 10^3/uL (150-450); RED BLOOD COUNT 3.33 10^6/uL (4.00-5.40); WHITE BLOOD COUNT 5.7 10^3/uL (4.0-10.0)
[2021-07-09 07:40] LABS: ALBUMIN 1.2 GM/DL (3.2-5.2); ALT/SGPT 28 U/L (12-78); BLOOD UREA NITROGEN 4 MG/DL (7-18); C REACTIVE PROTEIN QUANTITATIV 1.29 MG/DL (0.00-0.30); CALCIUM LEVEL 7.9 MG/DL (8.8-10.2); CARBON DIOXIDE LEVEL 23 MEQ/L (21-32); CHLORIDE LEVEL 107 MEQ/L (98-107); CREATININE FOR GFR 0.36 MG/DL (0.55-1.30); GLOMERULAR FILTRATION RATE > 60.0 (>39); GLUCOSE, FASTING 70 MG/DL (70-100); MAGNESIUM LEVEL 1.8 MG/DL (1.8-2.4); POTASSIUM SERUM 4.1 MEQ/L (3.5-5.1); SODIUM LEVEL 136 MEQ/L (136-145); TOTAL PROTEIN 4.3 GM/DL (6.4-8.2)
[2021-07-09 07:41] LABS: BILIRUBIN,DIRECT 0.5 MG/DL (0.0-0.2)
[2021-07-09] MEDS: MULTIVITAMINS/MINERALS THERAP 1 TAB PO SCH (09:28)
[2021-07-09] MEDS: MAGNESIUM OXIDE 400MG TAB (MAG-OX) PO SCH (09:28)
[2021-07-09] MEDS: CLOTRIMAZOLE 1% TOPICAL CREAM 30GM TOP SCH ×2 (09:29→21:19)
[2021-07-09] MEDS: NICOTINE 14 MG/24 HR TRANSDERMAL TOP SCH (09:29)
[2021-07-09] MEDS: CHOLESTYRAMINE 4 GM PWD PKT PO SCH (15:15)
[2021-07-09] MEDS: traMADol 50 MG TAB PO PRN (21:18)
[2021-07-10] MEDS: HEPARIN SOD (PORCINE) 5000UNITS/ML 1ML VIAL/SYRINGE SC SCH ×3 (05:49→21:14)
[2021-07-10 06:00] VITALS: BP 115/53
[2021-07-10] MEDS: MULTIVITAMINS/MINERALS THERAP 1 TAB PO SCH (09:27)
[2021-07-10] MEDS: MAGNESIUM OXIDE 400MG TAB (MAG-OX) PO SCH (09:27)
[2021-07-10] MEDS: NICOTINE 14 MG/24 HR TRANSDERMAL TOP SCH (09:27)
[2021-07-10] MEDS: CLOTRIMAZOLE 1% TOPICAL CREAM 30GM TOP SCH ×2 (09:28→21:14)
[2021-07-10] MEDS: CHOLESTYRAMINE 4 GM PWD PKT PO SCH (14:16)
[2021-07-10] MEDS ORDERED: FLUCONAZOLE 50MG TABLET PO ONE (16:00)
[2021-07-10] MEDS: traMADol 50 MG TAB PO PRN (17:56)
[2021-07-11] MEDS: traMADol 50 MG TAB PO PRN ×3 (01:26→21:24)
[2021-07-11] MEDS: HEPARIN SOD (PORCINE) 5000UNITS/ML 1ML VIAL/SYRINGE SC SCH ×3 (05:19→21:25)
[2021-07-11 05:56] VITALS: BP_SYST 113; BP_SYST 115; BP_DIAS 43; BP_DIAS 53
[2021-07-11] MEDS: NICOTINE 14 MG/24 HR TRANSDERMAL TOP SCH (09:15)
[2021-07-11] MEDS: MULTIVITAMINS/MINERALS THERAP 1 TAB PO SCH (09:15)
[2021-07-11] MEDS: MAGNESIUM OXIDE 400MG TAB (MAG-OX) PO SCH (09:15)
[2021-07-11] MEDS: CLOTRIMAZOLE 1% TOPICAL CREAM 30GM TOP SCH (09:16)
[2021-07-11] MEDS ORDERED: ONDANSETRON 4MG TAB PO PRN (11:10)
[2021-07-11] MEDS: CHOLESTYRAMINE 4 GM PWD PKT PO SCH (13:06)
[2021-07-12] MEDS: CLOTRIMAZOLE 1% TOPICAL CREAM 30GM TOP SCH ×2 (00:54→09:08)
[2021-07-12] MEDS: HEPARIN SOD (PORCINE) 5000UNITS/ML 1ML VIAL/SYRINGE SC SCH ×3 (05:46→20:50)
[2021-07-12] MEDS: traMADol 50 MG TAB PO PRN ×3 (05:47→20:51)
[2021-07-12 06:00] VITALS: BP 138/59
[2021-07-12] MEDS: NICOTINE 14 MG/24 HR TRANSDERMAL TOP SCH (09:07)
[2021-07-12] MEDS: MULTIVITAMINS/MINERALS THERAP 1 TAB PO SCH (09:07)
[2021-07-12] MEDS: MAGNESIUM OXIDE 400MG TAB (MAG-OX) PO SCH (09:07)
[2021-07-12] MEDS: CHOLESTYRAMINE 4 GM PWD PKT PO SCH (14:12)
[2021-07-13] MEDS: CLOTRIMAZOLE 1% TOPICAL CREAM 30GM TOP SCH ×3 (00:04→22:41)
[2021-07-13] MEDS: traMADol 50 MG TAB PO PRN ×3 (04:33→23:02)
[2021-07-13] MEDS ORDERED: diphenhydrAMINE 25MG CAP PO ONE (05:00)
[2021-07-13 05:47] VITALS: BP 119/75
[2021-07-13] MEDS: HEPARIN SOD (PORCINE) 5000UNITS/ML 1ML VIAL/SYRINGE SC SCH ×3 (05:58→22:40)
[2021-07-13 06:24] LABS: BASO # 0.1 10^3/uL (0.0-0.2); EOS # 0.2 10^3/uL (0.0-0.5); EOS % 2.9 % (0.0-3.0); HEMATOCRIT 31.6 % (36.0-47.0); HEMOGLOBIN 10.8 g/dl (12.0-15.5); LYMPH % 38.6 % (24.0-44.0); MEAN CORPUSCULAR HEMOGLOBIN 34.3 pg (27.0-33.0); MEAN CORPUSCULAR HGB CONC 34.2 g/dl (32.0-36.5); MEAN CORPUSCULAR VOLUME 100.3 fl (80.0-96.0); MONO # 0.6 10^3/uL (0.0-0.8); MONO % 11.6 % (2.0-8.0); NEUTROPHILS # 2.4 10^3/uL (1.5-8.5); NEUTROPHILS % 45.7 % (36.0-66.0); PLATELET COUNT, AUTOMATED 161 10^3/uL (150-450); RED BLOOD COUNT 3.15 10^6/uL (4.00-5.40); WHITE BLOOD COUNT 5.2 10^3/uL (4.0-10.0)
[2021-07-13 06:47] LABS: BLOOD UREA NITROGEN 4 MG/DL (7-18); CALCIUM LEVEL 8.2 MG/DL (8.8-10.2); CARBON DIOXIDE LEVEL 27 MEQ/L (21-32); CHLORIDE LEVEL 103 MEQ/L (98-107); CREATININE FOR GFR 0.46 MG/DL (0.55-1.30); GLOMERULAR FILTRATION RATE > 60.0 (>39); GLUCOSE, FASTING 69 MG/DL (70-100); POTASSIUM SERUM 4.4 MEQ/L (3.5-5.1); SODIUM LEVEL 137 MEQ/L (136-145)
[2021-07-13] MEDS: MAGNESIUM OXIDE 400MG TAB (MAG-OX) PO SCH (09:15)
[2021-07-13] MEDS: MULTIVITAMINS/MINERALS THERAP 1 TAB PO SCH (09:15)
[2021-07-13] MEDS: NICOTINE 14 MG/24 HR TRANSDERMAL TOP SCH (09:15)
[2021-07-13] MEDS: CHOLESTYRAMINE 4 GM PWD PKT PO SCH (15:10)
[2021-07-13] MEDS ORDERED: MOM 30ML SUSPENSION UDC PO ONE (16:25)
[2021-07-13] MEDS ORDERED: BISACODYL 10 MG SUPP PR ONE (16:25)
[2021-07-14] MEDS: traMADol 50 MG TAB PO PRN ×2 (03:16→21:19)
[2021-07-14] MEDS ORDERED: diphenhydrAMINE 25MG CAP PO PRN (03:20)
[2021-07-14] MEDS: HEPARIN SOD (PORCINE) 5000UNITS/ML 1ML VIAL/SYRINGE SC SCH ×3 (05:35→21:19)
[2021-07-14 05:50] VITALS: BP 119/53
[2021-07-14 06:30] LABS: HEMATOCRIT 32.8 % (36.0-47.0); HEMOGLOBIN 11.3 g/dl (12.0-15.5); MEAN CORPUSCULAR HEMOGLOBIN 33.9 pg (27.0-33.0); MEAN CORPUSCULAR HGB CONC 34.5 g/dl (32.0-36.5); MEAN CORPUSCULAR VOLUME 98.5 fl (80.0-96.0); PLATELET COUNT, AUTOMATED 172 10^3/uL (150-450); RED BLOOD COUNT 3.33 10^6/uL (4.00-5.40); WHITE BLOOD COUNT 6.1 10^3/uL (4.0-10.0)
[2021-07-14 06:59] LABS: BLOOD UREA NITROGEN 4 MG/DL (7-18); CALCIUM LEVEL 8.1 MG/DL (8.8-10.2); CARBON DIOXIDE LEVEL 28 MEQ/L (21-32); CHLORIDE LEVEL 104 MEQ/L (98-107); CREATININE FOR GFR 0.41 MG/DL (0.55-1.30); GLOMERULAR FILTRATION RATE > 60.0 (>39); GLUCOSE, FASTING 64 MG/DL (70-100); MAGNESIUM LEVEL 2.1 MG/DL (1.8-2.4); POTASSIUM SERUM 3.5 MEQ/L (3.5-5.1); SODIUM LEVEL 139 MEQ/L (136-145)
[2021-07-14 08:16] LABS: ANISOCYTOSIS 2+; ATYPICAL LYMPH 2 % (0-5); LYMPHOCYTES 32 % (16-44); MONOCYTES 9 % (0-5); NEUTROPHILS 57 % (28-66); PLATELET ESTIMATE NORMAL (NORMAL); SMUDGE CELLS 2+
[2021-07-14] MEDS: MULTIVITAMINS/MINERALS THERAP 1 TAB PO SCH (08:50)
[2021-07-14] MEDS: MAGNESIUM OXIDE 400MG TAB (MAG-OX) PO SCH (08:50)
[2021-07-14] MEDS: NICOTINE 14 MG/24 HR TRANSDERMAL TOP SCH (08:51)
[2021-07-14] MEDS: CLOTRIMAZOLE 1% TOPICAL CREAM 30GM TOP SCH ×2 (08:51→21:18)
[2021-07-14] MEDS: CHOLESTYRAMINE 4 GM PWD PKT PO SCH (14:35)
[2021-07-15] MEDS: traMADol 50 MG TAB PO PRN ×4 (03:06→22:43)
[2021-07-15] MEDS: HEPARIN SOD (PORCINE) 5000UNITS/ML 1ML VIAL/SYRINGE SC SCH ×3 (05:12→21:50)
[2021-07-15 06:00] VITALS: BP 124/59
[2021-07-15 06:20] LABS: HEMATOCRIT 32.1 % (36.0-47.0); HEMOGLOBIN 11.1 g/dl (12.0-15.5); MEAN CORPUSCULAR HEMOGLOBIN 33.7 pg (27.0-33.0); MEAN CORPUSCULAR HGB CONC 34.6 g/dl (32.0-36.5); MEAN CORPUSCULAR VOLUME 97.6 fl (80.0-96.0); PLATELET COUNT, AUTOMATED 174 10^3/uL (150-450); RED BLOOD COUNT 3.29 10^6/uL (4.00-5.40); WHITE BLOOD COUNT 5.3 10^3/uL (4.0-10.0)
[2021-07-15 06:47] LABS: BLOOD UREA NITROGEN 4 MG/DL (7-18); CALCIUM LEVEL 7.5 MG/DL (8.8-10.2); CARBON DIOXIDE LEVEL 30 MEQ/L (21-32); CHLORIDE LEVEL 104 MEQ/L (98-107); CREATININE FOR GFR 0.43 MG/DL (0.55-1.30); GLOMERULAR FILTRATION RATE > 60.0 (>39); GLUCOSE, FASTING 66 MG/DL (70-100); POTASSIUM SERUM 3.4 MEQ/L (3.5-5.1); SODIUM LEVEL 139 MEQ/L (136-145)
[2021-07-15 06:58] LABS: BASOPHILS 2 % (0-1); EOSINOPHILS 2 % (0-3); LYMPHOCYTES 37 % (16-44); MONOCYTES 1 % (0-5); NEUTROPHILS 58 % (28-66)
[2021-07-15 06:59] LABS: ANISOCYTOSIS 2+; PLATELET ESTIMATE NORMAL (NORMAL)
[2021-07-15] MEDS ORDERED: POTASSIUM CHLORIDE 10MEQ SR TABLET PO ONE (07:15)
[2021-07-15] MEDS: TRIAMCINOLONE ACET 0.1% CREAM 80 GM TOP SCH ×2 (09:00→21:51)
[2021-07-15] MEDS: MAGNESIUM OXIDE 400MG TAB (MAG-OX) PO SCH (09:18)
[2021-07-15] MEDS: NICOTINE 14 MG/24 HR TRANSDERMAL TOP SCH (09:18)
[2021-07-15] MEDS: MULTIVITAMINS/MINERALS THERAP 1 TAB PO SCH (09:18)
[2021-07-15] MEDS: CLOTRIMAZOLE 1% TOPICAL CREAM 30GM TOP SCH ×2 (09:19→21:51)
[2021-07-15 09:22] LABS: C REACTIVE PROTEIN QUANTITATIV 0.96 MG/DL (0.00-0.30)
[2021-07-15] MEDS: predniSONE 10 MG TAB PO SCH (14:20)
[2021-07-15] MEDS: VANICREAM MOISTURIZING SKIN CREAM 113GM TUBE TOP SCH ×2 (14:20→21:50)
[2021-07-15] MEDS: CHOLESTYRAMINE 4 GM PWD PKT PO SCH (14:21)
[2021-07-16] MEDS: traMADol 50 MG TAB PO PRN ×3 (03:37→21:19)
[2021-07-16 04:45] VITALS: BP_SYST 113; BP_SYST 128; BP_DIAS 55; BP_DIAS 60
[2021-07-16] MEDS: HEPARIN SOD (PORCINE) 5000UNITS/ML 1ML VIAL/SYRINGE SC SCH ×3 (05:33→21:17)
[2021-07-16 05:34] VITALS: BP 142/77
[2021-07-16 05:35] VITALS: BP 131/73
[2021-07-16 05:42] VITALS: BP 78/47
[2021-07-16] MEDS ORDERED: SODIUM CHLORIDE 0.9% 1000ML IV ONE (05:55)
[2021-07-16 06:45] LABS: BASO % 0.2 % (0.0-1.0); HEMATOCRIT 33.4 % (36.0-47.0); HEMOGLOBIN 11.3 g/dl (12.0-15.5); LYMPH # 1.8 10^3/uL (1.5-5.0); LYMPH % 39.2 % (24.0-44.0); MEAN CORPUSCULAR HEMOGLOBIN 33.5 pg (27.0-33.0); MEAN CORPUSCULAR HGB CONC 33.8 g/dl (32.0-36.5); MEAN CORPUSCULAR VOLUME 99.1 fl (80.0-96.0); MONO # 0.3 10^3/uL (0.0-0.8); MONO % 5.5 % (2.0-8.0); NEUTROPHILS # 2.6 10^3/uL (1.5-8.5); NEUTROPHILS % 54.9 % (36.0-66.0); PLATELET COUNT, AUTOMATED 170 10^3/uL (150-450); RED BLOOD COUNT 3.37 10^6/uL (4.00-5.40); WHITE BLOOD COUNT 4.7 10^3/uL (4.0-10.0)
[2021-07-16 07:06] LABS: BLOOD UREA NITROGEN 4 MG/DL (7-18); CALCIUM LEVEL 7.9 MG/DL (8.8-10.2); CARBON DIOXIDE LEVEL 23 MEQ/L (21-32); CHLORIDE LEVEL 103 MEQ/L (98-107); CREATININE FOR GFR 0.64 MG/DL (0.55-1.30); GLOMERULAR FILTRATION RATE > 60.0 (>39); GLUCOSE, FASTING 116 MG/DL (70-100); POTASSIUM SERUM 4.8 MEQ/L (3.5-5.1); SODIUM LEVEL 136 MEQ/L (136-145)
[2021-07-16] MEDS ORDERED: LIDOCAINE 1% MDV 20ML VIAL SC ONE (08:05)
[2021-07-16 08:11] LABS: C REACTIVE PROTEIN QUANTITATIV 0.97 MG/DL (0.00-0.30)
[2021-07-16] MEDS: MAGNESIUM OXIDE 400MG TAB (MAG-OX) PO SCH (08:40)
[2021-07-16] MEDS: predniSONE 10 MG TAB PO SCH (08:40)
[2021-07-16] MEDS: MULTIVITAMINS/MINERALS THERAP 1 TAB PO SCH (08:40)
[2021-07-16] MEDS: TRIAMCINOLONE ACET 0.1% CREAM 80 GM TOP SCH ×2 (08:42→21:16)
[2021-07-16] MEDS: VANICREAM MOISTURIZING SKIN CREAM 113GM TUBE TOP SCH ×2 (08:42→21:16)
[2021-07-16] MEDS: NICOTINE 14 MG/24 HR TRANSDERMAL TOP SCH (08:43)
[2021-07-16 08:44] VITALS: BP_SYST 120; BP_SYST 122; BP_DIAS 57; BP_DIAS 63
[2021-07-16] MEDS: CLOTRIMAZOLE 1% TOPICAL CREAM 30GM TOP SCH ×2 (08:44→21:17)
[2021-07-16 08:50] VITALS: BP 119/63
[2021-07-16] MEDS: CHOLESTYRAMINE 4 GM PWD PKT PO SCH (13:36)
[2021-07-17] MEDS: traMADol 50 MG TAB PO PRN ×3 (02:08→13:12)
[2021-07-17 02:09] VITALS: BP_SYST 115; BP_SYST 75; BP_SYST 96; BP_DIAS 44; BP_DIAS 56; BP_DIAS 59
[2021-07-17] MEDS ORDERED: NS 1,000 ML IV SCH (02:30)
[2021-07-17] MEDS: HEPARIN SOD (PORCINE) 5000UNITS/ML 1ML VIAL/SYRINGE SC SCH ×3 (05:37→21:33)
[2021-07-17 06:00] VITALS: BP 129/63
[2021-07-17 06:46] LABS: BASO % 0.2 % (0.0-1.0); EOS % 0.4 % (0.0-3.0); HEMATOCRIT 28.1 % (36.0-47.0); HEMOGLOBIN 9.8 g/dl (12.0-15.5); LYMPH # 2.3 10^3/uL (1.5-5.0); LYMPH % 40.8 % (24.0-44.0); MEAN CORPUSCULAR HEMOGLOBIN 33.9 pg (27.0-33.0); MEAN CORPUSCULAR HGB CONC 34.9 g/dl (32.0-36.5); MEAN CORPUSCULAR VOLUME 97.2 fl (80.0-96.0); MONO # 0.5 10^3/uL (0.0-0.8); MONO % 8.7 % (2.0-8.0); NEUTROPHILS # 2.8 10^3/uL (1.5-8.5); NEUTROPHILS % 49.5 % (36.0-66.0); PLATELET COUNT, AUTOMATED 174 10^3/uL (150-450); RED BLOOD COUNT 2.89 10^6/uL (4.00-5.40); WHITE BLOOD COUNT 5.6 10^3/uL (4.0-10.0)
[2021-07-17 07:25] LABS: BLOOD UREA NITROGEN 5 MG/DL (7-18); CALCIUM LEVEL 7.7 MG/DL (8.8-10.2); CARBON DIOXIDE LEVEL 28 MEQ/L (21-32); CHLORIDE LEVEL 104 MEQ/L (98-107); CREATININE FOR GFR 0.47 MG/DL (0.55-1.30); GLOMERULAR FILTRATION RATE > 60.0 (>39); GLUCOSE, FASTING 67 MG/DL (70-100); MAGNESIUM LEVEL 1.9 MG/DL (1.8-2.4); NT-PRO BNP 1606 PG/ML (<450); POTASSIUM SERUM 3.8 MEQ/L (3.5-5.1); SODIUM LEVEL 135 MEQ/L (136-145)
[2021-07-17 07:40] VITALS: BP 126/62
[2021-07-17] MEDS: predniSONE 10 MG TAB PO SCH (07:48)
[2021-07-17] MEDS: ZINC SULFATE 220 MG CAP PO SCH (07:48)
[2021-07-17] MEDS: VITAMIN D (CHOLECALCIFEROL) 400 INTERNATIONAL UNITS TAB PO SCH (07:48)
[2021-07-17] MEDS: ASCORBIC ACID 250 MG TAB PO SCH (07:48)
[2021-07-17] MEDS: MAGNESIUM OXIDE 400MG TAB (MAG-OX) PO SCH (07:48)
[2021-07-17] MEDS: MULTIVITAMINS/MINERALS THERAP 1 TAB PO SCH (07:48)
[2021-07-17] MEDS: MIDODRINE 2.5 MG TAB PO SCH ×3 (07:48→17:32)
[2021-07-17] MEDS: NICOTINE 14 MG/24 HR TRANSDERMAL TOP SCH (07:49)
[2021-07-17] MEDS: TRIAMCINOLONE ACET 0.1% CREAM 80 GM TOP SCH ×2 (07:52→21:33)
[2021-07-17] MEDS: VANICREAM MOISTURIZING SKIN CREAM 113GM TUBE TOP SCH ×2 (07:52→21:34)
[2021-07-17] MEDS: CLOTRIMAZOLE 1% TOPICAL CREAM 30GM TOP SCH ×2 (07:53→21:35)
[2021-07-17 12:51] VITALS: BP_SYST 112; BP_SYST 121; BP_SYST 125; BP_DIAS 59; BP_DIAS 62
[2021-07-17] MEDS: CHOLESTYRAMINE 4 GM PWD PKT PO SCH (15:32)
[2021-07-17 17:32] VITALS: BP 129/58
[2021-07-18 01:30] VITALS: BP_SYST 103; BP_SYST 118; BP_SYST 123; BP_DIAS 50; BP_DIAS 56; BP_DIAS 57
[2021-07-18] MEDS: traMADol 50 MG TAB PO PRN ×4 (01:58→22:16)
[2021-07-18] MEDS: HEPARIN SOD (PORCINE) 5000UNITS/ML 1ML VIAL/SYRINGE SC SCH ×3 (05:34→22:15)
[2021-07-18 06:00] VITALS: BP 128/61
[2021-07-18 06:42] LABS: BASO % 0.2 % (0.0-1.0); EOS # 0.1 10^3/uL (0.0-0.5); EOS % 0.8 % (0.0-3.0); HEMATOCRIT 30.8 % (36.0-47.0); HEMOGLOBIN 10.3 g/dl (12.0-15.5); LYMPH # 2.6 10^3/uL (1.5-5.0); MEAN CORPUSCULAR HEMOGLOBIN 33.3 pg (27.0-33.0); MEAN CORPUSCULAR HGB CONC 33.4 g/dl (32.0-36.5); MEAN CORPUSCULAR VOLUME 99.7 fl (80.0-96.0); MONO # 0.5 10^3/uL (0.0-0.8); MONO % 8.3 % (2.0-8.0); NEUTROPHILS # 3.1 10^3/uL (1.5-8.5); NEUTROPHILS % 49.4 % (36.0-66.0); PLATELET COUNT, AUTOMATED 185 10^3/uL (150-450); RED BLOOD COUNT 3.09 10^6/uL (4.00-5.40); WHITE BLOOD COUNT 6.2 10^3/uL (4.0-10.0)
[2021-07-18 07:02] LABS: BLOOD UREA NITROGEN 4 MG/DL (7-18); CALCIUM LEVEL 8.6 MG/DL (8.8-10.2); CARBON DIOXIDE LEVEL 28 MEQ/L (21-32); CHLORIDE LEVEL 108 MEQ/L (98-107); CREATININE FOR GFR 0.57 MG/DL (0.55-1.30); GLOMERULAR FILTRATION RATE > 60.0 (>39); GLUCOSE, FASTING 63 MG/DL (70-100); MAGNESIUM LEVEL 2.1 MG/DL (1.8-2.4); POTASSIUM SERUM 3.6 MEQ/L (3.5-5.1); SODIUM LEVEL 141 MEQ/L (136-145)
[2021-07-18] MEDS: predniSONE 10 MG TAB PO SCH (08:50)
[2021-07-18] MEDS: MIDODRINE 2.5 MG TAB PO SCH ×3 (08:50→16:44)
[2021-07-18] MEDS: ASCORBIC ACID 250 MG TAB PO SCH (08:51)
[2021-07-18] MEDS: MULTIVITAMINS/MINERALS THERAP 1 TAB PO SCH (08:51)
[2021-07-18] MEDS: ZINC SULFATE 220 MG CAP PO SCH (08:51)
[2021-07-18] MEDS: MAGNESIUM OXIDE 400MG TAB (MAG-OX) PO SCH (08:51)
[2021-07-18] MEDS: VITAMIN D (CHOLECALCIFEROL) 400 INTERNATIONAL UNITS TAB PO SCH (08:51)
[2021-07-18] MEDS: CLOTRIMAZOLE 1% TOPICAL CREAM 30GM TOP SCH ×2 (08:52→22:14)
[2021-07-18] MEDS: TRIAMCINOLONE ACET 0.1% CREAM 80 GM TOP SCH ×2 (08:52→22:14)
[2021-07-18] MEDS: VANICREAM MOISTURIZING SKIN CREAM 113GM TUBE TOP SCH ×2 (08:52→22:15)
[2021-07-18] MEDS: NICOTINE 14 MG/24 HR TRANSDERMAL TOP SCH (09:13)
[2021-07-18] MEDS: CHOLESTYRAMINE 4 GM PWD PKT PO SCH (14:08)
[2021-07-19] MEDS: traMADol 50 MG TAB PO PRN (04:26)
[2021-07-19 05:40] VITALS: BP 114/56
[2021-07-19] MEDS: HEPARIN SOD (PORCINE) 5000UNITS/ML 1ML VIAL/SYRINGE SC SCH (05:47)
[2021-07-19 06:43] LABS: BASO % 0.2 % (0.0-1.0); EOS % 0.6 % (0.0-3.0); HEMATOCRIT 30.8 % (36.0-47.0); HEMOGLOBIN 10.5 g/dl (12.0-15.5); LYMPH # 3.1 10^3/uL (1.5-5.0); LYMPH % 50.6 % (24.0-44.0); MEAN CORPUSCULAR HEMOGLOBIN 33.3 pg (27.0-33.0); MEAN CORPUSCULAR HGB CONC 34.1 g/dl (32.0-36.5); MEAN CORPUSCULAR VOLUME 97.8 fl (80.0-96.0); MONO # 0.6 10^3/uL (0.0-0.8); MONO % 9.7 % (2.0-8.0); NEUTROPHILS # 2.4 10^3/uL (1.5-8.5); NEUTROPHILS % 38.9 % (36.0-66.0); PLATELET COUNT, AUTOMATED 185 10^3/uL (150-450); RED BLOOD COUNT 3.15 10^6/uL (4.00-5.40); WHITE BLOOD COUNT 6.2 10^3/uL (4.0-10.0)
[2021-07-19 07:01] LABS: BLOOD UREA NITROGEN 3 MG/DL (7-18); CALCIUM LEVEL 8.1 MG/DL (8.8-10.2); CARBON DIOXIDE LEVEL 30 MEQ/L (21-32); CHLORIDE LEVEL 104 MEQ/L (98-107); GLOMERULAR FILTRATION RATE > 60.0 (>39); GLUCOSE, FASTING 68 MG/DL (70-100); POTASSIUM SERUM 3.1 MEQ/L (3.5-5.1); SODIUM LEVEL 138 MEQ/L (136-145)
[2021-07-19] MEDS: ZINC SULFATE 220 MG CAP PO SCH (08:17)
[2021-07-19] MEDS: predniSONE 10 MG TAB PO SCH (08:17)
[2021-07-19] MEDS: MULTIVITAMINS/MINERALS THERAP 1 TAB PO SCH (08:17)
[2021-07-19] MEDS: NICOTINE 14 MG/24 HR TRANSDERMAL TOP SCH (08:17)
[2021-07-19] MEDS: VITAMIN D (CHOLECALCIFEROL) 400 INTERNATIONAL UNITS TAB PO SCH (08:17)
[2021-07-19] MEDS: MIDODRINE 2.5 MG TAB PO SCH ×2 (08:17→12:34)
[2021-07-19] MEDS: ASCORBIC ACID 250 MG TAB PO SCH (08:18)
[2021-07-19] MEDS: MAGNESIUM OXIDE 400MG TAB (MAG-OX) PO SCH (08:18)
[2021-07-19] MEDS: TRIAMCINOLONE ACET 0.1% CREAM 80 GM TOP SCH (08:18)
[2021-07-19] MEDS: ACETAMINOPHEN 325 MG TAB PO PRN (08:18)
[2021-07-19] MEDS: VANICREAM MOISTURIZING SKIN CREAM 113GM TUBE TOP SCH (08:19)
[2021-07-19] MEDS: CLOTRIMAZOLE 1% TOPICAL CREAM 30GM TOP SCH (08:19)
[2021-07-19 08:20] VITALS: BP 119/55
[2021-07-19] MEDS ORDERED: CLOTR1CR TOP (10:51)
[2021-07-19] MEDS ORDERED: PRED10TA2 PO (10:51)
[2021-07-19] MEDS ORDERED: TRIA1CR80 TOP (10:51)
[2021-07-19] MEDS ORDERED: ZINC220CA PO (10:51)
[2021-07-19] MEDS ORDERED: MIDO2.5T PO (10:51)
[2021-07-19] MEDS ORDERED: MAGN400T2 PO (10:51)
[2021-07-19] MEDS ORDERED: TRAM50TA2 PO (10:52)
== END 2021-07-19 13:05 | DRG 948 ==
LOC: EDBD 13:40 → M ED 13:40 → M ED INP 13:41 → OBSVTOIN 07-02 10:09 → ENRESERV 07-02 10:51 → M MSPAV 07-02 11:19
PROVIDERS: ADMIT Internal Medicine; ATTEND Family Medicine
PROC: 0XB Anatomical Regions, Upper Extremities, Excision (ICD-10-PCS; principal; 2021-07-18)
DX: R53.1 Weakness (principal); E87.0 Hyperosmolality and hypernatremia; E46 Unspecified protein-calorie malnutrition; B49 Unspecified mycosis; E78.5 Hyperlipidemia, unspecified; Z85.42 Personal history of malignant neoplasm of other parts of uterus; Z85.038 Personal history of other malignant neoplasm of large intestine; Z85.3 Personal history of malignant neoplasm of breast; Z90.79 Acquired absence of other genital organ(s); F17.200 Nicotine dependence, unspecified, uncomplicated; L30.9 Dermatitis, unspecified; K63.9 Disease of intestine, unspecified; K59.09 Other constipation; R74.01 Elevation of levels of liver transaminase levels; B37.2 Candidiasis of skin and nail; G89.29 Other chronic pain; Z79.899 Other long term (current) drug therapy; Z88.5 Allergy status to narcotic agent; Z88.8 Allergy status to other drugs, medicaments and biological substances; Z91.030 Bee allergy status; Z20.822 Contact with and (suspected) exposure to COVID-19; Z90.49 Acquired absence of other specified parts of digestive tract; E87.6 Hypokalemia; D53.9 Nutritional anemia, unspecified; E88.09 Other disorders of plasma-protein metabolism, not elsewhere classified; I95.1 Orthostatic hypotension

== ENCOUNTER 2021-08-31 14:04 | Inpatient (IN) | payer MEDICARE, MEDICAID ==
[~2021-08-31] VITALS: Ht 162.6 cm; Wt 41.1 kg
[~2021-08-31 14:04] MED LIST changes: +MAGN400T2 PO; +MIDO2.5T PO; +NICO14PA TOP; +PRED10TA2 PO; +TRIA1CR80 TOP; +ZINC220CA PO
[2021-08-31 16:20] LABS: BASO % 0.4 % (0.0-1.0); EOS % 0.1 % (0.0-3.0); HEMATOCRIT 35.1 % (36.0-47.0); HEMOGLOBIN 12.2 g/dl (12.0-15.5); LYMPH # 1.8 10^3/uL (1.5-5.0); LYMPH % 21.3 % (24.0-44.0); MEAN CORPUSCULAR HEMOGLOBIN 38.2 pg (27.0-33.0); MEAN CORPUSCULAR HGB CONC 34.8 g/dl (32.0-36.5); MONO # 0.5 10^3/uL (0.0-0.8); MONO % 5.8 % (2.0-8.0); NEUTROPHILS # 5.9 10^3/uL (1.5-8.5); NEUTROPHILS % 71.8 % (36.0-66.0); PLATELET COUNT, AUTOMATED 201 10^3/uL (150-450); RED BLOOD COUNT 3.19 10^6/uL (4.00-5.40); WHITE BLOOD COUNT 8.3 10^3/uL (4.0-10.0)
[2021-08-31 16:29] LABS: INR 1.11; PROTHROMBIN TIME 14.7 SECONDS (12.7-14.5)
[2021-08-31 16:47] LABS: CK-MB VALUE MASS < 1.0 NG/ML (<3.6); CPK CREATINE PHOSPHOKINASE 32 U/L (26-192); MB/CK RELATIVE INDEX 3.12 (< OR =4)
[2021-08-31 16:52] LABS: ALBUMIN 1.3 GM/DL (3.2-5.2); ALT/SGPT 27 U/L (12-78); BILIRUBIN,DIRECT 0.7 MG/DL (0.0-0.2); BILIRUBIN,TOTAL 1.2 MG/DL (0.2-1.0); BLOOD UREA NITROGEN 6 MG/DL (7-18); CARBON DIOXIDE LEVEL 25 MEQ/L (21-32); CHLORIDE LEVEL 100 MEQ/L (98-107); CREATININE FOR GFR 0.44 MG/DL (0.55-1.30); GLOMERULAR FILTRATION RATE > 60.0 (>39); GLUCOSE, FASTING 111 MG/DL (70-100); LIPASE 82 U/L (73-393); POTASSIUM SERUM 4.5 MEQ/L (3.5-5.1); SODIUM LEVEL 134 MEQ/L (136-145); TOTAL PROTEIN 5.2 GM/DL (6.4-8.2)
[2021-08-31] MEDS ORDERED: ISOVUE-370 76% 100ML VIAL As Ordered ONE (17:19)
[2021-08-31 18:28] LABS: CK-MB VALUE MASS < 1.0 NG/ML (<3.6); CPK CREATINE PHOSPHOKINASE 34 U/L (26-192); MB/CK RELATIVE INDEX 2.94 (< OR =4)
[2021-08-31 19:15] LABS: NT-PRO BNP 971 PG/ML (<450)
[2021-08-31] MEDS ORDERED: MAGN400T2 PO (19:29)
[2021-08-31] MEDS ORDERED: MIDO2.5T PO (19:29)
[2021-08-31] MEDS ORDERED: ACET-683 PO (19:29)
[2021-08-31] MEDS ORDERED: THIAMINE 100 MG TAB PO ONE (19:30)
[2021-08-31] MEDS ORDERED: NICOTINE 21MG/24HR 1 EA TRANSDERMAL TD ONE (19:30)
[2021-08-31] MEDS: FOLIC ACID 1 MG TAB PO SCH (19:41)
[2021-08-31] MEDS: ENOXAPARIN 60MG/0.6ML SYRINGE (J1650 PER 10MG) SC SCH (19:42)
[2021-08-31] MEDS: FUROSEMIDE 40MG/4ML VIAL (J1940) IV SCH ×2 (19:45→19:55)
[2021-08-31] MEDS ORDERED: TRIA1CR80 TOP (19:50)
[2021-08-31] MEDS ORDERED: HOME MED LIST COMPLETE! XX SCH (19:55)
[2021-08-31] MEDS ORDERED: METOCLOPRAMIDE INJ 10MG/2ML VIAL (J2765 PER 1) IV PRN (19:55)
[2021-08-31 22:18] VITALS: BP 137/58
[2021-09-01] VITALS: BP 132/63
[2021-09-01 04:00] VITALS: BP 108/55
[2021-09-01] MEDS: ACETAMINOPHEN TAB 650MG DOSE (2X325MG) PO PRN ×3 (05:40→20:37)
[2021-09-01 06:18] LABS: BASO % 0.3 % (0.0-1.0); EOS % 0.4 % (0.0-3.0); HEMATOCRIT 31.2 % (36.0-47.0); HEMOGLOBIN 10.4 g/dl (12.0-15.5); LYMPH # 2.3 10^3/uL (1.5-5.0); LYMPH % 34.6 % (24.0-44.0); MEAN CORPUSCULAR HEMOGLOBIN 37.7 pg (27.0-33.0); MEAN CORPUSCULAR HGB CONC 33.3 g/dl (32.0-36.5); MONO # 0.6 10^3/uL (0.0-0.8); MONO % 8.5 % (2.0-8.0); NEUTROPHILS # 3.7 10^3/uL (1.5-8.5); NEUTROPHILS % 55.9 % (36.0-66.0); PLATELET COUNT, AUTOMATED 192 10^3/uL (150-450); RED BLOOD COUNT 2.76 10^6/uL (4.00-5.40); WHITE BLOOD COUNT 6.7 10^3/uL (4.0-10.0)
[2021-09-01 06:49] LABS: ALBUMIN 1.2 GM/DL (3.2-5.2); ALT/SGPT 26 U/L (12-78); BLOOD UREA NITROGEN 6 MG/DL (7-18); CALCIUM LEVEL 7.7 MG/DL (8.8-10.2); CARBON DIOXIDE LEVEL 27 MEQ/L (21-32); CHLORIDE LEVEL 100 MEQ/L (98-107); CREATININE FOR GFR 0.46 MG/DL (0.55-1.30); GLOMERULAR FILTRATION RATE > 60.0 (>39); GLUCOSE, FASTING 109 MG/DL (70-100); POTASSIUM SERUM 3.2 MEQ/L (3.5-5.1); SODIUM LEVEL 134 MEQ/L (136-145); TOTAL PROTEIN 4.9 GM/DL (6.4-8.2)
[2021-09-01 08:00] VITALS: BP 103/56
[2021-09-01] MEDS: NYSTATIN 100,000 UNITS/GM TOPICAL PWD 15 GM TOP SCH ×2 (09:00→20:36)
[2021-09-01] MEDS ORDERED: MULTIVITAMINS/MINERALS THERAP 1 TAB PO SCH (09:00)
[2021-09-01] MEDS: ENOXAPARIN 60MG/0.6ML SYRINGE (J1650 PER 10MG) SC SCH (10:18)
[2021-09-01] MEDS: MIDODRINE 2.5 MG TAB PO SCH ×3 (10:18→16:32)
[2021-09-01] MEDS: MULTIVITAMINS/MINERALS THERAP 1 TAB PO SCH (10:19)
[2021-09-01] MEDS: VITAMIN D 1,000 INTERNATIONAL UNITS TABLET PO SCH (10:19)
[2021-09-01] MEDS: FUROSEMIDE 40MG/4ML VIAL (J1940) IV SCH ×2 (10:19→20:35)
[2021-09-01 12:00] VITALS: BP 130/59
[2021-09-01] MEDS: TRIAMCINOLONE ACET 0.1% CREAM 15 GM TOP SCH ×2 (12:43→20:37)
[2021-09-01 16:00] VITALS: BP 111/56
[2021-09-01] MEDS: LOPERAMIDE 2 MG CAPLET PO PRN (16:32)
[2021-09-01] MEDS: FOLIC ACID 1 MG TAB PO SCH (20:36)
[2021-09-01] MEDS: APIXABAN 5 MG TAB (ELIQUIS) PO SCH (20:36)
[2021-09-01 20:46] VITALS: BP 117/54
[2021-09-01] MEDS: POTASSIUM CHLORIDE 10MEQ SR TABLET PO ONE ×2 (22:16→22:28)
[2021-09-01] MEDS ORDERED: POTASSIUM CHLORIDE 10% LIQ 20 MEQ/15 ML UDC PO ONE (22:30)
[2021-09-02 00:06] VITALS: BP 106/54
[2021-09-02] MEDS: LOPERAMIDE 2 MG CAPLET PO PRN (00:52)
[2021-09-02] MEDS ORDERED: METAMUCIL (PSYLLIUM) PACKET PO PRN (01:20)
[2021-09-02 01:56] LABS: BLOOD UREA NITROGEN 6 MG/DL (7-18); CALCIUM LEVEL 7.6 MG/DL (8.8-10.2); CARBON DIOXIDE LEVEL 24 MEQ/L (21-32); CHLORIDE LEVEL 102 MEQ/L (98-107); CREATININE FOR GFR 0.52 MG/DL (0.55-1.30); GLOMERULAR FILTRATION RATE > 60.0 (>39); GLUCOSE, FASTING 78 MG/DL (70-100); POTASSIUM SERUM 3.7 MEQ/L (3.5-5.1); SODIUM LEVEL 133 MEQ/L (136-145)
[2021-09-02 04:09] VITALS: BP 120/55
[2021-09-02 05:36] LABS: BASO % 0.3 % (0.0-1.0); EOS # 0.1 10^3/uL (0.0-0.5); EOS % 0.9 % (0.0-3.0); HEMOGLOBIN 10.6 g/dl (12.0-15.5); LYMPH # 2.9 10^3/uL (1.5-5.0); LYMPH % 44.7 % (24.0-44.0); MEAN CORPUSCULAR HEMOGLOBIN 37.7 pg (27.0-33.0); MEAN CORPUSCULAR HGB CONC 34.2 g/dl (32.0-36.5); MEAN CORPUSCULAR VOLUME 110.3 fl (80.0-96.0); MONO # 0.5 10^3/uL (0.0-0.8); MONO % 7.7 % (2.0-8.0); NEUTROPHILS % 46.2 % (36.0-66.0); PLATELET COUNT, AUTOMATED 157 10^3/uL (150-450); RED BLOOD COUNT 2.81 10^6/uL (4.00-5.40); WHITE BLOOD COUNT 6.4 10^3/uL (4.0-10.0)
[2021-09-02 07:15] LABS: BLOOD UREA NITROGEN 7 MG/DL (7-18); CREATININE FOR GFR 0.44 MG/DL (0.55-1.30); GLOMERULAR FILTRATION RATE > 60.0 (>39); GLUCOSE, FASTING 92 MG/DL (70-100)
[2021-09-02 07:16] LABS: ALBUMIN 1.1 GM/DL (3.2-5.2); ALT/SGPT 24 U/L (12-78); CALCIUM LEVEL 6.8 MG/DL (8.8-10.2); CARBON DIOXIDE LEVEL 25 MEQ/L (21-32); CHLORIDE LEVEL 102 MEQ/L (98-107); MAGNESIUM LEVEL 1.5 MG/DL (1.8-2.4); POTASSIUM SERUM 3.5 MEQ/L (3.5-5.1); SODIUM LEVEL 135 MEQ/L (136-145); TOTAL PROTEIN 4.3 GM/DL (6.4-8.2)
[2021-09-02 07:44] VITALS: BP 117/57
[2021-09-02] MEDS: APIXABAN 5 MG TAB (ELIQUIS) PO SCH ×2 (10:01→20:41)
[2021-09-02] MEDS: MIDODRINE 2.5 MG TAB PO SCH ×3 (10:01→16:31)
[2021-09-02] MEDS: VITAMIN D 1,000 INTERNATIONAL UNITS TABLET PO SCH (10:02)
[2021-09-02] MEDS: FUROSEMIDE 40MG/4ML VIAL (J1940) IV SCH (10:02)
[2021-09-02] MEDS: MULTIVITAMINS/MINERALS THERAP 1 TAB PO SCH (10:02)
[2021-09-02] MEDS: TRIAMCINOLONE ACET 0.1% CREAM 15 GM TOP SCH ×2 (10:03→20:41)
[2021-09-02] MEDS: MAG SULF 1GM/100ML (MAG RUN) 1 GM in IV 1 EA IV SCH ×2 (10:03→11:21)
[2021-09-02] MEDS: NYSTATIN 100,000 UNITS/GM TOPICAL PWD 15 GM TOP SCH ×2 (10:03→20:41)
[2021-09-02 11:59] VITALS: BP 107/56
[2021-09-02 16:00] VITALS: BP 116/58
[2021-09-02] MEDS: FUROSEMIDE injection 250 MG in D5W 225 ML IV SCH (16:32)
[2021-09-02 20:00] VITALS: BP 112/53
[2021-09-02] MEDS: FOLIC ACID 1 MG TAB PO SCH (20:40)
[2021-09-02] MEDS: traMADol 50 MG TAB PO PRN (21:55)
[2021-09-03] VITALS (9 sets, daily range): BP systolic 84–124; BP diastolic 48–61
[2021-09-03] MEDS ORDERED: MIDODRINE 5 MG TAB PO ONE
[2021-09-03] MEDS: KETOROLAC 30 MG/ML 1ML VIAL IV PRN ×2 (06:51→22:08)
[2021-09-03 08:21] LABS: BASO % 0.3 % (0.0-1.0); EOS # 0.1 10^3/uL (0.0-0.5); EOS % 0.9 % (0.0-3.0); HEMATOCRIT 27.4 % (36.0-47.0); HEMOGLOBIN 9.6 g/dl (12.0-15.5); LYMPH # 2.7 10^3/uL (1.5-5.0); MEAN CORPUSCULAR HEMOGLOBIN 37.5 pg (27.0-33.0); MONO # 0.4 10^3/uL (0.0-0.8); MONO % 6.8 % (2.0-8.0); NEUTROPHILS # 3.2 10^3/uL (1.5-8.5); NEUTROPHILS % 49.7 % (36.0-66.0); PLATELET COUNT, AUTOMATED 189 10^3/uL (150-450); RED BLOOD COUNT 2.56 10^6/uL (4.00-5.40); WHITE BLOOD COUNT 6.5 10^3/uL (4.0-10.0)
[2021-09-03] MEDS: MULTIVITAMINS/MINERALS THERAP 1 TAB PO SCH (08:30)
[2021-09-03] MEDS: MIDODRINE 2.5 MG TAB PO SCH ×3 (08:30→15:37)
[2021-09-03] MEDS: TRIAMCINOLONE ACET 0.1% CREAM 15 GM TOP SCH ×2 (08:31→20:35)
[2021-09-03] MEDS: VITAMIN D 1,000 INTERNATIONAL UNITS TABLET PO SCH (08:31)
[2021-09-03] MEDS: APIXABAN 5 MG TAB (ELIQUIS) PO SCH ×2 (08:31→20:35)
[2021-09-03] MEDS: NYSTATIN 100,000 UNITS/GM TOPICAL PWD 15 GM TOP SCH ×2 (08:31→20:35)
[2021-09-03 08:45] LABS: ALBUMIN 1.1 GM/DL (3.2-5.2); ALT/SGPT 23 U/L (12-78); BILIRUBIN,TOTAL 0.6 MG/DL (0.2-1.0); BLOOD UREA NITROGEN 6 MG/DL (7-18); CALCIUM LEVEL 7.2 MG/DL (8.8-10.2); CARBON DIOXIDE LEVEL 32 MEQ/L (21-32); CHLORIDE LEVEL 96 MEQ/L (98-107); GLOMERULAR FILTRATION RATE > 60.0 (>39); GLUCOSE, FASTING 85 MG/DL (70-100); MAGNESIUM LEVEL 1.7 MG/DL (1.8-2.4); POTASSIUM SERUM 2.6 MEQ/L (3.5-5.1); SODIUM LEVEL 134 MEQ/L (136-145); TOTAL PROTEIN 4.6 GM/DL (6.4-8.2)
[2021-09-03] MEDS ORDERED: MAG SULF 1GM/100ML (MAG RUN) 1 GM in IV 1 EA IV ONE (09:30)
[2021-09-03] MEDS ORDERED: MAGNESIUM OXIDE 400MG TAB (MAG-OX) PO ONE (09:50)
[2021-09-03] MEDS: POTASSIUM CHLORIDE 10% LIQ 20 MEQ/15 ML UDC PO SCH ×2 (09:59→12:20)
[2021-09-03] MEDS: FUROSEMIDE injection 250 MG in D5W 225 ML IV SCH (14:22)
[2021-09-03] MEDS ORDERED: ISOVUE-370 76% 100ML VIAL As Ordered ONE (15:30)
[2021-09-03] MEDS: traMADol 50 MG TAB PO PRN (15:43)
[2021-09-03] MEDS ORDERED: POTASSIUM CHLORIDE 10% LIQ 20 MEQ/15 ML UDC PO ONE (16:00)
[2021-09-03] MEDS: FOLIC ACID 1 MG TAB PO SCH (20:35)
[2021-09-03] MEDS ORDERED: NAPROXEN 250 MG TAB PO PRN (21:30)
[2021-09-04] VITALS (9 sets, daily range): BP systolic 88–111; BP diastolic 40–56
[2021-09-04] MEDS ORDERED: MIDODRINE 5 MG TAB PO ONE (01:30)
[2021-09-04 05:43] LABS: BASO % 0.7 % (0.0-1.0); EOS # 0.1 10^3/uL (0.0-0.5); EOS % 1.7 % (0.0-3.0); HEMATOCRIT 25.1 % (36.0-47.0); HEMOGLOBIN 8.7 g/dl (12.0-15.5); LYMPH # 1.9 10^3/uL (1.5-5.0); LYMPH % 36.1 % (24.0-44.0); MEAN CORPUSCULAR HGB CONC 34.7 g/dl (32.0-36.5); MEAN CORPUSCULAR VOLUME 109.6 fl (80.0-96.0); MONO # 0.3 10^3/uL (0.0-0.8); MONO % 6.3 % (2.0-8.0); NEUTROPHILS # 2.9 10^3/uL (1.5-8.5); NEUTROPHILS % 54.8 % (36.0-66.0); PLATELET COUNT, AUTOMATED 186 10^3/uL (150-450); RED BLOOD COUNT 2.29 10^6/uL (4.00-5.40); WHITE BLOOD COUNT 5.4 10^3/uL (4.0-10.0)
[2021-09-04 06:12] LABS: ALBUMIN 1.1 GM/DL (3.2-5.2); ALT/SGPT 18 U/L (12-78); BILIRUBIN,TOTAL 0.4 MG/DL (0.2-1.0); BLOOD UREA NITROGEN 7 MG/DL (7-18); CALCIUM LEVEL 6.4 MG/DL (8.8-10.2); CARBON DIOXIDE LEVEL 33 MEQ/L (21-32); CHLORIDE LEVEL 94 MEQ/L (98-107); CREATININE FOR GFR 0.47 MG/DL (0.55-1.30); GLOMERULAR FILTRATION RATE > 60.0 (>39); GLUCOSE, FASTING 83 MG/DL (70-100); MAGNESIUM LEVEL 1.4 MG/DL (1.8-2.4); SODIUM LEVEL 132 MEQ/L (136-145); TOTAL PROTEIN 4.3 GM/DL (6.4-8.2)
[2021-09-04] MEDS: APIXABAN 5 MG TAB (ELIQUIS) PO SCH ×2 (08:13→20:25)
[2021-09-04] MEDS: POTASSIUM CHLORIDE 10MEQ SR TABLET PO SCH ×2 (08:13→20:25)
[2021-09-04] MEDS: MAGNESIUM OXIDE 400MG TAB (MAG-OX) PO SCH ×3 (08:13→20:25)
[2021-09-04] MEDS: NYSTATIN 100,000 UNITS/GM TOPICAL PWD 15 GM TOP SCH ×2 (08:13→20:24)
[2021-09-04] MEDS: MIDODRINE 2.5 MG TAB PO SCH ×3 (08:13→15:26)
[2021-09-04] MEDS: MULTIVITAMINS/MINERALS THERAP 1 TAB PO SCH (08:13)
[2021-09-04] MEDS: VITAMIN D 1,000 INTERNATIONAL UNITS TABLET PO SCH (08:13)
[2021-09-04] MEDS: TRIAMCINOLONE ACET 0.1% CREAM 15 GM TOP SCH ×2 (08:14→20:24)
[2021-09-04] MEDS ORDERED: MAG SULF 1GM/100ML (MAG RUN) 1 GM in IV 1 EA IV ONE (09:00)
[2021-09-04] MEDS ORDERED: POTASSIUM CHLORIDE 10MEQ SR TABLET PO ONE (12:00)
[2021-09-04] MEDS: KETOROLAC 30 MG/ML 1ML VIAL IV PRN (18:13)
[2021-09-04] MEDS: FOLIC ACID 1 MG TAB PO SCH (20:25)
[2021-09-05] VITALS (7 sets, daily range): BP systolic 92–132; BP diastolic 40–64
[2021-09-05] MEDS: traMADol 50 MG TAB PO PRN ×3 (00:40→20:29)
[2021-09-05] MEDS: KETOROLAC 30 MG/ML 1ML VIAL IV PRN ×2 (04:10→14:35)
[2021-09-05 07:29] LABS: BASO % 0.6 % (0.0-1.0); EOS # 0.1 10^3/uL (0.0-0.5); EOS % 0.9 % (0.0-3.0); HEMATOCRIT 26.6 % (36.0-47.0); HEMOGLOBIN 9.1 g/dl (12.0-15.5); LYMPH # 2.4 10^3/uL (1.5-5.0); LYMPH % 36.1 % (24.0-44.0); MEAN CORPUSCULAR HEMOGLOBIN 37.6 pg (27.0-33.0); MEAN CORPUSCULAR HGB CONC 34.2 g/dl (32.0-36.5); MEAN CORPUSCULAR VOLUME 109.9 fl (80.0-96.0); MONO # 0.4 10^3/uL (0.0-0.8); MONO % 5.9 % (2.0-8.0); NEUTROPHILS # 3.8 10^3/uL (1.5-8.5); NEUTROPHILS % 56.2 % (36.0-66.0); PLATELET COUNT, AUTOMATED 199 10^3/uL (150-450); RED BLOOD COUNT 2.42 10^6/uL (4.00-5.40); WHITE BLOOD COUNT 6.8 10^3/uL (4.0-10.0)
[2021-09-05 07:52] LABS: ALBUMIN 1.1 GM/DL (3.2-5.2); ALT/SGPT 22 U/L (12-78); BILIRUBIN,TOTAL 0.5 MG/DL (0.2-1.0); BLOOD UREA NITROGEN 7 MG/DL (7-18); CALCIUM LEVEL 7.2 MG/DL (8.8-10.2); CARBON DIOXIDE LEVEL 34 MEQ/L (21-32); CHLORIDE LEVEL 93 MEQ/L (98-107); CREATININE FOR GFR 0.48 MG/DL (0.55-1.30); GLOMERULAR FILTRATION RATE > 60.0 (>39); GLUCOSE, FASTING 81 MG/DL (70-100); MAGNESIUM LEVEL 2.1 MG/DL (1.8-2.4); POTASSIUM SERUM 3.5 MEQ/L (3.5-5.1); SODIUM LEVEL 133 MEQ/L (136-145); TOTAL PROTEIN 4.3 GM/DL (6.4-8.2)
[2021-09-05] MEDS: MULTIVITAMINS/MINERALS THERAP 1 TAB PO SCH (08:25)
[2021-09-05] MEDS: MAGNESIUM OXIDE 400MG TAB (MAG-OX) PO SCH ×3 (08:25→20:17)
[2021-09-05] MEDS: VITAMIN D 1,000 INTERNATIONAL UNITS TABLET PO SCH (08:25)
[2021-09-05] MEDS: APIXABAN 5 MG TAB (ELIQUIS) PO SCH ×2 (08:25→20:17)
[2021-09-05] MEDS: TRIAMCINOLONE ACET 0.1% CREAM 15 GM TOP SCH ×2 (08:26→20:17)
[2021-09-05] MEDS: NYSTATIN 100,000 UNITS/GM TOPICAL PWD 15 GM TOP SCH ×2 (08:26→20:18)
[2021-09-05] MEDS: POTASSIUM CHLORIDE 10MEQ SR TABLET PO SCH ×3 (08:26→20:17)
[2021-09-05] MEDS: MIDODRINE 2.5 MG TAB PO SCH (08:27)
[2021-09-05] MEDS: MIDODRINE 5 MG TAB PO SCH ×2 (12:29→17:20)
[2021-09-05] MEDS: FUROSEMIDE injection 250 MG in D5W 225 ML IV SCH (18:37)
[2021-09-05] MEDS: FOLIC ACID 1 MG TAB PO SCH (20:17)
[2021-09-06] VITALS (8 sets, daily range): BP systolic 88–122; BP diastolic 42–60
[2021-09-06] MEDS: KETOROLAC 30 MG/ML 1ML VIAL IV PRN (03:57)
[2021-09-06 05:07] LABS: BASO # 0.1 10^3/uL (0.0-0.2); BASO % 0.6 % (0.0-1.0); EOS # 0.1 10^3/uL (0.0-0.5); EOS % 0.6 % (0.0-3.0); HEMATOCRIT 27.3 % (36.0-47.0); HEMOGLOBIN 9.2 g/dl (12.0-15.5); LYMPH # 2.4 10^3/uL (1.5-5.0); LYMPH % 30.4 % (24.0-44.0); MEAN CORPUSCULAR HEMOGLOBIN 36.8 pg (27.0-33.0); MEAN CORPUSCULAR HGB CONC 33.7 g/dl (32.0-36.5); MEAN CORPUSCULAR VOLUME 109.2 fl (80.0-96.0); MONO # 0.5 10^3/uL (0.0-0.8); MONO % 6.9 % (2.0-8.0); NEUTROPHILS # 4.7 10^3/uL (1.5-8.5); PLATELET COUNT, AUTOMATED 201 10^3/uL (150-450); WHITE BLOOD COUNT 7.7 10^3/uL (4.0-10.0)
[2021-09-06 05:25] LABS: BLOOD UREA NITROGEN 8 MG/DL (7-18); CALCIUM LEVEL 7.3 MG/DL (8.8-10.2); CARBON DIOXIDE LEVEL 30 MEQ/L (21-32); CHLORIDE LEVEL 97 MEQ/L (98-107); CREATININE FOR GFR 0.48 MG/DL (0.55-1.30); GLOMERULAR FILTRATION RATE > 60.0 (>39); GLUCOSE, FASTING 85 MG/DL (70-100); MAGNESIUM LEVEL 1.8 MG/DL (1.8-2.4); POTASSIUM SERUM 3.8 MEQ/L (3.5-5.1); SODIUM LEVEL 135 MEQ/L (136-145)
[2021-09-06] MEDS: POTASSIUM CHLORIDE 10MEQ SR TABLET PO SCH ×3 (08:41→20:08)
[2021-09-06] MEDS: MIDODRINE 5 MG TAB PO SCH ×3 (08:42→16:04)
[2021-09-06] MEDS: MAGNESIUM OXIDE 400MG TAB (MAG-OX) PO SCH ×3 (08:42→20:08)
[2021-09-06] MEDS: MULTIVITAMINS/MINERALS THERAP 1 TAB PO SCH (08:42)
[2021-09-06] MEDS: VITAMIN D 1,000 INTERNATIONAL UNITS TABLET PO SCH (08:42)
[2021-09-06] MEDS: APIXABAN 5 MG TAB (ELIQUIS) PO SCH ×2 (08:42→20:08)
[2021-09-06] MEDS: TRIAMCINOLONE ACET 0.1% CREAM 15 GM TOP SCH ×2 (08:43→20:09)
[2021-09-06] MEDS: NYSTATIN 100,000 UNITS/GM TOPICAL PWD 15 GM TOP SCH ×2 (08:43→20:09)
[2021-09-06] MEDS: traMADol 50 MG TAB PO PRN ×2 (11:36→19:08)
[2021-09-06] MEDS: FUROSEMIDE injection 250 MG in D5W 225 ML IV SCH (16:04)
[2021-09-06] MEDS ORDERED: METOCLOPRAMIDE INJ 10MG/2ML VIAL (J2765 PER 1) IV ONE (19:40)
[2021-09-06] MEDS: FOLIC ACID 1 MG TAB PO SCH (20:08)
[2021-09-07] VITALS (8 sets, daily range): BP systolic 88–110; BP diastolic 42–58
[2021-09-07] MEDS: KETOROLAC 30 MG/ML 1ML VIAL IV PRN (03:16)
[2021-09-07 05:41] LABS: BASO # 0.1 10^3/uL (0.0-0.2); BASO % 1.1 % (0.0-1.0); EOS # 0.1 10^3/uL (0.0-0.5); EOS % 1.1 % (0.0-3.0); HEMATOCRIT 26.3 % (36.0-47.0); LYMPH # 2.7 10^3/uL (1.5-5.0); LYMPH % 37.4 % (24.0-44.0); MEAN CORPUSCULAR HEMOGLOBIN 36.9 pg (27.0-33.0); MEAN CORPUSCULAR HGB CONC 34.2 g/dl (32.0-36.5); MEAN CORPUSCULAR VOLUME 107.8 fl (80.0-96.0); MONO # 0.6 10^3/uL (0.0-0.8); MONO % 8.8 % (2.0-8.0); NEUTROPHILS # 3.7 10^3/uL (1.5-8.5); NEUTROPHILS % 51.3 % (36.0-66.0); PLATELET COUNT, AUTOMATED 205 10^3/uL (150-450); RED BLOOD COUNT 2.44 10^6/uL (4.00-5.40); WHITE BLOOD COUNT 7.3 10^3/uL (4.0-10.0)
[2021-09-07 05:59] LABS: BLOOD UREA NITROGEN 9 MG/DL (7-18); CALCIUM LEVEL 7.5 MG/DL (8.8-10.2); CARBON DIOXIDE LEVEL 32 MEQ/L (21-32); CHLORIDE LEVEL 95 MEQ/L (98-107); CREATININE FOR GFR 0.58 MG/DL (0.55-1.30); GLOMERULAR FILTRATION RATE > 60.0 (>39); GLUCOSE, FASTING 75 MG/DL (70-100); MAGNESIUM LEVEL 2.2 MG/DL (1.8-2.4); POTASSIUM SERUM 4.1 MEQ/L (3.5-5.1); SODIUM LEVEL 133 MEQ/L (136-145)
[2021-09-07] MEDS: MIDODRINE 5 MG TAB PO SCH ×3 (06:47→16:08)
[2021-09-07] MEDS: NYSTATIN 100,000 UNITS/GM TOPICAL PWD 15 GM TOP SCH ×2 (08:24→21:14)
[2021-09-07] MEDS: TRIAMCINOLONE ACET 0.1% CREAM 15 GM TOP SCH ×2 (08:24→21:14)
[2021-09-07] MEDS: POTASSIUM CHLORIDE 10MEQ SR TABLET PO SCH ×3 (08:24→21:13)
[2021-09-07] MEDS: APIXABAN 5 MG TAB (ELIQUIS) PO SCH ×2 (08:25→21:13)
[2021-09-07] MEDS: MAGNESIUM OXIDE 400MG TAB (MAG-OX) PO SCH ×3 (08:25→21:13)
[2021-09-07] MEDS: MULTIVITAMINS/MINERALS THERAP 1 TAB PO SCH (08:25)
[2021-09-07] MEDS: VITAMIN D 1,000 INTERNATIONAL UNITS TABLET PO SCH (08:25)
[2021-09-07] MEDS: TORSEMIDE 20 MG TAB PO SCH ×2 (09:42→17:09)
[2021-09-07] MEDS: ONDANSETRON 4MG ORAL DISINTEGRATING TAB SL PRN (12:59)
[2021-09-07] MEDS: FOLIC ACID 1 MG TAB PO SCH (21:13)
[2021-09-08 04:00] VITALS: BP 111/55
[2021-09-08 05:15] VITALS: BP 110/55
[2021-09-08 06:58] LABS: BLOOD UREA NITROGEN 8 MG/DL (7-18); CALCIUM LEVEL 7.9 MG/DL (8.8-10.2); CARBON DIOXIDE LEVEL 32 MEQ/L (21-32); CHLORIDE LEVEL 94 MEQ/L (98-107); CREATININE FOR GFR 0.67 MG/DL (0.55-1.30); GLOMERULAR FILTRATION RATE > 60.0 (>39); GLUCOSE, FASTING 99 MG/DL (70-100); POTASSIUM SERUM 4.4 MEQ/L (3.5-5.1); SODIUM LEVEL 132 MEQ/L (136-145)
[2021-09-08 07:41] VITALS: BP 113/53
[2021-09-08] MEDS: ONDANSETRON 4MG ORAL DISINTEGRATING TAB SL PRN ×2 (08:30→14:30)
[2021-09-08] MEDS: MIDODRINE 5 MG TAB PO SCH (08:30)
[2021-09-08] MEDS: TORSEMIDE 20 MG TAB PO SCH ×2 (09:15→17:12)
[2021-09-08] MEDS: MULTIVITAMINS/MINERALS THERAP 1 TAB PO SCH (09:16)
[2021-09-08] MEDS: VITAMIN D 1,000 INTERNATIONAL UNITS TABLET PO SCH (09:16)
[2021-09-08] MEDS: POTASSIUM CHLORIDE 10MEQ SR TABLET PO SCH ×3 (09:16→20:18)
[2021-09-08] MEDS: APIXABAN 5 MG TAB (ELIQUIS) PO SCH ×2 (09:16→20:18)
[2021-09-08] MEDS: MAGNESIUM OXIDE 400MG TAB (MAG-OX) PO SCH ×3 (09:16→20:18)
[2021-09-08] MEDS: NYSTATIN 100,000 UNITS/GM TOPICAL PWD 15 GM TOP SCH ×2 (09:17→20:19)
[2021-09-08] MEDS: TRIAMCINOLONE ACET 0.1% CREAM 15 GM TOP SCH ×2 (09:17→20:19)
[2021-09-08] MEDS: ACETAMINOPHEN TAB 650MG DOSE (2X325MG) PO PRN (09:52)
[2021-09-08] MEDS: CLOPIDOGREL 75 MG TAB PO SCH (12:18)
[2021-09-08] MEDS: traMADol 50 MG TAB PO PRN ×2 (12:20→20:18)
[2021-09-08 16:00] VITALS: BP 110/50
[2021-09-08 20:00] VITALS: BP 108/57
[2021-09-08] MEDS: FOLIC ACID 1 MG TAB PO SCH (20:18)
[2021-09-09 04:00] VITALS: BP 98/42
[2021-09-09] MEDS ORDERED: MIDODRINE 5 MG TAB PO ONE (05:00)
[2021-09-09 06:04] LABS: BLOOD UREA NITROGEN 6 MG/DL (7-18); CALCIUM LEVEL 7.9 MG/DL (8.8-10.2); CARBON DIOXIDE LEVEL 29 MEQ/L (21-32); CHLORIDE LEVEL 96 MEQ/L (98-107); CREATININE FOR GFR 0.66 MG/DL (0.55-1.30); GLOMERULAR FILTRATION RATE > 60.0 (>39); GLUCOSE, FASTING 76 MG/DL (70-100); POTASSIUM SERUM 4.9 MEQ/L (3.5-5.1); SODIUM LEVEL 131 MEQ/L (136-145)
[2021-09-09 07:55] VITALS: BP 125/59
[2021-09-09] MEDS: APIXABAN 5 MG TAB (ELIQUIS) PO SCH ×2 (09:04→20:50)
[2021-09-09] MEDS: VITAMIN D 1,000 INTERNATIONAL UNITS TABLET PO SCH (09:04)
[2021-09-09] MEDS: MULTIVITAMINS/MINERALS THERAP 1 TAB PO SCH (09:04)
[2021-09-09] MEDS: POTASSIUM CHLORIDE 10MEQ SR TABLET PO SCH ×3 (09:05→20:51)
[2021-09-09] MEDS: NYSTATIN 100,000 UNITS/GM TOPICAL PWD 15 GM TOP SCH ×2 (09:05→20:54)
[2021-09-09] MEDS: TORSEMIDE 20 MG TAB PO SCH ×2 (09:05→16:41)
[2021-09-09] MEDS: MAGNESIUM OXIDE 400MG TAB (MAG-OX) PO SCH ×3 (09:05→20:50)
[2021-09-09] MEDS: CLOPIDOGREL 75 MG TAB PO SCH (09:05)
[2021-09-09] MEDS: TRIAMCINOLONE ACET 0.1% CREAM 15 GM TOP SCH ×2 (09:06→20:54)
[2021-09-09 11:05] VITALS: BP 102/53
[2021-09-09 14:00] VITALS: BP 105/56
[2021-09-09 16:00] VITALS: BP 106/54
[2021-09-09] MEDS: FOLIC ACID 1 MG TAB PO SCH (20:50)
[2021-09-09] MEDS: traMADol 50 MG TAB PO PRN (20:51)
[2021-09-09] MEDS: ACETAMINOPHEN TAB 650MG DOSE (2X325MG) PO PRN (20:52)
[2021-09-09 22:00] VITALS: BP 98/42
[2021-09-10] MEDS: traMADol 50 MG TAB PO PRN ×2 (04:49→21:03)
[2021-09-10 04:50] VITALS: BP 105/62
[2021-09-10 06:55] LABS: BLOOD UREA NITROGEN 6 MG/DL (7-18); CALCIUM LEVEL 7.5 MG/DL (8.8-10.2); CARBON DIOXIDE LEVEL 29 MEQ/L (21-32); CHLORIDE LEVEL 96 MEQ/L (98-107); CREATININE FOR GFR 0.61 MG/DL (0.55-1.30); GLOMERULAR FILTRATION RATE > 60.0 (>39); GLUCOSE, FASTING 68 MG/DL (70-100); POTASSIUM SERUM 4.7 MEQ/L (3.5-5.1); SODIUM LEVEL 132 MEQ/L (136-145)
[2021-09-10 07:25] VITALS: BP 107/59
[2021-09-10] MEDS: POTASSIUM CHLORIDE 10MEQ SR TABLET PO SCH ×2 (09:00→21:02)
[2021-09-10] MEDS: VITAMIN D 1,000 INTERNATIONAL UNITS TABLET PO SCH (09:45)
[2021-09-10] MEDS: MULTIVITAMINS/MINERALS THERAP 1 TAB PO SCH (09:46)
[2021-09-10] MEDS: CLOPIDOGREL 75 MG TAB PO SCH (09:47)
[2021-09-10] MEDS: TORSEMIDE 20 MG TAB PO SCH ×2 (09:50→17:27)
[2021-09-10] MEDS: MAGNESIUM OXIDE 400MG TAB (MAG-OX) PO SCH ×3 (09:51→21:01)
[2021-09-10] MEDS: APIXABAN 5 MG TAB (ELIQUIS) PO SCH ×2 (09:52→21:01)
[2021-09-10] MEDS: TRIAMCINOLONE ACET 0.1% CREAM 15 GM TOP SCH ×2 (10:16→21:03)
[2021-09-10] MEDS: NYSTATIN 100,000 UNITS/GM TOPICAL PWD 15 GM TOP SCH ×2 (10:16→21:03)
[2021-09-10 14:00] VITALS: BP 107/49
[2021-09-10 17:28] VITALS: BP 104/52
[2021-09-10] MEDS: FOLIC ACID 1 MG TAB PO SCH (21:01)
[2021-09-10 22:00] VITALS: BP 107/80
[2021-09-11 06:00] VITALS: BP 104/51
[2021-09-11 07:17] LABS: BLOOD UREA NITROGEN 6 MG/DL (7-18); CALCIUM LEVEL 7.4 MG/DL (8.8-10.2); CARBON DIOXIDE LEVEL 31 MEQ/L (21-32); CHLORIDE LEVEL 94 MEQ/L (98-107); CREATININE FOR GFR 0.71 MG/DL (0.55-1.30); GLOMERULAR FILTRATION RATE > 60.0 (>39); GLUCOSE, FASTING 117 MG/DL (70-100); POTASSIUM SERUM 3.3 MEQ/L (3.5-5.1); SODIUM LEVEL 130 MEQ/L (136-145)
[2021-09-11] MEDS: VITAMIN D 1,000 INTERNATIONAL UNITS TABLET PO SCH (08:28)
[2021-09-11] MEDS: POTASSIUM CHLORIDE 10MEQ SR TABLET PO SCH ×2 (08:28→20:32)
[2021-09-11] MEDS: APIXABAN 5 MG TAB (ELIQUIS) PO SCH ×2 (08:29→20:33)
[2021-09-11] MEDS: MAGNESIUM OXIDE 400MG TAB (MAG-OX) PO SCH ×3 (08:29→20:32)
[2021-09-11] MEDS: MULTIVITAMINS/MINERALS THERAP 1 TAB PO SCH (08:29)
[2021-09-11] MEDS: traMADol 50 MG TAB PO PRN ×2 (08:31→20:33)
[2021-09-11] MEDS: CLOPIDOGREL 75 MG TAB PO SCH (08:31)
[2021-09-11] MEDS: TORSEMIDE 20 MG TAB PO SCH ×2 (08:31→18:27)
[2021-09-11] MEDS: TRIAMCINOLONE ACET 0.1% CREAM 15 GM TOP SCH ×2 (08:32→20:34)
[2021-09-11] MEDS: NYSTATIN 100,000 UNITS/GM TOPICAL PWD 15 GM TOP SCH ×2 (08:32→20:34)
[2021-09-11] MEDS: ACETAMINOPHEN TAB 650MG DOSE (2X325MG) PO PRN (10:19)
[2021-09-11 14:00] VITALS: BP 98/50
[2021-09-11] MEDS ORDERED: MIRALAX *UNIT DOSE* 17GM PACKET PO PRN (19:15)
[2021-09-11] MEDS: FOLIC ACID 1 MG TAB PO SCH (20:32)
[2021-09-11 21:50] VITALS: BP 113/53
[2021-09-12 06:00] VITALS: BP 101/50
[2021-09-12] MEDS: traMADol 50 MG TAB PO PRN (06:30)
[2021-09-12 06:56] LABS: BLOOD UREA NITROGEN 6 MG/DL (7-18); CALCIUM LEVEL 7.4 MG/DL (8.8-10.2); CARBON DIOXIDE LEVEL 27 MEQ/L (21-32); CHLORIDE LEVEL 98 MEQ/L (98-107); CREATININE FOR GFR 0.63 MG/DL (0.55-1.30); GLOMERULAR FILTRATION RATE > 60.0 (>39); GLUCOSE, FASTING 79 MG/DL (70-100); POTASSIUM SERUM 3.5 MEQ/L (3.5-5.1); SODIUM LEVEL 135 MEQ/L (136-145)
[2021-09-12] MEDS ORDERED: ELIQ5TAB PO (07:24)
[2021-09-12] MEDS ORDERED: TORS20TA2 PO (07:24)
[2021-09-12] MEDS ORDERED: MIRA1POW3 PO (07:24)
[2021-09-12] MEDS ORDERED: CLOP75TA2 PO (07:24)
[2021-09-12] MEDS ORDERED: FOLI1TAB11 PO (07:24)
[2021-09-12] MEDS ORDERED: POTA-136 PO (07:24)
[2021-09-12] MEDS: MULTIVITAMINS/MINERALS THERAP 1 TAB PO SCH ×2 (09:00→09:25)
[2021-09-12] MEDS: POTASSIUM CHLORIDE 10MEQ SR TABLET PO SCH (09:25)
[2021-09-12] MEDS: CLOPIDOGREL 75 MG TAB PO SCH (09:25)
[2021-09-12] MEDS: VITAMIN D 1,000 INTERNATIONAL UNITS TABLET PO SCH (09:26)
[2021-09-12] MEDS: APIXABAN 5 MG TAB (ELIQUIS) PO SCH (09:26)
[2021-09-12] MEDS: TORSEMIDE 20 MG TAB PO SCH (09:26)
[2021-09-12] MEDS: MAGNESIUM OXIDE 400MG TAB (MAG-OX) PO SCH (09:26)
[2021-09-12] MEDS: NYSTATIN 100,000 UNITS/GM TOPICAL PWD 15 GM TOP SCH (09:28)
[2021-09-12] MEDS: ACETAMINOPHEN TAB 650MG DOSE (2X325MG) PO PRN ×2 (09:28→10:22)
[2021-09-12] MEDS: TRIAMCINOLONE ACET 0.1% CREAM 15 GM TOP SCH (09:29)
== END 2021-09-12 12:45 | disposition home or self-care (01) | DRG 175 ==
LOC: M ED 14:04 → EDBD 14:04 → M ED INP 19:09 → ENRESERV 20:00 → M PCU 22:05 → M MS5PR 09-09 11:05
PROVIDERS: ADMIT Internal Medicine; ATTEND Internal Medicine Nephrology
DX: I26.94 Multiple subsegmental thrombotic pulmonary emboli without acute cor pulmonale (principal); E43 Unspecified severe protein-calorie malnutrition; J90 Pleural effusion, not elsewhere classified; I82.431 Acute embolism and thrombosis of right popliteal vein; R18.8 Other ascites; Z68.1 Body mass index [BMI] 19.9 or less, adult; I70.262 Atherosclerosis of native arteries of extremities with gangrene, left leg; L24.A0 Irritant contact dermatitis due to friction or contact with body fluids, unspecified; E78.5 Hyperlipidemia, unspecified; B37.3 Candidiasis of vulva and vagina; R53.1 Weakness; F10.10 Alcohol abuse, uncomplicated; R16.0 Hepatomegaly, not elsewhere classified; R29.6 Repeated falls; D53.9 Nutritional anemia, unspecified; R60.0 Localized edema; K76.0 Fatty (change of) liver, not elsewhere classified; I95.89 Other hypotension; J43.2 Centrilobular emphysema; N63.10 Unspecified lump in the right breast, unspecified quadrant; I27.20 Pulmonary hypertension, unspecified; I70.201 Unspecified atherosclerosis of native arteries of extremities, right leg; I77.1 Stricture of artery; R26.89 Other abnormalities of gait and mobility; E55.9 Vitamin D deficiency, unspecified; Z87.440 Personal history of urinary (tract) infections; Z87.891 Personal history of nicotine dependence; Z79.899 Other long term (current) drug therapy; Z88.5 Allergy status to narcotic agent; Z88.8 Allergy status to other drugs, medicaments and biological substances; Z91.030 Bee allergy status; Z85.038 Personal history of other malignant neoplasm of large intestine; Z85.41 Personal history of malignant neoplasm of cervix uteri; Z90.49 Acquired absence of other specified parts of digestive tract; Z85.3 Personal history of malignant neoplasm of breast; Z90.710 Acquired absence of both cervix and uterus

== ENCOUNTER 2021-09-13 19:26 | Inpatient (IN) | payer MEDICARE, MEDICAID ==
[~2021-09-13] VITALS: Ht 162.6 cm; Wt 51.4 kg
[~2021-09-13 19:26] MED LIST changes: +ACET-683 PO; +CLOP75TA2 PO; +ELIQ5TAB PO; +MIRA1POW3 PO; +POTA-136 PO; +TORS20TA2 PO
[2021-09-13 20:03] LABS: BASO % 0.2 % (0.0-1.0); EOS % 0.2 % (0.0-3.0); HEMATOCRIT 34.1 % (36.0-47.0); LYMPH # 2.4 10^3/uL (1.5-5.0); MEAN CORPUSCULAR HEMOGLOBIN 37.6 pg (27.0-33.0); MEAN CORPUSCULAR HGB CONC 35.2 g/dl (32.0-36.5); MEAN CORPUSCULAR VOLUME 106.9 fl (80.0-96.0); MONO # 0.4 10^3/uL (0.0-0.8); MONO % 4.4 % (2.0-8.0); NEUTROPHILS # 6.5 10^3/uL (1.5-8.5); PLATELET COUNT, AUTOMATED 323 10^3/uL (150-450); RED BLOOD COUNT 3.19 10^6/uL (4.00-5.40); WHITE BLOOD COUNT 9.4 10^3/uL (4.0-10.0)
[2021-09-13 20:32] LABS: CK-MB VALUE MASS 1.7 NG/ML (<3.6); MB/CK RELATIVE INDEX 4.25 (< OR =4)
[2021-09-13 20:37] LABS: ALBUMIN 1.5 GM/DL (3.2-5.2); ALT/SGPT 27 U/L (12-78); BILIRUBIN,DIRECT 0.4 MG/DL (0.0-0.2); BILIRUBIN,TOTAL 0.5 MG/DL (0.2-1.0); BLOOD UREA NITROGEN 4 MG/DL (7-18); CARBON DIOXIDE LEVEL 23 MEQ/L (21-32); CHLORIDE LEVEL 93 MEQ/L (98-107); CREATININE FOR GFR 0.58 MG/DL (0.55-1.30); GLOMERULAR FILTRATION RATE > 60.0 (>39); GLUCOSE, FASTING 97 MG/DL (70-100); POTASSIUM SERUM 3.3 MEQ/L (3.5-5.1); SODIUM LEVEL 131 MEQ/L (136-145); TOTAL PROTEIN 5.7 GM/DL (6.4-8.2)
[2021-09-13] MEDS ORDERED: cefTRIAXone SOD 2 GM in D5W MINI-BAG PLUS 50 ML IV ONE (21:20)
[2021-09-13] MEDS ORDERED: NS 1,000 ML IV SCH (21:30)
[2021-09-13] MEDS ORDERED: NS 500 ML IV ONE ×2 (21:30→22:50)
[2021-09-13 21:50] LABS: RSV AMPLIFICATION NEGATIVE (NEGATIVE)
[2021-09-14] MEDS ORDERED: ISOVUE-370 76% 100ML VIAL As Ordered ONE (00:15)
[2021-09-14] MEDS ORDERED: ONDANSETRON 4MG TAB PO PRN (00:15)
[2021-09-14] MEDS ORDERED: POTA10TA67 PO (00:25)
[2021-09-14] MEDS ORDERED: ELIQ5TAB PO (00:25)
[2021-09-14] MEDS ORDERED: CLOP75TA2 PO (00:25)
[2021-09-14] MEDS ORDERED: VITA100093 PO (00:25)
[2021-09-14] MEDS ORDERED: TORS20TA2 PO (00:25)
[2021-09-14] MEDS ORDERED: HOME MED LIST COMPLETE! XX SCH (00:30)
[2021-09-14] MEDS ORDERED: NS 1,000 ML IV SCH (00:30)
[2021-09-14] MEDS ORDERED: HYDROMORPHONE HCL 0.5 MG/ 0.5 ML SYRINGE (J1170 PER 1) IV PRN (01:15)
[2021-09-14 06:52] LABS: FREE T4 1.26 NG/DL (0.76-1.46)
[2021-09-14 11:38] LABS: BASO % 0.4 % (0.0-1.0); EOS % 0.3 % (0.0-3.0); HEMATOCRIT 28.4 % (36.0-47.0); LYMPH # 3.4 10^3/uL (1.5-5.0); LYMPH % 34.1 % (24.0-44.0); MEAN CORPUSCULAR HGB CONC 34.2 g/dl (32.0-36.5); MEAN CORPUSCULAR VOLUME 108.4 fl (80.0-96.0); MONO # 0.5 10^3/uL (0.0-0.8); MONO % 5.4 % (2.0-8.0); NEUTROPHILS # 5.9 10^3/uL (1.5-8.5); NEUTROPHILS % 59.5 % (36.0-66.0); PLATELET COUNT, AUTOMATED 307 10^3/uL (150-450); RED BLOOD COUNT 2.62 10^6/uL (4.00-5.40); WHITE BLOOD COUNT 9.9 10^3/uL (4.0-10.0)
[2021-09-14 11:47] LABS: HEMOGLOBIN 9.7 g/dl (12.0-15.5)
[2021-09-14 12:22] LABS: CK-MB VALUE MASS 1.2 NG/ML (<3.6); MB/CK RELATIVE INDEX 4.8 (< OR =4)
[2021-09-14 12:25] LABS: ALBUMIN 1.3 GM/DL (3.2-5.2); ALT/SGPT 21 U/L (12-78); BILIRUBIN,TOTAL 0.5 MG/DL (0.2-1.0); BLOOD UREA NITROGEN 7 MG/DL (7-18); CALCIUM LEVEL 7.3 MG/DL (8.8-10.2); CARBON DIOXIDE LEVEL 28 MEQ/L (21-32); CHLORIDE LEVEL 98 MEQ/L (98-107); CREATININE FOR GFR 0.78 MG/DL (0.55-1.30); GLOMERULAR FILTRATION RATE > 60.0 (>39); GLUCOSE, FASTING 113 MG/DL (70-100); MAGNESIUM LEVEL 2.4 MG/DL (1.8-2.4); POTASSIUM SERUM 3.9 MEQ/L (3.5-5.1); SODIUM LEVEL 133 MEQ/L (136-145); TOTAL PROTEIN 4.7 GM/DL (6.4-8.2)
[2021-09-14] MEDS ORDERED: MIDODRINE 5 MG TAB PO ONE (12:50)
[2021-09-14] MEDS ORDERED: NS 1,000 ML IV ONE (12:50)
[2021-09-14] MEDS: LACTOBACILLUS ACIDOPHILUS CAP (BACID) PO SCH ×3 (13:33→20:40)
[2021-09-14] MEDS: PHENAZOPYRIDINE 100 MG TAB PO SCH ×2 (14:00→20:40)
[2021-09-14] MEDS: MIDODRINE 5 MG TAB PO SCH (17:41)
[2021-09-14] MEDS ORDERED: KETOROLAC 30 MG/ML 1ML VIAL IV ONE ×2 (17:50→23:35)
[2021-09-14] MEDS ORDERED: traMADol 50 MG TAB PO ONE (17:50)
[2021-09-14] MEDS ORDERED: ACETAMINOPHEN 500 MG TAB PO ONE (17:50)
[2021-09-14] MEDS: LIDOCAINE 5% (LIDODERM) PATCH TD SCH (19:03)
[2021-09-14] MEDS: ANALGESIC BALM CRM 3OZ TOP SCH (20:40)
[2021-09-14] MEDS: **NOTE PATIENT COMMENT** MISC XX SCH (20:41)
[2021-09-14] MEDS ORDERED: cefTRIAXone SOD 1 GM in D5W MINI-BAG PLUS 50 ML IV SCH (21:00)
[2021-09-14 22:00] VITALS: BP 102/52
[2021-09-15 05:42] LABS: BASO % 0.5 % (0.0-1.0); EOS # 0.1 10^3/uL (0.0-0.5); EOS % 1.6 % (0.0-3.0); HEMATOCRIT 22.9 % (36.0-47.0); HEMOGLOBIN 7.9 g/dl (12.0-15.5); LYMPH # 2.7 10^3/uL (1.5-5.0); LYMPH % 43.3 % (24.0-44.0); MEAN CORPUSCULAR HEMOGLOBIN 36.9 pg (27.0-33.0); MEAN CORPUSCULAR HGB CONC 34.5 g/dl (32.0-36.5); MONO # 0.4 10^3/uL (0.0-0.8); MONO % 6.6 % (2.0-8.0); NEUTROPHILS # 2.9 10^3/uL (1.5-8.5); NEUTROPHILS % 47.7 % (36.0-66.0); PLATELET COUNT, AUTOMATED 260 10^3/uL (150-450); RED BLOOD COUNT 2.14 10^6/uL (4.00-5.40); WHITE BLOOD COUNT 6.2 10^3/uL (4.0-10.0)
[2021-09-15 06:00] VITALS: BP 99/51
[2021-09-15 06:22] LABS: ALBUMIN 1.1 GM/DL (3.2-5.2); ALT/SGPT 17 U/L (12-78); BILIRUBIN,TOTAL 0.7 MG/DL (0.2-1.0); BLOOD UREA NITROGEN 10 MG/DL (7-18); CARBON DIOXIDE LEVEL 31 MEQ/L (21-32); CHLORIDE LEVEL 98 MEQ/L (98-107); CREATININE FOR GFR 0.69 MG/DL (0.55-1.30); GLOMERULAR FILTRATION RATE > 60.0 (>39); GLUCOSE, FASTING 72 MG/DL (70-100); SODIUM LEVEL 133 MEQ/L (136-145); TOTAL PROTEIN 3.9 GM/DL (6.4-8.2)
[2021-09-15] MEDS: LACTOBACILLUS ACIDOPHILUS CAP (BACID) PO SCH ×4 (08:41→22:07)
[2021-09-15] MEDS: PHENAZOPYRIDINE 100 MG TAB PO SCH (08:41)
[2021-09-15] MEDS: MIDODRINE 5 MG TAB PO SCH ×3 (08:42→16:06)
[2021-09-15] MEDS: ANALGESIC BALM CRM 3OZ TOP SCH ×4 (08:42→22:09)
[2021-09-15] MEDS: LIDOCAINE 5% (LIDODERM) PATCH TD SCH (08:53)
[2021-09-15] MEDS ORDERED: POTASSIUM CHLORIDE 10MEQ SR TABLET PO ONE ×2 (10:15→11:15)
[2021-09-15] MEDS: ACETAMINOPHEN TAB 650MG DOSE (2X325MG) PO PRN (10:59)
[2021-09-15] MEDS: traMADol 50 MG TAB PO PRN ×2 (11:00→22:07)
[2021-09-15] MEDS ORDERED: LOPERAMIDE 2 MG CAPLET PO PRN (11:15)
[2021-09-15] MEDS: MULTIVITAMINS/MINERALS THERAP 1 TAB PO SCH (12:22)
[2021-09-15] MEDS: CLOPIDOGREL 75 MG TAB PO SCH (12:22)
[2021-09-15] MEDS: APIXABAN 5 MG TAB (ELIQUIS) PO SCH ×2 (12:22→22:07)
[2021-09-15] MEDS: MAGNESIUM OXIDE 400MG TAB (MAG-OX) PO SCH (12:22)
[2021-09-15] MEDS: VITAMIN D 1,000 INTERNATIONAL UNITS TABLET PO SCH (12:23)
[2021-09-15 14:00] VITALS: BP 116/52
[2021-09-15] MEDS ORDERED: ONDANSETRON 4MG 2ML VIAL IV ONE (14:45)
[2021-09-15] MEDS ORDERED: NS 1,000 ML IV ONE ×2 (14:45→16:00)
[2021-09-15] MEDS: NS 1,000 ML IV SCH ×2 (15:13→22:09)
[2021-09-15 15:30] VITALS: BP 116/52
[2021-09-15] MEDS: TRIAMCINOLONE ACET 0.1% CREAM 15 GM TOP SCH ×2 (15:33→22:08)
[2021-09-15] MEDS: NYSTATIN 100,000 UNITS/GM TOPICAL PWD 15 GM TOP SCH ×2 (15:33→22:08)
[2021-09-15 15:35] VITALS: BP 97/44
[2021-09-15 17:00] VITALS: BP 101/56
[2021-09-15] MEDS ORDERED: TORSEMIDE 20 MG TAB PO SCH (17:00)
[2021-09-15] MEDS ORDERED: AUGMENTIN 875 MG TAB PO SCH (21:00)
[2021-09-15] MEDS: **NOTE PATIENT COMMENT** MISC XX SCH (21:00)
[2021-09-15] MEDS: VANCOMYCIN ORAL SOL 250MG/5ML ORAL SYRINGE PO SCH (22:08)
[2021-09-15] MEDS: AMOXICILLIN 500 MG CAP PO SCH (22:08)
[2021-09-15] MEDS: POTASSIUM CHLORIDE 10MEQ SR TABLET PO SCH (22:08)
[2021-09-16 03:11] VITALS: BP 102/63
[2021-09-16] MEDS: AMOXICILLIN 500 MG CAP PO SCH ×3 (05:07→21:04)
[2021-09-16] MEDS: traMADol 50 MG TAB PO PRN ×3 (05:08→22:53)
[2021-09-16 07:28] LABS: BASO % 0.5 % (0.0-1.0); EOS # 0.1 10^3/uL (0.0-0.5); EOS % 1.1 % (0.0-3.0); HEMATOCRIT 24.5 % (36.0-47.0); LYMPH # 2.1 10^3/uL (1.5-5.0); MEAN CORPUSCULAR HEMOGLOBIN 35.7 pg (27.0-33.0); MEAN CORPUSCULAR HGB CONC 32.7 g/dl (32.0-36.5); MEAN CORPUSCULAR VOLUME 109.4 fl (80.0-96.0); MONO # 0.4 10^3/uL (0.0-0.8); MONO % 5.8 % (2.0-8.0); NEUTROPHILS # 3.7 10^3/uL (1.5-8.5); NEUTROPHILS % 59.4 % (36.0-66.0); PLATELET COUNT, AUTOMATED 254 10^3/uL (150-450); RED BLOOD COUNT 2.24 10^6/uL (4.00-5.40); WHITE BLOOD COUNT 6.3 10^3/uL (4.0-10.0)
[2021-09-16 07:56] LABS: ALBUMIN 1.1 GM/DL (3.2-5.2); ALT/SGPT 20 U/L (12-78); BILIRUBIN,TOTAL 0.6 MG/DL (0.2-1.0); BLOOD UREA NITROGEN 8 MG/DL (7-18); CALCIUM LEVEL 7.2 MG/DL (8.8-10.2); CARBON DIOXIDE LEVEL 27 MEQ/L (21-32); CHLORIDE LEVEL 99 MEQ/L (98-107); CREATININE FOR GFR 0.61 MG/DL (0.55-1.30); GLOMERULAR FILTRATION RATE > 60.0 (>39); GLUCOSE, FASTING 79 MG/DL (70-100); POTASSIUM SERUM 3.8 MEQ/L (3.5-5.1); SODIUM LEVEL 131 MEQ/L (136-145); TOTAL PROTEIN 4.1 GM/DL (6.4-8.2)
[2021-09-16] MEDS: VANCOMYCIN ORAL SOL 250MG/5ML ORAL SYRINGE PO SCH ×2 (09:57→21:04)
[2021-09-16] MEDS: LIDOCAINE 5% (LIDODERM) PATCH TD SCH (09:58)
[2021-09-16] MEDS: MIDODRINE 5 MG TAB PO SCH ×3 (09:59→16:00)
[2021-09-16] MEDS: APIXABAN 5 MG TAB (ELIQUIS) PO SCH ×2 (09:59→21:04)
[2021-09-16] MEDS: LACTOBACILLUS ACIDOPHILUS CAP (BACID) PO SCH ×4 (09:59→21:04)
[2021-09-16] MEDS: POTASSIUM CHLORIDE 10MEQ SR TABLET PO SCH ×2 (09:59→21:04)
[2021-09-16] MEDS: VITAMIN D 1,000 INTERNATIONAL UNITS TABLET PO SCH (09:59)
[2021-09-16] MEDS: MULTIVITAMINS/MINERALS THERAP 1 TAB PO SCH (09:59)
[2021-09-16] MEDS: ANALGESIC BALM CRM 3OZ TOP SCH ×4 (10:00→21:05)
[2021-09-16] MEDS: CLOPIDOGREL 75 MG TAB PO SCH (10:00)
[2021-09-16] MEDS: MAGNESIUM OXIDE 400MG TAB (MAG-OX) PO SCH (10:00)
[2021-09-16] MEDS: NYSTATIN 100,000 UNITS/GM TOPICAL PWD 15 GM TOP SCH ×2 (10:01→21:05)
[2021-09-16] MEDS: TRIAMCINOLONE ACET 0.1% CREAM 15 GM TOP SCH ×2 (10:01→21:05)
[2021-09-16] MEDS: **NOTE PATIENT COMMENT** MISC XX SCH (21:06)
[2021-09-16 21:38] VITALS: BP 101/42
[2021-09-17] MEDS: AMOXICILLIN 500 MG CAP PO SCH ×3 (05:40→20:58)
[2021-09-17 06:00] VITALS: BP 99/43
[2021-09-17 07:16] LABS: BASO % 0.8 % (0.0-1.0); EOS # 0.1 10^3/uL (0.0-0.5); EOS % 1.6 % (0.0-3.0); HEMATOCRIT 23.7 % (36.0-47.0); LYMPH # 2.5 10^3/uL (1.5-5.0); LYMPH % 47.9 % (24.0-44.0); MEAN CORPUSCULAR HEMOGLOBIN 36.4 pg (27.0-33.0); MEAN CORPUSCULAR HGB CONC 33.8 g/dl (32.0-36.5); MEAN CORPUSCULAR VOLUME 107.7 fl (80.0-96.0); MONO # 0.3 10^3/uL (0.0-0.8); MONO % 6.6 % (2.0-8.0); NEUTROPHILS # 2.2 10^3/uL (1.5-8.5); NEUTROPHILS % 42.9 % (36.0-66.0); PLATELET COUNT, AUTOMATED 275 10^3/uL (150-450); WHITE BLOOD COUNT 5.2 10^3/uL (4.0-10.0)
[2021-09-17 07:45] LABS: ALBUMIN 1.1 GM/DL (3.2-5.2); ALT/SGPT 18 U/L (12-78); BILIRUBIN,TOTAL 0.4 MG/DL (0.2-1.0); BLOOD UREA NITROGEN 4 MG/DL (7-18); CALCIUM LEVEL 7.7 MG/DL (8.8-10.2); CARBON DIOXIDE LEVEL 23 MEQ/L (21-32); CHLORIDE LEVEL 101 MEQ/L (98-107); CREATININE FOR GFR 0.48 MG/DL (0.55-1.30); GLOMERULAR FILTRATION RATE > 60.0 (>39); GLUCOSE, FASTING 63 MG/DL (70-100); SODIUM LEVEL 134 MEQ/L (136-145); TOTAL PROTEIN 4.3 GM/DL (6.4-8.2)
[2021-09-17] MEDS: VITAMIN D 1,000 INTERNATIONAL UNITS TABLET PO SCH (08:21)
[2021-09-17] MEDS: POTASSIUM CHLORIDE 10MEQ SR TABLET PO SCH ×2 (08:21→20:58)
[2021-09-17] MEDS: LACTOBACILLUS ACIDOPHILUS CAP (BACID) PO SCH ×4 (08:21→20:58)
[2021-09-17] MEDS: CLOPIDOGREL 75 MG TAB PO SCH (08:21)
[2021-09-17] MEDS: MAGNESIUM OXIDE 400MG TAB (MAG-OX) PO SCH (08:21)
[2021-09-17] MEDS: MULTIVITAMINS/MINERALS THERAP 1 TAB PO SCH (08:21)
[2021-09-17] MEDS: MIDODRINE 5 MG TAB PO SCH ×3 (08:21→16:00)
[2021-09-17] MEDS: ACETAMINOPHEN TAB 650MG DOSE (2X325MG) PO PRN (08:21)
[2021-09-17] MEDS: VANCOMYCIN ORAL SOL 250MG/5ML ORAL SYRINGE PO SCH ×2 (08:22→21:01)
[2021-09-17] MEDS: APIXABAN 5 MG TAB (ELIQUIS) PO SCH ×2 (08:22→21:01)
[2021-09-17] MEDS: LIDOCAINE 5% (LIDODERM) PATCH TD SCH (08:22)
[2021-09-17] MEDS: ANALGESIC BALM CRM 3OZ TOP SCH ×4 (08:23→21:00)
[2021-09-17] MEDS: NYSTATIN 100,000 UNITS/GM TOPICAL PWD 15 GM TOP SCH ×2 (08:24→21:00)
[2021-09-17] MEDS: TRIAMCINOLONE ACET 0.1% CREAM 15 GM TOP SCH ×2 (08:24→21:00)
[2021-09-17] MEDS: traMADol 50 MG TAB PO PRN ×2 (13:46→20:59)
[2021-09-17] MEDS: **NOTE PATIENT COMMENT** MISC XX SCH (21:01)
[2021-09-18] MEDS: traMADol 50 MG TAB PO PRN ×3 (03:05→20:56)
[2021-09-18 06:00] VITALS: BP 113/59
[2021-09-18 06:18] LABS: BASO # 0.1 10^3/uL (0.0-0.2); BASO % 0.7 % (0.0-1.0); EOS # 0.1 10^3/uL (0.0-0.5); EOS % 1.2 % (0.0-3.0); HEMOGLOBIN 8.4 g/dl (12.0-15.5); LYMPH # 2.3 10^3/uL (1.5-5.0); LYMPH % 34.3 % (24.0-44.0); MEAN CORPUSCULAR HEMOGLOBIN 35.9 pg (27.0-33.0); MEAN CORPUSCULAR HGB CONC 33.6 g/dl (32.0-36.5); MEAN CORPUSCULAR VOLUME 106.8 fl (80.0-96.0); MONO # 0.4 10^3/uL (0.0-0.8); MONO % 5.1 % (2.0-8.0); NEUTROPHILS % 58.6 % (36.0-66.0); PLATELET COUNT, AUTOMATED 269 10^3/uL (150-450); RED BLOOD COUNT 2.34 10^6/uL (4.00-5.40); WHITE BLOOD COUNT 6.8 10^3/uL (4.0-10.0)
[2021-09-18] MEDS: AMOXICILLIN 500 MG CAP PO SCH ×3 (06:31→20:55)
[2021-09-18 06:46] LABS: ALBUMIN 1.2 GM/DL (3.2-5.2); ALT/SGPT 18 U/L (12-78); BILIRUBIN,TOTAL 0.5 MG/DL (0.2-1.0); BLOOD UREA NITROGEN 4 MG/DL (7-18); CALCIUM LEVEL 7.7 MG/DL (8.8-10.2); CARBON DIOXIDE LEVEL 23 MEQ/L (21-32); CHLORIDE LEVEL 102 MEQ/L (98-107); CREATININE FOR GFR 0.45 MG/DL (0.55-1.30); GLOMERULAR FILTRATION RATE > 60.0 (>39); GLUCOSE, FASTING 71 MG/DL (70-100); POTASSIUM SERUM 4.4 MEQ/L (3.5-5.1); SODIUM LEVEL 133 MEQ/L (136-145); TOTAL PROTEIN 4.4 GM/DL (6.4-8.2)
[2021-09-18] MEDS: LIDOCAINE 5% (LIDODERM) PATCH TD SCH (09:00)
[2021-09-18] MEDS: VANCOMYCIN ORAL SOL 250MG/5ML ORAL SYRINGE PO SCH ×2 (09:28→20:56)
[2021-09-18] MEDS: MAGNESIUM OXIDE 400MG TAB (MAG-OX) PO SCH (09:28)
[2021-09-18] MEDS: VITAMIN D 1,000 INTERNATIONAL UNITS TABLET PO SCH (09:28)
[2021-09-18] MEDS: MULTIVITAMINS/MINERALS THERAP 1 TAB PO SCH (09:28)
[2021-09-18] MEDS: MIDODRINE 5 MG TAB PO SCH ×3 (09:29→16:29)
[2021-09-18] MEDS: LACTOBACILLUS ACIDOPHILUS CAP (BACID) PO SCH ×4 (09:29→20:55)
[2021-09-18] MEDS: CLOPIDOGREL 75 MG TAB PO SCH (09:29)
[2021-09-18] MEDS: APIXABAN 5 MG TAB (ELIQUIS) PO SCH ×2 (09:29→20:56)
[2021-09-18] MEDS: POTASSIUM CHLORIDE 10MEQ SR TABLET PO SCH ×2 (09:30→20:56)
[2021-09-18] MEDS: ANALGESIC BALM CRM 3OZ TOP SCH ×4 (09:32→20:57)
[2021-09-18] MEDS: NYSTATIN 100,000 UNITS/GM TOPICAL PWD 15 GM TOP SCH ×2 (09:32→20:57)
[2021-09-18] MEDS: TRIAMCINOLONE ACET 0.1% CREAM 15 GM TOP SCH ×2 (09:33→20:57)
[2021-09-18] MEDS: **NOTE PATIENT COMMENT** MISC XX SCH (20:57)
[2021-09-19] MEDS: traMADol 50 MG TAB PO PRN (03:59)
[2021-09-19] MEDS: AMOXICILLIN 500 MG CAP PO SCH ×3 (05:50→22:00)
[2021-09-19 06:00] VITALS: BP 103/47
[2021-09-19 06:35] LABS: BASO # 0.1 10^3/uL (0.0-0.2); BASO % 0.6 % (0.0-1.0); EOS # 0.1 10^3/uL (0.0-0.5); EOS % 1.1 % (0.0-3.0); HEMATOCRIT 24.2 % (36.0-47.0); LYMPH # 2.8 10^3/uL (1.5-5.0); LYMPH % 34.9 % (24.0-44.0); MEAN CORPUSCULAR HEMOGLOBIN 36.2 pg (27.0-33.0); MEAN CORPUSCULAR HGB CONC 33.1 g/dl (32.0-36.5); MEAN CORPUSCULAR VOLUME 109.5 fl (80.0-96.0); MONO # 0.4 10^3/uL (0.0-0.8); MONO % 5.2 % (2.0-8.0); NEUTROPHILS # 4.6 10^3/uL (1.5-8.5); NEUTROPHILS % 57.8 % (36.0-66.0); PLATELET COUNT, AUTOMATED 290 10^3/uL (150-450); RED BLOOD COUNT 2.21 10^6/uL (4.00-5.40)
[2021-09-19 07:05] LABS: ALBUMIN 1.2 GM/DL (3.2-5.2); ALT/SGPT 21 U/L (12-78); BILIRUBIN,TOTAL 0.5 MG/DL (0.2-1.0); BLOOD UREA NITROGEN 3 MG/DL (7-18); CALCIUM LEVEL 7.6 MG/DL (8.8-10.2); CARBON DIOXIDE LEVEL 25 MEQ/L (21-32); CHLORIDE LEVEL 103 MEQ/L (98-107); CREATININE FOR GFR 0.58 MG/DL (0.55-1.30); GLOMERULAR FILTRATION RATE > 60.0 (>39); GLUCOSE, FASTING 75 MG/DL (70-100); POTASSIUM SERUM 4.4 MEQ/L (3.5-5.1); SODIUM LEVEL 135 MEQ/L (136-145); TOTAL PROTEIN 4.4 GM/DL (6.4-8.2)
[2021-09-19] MEDS: MIDODRINE 5 MG TAB PO SCH ×3 (08:46→16:58)
[2021-09-19] MEDS: APIXABAN 5 MG TAB (ELIQUIS) PO SCH ×2 (08:46→21:00)
[2021-09-19] MEDS: POTASSIUM CHLORIDE 10MEQ SR TABLET PO SCH ×2 (08:46→21:00)
[2021-09-19] MEDS: MAGNESIUM OXIDE 400MG TAB (MAG-OX) PO SCH (08:46)
[2021-09-19] MEDS: CLOPIDOGREL 75 MG TAB PO SCH (08:46)
[2021-09-19] MEDS: LACTOBACILLUS ACIDOPHILUS CAP (BACID) PO SCH ×4 (08:46→21:00)
[2021-09-19] MEDS: MULTIVITAMINS/MINERALS THERAP 1 TAB PO SCH (08:46)
[2021-09-19] MEDS: VITAMIN D 1,000 INTERNATIONAL UNITS TABLET PO SCH (08:46)
[2021-09-19] MEDS: LIDOCAINE 5% (LIDODERM) PATCH TD SCH (08:47)
[2021-09-19] MEDS: ANALGESIC BALM CRM 3OZ TOP SCH ×4 (08:47→21:00)
[2021-09-19] MEDS: TRIAMCINOLONE ACET 0.1% CREAM 15 GM TOP SCH ×2 (08:48→21:00)
[2021-09-19] MEDS: NYSTATIN 100,000 UNITS/GM TOPICAL PWD 15 GM TOP SCH ×2 (08:48→21:00)
[2021-09-19] MEDS: VANCOMYCIN ORAL SOL 250MG/5ML ORAL SYRINGE PO SCH ×2 (08:52→21:00)
[2021-09-19 08:57] VITALS: BP 103/48
[2021-09-19] MEDS: **NOTE PATIENT COMMENT** MISC XX SCH (21:00)
[2021-09-19 21:46] VITALS: BP 99/57
[2021-09-20] VITALS: BP 97/56
[2021-09-20] MEDS: ONDANSETRON 4MG ORAL DISINTEGRATING TAB PO PRN ×2 (00:18→12:28)
[2021-09-20] MEDS: NS 1,000 ML IV SCH ×2 (01:08→10:27)
[2021-09-20 03:56] VITALS: BP 94/46
[2021-09-20] MEDS: AMOXICILLIN 500 MG CAP PO SCH ×2 (05:43→14:16)
[2021-09-20 06:01] LABS: BASO % 0.2 % (0.0-1.0); HEMATOCRIT 29.2 % (36.0-47.0); HEMOGLOBIN 9.6 g/dl (12.0-15.5); LYMPH # 1.4 10^3/uL (1.5-5.0); LYMPH % 8.6 % (24.0-44.0); MEAN CORPUSCULAR HEMOGLOBIN 35.7 pg (27.0-33.0); MEAN CORPUSCULAR HGB CONC 32.9 g/dl (32.0-36.5); MEAN CORPUSCULAR VOLUME 108.6 fl (80.0-96.0); MONO # 0.5 10^3/uL (0.0-0.8); MONO % 2.9 % (2.0-8.0); NEUTROPHILS # 14.4 10^3/uL (1.5-8.5); NEUTROPHILS % 87.9 % (36.0-66.0); PLATELET COUNT, AUTOMATED 310 10^3/uL (150-450); RED BLOOD COUNT 2.69 10^6/uL (4.00-5.40); WHITE BLOOD COUNT 16.3 10^3/uL (4.0-10.0)
[2021-09-20 06:32] LABS: ALBUMIN 1.1 GM/DL (3.2-5.2); BILIRUBIN,TOTAL 0.7 MG/DL (0.2-1.0); CALCIUM LEVEL 7.6 MG/DL (8.8-10.2); CREATININE FOR GFR 1.16 MG/DL (0.55-1.30); GLOMERULAR FILTRATION RATE 48.2 (>39); POTASSIUM SERUM 5.2 MEQ/L (3.5-5.1); TOTAL PROTEIN 4.1 GM/DL (6.4-8.2)
[2021-09-20] MEDS: LACTOBACILLUS ACIDOPHILUS CAP (BACID) PO SCH ×5 (08:00→22:17)
[2021-09-20] MEDS: MIDODRINE 5 MG TAB PO SCH ×4 (08:00→16:00)
[2021-09-20] MEDS: MAGNESIUM OXIDE 400MG TAB (MAG-OX) PO SCH ×2 (08:12→09:00)
[2021-09-20] MEDS: MULTIVITAMINS/MINERALS THERAP 1 TAB PO SCH (08:13)
[2021-09-20] MEDS: APIXABAN 5 MG TAB (ELIQUIS) PO SCH ×2 (08:13→09:00)
[2021-09-20] MEDS: VITAMIN D 1,000 INTERNATIONAL UNITS TABLET PO SCH ×2 (08:13→09:00)
[2021-09-20] MEDS: CLOPIDOGREL 75 MG TAB PO SCH ×2 (08:13→09:00)
[2021-09-20] MEDS: VANCOMYCIN ORAL SOL 250MG/5ML ORAL SYRINGE PO SCH ×3 (08:13→22:17)
[2021-09-20] MEDS: NYSTATIN 100,000 UNITS/GM TOPICAL PWD 15 GM TOP SCH ×2 (08:15→22:19)
[2021-09-20] MEDS: TRIAMCINOLONE ACET 0.1% CREAM 15 GM TOP SCH ×2 (08:15→22:18)
[2021-09-20] MEDS: LIDOCAINE 5% (LIDODERM) PATCH TD SCH (08:15)
[2021-09-20] MEDS: ANALGESIC BALM CRM 3OZ TOP SCH ×4 (08:15→22:18)
[2021-09-20] MEDS: POTASSIUM CHLORIDE 10MEQ SR TABLET PO SCH ×2 (09:00→22:17)
[2021-09-20 16:00] VITALS: BP 101/47
[2021-09-20] MEDS ORDERED: ISOVUE-370 76% 100ML VIAL As Ordered ONE (19:49)
[2021-09-20] MEDS ORDERED: PROCHLORPERAZINE 10MG 2ML VIAL IV PRN (21:20)
[2021-09-20] MEDS ORDERED: NS 1,000 ML IV SCH (21:20)
[2021-09-20 21:30] LABS: BLOOD UREA NITROGEN 8 MG/DL (7-18); CARBON DIOXIDE LEVEL 21 MEQ/L (21-32); CHLORIDE LEVEL 105 MEQ/L (98-107); GLOMERULAR FILTRATION RATE > 60.0 (>39); GLUCOSE, FASTING 100 MG/DL (70-100); POTASSIUM SERUM 5.2 MEQ/L (3.5-5.1); SODIUM LEVEL 132 MEQ/L (136-145)
[2021-09-20] MEDS ORDERED: NS 1,000 ML IV ONE (21:55)
[2021-09-20] MEDS: traMADol 50 MG TAB PO PRN (22:17)
[2021-09-20] MEDS: **NOTE PATIENT COMMENT** MISC XX SCH (22:27)
[2021-09-20] MEDS ORDERED: D5W/0.9% SODIUM CHLORIDE 1,000 ML IV SCH (23:00)
[2021-09-20 23:16] LABS: ETHYL ALCOHOL (ETHANOL) < 0.003 % (0.000-0.010)
[2021-09-21] VITALS (65 sets, daily range): BP systolic 84–176; BP diastolic 47–113
[2021-09-21] MEDS ORDERED: LORazepam 2 MG/ML VIAL IV PRN
[2021-09-21] MEDS: PIPERACILLIN/TAZOBACTAM SOD 3.375 GM in D5W MINI-BAG PLUS 50 ML IV SCH ×4 (00:42→18:06)
[2021-09-21 00:54] LABS: BASO % 0.2 % (0.0-1.0); EOS % 0.1 % (0.0-3.0); HEMATOCRIT 26.9 % (36.0-47.0); LYMPH # 1.7 10^3/uL (1.5-5.0); LYMPH % 13.4 % (24.0-44.0); MEAN CORPUSCULAR HEMOGLOBIN 36.4 pg (27.0-33.0); MEAN CORPUSCULAR HGB CONC 33.5 g/dl (32.0-36.5); MEAN CORPUSCULAR VOLUME 108.9 fl (80.0-96.0); MONO # 0.5 10^3/uL (0.0-0.8); MONO % 4.1 % (2.0-8.0); NEUTROPHILS # 10.2 10^3/uL (1.5-8.5); NEUTROPHILS % 81.9 % (36.0-66.0); PLATELET COUNT, AUTOMATED 311 10^3/uL (150-450); RED BLOOD COUNT 2.47 10^6/uL (4.00-5.40); WHITE BLOOD COUNT 12.5 10^3/uL (4.0-10.0)
[2021-09-21] MEDS ORDERED: MIDAZOLAM INJ 2MG/2ML VIAL (J2250 PER 1MG) As Ordered ONE (01:09)
[2021-09-21] MEDS ORDERED: ROCURONIUM BROMIDE 50 MG/5 ML VIAL As Ordered ONE (01:09)
[2021-09-21] MEDS ORDERED: propofoL 200 MG/20 ML VIAL As Ordered ONE (01:09)
[2021-09-21] MEDS ORDERED: fentaNYL 100 MCG/2 ML INJECTION As Ordered ONE ×2 (01:09→02:34)
[2021-09-21] MEDS ORDERED: ONDANSETRON 4MG 2ML VIAL As Ordered ONE (01:09)
[2021-09-21] MEDS ORDERED: LIDOCAINE 2% INJ 100 MG/5 ML SYRINGE As Ordered ONE (01:09)
[2021-09-21] MEDS ORDERED: dexameTHASONE 4 MG/ML 1ML VIAL (J1100 PER 1MG) As Ordered ONE (01:10)
[2021-09-21] MEDS ORDERED: ACETAMINOPHEN 1000MG 100ML IV BTL (OFIRMEV) (J0131 PER 10MG) As Ordered ONE (01:16)
[2021-09-21] MEDS ORDERED: PHENYLEPHRINE 10MG/ML 1ML VIAL (J2370 PER 1) As Ordered ONE (02:02)
[2021-09-21] MEDS ORDERED: ePHEDrine SULFATE 25 MG/5 ML(5MG/ML) SYRINGE As Ordered ONE (02:19)
[2021-09-21] MEDS ORDERED: PHENYLephrine 500MCG 5ML (100MCG/ML) SYRINGE As Ordered ONE ×2 (02:19→03:56)
[2021-09-21] MEDS ORDERED: SUGAMMADEX SODIUM 500 MG/5 ML VIAL (BRIDION) As Ordered ONE (02:20)
[2021-09-21] MEDS ORDERED: SUCCINYLCHOLINE 100 MG/5 ML SYRINGE (J0330) As Ordered ONE (02:44)
[2021-09-21] MEDS ORDERED: propofoL 1,000 MG in IV 1 EA IV SCH (04:45)
[2021-09-21] MEDS ORDERED: NOREPINEPHRINE/DEXTROSE 8 MG in IV 1 EA IV SCH (04:45)
[2021-09-21] MEDS ORDERED: NOREPINEPHRINE 8MG IN 500ML DEXTROSE 5% BAG As Ordered ONE (04:56)
[2021-09-21] MEDS ORDERED: PROPOFOL 1,000 MG/100 ML VIAL As Ordered ONE (04:57)
[2021-09-21] MEDS ORDERED: REFRIGERATOR IV KEYS XX PRN (05:25)
[2021-09-21] MEDS ORDERED: HYDROMORPHONE HCL 0.5 MG/ 0.5 ML SYRINGE (J1170 PER 1) IV PRN (05:40)
[2021-09-21 05:41] LABS: HEMATOCRIT 28.7 % (36.0-47.0); HEMOGLOBIN 9.5 g/dl (12.0-15.5); MEAN CORPUSCULAR HEMOGLOBIN 36.3 pg (27.0-33.0); MEAN CORPUSCULAR HGB CONC 33.1 g/dl (32.0-36.5); MEAN CORPUSCULAR VOLUME 109.5 fl (80.0-96.0); PLATELET COUNT, AUTOMATED 332 10^3/uL (150-450); RED BLOOD COUNT 2.62 10^6/uL (4.00-5.40)
[2021-09-21] MEDS ORDERED: MIDAZOLAM HCL 100 MG in D5W 80 ML IV SCH (06:00)
[2021-09-21 06:03] LABS: MAGNESIUM LEVEL 1.7 MG/DL (1.8-2.4); PHOSPHORUS LEVEL 3.5 MG/DL (2.5-4.9)
[2021-09-21 06:09] LABS: ABG BASE EXCESS -6.2 (-2.0-2.0); ABG HCO3 17.8 MEQ/L (22.0-26.0); ABG O2 SATURATION 99.3 % (95.0-99.0); ABG PARTIAL PRESSURE CO2 29.6 mmHg (35.0-45.0); ABG PARTIAL PRESSURE O2 151.7 mmHg (75.0-100.0); ABG STANDARD HCO3 19.4 MEQ/L (22.0-26.0); ABG TOTAL CO2 18.7 MEQ/L (23.0-31.0); ABG pH (ARTERIAL) 7.396 UNITS (7.350-7.450)
[2021-09-21 06:14] LABS: ALBUMIN 1.4 GM/DL (3.2-5.2); ALT/SGPT 17 U/L (12-78); BILIRUBIN,TOTAL 0.9 MG/DL (0.2-1.0); BLOOD UREA NITROGEN 7 MG/DL (7-18); CALCIUM LEVEL 7.1 MG/DL (8.8-10.2); CARBON DIOXIDE LEVEL 19 MEQ/L (21-32); CHLORIDE LEVEL 104 MEQ/L (98-107); CREATININE FOR GFR 0.88 MG/DL (0.55-1.30); GLOMERULAR FILTRATION RATE > 60.0 (>39); GLUCOSE, FASTING 124 MG/DL (70-100); POTASSIUM SERUM 5.3 MEQ/L (3.5-5.1); SODIUM LEVEL 131 MEQ/L (136-145); TOTAL PROTEIN 4.2 GM/DL (6.4-8.2)
[2021-09-21] MEDS ORDERED: NS 500 ML IV ONE (06:20)
[2021-09-21 06:21] LABS: LYMPHOCYTES 4 % (16-44); NEUTROPHILS 89 % (28-66)
[2021-09-21 06:23] LABS: CRENATED RBC 1+; PLATELET ESTIMATE NORMAL (NORMAL)
[2021-09-21 06:24] LABS: ANISOCYTOSIS 1+
[2021-09-21] MEDS ORDERED: MAG SULF 1GM/100ML (MAG RUN) 1 GM in IV 1 EA IV ONE (08:00)
[2021-09-21] MEDS: CHLORHEXIDINE GLUCONATE 0.12 % 15ML UDC (PERIDEX ORAL RINSE) MT SCH ×2 (08:33→21:00)
[2021-09-21] MEDS: PANTOPRAZOLE 40MG VIAL IV SCH (08:33)
[2021-09-21] MEDS: VANCOMYCIN ORAL SOL 250MG/5ML ORAL SYRINGE PO SCH ×2 (08:34→21:00)
[2021-09-21 08:58] LABS: ALBUMIN 1.2 GM/DL (3.2-5.2); ALT/SGPT 15 U/L (12-78); BILIRUBIN,TOTAL 0.7 MG/DL (0.2-1.0); BLOOD UREA NITROGEN 8 MG/DL (7-18); CALCIUM LEVEL 6.9 MG/DL (8.8-10.2); CARBON DIOXIDE LEVEL 20 MEQ/L (21-32); CHLORIDE LEVEL 104 MEQ/L (98-107); CREATININE FOR GFR 0.83 MG/DL (0.55-1.30); GLOMERULAR FILTRATION RATE > 60.0 (>39); GLUCOSE, FASTING 157 MG/DL (70-100); SODIUM LEVEL 131 MEQ/L (136-145); TOTAL PROTEIN 3.6 GM/DL (6.4-8.2)
[2021-09-21] MEDS ORDERED: LR 1,000 ML IV SCH (09:00)
[2021-09-21 09:06] LABS: MAGNESIUM LEVEL 1.8 MG/DL (1.8-2.4)
[2021-09-21 10:02] LABS: INR 2.29; PROTHROMBIN TIME 25.6 SECONDS (12.7-14.5)
[2021-09-21 10:03] LABS: PARTIAL THROMBOPLASTIN TIME 40.6 SECONDS (25.9-37.0)
[2021-09-21] MEDS ORDERED: LR 1,000 ML IV ONE (10:35)
[2021-09-21] MEDS ORDERED: fentaNYL CITRATE 1,000 MCG in NS 80 ML IV SCH (11:00)
[2021-09-22] VITALS (85 sets, daily range): BP systolic 89–136; BP diastolic 50–70
[2021-09-22] MEDS: PIPERACILLIN/TAZOBACTAM SOD 3.375 GM in D5W MINI-BAG PLUS 50 ML IV SCH ×4 (00:24→18:22)
[2021-09-22 05:21] LABS: ALBUMIN 2.2 GM/DL (3.2-5.2); ALT/SGPT 9 U/L (12-78); BILIRUBIN,TOTAL 0.9 MG/DL (0.2-1.0); BLOOD UREA NITROGEN 7 MG/DL (7-18); CALCIUM LEVEL 7.6 MG/DL (8.8-10.2); CARBON DIOXIDE LEVEL 23 MEQ/L (21-32); CHLORIDE LEVEL 107 MEQ/L (98-107); CREATININE FOR GFR 0.55 MG/DL (0.55-1.30); GLOMERULAR FILTRATION RATE > 60.0 (>39); GLUCOSE, FASTING 103 MG/DL (70-100); POTASSIUM SERUM 3.8 MEQ/L (3.5-5.1); SODIUM LEVEL 138 MEQ/L (136-145); TOTAL PROTEIN 3.9 GM/DL (6.4-8.2)
[2021-09-22 05:31] LABS: MEAN CORPUSCULAR HEMOGLOBIN 36.9 pg (27.0-33.0); MEAN CORPUSCULAR HGB CONC 34.3 g/dl (32.0-36.5); MEAN CORPUSCULAR VOLUME 107.5 fl (80.0-96.0)
[2021-09-22 05:43] LABS: HEMATOCRIT 17.2 % (36.0-47.0)
[2021-09-22 05:44] LABS: HEMOGLOBIN 5.9 g/dl (12.0-15.5); PLATELET COUNT, AUTOMATED 205 10^3/uL (150-450)
[2021-09-22 06:10] LABS: ALBUMIN 2.2 GM/DL (3.2-5.2); ALT/SGPT 11 U/L (12-78); BILIRUBIN,TOTAL 0.9 MG/DL (0.2-1.0); BLOOD UREA NITROGEN 8 MG/DL (7-18); CALCIUM LEVEL 7.5 MG/DL (8.8-10.2); CARBON DIOXIDE LEVEL 25 MEQ/L (21-32); CHLORIDE LEVEL 108 MEQ/L (98-107); CREATININE FOR GFR 0.55 MG/DL (0.55-1.30); GLOMERULAR FILTRATION RATE > 60.0 (>39); GLUCOSE, FASTING 97 MG/DL (70-100); POTASSIUM SERUM 3.9 MEQ/L (3.5-5.1); SODIUM LEVEL 139 MEQ/L (136-145); TOTAL PROTEIN 3.8 GM/DL (6.4-8.2)
[2021-09-22 06:27] LABS: ABG BASE EXCESS 0.6 (-2.0-2.0); ABG HCO3 24.7 MEQ/L (22.0-26.0); ABG O2 SATURATION 98.8 % (95.0-99.0); ABG PARTIAL PRESSURE CO2 36.3 mmHg (35.0-45.0); ABG PARTIAL PRESSURE O2 130.4 mmHg (75.0-100.0); ABG STANDARD HCO3 25.1 MEQ/L (22.0-26.0); ABG TOTAL CO2 25.8 MEQ/L (23.0-31.0)
[2021-09-22 07:15] LABS: LYMPHOCYTES 20 % (16-44); MONOCYTES 2 % (0-5); NEUTROPHILS 65 % (28-66)
[2021-09-22 07:16] LABS: PLATELET ESTIMATE NORMAL (NORMAL)
[2021-09-22 07:18] LABS: TARGET CELLS 1+
[2021-09-22] MEDS: PANTOPRAZOLE 40MG VIAL IV SCH (08:39)
[2021-09-22] MEDS: VANCOMYCIN ORAL SOL 250MG/5ML ORAL SYRINGE PO SCH ×2 (08:40→20:35)
[2021-09-22] MEDS: CHLORHEXIDINE GLUCONATE 0.12 % 15ML UDC (PERIDEX ORAL RINSE) MT SCH ×2 (08:40→20:35)
[2021-09-22 13:52] LABS: HEMATOCRIT 29.2 % (36.0-47.0); MEAN CORPUSCULAR HEMOGLOBIN 33.1 pg (27.0-33.0); MEAN CORPUSCULAR HGB CONC 34.2 g/dl (32.0-36.5); MEAN CORPUSCULAR VOLUME 96.7 fl (80.0-96.0); PLATELET COUNT, AUTOMATED 179 10^3/uL (150-450); RED BLOOD COUNT 3.02 10^6/uL (4.00-5.40); WHITE BLOOD COUNT 9.1 10^3/uL (4.0-10.0)
[2021-09-22] MEDS: fentaNYL 100 MCG/2 ML INJECTION IV PRN ×3 (14:11→22:29)
[2021-09-22] MEDS: MIDAZOLAM INJ 2MG/2ML VIAL (J2250 PER 1MG) IV PRN (18:29)
[2021-09-22] MEDS ORDERED: DEXTROSE 50% 50 ML SYRINGE IV PRN (21:50)
[2021-09-22] MEDS ORDERED: GLUCAGON INJ 1MG VIAL SC PRN (21:50)
[2021-09-22] MEDS ORDERED: GLUCOSE 4GM CHEW TABLET PO PRN (21:50)
[2021-09-23] VITALS (39 sets, daily range): BP systolic 106–147; BP diastolic 56–79
[2021-09-23] MEDS: PIPERACILLIN/TAZOBACTAM SOD 3.375 GM in D5W MINI-BAG PLUS 50 ML IV SCH ×4 (00:26→18:16)
[2021-09-23] MEDS: fentaNYL 100 MCG/2 ML INJECTION IV PRN ×4 (02:52→20:23)
[2021-09-23 05:38] LABS: ABG BASE EXCESS -1.1 (-2.0-2.0); ABG HCO3 22.2 MEQ/L (22.0-26.0); ABG O2 SATURATION 98.8 % (95.0-99.0); ABG PARTIAL PRESSURE CO2 31.8 mmHg (35.0-45.0); ABG PARTIAL PRESSURE O2 151.2 mmHg (75.0-100.0); ABG STANDARD HCO3 23.6 MEQ/L (22.0-26.0); ABG TOTAL CO2 23.1 MEQ/L (23.0-31.0); ABG pH (ARTERIAL) 7.461 UNITS (7.350-7.450); EOS % 0.4 % (0.0-3.0); HEMATOCRIT 26.3 % (36.0-47.0); HEMOGLOBIN 9.2 g/dl (12.0-15.5); LYMPH # 1.3 10^3/uL (1.5-5.0); LYMPH % 15.3 % (24.0-44.0); MEAN CORPUSCULAR HEMOGLOBIN 33.5 pg (27.0-33.0); MEAN CORPUSCULAR VOLUME 95.6 fl (80.0-96.0); MONO # 0.4 10^3/uL (0.0-0.8); MONO % 4.4 % (2.0-8.0); NEUTROPHILS # 6.6 10^3/uL (1.5-8.5); NEUTROPHILS % 79.5 % (36.0-66.0); PLATELET COUNT, AUTOMATED 157 10^3/uL (150-450); RED BLOOD COUNT 2.75 10^6/uL (4.00-5.40); WHITE BLOOD COUNT 8.3 10^3/uL (4.0-10.0)
[2021-09-23 06:09] LABS: ALBUMIN 3.3 GM/DL (3.2-5.2); ALT/SGPT 8 U/L (12-78); BILIRUBIN,TOTAL 3.2 MG/DL (0.2-1.0); BLOOD UREA NITROGEN 5 MG/DL (7-18); CALCIUM LEVEL 8.3 MG/DL (8.8-10.2); CARBON DIOXIDE LEVEL 23 MEQ/L (21-32); CHLORIDE LEVEL 108 MEQ/L (98-107); CREATININE FOR GFR 0.48 MG/DL (0.55-1.30); GLOMERULAR FILTRATION RATE > 60.0 (>39); GLUCOSE, FASTING 71 MG/DL (70-100); POTASSIUM SERUM 3.3 MEQ/L (3.5-5.1); SODIUM LEVEL 141 MEQ/L (136-145); TOTAL PROTEIN 4.5 GM/DL (6.4-8.2)
[2021-09-23] MEDS: KCL 10MEQ/100ML SWI (KRUN) 10 MEQ in IV 1 EA IV SCH ×2 (07:41→08:55)
[2021-09-23] MEDS: PANTOPRAZOLE 40MG VIAL IV SCH (08:55)
[2021-09-23] MEDS: VANCOMYCIN ORAL SOL 250MG/5ML ORAL SYRINGE PO SCH ×2 (08:55→20:09)
[2021-09-23] MEDS: CHLORHEXIDINE GLUCONATE 0.12 % 15ML UDC (PERIDEX ORAL RINSE) MT SCH ×2 (08:55→20:09)
[2021-09-23] MEDS: MIDAZOLAM INJ 2MG/2ML VIAL (J2250 PER 1MG) IV PRN ×2 (16:49→22:23)
[2021-09-23 17:09] LABS: INR 1.92; PROTHROMBIN TIME 22.4 SECONDS (12.7-14.5)
[2021-09-23 17:10] LABS: PARTIAL THROMBOPLASTIN TIME 38.3 SECONDS (25.9-37.0)
[2021-09-23 17:12] LABS: PT 1:2 SUBSTITUTION 14.1 SECONDS
[2021-09-23 17:14] LABS: APTT 1:2 SUBSTITUTION 30.3 SECONDS
[2021-09-24] VITALS (17 sets, daily range): BP systolic 104–142; BP diastolic 55–67
[2021-09-24] MEDS: PIPERACILLIN/TAZOBACTAM SOD 3.375 GM in D5W MINI-BAG PLUS 50 ML IV SCH ×4 (00:15→18:42)
[2021-09-24] MEDS: fentaNYL 100 MCG/2 ML INJECTION IV PRN ×3 (02:36→08:05)
[2021-09-24 05:52] LABS: ABG BASE EXCESS 1.2 (-2.0-2.0); ABG HCO3 23.5 MEQ/L (22.0-26.0); ABG O2 SATURATION 98.7 % (95.0-99.0); ABG PARTIAL PRESSURE CO2 29.8 mmHg (35.0-45.0); ABG PARTIAL PRESSURE O2 124.9 mmHg (75.0-100.0); ABG STANDARD HCO3 25.5 MEQ/L (22.0-26.0); ABG TOTAL CO2 24.4 MEQ/L (23.0-31.0); ABG pH (ARTERIAL) 7.515 UNITS (7.350-7.450)
[2021-09-24 06:08] LABS: HEMATOCRIT 28.6 % (36.0-47.0); HEMOGLOBIN 9.9 g/dl (12.0-15.5); MEAN CORPUSCULAR HEMOGLOBIN 33.4 pg (27.0-33.0); MEAN CORPUSCULAR HGB CONC 34.6 g/dl (32.0-36.5); MEAN CORPUSCULAR VOLUME 96.6 fl (80.0-96.0); PLATELET COUNT, AUTOMATED 142 10^3/uL (150-450); RED BLOOD COUNT 2.96 10^6/uL (4.00-5.40); WHITE BLOOD COUNT 8.3 10^3/uL (4.0-10.0)
[2021-09-24 06:27] LABS: BLOOD UREA NITROGEN 5 MG/DL (7-18); CALCIUM LEVEL 7.7 MG/DL (8.8-10.2); CARBON DIOXIDE LEVEL 26 MEQ/L (21-32); CHLORIDE LEVEL 110 MEQ/L (98-107); CREATININE FOR GFR 0.44 MG/DL (0.55-1.30); GLOMERULAR FILTRATION RATE > 60.0 (>39); GLUCOSE, FASTING 129 MG/DL (70-100); SODIUM LEVEL 141 MEQ/L (136-145)
[2021-09-24] MEDS: KCL 10MEQ/100ML SWI (KRUN) 10 MEQ in IV 1 EA IV SCH ×2 (06:48→08:03)
[2021-09-24] MEDS: VANCOMYCIN ORAL SOL 250MG/5ML ORAL SYRINGE PO SCH ×2 (08:03→20:16)
[2021-09-24] MEDS: PANTOPRAZOLE 40MG VIAL IV SCH (08:03)
[2021-09-24] MEDS: CHLORHEXIDINE GLUCONATE 0.12 % 15ML UDC (PERIDEX ORAL RINSE) MT SCH (08:03)
[2021-09-24 12:39] LABS: BLOOD UREA NITROGEN 5 MG/DL (7-18); CALCIUM LEVEL 7.9 MG/DL (8.8-10.2); CARBON DIOXIDE LEVEL 24 MEQ/L (21-32); CHLORIDE LEVEL 113 MEQ/L (98-107); CREATININE FOR GFR 0.44 MG/DL (0.55-1.30); GLOMERULAR FILTRATION RATE > 60.0 (>39); GLUCOSE, FASTING 119 MG/DL (70-100); MAGNESIUM LEVEL 1.8 MG/DL (1.8-2.4); POTASSIUM SERUM 3.4 MEQ/L (3.5-5.1); SODIUM LEVEL 143 MEQ/L (136-145)
[2021-09-24] MEDS ORDERED: POTASSIUM CHLORIDE 10% LIQ 20 MEQ/15 ML UDC PO ONE (12:50)
[2021-09-24] MEDS: ACETAMINOPHEN 500 MG TAB PO PRN (20:17)
[2021-09-24] MEDS: APIXABAN 5 MG TAB (ELIQUIS) PO SCH (20:18)
[2021-09-25] MEDS: PIPERACILLIN/TAZOBACTAM SOD 3.375 GM in D5W MINI-BAG PLUS 50 ML IV SCH ×2 (01:59→06:07)
[2021-09-25] MEDS: ACETAMINOPHEN 500 MG TAB PO PRN ×3 (02:23→20:27)
[2021-09-25 05:42] LABS: HEMOGLOBIN 10.3 g/dl (12.0-15.5); MEAN CORPUSCULAR HEMOGLOBIN 33.4 pg (27.0-33.0); MEAN CORPUSCULAR HGB CONC 34.3 g/dl (32.0-36.5); MEAN CORPUSCULAR VOLUME 97.4 fl (80.0-96.0); PLATELET COUNT, AUTOMATED 128 10^3/uL (150-450); RED BLOOD COUNT 3.08 10^6/uL (4.00-5.40); WHITE BLOOD COUNT 6.8 10^3/uL (4.0-10.0)
[2021-09-25 06:00] VITALS: BP 126/75
[2021-09-25 06:18] LABS: BLOOD UREA NITROGEN 6 MG/DL (7-18); CALCIUM LEVEL 7.6 MG/DL (8.8-10.2); CARBON DIOXIDE LEVEL 24 MEQ/L (21-32); CHLORIDE LEVEL 111 MEQ/L (98-107); CREATININE FOR GFR 0.33 MG/DL (0.55-1.30); GLOMERULAR FILTRATION RATE > 60.0 (>39); GLUCOSE, FASTING 80 MG/DL (70-100); MAGNESIUM LEVEL 1.6 MG/DL (1.8-2.4); POTASSIUM SERUM 3.9 MEQ/L (3.5-5.1); SODIUM LEVEL 142 MEQ/L (136-145)
[2021-09-25] MEDS: MAG SULF 1GM/100ML (MAG RUN) 1 GM in IV 1 EA IV SCH ×2 (06:35→07:36)
[2021-09-25] MEDS: PANTOPRAZOLE 40MG VIAL IV SCH (08:13)
[2021-09-25] MEDS: APIXABAN 5 MG TAB (ELIQUIS) PO SCH ×2 (08:13→20:27)
[2021-09-25] MEDS: VANCOMYCIN ORAL SOL 250MG/5ML ORAL SYRINGE PO SCH ×2 (08:13→20:27)
[2021-09-25 12:00] VITALS: BP 117/61
[2021-09-25 14:31] VITALS: BP 107/79
[2021-09-26] MEDS: SENOKOT S TAB PO SCH ×4 (00:01→20:45)
[2021-09-26] MEDS: NS 1,000 ML IV SCH ×2 (00:20→00:50)
[2021-09-26] MEDS ORDERED: carisoprodoL 350 MG TAB PO ONE (01:00)
[2021-09-26 06:00] VITALS: BP 112/57
[2021-09-26 08:37] LABS: BASO % 0.4 % (0.0-1.0); EOS # 0.2 10^3/uL (0.0-0.5); EOS % 1.9 % (0.0-3.0); HEMATOCRIT 36.2 % (36.0-47.0); HEMOGLOBIN 12.2 g/dl (12.0-15.5); LYMPH # 1.3 10^3/uL (1.5-5.0); MEAN CORPUSCULAR HEMOGLOBIN 33.5 pg (27.0-33.0); MEAN CORPUSCULAR HGB CONC 33.7 g/dl (32.0-36.5); MEAN CORPUSCULAR VOLUME 99.5 fl (80.0-96.0); MONO # 0.3 10^3/uL (0.0-0.8); MONO % 3.5 % (2.0-8.0); NEUTROPHILS # 7.1 10^3/uL (1.5-8.5); NEUTROPHILS % 79.4 % (36.0-66.0); PLATELET COUNT, AUTOMATED 128 10^3/uL (150-450); RED BLOOD COUNT 3.64 10^6/uL (4.00-5.40); WHITE BLOOD COUNT 8.9 10^3/uL (4.0-10.0)
[2021-09-26 08:51] LABS: ALBUMIN 1.9 GM/DL (3.2-5.2); ALT/SGPT 200 U/L (12-78); BILIRUBIN,TOTAL 4.1 MG/DL (0.2-1.0); BLOOD UREA NITROGEN 6 MG/DL (7-18); CALCIUM LEVEL 7.6 MG/DL (8.8-10.2); CARBON DIOXIDE LEVEL 22 MEQ/L (21-32); CHLORIDE LEVEL 109 MEQ/L (98-107); CREATININE FOR GFR 0.38 MG/DL (0.55-1.30); GLOMERULAR FILTRATION RATE > 60.0 (>39); GLUCOSE, FASTING 90 MG/DL (70-100); POTASSIUM SERUM 3.7 MEQ/L (3.5-5.1); SODIUM LEVEL 141 MEQ/L (136-145); TOTAL PROTEIN 4.1 GM/DL (6.4-8.2)
[2021-09-26 09:16] LABS: LIPASE 83 U/L (73-393)
[2021-09-26] MEDS ORDERED: ISOVUE-370 76% 100ML VIAL As Ordered ONE ×2 (09:18→13:27)
[2021-09-26] MEDS: VANCOMYCIN ORAL SOL 250MG/5ML ORAL SYRINGE PO SCH ×2 (09:20→21:59)
[2021-09-26] MEDS: ACETAMINOPHEN 500 MG TAB PO PRN (09:21)
[2021-09-26] MEDS: APIXABAN 5 MG TAB (ELIQUIS) PO SCH ×2 (09:21→20:45)
[2021-09-26] MEDS: traMADol 50 MG TAB PO PRN ×2 (12:12→21:59)
[2021-09-26 12:17] LABS: HEPATITIS B SURFACE ANTIGEN NEGATIVE (NEGATIVE)
[2021-09-26 12:18] LABS: HEPATITIS B CORE ANTIBODY IGM NEGATIVE (NEGATIVE); HEPATITIS C VIRUS ABY INDEX 0.1 INDEX (<0.8)
[2021-09-26 14:00] VITALS: BP 108/57
[2021-09-27] MEDS: ACETAMINOPHEN TAB 650MG DOSE (2X325MG) PO PRN (02:30)
[2021-09-27 06:00] VITALS: BP 108/62
[2021-09-27 06:23] LABS: HEMATOCRIT 27.6 % (36.0-47.0); MEAN CORPUSCULAR HEMOGLOBIN 33.7 pg (27.0-33.0); MEAN CORPUSCULAR HGB CONC 35.1 g/dl (32.0-36.5); MEAN CORPUSCULAR VOLUME 95.8 fl (80.0-96.0); PLATELET COUNT, AUTOMATED 130 10^3/uL (150-450); RED BLOOD COUNT 2.88 10^6/uL (4.00-5.40); WHITE BLOOD COUNT 8.8 10^3/uL (4.0-10.0)
[2021-09-27 06:25] LABS: HEMOGLOBIN 9.7 g/dl (12.0-15.5)
[2021-09-27 06:41] LABS: ALBUMIN 1.6 GM/DL (3.2-5.2); ALT/SGPT 168 U/L (12-78); BILIRUBIN,TOTAL 1.9 MG/DL (0.2-1.0); BLOOD UREA NITROGEN 5 MG/DL (7-18); CALCIUM LEVEL 7.4 MG/DL (8.8-10.2); CARBON DIOXIDE LEVEL 22 MEQ/L (21-32); CHLORIDE LEVEL 109 MEQ/L (98-107); CREATININE FOR GFR 0.26 MG/DL (0.55-1.30); GLOMERULAR FILTRATION RATE > 60.0 (>39); GLUCOSE, FASTING 71 MG/DL (70-100); POTASSIUM SERUM 3.4 MEQ/L (3.5-5.1); SODIUM LEVEL 138 MEQ/L (136-145); TOTAL PROTEIN 3.5 GM/DL (6.4-8.2)
[2021-09-27] MEDS: APIXABAN 5 MG TAB (ELIQUIS) PO SCH ×2 (09:19→20:18)
[2021-09-27] MEDS: SENOKOT S TAB PO SCH ×2 (09:19→20:18)
[2021-09-27] MEDS: VANCOMYCIN ORAL SOL 250MG/5ML ORAL SYRINGE PO SCH ×2 (09:19→20:18)
[2021-09-27] MEDS: traMADol 50 MG TAB PO PRN ×2 (09:26→17:43)
[2021-09-28] MEDS: traMADol 50 MG TAB PO PRN ×4 (00:32→21:11)
[2021-09-28 05:03] VITALS: BP 100/48
[2021-09-28 05:46] LABS: HEMATOCRIT 30.9 % (36.0-47.0); HEMOGLOBIN 10.5 g/dl (12.0-15.5); MEAN CORPUSCULAR VOLUME 97.2 fl (80.0-96.0); PLATELET COUNT, AUTOMATED 145 10^3/uL (150-450); RED BLOOD COUNT 3.18 10^6/uL (4.00-5.40); WHITE BLOOD COUNT 9.2 10^3/uL (4.0-10.0)
[2021-09-28 06:11] LABS: ALBUMIN 1.6 GM/DL (3.2-5.2); ALT/SGPT 116 U/L (12-78); BILIRUBIN,TOTAL 1.4 MG/DL (0.2-1.0); BLOOD UREA NITROGEN 4 MG/DL (7-18); CALCIUM LEVEL 7.4 MG/DL (8.8-10.2); CARBON DIOXIDE LEVEL 26 MEQ/L (21-32); CHLORIDE LEVEL 105 MEQ/L (98-107); CREATININE FOR GFR 0.25 MG/DL (0.55-1.30); GLOMERULAR FILTRATION RATE > 60.0 (>39); GLUCOSE, FASTING 66 MG/DL (70-100); POTASSIUM SERUM 3.5 MEQ/L (3.5-5.1); SODIUM LEVEL 135 MEQ/L (136-145); TOTAL PROTEIN 3.8 GM/DL (6.4-8.2)
[2021-09-28] MEDS: SENOKOT S TAB PO SCH ×2 (08:47→21:00)
[2021-09-28] MEDS: APIXABAN 5 MG TAB (ELIQUIS) PO SCH ×2 (08:48→21:00)
[2021-09-28] MEDS: VANCOMYCIN ORAL SOL 250MG/5ML ORAL SYRINGE PO SCH ×2 (08:48→21:00)
[2021-09-28] MEDS: TORSEMIDE 20 MG TAB PO SCH (14:00)
[2021-09-29 00:10] VITALS: BP 115/61
[2021-09-29] MEDS: traMADol 50 MG TAB PO PRN ×3 (03:19→20:43)
[2021-09-29 04:53] VITALS: BP 122/56
[2021-09-29 06:36] LABS: HEMATOCRIT 27.5 % (36.0-47.0); HEMOGLOBIN 9.6 g/dl (12.0-15.5); MEAN CORPUSCULAR HGB CONC 34.9 g/dl (32.0-36.5); MEAN CORPUSCULAR VOLUME 97.5 fl (80.0-96.0); PLATELET COUNT, AUTOMATED 157 10^3/uL (150-450); RED BLOOD COUNT 2.82 10^6/uL (4.00-5.40); WHITE BLOOD COUNT 10.2 10^3/uL (4.0-10.0)
[2021-09-29 07:25] LABS: ALBUMIN 1.6 GM/DL (3.2-5.2); ALT/SGPT 74 U/L (12-78); BILIRUBIN,TOTAL 1.2 MG/DL (0.2-1.0); BLOOD UREA NITROGEN 4 MG/DL (7-18); CALCIUM LEVEL 7.2 MG/DL (8.8-10.2); CARBON DIOXIDE LEVEL 24 MEQ/L (21-32); CHLORIDE LEVEL 102 MEQ/L (98-107); CREATININE FOR GFR 0.27 MG/DL (0.55-1.30); GLOMERULAR FILTRATION RATE > 60.0 (>39); GLUCOSE, FASTING 66 MG/DL (70-100); POTASSIUM SERUM 2.9 MEQ/L (3.5-5.1); SODIUM LEVEL 135 MEQ/L (136-145); TOTAL PROTEIN 3.8 GM/DL (6.4-8.2)
[2021-09-29] MEDS ORDERED: POTASSIUM CHLORIDE 10MEQ SR TABLET PO ONE ×2 (07:30→17:20)
[2021-09-29] MEDS ORDERED: DRONABINOL 2.5MG CAP (MARINOL) PO SCH (07:30)
[2021-09-29] MEDS: KCL 10MEQ/100ML SWI (KRUN) 10 MEQ in IV 1 EA IV SCH ×3 (09:01→13:39)
[2021-09-29] MEDS: VANCOMYCIN ORAL SOL 250MG/5ML ORAL SYRINGE PO SCH (09:01)
[2021-09-29] MEDS: SENOKOT S TAB PO SCH ×2 (09:02→20:42)
[2021-09-29] MEDS: TORSEMIDE 20 MG TAB PO SCH (09:03)
[2021-09-29] MEDS: APIXABAN 5 MG TAB (ELIQUIS) PO SCH ×2 (09:03→20:41)
[2021-09-29 14:00] VITALS: BP 117/57
[2021-09-29] MEDS: DRONABINOL 2.5MG CAP (MARINOL) PO SCH ×2 (14:16→18:04)
[2021-09-29 21:16] VITALS: BP 110/56
[2021-09-30 05:35] VITALS: BP 108/62
[2021-09-30 06:27] LABS: HEMATOCRIT 29.3 % (36.0-47.0); HEMOGLOBIN 10.2 g/dl (12.0-15.5); MEAN CORPUSCULAR HEMOGLOBIN 33.4 pg (27.0-33.0); MEAN CORPUSCULAR HGB CONC 34.8 g/dl (32.0-36.5); MEAN CORPUSCULAR VOLUME 96.1 fl (80.0-96.0); PLATELET COUNT, AUTOMATED 188 10^3/uL (150-450); RED BLOOD COUNT 3.05 10^6/uL (4.00-5.40); WHITE BLOOD COUNT 9.8 10^3/uL (4.0-10.0)
[2021-09-30 07:08] LABS: ALBUMIN 1.6 GM/DL (3.2-5.2); ALT/SGPT 62 U/L (12-78); BILIRUBIN,TOTAL 1.1 MG/DL (0.2-1.0); BLOOD UREA NITROGEN 2 MG/DL (7-18); CALCIUM LEVEL 7.5 MG/DL (8.8-10.2); CARBON DIOXIDE LEVEL 28 MEQ/L (21-32); CHLORIDE LEVEL 100 MEQ/L (98-107); CREATININE FOR GFR 0.32 MG/DL (0.55-1.30); GLOMERULAR FILTRATION RATE > 60.0 (>39); GLUCOSE, FASTING 75 MG/DL (70-100); POTASSIUM SERUM 2.9 MEQ/L (3.5-5.1); SODIUM LEVEL 133 MEQ/L (136-145); TOTAL PROTEIN 4.2 GM/DL (6.4-8.2)
[2021-09-30] MEDS ORDERED: POTASSIUM CHLORIDE 10MEQ SR TABLET PO ONE (07:15)
[2021-09-30] MEDS: KCL 10MEQ/100ML SWI (KRUN) 10 MEQ in IV 1 EA IV SCH ×2 (07:55→09:13)
[2021-09-30] MEDS: DRONABINOL 2.5MG CAP (MARINOL) PO SCH ×3 (07:56→17:40)
[2021-09-30] MEDS: SENOKOT S TAB PO SCH ×2 (07:56→21:00)
[2021-09-30] MEDS: APIXABAN 5 MG TAB (ELIQUIS) PO SCH ×2 (07:57→21:07)
[2021-09-30] MEDS: traMADol 50 MG TAB PO PRN ×2 (07:57→14:35)
[2021-09-30] MEDS: POTASSIUM CHLORIDE 10MEQ SR TABLET PO SCH ×2 (09:11→21:07)
[2021-09-30 14:00] VITALS: BP 105/76
[2021-09-30 16:49] LABS: BLOOD UREA NITROGEN 3 MG/DL (7-18); CALCIUM LEVEL 7.7 MG/DL (8.8-10.2); CARBON DIOXIDE LEVEL 27 MEQ/L (21-32); CHLORIDE LEVEL 101 MEQ/L (98-107); CREATININE FOR GFR 0.34 MG/DL (0.55-1.30); GLOMERULAR FILTRATION RATE > 60.0 (>39); GLUCOSE, FASTING 68 MG/DL (70-100); POTASSIUM SERUM 4.5 MEQ/L (3.5-5.1); SODIUM LEVEL 131 MEQ/L (136-145)
[2021-09-30 22:00] VITALS: BP 106/66
[2021-10-01 06:00] VITALS: BP 107/68
[2021-10-01 06:29] LABS: HEMATOCRIT 27.4 % (36.0-47.0); HEMOGLOBIN 9.3 g/dl (12.0-15.5); MEAN CORPUSCULAR HEMOGLOBIN 32.9 pg (27.0-33.0); MEAN CORPUSCULAR HGB CONC 33.9 g/dl (32.0-36.5); MEAN CORPUSCULAR VOLUME 96.8 fl (80.0-96.0); PLATELET COUNT, AUTOMATED 219 10^3/uL (150-450); RED BLOOD COUNT 2.83 10^6/uL (4.00-5.40); WHITE BLOOD COUNT 11.6 10^3/uL (4.0-10.0)
[2021-10-01 06:52] LABS: ALBUMIN 1.6 GM/DL (3.2-5.2); ALT/SGPT 49 U/L (12-78); BILIRUBIN,TOTAL 1.2 MG/DL (0.2-1.0); BLOOD UREA NITROGEN 3 MG/DL (7-18); CALCIUM LEVEL 7.7 MG/DL (8.8-10.2); CARBON DIOXIDE LEVEL 25 MEQ/L (21-32); CHLORIDE LEVEL 106 MEQ/L (98-107); CREATININE FOR GFR 0.29 MG/DL (0.55-1.30); GLOMERULAR FILTRATION RATE > 60.0 (>39); GLUCOSE, FASTING 75 MG/DL (70-100); POTASSIUM SERUM 5.2 MEQ/L (3.5-5.1); SODIUM LEVEL 135 MEQ/L (136-145)
[2021-10-01] MEDS: SENOKOT S TAB PO SCH ×2 (10:27→20:58)
[2021-10-01] MEDS: APIXABAN 5 MG TAB (ELIQUIS) PO SCH ×2 (10:27→20:58)
[2021-10-01] MEDS: DRONABINOL 2.5MG CAP (MARINOL) PO SCH ×3 (10:27→18:44)
[2021-10-01] MEDS: TORSEMIDE 20 MG TAB PO SCH (10:28)
[2021-10-01 12:54] LABS: BLOOD UREA NITROGEN 3 MG/DL (7-18); CALCIUM LEVEL 7.9 MG/DL (8.8-10.2); CARBON DIOXIDE LEVEL 27 MEQ/L (21-32); CHLORIDE LEVEL 103 MEQ/L (98-107); GLOMERULAR FILTRATION RATE > 60.0 (>39); GLUCOSE, FASTING 89 MG/DL (70-100); POTASSIUM SERUM 4.4 MEQ/L (3.5-5.1); SODIUM LEVEL 137 MEQ/L (136-145)
[2021-10-01 14:00] VITALS: BP 110/65
[2021-10-01] MEDS: traMADol 50 MG TAB PO PRN (18:48)
[2021-10-01 22:00] VITALS: BP 98/60
[2021-10-02] MEDS: traMADol 50 MG TAB PO PRN (01:05)
[2021-10-02 06:00] VITALS: BP 111/58
[2021-10-02] MEDS: APIXABAN 5 MG TAB (ELIQUIS) PO SCH ×2 (08:53→20:54)
[2021-10-02] MEDS: SENOKOT S TAB PO SCH ×2 (08:53→20:54)
[2021-10-02] MEDS: DRONABINOL 2.5MG CAP (MARINOL) PO SCH ×3 (08:53→18:43)
[2021-10-02] MEDS: TORSEMIDE 20 MG TAB PO SCH (08:53)
[2021-10-02 14:00] VITALS: BP 108/58
[2021-10-02 21:35] VITALS: BP 92/46
[2021-10-02] MEDS ORDERED: NS 1,000 ML IV ONE (21:45)
[2021-10-03] MEDS: traMADol 50 MG TAB PO PRN ×2 (01:53→15:04)
[2021-10-03 02:00] VITALS: BP 116/60
[2021-10-03 05:34] LABS: BASO # 0.1 10^3/uL (0.0-0.2); BASO % 0.4 % (0.0-1.0); EOS % 0.3 % (0.0-3.0); HEMATOCRIT 26.2 % (36.0-47.0); HEMOGLOBIN 9.3 g/dl (12.0-15.5); LYMPH # 1.6 10^3/uL (1.5-5.0); LYMPH % 12.1 % (24.0-44.0); MEAN CORPUSCULAR HGB CONC 35.5 g/dl (32.0-36.5); MEAN CORPUSCULAR VOLUME 92.9 fl (80.0-96.0); MONO # 1.1 10^3/uL (0.0-0.8); MONO % 7.9 % (2.0-8.0); NEUTROPHILS # 10.6 10^3/uL (1.5-8.5); NEUTROPHILS % 78.9 % (36.0-66.0); PLATELET COUNT, AUTOMATED 262 10^3/uL (150-450); RED BLOOD COUNT 2.82 10^6/uL (4.00-5.40); WHITE BLOOD COUNT 13.5 10^3/uL (4.0-10.0)
[2021-10-03 05:45] VITALS: BP 114/55
[2021-10-03] MEDS: APIXABAN 5 MG TAB (ELIQUIS) PO SCH (08:48)
[2021-10-03] MEDS: SENOKOT S TAB PO SCH ×2 (08:48→21:27)
[2021-10-03] MEDS: DRONABINOL 2.5MG CAP (MARINOL) PO SCH ×3 (08:48→17:27)
[2021-10-03] MEDS: TORSEMIDE 20 MG TAB PO SCH (08:48)
[2021-10-03 14:00] VITALS: BP 114/57
[2021-10-03 20:18] VITALS: BP 96/52
[2021-10-03] MEDS: ACETAMINOPHEN TAB 650MG DOSE (2X325MG) PO PRN (21:28)
[2021-10-03] MEDS: ONDANSETRON 4MG ORAL DISINTEGRATING TAB PO PRN (21:28)
[2021-10-04 00:05] VITALS: BP 96/74
[2021-10-04 01:33] VITALS: BP 95/48
[2021-10-04] MEDS: traMADol 50 MG TAB PO PRN ×2 (01:51→12:50)
[2021-10-04 03:01] LABS: APPEARANCE, URINE CLOUDY (CLEAR); BACTERIA, URINE AUTO 3+ (NEGATIVE); BILIRUBIN, URINE AUTO NEGATIVE (NEGATIVE); BLOOD, URINE BLOOD 1+ (NEGATIVE); COLOR, URINE AMBER (YELLOW); GLUCOSE, URINE (UA) AUTO NEGATIVE (NEGATIVE); KETONE, URINE AUTO NEGATIVE (NEGATIVE); LEUKOCYTE ESTERASE, URINE AUTO 3+ (NEGATIVE); MUCUS, URINE LARGE (NEGATIVE); NITRITE, URINE AUTO NEGATIVE (NEGATIVE); PROTEIN, URINE AUTO 2+ mg/dL (NEGATIVE); RBC, URINE AUTO 10 /HPF (0-3); SPECIFIC GRAVITY URINE AUTO 1.008 (1.002-1.035); SQUAMOUS EPITHELIAL CELL UR AU 11 /HPF (0-6); UROBILINOGEN, URINE AUTO 0.2 mg/dL (0.0-2.0); WBC, URINE AUTO TNTC /HPF (0-3)
[2021-10-04 04:10] VITALS: BP 99/60
[2021-10-04 05:34] LABS: BASO # 0.1 10^3/uL (0.0-0.2); BASO % 0.6 % (0.0-1.0); EOS # 0.2 10^3/uL (0.0-0.5); EOS % 1.9 % (0.0-3.0); HEMATOCRIT 25.6 % (36.0-47.0); HEMOGLOBIN 8.9 g/dl (12.0-15.5); LYMPH # 2.7 10^3/uL (1.5-5.0); LYMPH % 22.2 % (24.0-44.0); MEAN CORPUSCULAR HEMOGLOBIN 32.5 pg (27.0-33.0); MEAN CORPUSCULAR HGB CONC 34.8 g/dl (32.0-36.5); MEAN CORPUSCULAR VOLUME 93.4 fl (80.0-96.0); NEUTROPHILS # 8.3 10^3/uL (1.5-8.5); NEUTROPHILS % 66.9 % (36.0-66.0); PLATELET COUNT, AUTOMATED 288 10^3/uL (150-450); RED BLOOD COUNT 2.74 10^6/uL (4.00-5.40); WHITE BLOOD COUNT 12.4 10^3/uL (4.0-10.0)
[2021-10-04 05:44] LABS: INR 2.67; PROTHROMBIN TIME 28.8 SECONDS (12.7-14.5)
[2021-10-04 05:45] LABS: PARTIAL THROMBOPLASTIN TIME 57.2 SECONDS (25.9-37.0)
[2021-10-04 06:22] LABS: BLOOD UREA NITROGEN 5 MG/DL (7-18); CREATININE FOR GFR 0.43 MG/DL (0.55-1.30); GLOMERULAR FILTRATION RATE > 60.0 (>39); GLUCOSE, FASTING 68 MG/DL (70-100)
[2021-10-04] MEDS ORDERED: PHYTONADIONE 5 MG TAB PO STA (06:33)
[2021-10-04 06:46] LABS: CHLORIDE LEVEL 94 MEQ/L (98-107); POTASSIUM SERUM 2.4 MEQ/L (3.5-5.1); SODIUM LEVEL 133 MEQ/L (136-145)
[2021-10-04 06:47] LABS: CALCIUM LEVEL 7.1 MG/DL (8.8-10.2); CARBON DIOXIDE LEVEL 30 mmol/L (20-29)
[2021-10-04] MEDS: DRONABINOL 2.5MG CAP (MARINOL) PO SCH ×3 (07:30→18:36)
[2021-10-04] MEDS ORDERED: POTASSIUM CHLORIDE 10MEQ SR TABLET PO ONE (07:50)
[2021-10-04] MEDS ORDERED: MAG SULF 1GM/100ML (MAG RUN) 1 GM in IV 1 EA IV ONE (08:00)
[2021-10-04] MEDS: SENOKOT S TAB PO SCH ×2 (09:00→22:25)
[2021-10-04] MEDS ORDERED: PHYTONADIONE 5 MG TAB PO SCH (09:00)
[2021-10-04] MEDS ORDERED: KCL 10MEQ/100ML SWI (KRUN) 10 MEQ in IV 1 EA IV SCH (09:00)
[2021-10-04] MEDS ORDERED: ISOVUE-300 61% 50ML VIAL As Ordered ONE (11:28)
[2021-10-04] MEDS ORDERED: LIDOCAINE 1% MDV 20ML VIAL As Ordered ONE (11:28)
[2021-10-04 13:21] LABS: ALBUMIN 1.7 GM/DL (3.2-5.2); ALT/SGPT 33 U/L (12-78); BILIRUBIN,TOTAL 0.9 MG/DL (0.2-1.0); BLOOD UREA NITROGEN 5 MG/DL (7-18); CALCIUM LEVEL 7.7 MG/DL (8.8-10.2); CARBON DIOXIDE LEVEL 26 MEQ/L (21-32); CHLORIDE LEVEL 95 MEQ/L (98-107); CREATININE FOR GFR 0.57 MG/DL (0.55-1.30); GLOMERULAR FILTRATION RATE > 60.0 (>39); GLUCOSE, FASTING 95 MG/DL (70-100); POTASSIUM SERUM 2.7 MEQ/L (3.5-5.1); SODIUM LEVEL 131 MEQ/L (136-145); TOTAL PROTEIN 4.5 GM/DL (6.4-8.2)
[2021-10-04 14:00] VITALS: BP 98/47
[2021-10-04] MEDS: ACETAMINOPHEN TAB 650MG DOSE (2X325MG) PO PRN (15:47)
[2021-10-04] MEDS ORDERED: POTASSIUM CHL PWD 20 MEQ PACKET PO ONE (18:00)
[2021-10-04 22:00] VITALS: BP_SYST 107; BP_SYST 99; BP_DIAS 46; BP_DIAS 47
[2021-10-05] MEDS: traMADol 50 MG TAB PO PRN ×4 (00:15→21:54)
[2021-10-05 00:40] LABS: BLOOD UREA NITROGEN 3 MG/DL (7-18); CALCIUM LEVEL 7.7 MG/DL (8.8-10.2); CARBON DIOXIDE LEVEL 27 MEQ/L (21-32); CHLORIDE LEVEL 98 MEQ/L (98-107); CREATININE FOR GFR 0.35 MG/DL (0.55-1.30); GLOMERULAR FILTRATION RATE > 60.0 (>39); GLUCOSE, FASTING 73 MG/DL (70-100); POTASSIUM SERUM 3.5 MEQ/L (3.5-5.1); SODIUM LEVEL 129 MEQ/L (136-145)
[2021-10-05 06:00] VITALS: BP 118/57
[2021-10-05 06:36] LABS: BASO # 0.1 10^3/uL (0.0-0.2); BASO % 0.8 % (0.0-1.0); EOS # 0.2 10^3/uL (0.0-0.5); EOS % 1.7 % (0.0-3.0); HEMATOCRIT 27.8 % (36.0-47.0); HEMOGLOBIN 9.7 g/dl (12.0-15.5); LYMPH # 2.2 10^3/uL (1.5-5.0); LYMPH % 21.7 % (24.0-44.0); MEAN CORPUSCULAR HEMOGLOBIN 33.3 pg (27.0-33.0); MEAN CORPUSCULAR HGB CONC 34.9 g/dl (32.0-36.5); MEAN CORPUSCULAR VOLUME 95.5 fl (80.0-96.0); MONO # 0.8 10^3/uL (0.0-0.8); MONO % 8.3 % (2.0-8.0); NEUTROPHILS # 6.8 10^3/uL (1.5-8.5); NEUTROPHILS % 67.2 % (36.0-66.0); PLATELET COUNT, AUTOMATED 316 10^3/uL (150-450); RED BLOOD COUNT 2.91 10^6/uL (4.00-5.40); WHITE BLOOD COUNT 10.1 10^3/uL (4.0-10.0)
[2021-10-05 06:58] LABS: BLOOD UREA NITROGEN 2 MG/DL (7-18); CALCIUM LEVEL 7.7 MG/DL (8.8-10.2); CARBON DIOXIDE LEVEL 32 MEQ/L (21-32); CHLORIDE LEVEL 100 MEQ/L (98-107); CREATININE FOR GFR 0.35 MG/DL (0.55-1.30); GLOMERULAR FILTRATION RATE > 60.0 (>39); GLUCOSE, FASTING 71 MG/DL (70-100); POTASSIUM SERUM 3.1 MEQ/L (3.5-5.1); SODIUM LEVEL 134 MEQ/L (136-145)
[2021-10-05] MEDS: DRONABINOL 2.5MG CAP (MARINOL) PO SCH ×3 (07:51→18:18)
[2021-10-05 07:52] LABS: MAGNESIUM LEVEL 1.6 MG/DL (1.8-2.4)
[2021-10-05] MEDS: PHYTONADIONE 5 MG TAB PO SCH (08:38)
[2021-10-05] MEDS ORDERED: POTASSIUM CHL PWD 20 MEQ PACKET PO ONE (09:00)
[2021-10-05] MEDS ORDERED: SENOKOT S TAB PO PRN (09:00)
[2021-10-05 11:31] LABS: BLOOD UREA NITROGEN 2 MG/DL (7-18); CARBON DIOXIDE LEVEL 27 MEQ/L (21-32); CHLORIDE LEVEL 99 MEQ/L (98-107); CREATININE FOR GFR 0.52 MG/DL (0.55-1.30); GLOMERULAR FILTRATION RATE > 60.0 (>39); GLUCOSE, FASTING 113 MG/DL (70-100); SODIUM LEVEL 133 MEQ/L (136-145)
[2021-10-05 11:32] LABS: CALCIUM LEVEL 7.7 MG/DL (8.8-10.2)
[2021-10-05 14:00] VITALS: BP 95/59
[2021-10-05 18:53] VITALS: BP 102/58
[2021-10-05 21:45] VITALS: BP 110/54
[2021-10-05] MEDS: TRIAMCINOLONE ACET 0.1% CREAM 80 GM TOP SCH (21:54)
[2021-10-06 06:00] VITALS: BP 116/62
[2021-10-06 06:21] LABS: BASO # 0.1 10^3/uL (0.0-0.2); BASO % 0.6 % (0.0-1.0); EOS # 0.2 10^3/uL (0.0-0.5); EOS % 2.1 % (0.0-3.0); HEMATOCRIT 27.4 % (36.0-47.0); HEMOGLOBIN 9.6 g/dl (12.0-15.5); LYMPH # 2.5 10^3/uL (1.5-5.0); LYMPH % 23.1 % (24.0-44.0); MEAN CORPUSCULAR HEMOGLOBIN 33.3 pg (27.0-33.0); MEAN CORPUSCULAR VOLUME 95.1 fl (80.0-96.0); MONO # 0.8 10^3/uL (0.0-0.8); MONO % 7.7 % (2.0-8.0); NEUTROPHILS # 7.1 10^3/uL (1.5-8.5); NEUTROPHILS % 65.9 % (36.0-66.0); PLATELET COUNT, AUTOMATED 331 10^3/uL (150-450); RED BLOOD COUNT 2.88 10^6/uL (4.00-5.40); WHITE BLOOD COUNT 10.8 10^3/uL (4.0-10.0)
[2021-10-06 06:34] LABS: INR 1.25; PROTHROMBIN TIME 16.1 SECONDS (12.7-14.5)
[2021-10-06 06:35] LABS: PARTIAL THROMBOPLASTIN TIME 41.8 SECONDS (25.9-37.0)
[2021-10-06 07:23] LABS: ALBUMIN 1.5 GM/DL (3.2-5.2); ALT/SGPT 29 U/L (12-78); BLOOD UREA NITROGEN 1 MG/DL (7-18); CALCIUM LEVEL 7.8 MG/DL (8.8-10.2); CARBON DIOXIDE LEVEL 28 MEQ/L (21-32); CHLORIDE LEVEL 99 MEQ/L (98-107); CREATININE FOR GFR 0.26 MG/DL (0.55-1.30); GLOMERULAR FILTRATION RATE > 60.0 (>39); GLUCOSE, FASTING 64 MG/DL (70-100); MAGNESIUM LEVEL 1.6 MG/DL (1.8-2.4); SODIUM LEVEL 132 MEQ/L (136-145); TOTAL PROTEIN 4.5 GM/DL (6.4-8.2)
[2021-10-06] MEDS: PHYTONADIONE 5 MG TAB PO SCH (08:35)
[2021-10-06] MEDS: TRIAMCINOLONE ACET 0.1% CREAM 80 GM TOP SCH ×2 (08:35→20:16)
[2021-10-06] MEDS: DRONABINOL 2.5MG CAP (MARINOL) PO SCH ×3 (08:36→17:46)
[2021-10-06] MEDS ORDERED: POTASSIUM CHLORIDE 10MEQ SR TABLET PO ONE (08:55)
[2021-10-06] MEDS: traMADol 50 MG TAB PO PRN ×2 (11:49→21:09)
[2021-10-06 21:02] VITALS: BP 106/54
[2021-10-07 06:00] VITALS: BP 104/48
[2021-10-07 06:21] LABS: HEMATOCRIT 24.6 % (36.0-47.0); HEMOGLOBIN 8.4 g/dl (12.0-15.5); MEAN CORPUSCULAR HEMOGLOBIN 32.9 pg (27.0-33.0); MEAN CORPUSCULAR HGB CONC 34.1 g/dl (32.0-36.5); MEAN CORPUSCULAR VOLUME 96.5 fl (80.0-96.0); PLATELET COUNT, AUTOMATED 296 10^3/uL (150-450); RED BLOOD COUNT 2.55 10^6/uL (4.00-5.40); WHITE BLOOD COUNT 10.2 10^3/uL (4.0-10.0)
[2021-10-07 06:44] LABS: BLOOD UREA NITROGEN 2 MG/DL (7-18); CALCIUM LEVEL 7.9 MG/DL (8.8-10.2); CARBON DIOXIDE LEVEL 25 MEQ/L (21-32); CHLORIDE LEVEL 102 MEQ/L (98-107); CREATININE FOR GFR 0.37 MG/DL (0.55-1.30); GLOMERULAR FILTRATION RATE > 60.0 (>39); GLUCOSE, FASTING 66 MG/DL (70-100); POTASSIUM SERUM 4.4 MEQ/L (3.5-5.1); SODIUM LEVEL 134 MEQ/L (136-145)
[2021-10-07] MEDS: PHYTONADIONE 5 MG TAB PO SCH (09:57)
[2021-10-07] MEDS: DRONABINOL 2.5MG CAP (MARINOL) PO SCH ×4 (09:57→17:46)
[2021-10-07] MEDS: TRIAMCINOLONE ACET 0.1% CREAM 80 GM TOP SCH ×3 (09:57→21:42)
[2021-10-07] MEDS: AUGMENTIN 875 MG TAB PO SCH ×2 (13:12→21:41)
[2021-10-07 14:00] VITALS: BP 105/66
[2021-10-07 22:00] VITALS: BP 108/60
[2021-10-08 06:00] VITALS: BP 106/49
[2021-10-08] MEDS: DRONABINOL 2.5MG CAP (MARINOL) PO SCH (07:30)
[2021-10-08] MEDS: TRIAMCINOLONE ACET 0.1% CREAM 80 GM TOP SCH (09:00)
[2021-10-08] MEDS: AUGMENTIN 875 MG TAB PO SCH (09:53)
[2021-10-08] MEDS: traMADol 50 MG TAB PO PRN (16:06)
[2021-10-08] MEDS ORDERED: SCOPOLAMINE 1MG TRANSDERMAL PATCH TOP PRN (17:55)
[2021-10-08] MEDS ORDERED: LORazepam 2 MG/ML VIAL IV PRN (17:55)
[2021-10-08] MEDS ORDERED: MORPHINE 2 MG/ML 1ML VIAL IV PRN (17:55)
[2021-10-08] MEDS ORDERED: FLEET ENEMA PR PRN (17:55)
[2021-10-08] MEDS ORDERED: MORPHINE 10MG/0.5ML ORAL CONCENTRATE SOLUTION U/D SL PRN (17:55)
[2021-10-08] MEDS ORDERED: APIXABAN 5 MG TAB (ELIQUIS) PO SCH (21:00)
[2021-10-09] MEDS: traMADol 50 MG TAB PO PRN (15:27)
[2021-10-10] MEDS: traMADol 50 MG TAB PO PRN ×2 (11:57→21:55)
[2021-10-10] MEDS: LORazepam 1 MG TAB PO PRN (21:54)
[2021-10-11] MEDS: LORazepam 1 MG TAB PO PRN (21:23)
[2021-10-12] MEDS: LORazepam 1 MG TAB PO PRN (23:28)
[2021-10-14] MEDS: traMADol 50 MG TAB PO PRN ×2 (11:55→22:48)
[2021-10-14] MEDS: LORazepam 1 MG TAB PO PRN ×2 (16:25→22:48)
[2021-10-14] MEDS ORDERED: HYDROMORPHONE HCL 0.5 MG/ 0.5 ML SYRINGE (J1170 PER 1) IV PRN (16:30)
[2021-10-14] MEDS ORDERED: PILL CUTTER 1 EACH XX PRN (16:55)
[2021-10-14] MEDS: HYDROmorphone 2 MG TAB PO PRN (17:04)
[2021-10-15] MEDS: LORazepam 1 MG TAB PO PRN ×2 (06:26→12:59)
[2021-10-15] MEDS: HYDROmorphone 2 MG TAB PO PRN (06:26)
[2021-10-16] MEDS: traMADol 50 MG TAB PO PRN (05:24)
[2021-10-16] MEDS: LORazepam 1 MG TAB PO PRN ×2 (05:24→12:29)
[2021-10-16] MEDS: HYDROmorphone 2 MG TAB PO PRN (12:35)
[2021-10-17] MEDS: traMADol 50 MG TAB PO PRN (00:08)
[2021-10-17] MEDS: LORazepam 1 MG TAB PO PRN (00:08)
[2021-10-17] MEDS ORDERED: HYDROMORPHONE HCL 0.5 MG/ 0.5 ML SYRINGE (J1170 PER 1) IV PRN (02:45)
[2021-10-17] MEDS: HYDROmorphone 2 MG TAB PO PRN ×2 (05:49→21:53)
[2021-10-18] MEDS: HYDROmorphone 2 MG TAB PO PRN (14:23)
[2021-10-18] MEDS: ONDANSETRON 4MG ORAL DISINTEGRATING TAB PO PRN (15:19)
[2021-10-19] MEDS: HYDROmorphone 2 MG TAB PO PRN (05:32)
[2021-10-19] MEDS ORDERED: HYOS125TA PO (11:48)
[2021-10-19] MEDS ORDERED: ATIV1TAB10 PO (11:48)
[2021-10-19] MEDS ORDERED: MORP1SOL5 PO (11:48)
[2021-10-19] MEDS ORDERED: DILA2TAB6 PO (13:20)
== END 2021-10-19 12:29 | disposition hospice, inpatient (51) | DRG 673 ==
LOC: EDBD 19:26 → M ED 19:26 → M ED INP 22:49 → ENRESERV 09-14 11:39 → M MS5PR 09-14 16:50 → M ICU 09-21 05:00 → M MSPAV 09-25 14:28
PROVIDERS: ADMIT Internal Medicine; ATTEND Family Medicine
PROC: 02HV33Z Insertion of Infusion Device into Superior Vena Cava, Percutaneous Approach (ICD-10-PCS; 2021-09-21)
PROC: 0D1 Gastrointestinal System, Bypass (ICD-10-PCS; 2021-09-21)
PROC: 5A1945Z Respiratory Ventilation, 24-96 Consecutive Hours (ICD-10-PCS; 2021-09-21)
PROC: 30233J1 Transfusion of Nonautologous Serum Albumin into Peripheral Vein, Percutaneous Approach (ICD-10-PCS; 2021-09-21)
PROC: 0DTN0ZZ Resection of Sigmoid Colon, Open Approach (ICD-10-PCS; principal; 2021-09-21 00:24)
DX: N39.0 Urinary tract infection, site not specified (principal); R65.21 Severe sepsis with septic shock; A41.9 Sepsis, unspecified organism; G93.41 Metabolic encephalopathy; J96.01 Acute respiratory failure with hypoxia; E87.1 Hypo-osmolality and hyponatremia; I70.262 Atherosclerosis of native arteries of extremities with gangrene, left leg; R18.8 Other ascites; E46 Unspecified protein-calorie malnutrition; K57.20 Diverticulitis of large intestine with perforation and abscess without bleeding; E87.2 Acidosis; J90 Pleural effusion, not elsewhere classified; M86.9 Osteomyelitis, unspecified; K55.1 Chronic vascular disorders of intestine; Z68.1 Body mass index [BMI] 19.9 or less, adult; Z51.5 Encounter for palliative care; Z66 Do not resuscitate; R53.1 Weakness; I95.1 Orthostatic hypotension; R74.01 Elevation of levels of liver transaminase levels; E87.6 Hypokalemia; L97.524 Non-pressure chronic ulcer of other part of left foot with necrosis of bone; E78.5 Hyperlipidemia, unspecified; R62.7 Adult failure to thrive; B96.89 Other specified bacterial agents as the cause of diseases classified elsewhere; F17.200 Nicotine dependence, unspecified, uncomplicated; R63.6 Underweight; K76.0 Fatty (change of) liver, not elsewhere classified; B96.20 Unspecified Escherichia coli [E. coli] as the cause of diseases classified elsewhere; R21 Rash and other nonspecific skin eruption; Z86.711 Personal history of pulmonary embolism; Z87.19 Personal history of other diseases of the digestive system; Z79.01 Long term (current) use of anticoagulants; Z79.02 Long term (current) use of antithrombotics/antiplatelets; Z90.49 Acquired absence of other specified parts of digestive tract; Z79.899 Other long term (current) drug therapy; Z88.5 Allergy status to narcotic agent; Z88.8 Allergy status to other drugs, medicaments and biological substances; Z91.030 Bee allergy status